=== PATIENT | female | born 2000 | race Caucasian/White ===

== ENCOUNTER 2018-08-08 09:32 | Emergency (ER) | payer MEDICAID, SELFPAY ==
[2018-08-08 09:34] VITALS: BP 145/63; PULSE 88; RESP 12; TEMP 36.6; O2SAT 98
--- NOTE | 2018-08-08 10:05 | DI.RAD_ITS ---
SYMPTOM/DIAGNOSIS: FOOSH RIGHT HAND: No fracture or dislocation is seen. IMPRESSION: Negative right hand.
--- NOTE | 2018-08-08 10:05 | DI.RAD_ITS ---
SYMPTOM/DIAGNOSIS: FOOSH RIGHT WRIST: No fracture or dislocation is seen. IMPRESSION: Negative right wrist.
--- NOTE | 2018-08-08 10:08 | W.ED.GENAD ---
Discharge Plan Disposition Patient Disposition: HOME Condition: Fair Discharge Details Chief Complaint: Orthopedic Clinical Impression: Contusion of right wrist Primary Care Provider: Janet Ferraro ED Provider: Sunita Smith Home Meds and New Rx's Prescriptions: Continue fluticasone [Flovent HFA] 12 GM HFA aerosol inhaler 2 puff Inhalation BID Qty: 1 RF: 1 inhalational spacing device [Aerochamber Mini] 1 EACH spacer 1 ea Miscellaneous Q4H PRN Qty: 1 RF: 0 methadone [Dolophine] 10 MG tablet 95 mg PO DAILY 365 Days Qty: 60 RF: 0 albuterol sulfate [ProAir HFA] 200 PUFF HFA aerosol inhaler 2 puff Inhalation Q4H PRN PRNQty: 1 RF: 0 gabapentin 800 MG tablet 800 mg PO BID RF: 0 fluoxetine 40 MG capsule 40 mg PO DAILY RF: 0 guanfacine 1 MG tablet 10 mg PO DAILY RF: 0 Discharge Instructions Instructions: Contusion in Adults (ED) Additional Instructions: Encourage rest, ice, elevation. Tylenol and/or ibuprofen as needed for discomfort. Ypu may take 1000 mg of Tylenol every 6 hours as well as 600 mg of ibuprofen every 6 hours . Continue with brace for pain persist. Please follow-up with primary care in the next 1-2 weeks if pain persists Referrals: Janet Ferraro, PROCESS ENG [Primary Care Provider] - ([phone]) Medical Decision Making [facility] Narrative Medical decision making narrative: Patient presents today with chief complaint of contusion to the left wrist. Patient reports that she fell 2 days ago striking the ulnar side of the left wrist. She has noted ecchymosis. Ecchymosis is noted on today's exam. She will not move the wrist secondary to discomfort. She reports she is Tylenol and ibuprofen initially but that this was unsuccessful at alleviating her discomfort. Patient does not feel this is sufficient for her pain. Patient will be given oral ketorolac. She is declining any injections. Patient is no longer breast-feeding. UPT was negative today was obtain imaging of the patient's left wrist and hand. Sensation is intact on exam. No deformity is notable. X-ray reviewed by myself as well as radiologist. I did consult with her on the phone and she advised that no acute abdomen is noted in the hand or wrist. Discussed findings with the patient. Advised contusion. Patient placed in the universal wrist splint. Encouraged rest, ice, elevation. Tylenol and/or ibuprofen as needed for discomfort. Advised follow-up with primary care in 1-2 weeks if pain persists. Advised him when she could safely take ibuprofen once again. All of her questions and concerns were addressed and she is in agreement with this plan HPI - General Adult General Mode of arrival: ambulatory. Date/Time Provider Initiated Documentation: 08/08/18 09:59. Limitations to Documentation: no limitations. Information obtained by: patient and family. HPI Narrative: Patient is a [id number] 18-year-old female presenting today with chief complaint of right hand and wrist pain. She reports that 2 days ago, while carrying her infant up a flight of stairs she tripped falling forward. Reports that she had the infant in her left hand and tacked to the right arm underneath her. Reports that she struck the ulnar side of the hand and wrist against the steps. Has noted ecchymosis over this area. Since that time has had exquisite discomfort with movement and has not been able to use the extremity. She denies any altered sensation. States that she also struck the right side of her chest but that this pain has since subsided. Denies any difficulty breathing or shortness of breath. LMP 1 month ago. She is trying to conceive Related Data Home Medications Medication Instructions Recorded Confirmed fluoxetine 40 mg PO DAILY 05/22/18 08/08/18 gabapentin 800 mg PO BID 05/22/18 08/08/18 guanfacine 10 mg PO DAILY 05/22/18 08/08/18 Previous Rx's Medication Instructions Recorded albuterol sulfate [ProAir HFA] 2 puff INHALATION Q4H PRN PRN #1 11/02/17 inh Allergies Allergy/AdvReac Type Severity Reaction Status Date / Time adhesive tape Allergy Intermediate Skin Rash/ Unverified 08/08/18 09:38 blisters latex AdvReac Unverified 08/08/18 09:38 General Stated Complaint: Orthopedic MARIALUISA: 4 Review of Systems Constitutional Denies chills and Denies fever(s) Cardiovascular Denies chest pain Respiratory Reports as per HPI Musculoskeletal Reports as per HPI Integumentary/Breasts Reports as per HPI Neurologic Reports as per HPI PFSH Family History Mother Substance abuse Father Substance abuse [place] Substance abuse GRANDPARENT Substance abuse Essential hypertension Depression Heart disease Hyperlipidemia Neoplasm Asthma Medical History ADHD (attention deficit hyperactivity disorder) Acne Anxiety Asthma Depression Eczema Headache Inguinal hernia Insomnia School problem UTI (urinary tract infection) Vision problem Social History Smoking/Tobacco Use Status: Current every day Surgical History section (03/14/18) Repair of inguinal hernia Repair of umbilical hernia (10/29/16) Tooth extraction Exam Const General: cooperative, healthy appearing, comfortable, no acute distress and well developed Nutritional Appearance: average body habitus Orientation: alert and awake Eyes General: appearance normal, both eyes and all related structures Resp Effort & Inspection: normal respiratory effort, able to speak in complete sentences and no respiratory distress Skin General skin exam: ecchymosis (oval area of ecchymosis over the dorsal ulnar side of the right wrist. ) Neuro General: alert and awake Cognition: normal cognition Speech: speech normal Gait: normal gait Motor: muscle tone normal throughout Sensory Exam: no sensory deficits noted Extrem General: abnormal to inspection (Exam of the patient's right upper extremity is significant for ecchymosis to the dorsal ulnar side of the wrist consistent with where she struck the wrist. Area of ecchymosis approximately 6 cm x 3 cm. She is refusing to move the wrist secondary to discomfort. ), abnormal ROM (With any type of range of motion, fingers or wrists she indicates the fourth and fifth metacarpals as well as the ulnar side of the wrist is area of discomfort. No palpable deformity. 2+ distal pulse), normal capillary refill, no joint enlargement and normal gait Psych Appearance: grossly normal Mental Status: mental status grossly normal Speech and Movement: speech and movement normal Course Vital Signs Temperature 36.6 C 08/08/18 09:34 Pulse 88 08/08/18 09:34 Respiratory Rate 12 08/08/18 09:34 Blood Pressure 145/63 H 08/08/18 09:34 Pulse Oximetry 98 08/08/18 09:34 Temperature 36.6 C 08/08/18 09:34 Pulse 88 08/08/18 09:34 Respiratory Rate 12 08/08/18 09:34 Blood Pressure 145/63 H 08/08/18 09:34 Pulse Oximetry 98 08/08/18 09:34
--- NOTE | 2018-08-08 10:11 | ED.GENADUL_ITS ---
Discharge Plan Disposition Patient Disposition: HOME Condition: Fair Discharge Details Chief Complaint: Orthopedic Clinical Impression: Contusion of right wrist Primary Care Provider: Janet Ferraro ED Provider: Sunita Smith Home Meds and New Rx's Prescriptions: Continue fluticasone [Flovent HFA] 12 GM HFA aerosol inhaler 2 puff Inhalation BID Qty: 1 RF: 1 inhalational spacing device [Aerochamber Mini] 1 EACH spacer 1 ea Miscellaneous Q4H PRN Qty: 1 RF: 0 methadone [Dolophine] 10 MG tablet 95 mg PO DAILY 365 Days Qty: 60 RF: 0 albuterol sulfate [ProAir HFA] 200 PUFF HFA aerosol inhaler 2 puff Inhalation Q4H PRN PRNQty: 1 RF: 0 gabapentin 800 MG tablet 800 mg PO BID RF: 0 fluoxetine 40 MG capsule 40 mg PO DAILY RF: 0 guanfacine 1 MG tablet 10 mg PO DAILY RF: 0 Discharge Instructions Instructions: Contusion in Adults (ED) Additional Instructions: Encourage rest, ice, elevation. Tylenol and/or ibuprofen as needed for discomfort. Ypu may take 1000 mg of Tylenol every 6 hours as well as 600 mg of ibuprofen every 6 hours . Continue with brace for pain persist. Please follow- up with primary care in the next 1-2 weeks if pain persists Referrals: Janet Ferraro, OVERHAULER [Primary Care Provider] - ([phone]) Medical Decision Making [facility] Narrative Medical decision making narrative: Patient presents today with chief complaint of contusion to the left wrist. Patient reports that she fell 2 days ago striking the ulnar side of the left wrist. She has noted ecchymosis. Ecchymosis is noted on today's exam. She will not move the wrist secondary to discomfort. She reports she is Tylenol and ibuprofen initially but that this was unsuccessful at alleviating her discomfort. Patient does not feel this is sufficient for her pain. Patient will be given oral ketorolac. She is declining any injections. Patient is no longer breast-feeding. UPT was negative today was obtain imaging of the patient's left wrist and hand. Sensation is intact on exam. No deformity is notable. X-ray reviewed by myself as well as radiologist. I did consult with her on the phone and she advised that no acute abdomen is noted in the hand or wrist. Discussed findings with the patient. Advised contusion. Patient placed in the universal wrist splint. Encouraged rest, ice, elevation. Tylenol and/or ibuprofen as needed for discomfort. Advised follow-up with primary care in 1-2 weeks if pain persists. Advised him when she could safely take ibuprofen once again. All of her questions and concerns were addressed and she is in agreement with this plan HPI - General Adult General Mode of arrival: ambulatory . Date/Time Provider Initiated Documentation: 08/08/18 09:59 . Limitations to Documentation: no limitations . Information obtained by: patient and family . HPI Narrative: Patient is a [id number] 18-year-old female presenting today with chief complaint of right hand and wrist pain. She reports that 2 days ago, while carrying her up a flight of stairs she tripped falling forward. Reports that she had the infant in her left hand and tacked to the right arm underneath her. Reports that she struck the ulnar side of the hand and wrist against the steps. Has noted ecchymosis over this area. Since that time has had exquisite discomfort with movement and has not been able to use the extremity. She denies any altered sensation. States that she also struck the right side of her chest but that this pain has since subsided. Denies any difficulty breathing or shortness of breath. LMP 1 month ago. She is trying to conceive Related Data Home Medications Medication Instructions Recorded Confirmed fluoxetine 40 mg PO DAILY 05/22/18 08/08/18 gabapentin 800 mg PO BID 05/22/18 08/08/18 guanfacine 10 mg PO DAILY 05/22/18 08/08/18 Previous Rx's Medication Instructions Recorded albuterol sulfate [ProAir HFA] 2 puff INHALATION Q4H PRN PRN #1 11/02/17 inh Allergies Allergy/AdvReac Type Severity Reaction Status Date / Time adhesive tape Allergy Intermediate Skin Rash/ Unverified 08/08/18 09:38 blisters latex AdvReac Unverified 08/08/18 09:38 General Stated Complaint: Orthopedic MARIALUISA: 4 Review of Systems Constitutional Denies chills and Denies fever(s) Cardiovascular Denies chest pain Respiratory Reports as per HPI Musculoskeletal Reports as per HPI Integumentary/Breasts Reports as per HPI Neurologic Reports as per HPI PFSH Family History Mother Substance abuse Father Substance abuse [place] Substance abuse GRANDPARENT Substance abuse Essential hypertension Depression Heart disease Hyperlipidemia Neoplasm Asthma Medical History ADHD (attention deficit hyperactivity disorder) Acne Anxiety Asthma Depression Eczema Headache Inguinal hernia Insomnia School problem UTI (urinary tract infection) Vision problem Social History Smoking/Tobacco Use Status: Current every day Surgical History section (03/14/18) Repair of inguinal hernia Repair of umbilical hernia (10/29/16) Tooth extraction Exam Const General: cooperative, healthy appearing, comfortable, no acute distress and well developed Nutritional Appearance: average body habitus Orientation: alert and awake Eyes General: appearance normal, both eyes and all related structures Resp Effort & Inspection: normal respiratory effort, able to speak in complete sentences and no respiratory distress Skin General skin exam: ecchymosis (oval area of ecchymosis over the dorsal ulnar side of the right wrist. ) Neuro General: alert and awake Cognition: normal cognition Speech: speech normal Gait: normal gait Motor: muscle tone normal throughout Sensory Exam: no sensory deficits noted Extrem General: abnormal to inspection (Exam of the patient's right upper extremity is significant for ecchymosis to the dorsal ulnar side of the wrist consistent with where she struck the wrist. Area of ecchymosis approximately 6 cm x 3 cm. She is refusing to move the wrist secondary to discomfort. ), abnormal ROM ( With any type of range of motion, fingers or wrists she indicates the fourth and fifth metacarpals as well as the ulnar side of the wrist is area of discomfort. No palpable deformity. 2+ distal pulse), normal capillary refill, no joint enlargement and normal gait Psych Appearance: grossly normal Mental Status: mental status grossly normal Speech and Movement: speech and movement normal Course Vital Signs Temperature 36.6 C 08/08/18 09:34 Pulse 88 08/08/18 09:34 Respiratory Rate 12 08/08/18 09:34 Blood Pressure 145/63 H 08/08/18 09:34 Pulse Oximetry 98 08/08/18 09:34 Temperature 36.6 C 08/08/18 09:34 Pulse 88 08/08/18 09:34 Respiratory Rate 12 08/08/18 09:34 Blood Pressure 145/63 H 08/08/18 09:34 Pulse Oximetry 98 08/08/18 09:34
[2018-08-08] MEDS: Ketorolac 10 MG TAB PO (10:16)
== END 2018-08-08 11:29 | disposition home or self-care (01) ==
PROVIDERS: Emergency Provider Physician Assistant; PCP Nurse Practitioner Family
DX: S60.211A Contusion of right wrist, initial encounter (principal); W10.8XXA Fall (on) (from) other stairs and steps, initial encounter
CPT/HCPCS: 29125; 99284; 73110; 73130; L3908

== ENCOUNTER 2018-10-11 15:54 | Outpatient (REF) | payer MEDICAID, SELFPAY ==
[2018-10-11 19:23] LABS: *AMPHETAMINES SCREEN URINE Negative (Negative); *BARBITURATES SCREEN URINE Negative (Negative); *BENZODIAZEPINES SCREEN URINE Negative (Negative); Cannabinoids THC POSITIVE (Negative); Cocaine Screen,Urine Negative (Negative); METHADONE URINE SCREEN POSITIVE (Negative); OPIATES URINE SCREEN Negative (Negative)
[2018-10-11 19:24] LABS: Tricyclic Antidepressants Negative (Negative)
[2018-10-13 14:27] LABS: Chlamydia Result Negative; GC Result Negative; Specimen Description CERVIX
[2018-10-15 12:56] LABS: Buprenorphine Negative; Norbuprenorphine Negative
== END 2018-10-11 16:14 ==
LOC: LBN 15:54
PROVIDERS: Visit Provider Nurse Practitioner Women's Health
DX: Z02.83 Encounter for blood-alcohol and blood-drug test (principal); Z11.3 Encounter for screening for infections with a predominantly sexual mode of transmission
CPT/HCPCS: 80307; 87491; 87591

== ENCOUNTER 2018-11-15 16:49 | Outpatient (REF) | payer MEDICAID, SELFPAY ==
[2018-11-17 14:46] LABS: Chlamydia Result Negative; GC Result Negative; Specimen Description CERVIX
== END 2018-11-15 17:09 ==
LOC: LBN 16:49
PROVIDERS: Visit Provider Obstetrics & Gynecology
DX: R39.89 Other symptoms and signs involving the genitourinary system (principal); Z11.3 Encounter for screening for infections with a predominantly sexual mode of transmission
CPT/HCPCS: 87077; 87491; 87591; 87086; 87186

== ENCOUNTER 2019-04-28 16:04 | Emergency (ER) | payer MEDICARE, MEDICAID, SELFPAY ==
[2019-04-28 16:13] VITALS: BP 122/75; PULSE 110; RESP 16; TEMP 37.6; O2SAT 94
[2019-04-28 17:09] LABS: Lactate-non-spesis 0.9 mmol/l (0.6-1.4)
[2019-04-28] MEDS: Ketorolac 15 MG/ML VIAL IVP (17:15)
--- NOTE | 2019-04-28 17:16 | ED.GENADUL_ITS ---
Discharge Plan Disposition Patient Disposition: HOME Discharge Details Chief Complaint: Orthopedic Clinical Impression: Sciatica of right side, Abdominal pain, Ovarian cyst Primary Care Provider: Xavi Laurent ED Provider: Aric Keen Home Meds and New Rx's Prescriptions: New prednisone 20 mg tablet 40 mg PO ONCE 4 Days Qty: 8 RF: 0 No Action buprenorphine-naloxone [Suboxone] 2-0.5 mg film 2 film SL DAILY RF: 0 buprenorphine-naloxone [Suboxone] 8-2 mg film 1 film SL DAILY RF: 0 Flovent HFA 12 GM HFA aerosol inhaler 2 puff Inhalation BID Qty: 1 RF: 1 Aerochamber Mini 1 EACH spacer 1 ea Miscellaneous Q4H PRN Qty: 1 RF: 0 albuterol sulfate [ProAir HFA] 200 PUFF HFA aerosol inhaler 2 puff Inhalation Q4H PRN PRNQty: 1 RF: 0 gabapentin 400 mg Capsule 400 mg PO TID RF: 0 Discharge Instructions Instructions: Ovarian Cyst (ED), Sciatica (ED), Abdominal Pain (ED) Additional Instructions: Your exam today is consistent with acute sciatica. Often times these issues will resolve with rest and supportive care including nonsteroidal anti- inflammatories. Because of the degree of your pain it was decided to start a short course of steroids. It is very important that you take these to their completion. Return to the emergency department should you develop paralysis, urinary incontinence, urinary retention or numbness and tingling of the groin. It was also found in your work-up that you have a small right ovarian cyst. This may be contributing to some of your abdominal discomfort. There was no evidence of acute appendicitis . If your symptoms persist you must follow-up with women's health to discuss treatment options. Referrals: Xavi Laurent [Primary Care Provider] - 1 week Medical Decision Making This is a nontoxic-appearing 19-year-old female who presents to the emergency department with the above noted chief complaint. Her symptoms appear to be that of sciatica however reports pain radiating into her right upper/right lower quadrant of her abdomen. Her abdomen is soft however notably tender in the right lower quadrant/suprapubic region. No CVA tenderness. Her lumbar exam reveals right paraspinal tenderness consistent with that of lumbar radiculopathy/sciatica. She is neurologically intact involving both lower e xtremities. She does have a positive straight leg raise of her right lower extremity. No evidence to support cauda equina. With her abdominal complaint we will proceed with labs along with urinalysis. We will likely proceed with pelvic exam.. Labs otherwise unremarkable. Her pelvic exam reveals normal-appearing cervix with minimal discharge. No CVM. No adnexal tenderness. She does have co ntinued marketed right lower quadrant pain. I explained to her that I cannot rule out an appendicitis. It was decided to pursue CT scan. CT scan negative for acute appendicitis. She does have a noted 19 x 21 mm right ovarian simple cyst. This may be contributing to some of her discomfort. Her sciatic pain today is quite describes tingling of the entire leg. Will give a short course of prednisone for symptomatic management. We discussed in detail return precautions. She will follow-up with women's health regarding her ovarian cyst. She is stable and ready for discharge HPI General Date/Time Provider Initiated Documentation: 04/28/19 16:13 . HPI Narrative: Patient is a 19-year-old female with a significant past medical history for hepatitis C, frequent UTIs, former IV drug user, and sciatica who presents today with right lower back pain radiating into her right leg and right lower abdomen. She describes the pain as a burning sensation. Pain today is similar to previous sciatica flares however her abdominal pain appears to be new. She reports chills and sweats. No objective fever noted. She denies any dysuria, hematuria, urinary frequency or urgency. No urinary incontinence. She denies any vaginal bleeding, discharge, pain with intercourse. She has felt nauseous secondary to the pain. She denies . She is not currently using IV drugs. She reports taking ibuprofen 600 mg every 4-6 hours for her pain without improvement. Related Data Home Medications Medication Instructions Recorded Confirmed Aerochamber Mini #1 inh.kit 06/03/15 11/15/18 Flovent HFA 2 puff INHALATION BID #1 inhaler 06/03/15 04/28/19 albuterol sulfate [ProAir HFA] 2 puff INHALATION Q4H PRN PRN #1 11/02/17 04/28/19 inh buprenorphine 2 mg-naloxone 0.5 mg 2 film SL DAILY 11/15/18 04/28/19 sublingual film buprenorphine 8 mg-naloxone 2 mg 1 film SL DAILY 11/15/18 04/28/19 sublingual film gabapentin 400 mg PO TID 04/28/19 04/28/19 prednisone 40 mg PO ONCE 4 Days #8 tab 04/28/19 Previous Rx's Medication Instructions Recorded albuterol sulfate [ProAir HFA] 2 puff INHALATION Q4H PRN PRN #1 11/02/17 inh prednisone 40 mg PO ONCE 4 Days #8 tab 04/28/19 Allergies Allergy/AdvReac Type Severity Reaction Status Date / Time adhesive tape Allergy Intermediate Skin Rash/ Unverified 04/28/19 16:16 blisters latex AdvReac Unverified 04/28/19 16:16 General Stated Complaint: Orthopedic MARIALUISA: 4 Review of Systems Constitutional Reports chills, Denies fatigue, Denies fever(s), Denies headache(s), Denies lethargy, Denies malaise, Denies night sweats and Denies weakness ENT Denies dizziness, Denies headache(s) and Denies neck pain Cardiovascular Denies chest pain, Denies syncope, Denies rapid heart rate, Denies edema, Denies leg edema, Denies palpitations and Denies dyspnea Respiratory Denies chest congestion, Denies cough, Denies hemoptysis and Denies dyspnea Gastrointestinal Reports abdominal pain, Denies melena, Denies change in bowel habits, Denies coffee ground emesis, Denies constipation, Denies cramping, Denies diarrhea, Reports nausea, Denies vomiting and Denies hematemesis Genitourinary Denies abnormal menses, Denies abnormal vaginal bleeding, Denies hematuria, Phi es urinary frequency, Denies difficulty voiding, Denies genital lesions, Denies dysuria, Denies pelvic pain, Denies sexual dysfunction, Reports flank pain, Denies urinary incontinence, Denies urinary hesitancy, Denies urinary urgency, Denies vaginal discharge, Denies vaginal odor and Denies vaginal pruritus Musculoskeletal Reports back pain, Denies myalgias, Denies deformity, Denies arthralgias, Denies joint swelling, Denies limited range of motion, Denies muscle cramps, Denies muscle weakness, Denies neck pain, Reports numbness and Reports tingling Integumentary/Breasts Denies bleeding lesions and Denies rash Neurologic Denies dizziness, Denies syncope, Denies headache(s), Reports numbness, Reports tingling and Denies weakness Endocrine Denies fatigue and Denies palpitations Hematologic/Lymphatic Denies easy bleeding, Denies easy bruising and Denies lymphadenopathy PFSH Medical History Hepatitis C carrier (Acute) ADHD (attention deficit hyperactivity disorder) Acne Anxiety Asthma Depression Eczema Headache Inguinal hernia Insomnia School problem UTI (urinary tract infection) Vision problem Surgical History section (03/14/18) Repair of inguinal hernia Repair of umbilical hernia (10/29/16) Tooth extraction Family History Mother Substance abuse Father Substance abuse [place] Substance abuse GRANDPARENT Substance abuse Essential hypertension Depression Heart disease Hyperlipidemia Neoplasm Asthma Social History Smoking/Tobacco Use Status: Current every day Tobacco Type: cigarettes Quit status: considering quitting Counseling given: provider counseling Alcohol Intake: never Drug use: Daily Substance use type: former substance user Date of last use: off methadone 08/08/18, crack/cocaine, opiates and IV drugs Counseling provided: treatment program and other Do you feel safe in your relationship?: Yes Female Reproductive History Menstrual control method: none History History 2 Para 1 Hx # Term Pregnancies Multiple births Hx # Pregnancies Ectopic pregnancies AB induced Hx Number of Living Children AB spontaneous Exam Const General: cooperative, healthy appearing, no acute distress and acute distress Nutritional Appearance: average body habitus Orientation: alert, awake and oriented x3 HENMT Head: normal to inspection Ears: hearing grossly normal bilaterally General nose exam: external nose normal Face and sinus: normal facial exam Mouth: oral mucosae normal Eyes General: appearance normal, both eyes and all related structures Neck Neck: normal visual inspection, full ROM, no lymphadenopathy and no meningeal signs Chest Chest: normal inspection of the chest and normal palpation of entire chest wall Resp Effort & Inspection: normal respiratory effort and able to speak in complete sentences Auscultation: clear to auscultation bilaterally Cardio Jugular venous pressure: no JVD Palpation: normal PMI Rate: regular rate Rhythm: regular rhythm Heart Sounds: S1 normal and S2 normal Pulses: normal peripheral pulses GI Inspection: normal to inspection Palpation: soft, no guarding and tender in the RLQ and in the RUQ General: bimanual renal exam normal bilaterally External Female Exam: external appearance normal Speculum Exam - Vagina: normal appearance of the vagina and normal vaginal discharge Speculum Exam - Cervix: normal appearance of the cervix Bimanual Exam- Vagina & Uterus: normal bimanual exam Bimanual Exam- Adnexa, other: normal adnexae and adnexae mobile Back/Spine/Pelvis Back: no CVA tenderness Cervical Spine: normal cervical lordosis Thoracic/Lumbar Spine: thoracic and lumbar spine normal to inspection, lumbar spinal tenderness and straight leg raise positive Skin General skin exam: no rashes or lesions noted Neuro General: alert, awake, oriented x3, no focal motor deficits and CN's II-XI intact bilaterally Cranial Nerves: CN's II-XI intact bilaterally Gait: gait assisted Motor: muscle tone normal throughout and strength abnormal (4/5 strength with hip flexion, leg extension, dorsi/plantarflexion RLE) Sensory Exam: no sensory deficits noted Extrem General: normal to inspection, normal capillary refill, no joint enlargement, no pedal edema and no calf tenderness Course Vital Signs Temperature 37.6 C H 04/28/19 16:13 Pulse 110 H 04/28/19 16:13 Respiratory Rate 16 04/28/19 16:13 Blood Pressure 122/75 04/28/19 16:13 Pulse Oximetry 94 L 04/28/19 16:13 Temperature 37.6 C H 04/28/19 16:13 Temperature Source Skin 04/28/19 16:13 Pulse 110 H 04/28/19 16:13 Respiratory Rate 16 04/28/19 16:13 Respiratory Effort Non-Labored 04/28/19 16:13 Blood Pressure 122/75 04/28/19 16:13 Blood Pressure Position Sitting 04/28/19 16:13 Pulse Oximetry 94 L 04/28/19 16:13 Oxygen Delivery Method Room Air 04/28/19 16:13 Oxygen Flow Rate 0 04/28/19 16:13 Pain Level 9 04/28/19 16:13
[2019-04-28 17:18] LABS: Bilirubin Negative (Negative); Blood Negative (Negative); Clarity Clear; Glucose Negative (Negative); Ketones Trace mg/dL (Negative); Leukocyte Esterase Trace (Negative); Nitrite Negative (Negative); pH 8.5 (5-8)
[2019-04-28 17:18] LABS: Abs Immature Grans 0.01 k/cumm (0.0-0.09); Absolute Basophil Count 0.04 k/cumm (0.0-0.2); Absolute Eosinophil Count 0.22 k/cumm (0.0-0.7); Absolute Lymphocyte Count 2.16 k/cumm (1.2-3.4); Absolute Monocyte Count 0.64 k/cumm (0.11-0.7); Absolute Neutrophil Count 2.43 k/cumm (1.2-6.7); Basophils % 0.7; HCT 40.5 % (36.0-46.0); Immature Grans % 0.2; Lymphocytes % 39.3; Mean Corp. HGB Concentration 34.6 g/dL (32.0-36.0); Mean Corpuscular Hemoglobin 30.6 pg (27.0-33.0); Mean Corpuscular Volume 88.4 fL (80-95); Mean Platelet Volume 10.3 fL (8.0-11.0); Monocytes % 11.6; Neutrophils % 44.2; Platelet Count 239 x1000/uL (130-400); RBC 4.58 m/cumm (4.00-5.20); RBC Distribution Width 13.8 % (11.7-14.6)
[2019-04-28 17:41] LABS: Bacteria Moderate HPF (Negative); C & S Indicated? No/Sq. Contamination; Casts Negative LPF (Negative); Crystals Negative HPF (Negative); Epithelial Cells Moderate HPF (Negative); Mucus Negative (Negative)
[2019-04-28 17:48] LABS: ALT 10 U/L (12-78); AST 10 U/L (15-37); Alkaline Phosphatase 53 U/L (46-116); Anion Gap 8.4 mmol/L (3-11); BUN 7 mg/dL (7-18); Bilirubin, Total 0.2 mg/dL (0.2-1.0); CO2 28.6 mmol/L (21.0-32.0); CREATININE 0.74 mg/dL (0.55-1.02); Calcium 8.7 mg/dL (8.5-10.1); Chloride 103 mmol/L (98-107); Glucose 94 mg/dL (70-100); Magnesium 1.7 mg/dL (1.8-2.4); Potassium 3.9 mmol/L (3.5-5.1); Sodium 140 mmol/L (136-145)
[2019-04-28 17:59] LABS: *AMPHETAMINES SCREEN URINE POSITIVE (Negative); *BARBITURATES SCREEN URINE Negative (Negative); *BENZODIAZEPINES SCREEN URINE Negative (Negative); Cannabinoids THC POSITIVE (Negative); Cocaine Screen,Urine Negative (Negative); METHADONE URINE SCREEN Negative (Negative); OPIATES URINE SCREEN Negative (Negative)
[2019-04-28 18:00] LABS: Tricyclic Antidepressants Negative (Negative)
[2019-04-28 18:01] LABS: HCG Qual (Serum) Negative
--- NOTE | 2019-04-28 18:55 | DI.CT_ITS ---
SYMPTOM/DIAGNOSIS: RLQ PAIN, NAUSEA, ANOREXIA, CHILLS ABDOMEN AND PELVIC CT: CT examination of the abdomen and pelvis was performed with a bolus infusion of 100 cc's of Omnipaque 350. Images obtained through the lung bases are unremarkable. Note is made of cholelithiasis. No biliary dilatation is seen. Liver and spleen are unremarkable as is the pancreas. Adrenals and kidneys appear normal. No urinary tract calcification or obstruction. No significant abdominal wall hernia is seen. No significant abdominal or pelvic adenopathy is seen. Abdominal aorta is of normal diameter and no major vascular abnormality is seen. Appendix is normal. No evidence of diverticulitis or bowel obstruction. There is moderate free fluid in the pelvis. There is a 21 mm. in diameter low attenuation right ovarian lesion consistent with cyst, consider leaking cyst. Uterus unremarkable in appearance by CT criteria. CONCLUSION: Nonspecific free fluid in the pelvis, consider ruptured ovarian cyst. Pelvic ultrasound should be considered for follow up.
[2019-04-28] MEDS: predniSONE 20 MG TAB 40 MG PO (19:12)
[2019-04-28] MEDS: Omnipaque 350 MG/ML 100 ML BTL IJ (19:35)
--- NOTE | 2019-04-28 20:25 | DI.VRAD_ITS ---
EXAM: CT Abdomen and Pelvis With Contrast EXAM DATE/TIME: 04/28/2019 6:56 PM CLINICAL HISTORY: 19 years old, female; Abdominal pain TECHNIQUE: Imaging protocol: Axial computed tomography images of the abdomen and pelvis with intravenous contrast. Coronal and sagittal reformatted images were created and reviewed. COMPARISON: CT ABD PELVIS WITH CONTRAST 05/21/2017 8:15 AM FINDINGS: ABDOMEN: Liver: Normal. No mass. Gallbladder and bile ducts: Multiple small low-density, cholesterol-based gallstones within the gallbladder, otherwise normal gallbladder. No biliary tract dilatation. Pancreas: Normal. No ductal dilation. Spleen: Normal. No splenomegaly. Adrenals: Normal. No mass. Kidneys and ureters: Normal. No hydronephrosis. Stomach and bowel: Normal. No obstruction. No mucosal thickening. Appendix: Normal appendix. PELVIS: Bladder: Unremarkable as visualized. Reproductive: 19 x 21 mm right ovarian simple cyst. 12 mm left ovarian simple cyst. Normal uterus. ABDOMEN and PELVIS: Intraperitoneal space: Small amount of free fluid in the posterior pelvis. Bones/joints: No acute fracture. No dislocation. Soft tissues: Unremarkable. Vasculature: Normal. No abdominal aortic aneurysm. Lymph nodes: Normal. No enlarged lymph nodes. IMPRESSION: 1. 19 x 21 mm right ovarian simple cyst. 12 mm left ovarian simple cyst. 2. Small amount of free fluid in the posterior pelvis. 3. Multiple small low-density, cholesterol-based gallstones within the gallbladder, otherwise normal gallbladder. Dictated and Authenticated by: Sean Ortiz MD. Ordering:HORTENCIA Corbett MD
[2019-04-30 13:37] LABS: Chlamydia Result Negative; GC Result Negative
== END 2019-04-28 20:56 | disposition home or self-care (01) ==
PROVIDERS: Emergency Provider Physician Assistant; PCP Family Medicine
DX: M54.31 Sciatica, right side (principal); R10.31 Right lower quadrant pain; N83.201 Unspecified ovarian cyst, right side
CPT/HCPCS: 36415; 80053; 80307; 81025; 87491; 87591; 96374; 99285; 74177; 81003; 81015; 83605; 83735; 84703; 85025; 87480; 87510; 87660; 99284; E0114; J1885; J3490; J7512

== ENCOUNTER 2019-04-29 13:07 | Emergency (ER) | payer MEDICARE, MEDICAID, SELFPAY ==
[2019-04-29 13:12] VITALS: BP 125/75; PULSE 83; RESP 16; TEMP 36.6; O2SAT 99
[2019-04-29] MEDS: Lidocaine 5% Patch 1 PATCH TP (14:15)
[2019-04-29] MEDS: Ketorolac 60 MG/2 ML VIAL IM (14:15)
[2019-04-29] MEDS: Cyclobenzaprine 10 MG TAB PO (14:15)
--- NOTE | 2019-04-29 14:41 | ED.GENADUL_ITS ---
Discharge Plan Disposition Patient Disposition: HOME Condition: Stable Discharge Details Chief Complaint: Nk/Back Pain Clinical Impression: Sciatica of right side, Ovarian cyst Primary Care Provider: Xavi Laurent ED Provider: Ventura Hightower Home Meds and New Rx's Prescriptions: New lidocaine 5 % adhesive patch,medicated 1 patch TP DAILY PRN (Reason: pain) Qty: 15 RF: 0 diclofenac potassium 50 mg tablet 50 mg PO TID PRN (Reason: pain) Qty: 15 RF: 0 cyclobenzaprine 10 mg tablet 10 mg PO TID PRN (Reason: muscle spasm) Qty: 20 RF: 0 Continued buprenorphine-naloxone [Suboxone] 2-0.5 mg film 2 film SL DAILY RF: 0 buprenorphine-naloxone [Suboxone] 8-2 mg film 1 film SL DAILY RF: 0 Flovent HFA 12 GM HFA aerosol inhaler 2 puff Inhalation BID Qty: 1 RF: 1 Aerochamber Mini 1 EACH spacer 1 ea Miscellaneous Q4H PRN Qty: 1 RF: 0 albuterol sulfate [ProAir HFA] 200 PUFF HFA aerosol inhaler 2 puff Inhalation Q4H PRN PRNQty: 1 RF: 0 gabapentin 400 mg Capsule 400 mg PO TID RF: 0 Discharge Instructions Instructions: Ovarian Cyst (ED), Sciatica (ED) Additional Instructions: Please take your medication as prescribed and slowly advance activity as tolerated. You may perform gentle low back stretches as previously instructed by physical therapy to help with your symptoms. If not improving over the next week follow-up with your primary care provider for reassessment Referrals: Xavi Laurent [Primary Care Provider] - 1 week (If not improving over the next week please follow-up with your primary care provider for reassessment.) Discharge Data Discharge Date/Time-TO BE ENTERED AT DEPARTURE: 04/29/19 14:53 Medical Decision Making Patient presenting the emergency department for continued back pain. Patient was in the emergency department yesterday with thorough examination. Patient states no change in symptoms discontinue symptoms and that she has never had sciatica of this bad before. Physical exam shows positive straight leg raise on the right, lower lumbar tenderness including the paraspinal tissue on the right side and sciatic notch tenderness that worsen symptoms. Patient does state sensation of numbness down the anterior aspect of her thigh radiating into her knee with occasional radiation down to her ankle. Sensation is intact throughout this entire area reflexes intact. Patient does state that pressure on her ankle seem to help with her symptoms last night but otherwise the steroids are not helping. Physical exam is non-worrisome for central cord syndrome, cauda equina, epidural abscess, or other emergent findings but patient states 7-year history of sciatica even to the point of causing her to be unemployed and disabled patient also then reports some abdominal pain consistent with yesterday's exam in the right lower quadrant. Yesterday's note was thoroughly reviewed along with radiological imaging showing ovarian cyst. I feel that some of patient's repeat visit is anxiety due to to discomfort and being unaware of duration of natural course of symptoms without quick resolution. Had a long and lengthy discussion about typical course for ovarian cyst which she should follow-up with woman's wellness along with her sciatica which is more of her complaint today. After this discussion we agreed upon plan of care for her to receive ketorolac IM, received lidocaine patch, and Flexeril. Patient was prescribed lidocaine patch, Flexeril, and diclofenac for home use after period of observation which she stated her symptoms improved. HPI General Mode of arrival: ambulatory . Date/Time Provider Initiated Documentation: 04/29/19 13:20 . Limitations to Documentation: no limitations . Information obtained by: patient and RN notes reviewed . History of Present Illness described as severe and similar to prior episodes, with intensity rated at 10. Quality is described as sharp, and is localized to the back. Patient extremity (right leg). Patient started experiencing this day(s) (3) and it has been constant. No relieving factors improve symptom(s), No exacerbating factors reported . Patient did receive the following treatments prior to arrival, other (steriod ) Related Data Home Medications Medication Instructions Recorded Confirmed Aerochamber Mini #1 inh.kit 06/03/15 11/15/18 Flovent HFA 2 puff INHALATION BID #1 inhaler 06/03/15 04/29/19 albuterol sulfate [ProAir HFA] 2 puff INHALATION Q4H PRN PRN #1 11/02/17 04/29/19 inh buprenorphine 2 mg-naloxone 0.5 mg 2 film SL DAILY 11/15/18 04/28/19 sublingual film buprenorphine 8 mg-naloxone 2 mg 1 film SL DAILY 11/15/18 04/29/19 sublingual film gabapentin 400 mg PO TID 04/28/19 04/29/19 cyclobenzaprine 10 mg PO TID PRN #20 tab 04/29/19 diclofenac potassium 50 mg PO TID PRN #15 tab 04/29/19 lidocaine 1 patch TP DAILY PRN #15 each 04/29/19 Previous Rx's Medication Instructions Recorded albuterol sulfate [ProAir HFA] 2 puff INHALATION Q4H PRN PRN #1 11/02/17 inh cyclobenzaprine 10 mg PO TID PRN #20 tab 04/29/19 diclofenac potassium 50 mg PO TID PRN #15 tab 04/29/19 lidocaine 1 patch TP DAILY PRN #15 each 04/29/19 Allergies Allergy/AdvReac Type Severity Reaction Status Date / Time adhesive tape Allergy Intermediate Skin Rash/ Unverified 04/28/19 16:16 blisters latex AdvReac Unverified 04/28/19 16:16 General Stated Complaint: Nk/Back Pain MARIALUISA: 4 Review of Systems Constitutional Denies chills and Denies fever(s) Cardiovascular Denies chest pain and Denies dyspnea on exertion Respiratory Denies cough and Denies dyspnea on exertion Gastrointestinal Denies abdominal pain, Denies change in bowel habits, Denies diarrhea, Denies nausea and Denies vomiting Genitourinary Denies urinary incontinence Musculoskeletal Reports as per HPI and Reports back pain Neurologic Denies sensory deficit PFSH Medical History Hepatitis C carrier (Acute) ADHD (attention deficit hyperactivity disorder) Acne Anxiety Asthma Depression Eczema Headache Inguinal hernia Insomnia School problem UTI (urinary tract infection) Vision problem Surgical History section (03/14/18) Repair of inguinal hernia Repair of umbilical hernia (10/29/16) Tooth extraction Family History Mother Substance abuse Father Substance abuse [place] Substance abuse GRANDPARENT Substance abuse Essential hypertension Depression Heart disease Hyperlipidemia Neoplasm Asthma Social History Smoking/Tobacco Use Status: Current every day Tobacco Type: cigarettes Quit status: considering quitting Counseling given: provider counseling Alcohol Intake: never Drug use: Daily Substance use type: former substance user Date of last use: off methadone 08/08, crack/cocaine, opiates and IV drugs Counseling provided: treatment program and other Do you feel safe in your relationship?: Yes Female Reproductive History Menstrual control method: none History History 2 Para 1 Hx # Term Pregnancies Multiple births Hx # Pregnancies Ectopic pregnancies AB induced Hx Number of Living Children AB spontaneous Exam Const General: cooperative and no acute distress Orientation: alert, awake and oriented x3 Neck Neck: normal visual inspection, full ROM and no meningeal signs Resp Effort & Inspection: normal respiratory effort Auscultation: clear to auscultation bilaterally Cardio Rate: regular rate Rhythm: regular rhythm Heart Sounds: S1 normal and S2 normal GI Palpation: no hepatosplenomegaly, no aortic enlargement, no masses and no pul satile masses Back/Spine/Pelvis Thoracic/Lumbar Spine: pain with thoraco-lumbar ROM and thoraco-lumbar ROM limited Pelvis: no pain with anterior-posterior compression, no pain with lateral compression, buttock tenderness on the right and sciatic notch tenderness on the right Neuro General: alert, awake and oriented x3 DTR's: Rt Patellar: 2+, Lt Patellar: 2+, Rt Ankle: 2+ and Lt Ankle: 2+ Extrem Right lower extremity: hip/thigh Details: normal to inspection, knee Details: normal to inspection and lower leg Details: normal to inspection Course Vital Signs Temperature 36.6 C 04/29/19 13:12 Pulse 83 04/29/19 13:12 Respiratory Rate 16 04/29/19 13:12 Blood Pressure 125/75 04/29/19 13:12 Pulse Oximetry 99 04/29/19 13:12 Temperature 36.6 C 04/29/19 13:12 Temperature Source Temporal Artery Scan 04/29/19 13:12 Pulse 83 04/29/19 13:12 Respiratory Rate 16 04/29/19 13:12 Respiratory Effort 04/29/19 13:17 Blood Pressure 125/75 04/29/19 13:12 Pulse Oximetry 99 04/29/19 13:12 Oxygen Delivery Method Room Air 04/29/19 13:12 Oxygen Flow Rate 0 04/29/19 13:12 Pain Level 10 04/29/19 13:12
--- NOTE | 2019-04-30 08:17 | W.ED.FU ---
Follow Up Plan: Vaginal pathogen screen resulted as positive for Gardnerella, negative for Maria T and trichomonas. I called the patient 04/30/19 [phone] and left a voicemail requesting call back.
--- NOTE | 2019-04-30 08:19 | ED.FU.B_ITS ---
Follow Up Plan: Vaginal pathogen screen resulted as positive for Gardnerella, negative for Maria T and trichomonas. I called the patient 04/30/19 [phone] and left a voicemail requesting call back.
== END 2019-04-29 14:53 | disposition home or self-care (01) ==
PROVIDERS: Emergency Provider Nurse Practitioner Family; PCP Family Medicine
DX: M54.31 Sciatica, right side (principal); N83.201 Unspecified ovarian cyst, right side
CPT/HCPCS: 96372; 99284; J1885

== ENCOUNTER 2019-08-17 18:09 | Emergency (ER) | payer MEDICARE, MEDICAID, SELFPAY ==
[2019-08-17 18:18] VITALS: BP 120/66; PULSE 99; RESP 20; TEMP 37.2; O2SAT 97
[2019-08-17 19:04] LABS: Bilirubin Negative (Negative); Blood Negative (Negative); Clarity Clear (Clear); Glucose Negative (Negative); Ketones Negative (Negative); Leukocyte Esterase Trace (Negative); Nitrite Negative (Negative); Specific Gravity 1.015 (1.005-1.025); Urobilinogen 0.2 EU/dL (Up TO 0.2); pH 6.5 (5-8)
[2019-08-17 19:19] LABS: Bacteria Negative HPF (Negative); C & S Indicated? No/Sq. Contamination; Casts Negative LPF (Negative); Crystals Negative HPF (Negative); Epithelial Cells Many HPF (Negative); Mucus Negative (Negative); Other Cells Negative (Negative); RBC Negative (0-2)
[2019-08-17] MEDS: Omnipaque 350 MG/ML 100 ML BTL IJ (20:49)
--- NOTE | 2019-08-17 20:52 | DI.CT_ITS ---
EXAM: CT ABDOMEN PELVIS W CLINICAL HISTORY: abdominal pain. TECHNIQUE: COMPARISON: CT ABDOMEN PELVIS W from 04/28/2019 FINDINGS: CT examination of the abdomen and pelvis was performed with bolus infusion of 100 cc of Omnipaque 350 . Images obtained through the lung bases are unremarkable. Liver and spleen appear normal. Note is made of cholelithiasis without evidence of biliary dilatation. Pancreas appears normal. Adrenals a nd kidneys appear normal. Abdominal aorta is of normal diameter and no major vascular abnormality is seen. No significant abdominal wall hernia seen. No abdominal or pelvic adenopathy seen. Appendix appears normal. No evidence of bowel obstruction. Note is made of small quantity of free fluid in the pelvis. Right ovary is questionably enlarged and contains high attenuation material, question right ovarian hemorrhagic cyst. Right ovarian torsion not excluded. IMPRESSION: Mild right ovarian enlargement compared to the left, question right ovarian hemorrhagic cyst, ovarian torsion not excluded. Correlation with pelvic ultrasound should be considered.
[2019-08-17 20:53] LABS: ALT 9 U/L (14-59); AST 12 U/L (15-37); Albumin 3.6 g/dL (3.4-5.0); Alkaline Phosphatase 50 U/L (46-116); Anion Gap 6.3 mmol/L (3-11); BUN 8 mg/dL (7-18); Bilirubin, Total 0.3 mg/dL (0.2-1.0); CO2 27.7 mmol/L (21.0-32.0); CREATININE 0.71 mg/dL (0.55-1.02); Chloride 107 mmol/L (98-107); Glucose 79 mg/dL (70-100); Potassium 3.8 mmol/L (3.5-5.1); Sodium 141 mmol/L (136-145); Total Protein 6.4 g/dL (6.4-8.2)
[2019-08-17 21:03] LABS: Abs Immature Grans 0.01 k/cumm (0.0-0.09); Absolute Basophil Count 0.07 k/cumm (0.0-0.2); Absolute Eosinophil Count 0.31 k/cumm (0.0-0.7); Absolute Lymphocyte Count 2.97 k/cumm (1.2-3.4); Absolute Monocyte Count 0.89 k/cumm (0.11-0.7); Absolute Neutrophil Count 4.41 k/cumm (1.2-6.7); Basophils % 0.8; Eosinophils % 3.6; HCT 39.2 % (36.0-46.0); HGB 13.4 g/dL (12.0-15.5); Immature Grans % 0.1; Lymphocytes % 34.3; Mean Corp. HGB Concentration 34.2 g/dL (32.0-36.0); Mean Corpuscular Hemoglobin 31.6 pg (27.0-33.0); Mean Corpuscular Volume 92.5 fL (80-95); Mean Platelet Volume 10.8 fL (8.0-11.0); Monocytes % 10.3; Neutrophils % 50.9; Platelet Count 246 x1000/uL (130-400); RBC 4.24 m/cumm (4.00-5.20); White Blood Cell Count 8.66 k/cumm (4.4-10.8)
[2019-08-17 21:30] VITALS: BP 127/73; PULSE 70; RESP 16; O2SAT 98
--- NOTE | 2019-08-17 21:51 | ED.GENADUL_ITS ---
Discharge Plan Disposition Patient Disposition: AGAINST MEDICAL ADVICE Condition: Poor Discharge Details Chief Complaint: RespSymp Clinical Impression: Ovarian cyst, Acute respiratory infection, Ovary, torsion Primary Care Provider: Xavi Laurent ED Provider: Alma Stubbs Home Meds and New Rx's Prescriptions: New doxycycline hyclate 100 mg capsule 100 mg PO BID Qty: 20 RF: 0 albuterol sulfate [Proventil HFA] 90 mcg/actuation HFA aerosol inhaler 2 puff IH Q6H PRN (Reason: shortness of breath) Qty: 8.5 RF: 0 metronidazole [Metrogel Vaginal] 0.75 % gel 1 appful VG DAILY 5 Days RF: 0 No Action buprenorphine-naloxone [Suboxone] 2-0.5 mg film 2 film SL DAILY RF: 0 buprenorphine-naloxone [Suboxone] 8-2 mg film 1 film SL DAILY RF: 0 Flovent HFA 12 GM HFA aerosol inhaler 2 puff Inhalation BID Qty: 1 RF: 1 (DME) Aerochamber Mini 1 EACH spacer 1 ea Miscellaneous Q4H PRN Qty: 1 RF: 0 albuterol sulfate [ProAir HFA] 200 PUFF HFA aerosol inhaler 2 puff Inhalation Q4H PRN PRNQty: 1 RF: 0 gabapentin 400 mg Capsule 400 mg PO TID RF: 0 olanzapine 20 mg Tablet 25 mg PO DAILY RF: 0 fluoxetine 20 mg Tablet 20 mg PO DAILY RF: 0 Discharge Instructions Instructions: Ovarian Cyst (ED) Additional Instructions: Push fluids by mouth. Rest activities as tolerated. Use your medications as prescribed. Use inhaler as prescribed Follow-up promptly with your primary care doctor and with [facility] doctor as discussed. Return for ultrasound if desired. Return for any worsening or concerns immediately Medical Decision Making 19-year-old patient presents for multiple complaints. Patient initially complains of cough and congestion for the last 3 days for which she is concerned with a respiratory infection, friend with very similar pain she is been staying with recently. Patient reports nasal congestion, sore throat and coughing. Patient also has a complaint and concern of possible STD. Patient reports she would like to be tested for all STDs and have a pelvic exam. Patient reports she recently found out that her girlfriend was cheating on her. Patient reports she chronically has bacterial vaginosis. Patient is also complaining of lower abdominal pain which is worsening recently specifically on the right. Patient denies obvious vaginal bleeding. On exam patient has erythema in her throat, mild TM erythema and clear lungs on exam without obvious wheezing. Pelvic examination revealing malodorous discharge. Wet mount ultimately is positive for Gardnerella consistent with bacterial vaginosis. On exam patient also has cervical motion tenderness and lower abdominal pain with palpation overlying the ovary and the uterus. Patient insisting on CT evaluation given her abdominal pain which she is been experiencing. Patient advised pelvic ultrasound is more appropriate however she is insisting on CT. CT ultimately reveals a question of ovarian torsion versus hemorrhagic ovarian cyst. Discussed this with the patient who declines to stay for further imaging at this time. Patient reports her understanding of the possibility of losing an ovary if ovarian torsion is present, and unmanaged medical emergency. Patient advised of the importance of staying for pelvic ultrasound. Patient ultimately chooses to sign out AGAINST MEDICAL ADVICE and wants to leave right now. I had a discussion with the patient about my diagnostic/treatment plan. Patient declines plan and wishes to leave against medical advise. I reiterated my concerns to the patient and explained the risks of leaving prior to completion of workup and treatment. I specifically emphasized the possibility of life- threatening or lifestyle modifying disease that would no be appropriately treated if they leave. Patient verbalized understanding of my concerns and the potential for life threatening or lifestyle modifying disease. Patient has capacity to make informed decision. I again explained my concerns and urged the patient to stay for treatment as outlined. Patient continued to refuse. I then discussed potential less ideal alternatives to diagnostic/treatment plan as outlined and patiint refused. I recommended that the patient followup with primary care physician PAULINO or return to the Emergency Department at any timer for further treatment. I will treat this patient with azithromycin 1 g orally as well as doxycycline to provide pelvic coverage with close follow-up with her doctor. Pending gonorrhea and Chlamydia cultures. Doxycycline will concurrently cover her potential respiratory infection. Inhaler also provided. HPI General Date/Time Provider Initiated Documentation: 08/17/19 18:40 . HPI Narrative: Is a 19-year-old patient who presents with multiple complaints. She initially complains of cough, nasal congestion and sore throat. Patient reports she has been sick for the last 3 days. No measured fever chills. No nausea or vomiting. Patient does report mild chest soreness when breathing deeply. Patient is a smoker. Second complaint; patient is complaining of concern of STD. Patient is concerned and wants to be tested for all STDs and have a pelvic exam. Patient does report chronic bacterial vaginosis for which she is been treated several times without reprieve. Patient denies use of sexual toys. Patient in a sexual relationship with another female, and therefore has no concern of . Patient reports a new sexual partner in the last 10 months. Patient denies urinary urgency or frequency or dysuria. Patient is also complaining of pelvic pain for the last 3 months. Initially patient reports worse in the last few days but after multiple interviews she reports pain is been present in the right lower quadrant for approximately 3 months. Patient denies back pain. Denies nausea, vomiting or diarrhea. Related Data Home Medications Medication Instructions Recorded Confirmed Aerochamber Mini #1 inh.kit 06/03/15 11/15/18 Flovent HFA 2 puff INHALATION BID #1 inhaler 06/03/15 08/17/19 albuterol sulfate [ProAir HFA] 2 puff INHALATION Q4H PRN PRN #1 11/02/17 08/17/19 inh buprenorphine 2 mg-naloxone 0.5 mg 2 film SL DAILY 11/15/18 04/28/19 sublingual film buprenorphine 8 mg-naloxone 2 mg 1 film SL DAILY 11/15/18 04/29/19 sublingual film gabapentin 400 mg PO TID 04/28/19 08/17/19 albuterol sulfate [Proventil HFA] 2 puff IH Q6H PRN #8.5 gm 08/17/19 doxycycline hyclate 100 mg PO BID #20 cap 08/17/19 fluoxetine 20 mg PO DAILY 08/17/19 08/17/19 metronidazole [Metrogel Vaginal] 1 appful VG DAILY 5 Days gm 08/17/19 olanzapine 25 mg PO DAILY 08/17/19 08/17/19 Previous Rx's Medication Instructions Recorded albuterol sulfate [ProAir HFA] 2 puff INHALATION Q4H PRN PRN #1 11/02/17 inh albuterol sulfate [Proventil HFA] 2 puff IH Q6H PRN #8.5 gm 08/17/19 doxycycline hyclate 100 mg PO BID #20 cap 08/17/19 metronidazole [Metrogel Vaginal] 1 appful VG DAILY 5 Days gm 08/17/19 Allergies Allergy/AdvReac Type Severity Reaction Status Date / Time adhesive tape Allergy Intermediate Skin Rash/ Unverified 08/17/19 18:24 blisters latex AdvReac Unverified 08/17/19 18:24 General Stated Complaint: RespSymp MARIALUISA: 4 Review of Systems Review of Systems Narrative: CONSTITUTIONAL: The patient denies fevers, chills. EYES: Denies vision changes, blurry vision, or eye pain. ENT: Denies hearing changes, tinnitus, vertigo. Sore throat present, nasal congestion present CARDIAC: Mild chest pain, denies SOB. RESPIRATORY: Cough present. Denies difficulty breathing. GASTROINTESTINAL: Denies abdominal pain, changes in bowel, vomiting or nausea. GENITOURINARY: Denies dysuria, or frequency of urination. Vaginal discharge present Abdomen; abdominal pain present without nausea, vomiting or diarrhea. MUSCULOSKELETAL: Denies Joint pain, gait changes. NEUROLOGIC: Denies headaches, Denies focal weakness. Denies numbness. INTEGUMENT: Denies rashes. PSYCHIATRIC: Denies behavior changes. Denies anxiety or depression. ENDOCRINOLOGY: Denies fatigue. PSYCHIATRY: Denies depression, agitation or anxiety ROS Unobtainable: All systems reviewed & are unremarkable except as noted in HPI and below PFSH Medical History Acne ADHD (attention deficit hyperactivity disorder) Anxiety Asthma Depression Eczema Headache Hepatitis C carrier (Acute) RNA quant and LFTs done 10/11/18 Inguinal hernia Insomnia School problem UTI (urinary tract infection) Vision problem Surgical History section (03/14/18) [facility] [place] IUGR. PC/S for breech presentation. Not a candidate for ECV. Repair of inguinal hernia Repair of umbilical hernia (10/29/16) Tooth extraction Family History Mother Substance abuse Father Substance abuse [place] Substance abuse GRANDPARENT Substance abuse Essential hypertension Depression Heart disease Hyperlipidemia Neoplasm Asthma Social History Smoking/Tobacco Use Status: Current every day Tobacco Type: cigarettes Smoking packs per day: 1 Smoking cigarettes per day: 20.0 Quit status: considering quitting Counseling given: provider counseling Alcohol Intake: current Alcohol Intake frequency: a few times a month Drug use: Daily Substance use type: former substance user Date of last use: 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 Do you feel safe at home: Yes Do you feel safe in your relationship?: Yes Female Reproductive History Menstrual control method: none History History 2 Para 1 Hx # Term Pregnancies Multiple births Hx # Pregnancies Ectopic pregnancies AB induced Hx Number of Living Children AB spontaneous Exam Narrative Exam Narrative: CONST: Healthy appearing patient, in no acute distress. Well hydrated. Alert and alert. HENMT: Head nomocephalic, normal to inspection. Atraumatic. Hearing grossly normal. EYES: General normal appearance. Alignment normal. Eyelids normal. Conjunctiva normal. NECK: Normal visual inspection. FROM. Trachea midline. No Midline tenderness. CHEST: Normal insepection of the chest. RESP: Normal respiratory effort. Speaking full sentences. No cough. No audible wheezing. No retractions. CARDIO: No JVD. Abdomen; MUSCULOSKELETAL: Normal Gait. FROM of all extremities. SKIN: Normal. Dry. No rashes. NEURO: Alert and awake. Speech clear. PSYCH: Normal affect. Cooperative. External Female Exam: external appearance normal, normal appearance of the urethra and no lesions Speculum Exam - Vagina: normal appearance of the vagina and vaginal discharge abnormal (Malodorous discharge present) Speculum Exam - Cervix: normal appearance of the cervix and normal vervical discharge (Clear) Bimanual Exam- Vagina & Uterus: cervical motion tenderness Bimanual Exam- Adnexa, other: adnexal tenderness bilaterally Course Vital Signs Vital signs: Vital Signs Temperature 37.2 C 08/17/19 18:18 Pulse 99 H 08/17/19 18:18 Respiratory Rate 20 08/17/19 18:18 Blood Pressure 120/66 08/17/19 18:18 Pulse Oximetry 97 08/17/19 18:18 Temperature 37.2 C 08/17/19 18:18 Temperature Source Temporal Artery Scan 08/17/19 18:18 Pulse 70 08/17/19 21:30 Respiratory Rate 16 08/17/19 21:30 Respiratory Effort Non-Labored 08/17/19 18:49 Blood Pressure 127/73 08/17/19 21:30 Blood Pressure Position Sitting 08/17/19 18:18 Pulse Oximetry 98 08/17/19 21:30 Oxygen Delivery Method Room Air 08/17/19 18:18 Oxygen Flow Rate 0 08/17/19 18:18 Pain Level 9 08/17/19 18:18 Lab/Test Results Lab/Test Results: 08/17/19 19:04 Vaginal Vaginitis Screen - Final Laboratory Tests Range/Units 08/17/19 08/17/19 08/17/19 18:51 20:26 20:26 WBC (4.4-10.8) k/cumm 8.66 RBC (4.00-5.20) m/cumm 4.24 Hgb (12.0-15.5) g/dL 13.4 Hct (36.0-46.0) % 39.2 MCV (80-95) fL 92.5 MCH (27.0-33.0) pg 31.6 MCHC (32.0-36.0) g/dL 34.2 RDW (11.7-14.6) % 13.0 Plt Count (130-400) x1000/uL 246 MPV (8.0-11.0) fL 10.8 Immature Gran % 0.1 Neutrophils % 50.9 Lymphocytes % 34.3 Monocytes % 10.3 Eosinophils % 3.6 Basophils % 0.8 Absolute Neutrophils (1.2-6.7) k/cumm 4.41 Absolute Lymphocytes (1.2-3.4) k/cumm 2.97 Absolute Monocytes (0.11-0.7) k/cumm 0.89 H Absolute Eosinophils (0.0-0.7) k/cumm 0.31 Absolute Basophils (0.0-0.2) k/cumm 0.07 Sodium (136-145) mmol/L 141 Potassium (3.5-5.1) mmol/L 3.8 Chloride (98-107) mmol/L 107 Carbon Dioxide (21.0-32.0) mmol/L 27.7 Anion Gap (3-11) mmol/L 6.3 BUN (7-18) mg/dL 8 Creatinine (0.55-1.02) mg/dL 0.71 Estimated GFR/1.73 m2 (mL/min/1.73m2) >= 60.00 Glucose (70-100) mg/dL 79 Calcium (8.5-10.1) mg/dL 8.0 L Total Bilirubin (0.2-1.0) mg/dL 0.3 AST (15-37) U/L 12 L ALT (14-59) U/L 9 L Alkaline Phosphatase (46-116) U/L 50 Total Protein (6.4-8.2) g/dL 6.4 Albumin (3.4-5.0) g/dL 3.6 Urine Color (Yellow) Yellow Urine Clarity (Clear) Clear Urine pH (5-8) 6.5 Ur Specific [place] (1.005-1.025) 1.015 Urine Protein (Negative) mg/dL Negative Urine Ketones (Negative) mg/dL Negative Urine Blood (Negative) Negative Urine Nitrite (Negative) Negative Urine Bilirubin (Negative) Negative Urine Urobilinogen (Up TO 0.2) EU/dL 0.2 Ur Leukocyte Esterase (Negative) Trace H Urine RBC (0-2) Negative Urine WBC (0-5) HPF 10-20 Ur Epithelial Cells (Negative) HPF Many Urine Crystals (Negative) HPF Negative Urine Bacteria (Negative) HPF Negative Urine Casts (Negative) LPF Negative Urine Mucus (Negative) Negative Urine Other (Negative) Negative Ur Culture Indicated? No/sq. contamination Urine Glucose (Negative) mg/dL Negative POC- Test(urine) Negative
[2019-08-17] MEDS: Doxycycline Hyclate 100 MG CAP PO (21:56)
[2019-08-17] MEDS: Azithromycin 250 MG TAB 1000 MG PO (21:56)
[2019-08-20 14:24] LABS: Chlamydia Result Negative; GC Result Negative; Specimen Description Cervix
== END 2019-08-17 22:00 | disposition left against medical advice (07) ==
PROVIDERS: Emergency Provider Physician Assistant; PCP Family Medicine
DX: N83.201 Unspecified ovarian cyst, right side (principal); N83.511 Torsion of right ovary and ovarian pedicle; J06.9 Acute upper respiratory infection, unspecified; Z53.29 Procedure and treatment not carried out because of patient's decision for other reasons
CPT/HCPCS: 36415; 80053; 81025; 85652; 87491; 87591; 99285; 74177; 81003; 81015; 85025; 86140; 87480; 87510; 87660; 99284; J3490

== ENCOUNTER 2019-08-31 10:12 | Outpatient (CLI) | payer MEDICARE, MEDICAID, SELFPAY ==
--- NOTE | 2019-08-31 10:00 | DI.US_ITS ---
EXAM: US PELVIS TRANSVAGINAL CLINICAL HISTORY: hemorraghic cyst N83.209. TECHNIQUE: Ultrasound performed using standard protocol. COMPARISON: [facility] from 02/21/2018 FINDINGS: Pelvic ultrasound was performed transabdominally and transvaginally. Please see the accompanying gómez a sheet for measurements of pelvic structures. Uterus and ovaries are normal in appearance. No free fluid identified in the cul-de-sac. Limited scanning of the kidneys is unremarkable. IMPRESSION: Normal pelvic ultrasound.
== END 2019-08-31 10:32 ==
PROVIDERS: PCP Family Medicine; Visit Provider Obstetrics & Gynecology
DX: N83.201 Unspecified ovarian cyst, right side (principal); R10.2 Pelvic and perineal pain
CPT/HCPCS: 76830; 76856

== ENCOUNTER 2019-09-17 16:22 | Emergency (ER) | payer MEDICARE, MEDICAID, SELFPAY ==
[2019-09-17 16:25] VITALS: BP 125/84; PULSE 97; RESP 18; TEMP 36.7; O2SAT 97
--- NOTE | 2019-09-17 16:56 | ED.GENADUL_ITS ---
Discharge Plan Disposition Patient Disposition: OTHER Condition: Stable Discharge Details Chief Complaint: Abd Prob Clinical Impression: Abdominal pain, Left before treatment completed, Vaginal discharge Primary Care Provider: Xavi Laurent ED Provider: Ana Palencia Home Meds and New Rx's Prescriptions: No Action buprenorphine-naloxone [Suboxone] 2-0.5 mg film 2 film SL DAILY RF: 0 buprenorphine-naloxone [Suboxone] 8-2 mg film 1 film SL DAILY RF: 0 ceftriaxone 250 mg recon soln 250 mg IM ONCE Qty: 1 RF: 0 doxycycline monohydrate 100 mg capsule 100 mg PO DAILY Qty: 14 RF: 0 metronidazole [Flagyl] 500 mg tablet 500 mg PO BID Qty: 14 RF: 0 Flovent HFA 12 GM HFA aerosol inhaler 2 puff Inhalation BID Qty: 1 RF: 1 (DME) Aerochamber Mini 1 EACH spacer 1 ea Miscellaneous Q4H PRN Qty: 1 RF: 0 albuterol sulfate [ProAir HFA] 200 PUFF HFA aerosol inhaler 2 puff Inhalation Q4H PRN PRNQty: 1 RF: 0 gabapentin 400 mg capsule 300 mg PO BID RF: 0 fluoxetine 20 mg Tablet 20 mg PO DAILY RF: 0 albuterol sulfate [Proventil HFA] 90 mcg/actuation HFA aerosol inhaler 2 puff IH Q6H PRN (Reason: shortness of breath) Qty: 8.5 RF: 0 olanzapine 20 mg tablet 25 mg PO DAILY RF: 0 Discharge Data Discharge Date/Time-TO BE ENTERED AT DEPARTURE: 09/17/19 19:20 Medical Decision Making 19yo F w/ a h/o anxiety, depression, ADHD presents for abdominal pain and vaginal discharge for the past 2 weeks. She states she was seen by [facility] a few weeks ago and treated for pelvic infection. She states she had also had pelvic ultrasound and CT imaging around that time. On patient's initial arrival to ED, when attempting to obtain further information, she stated she needed to leave and could not wait here as she had something else to do. Prior to patient being brought back to room, she had lab work and urinalysis ordered, but she left the results waiting room and went outside to smoke and lab was unable to draw this blood work at that time causing a delay. She then complained why she was not being brought back. Upon my assessment in room, she states you need to be able to figure out what is wrong with me. Discussed with patient that further evaluation would include pelvic exam and cultures as she is still having vaginal discharge. She states just treat my pain, you do not need to do anymore fucking testing and you do not know what you are fucking doing . Patient became combative and verbally aggressive and slamming the ER room door. She stated you better come back right away and do the pelvic exam . Discussed with patient that we have other patients in the emergency department and I will come back to continue my exam as soon as possible and she stated yeah right, they're aren't other sick patients here. Patient then stormed out of the ER room and stated I am going to [facility] the [facility] . Medical Records Medical records reviewed: Yes I reviewed the patient's medical records. HPI General Mode of arrival: ambulatory . Date/Time Provider Initiated Documentation: 09/17/19 16:53 . Limitations to Documentation: no limitations . Information obtained by: patient . HPI Narrative: Patient is a 19-year-old female with a history of anxiety, depression, ADHD, asthma who presents for abdominal pain, vaginal discharge and foul-smelling urine. She states she had been seen by [facility] a few weeks ago diagnosed with a pelvic infection and treated with antibiotics. She states her symptoms never improved and she returns for reevaluation. She states she is sexually active with multiple partners and has not always use protection. Related Data Home Medications Medication Instructions Recorded Confirmed Aerochamber Mini #1 inh.kit 06/03/15 08/31/19 Flovent HFA 2 puff INHALATION BID #1 inhaler 06/03/15 09/17/19 albuterol sulfate [ProAir HFA] 2 puff INHALATION Q4H PRN PRN #1 11/02/17 09/17/19 inh buprenorphine 2 mg-naloxone 0.5 mg 2 film SL DAILY 11/15/18 08/31/19 sublingual film buprenorphine 8 mg-naloxone 2 mg 1 film SL DAILY 11/15/18 08/31/19 sublingual film albuterol sulfate [Proventil HFA] 2 puff IH Q6H PRN #8.5 gm 08/17/19 09/17/19 fluoxetine 20 mg PO DAILY 08/17/19 09/17/19 ceftriaxone 250 mg solution for 250 mg IM ONCE #1 each 08/31/19 08/31/19 injection doxycycline monohydrate 100 mg 100 mg PO DAILY #14 cap 08/31/19 08/31/19 capsule gabapentin 400 mg capsule 300 mg PO BID cap 08/31/19 09/17/19 metronidazole 500 mg tablet 500 mg PO BID #14 tab 08/31/19 08/31/19 olanzapine 20 mg tablet 25 mg PO DAILY 08/31/19 09/17/19 Previous Rx's Medication Instructions Recorded albuterol sulfate [ProAir HFA] 2 puff INHALATION Q4H PRN PRN #1 11/02/17 inh albuterol sulfate [Proventil HFA] 2 puff IH Q6H PRN #8.5 gm 08/17/19 ceftriaxone 250 mg solution for 250 mg IM ONCE #1 each 08/31/19 injection doxycycline monohydrate 100 mg 100 mg PO DAILY #14 cap 08/31/19 capsule metronidazole 500 mg tablet 500 mg PO BID #14 tab 08/31/19 Allergies Allergy/AdvReac Type Severity Reaction Status Date / Time adhesive tape Allergy Intermediate Skin Rash/ Unverified 08/31/19 11:27 blisters latex AdvReac Unverified 08/31/19 11:27 General Stated Complaint: Abd Prob MARIALUISA: 3 Review of Systems Review of Systems ROS Unobtainable: All systems reviewed & are unremarkable except as noted in HPI and below Constitutional Constitutional: Reports as per HPI, Denies chills and Denies fever(s) Eyes Eyes: Denies blurry vision ENT Ears, Nose, Mouth, and Throat: Denies dizziness, Denies sore throat and Denies throat swelling Cardiovascular Cardiovascular: Denies chest pain and Denies dyspnea Respiratory Respiratory: Denies cough and Denies dyspnea Gastrointestinal Gastrointestinal: Reports abdominal pain, Denies diarrhea and Denies vomiting Genitourinary Genitourinary: Denies hematuria, Denies dysuria and Reports vaginal discharge Musculoskeletal Musculoskeletal: Denies back pain and Denies numbness Integumentary/Breasts Skin/Breast: Denies lesions and Denies rash Neurologic Neurologic: Denies dizziness, Denies focal weakness and Denies numbness Allergic/Immunologic Allergic/Immunologic: Denies throat swelling [facility] Social History Smoking/Tobacco Use Status: Current every day Tobacco Type: cigarettes Smoking packs per day: 1 Smoking cigarettes per day: 20.0 Quit status: considering quitting Counseling given: provider counseling Alcohol Intake: current Alcohol Intake frequency: a few times a month Drug use: Daily Substance use type: former substance user Date of last use: 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 Do you feel safe at home: Yes Do you feel safe in your relationship?: Yes Female Reproductive History Menstrual control method: none History History 2 Para 1 Hx # Term Pregnancies Multiple births Hx # Pregnancies Ectopic pregnancies AB induced Hx Number of Living Children AB spontaneous Exam Const General: healthy appearing and other (irritable) HENMT Head: normal to inspection Mouth: oral mucosae normal Eyes General: appearance normal, both eyes and all related structures Neck Neck: normal visual inspection Resp Effort & Inspection: normal respiratory effort and able to speak in complete sentences Auscultation: clear to auscultation bilaterally Cardio Rate: regular rate Rhythm: regular rhythm GI Inspection: normal to inspection Palpation: soft, not firm, no guarding, not rigid and tender (diffuse mild) Auscultation: hypoactive bowel sounds Skin General skin exam: no rashes or lesions noted Neuro General: alert, awake and oriented x3 Motor: muscle tone normal throughout Extrem General: normal to inspection and full ROM Psych Appearance: grossly normal Affect: normal affect Course Vital Signs Vital signs: Vital Signs Temperature 98.1 F 09/17/19 16:25 Pulse 97 H 09/17/19 16:25 Respiratory Rate 18 09/17/19 16:25 Blood Pressure 125/84 09/17/19 16:25 Pulse Oximetry 97 09/17/19 16:25 Temperature 98.1 F 09/17/19 16:25 Temperature Source Temporal Artery Scan 09/17/19 16:25 Pulse 97 H 09/17/19 16:25 Respiratory Rate 18 09/17/19 16:25 Respiratory Effort Non-Labored 09/17/19 16:25 Blood Pressure 125/84 09/17/19 16:25 Blood Pressure Position Sitting 09/17/19 16:25 Pulse Oximetry 97 09/17/19 16:25 Oxygen Delivery Method Room Air 09/17/19 16:25 Oxygen Flow Rate 0 09/17/19 16:25 Pain Level 10 10/21/19 16:25
--- NOTE | 2019-09-17 16:59 | NUR.NOTE ---
Nursing Note: called pts name for placement into a room and pt was no longer in our waiting room. registration reports that pt left.
--- NOTE | 2019-09-17 17:15 | NUR.NOTE ---
Addendum entered by Paula Mejia 09/17/19 18:21: reported that pt has returned to the er waiting room. pt put back on the tracker. no rooms available at this time. Original Note: Nursing Note:
--- NOTE | 2019-09-17 17:40 | NUR.NOTE ---
Addendum entered by Paula Mejia 09/17/19 18:22: reported from another nurse that pt had left the facility again. Original Note: Nursing Note:
--- NOTE | 2019-09-17 18:18 | NUR.NOTE ---
Nursing Note: went out to inform pt that we would be rooming her soon and pt is very agitated and hostile with staff that she has had to wait this long. pt refused to allow the previous medical lab scientist to draw labs. pt yelling at this nurse and the medical lab scientist. educated pt on triage process at this facility. pt states if you think im going to wait here another fucking 6 hours im going to leave. informed pt that we would get her back as soon as we could but i she needed to leave and come back that we are not holding her here. pt agreed to allow lab draw her at this time.
[2019-09-17 18:31] LABS: Abs Immature Grans 0.02 k/cumm (0.0-0.09); Absolute Basophil Count 0.05 k/cumm (0.0-0.2); Absolute Eosinophil Count 0.26 k/cumm (0.0-0.7); Absolute Lymphocyte Count 2.26 k/cumm (1.2-3.4); Absolute Monocyte Count 0.75 k/cumm (0.11-0.7); Absolute Neutrophil Count 6.02 k/cumm (1.2-6.7); Basophils % 0.5; Eosinophils % 2.8; HCT 47.1 % (36.0-46.0); Immature Grans % 0.2; Lymphocytes % 24.1; Mean Corpuscular Hemoglobin 31.4 pg (27.0-33.0); Mean Corpuscular Volume 92.5 fL (80-95); Mean Platelet Volume 10.1 fL (8.0-11.0); Neutrophils % 64.4; Platelet Count 274 x1000/uL (130-400); RBC 5.09 m/cumm (4.00-5.20); RBC Distribution Width 13.2 % (11.7-14.6); White Blood Cell Count 9.36 k/cumm (4.4-10.8)
[2019-09-17 18:49] LABS: ALT 18 U/L (14-59); AST 23 U/L (15-37); Albumin 4.4 g/dL (3.4-5.0); Alkaline Phosphatase 62 U/L (46-116); Anion Gap 8.8 mmol/L (3-11); BUN 11 mg/dL (7-18); Bilirubin, Total 0.3 mg/dL (0.2-1.0); CO2 29.2 mmol/L (21.0-32.0); CREATININE 0.87 mg/dL (0.55-1.02); Calcium 8.7 mg/dL (8.5-10.1); Chloride 104 mmol/L (98-107); Glucose 85 mg/dL (70-100); Potassium 4.2 mmol/L (3.5-5.1); Sodium 142 mmol/L (136-145); Total Protein 7.9 g/dL (6.4-8.2)
--- NOTE | 2019-09-17 19:21 | NUR.NOTE ---
Nursing Note: This expert medical writer sitting in nurses station and heard swearing and slamming of doors coming from room 7 where this patient was housed. Pt came out of room into hallway asking for Discharge paperwork now or I'm just walking out. Pt was instructed to remain in her room until MD available to talk with her. Pt became increasingly agitated and loud, yelling swears in room and loud thrashing noises coming from room. Due to pts escalating behavior disrupting other patient safety security was called to department. Pt stated she wanted to leave and was escorted out of department by security.
== END 2019-09-17 19:20 | disposition other institution (70) ==
PROVIDERS: Emergency Provider Physician Assistant; PCP Family Medicine
DX: R10.9 Unspecified abdominal pain (principal); N89.8 Other specified noninflammatory disorders of vagina; Z53.29 Procedure and treatment not carried out because of patient's decision for other reasons
CPT/HCPCS: 36415; 80053; 81025; 99282; 81003; 85025

== ENCOUNTER 2019-11-29 10:36 | Emergency (ER) | payer MEDICARE, MEDICAID, SELFPAY ==
[2019-11-29 10:38] VITALS: BP 121/79; PULSE 90; RESP 18; TEMP 37.2; O2SAT 98
[2019-11-29 10:50] VITALS: RESP 5
[2019-11-29] MEDS: Albuterol/Ipratropium 3 ML UPD VIAL UPD (10:50)
--- NOTE | 2019-11-29 10:50 | W.ED.GENAD ---
Discharge Plan Disposition Patient Disposition: HOME Condition: Improving Discharge Details Chief Complaint: RespSymp Clinical Impression: Acute bronchitis with bronchospasm Primary Care Provider: Xavi Laurent ED Provider: Rodriguez Campuzano Home Meds and New Rx's Prescriptions: New prednisone 20 mg tablet 40 mg PO DAILY 5 Days Qty: 10 RF: 0 amoxicillin-pot clavulanate 875-125 mg tablet 1 tab PO BID 10 Days Qty: 20 RF: 0 Continued Flovent HFA 12 GM HFA aerosol inhaler 2 puff Inhalation BID Qty: 1 RF: 1 albuterol sulfate [ProAir HFA] 200 PUFF HFA aerosol inhaler 2 puff Inhalation Q4H PRN PRNQty: 1 RF: 0 gabapentin 400 mg capsule 300 mg PO BID RF: 0 olanzapine 20 mg tablet 25 mg PO DAILY RF: 0 No Action buprenorphine-naloxone [Suboxone] 2-0.5 mg film 2 film SL DAILY RF: 0 buprenorphine-naloxone [Suboxone] 8-2 mg film 1 film SL DAILY RF: 0 ceftriaxone 250 mg recon soln 250 mg IM ONCE Qty: 1 RF: 0 doxycycline monohydrate 100 mg capsule 100 mg PO DAILY Qty: 14 RF: 0 metronidazole [Flagyl] 500 mg tablet 500 mg PO BID Qty: 14 RF: 0 (DME) Aerochamber Mini 1 EACH spacer 1 ea Miscellaneous Q4H PRN Qty: 1 RF: 0 fluoxetine 20 mg Tablet 20 mg PO DAILY RF: 0 albuterol sulfate [Proventil HFA] 90 mcg/actuation HFA aerosol inhaler 2 puff IH Q6H PRN (Reason: shortness of breath) Qty: 8.5 RF: 0 Discharge Instructions Instructions: Acute Bronchitis (ED) Additional Instructions: Follow-up at [facility] for recheck in the next 7 to 10 days time. Call for an appointment. Take prednisone and antibiotic as prescribed. I recommend you take an [id number] probiotic or live culture yogurt once daily while on the antibiotic. May use provided inhaler 1 to 2 puffs every 4 hours if needed for wheezing. Return if you feel you need to use the inhaler more often. Maintain good hydration with small, frequent sips of fluids. Return for any acute concerns. Medical Decision Making 19-year-old female smoker presents with 7 to 10 days of cough, congestion, production of sputum, mild wheezing in the face of no current active inhaler. States she has plans to reestablish primary care and restart all of her medications. She is afebrile, well-appearing, with normal oxygenation. Her exam reveals bilateral end expiratory wheeze. Given DuoNeb updraft, referred for chest x-ray. Radiograph without acute findings. Patient improving following inhaled beta agonist. Consistent with bronchitis and bronchospasm. Will treat with a course of antibiotics, burst of steroid, use of albuterol if needed and she is provided an inhaler. She will continue her efforts to decrease smoking, and has plans to follow-up in clinic to have her prescriptions restarted. Stable for discharge to home at this time. HPI General Mode of arrival: ambulatory. Date/Time Provider Initiated Documentation: 11/29/19 10:37. Limitations to Documentation: no limitations. Information obtained by: patient. History of Present Illness 19 year old F presents to the emergency department with the chief complaint of Cough, congestion, production of sputum 10 days, described as moderate, and is localized to the chest. Patient reports no radiation. Patient started experiencing this day(s) and it has been constant. Patient notes cough, fever/chills, loss of appetite and other (Feels wheezy); denies nausea/vomiting. Patient did receive the following treatments prior to arrival, none Related Data Home Medications Medication Instructions Recorded Confirmed Aerochamber Mini #1 inh.kit 06/03/15 08/31/19 Flovent HFA 2 puff INHALATION BID #1 inhaler 06/03/15 09/17/19 albuterol sulfate [ProAir HFA] 2 puff INHALATION Q4H PRN PRN #1 11/02/17 09/17/19 inh buprenorphine 2 mg-naloxone 0.5 mg 2 film SL DAILY 11/15/18 08/31/19 sublingual film buprenorphine 8 mg-naloxone 2 mg 1 film SL DAILY 11/15/18 08/31/19 sublingual film albuterol sulfate [Proventil HFA] 2 puff IH Q6H PRN #8.5 gm 08/17/19 09/17/19 fluoxetine 20 mg PO DAILY 08/17/19 09/17/19 ceftriaxone 250 mg solution for 250 mg IM ONCE #1 each 08/31/19 08/31/19 injection doxycycline monohydrate 100 mg 100 mg PO DAILY #14 cap 08/31/19 08/31/19 capsule gabapentin 400 mg capsule 300 mg PO BID cap 08/31/19 09/17/19 metronidazole 500 mg tablet 500 mg PO BID #14 tab 08/31/19 08/31/19 olanzapine 20 mg tablet 25 mg PO DAILY 08/31/19 09/17/19 amoxicillin-pot clavulanate 1 tab PO BID 10 Days #20 tab 11/29/19 prednisone 40 mg PO DAILY 5 Days #10 tab 11/29/19 Previous Rx's Medication Instructions Recorded albuterol sulfate [ProAir HFA] 2 puff INHALATION Q4H PRN PRN #1 11/02/17 inh albuterol sulfate [Proventil HFA] 2 puff IH Q6H PRN #8.5 gm 08/17/19 ceftriaxone 250 mg solution for 250 mg IM ONCE #1 each 08/31/19 injection doxycycline monohydrate 100 mg 100 mg PO DAILY #14 cap 08/31/19 capsule metronidazole 500 mg tablet 500 mg PO BID #14 tab 08/31/19 amoxicillin-pot clavulanate 1 tab PO BID 10 Days #20 tab 11/29/19 prednisone 40 mg PO DAILY 5 Days #10 tab 11/29/19 Allergies Allergy/AdvReac Type Severity Reaction Status Date / Time adhesive tape Allergy Intermediate Skin Rash/ Unverified 11/29/19 10:43 blisters latex AdvReac Unverified 11/29/19 10:43 General Stated Complaint: RespSymp MARIALUISA: 3 Review of Systems Narrative: Ran out of medications, no current inhaler. Denies recent travel. 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 Pleasant, well groomed, interactive. HEAD: Normocephalic, atraumatic ENT: Mucous membranes moist, oropharynx mildly erythematous but no swelling or exudate seen, tympanic membranes clear bilaterally, External ear exam unremarkable EYES: PERRL, EOMI NECK: Full ROM, no ALEXEY, no menigismus CHEST/RESP: Nontender, diminished with bilateral end expiratory wheeze CARDIOVASCULAR: RRR, no murmur, rub jessica. 2+ Rad pulse bilateral ABDOMEN: Soft, nontender, no mass. +Bowel sounds EXT: Full ROM, no edema, no rash Neuro: Grossly normal neurologic exam, conversant, interactive. Psych: Speech fluent, thoughts congruent, affect normal Course Vital Signs Vital signs: Vital Signs Temperature 37.2 C 11/29/19 10:38 Pulse 90 11/29/19 10:38 Respiratory Rate 18 11/29/19 10:38 Blood Pressure 121/79 11/29/19 10:38 Pulse Oximetry 98 11/29/19 10:38 Temperature 37.2 C 11/29/19 10:38 Temperature Source Temporal Artery Scan 11/29/19 10:38 Pulse 90 11/29/19 10:38 Respiratory Rate 18 11/29/19 10:38 Respiratory Effort Non-Labored 11/29/19 10:41 Blood Pressure 121/79 11/29/19 10:38 Blood Pressure Position Sitting 11/29/19 10:38 Pulse Oximetry 98 11/29/19 10:38 Oxygen Delivery Method Room Air 11/29/19 10:38 Oxygen Flow Rate 0 11/29/19 10:38 Pain Level 9 11/29/19 10:38
[2019-11-29] MEDS: Albuterol HFA 8 GM 60 PUFF INH IH (10:56)
--- NOTE | 2019-11-29 11:10 | DI.RAD_ITS ---
EXAM: XR CHEST 2V PA LATERAL XR CHEST 2V PA LATERAL CLINICAL HISTORY: cough, wheeze cough, wheeze TECHNIQUE: 2D digital imaging was performed. COMPARISON: CHEST 2 VIEWS PA,LAT from 11/02/2017 FINDINGS: The heart is not enlarged. The lungs are clear and well expanded. No pleural effusion seen. Mediastin al contours appear intact. IMPRESSION: Normal chest
== END 2019-11-29 11:26 | disposition home or self-care (01) ==
PROVIDERS: Emergency Provider Emergency Medicine; PCP Family Medicine
DX: R05 Cough (principal); J02.9 Acute pharyngitis, unspecified; J20.9 Acute bronchitis, unspecified; F17.210 Nicotine dependence, cigarettes, uncomplicated
CPT/HCPCS: 94640; 99283; 71046; J7620

== ENCOUNTER 2020-02-13 16:33 | Emergency (ER) | payer MEDICARE, MEDICAID, SELFPAY ==
[2020-02-13 16:42] VITALS: BP 128/85; PULSE 16; RESP 16; TEMP 36.7; O2SAT 98
--- NOTE | 2020-02-13 16:45 | DI.CT_ITS ---
EXAM: CT HEAD WO CLINICAL HISTORY: Fall, possible LOC COMPARISON: HEAD AND CSPINE W/O CONTRAST from 05/21/2017 FINDINGS: Noncontrast cranial CT was performed. Ventricular system is normal in appearance. Question slight P EG type cerebellar tonsils, Chiari 1 malformation could be present. No evidence of acute intracrania l hemorrhage, mass. No calvarial fracture. Orbital and temporal bone structures appear intact. Paranasal sinuses and mastoid air cells appear clear as visualized. IMPRESSION: No evidence of acute intracranial process.
--- NOTE | 2020-02-13 16:49 | ED.GENADUL_ITS ---
Discharge Plan Disposition Patient Disposition: HOME Condition: Stable Discharge Details Chief Complaint: Orthopedic Clinical Impression: Ankle fracture, right, Closed head injury Primary Care Provider: Xavi Laurent ED Provider: Maddison Krueger Home Meds and New Rx's Prescriptions: New ondansetron HCl [Zofran] 4 mg tablet 4 mg PO Q8H PRN (Reason: nausea and vomiting) Qty: 10 RF: 0 hydrocodone-ibuprofen 5-200 mg tablet 1 tab PO Q6H PRN (Reason: pain) Qty: 7 RF: 0 Discharge Instructions Instructions: Ankle Fracture (ED), Head Injury (ED) Additional Instructions: Wear boot and be non weight bearing until follow-up with orthopedics. Rest ice compression and elevation. Take Tylenol 1 g up to 3 times a day for pain. Retu rn immediately to the ED for any worsening headache, confusion, persistent vomiting, blurry vision or any concerns. You are placed on a orthopedic callback list they will call you for follow-up appointment. If you do not hear from them in 24 hours call the Ortho doc water filtration technician Dr. Mcallister at [facility]. Stand Alone Forms: Work Release Referrals: Markus Mcallister MD [ [facility] - Medical Decision Making TECHNIQUE: Imaging protocol: XR Right ankle. Views: 3 or more views. COMPARISON: No relevant prior studies available. FINDINGS: Bones/joints: Possible small nondisplaced fracture along the anterior margin of the tibial plafond seen on lateral view only. Nonspecific cortical defect in the superior navicular bone appears remote in etiology. Widening of the ankle joint medial and superior clear space. Soft tissues: Normal. IMPRESSION: 1. Possible small nondisplaced fracture along the ventral margin of the tibial plafond. Recommend clinical correlation. 2. Widening of the ankle joint medial and superior clear space likely reflects underlying ligamentous injury. Thank you for allowing us to participate in the care of your patient. Dictated and Authenticated by: Danny De León MD 02/13/2020 5:33 PM Eastern Time ([place] & [place]) COMPARISON: CT HEAD AND CSPINE W/O CONTRAST 05/21/2017 8:08 AM FINDINGS: Brain: Punctate hyperdensities along the inferior margin of the left cerebellar hemisphere. Motion artifact somewhat limits evaluation of the posterior fossa. Ventricles: Normal. No ventriculomegaly. Bones/joints: Unremarkable. No acute fracture. Sinuses: Visualized sinuses are unremarkable. No fluid levels. Mastoid air cells: Visualized mastoid air cells are well aerated. Soft tissues: Unremarkable. IMPRESSION: 1. Punctate hyperdensities along the inferior margin of the left cerebellar hemisphere is favored to represent artifact, particularly given mild patient motion, though small volume subarachnoid hemorrhage cannot be definitively excluded. Recommend clinical correlation and consider follow-up CT if there is persistent concern for intracranial hemorrhage. 2. Somewhat low lying, peg like cerebellar tonsils is nonspecific but can be seen with type 1 Chiari malformation. Recommend clinical correlation. Thank you for allowing us to participate in the care of your patient. 1757: Call made to [facility] transfer center for possible transfer and consult with trauma. 1803: Spoke with Dr. Higginbotham with [facility] trauma, will call back after Head CT images are viewed by neuro surgery team. 1838: Ortho boot placed on right lower extremity, patient getting agitated with staff sonographer requesting to leave and requesting to eat. Hydrocodone Tylenol order placed. Patient encouraged to remain n.p.o. until I hear back from neurosurgery. 1844: Spoke with Dr. English with neurosurgery at [facility] who reports this is most likely artifact in nature and not a subarachnoid hemorrhage. Patient will be discharged home with strict return instructions and follow-up with orthopedics will encourage patient to return for any worsening headache intractable nausea vomiting or any concerns. Discussed plan of care with patient's mother at patient request, verbalizes understanding. At this time I feel it is safe for her to be discharged home with close observation by her mother and strict return instructions given, family and patient verbalized understanding. HPI General Mode of arrival: wheelchair . Date/Time Provider Initiated Documentation: 02/13/20 16:35 . Limitations to Documentation: no limitations . Information obtained by: patient . HPI Narrative: 19-year-old female presents right ankle pain after a trip and fall down approximately 15 stairs this morning. She states that she did hit her head, unknown LOC. Denies any midline C-spine or back pain. Negative chest or abdominal pain. Has FROM to hips and knees. Patient is alert and oriented x4 upon arrival. Did not take any medications prior to arrival. Related Data Home Medications Medication Instructions Recorded Confirmed hydrocodone-ibuprofen 1 tab PO Q6H PRN #7 tab 02/13/20 ondansetron HCl [Zofran] 4 mg PO Q8H PRN #10 tab 02/13/20 Previous Rx's Medication Instructions Recorded hydrocodone-ibuprofen 1 tab PO Q6H PRN #7 tab 02/13/20 ondansetron HCl [Zofran] 4 mg PO Q8H PRN #10 tab 02/13/20 Allergies Allergy/AdvReac Type Severity Reaction Status Date / Time adhesive tape Allergy Intermediate Skin Rash/ Unverified 02/13/20 16:53 blisters latex AdvReac Unverified 02/13/20 16:53 General MARIALUISA: 3 Review of Systems Narrative: Constitutional: Negative for weight loss, alert and oriented, well groomed, normal body habitus, appears comfortable. HEENT: Denies positive possible closed head injury positive headache, denies blurry vision, nasal discharge, sore throat, trouble swallowing. Chest: Denies chest pain, palpitations, irregular rhythm, hypertension. Respiratory: Denies Shortness of breath, cough, hemoptysis. GI: Denies abdominal pain, nausea, vomiting, diarrhea, constipation. : Denies dysuria, hematuria, flank pain, rectal bleeding. Extremities: Right ankle pain. Negative knee, or upper extremity pain. Neuro: Denies dizziness, blurry vision, weakness, syncope, headache or facial numbness. Hematologic: Denies easy bruising, intolerance to heat or cold, hair loss. [facility] Medical History Acne ADHD (attention deficit hyperactivity disorder) Anxiety Asthma Depression Eczema Headache Hepatitis C carrier (Acute) RNA quant and LFTs done 10/11/18 Inguinal hernia Insomnia School problem UTI (urinary tract infection) Vision problem Surgical History section (03/14/18) [facility] for IUGR. PC/S for breech presentation. Not a candidate for ECV. Repair of inguinal hernia Repair of umbilical hernia (10/29/16) Tooth extraction Family History Mother Substance abuse Father Substance abuse [place] Substance abuse GRANDPARENT Substance abuse Essential hypertension Depression Heart disease Hyperlipidemia Neoplasm Asthma Social History Smoking/Tobacco Use Status: Current every day Tobacco Type: cigarettes Smoking packs per day: 1 Smoking cigarettes per day: 20.0 Quit status: considering quitting Counseling given: provider counseling Alcohol Intake: current Alcohol Intake frequency: holidays/special occasions only Drug use: Daily Substance use type: former substance user Date of last use: 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 Appears stated age. Normal body habitus. Head: Normocephalic, no trauma. Eyes: Pupils PERRLA, Red reflex noted, EOM's intact. Eyelids symmetrical withour lesions, discharge, or swelling. ENT: Bilateral TM's WNL, External ear normal to inspection, no mastoid TTP, swelling, or erythema, Nasal turbinates WNL, no nasal discharge. Normal dentition, Posterior pharynx WNL, no exudate. Chest: RRR, Normal S1, S2, distal pulses intact. Resp: Lungs clear to auscultation bilaterally, no wheezes, rales, or rhonchi. Musculoskeletal: Patient non weight bearing without pain to right ankle. Has medial and lateral malleolus tenderness with palpation. No obvious deformity. Knees non tender to palpation. No midline C-spine pain, negative back pain. Skin: No suspicious rashes or lesions. Capillary refill less than 2 sec. Neurologic: Cranial nerves II-XII intact. Alert and oriented x 3. DTR's intact. Rapid alternating movements intact, no nystagmus. Hematologic/Lymphatic: No ecchymosis, no lymphadenopathy.
[2020-02-13] MEDS: Ibuprofen 600 MG TAB PO (17:09)
--- NOTE | 2020-02-13 17:25 | DI.RAD_ITS ---
EXAM: XR ANKLE RT COMPLETE CLINICAL HISTORY: Fall, pain COMPARISON: No exams were available for comparison FINDINGS: Three views were obtained. Ankle mortise appears widened suggesting ligamentous injury, acute versus chronic. 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 There is linear lucency projected in the anterior aspect of the distal tibia probably representing a nondisplaced acute fracture. No other acute fracture identified. IMPRESSION: Probable anterior tibial articular surface nondisplaced fracture.
--- NOTE | 2020-02-13 17:34 | DI.VRAD_ITS ---
PROCEDURE INFORMATION: Exam: XR Right Ankle Exam date and time: 02/13/2020 5:20 PM Age: 19 years old Clinical indication: Injury or trauma; Fall; Initial encounter; Blunt trauma; Injury date: 02/13/20; Injury details: Patient fell down stairs. Right ankle pain. TECHNIQUE: Imaging protocol: XR Right ankle. Views: 3 or more views. COMPARISON: No relevant prior studies available. FINDINGS: Bones/joints: Possible small nondisplaced fracture along the anterior margin of the tibial plafond seen on lateral view only. Nonspecific cortical defect in the superior navicular bone appears remote in etiology. Widening of the ankle joint medial and superior clear space. Soft tissues: Normal. IMPRESSION: 1. Possible small nondisplaced fracture along the ventral margin of the tibial plafond. Recommend clinical correlation. 2. Widening of the ankle joint medial and superior clear space likely reflects underlying ligamentous injury. Dictated and Authenticated by: Danny De León MD. Ordering:ADOLFO Washburn MD
--- NOTE | 2020-02-13 17:45 | DI.VRAD_ITS ---
PROCEDURE INFORMATION: Exam: CT Head Without Contrast Exam date and time: 02/13/2020 4:55 PM Age: 19 years old Clinical indication: Injury or trauma; Fall TECHNIQUE: Imaging protocol: Computed tomography of the head without contrast. COMPARISON: CT HEAD AND CSPINE W/O CONTRAST 05/21/2017 8:08 AM FINDINGS: Brain: Punctate hyperdensities along the inferior margin of the left cerebellar hemisphere. Motion artifact somewhat limits evaluation of the posterior fossa. Ventricles: Normal. No ventriculomegaly. Bones/joints: Unremarkable. No acute fracture. Sinuses: Visualized sinuses are unremarkable. No fluid levels. Mastoid air cells: Visualized mastoid air cells are well aerated. Soft tissues: Unremarkable. IMPRESSION: 1. Punctate hyperdensities along the inferior margin of the left cerebellar hemisphere is favored to represent artifact, particularly given mild patient motion, though small volume subarachnoid hemorrhage cannot be definitively excluded. Recommend clinical correlation and consider follow-up CT if there is persistent concern for intracranial hemorrhage. 2. Somewhat low lying, peg like cerebellar tonsils is nonspecific but can be seen with type 1 Chiari malformation. Recommend clinical correlation. Dictated and Authenticated by: Danny De León MD. Ordering:ADOLFO Washburn MD
[2020-02-13] MEDS: HYDROcodone 5/Acetaminophen 325 TAB PO (18:47)
[2020-02-13 19:18] VITALS: BP 132/74; PULSE 76; RESP 16; O2SAT 98
--- NOTE | 2020-02-14 15:42 | W.ED.FU ---
Patient called the ED stating that she went to 3 pharmacies to have her hydrocodone/ibuprofen 5/200 mg #7 prescription filled but they were all unable to as they do not carry this in stock. Patient is requesting a prescription for a different narcotic due to her ankle fracture. A prescription for hydrocodone/acetaminophen 5/325 mg # 7 was printed and made available for patient to case picker at the emergency department. Patient was asked to return the hydrocodone/ibuprofen prescription to the department for disposal.
== END 2020-02-13 19:19 | disposition home or self-care (01) ==
PROVIDERS: Emergency Provider Registered Nurse Emergency; PCP Family Medicine
DX: S82.891A Other fracture of right lower leg, initial encounter for closed fracture (principal); S09.8XXA Other specified injuries of head, initial encounter; W10.8XXA Fall (on) (from) other stairs and steps, initial encounter
CPT/HCPCS: 29505; 81025; 99284; 70450; 73610; E0114; L4361

== ENCOUNTER 2020-02-21 11:37 | Outpatient (CLI) | payer MEDICARE, MEDICAID, SELFPAY ==
--- NOTE | 2020-02-21 09:30 | DI.RAD_ITS ---
EXAM: XR ANKLE RT COMPLETE CLINICAL HISTORY: F/U FRACTURE. TECHNIQUE: 2D digital imaging was performed. COMPARISON: XR ANKLE RT COMPLETE from 02/13/2020 FINDINGS: BONES: The lucency seen in the anterior articular surface of the tibia is still present on the curren t examination. No other findings to suggest an acute fracture or dislocation are present. JOINTS: The ankle mortise is normally aligned. SOFT TISSUE: Normal. IMPRESSION: Stable distal tibial fracture. DATA REPOSITORY: RADIATION DOSE DELIVERED:
--- NOTE | 2020-02-21 10:00 | DI.RAD_ITS ---
EXAM: XR ANKLE RT 2V CLINICAL HISTORY: stress view R ankle. TECHNIQUE: 2D digital imaging was performed. COMPARISON: XR ANKLE RT COMPLETE from 02/21/2020 FINDINGS: Stress views of the right ankle were obtained. There does not appear to be widening of the ankle nishant nt compared to the prior examination. Soft tissues are unremarkable. There are findings suggesting an old osteochondritis dissecans of the talar dome. IMPRESSION: No acute abnormality. DATA REPOSITORY: RADIATION DOSE DELIVERED:
== END 2020-02-21 11:57 ==
PROVIDERS: PCP Family Medicine; Referring Provider Family Medicine; Visit Provider Student in an Organized Health Care Education/Training Program
DX: S82.391A Other fracture of lower end of right tibia, initial encounter for closed fracture (principal); M93.271 Osteochondritis dissecans, right ankle and joints of right foot; S99.811A Other specified injuries of right ankle, initial encounter; W10.9XXA Fall (on) (from) unspecified stairs and steps, initial encounter; W54.8XXA Other contact with dog, initial encounter
CPT/HCPCS: 99203; 99214; 73600; 73610

== ENCOUNTER 2020-04-17 08:02 | Emergency (ER) | payer MEDICARE, MEDICAID, SELFPAY ==
[2020-04-17 08:07] VITALS: BP 119/80; PULSE 96; RESP 14; TEMP 36.6; O2SAT 99
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
[2020-04-17] MEDS: Acetaminophen 500 MG TAB 1000 MG PO (08:52)
--- NOTE | 2020-04-17 08:52 | NUR.NOTE ---
Nursing Note: Provider ordered Cervical collar to protect C-spine prior to imaging. Pt refused to wear cervical collar. Pt informed of risks involved with refusal. Provider made aware.
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
[2020-04-17 11:08] VITALS: BP 106/65; PULSE 64; RESP 16; TEMP 36.6; O2SAT 95
== END 2020-04-17 10:13 | disposition home or self-care (01) ==
PROVIDERS: Emergency Provider Physician Assistant; PCP Family Medicine
DX: S09.90XA Unspecified injury of head, initial encounter (principal); S63.501A Unspecified sprain of right wrist, initial encounter; S80.212A Abrasion, left knee, initial encounter; M25.521 Pain in right elbow; M25.571 Pain in right ankle and joints of right foot; Y04.8XXA Assault by other bodily force, initial encounter
CPT/HCPCS: 29125; 29515; 99284; 70450; 72125; 73080; 73110; 99285; L0172; L3650; L3807; L4361

== ENCOUNTER 2022-04-02 19:13 | Outpatient (REF) | payer MEDICARE, MEDICAID, SELFPAY ==
[2022-04-02 20:40] LABS: Abs Immature Grans 0.03 10^3/uL (0.0-0.06); Absolute Basophil Count 0.06 10^3/uL (0.0-0.2); Absolute Eosinophil Count 0.09 10^3/uL (0.0-0.7); Absolute Lymphocyte Count 2.59 10^3/uL (1.2-3.4); Absolute Monocyte Count 0.57 10^3/uL (0.1-0.8); Absolute Neutrophil Count 7.69 10^3/uL (1.2-6.7); Basophils % 0.5; Eosinophils % 0.8; HCT 43.5 % (36.0-46.0); HGB 14.5 g/dL (11.2-15.7); Immature Grans % 0.3; Lymphocytes % 23.5; MCH 29.8 pg (27.0-33.0); MCHC 33.3 % (32.0-36.0); MCV 89 fL (80-95); MPV 10.9 fL (8.0-11.0); Monocytes % 5.2; Neutrophils % 69.7; Platelet Count 351 10^3/uL (130-400); RBC 4.87 10^6/uL (3.93-5.22); RDW 12.6 % (11.7-14.6); RDW-SD 41.9 fL; WBC 11.03 10^3/uL (4.4-10.8)
[2022-04-02 20:53] LABS: ALT 20 U/L (14-59); AST 10 U/L (15-37); Albumin 4.3 g/dL (3.4-5.0); Alkaline Phosphatase 64 U/L (46-116); Anion Gap 9.1 mmol/L (3-11); BUN 8 mg/dL (7-18); Bilirubin, Total 0.3 mg/dL (0.2-1.0); CO2 26.9 mmol/L (21.0-32.0); CREATININE 0.8 mg/dL (0.55-1.02); Calcium 8.7 mg/dL (8.5-10.1); Chloride 103 mmol/L (98-107); Glucose 82 mg/dL (74-106); Lipase 57 U/L (73-393); Potassium 4.4 mmol/L (3.5-5.1); Sodium 139 mmol/L (136-145); Total Protein 7.3 g/dL (6.4-8.2)
== END 2022-04-02 19:14 | disposition home or self-care (01) ==
LOC: LBN 19:13
PROVIDERS: PCP Family Medicine; Visit Provider Physician Assistant Medical
DX: R10.11 Right upper quadrant pain (principal)
CPT/HCPCS: 80053; 83690; 85025

== ENCOUNTER → 2022-04-16 00:56 | Outpatient (CLI) | payer MEDICARE, MEDICAID, SELFPAY ==
--- NOTE | 2022-04-16 | DI.US_ITS ---
Exam(s) US ABDOMEN LIMITED EXAM: US ABDOMEN LIMITED CLINICAL HISTORY: RT UPPER QUAD PAIN, R10.11, ACUTE ON CHRONIC TECHNIQUE: Ultrasound abdomen performed using standard protocol. COMPARISON: No exams were available for comparison FINDINGS: PANCREAS: Normal where visualized. LIVER: There is diffuse increased echogenicity of the liver. Hepatopedal flow in the Portal Vein. Th e liver measures in 19.3 cm length. GALLBLADDER:There is a non mobile gallstone present. It measures 1.1 cm. The gallbladder is contrac kelsi. No evidence of wall thickening. No pericholecystic fluid identified. BILIARY SYSTEM: Common bile duct measures < 7 mm. No intrahepatic biliary ductal dilation. DUGAN'S SIGN: Negative. RIGHT KIDNEY: Kidney is normal in size. No evidence of renal calculi. No evidence of hydronephrosis. No renal mass or cyst identified. ASCITES: None seen. IMPRESSION: 1. Hepatomegaly and hepatic steatosis. 2. Cholelithiasis. No biliary ductal dilatation. DATA REPOSITORY:
== END ==
PROVIDERS: PCP Family Medicine; Visit Provider Physician Assistant Medical
DX: R10.11 Right upper quadrant pain (principal); K80.20 Calculus of gallbladder without cholecystitis without obstruction; R16.0 Hepatomegaly, not elsewhere classified; K76.0 Fatty (change of) liver, not elsewhere classified
CPT/HCPCS: 76705

== ENCOUNTER → 2022-04-30 09:08 | Outpatient (BNVA) | payer MEDICARE, MEDICAID, SELFPAY | PROVIDERS: PCP Family Medicine; Referring Provider Physician Assistant Medical; Visit Provider Surgery | DX: K80.50 Calculus of bile duct without cholangitis or cholecystitis without obstruction (principal); F19.11 Other psychoactive substance abuse, in remission; B19.20 Unspecified viral hepatitis C without hepatic coma | CPT/HCPCS: 99203; 99214 ==

== ENCOUNTER 2022-05-03 03:26 | Outpatient (CLI) | payer MEDICARE, MEDICAID, SELFPAY ==
[2022-05-03 10:10] LABS: Source Nasal/Nares
[2022-05-03 15:36] LABS: COVID-19 PCR Negative (Negative)
== END 2022-05-03 03:27 | disposition home or self-care (01) ==
LOC: LBO 03:26
PROVIDERS: PCP Family Medicine; Visit Provider Surgery
DX: Z20.822 Contact with and (suspected) exposure to COVID-19 (principal); Z01.818 Encounter for other preprocedural examination
CPT/HCPCS: 87635; U0005

== ENCOUNTER 2022-05-04 06:06 | Day surgery (SDC) | payer MEDICARE, MEDICAID, SELFPAY ==
[2022-05-03 08:27] VITALS: BP 126/79; PULSE 72; RESP 20; TEMP 36.6; O2SAT 97
[2022-05-04] VITALS (10 sets, daily range): BP systolic 102–133; BP diastolic 47–86; PULSE 54–76; RESP 11–33; TEMP 36.3–36.6; O2SAT 94–100; BMI 35.5
--- NOTE | 2022-05-04 06:48 | ANES.PREOP_ITS ---
General Info Date of Service Date Performed: 05/04/22 Height: 5 ft 8 in Weight: 106 kg Body Mass Index (BMI): 35.5 Surgical Procedure: Operation Date: 05/04/22 07:40 Proposed Procedure Side Surgeon p Cholecystectomy Laparoscopic Christine Parra MD Meds Allergies and Home Medications Allergies Allergy/AdvReac Type Severity Reaction Status Date / Time adhesive tape Allergy Intermediate Skin Rash/ Unverified 05/04/22 06:44 blisters latex AdvReac Unverified 05/04/22 06:44 Home Medication Medication Instructions Recorded buprenorphine 2 mg-naloxone 0.5 mg 2 film buccal DAILY 04/29/22 sublingual film buprenorphine 8 mg-naloxone 2 mg 2 tab sublingual DAILY 04/29/22 sublingual tablet clonazepam 0.5 mg tablet 0.5 mg PO DAILY 04/29/22 gabapentin 600 mg tablet 600 mg PO DAILY 04/29/22 lamotrigine 25 mg tablet 25 mg PO ONCE 04/29/22 olanzapine 7.5 mg tablet 7.5 mg PO DAILY 04/29/22 triamcinolone acetonide 0.1 % 1 applic topical BID 04/29/22 topical cream methylphenidate HCl 20 mg tablet 60 mg PO DAILY 04/30/22 Current Visit Medications: Current Medications Generic Name Dose Route Start Last Admin Trade Name Freq PRN Reason Stop Dose Admin Acetaminophen 1,000 mg 05/04/22 06:00 Acetaminophen 500 Mg Tab PO 05/04/22 23:59 PREOP DYLAN Celecoxib 200 mg 05/04/22 06:00 Celecoxib 200 Mg Cap PO 05/04/22 23:59 PREOP DYLAN Ringer's Solution 1,000 mls @ 80 mls/hr 05/04/22 06:00 IV 05/27/22 23:59 INFUSION DYLAN Cefazolin Sodium/Dextrose 2 gm in 50 mls @ 100 mls/hr 05/04/22 06:00 Ancef Duplex IVPB 05/04/22 23:59 PREOP DYLAN IV Miscellaneous Supplies 1 each 05/04/22 06:00 Iv Access IV 05/27/22 23:59 DIRECTED DYLAN Sodium Chloride 0 ml 05/04/22 06:00 Normal Saline Flush 10 Ml Syr IV 05/27/22 23:59 PRN PRN Sodium Chloride 0 ml 05/04/22 06:00 Normal Saline 10 Ml Vial IJ 06/30/22 23:59 DIRECTED PRN Sterile Water 0 ml 05/04/22 06:00 Water,Injection,Sterile 10 Ml Vial IJ 05/27/22 23:59 DIRECTED PRN PFSH Active Problems Active Problems: Problem Status Onset Code Hepatitis C carrier B18.2 Depression 05/06/14 F32.9 Substance abuse 06/16/16 F19.10 Tobacco dependence 11/28/15 F17.200 Chronic mixed headache syndrome 09/13/13 G44.89 Hepatitis C virus infection 04/01/17 B19.20 History of section Z98.891 Ovarian cyst N83.209 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 Dysuria R30.0 Cholelithiasis K80.20 Biliary colic K80.50 Hx of substance abuse F19.11 Medical History Medical History Acne ADHD (attention deficit hyperactivity disorder) Anxiety Asthma Depression Depression (05/06/14) Dysuria (08/30/13) Eczema Encounter for insertion of intrauterine contraceptive device (06/07/14) Headache Hip pain (01/10/15) History of asthma (11/28/15) Hx of bipolar disorder Infertility (04/18/17) Inguinal hernia Insomnia Normal first in second trimester (12/13/17) School problem Substance abuse (06/16/16) Clean since 2017 UTI (urinary tract infection) Vision problem Medical History Comments:: Last cigarette was 05/03/22 Smoked marijuana 05/03/22 very anxious Surgical History Surgical History section (03/14/18) [facility] [place]. PC/S for breech presentation. Not a candidate for ECV. Repair of inguinal hernia Repair of umbilical hernia (10/29/16) Tooth extraction Tobacco Smoking/Tobacco Use Status: Current every day Tobacco Type: cigarettes Smoking packs per day: 1 Counseling given: provider counseling Alcohol Alcohol Intake: current Alcohol intake frequency: holidays/special occasions only Substance Use Substance use: Daily Substance use type: marijuana and prescription drug Counseling provided: treatment program and other Details: On Suboxone Taking oxycodone for gallbladder pain. Prental History History 2 Para 1 Hx # Term Pregnancies Multiple births Hx # Pregnancies Ectopic pregnancies AB induced Hx Number of Living Children AB spontaneous Vital Signs and Lab Results Vital Signs Most Recent Vital Signs in EMR: Most Recent Vital Signs Temp Pulse Resp BP Pulse Ox 36.6 C 72 20 126/79 97 05/03/22 08:27 05/03/22 08:27 05/03/22 08:27 05/03/22 08:27 05/03/22 08:27 Point of Care Results Point of Care Results: POC- Test(urine) Negative 05/04/22 06:44 Lab Results Blood Type / Crossmatch: No Data to Display Complete Blood Count: No Data to Display Complete Metabolic Panel: No Data to Display Liver Function Panel: No Data to Display Coagulation Panel: No Data to Display Cardiac Panel: No Data to Display Arterial Blood Gas: No Data to Display Venous Blood Gas: No Data to Display Pancreas Panel: No Data to Display Thyroid Panel: No Data to Display Infectious Disease: Coronavirus (COVID-19)(PCR) Negative (Negative) 05/03/22 09:54 Coronavirus 2019 Source Nasal/Nares 05/03/22 09:54 Blood Cultures: No Data to Display Toxicology Panel: No Data to Display Panel: No Data to Display Anesthesia Assessment and Plan Anesthesia History Personal History: No History of Anesthesia Complications Family History: No Family History of Anesthesia Complications Exercise Tolerance Exercise Tolerance: Metabolic Equivalents>4 Pertinent Negatives Pertinent Negatives: No Symptoms of GERD, No Major Cardiovascular Symptoms or Complaints, No Major Pulmonary Symptoms or Complaints and No History of CVA/TIA Cardiac & Pulmonary Exam Cardiac Exam: Normal S1/S2 Heart Sounds Pulmonary Exam: Clear Bilateral Breath Sounds Implantable Cardiac Device Does patient have a Pacemaker or an ICD?: No Airway Exam Known Difficult Airway: No Mallampati Class: 1 Mouth Opening: Normal (> 3cm) Thyromental Distance: Greater than 3 cm Neck Range of Motion: Full ROM Neck Circumference: Normal Teeth Condition: Normal Dentition Airway Comments: Missing 23 and a few molars ASA Classification ASA Score: ASA 2 Emergency Case?: No NPO Status NPO Status: NPO Clears >2 hours, Solids >8 hours Status Status: Negative HCG Anesthesia Plan Resuscitation Status: Full Code Anesthesia Technique: General Anesthesia Airway Planned: Endotracheal Tube Monitors Used: Standard Monitors
[2022-05-04] MEDS: Celecoxib 200 MG CAP PO (06:57)
[2022-05-04] MEDS: Acetaminophen 500 MG TAB 1000 MG PO (06:57)
--- NOTE | 2022-05-04 07:02 | ROE_ITS ---
Date of service: 05/04/22 Time of Service: 08:29 Operative Note Operative Note DATE OF PROCEDURE: 05/04/22 PRE-OP DIAGNOSIS: Biliary Colic POST-OP DIAGNOSIS: same PROCEDURE: Laparoscopic Cholecystectomy SURGEON: Christine Parra SPACE AND STORAGE CLERK: Duyen Solorzano ANESTHESIA TYPE: Local By Surgeon and General LMA/ETT Refer to Anesthesia Record PATHOLOGY: other (Gallbladder) COMPLICATIONS: None Patient was transported to: PACU Patient's condition: stable Indications: Ms Lewis is a 22-year-old female with a large stone in her gallbladder and right upper quadrant abdominal pain.? The pain is now constant in the upper abdomen.? She has had some nausea and vomiting and has lost 20 pounds.? We discussed the etiology of biliary colic and the treatment with laparoscopic cholecystectomy.? Reviewed the surgery, the complications and reasons to have to do an open procedure.? Reviewed the fact that she would be going home the same day unless there were any concerns at the time of surgery or afterwards.? We discussed pain control which might be difficult because of her history of substance abuse.? She tells me that she just had teeth surgery a few weeks ago and did well with 5 mg of oxycodone.? We discussed that I will give her a very small amount just to get her through the first couple of days and after that she should be on Tylenol and ibuprofen. Risks, benefits, complications were reviewed with the patient in the office.? Complications include but are not limited to bleeding, infection, injury to stomach, small bowel and large bowel, injury to the pancreas, injury to the common bile duct necessitating drainage and referral to tertiary center for repair, bile leak, adverse reactions to the medications, complications of intubation including a sore throat or injury to the uvula, PA, stroke and even .? Questions were entertained and answered to her satisfaction and she wished to proceed.? No guarantees were given or implied. Proceed with laparoscopic cholecystectomy Findings: Normal appearing Gallbladder Procedure Description: After informed consent was obtained the patient was brought to the operating room, placed in a supine position and monitors were applied. SCDs were applied to her lower extremities and she was placed under general anesthesia and intubated without difficulty. Her abdomen was then prepped and draped in a sterile fashion using ChloraPrep. At this point a timeout was done and the patient's name, date of , procedure type, allergies to medications, metal in her body, antibiotic and DVT prophylaxis, and fire risk was assessed. At this point 0.25% Bupivocaine was injected just above the umbilicus into the dermis and subcutaneous tissue. A 5 mm incision was made with an 11 blade. The skin next to the incision was grasped with penetrating towel clamps and while pulling up on the skin a 5 mm port was placed under direct visualization. The abdomen was insuflated and then 3 more ports were placed. A 12 mm port was placed in the subxiphoid area and two 5 mm ports were placed in the right upper quadrant. The liver was inspected and looked normal. The patient's bed was then turned to the left and her head was brought up. The gallbladder was grasped at the body and pushed towards the right shoulder, this allowed me to visualize the neck of the gallbladder. The neck was grasped and pulled towards the right flank and down allowing me to visualize the lymph node. Using a [place] dissector with cautery the lymph node was gently dissected away from the tissues and the fatty tissue was also dissected away. The cystic duct was identified it was normal in size. The duct was dissected 360 degrees using the [place] dissector in order for me to visualize its entrance into the gallbladder. Liver was noted behind it. There were no other structures right behind. Critical view was achieved. 3 clips were placed one proximal and 2 distal and the cystic duct was cut. The cystic artery was then identified and dissected 360 degrees. It was located just medial to the cystic duct. It was visualized going into the gallbladder. Once dissected 3 more clips were placed one proximal and 2 distal and the artery was cut. Using the hook dissector the gallbladder was then dissected away from the liver bed and placed into an Endo Catch bag and pulled through the 12 mm port site. The 12 mm port was placed back into the abdomen under direct visualization. The liver bed was inspected no bleeding was noted. Next the 12 mm and the 2 right upper quadrant ports were removed under direct visualization and no bleeding was noted from the fascia. The abdomen was deflated completely and lastly the umbilical port was removed. The skin was cleaned and the incisions were closed with 4-0 Vicryl. The skin was dried and skin affix was applied over the closed incisions. Needle, instrument and sponge counts were correct at the end of the case. At this point the patient was woken up, extubated and taken back to recovery in stable condition. There were no immediate complications.
--- NOTE | 2022-05-04 07:05 | W.PM.DSUDISC ---
Discharge Plan Disposition Patient Disposition: HOME Condition: Good Discharge Details Reason For Visit: Biliary colic Attending Provider: Christine Parra Primary Care Provider: Xavi Laurent Home Meds and New Rx's Prescriptions: New oxycodone 5 mg tablet See Rx Instructions .ROUTE .COMPLEX PRN3 Days Qty: 24 0RF Rx Instructions: 1-2 tab every 6 hours for breakthrough pain Continued buprenorphine-naloxone 2-0.5 mg film 2 film buccal DAILY Rx Instructions: place 1 strip/tab under (each) side of tongue triamcinolone acetonide 0.1 % cream 1 applic topical BID buprenorphine-naloxone 8-2 mg tablet, sublingual 2 tab sublingual DAILY olanzapine 7.5 mg tablet 7.5 mg PO DAILY lamotrigine 25 mg tablet 25 mg PO ONCE clonazepam 0.5 mg tablet 0.5 mg PO DAILY gabapentin 600 mg tablet 600 mg PO DAILY methylphenidate HCl 20 mg tablet 60 mg PO DAILY Discharge Instructions Instructions: Laparoscopic Cholecystectomy (DC) Additional Instructions: Activity at Home after surgery: 1. Make sure you walk outside at least 4 times per day 2. You should be able to climb a flight of stairs 3. No driving while in pain or taking pain medications 4. No strenuous activity or heavy lifting for 2 weeks (laparoscopic surgery) Diet, Nutrition, & wound healin. Avoid alcohol until after you are recovered from your surgery 2. Make sure to eat plenty of lean protein (meat, fish, eggs, cottage cheese, beans) 3. Eat a variety of fruits and vegetables. Eat plenty of high fiber foods to avoid constipation. 4. Drink plenty of liquids to stay hydrated and avoid constipation Pain Medications: 1. Tylenol 650mg every 6 hours as needed and Ibuprofen 600 mg every 6 hours as needed. You may alternate between the 2 medications every 3 hours 2. If a narcotic has been prescribed take as directed only for breakthrough pain For Constipation: 1. Take Milk of Magnesia or MiraLax as needed for constipation Other: 1. You may shower daily. Do not scrub the incisions 2. Do not soak the incisions for 1 week 3. You may alternate ice and heat as needed for pain and swelling Wound Care: 1. Keep the incisions clean and dry Please call our office if you develop: 1. Fevers >101.5 2. Nausea or Vomiting 3. Worsening pain 4. Redness and thick discharge from the wounds If after hours please call the Hospital at and ask to speak to the on-call surgeon* Stand Alone Forms: Anesthesia Discharge Inst., Brady Vazquez (DSU) Referrals: Christine Parra MD [ [facility] STAFF PHYSICIAN] - 05/21/22 10:30 am Activity:: Activity as Tolerated Remove Dressings/Wound Care:: Do Not Remove Shower/Bathe:: 24 hours Activity:: Activity as Tolerated Equipment/Supplies:: No Equipment Needed Diet:: low fat Discharge Orders Discharge Orders: Discharge Order (Routine); Ordered 05/04/22 Ordered By: Christine Parra
[2022-05-04] MEDS: Lactated Ringers 1,000 ML 80 ML IV (07:16)
[2022-05-04] MEDS: ceFAZolin 2 GM/50 ML BAG IVPB (07:29)
--- NOTE | 2022-05-04 08:05 | GB_PTH ---
PATIENT: Marlo Lewis LOC: [facility] U#:[id number] AGE/SX: 22/F ROOM: RE05/04/[address]: Christine Parra MD : 2000 BED: DIS: 05/04/2022 SPEC #: [id number] RECD: 05/04/22 12:33 STATUS: ZAFAR RE #: [id number] [place]ON: 05/04/22 08:[address]: Christine Parra DEPT: Surgical Specimen RECD BY: Lisa Troy ENTERED: 05/04/22 12:33 SP TYPE: GB OTHR DR: Xavi Laurent Tissues: 1 - GALLBLADDER Procedures: GROSS AND MICRO LEVEL 3 Comments: [id number]
[2022-05-04] MEDS: HYDROmorphone 2 MG/ML VIAL IVP ×2 (08:56→09:15)
--- NOTE | 2022-05-04 10:45 | W.ANESPOSTOP ---
Postoperative Evaluation Date, Time and Location Date Performed: 05/04/22 Time Performed: 10:22 Patient Location: Day Surgery Unit Vital Signs Most Recent Imported Vital Signs: Most Recent Vital Signs Temp Pulse Resp BP Pulse Ox 36.5 C 61 16 102/64 98 05/04/22 10:22 05/04/22 10:22 05/04/22 10:22 05/04/22 10:05/04/22 10:22 Pain Score Most Recent Pain Score: Most Recent Pain Score Pain Level 7 05/04/22 10:22 Assessment Mental Status: Awake (Alert & Oriented to Patient Baseline) Airway and Respiratory Function: Patent airway with normal (patient baseline) respiratory exam Cardiovascular Function: Hemodynamically Stable Hydration Status: Adequately Hydrated Nausea & Vomiting: No Nausea or Vomiting Pain: Pain is tolerable per patient Peripheral Nerve Block: Patient did not receive a nerve block Teaching Patient Teaching: Discussed Safe Use of Pain Medication Given Recent Anesthesia Postoperative Comments:: Patient post-operative discussion in presence of her mother. Discussed normal progression of groginess post-anesthesia and appropriate pain medicine utilization. Patient demonstrated understanding.
== END 2022-05-04 10:55 | disposition home or self-care (01) ==
PROVIDERS: PCP Family Medicine; Visit Provider Surgery
PROC: 0FT44ZZ Resection of Gallbladder, Percutaneous Endoscopic Approach (ICD-10-PCS; CPT 47562; principal; 2022-05-04 07:30)
DX: K80.20 Calculus of gallbladder without cholecystitis without obstruction (principal); F32.A Depression, unspecified; J45.909 Unspecified asthma, uncomplicated; G44.89 Other headache syndrome
CPT/HCPCS: 47562; 81025; 88304; J0690; J1100; J1885; J2250; J2405

== ENCOUNTER → 2022-05-25 11:02 | Outpatient (BNVA) | payer MEDICARE, MEDICAID, SELFPAY | PROVIDERS: PCP Family Medicine; Referring Provider Family Medicine; Visit Provider Surgery | DX: Z48.815 Encounter for surgical aftercare following surgery on the digestive system (principal); R12 Heartburn; Z90.49 Acquired absence of other specified parts of digestive tract ==

== ENCOUNTER 2022-06-24 11:33 | Emergency (ER) | payer MEDICARE, MEDICAID, SELFPAY ==
[2022-06-24 11:42] VITALS: BP 116/73; PULSE 89; RESP 18; TEMP 37.2; O2SAT 99
--- NOTE | 2022-06-24 11:45 | DI.RAD_ITS ---
Exam(s) XR ANKLE RT COMPLETE EXAM: XR ANKLE RT COMPLETE CLINICAL HISTORY: R ankle pain and swelling. TECHNIQUE: 2D digital imaging was performed of the right ankle. Three images were obtained. AP, la teral and oblique views were obtained. COMPARISON: CR XR ANKLE RT COMPLETE from 02/21/2020 FINDINGS: BONES: No acute fracture is present. No bony destructive lesion is seen. JOINTS: The ankle mortise is normally aligned. Mild degenerative changes are seen in the anterior ank le and the hindfoot. SOFT TISSUE: Normal. IMPRESSION: No acute fracture or dislocation. DATA REPOSITORY: RADIATION DOSE DELIVERED:
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
--- OUTSIDE RECORDS SUMMARY | 2022-06-24 11:46 | XMS_ITS | Encounter Summary ---
:2000 Author Organization [facility] Address [address] [place] [address] Care Team Providers Name Role Phone Michaela Saldaña MD Unavailable Alee Cruz MD Unavailable Murali Burton MD Unavailable Otoniel Coulter MD Unavailable Arnold Harrison MD Primary Care Provider Encounter Details Date Type Department Care Team Description 09/22/2021 Travel Social History Tobacco Use Types Packs/Day Years Used Date Current Every Day Smoker Cigarettes 0.25 1 Smokeless Tobacco: Never Used Comments: 5-10 cigarettes per day Alcohol Use Standard Drinks/Week Comments Yes 0 (1 standard drink = 0.6 oz [...] Assigned at Date Recorded Not on file COVID-19 Exposure Response Date Recorded In the last month, have you been in contact with No / Unsure 09/22/2021 11:24 EDT someone who was confirmed or suspected to have Coronavirus / COVID-19? documented as of this encounter Functional Status [...] making decisions? documented as of this encounter Plan of Treatment Upcoming Encounters Date Type Specialty Care Team Description 06/25/2022 Telemedicine Family Medicine Chandrika Harrison MD Arrived [address] [place], [place] [phone] (Wo rk) documented as of this encounter Visit Diagnoses Not on filedocumented in this encounter Care Teams Roll Carrier Relationship Specialty Start Date End Date Arnold Harrison MD PCP - General Family Medicine - Primary 04/30/21 [address] [place] [phone] Michaela Saldaña MD Obstetrics and Gynecology 04/08/21 [address] [facility], [address] [place] [address] Alee Cruz MD Child and Adolescent 04/08/21 Psychiatry Murali Burton MD Sports Medicine 04/08/21 Otoniel Coulter MD Ophthalmology 04/08/21 documented as of this encounter
--- OUTSIDE RECORDS SUMMARY | 2022-06-24 11:46 | XMS_ITS | Encounter Summary ---
:2000 Author Organization [facility] Address [address] [place] [address] Care Team Providers Name Role Phone Michaela Saldaña MD Unavailable Alee Cruz MD Unavailable Murali Burton MD Unavailable Otoniel Coulter MD Unavailable Arnold Harrison MD Primary Care Provider Reason for Visit Reason Onset Date Comments Appointment Related 11/18/2021 Encounter Details Date Type Department Care Team Description 11/18/2021 Telephone [facility] - Mercy Stanley, Appointment Related [facility] PA-C [address] [place], [place] [id number] [place] [phone] (Wo rk) Social History Tobacco Use Types Packs/Day Years [...] this encounter Miscellaneous Notes Telephone Encounter - Mercy Stanley PA-C - 11/18/2021 1518 EST If you have not heard back from/been able to reach the patient, I would wait until one of our officehears from her before making any decisions. Does that sound reasonable? Thanks for your attempts! elephone Encounter - Milady Jaramillo - 11/18/2021 1342 EST Tried calling pt 10/27/21, 11/11/21 and today, but I can not leave a message to set up appt. At this point Dr Gregory is the only one that does these injections, and isn't back in clinic until 01/21/22. Would Rohini prefer to refer to Xray? documented in this encounter Plan of Treatment Upcoming Encounters Date Type Specialty Care Team Description 06/25/2022 Telemedicine Family Medicine Chandrika Harrison MD Arrived [address] [place], [place] [phone] (Wo rk) documented as of this encounter Visit Diagnoses Not on filedocumented in this encounter Care Teams Av Specialist Relationship Specialty Start Date End Date Arnold Harrison MD PCP - General Family Medicine - Primary 04/30/21 [address] [place] [phone] Michaela Saldaña MD Obstetrics and Gynecology 04/08/[address] [place] [address], [address] [place] [address] Alee Cruz MD Child and Adolescent 04/08/21 Psychiatry Murali Burton MD Sports Medicine 04/08/21 Otoniel Coulter MD Ophthalmology 04/08/21 documented as of this encounter
--- OUTSIDE RECORDS SUMMARY | 2022-06-24 11:46 | XMS_ITS | Encounter Summary ---
:2000 Author Organization [facility] Address [address] [place] [address] Care Team Providers Name Role Phone Michaela Saldaña MD Unavailable Alee Cruz MD Unavailable Murali Burton MD Unavailable Otoniel Coulter MD Unavailable Arnold Harrison MD Primary Care Provider Reason for Visit Reason Onset Date Comments Other 09/23/2021 current supports? Encounter Details Date Type Department Care Team Description 09/23/2021 Telephone [facility] - [facility] Senior It ArchitectHoney (current [facility] [address] [address] Social History Tobacco Use Types Packs/Day Years [...] this encounter Miscellaneous Notes Telephone Encounter - Mishel Madrid - 09/23/2021 0928 EDT No response to my vm message from yesterday; I left a second message today , noting my call was prompted by Dr. Harrison, asking about Marlo's current supports, and ? need for additional help/information. Reviewed EMR: [facility] for [facility], [facility], [facility] Community Response Team, Marlo's mother, are in place. Marlo is currently living with her mother in [place], [place] ([facility]), but apparently looking to relocate to [facility]. Phone call placed to [facility] in [place], and spoke to Kayleigh Martin RN. [phone]. Marlo meets with Dr Shaikh at [facility] monthly. Marlo is working with [facility] counselor Gisselle Rosas [facility]; Marlo see Gisselle weekly for group counseling. Kayleigh Martin, RN notes that twice monthly urine testing 'have been great'/ Buprenorphine and Methylphenidate present in urine screens. Referral to [facility] created by Marlo the first week of Aug 2021--Marlo was requesting case management support from the [facility] Community Response Team/ [facility].Sol Valle is the contact threre: [phone]. Per Sol Valle, Housing applications for [facility] and [facility] have been submitted. [facility] was submitting a Family Unification application to support subsidized housing voucher. There's likely no [facility] housing available for at least a year. Infant is seeing [facility] financial project manager Dr. Nino.I referred to May 2021 CHT note from [facility] office. 3 month old infant Sridevi Bentley continues to keep all scheduled appts, and is developing normally. Marlo is receiving [facility] benefits from the [facility] office. Reach-up funding pending; Marlo willneed to complete application in [facility].--[facility] housing will not happen soon. Pediatric CHT note indicates Marlo was also involved with the [facility] housing support. Pediatric note indicates Marlo's mother helps with transportation; no other needs identified at last visit. ? If Marlo is working with the [facility] , Maternal Child Health Team; I'll pose the question if I get a return call from Marlo, or PCP can offer. documented in this encounter Plan of Treatment Upcoming Encounters Date Type Specialty Care Team Description 06/25/2022 Telemedicine Family Medicine Chandrika Harrison MD Arrived [address] [place], [place] [phone] (Wo rk) documented as of this encounter Visit Diagnoses Not on filedocumented in this encounter Care Teams Candy Dipper Hand Relationship Specialty Start Date End Date Arnold Harrison MD PCP - General Family Medicine - Primary 04/30/21 [address] [place] [phone] Michaela Saldaña MD Obstetrics and Gynecology 04/08/21 [address] [facility], [address] [place] [address] Alee Cruz MD Child and Adolescent 04/08/21 Psychiatry Murali Burton MD Sports Medicine 04/08/21 Otoniel Coulter MD Ophthalmology 04/08/21 documented as of this encounter
--- OUTSIDE RECORDS SUMMARY | 2022-06-24 11:46 | XMS_ITS | Encounter Summary ---
:2000 Author Organization [facility] Address [address] [place] [address] Care Team Providers Name Role Phone Michaela Saldaña MD Unavailable Alee Cruz MD Unavailable Murali Burton MD Unavailable Otoniel Coulter MD Unavailable Arnold Harrison MD Primary Care Provider Reason for Visit Reason Comments Other Encounter Details Date Type Department Care Team Description 07/23/2021 Refill [facility] [place] Bruce MD Other [facility] - [address] [place] [address] [place] [address] [place] [address] [phone] Social History Tobacco Use Types Packs/Day Years [...] making decisions? documented as of this encounter Ordered Prescriptions Prescription Sig Dispensed Refills Start Date End Date gabapentin (NEURONTIN) TAKE 1 CAPSULE BY 90 capsule 11 202008/13/2021 300 mg MOUTH THREE TIMES capsuleIndications: DAILY Sciatica, right side documented in this encounter Plan of Treatment Upcoming Encounters Date Type Specialty Care Team Description 06/25/2022 Telemedicine Family Medicine Chandrika Harrison MD Arrived [address] [place] [phone] (Wo rk) documented as of this encounter Visit Diagnoses Diagnosis Sciatica, right side - Primary documented in this encounter Discontinued Medications Medication Sig Discontinue Reason Start Date End Date gabapentin (NEURONTIN) Take 1 capsule by 06/25/2021 07/23/2021 300 mg mouth 3 times daily. capsuleIndications: Sciatica, right side documented as of this encounter Care Teams Valve And Regulator Repairer Relationship Specialty Start Date End Date Arnold Harrison MD PCP - General Family Medicine - Primary 04/30/[address] [place] [phone] Michaela Saldaña MD Obstetrics and Gynecology 04/08/21 [address] [facility] [address] [place] [address] Alee Cruz MD Child and Adolescent 04/08/21 Psychiatry Murali Burton MD Sports Medicine 04/08/21 Otoniel Coulter MD Ophthalmology 04/08/21 documented as of this encounter
--- OUTSIDE RECORDS SUMMARY | 2022-06-24 11:46 | XMS_ITS | Encounter Summary ---
:2000 Author Organization [facility] Address [address] [place] [address] Care Team Providers Name Role Phone Michaela Saldaña MD Unavailable Alee rCuz MD Unavailable Murali Burton MD Unavailable Otoniel Coulter MD Unavailable Arnold Harrison MD Primary Care Provider Reason for Referral PT/OT/ST (See Order Priority) - Specialty Report Received Specialty Diagnoses / Procedures Referred By Contact Refer red To Contact Rehab Therapies Diagnoses Carpal tunnel syndrome of right wrist Tenosynovitis, de Quervain Arnold Harrison, [facility] [address] [place] [phone] Referral ID Status Reason Start Expiration Visits Visits Date Date Requested Authorized [id number] Specialty Specialty 08/13/2021 1 1 Report Services Received Required Question Answer Reason for Request: right carpal tunnel and DeQu ervain's tenosynovitis onsult (See Order Priority) - Specialty Report Received Specialty Diagnoses / Procedures Referred By Contact Refer tana To Contact Orthopedic Surgery Diagnoses Sciatica, right side Arnold Harrison, [facility] [address], [address] [place] [phone] Referral ID Status Reason Start Expiration Visits Visits Date Date Requested Authorized [id number] Specialty Specialty 08/13/2021 1 1 Report Services Received Required Question Answer Reason for Request: right chronic hip pain and s ciatica Reason for Visit Reason Comments Follow-up mood, back/hip pain Arm Pain right, pain // tingling // n umbness Encounter Details Date Type Department Care Team Description 08/13/2021 Office Visit [facility] - Arnold Harrison rpal tunnel syndrome of right wrist (Primary Dx); [facility] Emma Jones MD Need for vaccination; Family Medicine - [address] [place] [address] Moderate episode of recurrent major depr essive disorder ([facility] [place], [place] History of opioid abuse ([facility]); [address] [phone] Sciatica, right side; [place] [address] Tenosynovitis, de Quervain Social History Tobacco Use Types Packs/Day Years [...] been in contact with No / Unsure 08/13/2021 8:50 EDT someone who was confirmed or suspected to have Coronavirus / COVID-19? documented as of this encounter Last Filed Vital Signs Vital Sign Reading Time Taken Comments Blood Pressure 100/64 08/13/2021 0901 EDT Pulse 68 08/13/2021 0901 EDT Temperature - - Respiratory Rate 16 08/13/2021 0901 EDT Oxygen Saturation - - Inhaled Oxygen Concentration - - Weight 100.1 kg (220 lb 9.6 oz) 08/13/2021 0901 EDT Height 172.7 cm (5' 8) 08/13/2021 0901 EDT Body Mass Index 33.54 08/13/2021 0901 EDT documented in this encounter Functional Status Functional Status Response [...] Refills Start Date End Date gabapentin (NEURONTIN) Take 2 Capsules by 180 capsule 11 07/2909/22/2021 300 mg mouth 3 times capsuleIndications: daily. Sciatica, right side documented in this encounter Progress Notes Arnold Harrison MD - 08/13/2021 0900 EDT [facility] Primary Care Subjective: Chief Complaint(s): Follow-up (mood, back/hip pain) and Arm Pain (right, pain // tingling // numbness) HPI: Marlo is doing pretty well with her . She is staying sober. Has been 3 months sober now. [facility]. She has urine drug screens once a week. They recently increased her suboxone to 18 mg daily. Sridevi Cornelius is her second daughter who is 2 months old. Her older sister is 3 years old. Her sister has custody of her older daughter. Today she is complaining of some pain in her wrist. In September she had a shoulder injury. A couple of months ago she noted some pain inher left wrist. The last couple of weeks her fingers get numb and her wrist gets achy. She got a brace a couple of weeks ago. She sometimes wears the brace at night but not always. She is not wearing it consistently. She has dropped things and lost strength. She is worried she will drop her baby. She is noting constant sciatic nerve pain. She wonders if she should increase her gabapentin. She had some injections in her hip in the past. She saw some specialists in [facility] and they told her that shehad damage to her sciatic nerve. Her right hip seems to pop in and out at times. She would rather take more gabapentin than have pain. She is afraid that the pain will drive her to seek opioids again. I have reviewed patient's tobacco history: reports that she has been smoking cigarettes. She has a 0.25 pack-year smoking history. She has never used smokeless tobacco. I have reviewed and updated pertinent problem list, PMHx,PSHx,SocHx, allergies, and medications today. Objective: Examination: Vitals: BP 100/64 Pulse 68 Resp 16 Ht 172.7 cm (68) Wt 100.1 kg (220 lb 9.6 oz) LMP 07/23/2021 (Exact Date) BMI 33.54 kg/m?? Body mass index is 33.54 kg/m??. Positive tinel's sign on the right, positive finklestein's, positive phalen's sign. Data reviewed with patient: I have reviewed the pertinent laboratory and diagnostic information in the chart with the patient and answered all questions today. Assessment & Plan: 1. Carpal tunnel syndrome of right wrist AMB CONS/FOLLOW UP HAND THERAPY 2. Need for vaccination HUMAN PAPILLOMAVIRUS (HPV9) VACCINE, 9-VALENT (GARDASIL- 9) IM PNEUMOCOCCAL POLYSACCHARIDE (PPSV23) VACCINE (PNEUMOVAX-23) 23-VALENT =>2YO SQ/IM 3. Moderate episode of recurrent major depressive disorder (HCC-CMS) 4. History of opioid abuse (HCC-CMS) 5. Sciatica, right side gabapentin (NEURONTIN) 300 mg capsule AMB CONS/FOLLOW UP ORTHOPEDICS 6. Tenosynovitis, de Quervain AMB CONS/FOLLOW UP HAND THERAPY Marlo Lewis is a pleasant 21 yrs old female with a history of opioid use disorder, sciatica, andCTS. 1. Reviewed treatment for this condition today. I think that texting and use of the phone are likelycontributing factors along with recent . Will start with night splinting and referral to OT, if not improving then could consider ortho referral for injection or surgical intervention. 2. Offered vaccines today. She declines covid vaccine. We had a nice conversation about risk and benefit today. All questions answered. 3. Stable, continue current treatment, follow up with psychiatry 4. Continue MAT at [facility]. We discussed that when she is stable we could transition her to MAT at our office here. 5. She wants to increase the dose of gabapentin. Reviewed risks of this medication today in some detail. Will increase to 600 mg tid. 6. Treatment as number 1 above. I spent a total of 44 minutes on the date of this encounter meeting with the patient and reviewing documentation/coordinating care as described in the above note. There are no Patient Instructions on file for this visit. Arnold Harrison MD TBCharla norwood MA - 08/13/2021 0900 EDT PRE-VISIT PLANNING- Advance Directive- None on file. COLST- None on file. Outside Information Reconciled?- Yes Controlled Medications- None Date of last CSA- N/A VMPS- N/A DUE FOR IN HM- Health Maintenance Due Topic Date Due ??? Pneumococcal Immunization (1 of 2 - PPSV23) Never done ??? HPV Vaccines (1 - 2-dose series) Never done ??? COVID-19 Vaccine (1) Never done ??? Chlamydia Screening Never done ??? Advance Directive Never done ??? Preventive Care Visit Never done ??? Cervical Cancer Screening Never done LABS/POCT/PROCEDURES DUE FOR (BY PROBLEM LIST)- Up to date. LAST ASSESSMENT & PLAN- 06/25/2021 1. Sciatica, right side gabapentin (NEURONTIN) 300 mg capsule 2. Moderate episode of recurrent major depressive disorder (HCC-CMS) ?? 3. Generalized anxiety disorder ?? 4. History of opioid abuse (HCC-CMS) ?? 5. Tobacco use disorder ? Marlo Lewis is a pleasant 21 yrs old female with a history of substance use disorder and depression who is a new mom. She has a long history of sciatica treated with gabapentin. ?? 1. Reviewed risks, potential side effects, and benefits of medication today. All questions answered.Reviewed risks with and breast feeding. Marlo would like to resume gabapentin today. Prescription sent. 2. Stable, continue current treatment, follow up with psychiatry 3. Stable, continue current treatment and follow up with psychiatry 4. [facility] 5. Continue tobacco cessation VISIT NOTES- Pharmacy verified. [id number] - [place], [place] - [address] [place] [address] AT [address] [facility] & [address] [phone] documented in this encounter Plan of Treatment Upcoming Encounters Date Type Specialty Care Team Description 06/25/2022 Telemedicine Family Medicine Chandrika Harrison MD Arrived [address], [place] [phone] (Wo rk) Scheduled Referrals Name Type Priority Associated Order Schedule Diagnoses AMB CONS/FOLLOW UP Outpatient Routine/Next Sciatica, right Expect ed: ORTHOPEDICS Referral Available side 08/20/2021 (Approximate), Expires: 08/13/2022 AMB CONS/FOLLOW UP Outpatient Routine/Next Carpal tunnel Expected : HAND THERAPY Referral Available syndrome of right 08/20/2021 wrist (Approximate), Tenosynovitis, de Expires: Quervain 08/13/2022 documented as of this encounter Visit Diagnoses Diagnosis Carpal tunnel syndrome of right wrist - Primary Carpal tunnel syndrome Need for vaccination Need for prophylactic vaccination and in oculation against unspecified single disease Moderate episode of recurrent major depr essive disorder (HCC) History of opioid abuse (HCC-CMS) (HCC) Opioid abuse, in remission Sciatica, right side Tenosynovitis, de Quervain Radial styloid tenosynovitis documented in this encounter Discontinued Medications Medication Sig Discontinue Reason Start Date End Date gabapentin (NEURONTIN) TAKE 1 CAPSULE BY Reorder 07/23/2021 08/13/2021 300 mg MOUTH THREE TIMES capsuleIndications: DAILY Sciatica, right side documented as of this encounter Historical Medications This list may reflect changes made after this encounter. Medication Sig Dispensed Refills Start Date End Date buprenorphine-naloxone Place 1 Tablet under 0 (SUBOXONE) 2-0.5 mg the tongue daily. tablet, sublingual added in this encounter Orders Immunization/Injection Count Last Ordered Date First O rdered Date HUMAN PAPILLOMAVIRUS (HPV9) VACCINE, 1 08/13/2021 9-VALENT (GARDASIL-9) IM PNEUMOCOCCAL POLYSACCHARIDE (PPSV23) 1 08/13/2021 VACCINE (PNEUMOVAX-23) 23-VALENT =>2YO SQ/IM documented in this encounter Care Teams Thrill Performer Relationship Specialty Start Date End Date Arnold Harrison MD PCP - General Family Medicine - Primary 04/30/[address] [place] [phone] Michaela Saldaña MD Obstetrics and Gynecology 04/08/21 [address] [facility], [address] [place] [address] Alee Cruz MD Child and Adolescent 04/08/21 Psychiatry Murali Burton MD Sports Medicine 04/08/21 Otoniel Coulter MD Ophthalmology 04/08/21 documented as of this encounter
--- OUTSIDE RECORDS SUMMARY | 2022-06-24 11:46 | XMS_ITS | Encounter Summary ---
:2000 Author Organization [facility] Address [address] [place] [address] Care Team Providers Name Role Phone Michaela Saladña MD Unavailable Alee Cruz MD Unavailable Murali Burton MD Unavailable Otoniel Coulter MD Unavailable Arnold Harrison MD Primary Care Provider Reason for Visit Reason Onset Date Comments Patient Information Update 09/17/2021 Encounter Details Date Type Department Care Team Description 09/17/2021 Telephone [facility] - Arnold Harrison tient Information [facility] MD Robert Update [address] [phone] (Wo rk) Social History Tobacco Use Types [...] this encounter Miscellaneous Notes Telephone Encounter - Charla Shankar MA - 09/22/[address] Harrison' previous note. Can you check in with this patient and see what supports they have in place for childcare and mental health? What community resources might be beneficial for them, what resources they are already utilizing, etc? Dr. Harrison wants to make sure they have all the support they need. It looks like a referral was done to [facility] in 12/2020, but let me know if you need a new one ordered. I'm happy to pend that if needed. Thank you! elephone Encounter - Charla Shankar MA - 09/21/2021 1034 EDT Contacted patient today. She explained that the baby is very attached to her and she thinks the babyneeds to learn how to self soothe. She believes that the best way for the child to do this is to be physically away from her for a significant period of time for the day which is why she is looking forthe baby to go to daycare. She also states that it is for her own mental health as well. She does have a psych provider named Janneth Sweet that works at the [facility] [employer]. I am unsure of what to put for the diagnosis. Please advise. elephone Encounter - Charla Shankar MA - 09/17/2021 1413 EDT Office received a childcare subsidy form for Dr. Harrison to fill out. It needs a diagnosis as to whyMarlo needs the childcare full-time. Dr. Harrison states it is likely a diagnosis better suited for her psychiatric prescriber to weigh in on. Reached out to Marlo unsuccessfully to let her know that we would need them to fill out the diagnosis part of the form. @ attempts have been made today but both times I got her voicemail. Voicemail have been left x2. documented in this encounter Plan of Treatment Upcoming Encounters Date Type Specialty Care Team Description 06/25/2022 Telemedicine Family Medicine Chandrika Harrison MD Arrived [address] [place] [phone] (Wo rk) documented as of this encounter Visit Diagnoses Not on filedocumented in this encounter Care Teams Treating Engineer Helper Relationship Specialty Start Date End Date Arnold Harrison MD PCP - General Family Medicine - Primary 04/30/[address] [place] [phone] Michaela Saldaña MD Obstetrics and Gynecology 04/08/21 [address] [facility], [address] [place] [address] Alee Cruz MD Child and Adolescent 04/08/21 Psychiatry Murali Burton MD Sports Medicine 04/08/21 Otoniel Coulter MD Ophthalmology 04/08/21 documented as of this encounter
--- OUTSIDE RECORDS SUMMARY | 2022-06-24 11:46 | XMS_ITS | Encounter Summary ---
:2000 Author Organization [facility] Address [address] [place] [address] Care Team Providers Name Role Phone Michaela Saldaña MD Unavailable Alee Cruz MD Unavailable Murali Burton MD Unavailable Otoniel Coulter MD Unavailable Arnold Harrison MD Primary Care Provider Encounter Details Date Type Department Care Team Description 08/13/2021 Travel Social History Tobacco Use Types Packs/Day [...] Family Medicine Chandrika Harrison MD Arrived [address] [place], [place] [phone] (Wo rk) documented as of this encounter Visit Diagnoses Not on filedocumented in this encounter Care Teams Repairing Calibrator Relationship Specialty Start Date End Date Arnold Harrison MD PCP - General Family Medicine - Primary 04/30/21 [address] [place] [phone] Michaela Saldaña MD Obstetrics and Gynecology 04/08/[address] [facility], [address] [place] [phone] Alee Cruz MD Child and Adolescent 04/08/21 Psychiatry Murali Burton MD Sports Medicine 04/08/21 Otoniel Coulter MD Ophthalmology 04/08/21 documented as of this encounter
--- OUTSIDE RECORDS SUMMARY | 2022-06-24 11:46 | XMS_ITS | Encounter Summary ---
:2000 Author Organization [facility] Address [address] [place] [address] Care Team Providers Name Role Phone Michaela Saldaña MD Unavailable Alee Cruz MD Unavailable Murali Burton MD Unavailable Otoniel Coulter MD Unavailable Arnold Harrison MD Primary Care Provider Reason for Referral Consult (See Order Priority) - Closed Specialty Diagnoses / Procedures Referred By Contact Refer red To Contact Pain Medicine Diagnoses Right hip pain [facility] [place] [address] [place], [place] [id number] [place] [phone] Referral ID Status Reason Start Date Expiration Date Visits V isits Requested Authorized [id number] Closed Specialty 09/22/2021 1 1 Services Required Question Answer Has the patient had diagnostic studies? Yes Diagnotic Studies: MRI/CT Have other specialty consultations been completed Yes for this pain compliant? Interventional Pain Clinic? ortho and ortho spine We provide consultative services. We do not Yes assume the role of prescribing physician for this therapy. Please help us understand your area of interest by selecting from the common topics below: Should opioids be initiated on this patient? No Should opioids be continued on this patient? No Reason for Request: right intra-articular hip in jection onsult (See Order Priority) - Authorization Not Required Specialty Diagnoses / Procedures Referred By Contact Refer tana To Contact Anesthesiology Diagnoses Right hip pain [facility] PA-C [address] [place] [phone] Referral ID Status Reason Start Expiration Visits Visits Date Date Requested Authorized [id number] Authorization Specialty 09/22/20 1 1 Not Required Services 21 Required Question Answer Reason for Request: right intra-articular hip in jection, diagnostic Reason for Visit Reason Comments Pain New Patient Visit Numbness Consult (See Order Priority) - Specialty Report Received Specialty Diagnoses / Procedures Referred By Contact Refer red To Contact Orthopedic Surgery Diagnoses Sciatica, right side Arnold Harrison, [facility] MD [address], [address] [place] [address] [place] [phone] Referral ID Status Reason Start Expiration Visits Visits Date Date Requested Authorized [id number] Specialty Specialty 08/13/2021 1 1 Report Services Received Required Encounter Details Date Type Department Care Team Description 09/22/2021 Office Visit [facility] ht hip pain (Primary Dx); [facility] [place] Dickson Right leg paresthesias Spine Medicine 130 [facility] [address] [facility], [place], [place] [address] [phone] [place], [place] [id number] Social History Tobacco Use Types Packs/Day Years [...] Sign Reading Time Taken Comments Blood Pressure 124/66 09/22/2021 1117 EDT Pulse 66 09/22/2021 1117 EDT Temperature 36.6 ??C (97.8 ??F) 09/22/2021 1117 EDT Respiratory Rate - - Oxygen Saturation 98% 09/22/2021 1117 EDT Inhaled Oxygen Concentration - - Weight 110.2 kg (242 lb 14.4 oz) 09/22/2021 1117 EDT Height 172.7 cm (5' 8) 09/22/2021 1117 EDT Body Mass Index 36.93 09/22/2021 1117 EDT documented in this encounter Functional Status [...] making decisions? documented as of this encounter Progress Notes [facility] PA-C - 09/22/2021 1115 EDT History of Present Illness: This is a 21-year-old female with history of opioid abuse, depression, anxiety, and tobacco use presenting upon referral from Dr. Arnold Harrison MD, for evaluation of right sided sciatica that had reportedly been going on for a number of years. She had reported to Dr. Harrison that the pain was fairly well controlled with use of gabapentin. Patient has a at home, and reported increased pain with increased physical demands on her, and wondered about increasing the gabapentin. Subsequently, patient was referred here for further evaluation and treatment. Reviewing past documentation, patient has been seen at [facility], where they did an MRI of her hip, and it was evidently unremarkable. Today, Bee complains of 100% right hip pain involving the anterior, lateral and posterior aspect of the hip. Symptoms originally started when she was 12 years old, and felt a pop when she stood and has since had these issues. She describes that she will move a certain way and her hip pops out of place, and when it pops back into place she gets numbness involving her entire right leg and can no longer bear weight on the leg. This can last for up to 3 to 4 days at which time it spontaneously resolves. No bowel or bladder dysfunction, saddle anesthesias or paresthesias. She has pain which is bearingweight on the right leg. During physical exam, it came out that the patient also has some right knee pain, and right ankle pain with no known injury. She was unable to dorsiflex her right ankle, and reports it is because the ankle hurts, and is swollen. She does not recall any specific injury, but states that it started a couple months ago. Patient is a current smoker quarter pack per day. History of opioid abuse, but has been clean for a few months, currently on Suboxone. She has a 3-year-old, and the at home. Conservative Treatment: Ibuprofen with minimal relief. Gabapentin with fair relief. Physical therapy in the distant past with 2 rounds of land therapy and 1 round of aqua therapy without relief. Review of Systems: As per HPI. I reviewed medications, allergies, medical, surgical and social history with the patient. Physical Examination: BP 124/66 Pulse 66 Temp 36.6 ??C (97.8 ??F) Ht 172.7 cm (68) Wt (!) 110.2 kg (242 lb 14.4 oz) SpO2 98% BMI 36.93 kg/m?? Well-developed, overweight female is pleasant, no acute distress at this time. HEENT without any gross abnormalities. Breathing is nonlabored Skin is warm and dry Patient maintains normal upright posture, but even in neutral position, does not appear to fully bear weight on the right leg. She ambulates avoiding weightbearing on the right leg. Unable to walk on her heels or toes secondary to aggravation of pain in her ankle as well as her hip. Range of motion of her low back is reasonable without significant pain aggravation. Patient is diffusely tender to palpation over the area of her right SI joint, low back, buttock, lateral hip, and even over the area of iliac crest. Bilateral lower extremities are 5 out of 5 in her hip, knee, flexion and extension. Her right dorsiflexion is limited range of motion secondary to pain, and she has significant giveaway weakness. She has 3+ out of 5 weakness in her EHL, but she endorses anterior ankle pain with this as well. Plantarflexion also mildly weak and again patient endorses pain with examination in her ankle. Left ankle is 5out of 5 in dorsiflexion, plantarflexion and EHL. Patient has mild decrease sensation to light touch along the lateral aspect of her leg, and lateral aspect of her foot on the right compared to left, which she reports is very chronic. Bilateral patellar and Achilles deep tendon reflexes are 1+ and equal. Negative straight leg raise on the left. Straight leg raise on the right elicits pain first in the hip, then in the knee and then in the ankle. Negative Danny sign on the left. Right side patient refuses to do as she knows that it will elicitsignificant left hip pain Image Review: No imaging to review Assessment: 1. Right hip pain 2. Right leg paresthesias This is a pleasant 21-year-old female presenting upon referral from Dr. Harrison for evaluation of her right hip pain. Clinically, it seems that the pain is stemming from her right hip as opposed to herlumbar spine. Incidentally, the patient also seems to have some pain of her right knee, and right ankle which are both tender to palpation. Denies any known trauma related to this. I discussed with the patient that reasonable options to consider would include physical therapy, again, referral to general orthopedics for evaluation of possible hip pathology, again, versus consideration of a right hip intra- articular injection, diagnostically to see if her pain seems to be coming from her hip. Patient was most on board with the latter option, so I placed a referral to the pain clinic for this. Would like to see the patient back 2 to 3 weeks after the injection to assess her response to this. Patient encouraged to call with any questions, concerns, or worsening of condition. I spent a total of 45 minutes on the date of this encounter meeting with the patient and reviewing documentation/coordinating care as described in the above note. Plan: 1. Right intra-articular hip injection 2. Follow-up 2 to 3 weeks after injection This document was produced using [employer] dictation. Please excuse any grammatical or verbal errors. CC: Arnold Harrison [address] [facility] [phone] documented in this encounter Plan of Treatment Upcoming Encounters Date Type Specialty Care Team Description 06/25/2022 Telemedicine Family Medicine Chandrika Harrison MD Arrived [address] [place] [phone] (Wo rk) Scheduled Referrals Name Type Priority Associated Order Schedule Diagnoses AMB CONS/FOLLOW UP Outpatient Routine/Next Right hip pain Expecte d: ANESTHESIOLOGY Referral Available 09/29/2021 (Approximate), Expires: 09/22/2022 AMB CONS/FOLLOW UP Outpatient Routine/Next Right hip pain Expecte d: PAIN INTERVENTIONAL Referral Available 09/29/20 21 (Approximate), Expires: 09/22/2022 documented as of this encounter Visit Diagnoses Diagnosis Right hip pain - Primary Pain in joint, pelvic region and thigh Right leg paresthesias Disturbance of skin sensation documented in this encounter Care Teams [employer] Relationship Specialty Start Date End Date Arnold Harrison MD PCP - General Family Medicine - Primary 04/30/21 [address] [place] [phone] Michaela Saldaña MD Obstetrics and Gynecology 04/08/21 130 [facility] [address] [place] [address] Alee Cruz MD Child and Adolescent 04/08/21 Psychiatry Murali Burton MD Sports Medicine 04/08/21 Otoniel Coulter MD Ophthalmology 04/08/21 documented as of this encounter
--- OUTSIDE RECORDS SUMMARY | 2022-06-24 11:46 | XMS_ITS | Encounter Summary ---
:2000 Author Organization [facility] Address [address] [place] [address] Care Team Providers Name Role Phone Michaela Saldaña MD Unavailable Alee Cruz MD Unavailable Murali Burton MD Unavailable Otoniel Coulter MD Unavailable Arnold Harrison MD Primary Care Provider Dunia Dejesus Unavailable Encounter Details Date Type Department Care Team Description 05/04/2022 Lab Requisition [facility] Eduar Parra for other Pathology & MD Zander general examination Laboratory Medicine [address] [place], [place] [address] [facility] [address] [place] [address] [phone] Social History Tobacco Use Types Packs/Day Years [...] Telemedicine Family Medicine Chandrika Harrison MD Arrived [address] [place] [phone] (Wo rk) documented as of this encounter Procedures Procedure Name Priority Date/Time Associated Diagnosis Comme nts SURGICAL PATHOLOGY Today 05/04/2022 8:05 EDT Encounter for o ther Results for this general examination procedur e are in the results section. documented in this encounter Results SURGICAL PATHOLOGY (05/04/2022 8:05 EDT) Note to Patient The following [facility] pathology results CENTER have been interpreted LABORATORY by your pathologist SERVICES and may be available to you before your health provider has had the opportunity to review them. Please allow time for your provider to receive these results and explore management options, if applicable. Final Diagnosis A. GALLBLADDER, CHOLECYSTECTOMY: KYLE Jones EDICAL - Gallbladder with no significant histopathologic abno alities. CENTER - Cholelithiasis LABORATORY SERVICES Attestation There was significant [facility] Electr onically resident/fellow CENTER signed by Fr mcallister, involvement in the LABORATORY Robert Fernandes on diagnostic evaluation SERVICES 022 at 1046 of this case. By the signature below, the attending physician certifies that they have personally conducted a gross and/or microscopic examination of the described specimens and rendered or confirmed the above diagnosis. Clinical History Biliary colic [facility] LABORATORY SERVICES Gross Description A. [facility] Received in formalin juan d with proper patient identification (initials C, M) and gallbladder is an intact gallbladder with an attached segment of cystic duct (9.5 x 2.8 x 2.8 cm). A cystic duct lymph node is not present. CENTER The serosa is smooth and martha k green. The mucosa is velvety, dark green and the wall is 0.1 cm in thickness. The cystic duct lumen is patent and measures 0.5 cm in diameter. The cystic duct margin is ink LABORATORY ed blue. A single granular, dark green calculus is present (1.0 x 0.8 x 0.8 cm). SERVICES Two sales representative rural power sections and the en face cystic duct margin are submitted in A1. BAR [place](ASCP) 05/05/2022 8:56 Resident/Fellow: Brooklyn Jaramillo MD [facility] LABORATORY SERVICES Performing Lab [facility] LABORATORY SERVICES Scanned Images [facility] LABORATORY SERVICES Specimen Tissue - Entire gallbladder (body struct ure) Performing Organization Address City/State/ZIP Code Phon e Number [facility] LABORATORY [address] [place] [address] SERVICES documented in this encounter Visit Diagnoses Diagnosis Encounter for other general examination documented in this encounter Care Teams Postal Inspector Relationship Specialty Start Date End Date Arnold Harrison MD PCP - General Family Medicine - Primary 04/30/[address] [place] [phone] Michaela Saldaña MD Obstetrics and Gynecology 04/08/21 [address] [facility], [address] [place] [address] Alee Cruz MD Child and Adolescent 04/08/21 Psychiatry Murali Burton MD Sports Medicine 04/08/21 Otoniel Coulter MD Ophthalmology 04/08/21 Dunia Dejesus Podiatrist Behavioral Care 02/18/22 [address] [facility] [address] [place] [address] documented as of this encounter
--- OUTSIDE RECORDS SUMMARY | 2022-06-24 11:46 | XMS_ITS | Clinical Summary ---
:2000 Author Organization [facility] Address [address] [place] [address] Care Team Providers Name Role Phone Michaela Saldaña MD Unavailable Alee Cruz MD Unavailable Murali Burton MD Unavailable Otoniel Coulter MD Unavailable Arnold Harrison MD Primary Care Provider Dunia Dejesus Unavailable Allergies Active Allergy Reactions Severity Noted Date Comments Adhesive Hives Medium 10/30/2020 Latex, Natural Rubber Hives Medium 10/13/2017 Medications Medication Sig Dispensed Refills Start Date End Date Status rizatriptan (MAXALT) Take 10 mg by 0 Active 10 mg tablet mouth once as needed for Migraine. May repeat in 2 hours if needed ipratropium/albuterol Inhale 2 Puffs as 0 Active sulfate directed every 6 (IPRATROPIUM-ALBUTEROL hours as needed. INHALATION) docusate sodium Take 1 Cap by 60 Cap 1 01/21/2021 Active (COLACE) 100 mg mouth 2 times capsuleIndications: daily. Constipation during in second trimester Additional Information Patient taking differently: 100 mg oral PRN, Reported on 03/06/2021 bisacodyL (DULCOLAX, Place 1 Suppository 5 Suppository 0 01/21 Active BISACODYL,) 10 mg rectally as needed suppositoryIndications: for up to 5 doses Constipation during for Constipation. in second trimester buprenorphine-naloxone Place 2 Tabs under 0 02/26/20 Active (SUBOXONE) 8-2 mg tablet, the tongue daily. sublingual methylphenidate HCl Take 1 Tab by mouth 0 04/01/2021 Active (RITALIN;METHYLIN) 20 mg 2 times daily. tablet acetaminophen (TYLENOL) 500 mg Take 500 mg by 0 Active tablet mouth every 6 hours as needed for Pain (headaches). VITAMIN PLUS LOW IRON Take 1 Tab by mouth 0 04/13/2021 Active 27 mg iron- 1 mg tablet tablet daily. triamcinolone (KENALOG) 0.1 % Apply to affected 45 g 1 Active creamIndications: Other eczema areas twice daily as needed traZODone (DESYREL) 150 mg Take 150 mg by 0 05/07/20 21 Active tablet mouth at bedtime. ibuprofen (MOTRIN) 600 mg TAKE 1 TABLET BY 0 021 Active tablet MOUTH EVERY 6 HOURS NEEDED CRAMPING. cloNIDine HCL (CATAPRES) 0.2 Take 0.2 mg by 0 2020 Active mg tablet mouth at bedtime. lamoTRIgine (LAMICTAL) 25 mg Take 1 Tablet by 0 /2 04/2021 Active tablet mouth daily. methylphenidate HCl Take 1 Tablet by 0 07/23/2021 Active (RITALIN;METHYLIN) 10 mg mouth 2 times tablet daily. With the 20 mg for a total of 30mg BID OLANZapine (ZYPREXA) 7.5 mg Take 7.5 mg by 0 021 Active tablet mouth every evening. buprenorphine-naloxone Place 1 Tablet 0 Active (SUBOXONE) 2-0.5 mg tablet, under the tongue sublingual daily. gabapentin (NEURONTIN) 600 mg Take 1 Tablet by 270 Tablet 3 Active tablet mouth 3 times daily. Active Problems Patient Care Coordination Note Formatting of this note might be differe nt from the original. 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 06/25/2021 Generalized anxiety disorder 06/25/2021 Tobacco use disorder 06/25/2021 Sciatica, right side 06/25/2021 Substance use disorder 05/22/2021 History of opioid abuse ([facility] 12/11/2020 Overview: Opioid Use Disorder Checklist [ x ] MAT provider and dose: Treatment A ssociates: 16 mg Suboxone [ x ] Baseline chronic Hep B panel, Hep C & CMP [ NA ] Baseline EKG if methadone > 100 m g/day & avoid Zofran if methadone (increases QT) [ x ] Referred to [facility] Team Third trimester: [ ] US for growth - 3rd trimester (use main checklist) [ ] Repeat labs third trimester: HIV, He p C, Hep B surface antigen, RPR, GC/CT [ ] Meet with [facility] re: & PP planning Lumbar radicular pain 05/14/2014 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 Senile macular retinal degeneration 09/06/2013 Overview: ICD10 Update Auto Replacement Headache 03/22/2013 Overview: ICD10 Update Auto Replacement Vision loss of right eye 03/22/2013 [place] of right macula 03/22/2013 Resolved Problems Problem Noted Date Resolved Date Previous delivery affecting 01/21/2021 06/25/2021 Overview: Per pt: for breech, done at [facility], done at 36 wks due to IUGR TOLAC/ Checklist [x ] NNEPQIN packet given [x ] success calculation: 74% [ x ] Records review: [ ] request sent [ x ] OP note confirms LTCS [ x ] OB consult at 32 weeks - still und ecided about location of delivery (wants ). Has not signed paperwork yet as of 04/16/2021 [ ] Consent signed Tobacco use affecting in second trimester, antepar priyank 12/11/2020 06/25/2021 Supervision of high-risk 12/11/202006/25 Overview: Dating: GIA 06/13/2021, by Ultrasound Issues: 1) Previous x1 - @ 36 weeks fo r IUGR - desires TOLAC 2) Hx of Hep C - undetectable viral load 02/2021, viral load undetectable at 37 wks 3) Hx of Opioid Abuse - using Suboxone f rom street 8 mg at intake, [place] [facility] program taking 16 mg daily 4) Tobacco Use 5) THC use daily 6) Depression, anxiety, bipolar, anger i ssues - psychiatric care with [facility], release on file 7) + Trichomonas - treated, HERBER neg, rpt at 30 wks and 36 wks all negative 8) Varicella non-immune 9) Will need pap in PP period 10) Social upheaval - partner back in [facility] as of - CHT involved with this client 11) DCF report done: not engaging in MAT and + cocaine in her urine at treatment center - need UDS at visits (+MJ and cocaine @31 wks) [ declines ] COVID 19 vaccine: [ declines ] Flu vaccine (Sep-March) [ x ] PreE risks reviewed: Does not meet criteria First Trim Labs Result Comments Blood Type A pos Ab Screen neg Hgb 11.4 Hct 34.6 Plts 246 HIV neg RPR neg Hep B Surf Ag neg Hep C POSITIVE Viral load undetectable Chlamydia/Gonorrhea neg Trich POSITIVE HERBER negative Varicella NON-IMMUNE Rubella immune Urine Cx wnl Last Pap Needs pap PP 1 hr GTT N/A Genetic Screen CF DNA testing Carrier Testing Obstetric US: Growth & Anatomy US: [ x ] [facility] [ ] [facility] Results: S = D, anterior placenta, matthias l [place], 3 VC, normal insertion, normal anatomy [ x ] 32 wk US growth (tobacco, MAT) - g rowth 35% (1855g), [place] 13.4, cephalic, ant placenta [ x ] 36 wk US growth (tobacco, MAT) - p relim report - [place] 12.8 - EFW 6# 9 ounces (preliminary report) 24 wk: [ x ] second packet given & teach ing done 28 Week Labs Result Comments 1 hr GTT 59 3 hr GTT NA Hgb 11.9 T&S/Rhogam NA Tdap X 30 wk: [x] third packet & teaching done 36 Week Labs Result Comments CBC WNL 12.1 / 35.2 / 264 GBS neg GC/CL/Trich neg HIV neg RPR neg Hep B surface antigen neg Hep C Viral Load undetectable [ x ] Hemorrhage risk assessed @ 36 wks: Medium, prior LTCS [ x ] Labor & preferences discusse d Pili Bent[place], pt's mother will be with her for L&D [ ] AMTSL discussed [ ] Peds plans and care - UNSURE at this time [ x ] states PP contraceptive plan not n eeded, same sex relationship. Revisit PP. Depression affecting in second trimester, antepart um 12/11/2020 06/25/2021 Anxiety disorder affecting , antepartum 12/11/2020 06/25/2021 Blepharitis 09/06/2013 03/13/2021 Overview: IMO Update Auto Replacement Encounters Date Type Specialty Care Team Description 05/11/2022 Telephone Family Medicine Arnold Harrison Patient Information MD Robert Update 05/04/2022 Lab Requisition Clinical Laboratory Filiberto Parra for other MD Zander general exa mination from Last 3 Months Immunizations Name Administration Dates Next Due Human Papillomavirus (HPV9) 9-Valent Vaccine 08/13/2021 (GARDASIL-9) IM Pneumococcal Polysaccharide (PPSV23) Vaccine 08/13/2021 (PNEUMOVAX-23) =>2YO SQ/IM Tdap Vaccine =>7YO IM 04/08/2021 Surgical History Surgery Date Site/Laterality Comments HERNIA REPAIR 11/28/1997 - 1998 Anginal he rnia CYST INCISION AND DRAINAGE Right right eye DILATION AND CURETTAGE OF UTERUS SECTION 03/14/2018 UMBILICAL HERNIA REPAIR 11/28/2015 - 11/27/2016 Medical History Medical History Date Comments Stye Right eye Stye left eye Lumbar radicular pain Anxiety Depression PTSD (post-traumatic stress disorder) History of hepatitis C Epilepsy (HCC) Migraines Pneumonia due to infectious organism Asthma Opioid use disorder Bipolar disorder, unspecified (HCC-CMS) (HCC) Adhd Substance use disorder 05/22/2021 Supervision of high-risk 12/11/2020 Datin g: GIA 06/13/2021, by Ultrasound Issues: 1) Previous x1 - @ 36 weeks for IUGR - desires TOLAC 2) Hx of Hep C - undetectable viral l oad 02/2021, viral load undetectable at 37 wks 3) Hx of Opioid Abuse - using Suboxone from street 8 mg at int[facility], [place] [facility] program taking 1 6 mg daily 4) Tobacco Use 5) THC u se daily 6) Depression, anxiety, bipolar, anger issues - psyc Depression affecting in 12/11/2020 second trimester, antepartum Anxiety disorder affecting , 12/11/2020 antepartum Previous delivery affecting 01/21/2021 Per pt: for breech, done at [facility], done at 36 wks due to IUGR TOLAC/ Checklist [x ] NNEPQIN packet given [x ] VB AC success calculation: 74% [ x ] Records review: [ ] request sent [x ] OP note confirms LTCS [ x ] OB consul t at 32 weeks - still undecided abou t location of delivery (wants ). Has not signed paperwork yet as of 04/16/2021 [ ] Consent signed Tobacco use affecting in 12/11/2020 second trimester, antepartum Family History Medical History Relation Name Comments No Known Daughter No Known Daughter No Known Daughter eartubes *Other(comment) Maternal Aunt some sort of blo od disorder Arthritis Maternal Grandfather Thyroid Disease Maternal Grandfather No Known Maternal Grandmother *Other(comment) Mother back and neck is sues with surgery Bipolar Disorder Mother Hypertension Mother Migraines Mother Cancer Paternal Grandmother uncertain o f type Migraines Sister No Known Sister ADHD Sister Defects Neg Hx Jessenia Disease Neg Hx Cystic Fibrosis Neg Hx Diabetes Neg Hx Down's Syndrome Neg Hx Familial Dysautonomia Neg Hx Glaucoma Neg Hx Heart Defect Neg Hx Stephanie's Chorea Neg Hx Intellectual Disability Neg Hx Keratoconus Neg Hx Macular Degeneration Neg Hx Muscular Dystrophy Neg Hx Neural Tube Defect Neg Hx Other Inherited Genetic or Neg Hx Chromosomal Disorder Retinal Detachment Neg Hx Retinitis Pigmentosa Neg Hx Sickle Cell Anemia Neg Hx Sickle Cell Trait Neg Hx Stroke Neg Hx Gigi-Sachs Neg Hx Thalassemia Neg Hx Relation Name Status Comments Brother Alive Daughter Alive Daughter Alive Daughter Alive Father Other dad's health unk nown Maternal Aunt Alive Maternal Grandfather Alive Maternal Grandmother Alive Mother Alive Other fmly history on moms jose alberto Alive Paternal Grandmother Sister Alive Sister Alive Sister Alive Sister Alive Social History Tobacco Use Types Packs/Day Years Used Date Current Every Day Smoker Cigarettes 0.25 1 Smokeless Tobacco: Never Used Tobacco Cessation: Ready to Quit: No; Co unseling Given: No Comments: 5-10 cigarettes per day Alcohol Use [...] Assigned at Date Recorded Not on file Obstetrics History Grav Para Term Pre Abrt (TAB) (SAB) (Ect) Mult Lvng Comments 2 2 1 1 2 Date Outcome GA Total Labor/2nd/3rd Weight Sex Delivery Anes PTL Sabrina A 1 A5 Name Clin Labor 03/14 36w 0h 02m 0h 02m 2090 g F CS-LTranv Spina N Salma 8 8 Ainsl Griselda /2017 1d (4 lb l ng ey cheri n 9.7 oz) Talita martinez MD Delivery Location: [facility] Comments: Emergency d/t IUGR 06/12/2021 Term 39w6d 3510 g (7 lb F Epidural N Living Carina Weinberg, 11.8 oz) C JEIMY & Michaela Saldaña MD Delivery Location: [facility] Comments: IOL at term. Pitocin IV, AROM. Vaginal and labial lacs repaired. Trailing membranes. Sweep and bedside mg nt with Dr. Michaela Saldaña using june pulido. Last Filed Vital Signs Vital Sign Reading Time Taken Comments Blood Pressure 124/66 09/22/2021 1117 EDT Pulse 66 09/22/2021 1117 EDT Temperature 36.6 ??C (97.8 ??F) 09/22/2021 1117 EDT Respiratory Rate 16 08/13/2021 0901 EDT Oxygen Saturation 98% 09/22/2021 1117 EDT Inhaled Oxygen Concentration - - Weight 110.2 kg (242 lb 14.4 oz) 09/22/2021 1117 EDT Height 172.7 cm (5' 8) 09/22/2021 1117 EDT Body Mass Index 36.93 09/22/2021 1117 EDT Plan of Treatment Upcoming Encounters Date Type Specialty Care Team Description 06/25/2022 Telemedicine Family Medicine Chandrika Harrison MD Arrived [address] [place] [phone] (Wo rk) Health Maintenance Due Date Last Done Comments Social Determinants Of Health (SDOH) 2000 COVID-19 Vaccine (#1) 1998 Chlamydia Screening 2014 Advance Directive 02/18/2016 Preventive Care Visit 02/18/2016 Cervical Cancer Screening 2019 HPV Vaccines (2 - 3-dose series) 09/10/2021 08/13/2021 Behavioral Health Screen 08/13/2022 08/13/2021, 08/13/2021, 05/21/2021 Pneumococcal Immunization (2 - PCV) 08/13/2022 08/13/2021 Influenza Immunization (Adult) (#1) 2022 Tetanus (Adult) Immunization 04/08/2031 04/08/2021 Pertussis (Adult) Immunization Completed 04/08/2021 HIV Screening Completed 05/23/2021, 03/06/2021 Hepatitis C Screen Completed 05/23/2021, 03/06/2021 Implants Implanted Type Area Director Clinical Data Device Identifier Shelf Exp iration Model / Date Serial / L ot Mr Cond To 3t Delores Iud Description: MR COND 1.5/3T DELORES IUD -Max Spatial gradient field of 36,000 Ga uss/cm (T/m) or less - Maximum whole body averaged specific a bsorption rate (SHABBIR) of 4W/kg in the First Level Controlled mode for 15 minutes of continuous scanning magresource Procedures Procedure Name Priority Date/Time Associated Diagnosis Comme nts SURGICAL PATHOLOGY Today 05/04/2022 8:05 EDT Encounter for o ther Results for this general examination procedur e are in the results section. from Last 3 Months Results SURGICAL PATHOLOGY (05/04/2022 8:05 EDT) Note to Patient The following [facility] pathology results CENTER have been interpreted LABORATORY by your pathologist SERVICES and may be available to you before your health provider has had the opportunity to review them. Please allow time for your provider to receive these results and explore management options, if applicable. Final Diagnosis A. GALLBLADDER, CHOLECYSTECTOMY: [facility] Robert CROUCH - Gallbladder with no significant histopathologic abno formerly [facility]. [place] - Cholelithiasis LABORATORY SERVICES Attestation There was significant [facility] MEDICAL Electr onically resident/fellow CENTER signed by Fr mcallister, involvement in the LABORATORY Robert Fernandes on diagnostic evaluation SERVICES 022 at 1046 of this case. By the signature below, the attending physician certifies that they have personally conducted a gross and/or microscopic examination of the described specimens and rendered or confirmed the above diagnosis. Clinical History Biliary colic [facility] Gross Description A. [facility] MEDICAL Received in formalin juan d with [...] x 0.8 x 0.8 cm). SERVICES Two retail field representative sections and the en face cystic duct margin are submitted in A1. BAR [place](ASCP) 05/05/2022 8:56 Resident/Fellow: Brooklyn Jaramillo MD [facility] Performing Lab [facility] Scanned Images [facility] Specimen Tissue - Entire gallbladder (body struct ure) Performing Organization Address City/State/ZIP Code Phon e Number [facility] [address] [place] [address] SERVICES from Last 3 Months Insurance Payer Benefit Plan / Subscriber ID Effective Phone Address T ype Group Dates MEDICARE MEDICARE A/B [id number] 2018-Prese [address] [place] [address] [id number] Effective for [address] [place] [address] Marlo Lewis Personal/Family Self 2000 [address] [place] [address] Marlo Lewis Personal/Family Self 2000 [address]) [place] [address] Advance Directives For more information, please contact: [phone] Documents on File Type Date Recorded 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 Automatic Explanati on Advance Directives and Living Will Power of Salesperson Meats Care Teams Internal Affairs Investigator Relationship Specialty Start Date End Date Arnold Harrison MD PCP - General Family Medicine - Primary 04/30/[address] [place] [phone] Michaela Saldaña MD Obstetrics and Gynecology 04/08/21 [address] [facility], [address] [place] [address] Alee Cruz MD Child and Adolescent 04/08/21 Psychiatry Murali Burton MD Sports Medicine 04/08/21 Otoniel Coulter MD Ophthalmology 04/08/21 Dunia Dejesus Cashier Office Behavioral Care 02/18/22 [address] [facility] [address] [place] [address]
--- OUTSIDE RECORDS SUMMARY | 2022-06-24 11:47 | XMS_ITS | Encounter Summary ---
:2000 Author Organization [facility] Address [address] [place] [address] Care Team Providers Name Role Phone Michaela Saldaña MD Unavailable Alee Cruz MD Unavailable Murali Burton MD Unavailable Otoniel Coulter MD Unavailable Arnold Harrison MD Primary Care Provider Reason for Visit Reason Comments Routine Visit Marlo reports no concerns t fredy. Encounter Details Date Type Department Care Team Description 05/29/2021 Routine [facility] - Jessenia Weinberg [place]: 37w6d [facility] NiaJR [address] [facility] [address] [place] [address] [address] [place] [address] (Wo rk) Social History Tobacco Use Types [...] been in contact with No / Unsure 05/07/2021 11:01 EDT someone who was confirmed or suspected to have Coronavirus / COVID-19? documented as of this encounter Last Filed Vital Signs Vital Sign Reading Time Taken Comments Blood Pressure 106/64 05/29/2021 1316 EDT Pulse - - Temperature - - Respiratory Rate - - Oxygen Saturation - - Inhaled Oxygen Concentration - - Weight 93.3 kg (205 lb 11.2 oz) 05/29/2021 1316 EDT Height 172.7 cm (5' 7.99) 05/29/2021 1316 EDT Body Mass Index 31.28 05/29/2021 1316 EDT documented in this encounter Functional Status [...] documented as of this encounter Progress Notes Lenard In[place]wood Nia, [facility] - 05/29/2021 1320 EDT Chief Complaint Patient presents with ??? Routine Visit Marlo reports no concerns today. S: Marlo Lewis is a 21 y.o. at 37w6d here today for a routine visit. Patient endorses good FM. Denies VB, LOF. Denies s/sxs of preE. Current Outpatient Medications: ??? acetaminophen (TYLENOL) 500 mg tablet, Take 500 mg by mouth every 6 hours as needed for Pain (headaches)., Disp: , Rfl: ??? bisacodyL (DULCOLAX, BISACODYL,) 10 mg suppository, Place 1 Suppository rectally as needed for up to 5 doses for Constipation., Disp: 5 Suppository, Rfl: 0 ??? buprenorphine-naloxone (SUBOXONE) 8-2 mg tablet, sublingual, Place 2 Tabs under the tongue daily., Disp: , Rfl: ??? cloNIDine HCL (CATAPRES) 0.2 mg tablet, Take 0.2 mg by mouth at bedtime. (Patient not taking: Reported on 05/29/2021), Disp: , Rfl: ??? docusate sodium (COLACE) 100 mg capsule, Take 1 Cap by mouth 2 times daily. (Patient taking differently: Take 100 mg by mouth as needed. ), Disp: 60 Cap, Rfl: 1 ??? gabapentin (NEURONTIN) 300 mg capsule, Take 1 capsule by mouth 3 times daily., Disp: 90 capsule,Rfl: 0 ??? ipratropium/albuterol sulfate (IPRATROPIUM-ALBUTEROL INHALATION), Inhale 2 Puffs as directed every 6 hours as needed., Disp: , Rfl: ??? methylphenidate HCl (RITALIN;METHYLIN) 20 mg tablet, Take 1 Tab by mouth 2 times daily. , Disp: , Rfl: ??? OLANZapine (ZYPREXA) 5 mg tablet, Take 5 mg by mouth daily., Disp: , Rfl: ??? VITAMIN PLUS LOW IRON 27 mg iron- 1 mg tablet tablet, Take 1 Tab by mouth daily., Disp:, Rfl: ??? promethazine (PHENERGAN) 25 mg tablet, Take 1 Tab by mouth 2 times daily. (Patient taking differently: Take 25 mg by mouth 2 times daily as needed. ), Disp: 60 Tab, Rfl: 1 ??? rizatriptan (MAXALT) 10 mg tablet, Take 10 mg by mouth once as needed for Migraine. May repeat in 2 hours if needed (Patient not taking: Reported on 05/23/2021), Disp: , Rfl: ??? traZODone (DESYREL) 150 mg tablet, Take 150 mg by mouth at bedtime. , Disp: , Rfl: ??? triamcinolone (KENALOG) 0.1 % cream, Apply to affected areas twice daily as needed, Disp: 45 g, Rfl: 1 O: Vitals: BP: 106/64 Height: 172.7 cm (67.99) Weight : 93.3 kg (205 lb 11.2 oz) BMI: 31.349 Albumin: Negative Glucose: Negative Fundal Height (cm): 38 cm Heart Rate: 140 Movement: Present Presentation: Vertex Dilation: 1 Effacement (%): 50 Station: -3 A: 21 y.o. at 37w6d IUP 1. Previous delivery affecting 2. History of opioid abuse ([facility]) DRUG SCREEN, PRESCRIPTION/OTC, URINE 3. Supervision of high risk , antepartum DRUG SCREEN, PRESCRIPTION/OTC, URINE 4. Depression affecting in second trimester, antepartum 5. Anxiety disorder affecting , antepartum 6. Tobacco use affecting in second trimester, antepartum P: Additional testing: UDS today Stopped Catapres Requested cervical exam Still living with mother - good support for her - mother will be at delivery Consented for weekly UDS until delivery Term precautions reviewed. Follow-up for AP visit in 1 week, sooner PRN. documented in this encounter Plan of Treatment Upcoming Encounters Date Type Specialty Care Team Description 06/25/2022 Telemedicine Family Medicine Chandrika Harrison MD Arrived [address] [phone] (Wo rk) Scheduled Orders Name Type Priority Associated Diagnoses Order S cheazarle DRUG SCREEN, Lab Routine History of opioid abuse Orde red: 05/29/2021 PRESCRIPTION/OTC, URINE ([facility] ) Supervision of high risk , antepartum documented as of this encounter Visit Diagnoses Diagnosis Supervision of high risk , ante - Primary Previous delivery affecting pre gnancy Previous delivery, unspecified as to episode of care or not applicable History of opioid abuse ([facility]) ([facility]) Opioid abuse, in remission Depression affecting in second trimester, antepartum Anxiety disorder affecting , an tepartum Tobacco use affecting in secon d trimester, antepartum documented in this encounter Care Teams International Marketing Coordinator Relationship Specialty Start Date End Date Arnold Harrison MD PCP - General Family Medicine - Primary 04/30/[address] [place] [phone] Michaela Saldaña MD Obstetrics and Gynecology 04/08/[address] [place] [address], [address] [place] [address] Alee Cruz MD Child and Adolescent 04/08/21 Psychiatry Murali Burton MD Sports Medicine 04/08/21 Otoniel Coulter MD Ophthalmology 04/08/21 documented as of this encounter
--- OUTSIDE RECORDS SUMMARY | 2022-06-24 11:47 | XMS_ITS | Encounter Summary ---
:2000 Author Organization [facility] Address [address] [place] [address] Care Team Providers Name Role Phone Michaela Saldaña MD Unavailable Alee Cruz MD Unavailable Murali Burton MD Unavailable Otoniel Coulter MD Unavailable Arnold Harrison MD Primary Care Provider Encounter Details Date Type Department Care Team Description 05/22/2021 Results Only [facility] - [facility] Jessenia Weinberg, [facility] [address] [place] [address] [address], [address] [place] [address] (Wo rk) Social History [...] Telemedicine Family Medicine Chandrika Harrison MD Arrived [address] [place] [phone] (Wo rk) documented as of this encounter Procedures Procedure Name Priority Date/Time Associated Diagnosis Comme nts GC/CHLAMYDIA/TRICHO Routine 05/22/2021 13:50 Resu lts for this [facility] EDT procedure a re in the results section. documented in this encounter Results GC/CHLAMYDIA/TRICHOMONAS PCR - [facility] (05/22/2021 13:50 EDT) CHLAMYDIA PCR - [facility] NOT DETECTED [facility] GONORRHEA PCR - [facility] NOT DETECTED [facility] SOURCE VAGINAL [facility] TRICHOMONAS NOT DETECTED [facility] VAGINALIS PCR Comment: [facility] Xpert TV assay performance has not been evaluated in women or in patients with a history of hysterectomy. Specimen Performing Organization Address City/State/ZIP Code Phon e Number [facility] [address] [place] [address] documented in this encounter Visit Diagnoses Not on filedocumented in this encounter Care Teams Freight Weigher Relationship Specialty Start Date End Date Arnold Harrison MD PCP - General Family Medicine - Primary 04/30/21 [address] [place] [phone] Michaela Saldaña MD Obstetrics and Gynecology 04/08/21 [address] [facility], [address] [place] [address] Alee Cruz MD Child and Adolescent 04/08/21 Psychiatry Murali Burton MD Sports Medicine 04/08/21 Otoniel Coulter MD Ophthalmology 04/08/21 documented as of this encounter
--- OUTSIDE RECORDS SUMMARY | 2022-06-24 11:47 | XMS_ITS | Encounter Summary ---
:2000 Author Organization [facility] Address [address] [place] [address] Care Team Providers Name Role Phone Michaela Saldaña MD Unavailable Alee Cruz MD Unavailable Murali Burton MD Unavailable Otoniel Coulter MD Unavailable Arnold Harrison MD Primary Care Provider Encounter Details Date Type Department Care Team Description 06/08/2021 Results Only [facility] - [facility] Lupe Mukherjee MD [facility] 130 [facility] 130 [facility] [address], [address] [place] [address] [place] [phone] (Wo rk) Social History Tobacco Use Types [...] been in contact with No / Unsure 06/08/2021 13:29 EDT someone who was confirmed or suspected [...] Telemedicine Family Medicine Chandrika Harrison MD Arrived [address] [place] [phone] (Wo rk) documented as of this encounter Procedures Procedure Name Priority Date/Time Associated Diagnosis Comme nts DRUGS OF ABUSE Routine 06/08/2021 13:30 Results f or this SCREEN, URINE - EDT procedure ar e in [facility] the results section. documented in this encounter Results (ABNORMAL) DRUGS OF ABUSE SCREEN, URINE - [facility] (06/08/2021 13:30 EDT) AMPHETAMINES NEG NEG [facility] BARBITURATES,UR - NEG NEG [facility] BENZODIAZEPINES NEG NEG [facility] COCAINE,URINE - [facility] NEG NEG [facility] MAMP NEG NEG [place] (METHAMPHETAMINES - [facility] MARIJUANA,URINE - POS (A) NEG [facility] MTD (METHADONE) - NEG NEG [facility] OPIATES,URINE - [facility] NEG NEG [facility] OXY (OXYCODONE) - NEG NEG [facility] PCP (PHENCYCLIDINE) NEG NEG [place] - [facility] PROPOXYPHENE (PPX) - NEG NEG [facility] TRICYCLIC NEG NEG [place] ANTIDEPRESSANTS - Comment: [facility] Drug Class ?Cutoff Concent ration CENTER LAB Amphetamines (AMP) ?500 ng /ml Barbiturates (BAR) ?200 ng /ml Benzodiazepines (BZO) ? 150 ng/m l Cocaine (IRAIDA) ? 150 ng/ml Methamphetamine (mAMP) ?500 ng/m l Methadone (MTD) ? 200 n g/ml Opiates (OPI) ? 100 ng/ml Oxycodone (OXY) ? 100 n g/ml Phencyclidine (PCP) ?25 ng /ml Tetrahydrocannabinol (THC) ? 50 ng/ml Propoxyphene (PPX) ?300 ng /ml Tricyclic antidepressants (TCA) ? 300 ng/ml This is a screening assay only, intended for use in cl inical monitoring or management of patients. False positive o r false negative results can occur. If confirmation test ing is needed, please call the lab. Specimens are retained in the laboratory for 7 days. Specimen Performing Organization Address City/State/ZIP Code Phon e Number [facility] [address] [place] [address] documented in this encounter Visit Diagnoses Not on filedocumented in this encounter Care Teams Hemstitcher Relationship Specialty Start Date End Date Arnold Harrison MD PCP - General Family Medicine - Primary 04/30/[address] [place] [phone] Michaela Saldaña MD Obstetrics and Gynecology 04/08/21 130 [facility], [address] [place] [address] Alee Cruz MD Child and Adolescent 04/08/21 Psychiatry Murali Burton MD Sports Medicine 04/08/21 Otoniel Coulter MD Ophthalmology 04/08/21 documented as of this encounter
--- OUTSIDE RECORDS SUMMARY | 2022-06-24 11:47 | XMS_ITS | Encounter Summary ---
:2000 Author Organization [facility] Address [address] [place] [address] Care Team Providers Name Role Phone Michaela Saldaña MD Unavailable Alee Cruz MD Unavailable Murali Burton MD Unavailable Otoniel Coulter MD Unavailable Arnold Harrison MD Primary Care Provider Encounter Details Date Type Department Care Team Description 06/03/2021 Orders Only [facility] - [facility] Cht Social Work er, [facility] [address] [place] [address] Social History Tobacco Use Types Packs/Day Years [...] been in contact with No / Unsure 06/03/2021 11:12 EDT someone who was confirmed or suspected [...] documented as of this encounter Progress Notes ShandaShanon - 06/03/2021 1332 EDT CHT met with pt, pt and [facility] were to meet up today and exchange baby items. Pt told [facility] sol the wrong time to meet and CHT was ari to coordinate to have Sol come up to hospital to drop offand be with pt for the appointment. Pt was happy to report she is sober and drug free for several weeks now! Pt states she is proud of herself and has had 2 UA's done that have come back clean. Pt states her family is coming together and she is the happiest she has ever been and so excited for the baby. Pt is thinking about doing the [place] study to help give the research more data about how to help [place] recovery moms. Pt is happy to help. documented in this encounter Plan of Treatment Upcoming Encounters Date Type Specialty Care Team Description 06/25/2022 Telemedicine Family Medicine Chandrika Harrison MD Arrived [address] [place], [place] [phone] (Wo rk) documented as of this encounter Visit Diagnoses Not on filedocumented in this encounter Care Teams Tie In Hand Relationship Specialty Start Date End Date Arnold Harrison MD PCP - General Family Medicine - Primary 04/30/21 [address] [place] [phone] Michaela Saldaña MD Obstetrics and Gynecology 04/08/[address] [place] [address], [address] [place] [address] Alee Cruz MD Child and Adolescent 04/08/21 Psychiatry Murali Burton MD Sports Medicine 04/08/21 Otoniel Coulter MD Ophthalmology 04/08/21 documented as of this encounter
--- OUTSIDE RECORDS SUMMARY | 2022-06-24 11:47 | XMS_ITS | Encounter Summary ---
:2000 Author Organization [facility] Address [address] [place] [address] Care Team Providers Name Role Phone Michaela Saldaña MD Unavailable Alee Cruz MD Unavailable Murali Burton MD Unavailable Otoniel Coulter MD Unavailable Arnold Harrison MD Primary Care Provider Encounter Details Date Type Department Care Team Description 06/12/2021 Results Only [facility] - [facility] Pau Martins MD [facility] 130 [facility] 130 [facility] [address], [address] [place] [address] [place] [phone] (Wo rk) Social History Tobacco [...] Telemedicine Family Medicine Chandrika Harrison MD Arrived [address] [place] [phone] (Wo rk) documented as of this encounter Procedures Procedure Name Priority Date/Time Associated Comments Diagnosis COMPLETE BLOOD COUNT Routine 06/12/2021 7:22 Resu lts for this WITH DIFFERENTIAL EDT procedure are in (AUTO) the results section. COVID-19 TESTING Routine 06/12/2021 7:15 Results for this EDT procedure are i n the results section. DRUGS OF ABUSE Routine 06/12/2021 7:00 Results fo r this SCREEN, URINE - [facility] EDT procedu re are in the results section. documented in this encounter Results (ABNORMAL) COMPLETE BLOOD COUNT WITH DIFFERENTIAL (AUTO) (06/12/2021 7:22 EDT) Pathologist Sig nature ABSOLUTE NEUTROPHIL 8.9 (H) 2.2 - 8.85 [facility] 10e3/uL CENTER LAB BASO # - [facility] 0.09 0.01 - 0.11 [facility] 10e/uL [facility] BASO % - [facility] 1 0 - 2 % [facility] EOS # - [facility] 0.34 0.03 - 0.61 [facility] 10e3/ul [facility] EOS % - [facility] 3 0 - 5 % [facility] GRAN % - [facility] 65.0 40 - 80 % [facility] HEMATOCRIT - [facility] 38.8 34.9 - 44.4 % [facility] HEMOGLOBIN - [facility] 13.2 11.6 - 15.2 [facility] g/dl [facility] IG# - [facility] 0.13 0 - 0.7 10e3/uL [facility] IG% - [facility] 1.0 (H) 0 - 0.9 % [facility] LYMPH # - [facility] 2.9 1.09 - 3.3 [facility] 10e3/ul [facility] LYMPH% - [facility] 21.2 20 - 40 % [facility] MEAN CORPUSCULAR HGB 32.4 26.7 - 33.3 pg [facility] ME D - [facility] CENTER LAB MEAN CORPUSCULAR HGB 34.0 32.1 - 35.9 [facility] CONC - [facility] g/dL [facility] MEAN CELL VOLUME - 95.1 81 - 98 fl [facility] CENTER LAB MONO # - [facility] 1.3 (H) 0.1 - 0.8 [facility] 10e3/uL [facility] MONO% - [facility] 9.6 0 - 12 % [facility] PLATELET COUNT 310 141 - 377 [facility] 10e3/ul [facility] RED BLOOD COUNT - 4.08 3.86 - 5.04 [facility] 10e6/ul CENTER LAB RED CELL DISTRI WIDTH 13.2 <14.7 % [facility] CENTER LAB WHITE BLOOD COUNT - 13.7 (H) 4.0 - 12.4 [facility] 10e3/ul CENTER LAB Specimen Performing Organization Address City/[facility] Phon e Number [facility] [address] [place] [address] COVID-19 TESTING (06/12/2021 7:15 EDT) COVID-19 rt-PCR Not Detected [facility] Result Comment: [facility] This assay is designed to detect the RNA of SARS-CoV-2 using nucleic acid amplification. ??A Not Detected result do es not preclude the possibility of SARS-CoV-2 infection since the adequacy of sample collection and/or low viral burden may result in the presence of viral nucleic acids below th e analytical sensitivity of this test method. ??Test res ults should not be used as the sole basis for treatment or other management decisions and must be used with other clini sb, epidemiological and laboratory data in making the diag nosis. This test has not been FDA cleared or approved. ??This test has been authorized by FDA under an EUA for use by authorized laboratories. ??This test has been authoriz ed only for detection of nucleic acid from 2019-nCoV, not for any other viruses or pathogens. ??This test is only author ized for the duration of the declaration that circumstances exist justifying the authorization of emergency use of in vi tro diagnostic tests for detection and / or diagnosis of 2019-nCoV under section 564(b) (1) of Act, 21 U.S.C 360bbb-3(b)(1) unless the authorization is terminated or revoked sooner. Performed on the [employer] GeneXpert Instrument at [facility] H [facility] Network [facility] [id number] Specimen Performing Organization Address City/Va Hospital/ZIP Code Phon e Number [facility] [address] [place] [address] (ABNORMAL) DRUGS OF ABUSE SCREEN, URINE - [facility] (06/12/2021 7:00 EDT) AMPHETAMINES NEG NEG [facility] BARBITURATES,UR - NEG NEG [facility] BENZODIAZEPINES NEG NEG [facility] COCAINE,URINE - [facility] NEG NEG [facility] MAMP NEG NEG [place] (METHAMPHETAMINES - [facility] CENTER LAB MARIJUANA,URINE - POS (A) NEG [facility] MTD (METHADONE) - NEG NEG [facility] OPIATES,URINE - [facility] NEG NEG [facility] OXY (OXYCODONE) - NEG NEG [facility] PCP (PHENCYCLIDINE) NEG NEG [facility] PROPOXYPHENE (PPX) - NEG NEG [facility] TRICYCLIC NEG NEG [place] ANTIDEPRESSANTS - Comment: [facility] Drug Class ?Cutoff Concent [facility] Amphetamines (AMP) ?500 ng /ml Barbiturates [...] Organization Address City/State/ZIP Code Phon e Number [facility] [address] [place] [address] documented in this encounter Visit Diagnoses Not on filedocumented in this encounter Care Teams Care Center Manager Relationship Specialty Start Date End Date Arnold Harrison MD PCP - General Family Medicine - Primary 04/30/[address] [place] [phone] Michaela Saldaña MD Obstetrics and Gynecology 04/08/21 [address] [facility], [address] [place] [address] Alee Cruz MD Child and Adolescent 04/08/21 Psychiatry Murali Burton MD Sports Medicine 04/08/21 Otoniel Coulter MD Ophthalmology 04/08/21 documented as of this encounter
--- OUTSIDE RECORDS SUMMARY | 2022-06-24 11:47 | XMS_ITS | Encounter Summary ---
:2000 Author Organization [facility] Address [address] [place] [address] Care Team Providers Name Role Phone Michaela Saldaña MD Unavailable Alee Cruz MD Unavailable Murali Burton MD Unavailable Otoniel Coulter MD Unavailable Arnold Harrison MD Primary Care Provider Reason for Visit Reason Onset Date Comments Coordination Of Care 05/11/2021 Encounter Details Date Type Department Care Team Description 05/11/2021 Telephone [facility] - Cht Director Of SafetyÁngela oordination Of Care [facility] Women [address] [place] [address] Social History Tobacco Use Types [...] this encounter Miscellaneous Notes Telephone Encounter - Kayleigh Martin RN - 05/25/2021 1541 EDT See previous TE for f/u communications w/ TA. elephone Encounter - Shanon Land - 05/11/2021 1322 EDT Treatment associates records state pt has not been engaging well. Pt has been asked to go to [facility] formore intense treatment plans. Pt is still able to engage with [employer]. Pt is now introduced to [facility] and [facility] plans to contact pt ounce more to help. [employer] will be engaged when pt reaches out. documented in this encounter Plan of Treatment Upcoming Encounters Date Type Specialty Care Team Description 06/25/2022 Telemedicine Family Medicine Chandrika Harrison MD Arrived [address] [place], [place] [phone] (Wo rk) documented as of this encounter Visit Diagnoses Not on filedocumented in this encounter Care Teams Human Resource Officer Relationship Specialty Start Date End Date Arnold Harrison MD PCP - General Family Medicine - Primary 04/30/21 [address] [place] [phone] Michaela Saldaña MD Obstetrics and Gynecology 04/08/[address] [place] [address], [address] [place] [address] Alee Cruz MD Child and Adolescent 04/08/21 Psychiatry Murali Burton MD Sports Medicine 04/08/21 Otoniel Coulter MD Ophthalmology 04/08/21 documented as of this encounter
--- OUTSIDE RECORDS SUMMARY | 2022-06-24 11:47 | XMS_ITS | Encounter Summary ---
:2000 Author Organization [facility] Address [address] [place] [address] Care Team Providers Name Role Phone Michaela Saldaña MD Unavailable Alee Cruz MD Unavailable Murali Burton MD Unavailable Otoniel Coulter MD Unavailable Arnold Harrison MD Primary Care Provider Reason for Visit Reason Comments Follow-up mood Encounter Details Date Type Department Care Team Description 05/21/2021 Telemedicine [facility] - Arnold Harrison iatica, right side (Primary Dx); [facility] Emma Jones MD History of opioid abuse ([facility]); Family Medicine - [address] [place] [address] Substance use disorder; [place], [place] Supervision of high risk pre gnancy in third trimester [address] [place] [id number] [place] [address] [phone] Social History Tobacco Use Types Packs/Day Years [...] Sign Reading Time Taken Comments Blood Pressure - - Pulse - - Temperature - - Respiratory Rate - - Oxygen Saturation - - Inhaled Oxygen Concentration - - Weight 89.5 kg (197 lb 6.4 oz) 05/21/2021 09 EDT Height 172.7 cm (5' 8) 05/21/2021 09 EDT Body Mass Index 30.01 05/21/2021 09 EDT documented in this encounter Functional Status [...] Date gabapentin (NEURONTIN) Take 1 capsule by 90 capsule 0 202006/25/2021 300 mg mouth 3 times capsuleIndications: daily. Sciatica, right side documented in this encounter Progress Notes Arnold Harrison MD - 05/21/2021 1000 EDT [facility] Video Visit Today's visit was provided through telemedicine video conferencing: The location of the patient: Home The location of the provider: Office Verbal consent: The concept of ???Telemedicine?? has been described to the patient.Patient has been informed of theanticipated benefits and possible risks. Patient understands the information provided regarding telemedicine, has had the opportunity to ask questions about this information, and all questions have been answered to patient???s satisfaction. Patient consents for the use of telemedicine in his/her medical care and authorizes the transmission of any relevant medical information to providers and their staff involved in patient???s medical or mental health care. Verbal consent obtained by myself or auxiliary staff: Yes Subjective: Chief Complaint(s): Follow-up (mood) HPI: Her biological grandfather and she was at a in [place] yesterday. Marlo notes that she is doing alright now. She has 3 weeks left until her due date. She has an appointment with her tobacco sampler tomorrow at [facility]. She has been doing really well with her recovery. She had a recent UA that was clean. She is doing pretty good with her addiction issues. Her parents have been proud of her. Her sister and her family have been supportive. She is still doing phone appointments with her counselor at [facility] twice a week and has a suboxone prescriber at [facility]. She is hoping to have a psychiatric prescriber through [facility] but has been having a hard time getting in with them. She had an emergency visit someone in [facility] that she is established with. She wanted to discuss gabapentin today. She has some sciatic pain and it is getting bad again. She is wondering about getting back on gabapentin. She was on 800 mg four times a day before. She thinks that the pain that she feels is the same pain that she has always had. It started acting up again the last few weeks.She has tried muscle relaxers and toradol in the past. She has tried PT, chiropractic. Her mom notesthat her hip popped out when she was younger and her foot and leg goes numb. Heat makes it worse. Ice pack helps for a couple of minutes. She notes that her sciatic pain got worse after she had her first child and so she is afraid that that might happen again. She would really like to get back on it. I have reviewed patient's tobacco history: reports that she has been smoking cigarettes. She has a 0.50 pack-year smoking history. She has never used smokeless tobacco. I have reviewed current problem list and current medications. Objective: Examination: Home Vitals: Ht 172.7 cm (68) Wt 89.5 kg (197 lb 6.4 oz) LMP (LMP Unknown) BMI 30.01 kg/m?? GENERAL APPEARANCE: no acute distress, pleasant, cooperative. HEENT: NCAT, anicteric sclera. NECK: No masses noted, trachea midline CHEST: normal shape and expansion. SKIN: warm & dry. FACE: no lesions. NEUROLOGIC EXAM: alert & oriented Data reviewed with patient: Reviewed and/or ordered active problem list, medication list, allergies tests Assessment & Plan: 1. Sciatica, right side gabapentin (NEURONTIN) 300 mg capsule 2. History of opioid abuse ([facility]) 3. Substance use disorder 4. Supervision of high risk in third trimester Marlo Lewis is a pleasant 21 yrs old female with a long history of substance use disorder currently in treatment. She is also in her 3rd trimester and about to have her second child. 1. Marlo notes that this problem has been managed with chronic use of gabapentin in the past. Her other prescribers have told her that her PCP needs to prescribe the medication. Will restart gabapentin and coordinate with psychiatry and treatment associates. 2. Currently in treatment with MAT at the [facility]. Continue current level of care and coordinate with MAT team. 3. As above 4. Continue follow up with OB for high risk . I spent a total of 30 minutes in review of the chart and discussion with the patient as described inthe progress note. The following individuals and their role did participate in today's encounter visit: Provider: Arnold Harrison MD Patient Patient's mother documented in this encounter Plan of Treatment Upcoming Encounters Date Type Specialty Care Team Description 06/25/2022 Telemedicine Family Medicine Chandrika Harrison MD Arrived [address] [place], [place] [phone] (Wo rk) documented as of this encounter Visit Diagnoses Diagnosis Sciatica, right side - Primary History of opioid abuse ([facility]) ([facility]) Opioid abuse, in remission Substance use disorder Supervision of high risk in th ird trimester Unspecified high-risk documented in this encounter Discontinued Medications Medication Sig Discontinue Reason Start Date End Date HYDROcodone-acetaminophe Take 1 Tablet by Therapy completed 021 05/21/2021 n (NORCO) 5-325 mg mouth every 6 hours tablet as needed. documented as of this encounter Historical Medications This list may reflect changes made after this encounter. Medication Sig Dispensed Refills Start Date End Date traZODone (DESYREL) 150 Take 150 mg by mouth 0 mg tablet at bedtime. HYDROcodone-acetaminophen Take 1 Tablet by 0 04/2805/21/2021 (NORCO) 5-325 mg tablet mouth every 6 hours as needed. cloNIDine HCL (CATAPRES) Take 0.2 mg by mouth 0 0 05/07/2021 06/24/2021 0.2 mg tablet at bedtime. added in this encounter Care Teams Vocational Nursing Instructor Relationship Specialty Start Date End Date Arnold Harrison MD PCP - General Family Medicine - Primary 04/30/21 [address] [place] [phone] Michaela Saldaña MD Obstetrics and Gynecology 04/08/[address] [place] [address], [address] [place] [address] Alee Cruz MD Child and Adolescent 04/08/21 Psychiatry Murali Burton MD Sports Medicine 04/08/21 Ootniel Coulter MD Ophthalmology 04/08/21 documented as of this encounter
--- OUTSIDE RECORDS SUMMARY | 2022-06-24 11:47 | XMS_ITS | Encounter Summary ---
:2000 Author Organization [facility] Address [address] [place] [address] Care Team Providers Name Role Phone Michaela Saldaña MD Unavailable Alee Cruz MD Unavailable Murali Burton MD Unavailable Otoniel Coulter MD Unavailable Arnold Harrison MD Primary Care Provider Reason for Visit Reason Onset Date Comments Post- Care 06/22/2021 Encounter Details Date Type Department Care Team Description 06/22/2021 Telephone [facility] - [facility] Keyon Padilla, RN Post- Care [facility] [address] [place] [address] Social History Tobacco Use Types [...] this encounter Miscellaneous Notes Telephone Encounter - Naz Padilla RN - 06/23/2021 0851 EDT Called pt; doing ok. Denies fevers. No worsening pain. Scheduled for OV tomorrow with CG (coming in for appt with baby first) elephone Encounter - Jessenia Weinberg CNM - 06/22/2021 1156 EDT She had a vaginal laceration - She probably needs to be seen to make sure she does not have an infection elephone Encounter - Naz Padilla RN - 06/22/2021 1047 EDT Chart reviewed; pt delivered on 06/12/21 after shoulder dystocia; right labial lac repaired; trailing membranes. CG delivery provider. Spoke with pt. Reports having vaginal pain. States it is not crampy, it is a pinchy & bruised feeling. Hurts all the time; wakes her up at night. Using dermaplast every time she goes to the bathroom (changing pad every hour for comfort). States bleeding is like a normal period. No odor to bleeding. Reports external burning with urination (using sheryl bottle). Denies bladder pain, frequency/urgency. Taking tylenol and ibuprofen as prescribed with little relief. Denies fevers. Cori - please advise; thanks elephone Encounter - Naz Padilla RN - 06/22/2021 1043 EDT ----- Message from PIYUSH Rucker sent at 06/22/2021 10:31 EDT ----- Regarding: Patient call Michelet, I just spoke w/ Marlo for a PP support call. She said she is in a lot of pain, in her vagina, and is concerned. She indicated her mood is stable, baby is doing well, and no other concerns. Mayi Monreal documented in this encounter Plan of Treatment Upcoming Encounters Date Type Specialty Care Team Description 06/25/2022 Telemedicine Family Medicine Chandrika Harrison MD Arrived [address] [place] [phone] (Wo rk) documented as of this encounter Visit Diagnoses Not on filedocumented in this encounter Care Teams Research Associate Quality Control Qc Relationship Specialty Start Date End Date Arnold Harrison MD PCP - General Family Medicine - Primary 04/30/21 [address] [place] [phone] Michaela Saldaña MD Obstetrics and Gynecology 04/08/[address] [facility], [address] [place] [address] Alee Cruz MD Child and Adolescent 04/08/21 Psychiatry Murali Burton MD Sports Medicine 04/08/21 Otoniel Coulter MD Ophthalmology 04/08/21 documented as of this encounter
--- OUTSIDE RECORDS SUMMARY | 2022-06-24 11:47 | XMS_ITS | Encounter Summary ---
:2000 Author Organization [facility] Address [address] [place] [address] Care Team Providers Name Role Phone Michaela Saldaña MD Unavailable Alee Cruz MD Unavailable Murali Burton MD Unavailable Otoniel Coulter MD Unavailable Arnold Harrison MD Primary Care Provider Reason for Visit Reason Comments Other Decreased movement Encounter Details Date Type Department Care Team Description 05/23/[address] [facility] - Elizabeth Kwan reased movements in third trimester, single or unspecified fetus (Primary Dx); [facility] Yennifer, [employer] Supervision of high risk in th ird trimester; [address] Previous delivery affecting pre gnancy; [place] [address] [address] History of opioid abuse ([facility]); [phone] [place], [place] Depression affe cting in second trimester, antepartum; [phone] Anxiety disorder affecting , an tepartum; [phone] Tobacco use aff ecting in second trimester, antepartum; (Work) Marijuana use Social History Tobacco Use Types Packs/Day Years [...] one Never 05/07/2021 occasion? Comment: socially, on s 12/11/2020 Intimate Partner Violence Answer Date Recorded [...] Sign Reading Time Taken Comments Blood Pressure 116/67 05/23/20212130 EDT Pulse - - Temperature - - Respiratory Rate - - Oxygen Saturation - - Inhaled Oxygen Concentration - - Weight 92.1 kg (203 lb) 05/23/20212130 EDT Height 172.7 cm (5' 7.99) 05/23/20212130 EDT Body Mass Index 30.87 05/23/20212130 EDT documented in this encounter Functional Status [...] documented as of this encounter Progress Notes Yennifer Kwan, GLORIA - 05/23/20212124 EDT Women's & Children's Triage Visit Subjective: Marlo Lewis is a 21 y.o. at 37w0d presenting with decreased movement after talking with the on-call provider. She is accompanied by her mother Krista Bentley. She reported not feeling herbaby move for most of the day prior to calling. She tried oral fluids, ice water, but finally calledafter not feeling her baby move. She also reports - some intermittent low back pain that is crampy in nature with an increase in clear fluid leaking from her vagina today. No bleeding. No foul odor. Since being on WACU, she is feeling her baby move. Pt denies: headache, vision changes, vaginal bleeding, or contractions. Pertinent Care Issues: 1) previous x1 - @ 36 weeks for IUGR - Desires TOLAC 2) Hx of Hep C - undetectable viral load 02/2021 3) Hx of Opioid Abuse - using Suboxone from street 8 mg, At [facility] program taking 16 mg BID 4) Tobacco Use - cessation info given and encouraged 5) THC use daily - discussed not recommended 6) Depression, anxiety, bipolar, anger issues - psych consult made 7) + Trichomonas - 03/06/21, nursing trying to reach pt. [ x ] confirm treated, [ x ] HERBER in 4 weeks, [ x ] 30 wks neg, [ ] STD screen again at 36 weeks 8) Varicella non-immune 9) No pap result in Epic - will need pap in PP period 10) Social upheaval - partner back in [facility] as of - CHT involved with this client 11) Needs Hep B antigen at next AP visit 12) Report has been made to DCF now because not engaging in MAT and has had + cocaine in her urine at treatment center- need UDS at visits. 13) + cocaine and MJ in urine on UDS in office at 31 wk Ultrasound: Last US yesterday 05/22 with normal KIMBERLEY, EFW 6lb 8 oz Current Outpatient Medications on File Prior to Visit Medication Sig Dispense Refill ??? acetaminophen (TYLENOL) 500 mg tablet Take 500 mg by mouth every 6 hours as needed for Pain (headaches). ??? bisacodyL (DULCOLAX, BISACODYL,) [address] 1 Suppository rectally as needed for upto 5 doses for Constipation. (Patient not taking: Reported on 05/23/2021) 5 Suppository 0 ??? buprenorphine-naloxone (SUBOXONE) 8-2 mg tablet, sublingual Place 2 Tabs under the tongue daily. ??? cloNIDine HCL (CATAPRES) 0.2 mg tablet Take 0.2 mg by mouth at bedtime. ??? docusate sodium (COLACE) 100 mg capsule Take 1 Cap by mouth 2 times daily. (Patient taking differently: Take 100 mg by mouth as needed. ) 60 Cap 1 ??? gabapentin (NEURONTIN) 300 mg capsule Take 1 capsule by mouth 3 times daily. 90 capsule 0 ??? ipratropium/albuterol sulfate (IPRATROPIUM-ALBUTEROL INHALATION) Inhale 2 Puffs as directed every 6 hours as needed. ??? methylphenidate HCl (RITALIN;METHYLIN) 20 mg tablet Take 1 Tab by mouth 2 times daily. ??? OLANZapine (ZYPREXA) 5 mg tablet Take 5 mg by mouth daily. ??? VITAMIN PLUS LOW IRON 27 mg iron- 1 mg tablet tablet Take 1 Tab by mouth daily. ??? promethazine (PHENERGAN) 25 mg tablet Take 1 Tab by mouth 2 times daily. (Patient taking differently: Take 25 mg by mouth 2 times daily as needed. ) 60 Tab 1 ??? rizatriptan (MAXALT) 10 mg tablet Take 10 mg by mouth once as needed for Migraine. May repeat in2 hours if needed (Patient not taking: Reported on 05/23/2021) ??? traZODone (DESYREL) 150 mg tablet Take 150 mg by mouth at bedtime. ??? triamcinolone (KENALOG) 0.1 % cream Apply to affected areas twice daily as needed 45 g 1 No current facility-administered medications on file prior to visit. Objective: Patient Vitals for the past 24 hrs: BP Height Weight 05/23/21 2131 116/67 172.7 cm (67.99) 92.1 kg (203 lb) General: NAD, interactive well-being: Non-Stress Test Baseline: FHT 135 Moderate: variability Accelerations: present No late or variable decelerations Contractions - toco quiet 1. Decreased movements in third trimester, single or unspecified fetus 2. Supervision of high risk in third trimester 3. Previous delivery affecting 4. History of opioid abuse ([facility]) 5. Depression affecting in second trimester, antepartum 6. Anxiety disorder affecting , antepartum 7. Tobacco use affecting in second trimester, antepartum 8. Marijuana use Assessment: 1. Marlo Lewis is a 21 y.o. at 37w0d 2. FWB: Reactive NST, Category I 3. Decreased FM has resolved Plan: 1. Reassurance about FWB 2. UDS sent, HIV, RPR, Hep C viral load, Hep B antigen, CBC sent 3. kick counts reviewed 4. Clear precautions reviewed and handout given 5. Reviewed high risk meds - recently started on both gabapentin 300 mg TID and has been on Clonidine 0.2 mg at HS for sleep in addition to other psych meds - see list above. Release of records signed,will f/u with psych prescriber early next week. 6. Follow up for regularly scheduled AP office visit 7. Call or see sooner SHREE Kwan CNM, [facility] Certified Nurse Client Portfolio Manager & Family Nurse Practitioner documented in this encounter Plan of Treatment Upcoming Encounters Date Type Specialty Care Team Description 06/25/2022 Telemedicine Family Medicine Chandrika Harrison MD Arrived [address] [place] [phone] (Wo rk) documented as of this encounter Visit Diagnoses Diagnosis Decreased movements in third trime ster, single or unspecified fetus - Primary Supervision of high risk in th ird trimester Unspecified high-risk Previous delivery affecting pre gnancy Previous delivery, unspecified as to episode of care or not applicable History of opioid abuse ([facility]) ([facility]) Opioid abuse, in remission Depression affecting in second trimester, antepartum Anxiety disorder affecting , an tepartum Tobacco use affecting in secon d trimester, antepartum Marijuana use Cannabis abuse, unspecified documented in this encounter Care Teams Cra Officer Relationship Specialty Start Date End Date Arnold Harrison MD PCP - General Family Medicine - Primary 04/30/21 [address] [place] [phone] Michaela Saldaña MD Obstetrics and Gynecology 04/08/21 [address] [facility], [address] [place] [address] Alee Cruz MD Child and Adolescent 04/08/21 Psychiatry Murali Burton MD Sports Medicine 04/08/21 Otoniel Coulter MD Ophthalmology 04/08/21 documented as of this encounter
--- OUTSIDE RECORDS SUMMARY | 2022-06-24 11:47 | XMS_ITS | Encounter Summary ---
:2000 Author Organization [facility] Address [address] [place] [address] Care Team Providers Name Role Phone Michaela Saldaña MD Unavailable Alee Cruz MD Unavailable Murali Burton MD Unavailable Otoniel Coulter MD Unavailable Arnold Harrison MD Primary Care Provider Reason for Visit Reason Comments Routine Visit Encounter Details Date Type Department Care Team Description 06/08/2021 Routine [facility] - [facility] ede Mukherjee MD GA: 39w2d [facility] [address] [facility] [address] [facility] [address], [address] [place] [address] [place] [address] (Wo rk) Social History Tobacco [...] Sign Reading Time Taken Comments Blood Pressure 122/72 06/08/2021 1329 EDT Pulse - - Temperature - - Respiratory Rate - - Oxygen Saturation - - Inhaled Oxygen Concentration - - Weight 93.9 kg (207 lb) 06/08/2021 1329 EDT Height 172.7 cm (5' 7.99) 06/08/2021 1329 EDT Body Mass Index 31.48 06/08/2021 1329 EDT documented in this encounter Functional Status [...] documented as of this encounter Progress Notes Lupe Mukherjee MD - 06/08/2021 1320 EDT [facility] Antepartum visit note S: Marlo Lewis is a 21 y.o. 39w2d. She reports good FM. Some back pain and intermittent contractions. Anxious to be delivered. O: Vitals: BP: 122/72 Height: 172.7 cm (67.99) Weight : 93.9 kg (207 lb) BMI: 31.547 Albumin: Negative Glucose: Negative Fundal Height (cm): 39 cm Heart Rate: 135 Movement: Present Presentation: Vertex Dilation: 2.5 Effacement (%): 80 Station: Ballotable Outpatient Medications Marked as Taking for the 06/08/21 encounter (Routine ) with Lupe Mukherjee MD Medication Sig ??? acetaminophen (TYLENOL) 500 mg tablet Take 500 mg by mouth every 6 hours as needed for Pain (headaches). ??? bisacodyL (DULCOLAX, BISACODYL,) [address] 1 Suppository rectally as needed for upto 5 doses for Constipation. ??? buprenorphine-naloxone (SUBOXONE) 8-2 mg tablet, sublingual Place 2 Tabs under the tongue daily. ??? docusate sodium (COLACE) 100 mg capsule Take 1 Cap by mouth 2 times daily. (Patient taking differently: Take 100 mg by mouth as needed. ) ??? gabapentin (NEURONTIN) 300 mg capsule Take 1 capsule by mouth 3 times daily. ??? ipratropium/albuterol sulfate (IPRATROPIUM-ALBUTEROL INHALATION) Inhale 2 [...] Tab by mouth 2 times daily. ??? traZODone (DESYREL) 150 mg tablet Take 150 mg by mouth at bedtime. ??? triamcinolone (KENALOG) 0.1 % cream Apply to affected areas twice daily as needed A/P:21 y.o. 39w2d seen for a follow up antepartum visit. Plans TOLAC. IOL arranged for Tuesdayif no spontaneous labor prior. Problem List Items Addressed This Visit Supervision of high-risk Relevant Orders DRUG SCREEN, PRESCRIPTION/OTC, URINE History of opioid abuse ([facility]) Relevant Orders DRUG SCREEN, PRESCRIPTION/OTC, URINE Tobacco use affecting in second trimester, antepartum Depression affecting in second trimester, antepartum Anxiety disorder affecting , antepartum Previous delivery affecting Lupe Mukherjee MD 06/08/2021 13:59 documented in this encounter Plan of Treatment Upcoming Encounters Date Type Specialty Care Team Description 06/25/2022 [facility] Family Medicine Chandrika Harrison MD Arrived [address] [place], [place] [phone] (Wo rk) Scheduled Orders Name Type Priority Associated Diagnoses Order S chedule DRUG SCREEN, Lab Routine History of opioid abuse Orde red: 06/08/2021 PRESCRIPTION/OTC, URINE ([facility] ) Supervision of high risk in third trimester documented as of this encounter Visit Diagnoses Diagnosis Supervision of high risk in th ird trimester - Primary Unspecified high-risk Previous delivery affecting pre gnancy Previous delivery, unspecified as to episode of care or not applicable History of opioid abuse ([facility]) ([facility]) Opioid abuse, in remission Depression affecting in second trimester, antepartum Anxiety disorder affecting , an tepartum Tobacco use affecting in secon d trimester, antepartum documented in this encounter Care Teams Press Assistant Relationship Specialty Start Date End Date Arnold Harrison MD PCP - General Family Medicine - Primary 04/30/21 [address] [place] [phone] Michaela Saldaña MD Obstetrics and Gynecology 04/08/21 [address] [facility], [address] [place] [address] Alee Cruz MD Child and Adolescent 04/08/21 Psychiatry Murali Burton MD Sports Medicine 04/08/21 Otoniel Coulter MD [facility] 04/08/21 documented as of this encounter
--- OUTSIDE RECORDS SUMMARY | 2022-06-24 11:47 | XMS_ITS | Encounter Summary ---
:2000 Author Organization [facility] Address [address] [place] [address] Care Team Providers Name Role Phone Michaela Saldaña MD Unavailable Alee Cruz MD Unavailable Murali Burton MD Unavailable Otoniel Coulter MD Unavailable Arnold Harrison MD Primary Care Provider Reason for Visit Reason Comments Follow-up Encounter Details Date Type Department Care Team Description 06/25/2021 Telemedicine [facility] - Arnold Harrison iatica, right side (Primary Dx); [facility] Emma Jones MD Moderate episode of recurrent major depr essive disorder ([facility]); Family Medicine - [address] [place] [address] Generalized anxiety disorder; [place], [place] History of opioid abuse ([facility]); [address] [place] [phone] [place] [address] [phone] Social History Tobacco Use Types Packs/Day Years [...] - Inhaled Oxygen Concentration - - Weight 87.1 kg (192 lb) 06/25/2021 0923 EDT Height 170.2 cm (5' 7) 06/25/2021 0923 EDT Body Mass Index 30.07 06/25/2021 0923 EDT documented in this encounter Functional Status [...] Take 1 capsule by 90 capsule 0 202007/23/2021 300 mg mouth 3 times capsuleIndications: daily. Sciatica, right side documented in this encounter Progress Notes Arnold Harrison MD - 06/25/2021 1130 EDT [facility] Video Visit Today's visit was provided through [...] auxiliary staff: Yes Subjective: Chief Complaint(s): Follow-up HPI: She had a little girl named Sridevi Tari who is 2 weeks old now. She has been trying to breast feed but struggling. Has been supplementing with formula. Marlo notes that her milk supply is decreasing. She has been out of gabapentin for the last couple of days but would like to resume. Marlo has been pumping breast milk and is thinking of just doing all formula and giving up on breast feeding. Marlo notes that the gabapentin helps her with her back and sciatic pain. She's been out for a few days. Having the baby didn't help at all with the pain. Marlo notes that she has been seeing a psychiatrist over the phone--the one in [facility]. Dr. Janneth Sweet. She prescribes the methyphenidate, olanzapine, and trazodone. She is still hoping to move to [facility]. She has been clean for 2.5 months. She feels pretty secure in her sobriety. I have reviewed patient's tobacco history: reports that she has been smoking cigarettes. She has a 0.50 pack-year smoking history. She has never used smokeless tobacco. I have reviewed current problem list and current medications. Objective: Examination: Home Vitals: Ht 170.2 cm (67) Wt 87.1 kg (192 lb) LMP (LMP Unknown) BMI 30.07 kg/m?? GENERAL APPEARANCE: no acute distress, pleasant, [...] Moderate episode of recurrent major depressive disorder ([facility]) 3. Generalized anxiety disorder 4. History of opioid abuse ([facility]) 5. Tobacco use disorder Marlo Lewis is a pleasant 21 yrs old female with a history of substance use disorder and depression who is a new mom. She has a long history of sciatica treated with gabapentin. 1. Reviewed risks, potential side effects, and benefits of medication today. All questions answered.Reviewed risks with and breast feeding. Marlo would like to resume gabapentin today. Prescription sent. 2. Stable, continue current treatment, follow up with psychiatry 3. Stable, continue current treatment and follow up with psychiatry 4. Continue treatment at the [facility] 5. Continue tobacco cessation I spent a total of 30 minutes in review of the chart and discussion with the patient as described inthe progress note. The following individuals and their role did participate in today's encounter visit: Provider: Arnold Harrison MD Patient Charla Segovia MA - 06/25/2021 1130 EDT PRE-VISIT PLANNING- Advance Directive- None on [...] done LABS/POCT/PROCEDURES DUE FOR (BY PROBLEM LIST)- None VISIT NOTES- Pharmacy verified. [id number] - [place], [place] - [address] [facility] [address] [facility] [facility] [phone] [id number] - [facility] - [address] [facility] [address] [facility] [phone] [facility] [place] - [address] [place] [address] documented in this encounter Plan of Treatment Upcoming Encounters Date Type Specialty Care Team Description 06/25/2022 Telemedicine Family Medicine Chandrika Harrison MD Arrived [address] [place] [phone] (Wo rk) documented as of this encounter Visit Diagnoses Diagnosis Sciatica, right side - Primary Moderate episode of recurrent major depr essive disorder (HCC) Generalized anxiety disorder History of opioid abuse ([facility]) (HCC) Opioid abuse, in remission Tobacco use disorder documented in this encounter Discontinued Medications Medication Sig Discontinue Reason Start Date End Date voy-PS-GB-acetaminophen- TAKE 2 TABLETS BY Therapy completed 202006/25/2021 guaifn 5-6-93-325-200 mg MOUTH EVERY 6 HOURS (day/night) tablets, NEEDED FOR PAIN sequential gabapentin (NEURONTIN) Take 1 capsule by Reorder 05/21/2021 06/25/2021 300 mg mouth 3 times daily. capsuleIndications: Sciatica, right side documented as of this encounter Care Teams Dough Cutting Machine Operator Relationship Specialty Start Date End Date Arnold Harrison MD PCP - General Family Medicine - Primary 04/30/21 [address] [place] [phone] Michaela Saldaña MD Obstetrics and Gynecology 04/08/21 [address] [facility], [address] [place] [address] Alee Cruz MD Child and Adolescent 04/08/21 Psychiatry Murali Burton MD Sports Medicine 04/08/21 Otoniel Coulter MD Ophthalmology 04/08/21 documented as of this encounter
--- OUTSIDE RECORDS SUMMARY | 2022-06-24 11:47 | XMS_ITS | Encounter Summary ---
:2000 Author Organization [facility] Address [address] [place] [address] Care Team Providers Name Role Phone Michaela Saldaña MD Unavailable Alee Cruz MD Unavailable Murali Burton MD Unavailable Otoniel Coulter MD Unavailable Arnold Harrison MD Primary Care Provider Reason for Visit Reason Comments Post- Care 2 wks pp Encounter Details Date Type Department Care Team Description 06/24/2021 Visit [facility] - Jessenia Weinberg Endometritis (Primary Dx); [facility] Dysuria [address] [place] [address] [facility] [place] [address] Social History Tobacco Use Types Packs/Day Years [...] Sign Reading Time Taken Comments Blood Pressure 108/62 06/24/2021 1130 EDT Pulse 70 06/24/2021 1130 EDT Temperature 36.9 ??C (98.4 ??F) 06/24/2021 1130 EDT Respiratory Rate - - Oxygen Saturation 98% 06/24/2021 1130 EDT Inhaled Oxygen Concentration - - Weight 87.1 kg (192 lb) 06/24/2021 1130 EDT Height 170.2 cm (5' 7) 06/24/2021 1130 EDT Body Mass Index 30.07 06/24/2021 1130 EDT documented in this encounter Functional Status [...] Sig Dispensed Refills Start Date End Date amoxicillin-clavulanate Take 1 Tablet by 14 Tablet 0 202007/01/2021 (AUGMENTIN) 875-125 mg per mouth 2 times daily tablet for 7 days. documented in this encounter Progress Notes Jessenia Weinberg CNM - 06/24/2021 1100 EDT 2 Week Visit SUBJECTIVE: Routine post- exam. Now 2 weeks post-. Date of Delivery:06/12/2021 Sex of baby: female Name: Sridevi Type of delivery:Vaginal Laceration: 2nd degree vaginal and right labial Any complications: Has been having vaginal pain since hospital discharge. Feels like it has gotten worse and is feeling pelvic pressure. Discomfort after she voids. Uncomfortable to sit. Still having red vaginal bleeding. No odor. Has been a febrile, denies chills or malaise. Concerns: Any health problems or concerns since d/c from the hospital? Vaginal pain, pelvic pain, lots pressure and soares. Social and family supports? Good How is family adjusting to new baby? Good How do you feel you are coping?Good Breast or Bottlefeeding? Bottle and Breast and formula Bleeding: yes still bleeding since delivery Contraception planned: Doesn't want any form of BC Any urinary Symptoms: No Any bowel Symptoms: Yes has only had 1 BM since discharge Any mood Symptoms: NO [place] Depression Screen: Her total score is 0 Current Outpatient Medications Medication ??? acetaminophen (TYLENOL) 500 mg tablet ??? bisacodyL (DULCOLAX, BISACODYL,) 10 mg suppository ??? buprenorphine-naloxone (SUBOXONE) 8-2 mg tablet, sublingual ??? dqp-TJ-ST-acetaminophen-guaifn 7-8-78-325-200 mg (day/night) tablets, sequential ??? docusate sodium (COLACE) 100 mg capsule ??? gabapentin (NEURONTIN) 300 mg capsule ??? ibuprofen (MOTRIN) 600 mg tablet ??? ipratropium/albuterol sulfate (IPRATROPIUM-ALBUTEROL INHALATION) ??? methylphenidate HCl (RITALIN;METHYLIN) 20 mg tablet ??? OLANZapine (ZYPREXA) 5 mg tablet ??? VITAMIN PLUS LOW IRON 27 mg iron- 1 mg tablet tablet ??? rizatriptan (MAXALT) 10 mg tablet ??? traZODone (DESYREL) 150 mg tablet ??? triamcinolone (KENALOG) 0.1 % cream No current facility-administered medications for this visit. Allergies Allergen Reactions ??? Adhesive Hives ??? Latex, Natural Rubber Hives OBJECTIVE: LMP (LMP Unknown) There is no height or weight on file to calculate BMI. Appears well, NAD, interactive. Good eye contact & bright affect Lungs clear bilaterally Heart - RSR Abdomen - +BS x4 - soft - tender upon palpation on lower pelvic region. Uterus firm and mobile. Guarded when palpated right pelvic area. GRANITE POLISHER APPRENTICE: Vaginal laceration without s/s of infection. Sutures in place and healing. Palpated internally and no hematoma palpated. Bimanual exam with tender adenexal areas; however, no CMT. ASSESSMENT/PLAN: Consulted with Dr. Montgomery and she came in room for follow up assessment. Agrees with probable endometritis. We both recommended hospitalization for IV antibiotics; however, she was not agreeable to thisat this time. She was with her mother and baby today and stated that she wanted to try PO antibiotics before being placed in hospital. We both explained this would not be the preferred treatment, and we advised against this course, but she was adamant on her decision. Orderd CBC with diff, but states she could not wait to have that done. Discussed picking up antibiotic now and starting PAULINO. If she develops fever, malaise, chills, increased pain, foul smelling lochia she is to present to ER immediately. She is living with her mother that ensures she will watch her closely. She will return on Tuesdayand if she is not feeling better, will be admitted at that time. She is agreeable with this plan. Return to office on Tuesday for follow up See sooner PRN documented in this encounter Plan of Treatment Upcoming Encounters Date Type Specialty Care Team Description 06/25/2022 Telemedicine Family Medicine Chandrika Harrison MD Arrived [address] [place], [place] [phone] (Wo rk) Scheduled Orders Name Type Priority Associated Diagnoses Order S chedule COMPLETE BLOOD COUNT AND Lab Routine Endometritis Exp ected: 06/24/2021 DIFFERENTIAL (Approximate), Expires: 06/24/2022 URINE CHEMICAL (DIP) & Lab Routine Dysuria Order ed: 06/24/2021 SEDIMENT (MICRO) WITH REFLEX TO CULTURE documented as of this encounter Procedures Procedure Name Priority Date/Time Associated Diagnosis Comme nts URINALYSIS/COMPLETE Routine 06/24/2021 12:00 Endometritis Resu lts for this - [facility] EDT procedure are i n the results section. URINE CULTURE IF Routine 06/24/2021 12:00 Endometritis Results for this POSITIVE EDT procedure are i n the results section. documented in this encounter Results URINE CULTURE IF POSITIVE (06/24/2021 12:00 EDT) Pathologist Sig nature USUAL UROGENITAL UUV [facility] COLONY COUNT 10,000-100,000 CFU/ML [facility] Specimen Urine Performing Organization Address City/State/ZIP Code Phon e Number [facility] [address] [place] [address] URINALYSIS/COMPLETE - [facility] (06/24/2021 12:00 EDT) URINE APPEARANCE - Clear CLEAR [facility] URINE BACTERIA - MOD [facility] URINE BILIRUBIN - Negative NEGATIVE [facility] URINE BLOOD - [facility] Trace NEG [facility] URINE COLOR - [facility] Yellow YELLOW [facility] URINE GLUCOSE - Negative NEGATIVE [facility] URINE KETONE - [facility] Negative NEGATIVE [facility] URINE LEUK ESTERASE 3+ NEG [facility] URINE NITRITE - Negative NEG [facility] URINE PH - [facility] 7.0 4.0 - 8.0 [facility] URINE PROTEIN - Negative NEG [facility] - [facility] URINE RBC - [facility] RARE rbc/hpf [facility] URCULTIF+? - [facility] Culture Ordered [facility] URINE SPECIFIC 1.010 1.001 - 1.035 [facility] GRAVITY - [facility] URINE SQUAMOUS CELLS MOD NEG #/hpf [facility] URINE UROBILINOGEN - 0.2 0.2 - 1.0 [facility] - [facility] URINE WBC - [facility] 20-30 NEG wbc/hpf [facility] URINE WBC CLUMPS - FEW [facility] Specimen Performing Organization Address City/State/ZIP Code Phon e Number [facility] [address] [place] [address] documented in this encounter Visit Diagnoses Diagnosis Endometritis - Primary Unspecified inflammatory disease of uter us Dysuria documented in this encounter Care Teams Imaging Technician Relationship Specialty Start Date End Date Arnold Harrison MD PCP - General Family Medicine - Primary 04/30/21 [address] [place] [phone] Michaela Saldaña MD Obstetrics and Gynecology 04/08/21 [address] [facility], [address] [place] [address] Alee Cruz MD Child and Adolescent 04/08/21 Psychiatry Murali Burton MD Sports Medicine 04/08/21 Otoniel Coulter MD Ophthalmology 04/08/21 documented as of this encounter
--- OUTSIDE RECORDS SUMMARY | 2022-06-24 11:47 | XMS_ITS | Encounter Summary ---
:1998 Author Organization [facility] Address [address] [place] [address] Care Team Providers Name Role Phone Michaela Saldaña MD Unavailable Alee Cruz MD Unavailable Murali Burton MD Unavailable Otoniel Coulter MD Unavailable Arnold Harrison MD Primary Care Provider Encounter Details Date Type Department Care Team Description 05/29/2021 Results Only [facility] - [facility] Jessenia Weinberg, [facility] [address] [place] [address] [address], [address] [place] [address] (Wo rk) Social History [...] Telemedicine Family Medicine Chandrika Harrison MD Arrived [address] [place] [phone] (Wo rk) documented as of this encounter Procedures Procedure Name Priority Date/Time Associated Diagnosis Comme nts DRUGS OF ABUSE Routine 05/29/2021 13:30 Results f or this SCREEN, URINE - EDT procedure ar e in [facility] the results section. documented in this encounter Results (ABNORMAL) DRUGS OF ABUSE SCREEN, URINE - [facility] (05/29/2021 13:30 EDT) AMPHETAMINES NEG NEG [facility] BARBITURATES,UR - NEG NEG [facility] BENZODIAZEPINES NEG NEG [facility] COCAINE,URINE - [facility] NEG NEG [facility] MAMP NEG NEG [place] (METHAMPHETAMINES - [facility] MARIJUANA,URINE - POS (A) NEG [facility] MTD (METHADONE) - NEG NEG [facility] OPIATES,URINE - [facility] NEG NEG [facility] OXY (OXYCODONE) - NEG NEG [facility] PCP (PHENCYCLIDINE) NEG NEG [place] [facility] PROPOXYPHENE (PPX) - NEG NEG [facility] TRICYCLIC NEG NEG [place] ANTIDEPRESSANTS - Comment: [facility] Drug Class ?Cutoff Concent ration CENTER [...] Organization Address City/State/ZIP Code Phon e Number [facility] [address] [place] [address] documented in this encounter Visit Diagnoses Not on filedocumented in this encounter Care Teams Biomathematician Relationship Specialty Start Date End Date Arnold Harrison MD PCP - General Family Medicine - Primary 04/30/[address] [place] [phone] Michaela Saldaña MD Obstetrics and Gynecology 04/08/21 [address] [facility], [address] [place] [address] Alee Cruz MD Child and Adolescent 04/08/21 Psychiatry Murali Burton MD Sports Medicine 04/08/21 Otoniel Coulter MD Ophthalmology 04/08/21 documented as of this encounter
--- OUTSIDE RECORDS SUMMARY | 2022-06-24 11:47 | XMS_ITS | Encounter Summary ---
:1998 Author Organization [facility] Address [address] [place] [address] Care Team Providers Name Role Phone Michaela Saldaña MD Unavailable Alee Cruz MD Unavailable Murali Burton MD Unavailable Otoniel Coulter MD Unavailable Arnold Harrison MD Primary Care Provider Encounter Details Date Type Department Care Team Description 06/03/2021 Results Only [facility] - [facility] Lupe Mukherjee MD [facility] [address] [facility] [address] [facility] [address] [place] [address] [place] [address] (Wo rk) Social History Tobacco [...] Telemedicine Family Medicine Chandrika Harrison MD Arrived [address] [place] [phone] (Wo rk) documented as of this encounter Procedures Procedure Name Priority Date/Time Associated Diagnosis Comme nts DRUGS OF ABUSE Routine 06/03/2021 11:49 Results f or this SCREEN, URINE - EDT procedure ar e in [facility] the results section. documented in this encounter Results (ABNORMAL) DRUGS OF ABUSE SCREEN, URINE - [facility] (06/03/2021 11:49 EDT) AMPHETAMINES NEG NEG [facility] BARBITURATES,UR - NEG NEG [facility] BENZODIAZEPINES NEG NEG [facility] COCAINE,URINE - [facility] NEG NEG [facility] MAMP NEG NEG [place] (METHAMPHETAMINES - [facility] MARIJUANA,URINE - POS (A) NEG [facility] MTD (METHADONE) - NEG NEG [facility] OPIATES,URINE - [facility] NEG NEG [facility] OXY (OXYCODONE) - NEG NEG [facility] PCP (PHENCYCLIDINE) NEG NEG [place] - [facility] PROPOXYPHENE (PPX) - NEG NEG [facility] TRICYCLIC NEG NEG [place] ANTIDEPRESSANTS - Comment: [facility] Drug Class ?Cutoff Concent ration [...] Number [facility] [address] [place] [address] documented in this encounter Visit Diagnoses Not on filedocumented in this encounter Care Teams Technical Support Agent Relationship Specialty Start Date End Date Arnold Harrison MD PCP - General Family Medicine - Primary 04/30/[address] [place] [phone] Michaela Saldaña MD Obstetrics and Gynecology 04/08/21 130 [facility], [address] [place] [address] Alee Cruz MD Child and Adolescent 04/08/21 Psychiatry Murali Burton MD Sports Medicine 04/08/21 Otoniel Coulter MD Ophthalmology 04/08/21 documented as of this encounter
--- OUTSIDE RECORDS SUMMARY | 2022-06-24 11:47 | XMS_ITS | Encounter Summary ---
:2000 Author Organization [facility] Address [address] [place] [address] Care Team Providers Name Role Phone Michaela Saldaña MD Unavailable Alee Cruz MD Unavailable Murali Burton MD Unavailable Otoniel Coulter MD Unavailable Arnold Harrison MD Primary Care Provider Encounter Details Date Type Department Care Team Description 05/23/2021 Results Only [facility] - [facility] Jessie Kwan sa, Women [facility] RECORDS MANAGEMENT DIRECTOR [address] [place] [address] [address], [address] [place] [address] (Wo rk) Social History [...] Telemedicine Family Medicine Chandrika Harrison MD Arrived [address] [place] [phone] (Wo rk) documented as of this encounter Procedures Procedure Name Priority Date/Time Associated Comments Diagnosis HIV 1/2 AB, P24 AG - Routine 05/23/2021 22:10 Res ults for this [facility] EDT procedure are i n the results section. COMPLETE BLOOD COUNT Routine 05/23/2021 22:10 Res ults for this WITH DIFFERENTIAL EDT procedure are in (AUTO) the results section. RAPID PLASMA REAGIN Routine 05/23/2021 22:10 Resu lts for this (RPR) WITH REFLEX, S EDT procedu re are in the results section. HCV RNA DETECT QUANT Routine 05/23/2021 22:10 Res ults for this EDT procedure are i n the results section. HEPATITIS B SURFACE Routine 05/23/2021 22:10 Resu lts for this ANTIGEN EDT procedure are i n the results section. DRUGS OF ABUSE Routine 05/23/2021 21:25 Results f or this SCREEN, URINE - [facility] EDT procedu re are in the results section. documented in this encounter Results RAPID PLASMA REAGIN (RPR) WITH REFLEX, S (05/23/2021 22:10 EDT) Pathologist Sig nature APID PLASMA REAGIN - Nonreactive NEG [facility] LAB Specimen Narrative [facility] - 021 8:27 EDT Does PT Have a Latex Allergy? YES Performing Organization Address [facility] Phon e Number [facility] [address] [place] [address] HCV RNA DETECT QUANT (05/23/2021 22:10 EDT) HCV RNA Undetected Undetected IU/mL [facility] Quantitative Comment: [facility] Result in log IU/mL is Undetected. ADDITIONAL INFORMATION ------ The quantification range of this assay is 15 to 100,00 0,000 IU/mL (1.18 log to 8.00 log IU/mL). Testing was perfor [facility] using the shantel HCV test ([employer]) with the shantel 6800 System. Test Performed by: [address] [address] Night Time Nanny: Ashkan Velazco M.D. Ph.D.; CLIA# [id number] Specimen Narrative [facility] - 021 19:18 EDT Does PT Have a Latex Allergy? YES Performing Organization Address [facility]/ZIP Code Phon e Number [facility] [address] [place] [address] HIV 1/2 AB, P24 AG - CV (05/23/2021 22:10 EDT) Pathologist Sig nature HIV 1/2 AB, P24 AG - Negative Negative [facility] Specimen Narrative [facility] - 021 0:01 EDT Does PT Have a Latex Allergy? YES Performing Organization Address City/[facility]/ZIP Code Phon e Number [facility] [address] [place] [address] HEPATITIS B SURFACE ANTIGEN (05/23/2021 22:10 EDT) Hep B Surface Ag Negative [facility] Comment: [facility] Expected Values: ??Negative. The results of this assay can be falsely lowered due t o the consumption of Biotin. Specimen Narrative [facility] - 021 23:51 EDT Does PT Have a Latex Allergy? YES Performing Organization Address [facility]/ZIP Code Phon e Number [facility] [address] [place] [address] (ABNORMAL) COMPLETE BLOOD COUNT WITH DIFFERENTIAL (AUTO) (05/23/2021 22:10 EDT) Pathologist Sig nature ABSOLUTE NEUTROPHIL 8.7 2.2 - 8.85 [facility] 10e3/uL CENTER LAB BASO # - [facility] 0.08 0.01 - 0.11 [facility] 10e/uL CENTER LAB BASO % - [facility] 1 0 - 2 % [facility] EOS # - [facility] 0.33 0.03 - 0.61 [facility] 10e3/ul CENTER LAB EOS % - [facility] 3 0 - 5 % [facility] GRAN % - [facility] 65.3 40 - 80 % [facility] HEMATOCRIT - [facility] 35.2 34.9 - 44.4 % [facility] HEMOGLOBIN - [facility] 12.1 11.6 - 15.2 [facility] g/dl G[facility]F LAB IG# - [facility] 0.12 0 - 0.7 10e3/uL [facility] IG% - [facility] 0.9 0 - 0.9 % [facility] LYMPH # - [facility] 3.0 1.09 - 3.3 [facility] 10e3/ul CENTER LAB LYMPH% - [facility] 22.1 20 - 40 % [facility] MEAN CORPUSCULAR HGB 32.6 26.7 - 33.3 pg [facility] ME D - [facility] CENTER LAB MEAN CORPUSCULAR HGB 34.4 32.1 - 35.9 [facility] CONC [facility] g/dL CENTER LAB MEAN CELL VOLUME - 94.9 81 - 98 fl [facility] MONO # - [facility] 1.1 (H) 0.1 - 0.8 [facility] 10e3/uL CENTER LAB MONO% - [facility] 8.6 0 - 12 % [facility] PLATELET COUNT 264 141 - 377 [facility] 10e3/ul [facility] RED BLOOD COUNT - 3.71 (L) 3.86 - 5.04 [facility] 10e6/ul [facility] LAB RED CELL DISTRI WIDTH 13.0 <14.7 % [facility] WHITE BLOOD COUNT - 13.3 (H) 4.0 - 12.4 [facility] 10e3/ul [facility] Specimen Narrative [facility] - 021 22:26 EDT Does PT Have a Latex Allergy? YES Performing Organization Address City/State/ZIP Code Phon e Number [facility] [address] [place] [address] (ABNORMAL) DRUGS OF ABUSE SCREEN, URINE [facility] (05/23/2021 21:25 EDT) AMPHETAMINES NEG NEG [facility] BARBITURATES,UR - NEG NEG [facility] BENZODIAZEPINES NEG NEG [facility] COCAINE,URINE - [facility] NEG [facility] MAMP NEG NEG [place] (METHAMPHETAMINES - [facility] CENTER LAB MARIJUANA,URINE - POS (A) [facility] MTD (METHADONE) - NEG [facility] OPIATES,URINE - [facility] NEG [facility] OXY (OXYCODONE) - NEG NEG [facility] PCP (PHENCYCLIDINE) NEG NEG [facility] PROPOXYPHENE (PPX) - NEG NEG [facility] TRICYCLIC NEG NEG [place] ANTIDEPRESSANTS - Comment: [facility] Drug Class ?Cutoff Concent [facility] Amphetamines (AMP) ?500 ng /ml Barbiturates [...] in the laboratory for 7 days. Specimen Narrative [facility] - 021 22:28 EDT Does PT Have a Latex Allergy? YES Performing Organization Address City/State/ZIP Code Phon e Number [facility] [address] [place] [address] documented in this encounter Visit Diagnoses Not on filedocumented in this encounter Care Teams Malt Liquors Sales Supervisor Relationship Specialty Start Date End Date Arnold Harrison MD PCP - General Family Medicine - Primary 04/30/[address] [place] [phone] Michaela Saldaña MD Obstetrics and Gynecology 04/08/21 [address] [facility], [address] [place] [address] Alee Cruz MD Child and Adolescent 04/08/21 Psychiatry Murali Burton MD Sports Medicine 04/08/21 Otoniel Coulter MD Ophthalmology 04/08/21 documented as of this encounter
--- OUTSIDE RECORDS SUMMARY | 2022-06-24 11:47 | XMS_ITS | Encounter Summary ---
:1998 Author Organization [facility] Address [address] [place] [address] Care Team Providers Name Role Phone Michaela Saldaña MD Unavailable Alee Cruz MD Unavailable Murali Burton MD Unavailable Otoniel Coulter MD Unavailable Arnold Harrison MD Primary Care Provider Reason for Visit Reason Onset Date Comments 05/01/2021 doesn't know what to do, was told we couldn't see pt because of Encounter Details Date Type Department Care Team Description 05/01/2021 Telephone [facility] [place] [place] Pr egnancy (doesn't know [facility] what to do, was told we [address] [facility] couldn[place] see [place] [address] [address], [address] of ) [phone] [place] [phone] Social History Tobacco Use Types Packs/Day Years Used Date Current Every Day Smoker Cigarettes 0.5 1 Smokeless Tobacco: Never Used Comments: 1/2 pack per day Alcohol Use Standard Drinks/Week Comments Not Currently [...] been in contact with No / Unsure 04/16/2021 9:44 EDT someone who was confirmed or suspected [...] Telephone Encounter - Naz Padilla RN - 05/01/2021 1155 EDT Noted; appt notes updated so front desk officer is aware pt's mother can attend. elephone Encounter - Lupe Mukherjee MD - 05/01/2021 1144 EDT That's fine. Perhaps it will help to focus conversation. (Last visit note with SG reviewed.) elephone Encounter - Naz Padilla RN - 05/01/2021 1059 EDT Called and spoke with pt's mother (ok per VALDEMAR). They attempted to transfer care to [facility], [place]; but after reviewing pt chart, they did not accept transfer. Pt is very overwhelmed with and didn't really feel like she understood the conversation regarding at her last appt with SG on 04/16/21. They cannot come in on Tuesday at the scheduled time. Appt r/s to with CH. Dr. Mukherjee - pt'smother would very much like to attend appt so that she can be a part of and understand the discussion about . I suggested Facetime during appt; she wanted me to ask if there was any way she could come in. Please advise. Thanks. elephone Encounter - Kya Troncoso - 05/01/2021 1012 EDT Pt is 34 weeks tomorrow, said she was initially seen by our practice but because pt wanted a she had to go somewhere else. Mom said they thought they found someone but was told that they could notsee pt. Mom is concerned because of how far along she is. Mom said pt went to the ED in [facility], and was told that pt was losing her mucus plug, and theygave her some fluids. Pt / mom states pt feels ok for a c/b Also, just looked looks as if pt has a visit with us on 05/05. I didn't notice before. Sorry. documented in this encounter Plan of Treatment Upcoming Encounters Date Type Specialty Care Team Description 06/25/2022 Telemedicine Family Medicine Chandrika Harrison MD Arrived [address] [place] [phone] (Wo rk) documented as of this encounter Visit Diagnoses Not on filedocumented in this encounter Care Teams Fig Washer Relationship Specialty Start Date End Date Arnold Harrison MD PCP - General Family Medicine - Primary 04/30/21 [address] [place] [phone] Michaela Saldaña MD Obstetrics and Gynecology 04/08/[address] [place] [address], [address] [place] [address] Alee Cruz MD Child and Adolescent 04/08/21 Psychiatry Murali Burton MD Sports Medicine 04/08/21 Otoniel Coulter MD Ophthalmology 04/08/21 documented as of this encounter
--- OUTSIDE RECORDS SUMMARY | 2022-06-24 11:47 | XMS_ITS | Encounter Summary ---
:1998 Author Organization [facility] Address [address] [place] [address] Care Team Providers Name Role Phone Michaela Saldaña MD Unavailable Alee Cruz MD Unavailable Murali Burton MD Unavailable Otoniel Coulter MD Unavailable Arnold Harrison MD Primary Care Provider Reason for Visit Reason Onset Date Comments Coordination Of Care 05/20/2021 Encounter Details Date Type Department Care Team Description 05/20/2021 Telephone [facility] - [facility] Client Services AssistantÁngela oordination Of Care [facility] [address] [place] [address] Social History Tobacco Use Types [...] this encounter Miscellaneous Notes Telephone Encounter - Shanon Land - 05/20/2021 1051 EDT DCF reports Kandi Bonner opened the case for pt and her baby and will plan a in home visit today, [place] in [place] still. cht encouraged DCF to check in on her tomorrow possibly. CHT called TA to getMedication update. Pt is accurate with her doses in the Epic chart and is still at 16 mg daily from TA. documented in this encounter Plan of Treatment Upcoming Encounters Date Type Specialty Care Team Description 06/25/2022 Telemedicine Family Medicine Chandrika Harrison MD Arrived [address] [place], [place] [phone] (Wo rk) documented as of this encounter Visit Diagnoses Not on filedocumented in this encounter Care Teams Dewaterer Operator Relationship Specialty Start Date End Date Arnold Harrison MD PCP - General Family Medicine - Primary 04/30/21 [address] [place] [phone] Michaela Saldaña MD Obstetrics and Gynecology 04/08/[address] [place] [address], [address] [place] [address] Alee Cruz MD Child and Adolescent 04/08/21 Psychiatry Murali Burton MD Sports Medicine 04/08/21 Otoniel Coulter MD Ophthalmology 04/08/21 documented as of this encounter
--- OUTSIDE RECORDS SUMMARY | 2022-06-24 11:47 | XMS_ITS | Encounter Summary ---
:1998 Author Organization [facility] Address [address] [place] [address] Care Team Providers Name Role Phone Michaela Saldaña MD Unavailable Alee Cruz MD Unavailable Murali Burton MD Unavailable Otoniel Coulter MD Unavailable Arnold Harrison MD Primary Care Provider Encounter Details Date Type Department Care Team Description 05/07/2021 Travel Social History Tobacco Use Types Packs/Day Years Used Date Current Every Day Smoker Cigarettes 0.5 1 Smokeless Tobacco: Never Used Comments: 1/2 pack per day, is trying to quit, pt declines smoking cessation counseling Alcohol Use Standard Drinks/Week Comments Not Currently 0 (1 standard drink = 0.6 oz pure alcoho l) socially, on hols Alcohol Habits Answer Date Recorded How often do you have a drink containing alcohol? Monthly or less 05/07/2021 How many drinks containing alcohol do you have on 1 or 2 05/07/2021 a typical day when you are drinking? How often do you have six or more drinks on one Never 05/07/2021 occasion? Comment: socially, on hols 12/11/2020 Intimate Partner Violence Answer Date Recorded [...] Family Medicine Chandrika Harrison MD Arrived [address] [place] [phone] (Wo rk) documented as of this encounter Visit Diagnoses Not on filedocumented in this encounter Care Teams Sleever Relationship Specialty Start Date End Date Arnold Harrison MD PCP - General Family Medicine - Primary 04/30/21 [address] [place] [phone] Michaela Saldaña MD Obstetrics and Gynecology 04/08/[address] [facility], [address] [place] [address] Alee Cruz MD Child and Adolescent 04/08/21 Psychiatry Murali Burton MD Sports Medicine 04/08/21 Otoniel Coulter MD [facility] 04/08/21 documented as of this encounter
--- OUTSIDE RECORDS SUMMARY | 2022-06-24 11:47 | XMS_ITS | Encounter Summary ---
:[address] [facility] Address [address] [place] [address] Care Team Providers Name Role Phone Michaela Saldaña MD Unavailable Alee Cruz MD Unavailable Murali Burton MD Unavailable Otoniel Coulter MD Unavailable Arnold Harrison MD Primary Care Provider Reason for Visit Reason Onset Date Comments Coordination Of Care 06/12/2021 Encounter Details Date Type Department Care Team Description 06/12/2021 Telephone [facility] ordination Of Care [facility] [place] [address] Social History Tobacco Use Types [...] this encounter Miscellaneous Notes Telephone Encounter - Deysi Whyte RN - 06/12/2021 1107 EDT Spoke with Katelyn nurse at [facility]. She confirmed that Marlo is taking Suboxone tablets 16 mg daily (two 8-2 mg tablets). Relayed this message verbally to Carina Weinberg CNM. elephone Encounter - Deysi Whyte RN - 06/12/2021 1058 EDT Called [facility] to confirm pt's Suboxone dose. Nurse unavailable to speak with at the time - paralegal legal secretary states she will have them call me back with this information. documented in this encounter Plan of Treatment Upcoming Encounters Date Type Specialty Care Team Description 06/25/2022 Telemedicine Family Medicine Chandrika Harrison MD Arrived [address] [place], [place] [phone] (Wo rk) documented as of this encounter Visit Diagnoses Not on filedocumented in this encounter Care Teams Rn Mds Relationship Specialty Start Date End Date Arnold Harrison MD PCP - General Family Medicine - Primary 04/30/21 [address] [place] [phone] Michaela Saldaña MD Obstetrics and Gynecology 04/08/[address] [place] [address], [address] [place] [address] Alee Cruz MD Child and Adolescent 04/08/21 Psychiatry Murali Burton MD Sports Medicine 04/08/21 Otoniel Coulter MD Ophthalmology 04/08/21 documented as of this encounter
--- OUTSIDE RECORDS SUMMARY | 2022-06-24 11:47 | XMS_ITS | Encounter Summary ---
:1998 Author Organization [facility] Address [address] [place] [address] Care Team Providers Name Role Phone Michaela Saldaña MD Unavailable Alee Cruz MD Unavailable Murali Burton MD Unavailable Otoniel Coulter MD Unavailable Arnlod Harrison MD Primary Care Provider Reason for Visit Reason Comments Telemedicine Phone Call Encounter Details Date Type Department Care Team Description 06/24/2021 Telemedicine [facility] - Nurse, [facility] 2 weeks [facility] Womens follow-up (Primary Dx) [address] [place] [address] Social History Tobacco Use Types [...] documented as of this encounter Progress Notes Yee Powell RN - 06/24/2021 0900 EDT until baby stopped. Breasts hard and not latching. Pt seeing today. Vag bleeding: heavy. Perineum swollen tender-has apt today. Baby sleeps well. Pt has mom and sister helping. No partner. Urine normal. Constipation-recommended colace BID, exercise and miralax. No SA. Does not want control-not SA. Home with baby. Adjusting well with 1 year old. No concerns with labor or delivery. No questions or concerns. Will see provider today for perineal issues and for breast issues. documented in this encounter Plan of Treatment Upcoming Encounters Date Type Specialty Care Team Description 06/25/2022 [facility] Family Medicine Chandrika Harrison MD Arrived [address] [place] [phone] (Wo rk) documented as of this encounter Visit Diagnoses Diagnosis 2 weeks follow-up - Primary documented in this encounter Discontinued Medications Medication Sig Discontinue Reason Start Date End Date cloNIDine HCL (CATAPRES) Take 0.2 mg by Patient Stopped Taking 04/2806/24/2021 0.2 mg tablet mouth at bedtime. promethazine (PHENERGAN) Take 1 Tab by Patient Stopped Taking 05/0706/24/2021 25 mg tabletIndications: mouth 2 times prevention of daily. post-operative nausea and vomiting documented as of this encounter Historical Medications This list may reflect changes made after this encounter. Medication Sig Dispensed Refills Start Date End Date ibuprofen (MOTRIN) 600 TAKE 1 TABLET BY 0 021 mg tablet MOUTH EVERY 6 HOURS NEEDED CRAMPING. yda-XO-JX-acetaminophen- TAKE 2 TABLETS BY 0 05/2806/25/2021 guaifn 8-2-14-325-200 mg MOUTH EVERY 6 HOURS (day/night) tablets, NEEDED FOR PAIN sequential added in this encounter Care Teams Consulting Sales Manager Relationship Specialty Start Date End Date Arnold Harrison MD PCP - General Family Medicine - Primary 04/30/21 [address] [place] [phone] Michaela Saldaña MD Obstetrics and Gynecology 04/08/21 [address] [facility], [address] [place] [address] Alee Cruz MD Child and Adolescent 04/08/21 Psychiatry Murali Burton MD Sports Medicine 04/08/21 Otoniel Coulter MD Ophthalmology 04/08/21 documented as of this encounter
--- OUTSIDE RECORDS SUMMARY | 2022-06-24 11:47 | XMS_ITS | Encounter Summary ---
:1998 Author Organization [facility] Address [address] [place] [address] Care Team Providers Name Role Phone Michaela Saldaña MD Unavailable Alee Cruz MD Unavailable Murali Burton MD Unavailable Otoniel Coulter MD Unavailable Arnold Harrison MD Primary Care Provider Reason for Visit Reason Onset Date Comments 05/14/2021 35 week ap- travel q uestion Encounter Details Date Type Department Care Team Description 05/14/2021 Telephone [facility] - Lupe Mukherjee Pr egnancy (35 week - [facility] travel question ) [address] [place] [address] [address], [address] [place] [address] (Wo rk) Social History Tobacco [...] Telephone Encounter - Naz Padilla RN - 05/14/2021 1146 EDT Called and spoke with pt; reviewed recommendation from Dr. Sow; pt upset. I suggested she discuss further at her appt tomorrow. I apologized and did again relay that we are sorry for her loss. elephone Encounter - Jyoti Sow MD - 05/14/2021 1119 EDT We dont recommend travel more than an hour away once is at 36 weeks. Im really sorry to hear about her loss. elephone Encounter - Naz Padilla RN - 05/14/2021 1026 EDT Chart reviewed - pt will be 36 wks on Tuesday. Pt will be going with her family; she would not be driving. It is a 4 hr car ride and then a ferry ride. They would leave Tuesday and come back Tuesday. Pt has appointment in office tomorrow Dr. Sow - please advise. Pt wants to know if it is ok to make this trip for her grandfather's . Thanks. elephone Encounter - Rosa Edmonds - 05/14/2021 1019 EDT [phone] 35 weeks ap Pt states her grandfather just - she wants to travel to [place]. She would be leaving Tuesday and returning Tuesday. Thanks! documented in this encounter Plan of Treatment Upcoming Encounters Date Type Specialty Care Team Description 06/25/2022 Telemedicine Family Medicine Chandrika Harrison MD Arrived [address] [place], [place] [phone] (Wo rk) documented as of this encounter Visit Diagnoses Not on filedocumented in this encounter Care Teams Kiln Packer Relationship Specialty Start Date End Date Arnold Harrison MD PCP - General Family Medicine - Primary 04/30/21 [address] [place] [phone] Michaela Saldaña MD Obstetrics and Gynecology 04/08/21 [address] [facility], [address] [place] [address] Alee Cruz MD Child and Adolescent 04/08/21 Psychiatry Murali Burton MD Sports Medicine 04/08/21 Otoniel Coulter MD Ophthalmology 04/08/21 documented as of this encounter
--- OUTSIDE RECORDS SUMMARY | 2022-06-24 11:47 | XMS_ITS | Encounter Summary ---
:[address] [facility] [place] Address [address] [place] [address] Care Team Providers Name Role Phone Michaela Saldaña MD Unavailable Alee Cruz MD Unavailable Murali Burton MD Unavailable Otoniel Coulter MD Unavailable Arnold Harrison MD Primary Care Provider Reason for Visit Reason Onset Date Comments Other 05/26/2021 Encounter Details Date Type Department Care Team Description 05/26/2021 Telephone [facility] [place] Bruce MD Other [facility] [address] [place], [place] [phone] [place] [address] [phone] Social History Tobacco Use Types Packs/Day Years [...] this encounter Miscellaneous Notes Telephone Encounter - Ventura Washington RN - 05/27/2021 1421 EDT Chart review completed with DCF. Medication lit, past appointments, and progress notes reviewed. DCFplans to contact Women's [facility] as well for some more information. elephone Encounter - Kasie Patel - 05/26/2021 1555 EDT Rashad from [facility] called to speak with a nurse in regards to patient. He can be reached tomorrow afternoon at [phone] signed by Kasie Patel at 05/26/2021 15:57 EDTdocumented in this encounter Plan of Treatment Upcoming Encounters Date Type Specialty Care Team Description 06/25/2022 Telemedicine Family Medicine Chandrika Harrison MD Arrived [address] [place], [place] [phone] (Wo rk) documented as of this encounter Visit Diagnoses Not on filedocumented in this encounter Care Teams Supervisor Finishing Room Relationship Specialty Start Date End Date Arnold Harrison MD PCP - General Family Medicine - Primary 04/30/21 [address] [place] [phone] Michaela Saldaña MD Obstetrics and Gynecology 04/08/[address] [place] [address], [address] [place] [address] Alee Cruz MD Child and Adolescent 04/08/21 Psychiatry Murali Burton MD Sports Medicine 04/08/21 Otoniel Coulter MD Ophthalmology 04/08/21 documented as of this encounter
--- OUTSIDE RECORDS SUMMARY | 2022-06-24 11:47 | XMS_ITS | Encounter Summary ---
:2000 Author Organization [facility] Address [address] [place] [address] Care Team Providers Name Role Phone Michaela Saldaña MD Unavailable Alee Cruz MD Unavailable Murali Burton MD Unavailable Otoniel Coulter MD Unavailable Arnold Harrison MD Primary Care Provider Encounter Details Date Type Department Care Team Description 06/08/2021 Travel Social History Tobacco Use Types Packs/Day [...] Telemedicine Family Medicine Chandrika Harrison MD Arrived [address] [place] [phone] (Wo rk) documented as of this encounter Visit Diagnoses Not on filedocumented in this encounter Care Teams Bar Helper Relationship Specialty Start Date End Date Arnold Harrison MD PCP - General Family Medicine - Primary 04/30/21 [address] [place] [phone] Michaela Saldaña MD Obstetrics and Gynecology 04/08/21 [address] [facility], [address] [place] [address] Alee Cruz MD Child and Adolescent 04/08/21 Psychiatry Murali Burton MD Sports Medicine 04/08/21 Otoniel Coulter MD [facility] 04/08/21 documented as of this encounter
--- OUTSIDE RECORDS SUMMARY | 2022-06-24 11:47 | XMS_ITS | Encounter Summary ---
:2000 Author Organization [facility] Address [address] [place] [address] Care Team Providers Name Role Phone Michaela Saldaña MD Unavailable Alee Cruz MD Unavailable Murali Burton MD Unavailable Otoniel Coulter MD Unavailable Arnold Harrison MD Primary Care Provider Encounter Details Date Type Department Care Team Description 06/10/[address] [facility] Michaela Saldaña MD [facility] [address] [facility] 130 [facility], [address] [place] [address] [place] [phone] (Wo rk) Social History Tobacco [...] Telemedicine Family Medicine Chandrika Harrison MD Arrived [address] [place] [phone] (Wo rk) documented as of this encounter Procedures Procedure Name Priority Date/Time Associated Comments Diagnosis COMPLETE BLOOD COUNT Routine 06/10/2021 19:55 Res ults for this WITH DIFFERENTIAL EDT procedure are in (AUTO) the results section. TYPE AND SCREEN Routine 06/10/2021 19:55 Results for this EDT procedure are i n the results section. documented in this encounter Results TYPE AND SCREEN (06/10/2021 19:55 EDT) BLOOD TYPE - [facility] A Positive [facility] Antibody Screen NEGATIVE [facility] Specimen Expires: 06-13-21 [id number] [facility] Comment: [facility] PATIENT'S RESPONSES INDICATE A HISTORY OF SURGERY, TRANSFUSION OR WITHIN THE LAST 3 MONTHS. FOR BLOOD PRODUCTS, THIS SPECIMEN WILL OUTDATE 72 HOUR S FROM THE TIME IT WAS COLLECTED. ??ANY BLOOD PRODUCTS ORDERE D AFTER 72 HOURS MUST BE WORKED UP ON A NEW SPECIMEN. Specimen Performing Organization Address City/State/ZIP Code Phon e Number [facility] [address] [place] [address] (ABNORMAL) COMPLETE BLOOD COUNT WITH DIFFERENTIAL (AUTO) (06/10/2021 19:55 EDT) Pathologist Sig nature ABSOLUTE NEUTROPHIL 8.0 2.2 - 8.85 [facility] COUN - [facility] 10e3/uL [facility] BASO # - [facility] 0.07 0.01 - 0.11 [facility] MED 10e/uL [facility] BASO % - [facility] 1 0 - 2 % [facility] EOS # - [facility] 0.20 0.03 - 0.61 [facility] 10e3/ul [facility] EOS % - [facility] 2 0 - 5 % [facility] GRAN % - CV 66.9 40 - 80 % [facility] HEMATOCRIT - [facility] 37.3 34.9 - 44.4 % [facility] HEMOGLOBIN - [facility] 12.7 11.6 - 15.2 [facility] g/dl [facility] IG# - [facility] 0.09 0 - 0.7 10e3/uL [facility] IG% - [facility] 0.8 0 - 0.9 % [facility] LYMPH # - [facility] 2.7 1.09 - 3.3 [facility] 10e3/ul [facility] LYMPH% - [facility] 22.9 20 - 40 % [facility] MEAN CORPUSCULAR HGB - 32.5 26.7 - 33.3 pg [facility]ENTER LAB MEAN CORPUSCULAR HGB 34.0 32.1 - 35.9 [facility] CONC - [facility] g/dL [facility] MEAN CELL VOLUME - 95.4 81 - 98 fl [facility] MONO # - [facility] 0.9 (H) 0.1 - 0.8 [facility] 10e3/uL [facility] MONO% - [facility] 7.1 0 - 12 % [facility] PLATELET COUNT 327 141 - 377 [facility] 10e3/ul [facility] RED BLOOD COUNT - [facility] 3.91 3.86 - 5.04 [facility] ME D 10e6/ul [facility] RED CELL DISTRI WIDTH 13.2 <14.7 % [facility] LAB WHITE BLOOD COUNT - 11.9 4.0 - 12.4 [facility] 10e3/ul [facility] Specimen Performing Organization Address City/State/ZIP Code Phon e Number [facility] [address] [place] [address] documented in this encounter Visit Diagnoses Not on filedocumented in this encounter Care Teams Drywall Hanger Helper Relationship Specialty Start Date End Date Arnold Harrison MD PCP - General Family Medicine - Primary 04/30/[address] [place] [phone] Michaela Saldaña MD Obstetrics and Gynecology 04/08/21 [address] [facility] [address] [place] [address] Alee Cruz MD Child and Adolescent 04/08/21 Psychiatry Murali Burton MD Sports Medicine 04/08/21 Otoniel Coulter MD Ophthalmology 04/08/21 documented as of this encounter
--- OUTSIDE RECORDS SUMMARY | 2022-06-24 11:47 | XMS_ITS | Encounter Summary ---
:2000 Author Organization [facility] Address [address] [place] [address] Care Team Providers Name Role Phone Michaela Saldaña MD Unavailable Alee Cruz MD Unavailable Murali Burton MD Unavailable Otoniel Coulter MD Unavailable Arnold Harrison MD Primary Care Provider Reason for Visit Reason Comments Routine Visit Encounter Details Date Type Department Care Team Description 05/22/2021 Routine [facility] - Jessenia Weinberg GA: 36w6d [facility] HALLEY Kramer 130 [facility] [address] [place] [address] [address], [address] [place] [address] (Wo rk) Social History [...] Sign Reading Time Taken Comments Blood Pressure 122/70 05/22/2021 1124 EDT Pulse - - Temperature - - Respiratory Rate - - Oxygen Saturation - - Inhaled Oxygen Concentration - - Weight 89.8 kg (198 lb) 05/22/2021 1124 EDT Height 172.7 cm (5' 7.99) 05/22/2021 1124 EDT Body Mass Index 30.11 05/22/2021 1124 EDT documented in this encounter Functional Status [...] documented as of this encounter Progress Notes Deysi Whyte RN - 05/22/2021 1320 EDT Marlo given a lab sheet to take to [facility] to get bloodwork drawn. Pt verbalized understanding of info. Indicated where to have results faxed. Jessenia Weinberg CNM - 05/22/2021 1320 EDT Chief Complaint Patient presents with ??? Routine Visit S: Marlo Lewis is a 21 y.o. at 36w6d here today for a routine visit. Patient [...] tablet, Take 0.2 mg by mouth at bedtime., Disp: , Rfl: ??? docusate sodium (COLACE) [...] if needed (Patient not taking: Reported on 05/22/2021), Disp: , Rfl: ??? traZODone (DESYREL) 150 mg tablet, Take 150 mg by mouth at bedtime. , Disp: , Rfl: ??? triamcinolone (KENALOG) 0.1 % cream, Apply to affected areas twice daily as needed, Disp: 45 g, Rfl: 1 O: Vitals: BP: 122/70 Height: 172.7 cm (67.99) Weight : 89.8 kg (198 lb) BMI: 30.176 Albumin: Negative Glucose: Negative Fundal Height (cm): 36 cm Heart Rate: 150 Movement: Present Presentation: Vertex A: 21 y.o. at 36w6d IUP 1. Previous delivery affecting 2. History of opioid abuse ([facility]) 3. Supervision of high risk in third trimester GROUP B STREP PCR 4. Depression affecting in second trimester, antepartum 5. Anxiety disorder affecting , antepartum 6. Tobacco use affecting in second trimester, antepartum P: Additional testing: Growth US today - KIMBERLEY 12.8 - EFW 6# 9 ounces (preliminary report) GC/CT/Trich repeated today GBS swab collected Living back home with her mother as of today in [facility] - feels supported from her family now Still needs Hep B antigen, HIV and RPR - wants to do in [facility] - order slip given and then will get records release next visit - she agreed to labs here if she does not get them drawn there within the week Term precautions reviewed. Follow-up for AP visit in 1 week, sooner PRN. documented in this encounter Miscellaneous Notes Addendum Note - Deysi Whyte RN - 05/22/2021 1320 EDT Addended by: DEYSI WHYTE on: 05/22/2021 13:51 Modules accepted: Orders documented in this encounter Plan of Treatment Upcoming Encounters Date Type Specialty Care Team Description 06/25/2022 Telemedicine Family Medicine Chandrika Harrison MD Arrived [address] [place], [place] [phone] (Wo rk) Scheduled Orders Name Type Priority Associated Diagnoses Order S chedule CHLAMYDIA/N. GONORRHOEAE Microbiology Routine Supervision of h igh Ordered: AMPLIFIED RNA risk in third trimester MISCELLANEOUS TEST, NON Lab Routine Supervision of hi gh Ordered: ANGULO risk in 05/22/2021 third trimester documented as of this encounter Procedures Procedure Name Priority Date/Time Associated Diagnosis Comme nts GROUP B STREP PCR Routine 05/22/2021 13:30 Supervision of high Results for this EDT risk in procedure are in third trimester the results section. documented in this encounter Results GROUP B STREP PCR (05/22/2021 13:30 EDT) Pathologist Sig nature GROUP B STREP PCR - Group B Strep [facility] Not-Detected by [facility]ENTER [facility] PCR GROUP B STREP PCR - [facility] GROUP B STREP PCR - Not Done [facility] Specimen Vaginal and Rectal - Douche with rectal and vaginal fittings (physical object) Performing Organization Address City/State/ZIP Code Phon e Number [facility] [address] [place] [address] documented in this encounter Visit Diagnoses Diagnosis Supervision of high risk in th ird trimester - Primary Unspecified high-risk Previous delivery affecting pre gnancy Previous delivery, unspecified as to episode of care or not applicable History of opioid abuse ([facility] ([facility]) Opioid abuse, in remission Depression affecting in second trimester, antepartum Anxiety disorder affecting , an tepartum Tobacco use affecting in secon d trimester, antepartum documented in this encounter Care Teams Store Stock Help Relationship Specialty Start Date End Date Arnold Harrison MD PCP - General Family Medicine - Primary 04/30/[address] [place] [phone] Michaela Saldaña MD Obstetrics and Gynecology 04/08/21 130 [facility], [address] [place] [address] Alee Cruz MD Child and Adolescent 04/08/21 Psychiatry Murali Burton MD Sports Medicine 04/08/21 Otoniel Coulter MD Ophthalmology 04/08/21 documented as of this encounter
--- OUTSIDE RECORDS SUMMARY | 2022-06-24 11:47 | XMS_ITS | Encounter Summary ---
:1998 Author Organization [facility] Address [address] [place] [address] Care Team Providers Name Role Phone Michaela Saldaña MD Unavailable Alee Cruz MD Unavailable Murali Burton MD Unavailable Otoniel Coulter MD Unavailable Arnold Harrison MD Primary Care Provider Reason for Visit Reason Onset Date Comments Other 05/23/2021 No movement Encounter Details Date Type Department Care Team Description 05/23/2021 Telephone [facility] - Yennifer Kwan O ther (No [facility] FUGITIVE INVESTIGATOR movement) [address] [place] [address] [facility], [address] [place] [address] Social History Tobacco Use Types [...] this encounter Miscellaneous Notes Telephone Encounter - Yennifer Kwan APRN - 05/23/2021 2009 EDT Paged by patient while broadcast operations manager. Reports that she is near [facility] and has not felt her baby move for about 8 hrs today. Has tried multiple things to get baby to move. No movement. She is not willing to go to the [facility] which is the closest hospital to her. Advised her to therefore come directly to [facility]. WACU notified. Yennifer Kwan CNM, SURVEILLANCE SUPERVISOR Certified Nurse Skein Winding Operator & Family Nurse Practitioner documented in this encounter Plan of Treatment Upcoming Encounters Date Type Specialty Care Team Description 06/25/2022 Telemedicine Family Medicine Chandrika Harrison MD Arrived [address] [place], [place] [phone] (Wo rk) documented as of this encounter Visit Diagnoses Not on filedocumented in this encounter Care Teams Armature Tester Relationship Specialty Start Date End Date Arnold Harrison MD PCP - General Family Medicine - Primary 04/30/21 [address] [place] [phone] Michaela Saldaña MD Obstetrics and Gynecology 04/08/[address] [place] [address], [address] [place] [address] Alee Cruz MD Child and Adolescent 04/08/21 Psychiatry Murali Burton MD Sports Medicine 04/08/21 Otoniel Coulter MD Ophthalmology 04/08/21 documented as of this encounter
--- OUTSIDE RECORDS SUMMARY | 2022-06-24 11:47 | XMS_ITS | Encounter Summary ---
:1998 Author Organization [facility] Address [address] [place] [address] Care Team Providers Name Role Phone Michaela Saldaña MD Unavailable Alee Cruz MD Unavailable Murali Burton MD Unavailable Otoniel Coulter MD Unavailable Arnold Harrison MD Primary Care Provider Encounter Details Date Type Department Care Team Description 06/13/2021 Results Only [facility] Jessenia Weinberg, [facility] [address] [place] [address] [address], [address] [place] [phone] (Wo rk) Social History [...] Telemedicine Family Medicine Chandrika Harrison MD Arrived [address] [place] [phone] (Wo rk) documented as of this encounter Procedures Procedure Name Priority Date/Time Associated Comments Diagnosis COMPLETE BLOOD COUNT Routine 06/13/2021 6:25 Resu lts for this WITH DIFFERENTIAL EDT procedure are in (AUTO) the results section. documented in this encounter Results (ABNORMAL) COMPLETE BLOOD COUNT WITH DIFFERENTIAL (AUTO) (06/13/2021 6:25 EDT) Pathologist Sig nature ABSOLUTE NEUTROPHIL 13.2 (H) 2.2 - 8.85 [facility] COUN - [facility] 10e3/uL [facility] BASO # - [facility] 0.11 0.01 - 0.11 [facility] 10e/uL [facility] BASO % - [facility] 1 0 - 2 % [facility] EOS # - [facility] 0.21 0.03 - 0.61 [facility] 10e3/ul [facility] EOS % - [facility] 1 0 - 5 % [facility] GRAN % - [facility] 70.5 40 - 80 % [facility] HEMATOCRIT - [facility] 34.3 (L) 34.9 - 44.4 % [facility] HEMOGLOBIN - [facility] 11.6 11.6 - 15.2 [facility] g/dl [facility] IG# - [facility] 0.13 0 - 0.7 10e3/uL [facility] IG% - [facility] 0.7 0 - 0.9 % [facility] LYMPH # - [facility] 3.8 (H) 1.09 - 3.3 [facility] 10e3/ul [facility] LYMPH% - [facility] 20.3 20 - 40 % [facility] MEAN CORPUSCULAR HGB 32.1 26.7 - 33.3 pg [facility] ME D - [facility] MEAN CORPUSCULAR HGB 33.8 32.1 - 35.9 [facility] CONC - [facility] g/dL [facility] MEAN CELL VOLUME - 95.0 81 - 98 fl [facility] MONO # - [facility] 1.3 (H) 0.1 - 0.8 [facility] 10e3/uL [facility] MONO% - [facility] 6.8 0 - 12 % [facility] PLATELET COUNT 280 141 - 377 [facility] 10e3/ul [facility] RED BLOOD COUNT - 3.61 (L) 3.86 - 5.04 [facility] 10e6/ul [facility] RED CELL DISTRI WIDTH 13.0 <14.7 % [facility] WHITE BLOOD COUNT - 18.8 (H) 4.0 - 12.4 [facility] 10e3/ul [facility] Specimen Performing Organization Address City/State/ZIP Code Phon e Number [facility] [address] [place] [address] documented in this encounter Visit Diagnoses Not on filedocumented in this encounter Care Teams Systems Qa Analyst Relationship Specialty Start Date End Date Arnold Harrison MD PCP - General Family Medicine - Primary 04/30/[address] [place] [phone] Michaela Saldaña MD Obstetrics and Gynecology 04/08/21 130 [facility], [address] [place] [address] Alee Cruz MD Child and Adolescent 04/08/21 Psychiatry Murali Burton MD Sports Medicine 04/08/21 Otoniel Coulter MD Ophthalmology 04/08/21 documented as of this encounter
--- OUTSIDE RECORDS SUMMARY | 2022-06-24 11:47 | XMS_ITS | Encounter Summary ---
:1998 Author Organization [facility] Address [address] [place] [address] Care Team Providers Name Role Phone Michaela Saldaña MD Unavailable Alee Cruz MD Unavailable Murali Burton MD Unavailable Otoniel Coulter MD Unavailable Arnold Harrison MD Primary Care Provider Reason for Visit Reason Onset Date Comments Coordination Of Care 05/24/2021 Complex mutual preg nant client on MAT Encounter Details Date Type Department Care Team Description 05/24/2021 Telephone [facility] - Yennifer Kwan C oordination Of Care [facility] [place] [place] [facility] ONLINE FACILITATOR (Complex mutual [address] client on MAT) [place] [address] [address], [address] [place] [address] Social History Tobacco Use Types [...] Telephone Encounter - Yennifer Kwan APRN - 05/25/2021 1133 EDT Greetings - I met this client this weekend for the first time. Just wanting to coordinate care and meds for this complex person who is now 37w2d. Next AP visit is later this week with Carina Weinberg CNM (copied here) Seen recently by PCP Arnold Harrison MD at [facility] (copied here) A FYI that today, I called her psychiatric provider Janneth Sweet and reviewed Marlo's hx and concern about the clonidine in . (release now on file) I shared Carolina Sanchez CNM, CHEESE SUPERVISOR's contact information and asked for her to please consult about ideal meds in . Given complexity - ideal if she has Carolina weigh in and support with med options/choices. She was recently been started on Gabapentin 300 mg TID by her PCP. If this med is absolutely needed - lowest possible dose please. [place] if there is no escalation in this medication prior to delivery. She is on MAT - so that is a consideration with the gabapentin as well. Certainly best if dose is not escalated prior to . Minimally effective dose best. If alternate approaches are possible for her back pain, that is ideal. I called JETHRO Salgado (her MAT provider) and spoke with Katelyn Butler, so they are aware that the gabapentin was added. Thanks! Telephone Encounter - Yennifer Kwan APRN - 05/24/2021 1316 EDT Seen in triage over the weekend. Have release of records to fax - front team to fax and scan to chart. Need to talk with Janneth Sweet - her prescriber at [facility] in [facility] regarding medication choices. [facility] Carolina Sanchez CNM, neuropsychology division chief happy to consult. Specific concern regarding polypharmacy - with Clonodine and recent addition of gabapentin by PCP. documented in this encounter Plan of Treatment Upcoming Encounters Date Type Specialty Care Team Description 06/25/2022 Telemedicine Family Medicine Chandrika Harrison MD Arrived [address] [place] [phone] (Wo rk) documented as of this encounter Visit Diagnoses Not on filedocumented in this encounter Care Teams Call Center Receptionist Relationship Specialty Start Date End Date Arnold Harrison MD PCP - General Family Medicine - Primary 04/30/21 [address] [place] [phone] Michaela Saldaña MD Obstetrics and Gynecology 04/08/21 130 [facility], [address] [place] [address] Alee Cruz MD Child and Adolescent 04/08/21 Psychiatry Murali Burton MD Sports Medicine 04/08/21 Otoniel Coulter MD Ophthalmology 04/08/21 documented as of this encounter
--- OUTSIDE RECORDS SUMMARY | 2022-06-24 11:47 | XMS_ITS | Encounter Summary ---
:1998 Author Organization [facility] Address [address] [place] [address] Care Team Providers Name Role Phone Michaela Saldaña MD Unavailable Alee Cruz MD Unavailable Murali Burton MD Unavailable Otoniel Coulter MD Unavailable Arnold Harrison MD Primary Care Provider Encounter Details Date Type Department Care Team Description 05/15/2021 Results Only [facility] - [facility] Jessenia Weinberg, [facility] [address] [place] [address] [address], [address] [place] [address] (Wo rk) Social History [...] Family Medicine Chandrika Harrison MD Arrived [address] [place] [phone] (Wo rk) documented as of this encounter Procedures Procedure Name Priority Date/Time Associated Diagnosis Comme nts DRUGS OF ABUSE Routine 05/15/2021 13:52 Results f or this SCREEN, URINE - EDT procedure ar e in [facility] the results section. documented in this encounter Results (ABNORMAL) DRUGS OF ABUSE SCREEN, URINE - [facility] (05/15/2021 13:52 EDT) AMPHETAMINES NEG NEG [facility] BARBITURATES,UR - NEG NEG [facility] BENZODIAZEPINES NEG NEG [facility] COCAINE,URINE - [facility] NEG NEG [facility] MAMP NEG NEG SARGENTS (METHAMPHETAMINES - [facility] MARIJUANA,URINE - POS (A) NEG [facility] MTD (METHADONE) - NEG NEG [facility] OPIATES,URINE - [facility]G NEG [facility] OXY (OXYCODONE) - NEG NEG [facility] PCP (PHENCYCLIDINE) NEG NEG SARGENTS - [facility] PROPOXYPHENE (PPX) - NEG NEG [facility] TRICYCLIC NEG NEG SARGENTS ANTIDEPRESSANTS - Comment: [facility] Drug Class ?Cutoff Concent ration CENTER [...] Organization Address City/State/ZIP Code Phon e Number [facility] [address] [place] [address] documented in this encounter Visit Diagnoses Not on filedocumented in this encounter Care Teams Lead Tinner Relationship Specialty Start Date End Date Arnold Harrison MD PCP - General Family Medicine - Primary 04/30/[address] [place] [phone] Michaela Saldaña MD Obstetrics and Gynecology 04/08/21 130 [facility], [address] [place] [address] Alee Cruz MD Child and Adolescent 04/08/21 Psychiatry Murali Burton MD Sports Medicine 04/08/21 Otoniel Coulter MD Ophthalmology 04/08/21 documented as of this encounter
--- OUTSIDE RECORDS SUMMARY | 2022-06-24 11:47 | XMS_ITS | Encounter Summary ---
:[address] [facility] Address [address] [place] [address] Care Team Providers Name Role Phone Michaela Saldaña MD Unavailable Alee Cruz MD Unavailable Murali Burton MD Unavailable Otoniel Coulter MD Unavailable Arnold Harrison MD Primary Care Provider Encounter Details Date Type Department Care Team Description 06/22/2021 [facility] Behavioral Team [facility], [facility] [address] [place] [address] Social History Tobacco Use Types [...] documented as of this encounter Progress Notes Mayi Oates LADC - 06/22/2021 1020 EDT Outpatient Behavioral Health Progress Note Date of Service: 06/29/2021 Primary Care Provider: Arnold Harrison Present Patient HPI: wellness visit via telemed. Subjective: Pt delivered her second child, baby naman Laureano, on 06/12/21. Pt said she and baby are doing well. She indicated she has good support from her mother. Pt said her older child is adjusting well to their new sibling. Pt said her mood is good and she does not have any immediate concerns. Pt said she is experiencing vaginal pain that is very concerning. She would like to speak with a nurse regarding her pain. Objective: Behavior: Appropriate Thought Process: Coherent Thought Content: Appropriate Risk: No suicidal, homicidal or violent ideations, No plan and No intent Speech: Normal Mood: Appropriate Affect: Normal Judgement: Good Insight: Appropriate Cognition: Normal Treatment: Active listening, allowed Pt to vent and process their experience. Offered infor/t resources for support including [facility] and [facility]. Plan: Communicate Pt's concerns to triage nurse. Schedule 6-week PP wellness visit after office visit with provider. Duration of Session: 10 Minutes Follow up appointment: Visit date not found documented in this encounter Plan of Treatment Upcoming Encounters Date Type Specialty Care Team Description 06/25/2022 [facility] Family Medicine Chandrika Harrison MD Arrived [address] [place] [phone] (Wo rk) documented as of this encounter Visit Diagnoses Not on filedocumented in this encounter Care Teams Roll Finisher Relationship Specialty Start Date End Date Arnold Harrison MD PCP - General Family Medicine - Primary 04/30/21 [address] [place] [phone] Michaela Saldaña MD Obstetrics and Gynecology 04/08/[address] [place] [address], [address] [place] [address] Alee Cruz MD Child and Adolescent 04/08/21 Psychiatry Murali Burton MD Sports Medicine 04/08/21 Otoniel Coulter MD Ophthalmology 04/08/21 documented as of this encounter
--- OUTSIDE RECORDS SUMMARY | 2022-06-24 11:47 | XMS_ITS | Encounter Summary ---
:1998 Author Organization [facility] Address [address] [place] [address] Care Team Providers Name Role Phone Michaela Saldaña MD Unavailable Alee Cruz MD Unavailable Murali Burton MD Unavailable Otoniel Coulter MD Unavailable Arnold Harrison MD Primary Care Provider Reason for Visit Reason Onset Date Comments Patient Information Update 05/29/2021 discuss this patient Coordination Of Care 05/29/2021 Encounter Details Date Type Department Care Team Description 05/29/2021 Telephone [facility] - Yennifer Kwan P atient Information [facility] FUEL CELL BUILDER Update (discuss this [address] patient); [place] [address] [facility], [address] Of Care [phone] [place] [phone] Social History Tobacco Use Types Packs/Day Years [...] this encounter Miscellaneous Notes Telephone Encounter - Jessenia Weinberg CNM - 05/29/2021 9911 EDT Spoke with Rashad at [facility] and a release needs to be sent over to discuss patient information. States it is not urgent and he will work on resending now. Telephone Encounter - Yessy Charlese - 05/29/2021 1355 EDT Please call Rashad to discuss this pt. At work, 8-4:30. documented in this encounter Plan of Treatment Upcoming Encounters Date Type Specialty Care Team Description 06/25/2022 Telemedicine Family Medicine Chandrika Harrison MD Arrived [address] [place], [place] [phone] (Wo rk) documented as of this encounter Visit Diagnoses Not on filedocumented in this encounter Care Teams Sisal Operator Relationship Specialty Start Date End Date Arnold Harrison MD PCP - General Family Medicine - Primary 04/30/21 [address] [place] [phone] Michaela Saldaña MD Obstetrics and Gynecology 04/08/[address] [place] [address], [address] [place] [phone] Alee Cruz MD Child and Adolescent 04/08/21 Psychiatry Murali Burton MD Sports Medicine 04/08/21 Otoniel Coulter MD Ophthalmology 04/08/21 documented as of this encounter
--- OUTSIDE RECORDS SUMMARY | 2022-06-24 11:47 | XMS_ITS | Encounter Summary ---
:1998 Author Organization [facility] Address [address] [place] [address] Care Team Providers Name Role Phone Michaela Saldaña MD Unavailable Alee Cruz MD Unavailable Murali Burton MD Unavailable Otoniel Coulter MD Unavailable Arnold Harrison MD Primary Care Provider Reason for Visit Reason Onset Date Comments 06/05/2021 rule out labor Encounter Details Date Type Department Care Team Description 06/05/2021 Telephone [facility] - Lupe Muhkerjee Pr egnancy (rule out [facility] labor) [address] [place] [address] [facility], [address] [place] [phone] (Wo rk) Social History Tobacco [...] this encounter Miscellaneous Notes Telephone Encounter - Drea Olmedo RN - 06/05/2021 0897 EDT Spoke w/pt who is reporting: Decreased movement (none since last night), nausea since last night, diarrhea, sharp rectal/vaginal pain that lasts for just a second but has some cramping that leadsup to each sharp pain. She also has epigastric pain that is a 7/10 and had some brown vaginal spotting yesterday. Pt denies SROM. Pt told to go directly to [facility] for evaluation. RN in [facility] notified and she will notify the vice president corporate communications team. Pt stated understanding and agrees w/plan. e elephone Encounter - Kya Troncoso - 06/05/2021 0832 EDT AP pt about 38 weeks, was not feeling well all night, cramping, sharp pain, feet and legs swollen. documented in this encounter Plan of Treatment Upcoming Encounters Date Type Specialty Care Team Description 06/25/2022 Telemedicine Family Medicine Chandrika Harrison MD Arrived [address] [place] [phone] (Wo rk) documented as of this encounter Visit Diagnoses Not on filedocumented in this encounter Care Teams Banquet Food Server Relationship Specialty Start Date End Date Arnold Harrison MD PCP - General Family Medicine - Primary 04/30/[address] [place] [phone] Michaela Saldaña MD Obstetrics and Gynecology 04/08/[address] [place] [address], [address] [place] [address] Alee Cruz MD Child and Adolescent 04/08/21 Psychiatry Murali Burton MD Sports Medicine 04/08/21 Otoniel Coulter MD Ophthalmology 04/08/21 documented as of this encounter
--- OUTSIDE RECORDS SUMMARY | 2022-06-24 11:47 | XMS_ITS | Encounter Summary ---
:1998 Author Organization [facility] Address [address] [place] [address] Care Team Providers Name Role Phone Michaela Saldaña MD Unavailable Alee Cruz MD Unavailable Murali Burton MD Unavailable Otoniel Coulter MD Unavailable Arnold Harrison MD Primary Care Provider Reason for Visit Reason Comments Other Encounter Details Date Type Department Care Team Description 06/18/2021 Refill [facility] - [facility] [place] [place] Arnold Bruce MD Other [facility] - [address] [place] [address] [place] [address] [place] [address] [phone] Social History Tobacco Use Types Packs/Day Years [...] Telephone Encounter - Charla Shankar MA - 06/19/2021 1628 EDT Patient scheduled for zoom visit on 06/25 and was told we cannot authorize any more fills on this medication until we see her for an appointment either in person or on zoom. She cannot physically come to the office as she does not have transportation so she agrees to zoom. elephone Encounter - Lupe Edward, RN - 06/19/2021 0903 EDT Pls call pt and find out if she requested this (might have been auto-refill request from pharmacy). If she still feel she needs this, pls schedule as per JE's instructions. elephone Encounter - Lupe Edward RN - 06/18/2021 1019 EDT DERRICK - 05/21/21 NOV - 06/25/21 Was given 30 days NR last month for sciatic pain; baby girl born on 06/12 - I don't know status. OK to refill? documented in this encounter Plan of Treatment Upcoming Encounters Date Type Specialty Care Team Description 06/25/2022 Telemedicine Family Medicine Chandrika Harrison MD Arrived [address] [place] [phone] (Wo rk) documented as of this encounter Visit Diagnoses Diagnosis Sciatica, right side - Primary documented in this encounter Care Teams Millstone Cleaner Relationship Specialty Start Date End Date Arnold Harrison MD PCP - General Family Medicine - Primary 04/30/21 [address] [place] [phone] Michaela Saldaña MD Obstetrics and Gynecology 04/08/21 130 [facility], [address] [place] [address] Alee Cruz MD Child and Adolescent 04/08/21 Psychiatry Murali Burton MD Sports Medicine 04/08/21 Otoniel Coulter MD Ophthalmology 04/08/21 documented as of this encounter
--- OUTSIDE RECORDS SUMMARY | 2022-06-24 11:47 | XMS_ITS | Encounter Summary ---
:[address] [facility] Address [address] [place] [address] Care Team Providers Name Role Phone Michaela Saldaña MD Unavailable Alee Cruz MD Unavailable Murali Burton MD Unavailable Otoniel Coulter MD Unavailable Arnold Harrison MD Primary Care Provider Reason for Visit Reason Comments Other Triage Encounter Details Date Type Department Care Team Description 06/05/2021 Office Visit [facility] - Alejandro Kwan ed movements in third trimester, single or unspecified fetus (Primary Dx); [facility] Yennifer, CASE MONITOR Previous delivery affecting pre gnancy; [address] History of opioid abuse ([facility]); [place] [address] [address], [address] Supervision of high risk in th ird trimester; [phone] [place], [place] Depression affe cting in second trimester, antepartum; [phone] Anxiety disorder affecting , an tepartum; [phone] Tobacco use aff ecting in second trimester, antepartum (Work) Social History Tobacco Use Types Packs/Day Years [...] Sign Reading Time Taken Comments Blood Pressure 139/76 06/05/2021 1139 EDT Pulse - - Temperature - - Respiratory Rate - - Oxygen Saturation - - Inhaled Oxygen Concentration - - Weight 93.9 kg (207 lb) 06/05/2021 1139 EDT Height 172.7 cm (5' 7.99) 06/05/2021 1139 EDT Body Mass Index 31.48 06/05/2021 1139 EDT documented in this encounter Functional Status [...] documented as of this encounter Progress Notes DunggriseldaYennifer oneill, GLORIA - 06/05/2021 0900 EDT Women's & Children's Triage Visit Subjective: Marlo Lewis is a 21 y.o. at 38w6d presenting with decreased movement after talking with the triage nurse. Reports vaginal pressure, trace brown spotting, intermittent contractions. Was having decreased FM, that has since resolved since being here on [facility]. Has had some looser BMs as well. Pt denies: headache, vision changes, vaginal bleeding, LOF or contractions. Pertinent Care Issues: 1) Previous x1 - @ 36 weeks for IUGR - desires TOLAC 2) Hx of Hep C - undetectable viral load 02/2021, viral load undetectable at 37 wks 3) Hx of Opioid Abuse - using Suboxone from street 8 mg at intake, [facility] program taking 16 mg BID 4) Tobacco Use 5) THC use daily 6) Depression, anxiety, bipolar, anger issues - psychiatric care with [facility], release on file 7) + Trichomonas - treated, HERBER neg, rpt at 30 wks and 36 wks all negative 8) Varicella non-immune 9) Will need pap in PP period 10) Social upheaval - partner back in senior living as of - CHT involved with this client 11) DCF report done: not engaging in MAT and + cocaine in her urine at treatment center - need UDS at visits (+MJ and cocaine @31 wks) Growth & Anatomy US: [ x ] [facility] [ ] Diagnostic Center Results: S = D, anterior placenta, normal KIMBERLEY, 3 VC, normal insertion, normal anatomy [ x ] 32 wk US growth (tobacco, MAT) - growth 35% (1855g), KIMBERLEY 13.4, cephalic, ant placenta [ x ] 36 wk US growth (tobacco, MAT) - prelim report - KIMBERLEY 12.8 - EFW 6# 9 ounces (preliminary report) Objective: Patient Vitals for the past 24 hrs: BP Height Weight 06/05/21 1139 139/76 172.7 cm (67.99) 93.9 kg (207 lb) Rpt BP 129/79 General: NAD, interactive Breathing unlabored Abd gravid, Vertex by Dara SVE: 1.5 / 70 / -2 but ballotable / soft and midline well-being: Non-Stress Test Baseline FHT 135 Moderate: variability Accelerations: present No late or variable decelerations Contractions rare 1. Decreased movements in third trimester, single or unspecified fetus 2. Previous delivery affecting 3. History of opioid abuse ([facility]) 4. Supervision of high risk in third trimester 5. Depression affecting in second trimester, antepartum 6. Anxiety disorder affecting , antepartum 7. Tobacco use affecting in second trimester, antepartum Assessment: 1. Marlo Lewis is a 21 y.o. at 38w6d 2. FWB: Reactive NST, Category I 3. Decreased FM has resolved Plan: 1. Reassurance about FWB. No red flags in hx or exam. Prodromal labor reviewed. Hold on membrane sweep until Tuesday appt with Dr. Mukherjee. IOL booked for next to Tue. Pt aware of 1900 2. Clear precautions reviewed and handout given 3. Follow up for regularly scheduled AP office visit 4. Call or see sooner PRN Yennifer Kwan CNM, APPLICATION COORDINATOR Certified Nurse Stock Associate & Family Nurse Practitioner documented in this encounter Plan of Treatment Upcoming Encounters Date Type Specialty Care Team Description 06/25/2022 Telemedicine Family Medicine Chandrika Harrison MD Arrived [address] [place] [phone] (Wo rk) documented as of this encounter Visit Diagnoses Diagnosis Decreased movements in third trime ster, single or unspecified fetus - Primary Previous delivery affecting pre gnancy Previous delivery, unspecified as to episode of care or not applicable History of opioid abuse ([facility] ([facility]) Opioid abuse, in remission Supervision of high risk in th ird trimester Unspecified high-risk Depression affecting in second trimester, antepartum Anxiety disorder affecting , an tepartum Tobacco use affecting in secon d trimester, antepartum documented in this encounter Care Teams Clothing Pattern Preparer Relationship Specialty Start Date End Date Arnold Harrison MD PCP - General Family Medicine - Primary 04/30/[address] [place] [phone] Michaela Saldaña MD Obstetrics and Gynecology 04/08/21 130 [facility], [address] [place] [address] Alee Cruz MD Child and Adolescent 04/08/21 Psychiatry Murali Burton MD Sports Medicine 04/08/21 Otoniel Coulter MD Ophthalmology 04/08/21 documented as of this encounter
--- OUTSIDE RECORDS SUMMARY | 2022-06-24 11:47 | XMS_ITS | Encounter Summary ---
:1998 Author Organization [facility] Address [address] [place] [address] Care Team Providers Name Role Phone Michaela Saldaña MD Unavailable Alee Cruz MD Unavailable Murali Burton MD Unavailable Otoniel Coulter MD Unavailable Arnold Harrison MD Primary Care Provider Encounter Details Date Type Department Care Team Description 05/08/2021 Orders Only [facility] - [facility] Cht Social Work er, [facility] Womens [address] [place] [address] Social History Tobacco Use Types [...] documented as of this encounter Progress Notes Shanon Land - 05/08/2021 1104 EDT CHT met with pt and went over her plans. CHt helped introduce [facility] to pt. Vernell come in today for the visit. Pt is hoping Alee will get out of incarceration soon and states Alee was only supposed to be in 90 days and not she is stuck there for 180 days. The advocate from the [facility] I helping to fight the extended sentence. Pt is attending TA and states it is going well. Pt mom is here today and happy to be at the to support pt. Pt is setting she iw will in the hotels for housing. Ptis documented in this encounter Plan of Treatment Upcoming Encounters Date Type Specialty Care Team Description 06/25/2022 Telemedicine Family Medicine Chandrika Harrison MD Arrived [address] [place], [place] [phone] (Wo rk) documented as of this encounter Visit Diagnoses Not on filedocumented in this encounter Care Teams Diesel Truck Technician Relationship Specialty Start Date End Date Arnold Harrison MD PCP - General Family Medicine - Primary 04/30/21 [address] [place] [phone] Michaela Saldaña MD Obstetrics and Gynecology 04/08/[address] [place] [address], [address] [place] [address] Alee Cruz MD Child and Adolescent 04/08/21 Psychiatry Murali Burton MD Sports Medicine 04/08/21 Otoniel Coulter MD Ophthalmology 04/08/21 documented as of this encounter
--- OUTSIDE RECORDS SUMMARY | 2022-06-24 11:47 | XMS_ITS | Encounter Summary ---
:2000 Author Organization [facility] Address [address] [place] [address] Care Team Providers Name Role Phone Michaela Saldaña MD Unavailable Alee Cruz MD Unavailable Murali Burton MD Unavailable Otoniel Coulter MD Unavailable Arnold Harrison MD Primary Care Provider Encounter Details Date Type Department Care Team Description 06/03/2021 Travel Social History Tobacco Use Types Packs/Day [...] Telemedicine Family Medicine Chandrika Harrison MD Arrived [address] [place] [phone] (Wo rk) documented as of this encounter Visit Diagnoses Not on filedocumented in this encounter Care Teams Physician/Internist Relationship Specialty Start Date End Date Arnold Harrison MD PCP - General Family Medicine - Primary 04/30/21 [address] [place] [phone] Michaela Saldaña MD Obstetrics and Gynecology 04/08/21 130 [facility], [address] [place] [address] Alee Cruz MD Child and Adolescent 04/08/21 Psychiatry Murali Burton MD Sports Medicine 04/08/21 Otoniel Coulter MD [facility] 04/08/21 documented as of this encounter
--- OUTSIDE RECORDS SUMMARY | 2022-06-24 11:47 | XMS_ITS | Encounter Summary ---
:2000 Author Organization [facility] Address [address] [place] [address] Care Team Providers Name Role Phone Michaela Saldaña MD Unavailable Alee Cruz MD Unavailable Murali Burton MD Unavailable Otoniel Coulter MD Unavailable Arnold Harrison MD Primary Care Provider Reason for Visit Reason Comments Routine Visit Encounter Details Date Type Department Care Team Description 06/03/2021 [facility] - Col ede Mukherjee MD GA: 38w4d [facility] 130 [facility] [address] [facility] [address], [address] [place] [address] [place] [address] (Wo rk) Social History Tobacco [...] Sign Reading Time Taken Comments Blood Pressure 132/78 06/03/2021 1121 EDT Pulse - - Temperature - - Respiratory Rate - - Oxygen Saturation - - Inhaled Oxygen Concentration - - Weight 93.3 kg (205 lb 11.2 oz) 06/03/2021 1121 EDT Height 172.7 cm (5' 7.99) 06/03/2021 1121 EDT Body Mass Index 31.28 06/03/2021 1121 EDT documented in this encounter Functional Status [...] encounter Progress Notes Lupe Mukherjee MD - 06/03/2021 1100 EDT [facility] Antepartum visit note S: Marlo Lewis is a 21 y.o. 38w4d. She reports good FM. She feels 'ready' but no symptomsof labor yet. Would be interested in membrane stripping or IOL after 39 weeks. She is pleased to report that she has been drug free for 5 weeks! O: Vitals: BP: 132/78 Height: 172.7 cm (67.99) Weight : 93.3 kg (205 lb 11.2 oz) BMI: 31.349 Albumin: Negative Glucose: Negative Fundal Height (cm): 39 cm Heart Rate: 140 Movement: Present Presentation: Vertex Outpatient Medications Marked as Taking for the 06/03/21 encounter (Routine ) with Lupe Mukherjee MD [...] areas twice daily as needed A/P:21 y.o. 38w4d seen for a follow up antepartum visit Problem List Items Addressed This Visit Supervision of high-risk Relevant Orders DRUG SCREEN, PRESCRIPTION/OTC, URINE History of opioid abuse ([facility]) Relevant Orders DRUG SCREEN, PRESCRIPTION/OTC, URINE Tobacco use affecting in second trimester, antepartum Depression affecting in second trimester, antepartum Anxiety disorder affecting , antepartum Previous delivery affecting Lupe Mukherjee MD 06/03/2021 13:30 [place] - 06/03/2021 1100 EDT Good FM No Loss of Fluid, losing mucus plug No Bleeding documented in this encounter Plan of Treatment Upcoming Encounters Date Type Specialty Care Team Description 06/25/2022 Telemedicine Family Medicine Chandrika Harrison MD Arrived [address] [place] [phone] (Wo rk) Scheduled Orders Name Type Priority Associated Diagnoses Order S chedule DRUG SCREEN, Lab Routine History of opioid abuse Orde red: 06/03/2021 PRESCRIPTION/OTC, URINE ([facility] ) Supervision of high risk in third trimester documented as of this encounter Visit Diagnoses Diagnosis Supervision of high risk in th ird trimester - Primary Unspecified high-risk Previous delivery affecting pre gnancy Previous delivery, unspecified as to episode of care or not applicable History of opioid abuse ([facility]) ([facility]) Opioid abuse, in remission Depression affecting in second trimester, antepartum Anxiety disorder affecting , an tepartum Tobacco use affecting in secon d trimester, antepartum documented in this encounter Care Teams Customer Service Attendant Relationship Specialty Start Date End Date Arnold Harrison MD PCP - General Family Medicine - Primary 04/30/[address] [place] [phone] Michaela Saldaña MD Obstetrics and Gynecology 04/08/21 [address] [facility], [address] [place] [address] Alee Cruz MD Child and Adolescent 04/08/21 Psychiatry Murali Burton MD Sports Medicine 04/08/21 Otoniel Coulter MD Ophthalmology 04/08/21 documented as of this encounter
--- OUTSIDE RECORDS SUMMARY | 2022-06-24 11:47 | XMS_ITS | Encounter Summary ---
:2000 Author Organization [facility] Address [address] [place] [address] Care Team Providers Name Role Phone Michaela Saldaña MD Unavailable Alee Cruz MD Unavailable Murali Burton MD Unavailable Otoniel Coulter MD Unavailable Arnold Harrison MD Primary Care Provider Reason for Visit Reason Onset Date Comments 06/03/2021 DCF calling for EV Encounter Details Date Type Department Care Team Description 06/03/2021 Telephone [facility] - Yennifer Kwan P regnancy (DCF calling [facility] PRESIDENT AND CMO for EV) [address] [place] [address] [facility], [address] [place] [address] Social History Tobacco Use Types [...] Notes Telephone Encounter - Shanon Land - 06/05/2021 1516 EDT I called KELLEY Solorzano. [facility] states he has already spoken to Yennifer and is not needing further information. Rashad plans to call back next week. elephone Encounter - Kya Troncoso - 06/05/2021 1030 EDT Rashad at [facility] called back he will be at work until about 4pm. [phone]. elephone Encounter - Yennifer Kwan APRN - 06/03/2021 1809 EDT Msg left for Rashad on number provider. Will await a call from him. elephone Encounter - Kya Troncoso - 06/03/2021 1346 EDT EV, please call Rashad from [facility]. ty documented in this encounter Plan of Treatment Upcoming Encounters Date Type Specialty Care Team Description 06/25/2022 Telemedicine Family Medicine Chandrika Harrison MD Arrived [address] [place], [place] [phone] (Wo rk) documented as of this encounter Visit Diagnoses Not on filedocumented in this encounter Care Teams Storeroom Supervisor Relationship Specialty Start Date End Date Arnold Harrison MD PCP - General Family Medicine - Primary 04/30/21 [address] [place] [address] Michaela Saldaña MD Obstetrics and Gynecology 04/08/21 130 [facility], [address] [place] [address] Alee Cruz MD Child and Adolescent 04/08/21 Psychiatry Murali Burton MD Sports Medicine 04/08/21 Otoniel Coulter MD Ophthalmology 04/08/21 documented as of this encounter
--- NOTE | 2022-06-24 11:48 | ED.GENADUL_ITS ---
Discharge Plan Disposition Patient Disposition: HOME Condition: Improving Discharge Details Clinical Impression: Right ankle sprain Primary Care Provider: Xavi Laurent ED Provider: Rodirguez Campuzano Home Meds and New Rx's Prescriptions: Continued triamcinolone acetonide 0.1 % cream 1 applic topical BID buprenorphine-naloxone 8-2 mg tablet, sublingual 3 tab sublingual DAILY olanzapine 7.5 mg tablet 7.5 mg PO DAILY lamotrigine 25 mg tablet 25 mg PO TID clonazepam 0.5 mg tablet 0.5 mg PO DAILY PRN gabapentin 600 mg tablet 600 mg PO TID methylphenidate HCl 20 mg tablet 60 mg PO DAILY Discharge Instructions Instructions: Ankle Sprain (ED) Additional Instructions: Elevate above the level of the heart to reduce pain and swelling. Wear walking boot while awake and out of bed for 7 to 10 days time. Crutches as needed 3 to 5 days time. Remove boot at bedtime and for bathing. Apply ice to area 20 minutes at a time to reduce pain and swelling 3. Tylenol and/or ibuprofen as needed for pain. Return to the ER for any acute concerns. Medical Decision Making 22-year-old female with slip and fall on the mild. Presents with right ankle swelling. Will consider ankle sprain versus underlying fracture. Patient given ice, ibuprofen, referred for x-ray. Patient does not have evidence of bony injury. Consistent with ankle sprain. Will place in walking boot with crutches. She will wean over 7 to 10 days time. She understands home care and indications to seek reevaluation HPI General Mode of arrival: ambulatory . Date/Time Provider Initiated Documentation: 06/24/22 11:42 . Limitations to Documentation: no limitations . Information obtained by: patient . History of Present Illness 22 year old F presents to the emergency department with the chief complaint of Right ankle pain and swelling, described as moderate, Quality is described as dull and constant, and is localized to the right and lower extremity. Patient reports no radiation. Patient started experiencing this minute(s) and it has been constant. Rest improves symptom(s), Movement worsens symptoms . Patient did receive the following treatments prior to arrival, none Related Data Home Medications Medication Instructions Recorded Confirmed buprenorphine 8 mg-naloxone 2 mg 3 tab sublingual DAILY 04/29/22 06/24/22 sublingual tablet clonazepam 0.5 mg tablet 0.5 mg PO DAILY PRN 04/29/22 06/24/22 gabapentin 600 mg tablet 600 mg PO TID 04/29/22 06/24/22 lamotrigine 25 mg tablet 25 mg PO TID 04/29/22 06/24/22 olanzapine 7.5 mg tablet 7.5 mg PO DAILY 04/29/22 06/24/22 triamcinolone acetonide 0.1 % 1 applic topical BID 04/29/22 06/24/22 topical cream methylphenidate HCl 20 mg tablet 60 mg PO DAILY 04/30/22 06/24/22 Allergies Allergy/AdvReac Type Severity Reaction Status Date / Time adhesive tape Allergy Intermediate Skin Rash/ Unverified 06/24/22 11:44 blisters latex AdvReac Unverified 06/24/22 11:44 General Stated Complaint: Orthopedic MARIALUISA: 4 Review of Systems Narrative: No other injury. No persistent numbness or weakness. Pain with weightbearing. 6 systems PFSH All Active Problems (Updated 06/24/22 @ 12:38 by Rodriguez Campuzano MD) Hepatitis C carrier (Acute) RNA quant and LFTs done 10/11/18 Depression (Acute 05/06/14) [facility] nabor - Dr Albright 04/10 Substance abuse (Acute 06/16/16) opiates, cocaine Tobacco dependence (Acute 11/28/15) Chronic mixed headache syndrome (Acute 09/13/13) Hepatitis C virus infection (Acute 04/01/17) Repeat testing 10/14 to determine chronic vs acute History of section (Chronic) 03/14/2018 at [facility]. 36w 1d for IUGR and breech presentation. Female weight 4 pounds 7 ounces (2090 g) Ovarian cyst (Acute) Osteochondritis dissecans of right talus (Acute) Dysuria (Acute) Cholelithiasis (Acute) Biliary colic (Acute) Hx of substance abuse (Acute) opiates, cocaine Right ankle sprain (Acute) Medical History Acne ADHD (attention deficit hyperactivity disorder) Anxiety Asthma Depression Depression (05/06/14) Dysuria (08/30/13) Eczema Encounter for insertion of intrauterine contraceptive device (06/07/14) Headache Hip pain (01/10/15) History of asthma (11/28/15) Hx of bipolar disorder Infertility (04/18/17) Inguinal hernia Insomnia Normal first in second trimester (12/13/17) School problem Substance abuse (06/16/16) Clean since 2018 UTI (urinary tract infection) Vision problem Surgical History section (03/14/18) [facility] for IUGR. PC/S for breech presentation. Not a candidate for ECV. Repair of inguinal hernia Repair of umbilical hernia (10/29/16) Tooth extraction Family History Mother Substance abuse Father Substance abuse [place] Substance abuse GRANDPARENT Substance abuse Essential hypertension Depression Heart disease Hyperlipidemia Neoplasm Asthma Social History Smoking/Tobacco Use Status: Current every day Tobacco Type: cigarettes Smoking packs per day: 1 Smoking cigarettes per day: 20.0 Quit status: considering quitting Counseling given: provider counseling Smoking risk assessment performed?: Yes Alcohol Intake: current Alcohol Intake frequency: holidays/special occasions only Drug use: Daily Substance use type: marijuana and prescription drug Counseling provided: treatment program and other Details: On Suboxone Do you feel safe at home: Yes (Mother in room, unable to assess privately) Do you feel safe in your relationship?: Yes Female Reproductive History Menstrual control method: none History History 2 Para 1 Hx # Term Pregnancies Multiple births Hx # Pregnancies Ectopic pregnancies AB induced Hx Number of Living Children AB spontaneous Exam Narrative Exam Narrative: GEN: awake, alert, oriented 3. Pleasant, well groomed, interactive. HEAD: Normocephalic, atraumatic ENT: Mucous membranes moist, oropharynx unremarkable, External ear exam unremarkable EYES: PERRL, EOMI NECK: Full ROM, no ALEXEY, no menigismus CHEST/RESP: No respiratory EXT: Full ROM, right ankle edematous and tender lateral greater than medial. 2+ DP, capillary refill less than 2 Neuro: Grossly normal neurologic exam, conversant, interactive. Psych: Speech fluent, thoughts congruent, affect normal Course Vital Signs Vital signs: Vital Signs Temperature 37.2 C 06/24/22 11:42 Pulse 89 06/24/22 11:42 Respiratory Rate 18 06/24/22 11:42 Blood Pressure 116/73 06/24/22 11:42 Pulse Oximetry 99 06/24/22 11:42 Temperature 37.2 C 06/24/22 11:42 Temperature Source Skin 06/24/22 11:42 Pulse 89 06/24/22 11:42 Respiratory Rate 18 06/24/22 11:42 Respiratory Effort Non-Labored 06/24/22 11:47 Blood Pressure 116/73 06/24/22 11:42 Blood Pressure Position Sitting 06/24/22 11:42 Pulse Oximetry 99 06/24/22 11:42 Oxygen Delivery Method Room Air 06/24/22 11:42 Oxygen Flow Rate 0 06/24/22 11:42 Pain Level 10 06/24/22 11:42
--- OUTSIDE RECORDS SUMMARY | 2022-06-24 11:48 | XMS_ITS | Encounter Summary ---
:2000 Author Organization [facility] Address [address] [place] [address] Care Team Providers Name Role Phone Sohan Winters MD Primary Care Provider [phone] Reason for Referral Consult (Routine) - Specialty Report Received Specialty Diagnoses / Procedures Referred By Contact Refer red To Contact Obstetrics & Gynecology Diagnoses Supervision of high risk in second trimester History of opioid abuse ([facility]) ([facility]) Anxiety Lupe Mukherjee MD [facility] [address], [address] [place], [place] [address] [place] [address] Phone: [phone] Referral ID Status Reason Start Expiration Visits Visits Date Date Requested Authorized [id number] Specialty Specialty 01/21/2021 1 1 Report Services Received Required Question Answer What areas would you like the CHT to Nutrition, Behavi oral Health, Medication focus on? Assisted Treatment, Tobacco Cessation, Painter Decorator Painter Decorator: Other What goals would you like the patient to , nee ds MAT, needs PCP and meet? psychiatric care Comments As we discussed in your visit today, yoli eone will be contacting you from the [facility] Team to schedule an gunner ointment with you. If you do not hear from the CHT within a week please call the [facility] Health Team at [facility]: [phone]. Reason for Visit Reason Comments Routine Visit Encounter Details Date Type Department Care Team Description 01/21/2021 Routine [facility] - Col ede Mukherjee MD GA: 17w [facility] [address], [address] [place] [address] [place] [address] (Wo rk) Social History Tobacco Use Types Packs/Day Years Used Date Current Every Day Smoker Cigarettes 0.5 1 Smokeless Tobacco: Never Used Tobacco Cessation: Ready to Quit: No; Co unseling Given: No Comments: 1/2 to 1 pack per day Alcohol Use Standard Drinks/Week [...] on file documented as of this encounter Last Filed Vital Signs Vital Sign Reading Time Taken Comments Blood Pressure 120/64 01/21/2021 1611 EST Pulse - - Temperature - - Respiratory Rate 16 01/21/2021 1611 EST Oxygen Saturation - - Inhaled Oxygen Concentration - - Weight 78.7 kg (173 lb 8 oz) 01/21/2021 1611 EST Height 172.7 cm (5' 7.99) 01/21/2021 1611 EST Body Mass Index 26.39 01/21/2021 1611 EST documented in this encounter Functional Status Functional [...] Sig Dispensed Refills Start Date End Date bisacodyL (DULCOLAX, Place 1 Suppository 5 Suppository 0 BISACODYL,) 10 mg rectally as needed suppositoryIndication for up to 5 doses s: Constipation for Constipation. during in second trimester docusate sodium Take 1 Cap by mouth 60 Cap 1 01/21/2021 (COLACE) 100 mg 2 times daily. capsuleIndications: Constipation during in second trimester promethazine Take 2 Tabs by mouth 30 Tab 1 01/21/2021 (PHENERGAN) 12.5 mg every 8 hours as tabletIndications: needed for up to 30 Nausea and vomiting days for Nausea. during documented in this encounter Progress Notes Lupe Mukherjee MD - 01/21/2021 1540 EST [facility] Antepartum visit note S: Marlo Lewis is a 20 y.o. 19w4d. She reports several concerns today - constipation, trouble sleeping, upper abdominal pain after eating, sciatica. Wants ultrasound due to upper abd pain but does not have time for exam or labs due to need to catch bus. O: Vitals: BP: 120/64 Height: 172.7 cm (67.99) Weight : 78.7 kg (173 lb 8 oz) BMI: 26.442 Heart Rate: 150 Outpatient Medications Marked as Taking for the 01/21/21 encounter (Routine ) with Lupe Mukherjee MD Medication Sig ??? buprenorphine-naloxone (SUBOXONE) 8-[address] 2 Film under the tongue daily. ??? ipratropium/albuterol sulfate (IPRATROPIUM-ALBUTEROL INHALATION) Inhale 2 Puffs as directed every 6 hours as needed. ??? PREPLUS 27 mg iron- 1 mg tablet tablet Take 1 Tab by mouth daily. ??? promethazine (PHENERGAN) 12.5 mg tablet Take 2 Tabs by mouth every 8 hours as needed for up to 30 days for Nausea. ??? [DISCONTINUED] promethazine (PHENERGAN) 12.5 mg tablet Take 1 Tab by mouth 2 times daily. ??? rizatriptan (MAXALT) 10 mg tablet Take 10 mg by mouth once as needed for Migraine. May repeat in2 hours if needed A/P:20 y.o. 19w4d seen for a follow up antepartum visit Declines exam or labs today. Saw CHT Plan to return for RUQ and OB ultrasound, labs, exam. 1. Supervision of high risk in second trimester Declined exam today Undecided re: genetic screening 2. History of opioid abuse ([facility]) Needs to be plugged into MAT. CHT involved 3. Anxiety Needs pcp or psych care 4. Previous delivery affecting Desires TOLAC 5. Hepatitis C virus infection without hepatic coma, unspecified chronicity Needs labs 6. Constipation during in second trimester - docusate sodium (COLACE) 100 mg capsule; Take 1 Cap by mouth 2 times daily. Dispense: 60 Cap; Refill: 1 - bisacodyL (DULCOLAX, BISACODYL,) 10 mg suppository; Place 1 Suppository rectally as needed for up to 5 doses for Constipation. Dispense: 5 Suppository; Refill: 0 7. Nausea and vomiting during - promethazine (PHENERGAN) 12.5 mg tablet; Take 2 Tabs by mouth every 8 hours as needed for up to 30days for Nausea. Dispense: 30 Tab; Refill: 1 Lupe Mukherjee MD 01/22/2021 8:33 rea Olmedo, RN - 01/21/2021 1540 EST No zika exposure, no vag bleeding, no loss of fluid. Is feeling baby move daily documented in this encounter Plan of Treatment Upcoming Encounters Date Type Specialty Care Team Description 06/25/2022 Telemedicine Family Medicine Chandrika Harrison MD Arrived [address] [place], [place] [phone] (Wo rk) Scheduled Referrals Name Type Priority Associated Diagnoses Order S chedule AMB CONS/FOLLOW UP Outpatient Referral Routine Supervision of high Expected: [facility] risk in 2020 TEAM second trimester (Approximate) History of opioid abuse ([facility]) Anxiety documented as of this encounter Visit Diagnoses Diagnosis Supervision of high risk in se cond trimester - Primary Unspecified high-risk History of opioid abuse ([facility]) ([facility]) Opioid abuse, in remission Anxiety Anxiety state, unspecified Previous delivery affecting pre gnancy Previous delivery, unspecified as to episode of care or not applicable Hepatitis C virus infection without hepa tic coma, unspecified chronicity Constipation during in second trimester Nausea and vomiting during RUQ abdominal pain Abdominal pain, right upper quadrant documented in this encounter Discontinued Medications Medication Sig Discontinue Reason Start Date End Date promethazine (PHENERGAN) Take 1 Tab by Reorder 01/07/2021 12.5 mg tablet mouth 2 times daily. documented as of this encounter Historical Medications This list may reflect changes made after this encounter. Medication Sig Dispensed Refills Start Date End Date buprenorphine-naloxone Place 2 Film under 0 03/06/2021 (SUBOXONE) 8-2 mg the tongue daily. sublingual filmIndications: 8 mg daily, acquires from roscoe added in this encounter Care Teams Wide Area Network Engineer Relationship Specialty Start Date End Date Sohan Winters MD PCP - General 11/13/14 04/29/21 [place] [address] documented as of this encounter
--- OUTSIDE RECORDS SUMMARY | 2022-06-24 11:48 | XMS_ITS | Encounter Summary ---
:2000 Author Organization [facility] Address [address] [place] [address] Care Team Providers Name Role Phone Sohan Winters MD Primary Care Provider [phone] Michaela Saldaña MD Unavailable Alee Cruz MD Unavailable Murali Burton MD Unavailable Otoniel Coulter MD Unavailable Reason for Visit Reason Onset Date Comments Other 04/14/2021 Encounter Details Date Type Department Care Team Description 04/14/2021 Telephone [facility] Yennifer Lovelace APRN Other [facility] [address] [facility] 130 [facility], [address] [place] [address] [place] [address] (Wo rk) Social History Tobacco [...] been in contact with No / Unsure 03/20/2021 13:43 EDT someone who was confirmed or suspected [...] encounter Miscellaneous Notes Telephone Encounter - Yennifer Kwan, GLORIA - 04/14/2021 0822 EDT TC with pt. Reviewed her negative trich result. She paged while I was signs and displays salesperson. Reports thick vaginal d/c that is white. No itching or foul odor. No change in sex partner. Her sex partner is incarcerated. Has AP visit later this week after US for growth. Sounds normal, physiologic, reassured. Advise care PRN if itching, smelly d/c. Yennifer Kwan CNM, COIL ASSEMBLER Certified Nurse Pharmaceutical Engineer & Family Nurse Practitioner documented in this encounter Plan of Treatment Upcoming Encounters Date Type Specialty Care Team Description 06/25/2022 Telemedicine Family Medicine Chandrika Harrison MD Arrived [address] [place], [place] [phone] (Wo rk) documented as of this encounter Visit Diagnoses Not on filedocumented in this encounter Care Teams Sales Representative Advertising Relationship Specialty Start Date End Date Sohan Winters, PCP - General 11/13/14 [address] [place] [address] Michaela Saldaña MD Obstetrics and Gynecology 04/08/[address] [place] [address], [address] [place] [address] Alee Cruz MD Child and Adolescent 04/08/21 Psychiatry Murali Burton MD Sports Medicine 04/08/21 Otoniel Coulter MD Ophthalmology 04/08/21 documented as of this encounter
--- OUTSIDE RECORDS SUMMARY | 2022-06-24 11:48 | XMS_ITS | Encounter Summary ---
:1998 Author Organization [facility] Address [address] [place] [address] Care Team Providers Name Role Phone Sohan Winters MD Primary Care Provider [phone] Michaela Saldaña MD Unavailable Alee Cruz MD Unavailable Murali Burton MD Unavailable Otoniel Coulter MD Unavailable Encounter Details Date Type Department Care Team Description 04/16/[address] [facility] Jessenia Weinberg, [facility] [address] [place] [address] [address], [address] [place] [address] (Wo rk) Social History [...] Telemedicine Family Medicine Chandrika Harrison MD Arrived [address] [place] [phone] (Wo rk) documented as of this encounter Procedures Procedure Name Priority Date/Time Associated Diagnosis Comme nts DRUGS OF ABUSE Routine 04/16/2021 10:40 Results f or this SCREEN, URINE - EDT procedure ar e in [facility] the results section. documented in this encounter Results (ABNORMAL) DRUGS OF ABUSE SCREEN, URINE - [facility] (04/16/2021 10:40 EDT) AMPHETAMINES NEG NEG [facility] BARBITURATES,UR - NEG NEG [facility] BENZODIAZEPINES NEG NEG [facility] COCAINE,URINE - [facility] POS (A) NEG [facility] MAMP NEG NEG [place] (METHAMPHETAMINES - [facility] MARIJUANA,URINE - POS (A) NEG [facility] MTD (METHADONE) - NEG NEG [facility] OPIATES,URINE - [facility] NEG NEG [facility] OXY (OXYCODONE) - NEG NEG [facility] PCP (PHENCYCLIDINE) NEG NEG [place] - [facility] PROPOXYPHENE (PPX) - NEG NEG [facility] TRICYCLIC NEG NEG [place] ANTIDEPRESSANTS - Comment: [facility] Drug Class ?Cutoff Concent ration [...] Organization Address City/State/ZIP Code Phon e Number [facility] [address] [place] [address] documented in this encounter Visit Diagnoses Not on filedocumented in this encounter Care Teams Kitchen Steward Relationship Specialty Start Date End Date Sohan Winters, PCP - General 11/13/14 1 [facility] [facility] [place] [id number] Michaela Saldaña MD Obstetrics and Gynecology 04/08/21 [address] [facility], [address] [place] [address] Alee Cruz MD Child and Adolescent 04/08/21 Psychiatry Murali Burton MD Sports Medicine 04/08/21 Otoniel Coulter MD Ophthalmology 04/08/21 documented as of this encounter
--- OUTSIDE RECORDS SUMMARY | 2022-06-24 11:48 | XMS_ITS | Encounter Summary ---
:1998 Author Organization [facility] Address [address] [place] [address] Care Team Providers Name Role Phone Sohan Winters MD Primary Care Provider [phone] Reason for Visit Reason Onset Date Comments Results 03/25/2021 Appointment Related 03/25/2021 Encounter Details Date Type Department Care Team Description 03/25/2021 Telephone [facility] - Melba Willis Res ults; Appointment [facility] RN Related [address] [place], [place] [id number] Social History Tobacco Use Types Packs/Day Years Used Date Current Every Day Smoker Cigarettes 0.5 1 Smokeless Tobacco: Never Used Comments: 1/2 to 1 pack per day [...] this encounter Miscellaneous Notes Telephone Encounter - Melba Willis RN - 03/30/2021 0852 EDT Has AP appointment with CG on 04/08/21 elephone Encounter - Melba Willis RN - 03/26/2021 1110 EDT Again attempted to reach patient, CRISTIAN on asking her to call clinic for results and to schedule next appointment. Phone number to clinic provided. elephone Encounter - Melba Willis RN - 03/25/2021 1522 EDT Attempted to reach patient, CRISTIAN on [facility] VM that I was call her with results and to schedule her next visit. Clinic phone number provided. elephone Encounter - Melba Willis RN - 03/25/2021 1520 EDT ----- Message from Michaela Saldaña MD sent at 03/25/2021 13:58 EDT ----- Please let pt know her resent lab results were nml. I don't see that she has her next AP visit scheduled, can you help her schedule that? Thanks! documented in this encounter Plan of Treatment Upcoming Encounters Date Type Specialty Care Team Description 06/25/2022 Telemedicine Family Medicine Chandrika Harrison MD Arrived [address] [place] [phone] (Wo rk) documented as of this encounter Visit Diagnoses Not on filedocumented in this encounter Care Teams Quahogger Relationship Specialty Start Date End Date Sohan Winters MD PCP - General 11/13/14 04/29/21 [address] [place] [address] documented as of this encounter
--- OUTSIDE RECORDS SUMMARY | 2022-06-24 11:48 | XMS_ITS | Encounter Summary ---
:2000 Author Organization [facility] Address [address] [place] [address] Care Team Providers Name Role Phone Sohan Winters MD Primary Care Provider [phone] Michaela Saldaña MD Unavailable Alee Cruz MD Unavailable Murali Burton MD Unavailable Otoniel Coulter MD Unavailable Reason for Referral Laboratory Services (Routine) - New Request Specialty Diagnoses / Procedures Referred By Contact Refer red To Contact Diagnoses Encounter to establish care with new doctor Arnold Harrison MD Procedures LIPID PROFILE (INCLUDES CHOLESTEROL, TRIGLYCERIDES, HDL, LDL) [address] [place] [phone] Referral ID Status Reason Start Date Expiration Date Visits V isits Requested Authorized [id number] New Request 04/17/2021 1 1 aboratory Services (Routine) - New Request Specialty Diagnoses / Procedures Referred By Contact Refer red To Contact Diagnoses Encounter to establish care with new doctor Arnold Harrison MD Procedures COMPREHENSIVE METABOLIC PANEL (CMP) [address] [place] [address] Referral ID Status Reason Start Date Expiration Date Visits V isits Requested Authorized [id number] New Request 04/17/2021 1 1 Reason for Visit Reason Comments Establish Care Encounter Details Date Type Department Care Team Description 04/17/2021 Telemedicine [facility] - Arnold Harrison En counter to establish care with new doctor (Primary Dx); [facility] Emma Jones MD Supervision of high risk in se cond trimester; Family Medicine - [address] Vision loss of right eye; SARANYA Wang Anxiety disorder affecting p regnancy, antepartum; [address] [phone] Depression affecting in second trimester, antepartum; SARANYA Funes [id number] History of opioid abuse ([facility]); Tobacco use affecting in secon d trimester, antepartum; Asthma, u nspecified asthma severity, unspecified whether complicated, unspecified whether persistent; Need for vaccin ation Social History Tobacco Use Types Packs/Day Years [...] documented as of this encounter Progress Notes Arnold Harrison MD - 04/17/2021 0915 EDT [facility] Video Visit Today's visit was provided through [...] or auxiliary staff: Yes Subjective: Chief Complaint(s): No chief complaint on file. HPI: Marlo notes that she has a lot of mental health issues. She has a history of bipolar, ADHD. Right now her MAT provider is prescribing her bipolar medications until she is able to get in to see a psychiatrist. Being it has been very hard to not be on medications. She has been having a hard time getting into [facility] and they are booking into May to see a psychiatric prescriber. Dr. Shaikh said he would prescribe the medications until she is able to get in to see someone. She also has a 3 year old daughter named Trinity Ann. Her sister adopted her daughter. When she was a kid growing up she had a lot of anger, she lashed out a lot and had many relationship problems. Her real father was an alcoholic and a drug addict and always in and out of long term. When she was 2 or 3 her step dad came into her life. About a year ago he her mom and that has been a good stabilizing part of her. Her plan is the keep this baby. Her fiance is a woman and she is currently incarcerated. Her fiance hasa criminal history and she has been with her for the last 3 years. She helps her stay clean and sober. They decided They want to raise the baby. She has been using cocaine recently but is avoiding heroin. Prior to MAT when she was 16 she used heroin IV. She started SOM at age 17 and MAT has been a big help to her. Now she goes to treatment associates in [place]. She goes to a group meeting every Tuesday morning. 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 It's been there since 5th grade. She has an eye appointment coming up. She doesn't remember the last time she had blood drawn other than with . She is living in [facility] right now and plans to have the baby there. She is planning to live in [facility] as soon as she has the baby. She is planning to go to [place], [place] for a . She is due June 13. I have reviewed patient's tobacco history: reports that she has been smoking cigarettes. She has a 0.50 pack-year smoking history. She has never used smokeless tobacco. I have reviewed current problem list and current medications. Objective: Examination: Home Vitals: LMP (LMP Unknown) GENERAL APPEARANCE: no acute distress, pleasant, cooperative. HEENT: NCAT, anicteric sclera. NECK: No masses noted, trachea midline CHEST: normal shape and expansion. SKIN: warm & dry. FACE: no lesions. NEUROLOGIC EXAM: alert & oriented Data reviewed with patient: Reviewed and/or ordered active problem list, medication list, allergies tests Assessment & Plan: 1. Encounter to establish care with new doctor COMPREHENSIVE METABOLIC PANEL (CMP) LIPID PROFILE (INCLUDES CHOLESTEROL, TRIGLYCERIDES, HDL, LDL) 2. Supervision of high risk in second trimester 3. Vision loss of right eye 4. Anxiety disorder affecting , antepartum 5. Depression affecting in second trimester, antepartum 6. History of opioid abuse ([facility]) 7. Tobacco use affecting in second trimester, antepartum 8. Asthma, unspecified asthma severity, unspecified whether complicated, unspecified whether persistent 9. Need for vaccination Ms. Lewis is a very pleasant 21 year old woman with a history of substance use disorders and bipolardisorder who is being followed by [facility]. She [place] [facility] and isestablishing care today. 1. Establish care, reviewed office protocols, hours, etc. 2. Continue follow up with OB, high risk due to FRANCHESCA and . 3. Follow up with ophthalmology 4. Continue follow up with [facility], hopefully will be able to establish with psychiatry soon. 5. As above 6. As above, continue care at treatment associates 7. As above 8. Stable, continue current treatment 9. Work on vaccination as needed I spent a total of 40 minutes in review of the chart and discussion with the patient as described inthe progress note. The following individuals and their role did participate in today's encounter visit: Provider: Arnold Harrison MD Patient TBCharla norwood MA - 04/17/2021 0915 EDT PRE-VISIT PLANNING- Advance Directive- None on file. Outside Information Reconciled?- Yes Controlled Medications- None Date of last CSA- N/A DUE FOR IN - Health Maintenance Due Topic ??? Pneumococcal Immunization (1 of 2 - PPSV23)- Dx of asthma. LABS/POCT/PROCEDURES DUE FOR (BY PROBLEM LIST)- No CMP or Lipid on file. VISIT NOTES- Pharmacy verified. [id number] - [place], [place] - [address] [place] [address] AT SEC OF [facility] [address] [facility] [phone] [id number] - [place] [address] [facility] [address] [facility] [phone] eIrena yusuf RN - 04/17/2021 0915 EDT Complicated patient with several different issues Housing security? Opioid Abuse being treated with Suboxone Tobacco abuse disorder (1/2 ppd) ?Asthma diagnosis not found in previous dx but patient with rescue inhaler Immunizations: COVID Vaccine PPSV23 Vaccine due to asthma and this high risk patient sometime PCV13 is also administered to asthma patients and could be considered (min interval 8 weeks apart) It appears management architect through telemed with Dr. Alee Cruz but patient no showed her last scheduled appointment 01/2021 and no future appointments scheduled. documented in this encounter Plan of Treatment Upcoming Encounters Date Type Specialty Care Team Description 06/25/2022 Telemedicine Family Medicine Chandrika Harrison MD Arrived [address] [place] [phone] (Wo rk) Scheduled Orders Name Type Priority Associated Diagnoses Order S chedule COMPREHENSIVE METABOLIC Lab Routine Encounter to raphael erickson Ordered: 04/17/2021 PANEL (CMP) care with new doctor LIPID PROFILE (INCLUDES Lab Routine Encounter to raphael erickson Ordered: 04/17/2021 CHOLESTEROL, TRIGLYCERIDES, care with new doctor HDL, LDL) documented as of this encounter Visit Diagnoses Diagnosis Encounter to establish care with new doc tor - Primary Other reasons for seeking consultation Supervision of high risk in se cond trimester Unspecified high-risk Vision loss of right eye Unqualified visual loss, one eye Anxiety disorder affecting , an tepartum Depression affecting in second trimester, antepartum History of opioid abuse ([facility]) ([facility]) Opioid abuse, in remission Tobacco use affecting in secon d trimester, antepartum Asthma, unspecified asthma severity, uns pecified whether complicated, unspecified whether persistent Need for vaccination Need for prophylactic vaccination and in oculation against unspecified single disease documented in this encounter Historical Medications This list may reflect changes made after this encounter. Medication Sig Dispensed Refills Start Date End Date FLUoxetine (PROZAC) 40 mg Take 40 mg by mouth 0 05/05/2021 capsule daily. added in this encounter Care Teams Food Server Relationship Specialty Start Date End Date Sohan Winters, PCP - General 11/13/14 [address] [place], [place] [phone] Michaela Saldaña MD Obstetrics and Gynecology 04/08/[address] [place] [address], [address] [place] [address] Alee Cruz MD Child and Adolescent 04/08/21 Psychiatry Murali Burton MD Sports Medicine 04/08/21 Otoniel Coulter MD Ophthalmology 04/08/21 documented as of this encounter
--- OUTSIDE RECORDS SUMMARY | 2022-06-24 11:48 | XMS_ITS | Encounter Summary ---
:2000 Author Organization [facility] Address [address] [place] [address] Care Team Providers Name Role Phone Sohan Winters MD Primary Care Provider [phone] Reason for Visit Reason Onset Date Comments Appointment Related 01/02/2021 Encounter Details Date Type Department Care Team Description 01/02/2021 Telephone [facility] - Jessenia Weinberg Appo intment Related [facility] JR Kramer [address] [facility] [address] [place] [address] [address], [address] [place] [address] (Wo rk) Social History Tobacco [...] been in contact with No / Unsure 12/11/2020 10:17 EST someone who was confirmed or suspected to [...] Telephone Encounter - Jessenia Weinberg CNM - 01/07/2021 1437 EST Refilled for just 7 days - Marlo needs to come in to finish IVAP and receive care elephone Encounter - Deysi Whyte RN - 01/07/2021 1421 EST Called and reached Marlo. Pt states she was feeling ill and missed her last appt. Rescheduled her to Tuesday, 01/09 at 14:20. Pt states she is doing well, no concerns other than N/V daily. Pt states she ran out of Phenergan and is wondering if that can be refilled - if not, she states she will manage until 01/09. Informed pt that I would call back if provider fills this for her. Pt uses [employer] [facility] in [place], [place]. elephone Encounter - Jessenia Weinberg CNM - 01/02/2021 1416 EST Marlo was another no show today for her appointment . documented in this encounter Plan of Treatment Upcoming Encounters Date Type Specialty Care Team Description 06/25/2022 Telemedicine Family Medicine Chandrika Harrison MD Arrived [address] [place] [phone] (Wo rk) documented as of this encounter Visit Diagnoses Not on filedocumented in this encounter Care Teams General Agent Relationship Specialty Start Date End Date Sohan Winters MD PCP - General 11/13/14 04/29/21 [address] [place] [address] documented as of this encounter
--- OUTSIDE RECORDS SUMMARY | 2022-06-24 11:48 | XMS_ITS | Encounter Summary ---
:1998 Author Organization [facility] Address [address] [place] [address] Care Team Providers Name Role Phone Sohan Winters MD Primary Care Provider [phone] Reason for Visit Reason Onset Date Comments Follow-up 02/23/2021 Encounter Details Date Type Department Care Team Description 02/23/2021 Telephone [facility] Johnna Shaffer Follow-up Family Medicine - [address] [place] [address] [place] [address] [phone] (Wo rk) Social History Tobacco Use Types [...] this encounter Miscellaneous Notes Telephone Encounter - Johnna Perea - 02/23/2021 1547 EDT Churn Operator called pt, spoke with pt, discussion about following needs and plans: 1) Psychotropic medication prescriptions: Pt indicated she knows she needs this, Dr. Shaikh at agreed to prescribe until PCP or psychiatric provider is assigned. PLAN: speech writer will f/u w/[facility] about re-referral to Dr. Cruz? 2) [facility]: [facility]; 3) Pt in need of a dentist: PLAN: speech writer will consult w/[facility] re making referral for [facility] 4) F/u with [facility]: PLAN: pt will call [facility] to reschedule ultrasound 5) Pt and speech writer will talk 02/27/21 to [facility] in person session for further f/u. documented in this encounter Plan of Treatment Upcoming Encounters Date Type Specialty Care Team Description 06/25/2022 Telemedicine Family Medicine Chandrika Harrison MD Arrived [address] [place] [phone] (Wo rk) documented as of this encounter Visit Diagnoses Not on filedocumented in this encounter Care Teams Finish Remover Relationship Specialty Start Date End Date Sohan Winters MD PCP - General 11/13/14 04/29/21 [address] [place] [address] documented as of this encounter
--- OUTSIDE RECORDS SUMMARY | 2022-06-24 11:48 | XMS_ITS | Encounter Summary ---
:1998 Author Organization [facility] Address [address] [place] [address] Care Team Providers Name Role Phone Sohan Winters MD Primary Care Provider [phone] Encounter Details Date Type Department Care Team Description 02/18/2021 Orders Only [facility] - [facility] Cht Social Work er, [facility] [address] [place] [address] Social History Tobacco Use Types [...] this encounter Progress Notes Shanon Land - 02/18/2021 0937 EDT CHT called TA and found that pt is having trouble with her Treatment and ran out of meds for treatment to quickly. TA is also concerned about a pysch medication that she is taking but it not prescribedto take by a provider. TA intends to look into this and work with pt on help for this matter. Pt is to have a call with the Doctor today to talk about her meds and Doctor will bring up the general statement that lack of care will trigger DCF to get involved. documented in this encounter Plan of Treatment Upcoming Encounters Date Type Specialty Care Team Description 06/25/2022 Telemedicine Family Medicine Chandrika Harrison MD Arrived [address] [place] [phone] (Wo rk) documented as of this encounter Visit Diagnoses Not on filedocumented in this encounter Care Teams Veneer Stapler Relationship Specialty Start Date End Date Sohan Winters MD PCP - General 11/13/14 04/29/21 [place] [address] documented as of this encounter
--- OUTSIDE RECORDS SUMMARY | 2022-06-24 11:48 | XMS_ITS | Encounter Summary ---
:1998 Author Organization [facility] Address [address] [place] [address] Care Team Providers Name Role Phone Sohan Winters MD Primary Care Provider [phone] Reason for Visit Reason Onset Date Comments Results 02/19/2021 u/s Encounter Details Date Type Department Care Team Description 02/19/2021 Telephone [facility] Jessenia Weinberg, Results (u/s) [facility] [address] [place] [address] [address], [address] [place] [address] (Wo rk) Social History [...] Telephone Encounter - Drea Olmedo RN - 02/27/2021 1608 EDT L/M w/pt's mother for pt to call the office. Pt's number confirmed by her mother. Telephone Encounter - Jerilyn Juarez RN - 02/27/2021 1452 EDT Pt called and no VM set up and unable to leave a message. elephone Encounter - Yee Powell RN - 02/19/2021 1500 EDT No answer/no voicemail. elephone Encounter - Yee Powell, RN - 02/19/2021 1228 EDT No answer, no voicemail. Pt needs apt as soon as we can get her in. elephone Encounter - Jerilyn Charles - 02/19/2021 1149 EDT Would like results of u/s and wants to know when she should come in next. New phone. 24 weeks . documented in this encounter Plan of Treatment Upcoming Encounters Date Type Specialty Care Team Description 06/25/2022 Telemedicine Family Medicine Chandrika Harrison MD Arrived [address] [place] [phone] (Wo rk) documented as of this encounter Visit Diagnoses Not on filedocumented in this encounter Care Teams Construction Contractor Relationship Specialty Start Date End Date Sohan Winters MD PCP - General 11/13/14 04/29/21 [address] [place] [address] documented as of this encounter
--- OUTSIDE RECORDS SUMMARY | 2022-06-24 11:48 | XMS_ITS | Encounter Summary ---
:1998 Author Organization [facility] Address [address] [place] [address] Care Team Providers Name Role Phone Sohan Winters MD Primary Care Provider [phone] Michaela Saldaña MD Unavailable Alee Cruz MD Unavailable Murali Burton MD Unavailable Otoniel Coulter MD Unavailable Arnold Harrison MD Primary Care Provider Dunia Dejesus Unavailable Encounter Details Date Type Department Care Team Description 12/11/2020 Results Only [facility] - Carina Weinberg [facility] Resul jennifer Kramer CNM [address] [place] [address] [facility], [address] [place] [address] (Wo rk) Social History Tobacco [...] Family Medicine Chandrika Harrison MD Arrived [address] [place] [phone] (Wo rk) documented as of this encounter Procedures Procedure Name Priority Date/Time Associated Comments Diagnosis US OB FIRST TRIMESTER 12/12/2020 16:13 Re sults for this (LESS THAN 14 WEEKS) EST procedu re are in TRANSABDOMINAL the results section. documented in this encounter Results US OB FIRST TRIMESTER (LESS THAN 14 WEEKS) TRANSABDOMINAL (12/12/2020 16:13 EST) Specimen Narrative [facility] - 12/12/2020 16:13 EST ? EXAM: ULTRASOUND/OB-LEVEL 1 (TRANSABDOMIN EX. D/ (1038) ? CLINICAL INFORMATION: ? Z33.1 INCIDENTAL ? See attached report. ??Report als o available in PACS. ? CLINICAL DERMATOLOGIST:charlotte ?Reported B y: Mohan Kline MD ? CC: ? Transcribed Date/Time: 12/12/2020 (1613) ? District Sales Leader: MELISSA ? Printed Date/Time: 12/12/2020 (16 13) ? PAGE 1 ? Clemencia d Report ? Procedure Note Mohan Kline MD - 1 EXAM: ULTRASOUND/OB-LEVEL 1 (TRANSABDOM IN EX. D/ (1038) CLINICAL INFORMATION: Z33.1 INCIDENTAL See attached report. Report also availa ble in PACS. CLINICAL DERMATOLOGIST:charlotte Reported By: Mohan Kline MD CC: Transcribed Date/Time: 12/12/2020 (5403 ) District Sales Leader: MELISSA Printed Date/Time: 12/12/2020 (6261) PAGE 1 Signed Report Performing Organization Address City/State/ZIP Code Phon e Number [facility] documented in this encounter Visit Diagnoses Not on filedocumented in this encounter Care Teams Steel Die Press Set Up Operator Relationship Specialty Start Date End Date Sohan Winters, PCP - General 11/13/14 1 MD [address] [place], [place] [phone] Arnold Harrison MD PCP - General Family Medicine - Primary 04/30/[address] [place] [phone] Michaela Saldaña MD Obstetrics and Gynecology 04/08/21 [address] [facility] [address] [place] [address] Alee Cruz MD Child and Adolescent 04/08/21 Psychiatry Muarli Burton MD Sports Medicine 04/08/21 Otoniel Coulter MD Ophthalmology 04/08/21 Dunia Dejesus Laboratory [facility] 02/18/22 [address] [facility] [address] [place] [address] documented as of this encounter
--- OUTSIDE RECORDS SUMMARY | 2022-06-24 11:48 | XMS_ITS | Encounter Summary ---
:1998 Author Organization [facility] Address [address] [place] [address] Care Team Providers Name Role Phone Sohan Winters MD Primary Care Provider [phone] Reason for Visit Reason Onset Date Comments Coordination Of Care 02/27/2021 Encounter Details Date Type Department Care Team Description 02/27/2021 Telephone [facility] - Cht Coremaker Apprentice, C oordination Of Care [facility] [address] [place] [address] Social History Tobacco Use Types Packs/Day Years [...] Notes Telephone Encounter - Shanon Land - 02/27/2021 9375 EDT CHT called pt to check in on her and find out about rescheduling her appointment she missed today. Pt does not have a Voice Mail box set up. CHT could not leave a message. CHT will try to call again. CHT learned to day that Pt has connected with the [employer] project and will be getting services with them, T and [facility] are going to work on getting pt to come in for care. CHT alerted the [facility] [employer] project to the no show today. documented in this encounter Plan of Treatment Upcoming Encounters Date Type Specialty Care Team Description 06/25/2022 Telemedicine Family Medicine Chandrika Harrison MD Arrived [address] [place] [phone] (Wo rk) documented as of this encounter Visit Diagnoses Not on filedocumented in this encounter Care Teams Stopping Builder Relationship Specialty Start Date End Date Sohan Winters MD PCP - General 11/13/14 04/29/21 [address] [place] [address] documented as of this encounter
--- OUTSIDE RECORDS SUMMARY | 2022-06-24 11:48 | XMS_ITS | Encounter Summary ---
:1998 Author Organization [facility] Address [address] [place] [address] Care Team Providers Name Role Phone Sohan Winters MD Primary Care Provider [phone] Encounter Details Date Type Department Care Team Description 03/16/2021 Orders Only [facility] - Jessenia Weinberg High risk [facility] multigravida, second [address] trimester (Primary Dx) [place] [address] [address], [address] [place] [phone] Social History Tobacco Use Types Packs/Day Years [...] Telemedicine Family Medicine Chandrika Harrison MD Arrived [address] [place] [phone] (Wo rk) documented as of this encounter Visit Diagnoses Diagnosis High risk multigravida, second trimester - Primary documented in this encounter Care Teams Medical Case Manager Relationship Specialty Start Date End Date Sohan Winters MD PCP - General 11/13/14 04/29/21 [address] [place] [address] documented as of this encounter
--- OUTSIDE RECORDS SUMMARY | 2022-06-24 11:48 | XMS_ITS | Encounter Summary ---
:2000 Author Organization [facility] Address [address] [place] [address] Care Team Providers Name Role Phone Sohan Winters MD Primary Care Provider [phone] Encounter Details Date Type Department Care Team Description 03/12/[address] [facility] Social Work er, [facility] Womens [address] [place] [address] Social History Tobacco Use Types [...] this encounter Progress Notes Shanon Land - 03/12/2021 8296 EDT CHT spoke to KRISTIE Pemberton about pt. Pt has recently had her partner taken back to assisted, TA is concerned her mental Health is at risk. TA states she has not coping skills, she is crying non -stop, she has her partner at her rep payee and she can not accesses her funds, she is not eating, and she isnot responding to any help. CHT contact pt [facility] case work aide and alerted her to the situation. Sol was supposed to meet with pt today at 1 but pt would not respond to her. CHT called pt and she explained that she is sad and can not talk to anyone about it as she hates talking to strangers. Pt states she will eat and plans to put the hotel in her name as it is currently in her partners name so thatshe could stay there with her. Pt is stating she will reach out to CHT and Sol is she needs help. Pt refused the crisis line number. [facility]. Pt did not want to talk about anything else. Pt states she did not know why her partner was taken and plans to find out when she is allowed. CHT will follow up with pt. documented in this encounter Plan of Treatment Upcoming Encounters Date Type Specialty Care Team Description 06/25/2022 Telemedicine Family Medicine Chandrika Harrison MD Arrived [address] [place] [phone] (Wo rk) documented as of this encounter Visit Diagnoses Not on filedocumented in this encounter Care Teams Manager Policy Relationship Specialty Start Date End Date Sohan Winters MD PCP - General 11/13/14 04/29/21 [address] [place] [address] documented as of this encounter
--- OUTSIDE RECORDS SUMMARY | 2022-06-24 11:48 | XMS_ITS | Encounter Summary ---
:2000 Author Organization [facility] Address [address] [place] [address] Care Team Providers Name Role Phone Sohan Winters MD Primary Care Provider [phone] Reason for Visit Reason Onset Date Comments Coordination Of Care 03/06/2021 Encounter Details Date Type Department Care Team Description 03/06/2021 Telephone [facility] - Cht Union Organizer, C oordination Of Care [facility] Womens [address] [place] [address] Social History Tobacco Use Types Packs/Day Years [...] Notes Telephone Encounter - Shanon Land - 03/06/2021 0832 EDT CHT received notice that Pt did the intake with [facility] for [facility] and On Site Property Manager project. CHT will plan to bring in [facility] Sol the pt's new case manager specialist into the visit today. documented in this encounter Plan of Treatment Upcoming Encounters Date Type Specialty Care Team Description 06/25/2022 Telemedicine Family Medicine Chandrika Harrison MD Arrived [address] [place] [phone] (Wo rk) documented as of this encounter Visit Diagnoses Not on filedocumented in this encounter Care Teams Hospital Unit Clerk Relationship Specialty Start Date End Date Sohan Winters MD PCP - General 11/13/14 04/29/[address] [place] [address] [place] [address] documented as of this encounter
--- OUTSIDE RECORDS SUMMARY | 2022-06-24 11:48 | XMS_ITS | Encounter Summary ---
:1998 Author Organization [facility] Address [address] [place] [address] Care Team Providers Name Role Phone Michaela Saldaña MD Unavailable Alee Cruz MD Unavailable Murali Burton MD Unavailable Otoniel Coulter MD Unavailable Arnold Harrison MD Primary Care Provider Reason for Visit Reason Onset Date Comments Other 04/30/2021 medication request Encounter Details Date Type Department Care Team Description 04/30/2021 Telephone [facility] - Arnold Harrison Ot her (medication [facility] MD Robert request ) Medicine [address] [place] [phone] (Wo rk) Social History Tobacco Use Types [...] Telephone Encounter - Ventura Washington RN - 04/30/2021 1418 EDT It does not look like the patient is currently using a cream. Please schedule a visit. Telephone Encounter - Zulma Marks MA - 04/30/2021 1330 EDT 33 wk requesting cream for eczema on her legs documented in this encounter Plan of Treatment Upcoming Encounters Date Type Specialty Care Team Description 06/25/2022 Telemedicine Family Medicine Chandrika Harrison MD Arrived [address] [place], [place] [phone] (Wo rk) documented as of this encounter Visit Diagnoses Not on filedocumented in this encounter Care Teams Predator Control Trapper Relationship Specialty Start Date End Date Arnold Harrison MD PCP - General Family Medicine - Primary 04/30/21 [address] [place] [phone] Michaela Saldaña MD Obstetrics and Gynecology 04/08/[address] [place] [address], [address] [place] [address] Alee Cruz MD Child and Adolescent 04/08/21 Psychiatry Murali Burton MD Sports Medicine 04/08/21 Otoniel Coulter MD Ophthalmology 04/08/21 documented as of this encounter
--- OUTSIDE RECORDS SUMMARY | 2022-06-24 11:48 | XMS_ITS | Encounter Summary ---
:2000 Author Organization [facility] Address [address] [place] [address] Care Team Providers Name Role Phone Sohan Winters MD Primary Care Provider [phone] Reason for Referral Consult (3 - 10 Business Days) - Closed Specialty Diagnoses / Procedures Referred By Contact Refer red To Contact Obstetrics & Diagnoses Anxiety disorder affecting , antepartum Lupe Mukherjee MD Wood, Sandra G, TECHNICAL PROJECT MANAGER Gynecology [address] [facility] [address], [address] [place] [address], [facility] [place] [phone] [place], [address] [place] [address] Phone: Fax: Referral ID Status Reason Start Date Expiration Date Visits V isits Requested Authorized [id number] Closed Specialty 01/22/2021 1 1 Services Required Question Answer Reason for Request: anxiety, depression, biopola r, substance abuse Scheduling Comments (optional ? PAULINO describe specific scheduling needs if applicable): Reason for Visit Reason Onset Date Comments Medication Management 01/22/2021 calling about medi cation Encounter Details Date Type Department Care Team Description 01/22/2021 Telephone [facility] - Lupe Mukherjee, Ak dication Management [facility] (calling about [address] medication ) [place] [address] [address], [address] [place] [address] (Wo rk) Social History Tobacco Use Types [...] this encounter Miscellaneous Notes Telephone Encounter - Lupe Mukherjee MD - 01/28/2021 1501 EST Michelet Claudio. Consult with Ashley Sanchez was turned down because she had an appointment with Dr. Cruz. Can we find out if she kept that? If not she needs to be rescheduled PAULINO. Thanks, Colleen Telephone Encounter - Deysi Whyte RN - 01/26/2021 0853 EST Called and reached Marlo. Confirmed her appt at 14:[address] Cruz - discussed the reason for the appt and pt verbalized understanding. Pt had no questions/concerns at time of call. Also confirmed that she has an ultrasound tomorrow with a nurse visit to follow. elephone Encounter - Jessenia Weinberg CNM - 01/23/2021 1420 EST I will try tomorrow to reach Marlo Velasquez, can you also try early Tuesday to let her know of Mondays appointment With Dr. Cruz if I don't reach her. This is important, as she can start her back on her meds. Thanks! elephone Encounter - Jessenia Weinberg CNM - 01/23/2021 1258 EST I called and left a message for Marlo to call me in the clinic - no answer on her phone. I am hoping that she knows about this appointment On 01/26. I will try and call her this weekend also to touch base. elephone Encounter - Naz Padilla RN - 01/23/2021 1024 EST Chart reviewed - Referral to Ashley Sanchez was denied as pt has a televideo appt scheduled with Dr Alee Cruz at [facility] on Tuesday01/26/2021. Attempted to call pt to discuss - LM on VM at provided number. elephone Encounter - Lupe Mukherjee MD - 01/23/2021 0221 EST Please reach out to Marlo on Tuesday to assess her well-being. I did reach out to Ashley Sanchez and amwaiting to hear back. Unfortunately I do not know where Shanon is on working on psych/PCP care for her. [facility] screener? Pharmacy Informaticist? elephone Encounter - Naz Padilla RN - 01/22/2021 1542 EST Called to speak with pt. She was very upset. I attempted to discuss with her; whenever I spoke, she spoke over me. Pt states my anxiety is getting worse and someone needs to help. Pt states why don't you speak to Carina, she said she'd help me. Pt states I need gabapentin for my sciatica and something for my anxiety and depression. I was unable to tell pt to seek care at ER or ask about thoughts of self harm as she hung up the phone. Dr. Mukherjee - I'm sorry - I'm not sure how to proceed. Joee send back to nurse [place] or have Jerilyn Montes follow up with pt today as needed. Thank you. elephone Encounter - Lupe Mukherjee MD - 01/22/2021 1533 EST OK. Please let her know that I am working on getting some options and I will be in touch, hopefully by Tuesday. If she has any thoughts of self harm or needs more urgent psychiatric care she should go to the ED. elephone Encounter - Naz Padilla RN - 01/22/[address] Mukherjee - I just realized Shanon is out of the office until at least 01/28; elephone Encounter - Lupe Mukherjee MD - 01/22/2021 1243 EST She did speak to me about her anxiety. Unfortunately the medication that has worked for her (seroquel) is not something that I have experience prescribing. Please let her know we are working very hard on getting her an appropriate prescriber. Shanon- how soon can you get Marlo in to see a PCP or psychiatric provider? It does seem quite urgent in that she is having a hard time functioning, making it to appointments. The other option would lee try to get her at least a remote appt with Carolina Sanchez if she will accept that. elephone Encounter - Naz Padilla RN - 01/22/[address] Mukherjee - I reviewed your note from yesterday; I don't see any meds for anxiety; please advise. Thanks. elephone Encounter - Kya Troncoso - 01/22/2021 1203 EST Pt is AP was seen yesterday and spoke to the provider about her anxiety, pt thought a prescription was going to be sent but her pharmacy doesn't have anything. Please send to [facility] [place]. documented in this encounter Plan of Treatment Upcoming Encounters Date Type Specialty Care Team Description 06/25/2022 Telemedicine Family Medicine Chandrika Harrison MD Arrived [address] [place] [phone] (Wo rk) Scheduled Referrals Name Type Priority Associated Order Schedule Diagnoses AMB CONS/FOLLOW UP Outpatient Referral Routine Anxiety disorde r Expected: OBSTETRICS affecting 01/29/2021 , (Approximate) antepartum documented as of this encounter Visit Diagnoses Diagnosis Anxiety disorder affecting , an tepartum - Primary documented in this encounter Care Teams Blue Leather Sorter Relationship Specialty Start Date End Date Sohan Winters MD PCP - General 11/13/14 04/29/21 [address] [place] [address] documented as of this encounter
--- OUTSIDE RECORDS SUMMARY | 2022-06-24 11:48 | XMS_ITS | Encounter Summary ---
:1998 Author Organization [facility] Address [address] [place] [address] Care Team Providers Name Role Phone Sohan Winters MD Primary Care Provider [phone] Michaela Saldaña MD Unavailable Alee Cruz MD Unavailable Murali Burton MD Unavailable Otoniel Coulter MD Unavailable Encounter Details Date Type Department Care Team Description 04/16/2021 Travel Social History Tobacco Use Types Packs/Day [...] Family Medicine Chandrika Harrison MD Arrived [address] [place] [phone] (Wo rk) documented as of this encounter Visit Diagnoses Not on filedocumented in this encounter Care Teams Vessel Crew Member Relationship Specialty Start Date End Date Sohan Winters, PCP - General 11/13/14 [address] [place], [place] [phone] Michaela Saldaña MD Obstetrics and Gynecology 04/08/[address] [place] [address], [address] [place] [address] Alee Cruz MD Child and Adolescent 04/08/21 Psychiatry Murali Burton MD Sports Medicine 04/08/21 Otoniel Coulter MD Ophthalmology 04/08/21 documented as of this encounter
--- OUTSIDE RECORDS SUMMARY | 2022-06-24 11:48 | XMS_ITS | Encounter Summary ---
:2000 Author Organization [facility] Address [address] [place] [address] Care Team Providers Name Role Phone Sohan Winters MD Primary Care Provider [phone] Encounter Details Date Type Department Care Team Description 03/20/2021 Travel Social History Tobacco Use Types Packs/Day [...] Telemedicine Family Medicine Chandrika Harrison MD Arrived [address] [place] [phone] (Wo rk) documented as of this encounter Visit Diagnoses Not on filedocumented in this encounter Care Teams Process Improvement Consultant Relationship Specialty Start Date End Date Sohan Winters MD PCP - General 11/13/14 04/29/21 [place] [address] documented as of this encounter
--- OUTSIDE RECORDS SUMMARY | 2022-06-24 11:48 | XMS_ITS | Encounter Summary ---
:1998 Author Organization [facility] Address [address] [place] [address] Care Team Providers Name Role Phone Sohan Winters MD Primary Care Provider [phone] Reason for Visit Reason Onset Date Comments Appointment Related 12/24/2020 Encounter Details Date Type Department Care Team Description 12/24/[address] [facility] - Yennifer Kwan A ppointment Related [facility] Health CORROSION CONTROL FITTER [address] [place] [address] [address]OB[facility], [address] [place] [address] (Wo rk) Social History Tobacco [...] Telephone Encounter - Deysi Whyte RN - 12/25/2020 1102 EST Pt returned call and was scheduled for 01/02/2021 with by the java front end web developer. This was the soonest available appt. Forwarding to Shanon so that this is on her radar, since it's not a Tuesday or Tuesday. elephone Encounter - Deysi Whyte RN - 12/24/2020 1510 EST Message left for pt asking her to please call me back at her earliest convenience. Her phone number appears to be her [employer] Data MinderAlee) cell number. elephone Encounter - Yennifer Kwan APRN - 12/24/2020 1354 EST Michelet Deysi, This is a new IVAP patient seen by Carina Weinberg about 10 days ago. She didn't return for her exam and I don't see a f/u visit arranged. Carina requested Shanon Land involvement to possibly help with getting her connected with MAT. Any chance you can try to get her to come back in for a visit. Ideally on a Mon or Weds when Shanon Land is in the office. Looks like there are some issues with her phone contacts. Thank-you, Yennifer -- Yennifer Kwan CNM, PHOTO MASK PROCESSOR Certified Nurse Chief Diversity Officer & Family Nurse Practitioner documented in this encounter Plan of Treatment Upcoming Encounters Date Type Specialty Care Team Description 06/25/2022 Telemedicine Family Medicine Chandrika Harrison MD Arrived [address] [place] [phone] (Wo rk) documented as of this encounter Visit Diagnoses Not on filedocumented in this encounter Care Teams Return Checker Relationship Specialty Start Date End Date Sohan Winters MD PCP - General 11/13/14 04/29/21 [place] [address] documented as of this encounter
--- OUTSIDE RECORDS SUMMARY | 2022-06-24 11:48 | XMS_ITS | Encounter Summary ---
:2000 Author Organization [facility] Address [address] [place] [address] Care Team Providers Name Role Phone Sohan Winters MD Primary Care Provider [phone] Reason for Visit Reason Onset Date Comments Coordination Of Care 04/06/2021 Encounter Details Date Type Department Care Team Description 04/06/2021 Telephone [facility] - Cht Retail Inventory Control Clerk, C oordination Of Care [facility] Womens [address] [place] [address] Social History Tobacco Use Types Packs/Day Years [...] Notes Telephone Encounter - Shanon Land - 04/06/2021 1518 EDT CHT received a report from [facility] that that treatment associates did a DCF report based onher positive tests in her UA's of cocaine and lack of engagement in treatment. DCF intake #[id number]. documented in this encounter Plan of Treatment Upcoming Encounters Date Type Specialty Care Team Description 06/25/2022 Telemedicine Family Medicine Chandrika Harrison MD Arrived [address] [place] [phone] (Wo rk) documented as of this encounter Visit Diagnoses Not on filedocumented in this encounter Care Teams Paraprofessional Education Assistant Relationship Specialty Start Date End Date Soahn Winters MD PCP - General 11/13/14 04/29/21 [address] [place] [address] documented as of this encounter
--- OUTSIDE RECORDS SUMMARY | 2022-06-24 11:48 | XMS_ITS | Encounter Summary ---
:1998 Author Organization [facility] Address [address] [place] [address] Care Team Providers Name Role Phone Sohan Winters MD Primary Care Provider Michaela Saldaña MD Unavailable Alee Cruz MD Unavailable Murali Burton MD Unavailable Otoniel Coulter MD Unavailable Arnold Harrison MD Primary Care Provider Dunia Dejesus Unavailable Encounter Details Date Type Department Care Team Description 01/27/2021 Results Only Imaging [facility] - Lisandra Mukherjee, [facility] Radiology Resul ts [address] [place] [address] [address], [address] [place] [address] (Wo rk) Social History Tobacco [...] Telemedicine Family Medicine Chandrika Harrison MD Arrived [address] [place] [phone] (Wo rk) documented as of this encounter Procedures Procedure Name Priority Date/Time Associated Diagnosis [facility] ROUTINE 01/28/2021 11:48 Results fo r this (GREATER THAN 14 EST procedure a re in WEEKS) the results section. US ABDOMEN LIMITED 01/27/2021 14:09 Resul ts for this EST procedure are i n the results section. documented in this encounter Results US OB ROUTINE (GREATER THAN 14 WEEKS) (01/28/2021 11:48 EST) Specimen Narrative [facility] RAD[facility]OLOG[facility] - 01/28/2021 11:48 EST ? EXAM: ULTRASOUND/OB-LEVEL 2 ? EX. D/ (1350) ? CLINICAL INFORMATION: ? O09.92 SUPERVISION OF HIGH RISK P REGNANCY ? O34.219 PREVIOUS CEAREAN DELIVERY ? GROWTH ?? ASSESSMENT, 20WKS GESTATION ? See attached report. ??Report als o available in PACS and [employer] for ? ordering [facility] Provi ders. ? BS:dnl ?Reported B y: Sunita Boateng MD ? CC: ? Transcribed Date/Time: 01/28/2021 (1148) ? Business Systems Advisor: GUNNAR ? Printed Date/Time: 01/28/2021 (11 49) ? PAGE 1 ? Clemencia d Report ? Procedure Note Sunita Boateng MD - 01/28/2021 EXAM: ULTRASOUND/OB-LEVEL 2 EX. D/T: (1350) CLINICAL INFORMATION: O09.92 SUPERVISION OF HIGH RISK PREGNAN CY O34.219 PREVIOUS CEAREAN DELIVERY GROWTH ASSESSMENT, 20WKS GESTATIO N See attached report. Report also availa ble in PACS and EPIC for ordering [facility] Providers. BS:dnl Reported By: Sunita Boateng MD CC: Transcribed Date/Time: 01/28/2021 (2586 ) Business Systems Advisor: GUNNAR Printed Date/Time: 01/28/2021 (0655) PAGE 1 Signed Report Performing Organization Address City/State/ZIP Code Phon e Number [facility] US ABDOMEN LIMITED (01/27/2021 14:09 EST) Specimen Narrative [facility] - 01/27/2021 14:09 EST ? EXAM: ULTRASOUND/RIGHT UPPER QUADRANT ? EX. D/ (1350) ? CLINICAL INFORMATION: ? O21.9 NAUSEA ?? VOMITING DURING P REGNANCY ? R10.11 RUQ ABDOMINAL PAIN ? B19.20 HEPATITIS C VIRUS INFECTIO N W/O ? HEPATIC COMA ? RIGHT UPPER QUADRANT ? Signs and Symptoms/Comments: ??O2 1.9 NAUSEA ?? VOMITING DURING ? , R10.11 RUQ ABDOMINAL P AIN , B19.20 HEPATITIS C VIRUS ? INFECTION W/O, HEPATIC COMA ? Comparison: None ? Technique: Right upper quadrant a bdominal ultrasound was performed ? with color Doppler imaging. ? FINDINGS: ? Pancreas: The visible portion of the pancreas is grossly ? unremarkable. ? Liver: The liver is normal in siz e (measuring 13.7 cm). The liver is ? normal in echotexture. No focal h epatic mass is identified. ? Bile Ducts: No biliary dilatation is identified. The common bile duct ? measures 5.8 mm. ? Gallbladder: There is gallbladder layering sludge. The gallbladder ? wall is normal in thickness (1.4 mm). No pericholecystic fluid is ? visible. No sonographic Wilburn's sign was elicited. ? Right Kidney: The right kidney is normal in size, measuring 10.0 cm. ? No renal mass is identified. No s hadowing calculi are visible. No ? hydronephrosis is present. ? IVC: The visible portion of the p roximal IVC is unremarkable. ? IMPRESSION: ? 1. No focal hepatic mass detected . ? 2. Layering gallbladder sludge. N o imaging evidence of acute ? cholecystitis is detected. ? REPORT SIGNED IN OTHER VENDOR SYSTEM 01/27/2021 ?Reported B y: Ubaldo Pereira MD ? CC: ? Transcribed Date/Time: 01/27/2021 (1409) ? Business Systems Advisor: [place] ? Printed Date/Time: 01/27/2021 (14 09) ? PAGE 1 ? Clemencia d Report ? Procedure Note Ubaldo Pereira MD - 01/27/2021 EXAM: ULTRASOUND/RIGHT UPPER QUADRANT E X. D/ (1350) CLINICAL INFORMATION: O21.9 NAUSEA VOMITING DURING R10.11 RUQ ABDOMINAL PAIN B19.20 HEPATITIS C VIRUS INFECTION W/O HEPATIC COMA RIGHT UPPER QUADRANT Signs and Symptoms/Comments: O21.9 NAUS EA VOMITING DURING , R10.11 RUQ ABDOMINAL PAIN , B19.20 HEPATITIS C VIRUS INFECTION W/O, HEPATIC COMA Comparison: None Technique: Right upper quadrant abdomin al ultrasound was performed with color Doppler imaging. FINDINGS: Pancreas: The visible portion of the pa ncreas is grossly unremarkable. Liver: The liver is normal in size (elizabeth suring 13.7 cm). The liver is normal in echotexture. No focal hepatic mass is identified. Bile Ducts: No biliary dilatation is id entified. The common bile duct measures 5.8 mm. Gallbladder: There is gallbladder layer ing sludge. The gallbladder wall is normal in thickness (1.4 mm). N o pericholecystic fluid is visible. No sonographic Wilburn's sign w as elicited. Right Kidney: The right kidney is matthias l in size, measuring 10.0 cm. No renal mass is identified. No shadowi ng calculi are visible. No hydronephrosis is present. IVC: The visible portion of the proxima l IVC is unremarkable. IMPRESSION: 1. No focal hepatic mass detected. 2. Layering gallbladder sludge. No imag ing evidence of acute cholecystitis is detected. REPORT SIGNED IN OTHER VENDOR SYSTEM 01/27/2021 Reported By: Ubaldo Pereira MD CC: Transcribed Date/Time: 01/27/2021 (8952 ) Business Systems Advisor: Printed Date/Time: 01/27/2021 (7746) PAGE 1 Signed Report Performing Organization Address City/State/ZIP Code Phon e Number [facility] documented in this encounter Visit Diagnoses Not on filedocumented in this encounter Care Teams Analyst Food And Beverage Relationship Specialty Start Date End Date Sohan Winters PCP - General 11/13/14 1 MD [address] [place], [place] [id number] Arnold Harrison MD PCP - General Family Medicine - Primary 04/30/[address] [place] [phone] Michaela Saldaña MD Obstetrics and Gynecology 04/08/21 [address] [facility], [address] [place] [phone] Alee Cruz MD Child and Adolescent 04/08/21 Psychiatry Murali Burton MD Sports Medicine 04/08/21 Otoniel Coulter MD Ophthalmology 04/08/21 Dunia Dejesus Manager [facility] 02/18/22 [address] [facility] [address] [place] [address] documented as of this encounter
--- OUTSIDE RECORDS SUMMARY | 2022-06-24 11:48 | XMS_ITS | Encounter Summary ---
:1998 Author Organization [facility] Address [address] [place] [address] Care Team Providers Name Role Phone Sohan Winters MD Primary Care Provider [phone] Reason for Visit Reason Onset Date Comments Follow-up 02/27/2021 Encounter Details Date Type Department Care Team Description 02/27/[address] [facility] [place] [facility] Johnna Shaffer Follow-up Women Health [address] [facility] [address] [facility] [address] [place] [address] [place] [address] [phone] (Wo rk) Social History Tobacco Use Types [...] Notes Telephone Encounter - Johnna Perea - 02/27/2021 1214 EDT F/u call to pt; pt indicated she is working with Mary Alice at [facility] 2x/week and feels this is good connection and support; filled out paperwork for PCP with Mary Alice and needs to get it in; wants to f/u on [facility] for wisdom tooth work; will wait for rereferral to Alee Cruz to see if PCP can prescribe mental health medications. documented in this encounter Plan of Treatment Upcoming Encounters Date Type Specialty Care Team Description 06/25/2022 Telemedicine Family Medicine Chandrika Harrison MD Arrived [address] [place] [phone] (Wo rk) documented as of this encounter Visit Diagnoses Not on filedocumented in this encounter Care Teams Municipal Bond Trader Relationship Specialty Start Date End Date Sohan Winters MD PCP - General 11/13/14 04/29/21 [address] [place] [address] documented as of this encounter
--- OUTSIDE RECORDS SUMMARY | 2022-06-24 11:48 | XMS_ITS | Encounter Summary ---
:2000 Author Organization [facility] Address [address] [place] [address] Care Team Providers Name Role Phone Sohan Winters MD Primary Care Provider [phone] Encounter Details Date Type Department Care Team Description 03/06/2021 Results Only [facility] - [facility] Jessenia Weinberg, [facility] 130 [facility] [address] [place] [address] [address], [address] [place] [phone] (Wo rk) Social History [...] Telemedicine Family Medicine Chandrika Harrison MD Arrived [address] [place] [phone] (Wo rk) documented as of this encounter Procedures Procedure Name Priority Date/Time Associated Comments Diagnosis HEPATITIS C AB Routine 03/06/2021 11:48 Results f or this W/REFLEX - [facility] EDT procedure ar e in the results section. HIV 1/2 AB, P24 AG - Routine 03/06/2021 11:48 Res ults for this [facility] EDT procedure are i n the results section. COMPLETE BLOOD COUNT Routine 03/06/2021 11:48 Res ults for this WITH DIFFERENTIAL EDT procedure are in (AUTO) the results section. RUBELLA IGG ANTIBODY Routine 03/06/2021 11:48 Res ults for this EDT procedure are i n the results section. HEPATITIS B SURFACE Routine 03/06/2021 11:48 Resu lts for this ANTIBODY EDT procedure are i n the results section. TYPE AND SCREEN Routine 03/06/2021 11:48 Results for this EDT procedure are i n the results section. VARICELLA IGG Routine 03/06/2021 11:48 Results fo r this ANTIBODY EDT procedure are i n the results section. HEPATIC FUNCTION Routine 03/06/2021 11:48 Results for this PANEL (ALB,ALK EDT procedure are in PHOS,ALT,AST,DBIL,TOT the re sults ELIAS,TOT PROT) section. GC/CHLAMYDIA/TRICHOMO Routine 03/06/2021 11:30 Re sults for this OBIE URINE - CV EDT procedure a re in the results section. VAGINAL GRAM STAIN Routine 03/06/2021 11:30 Resul ts for this FOR BV - CV EDT procedure are in the results section. documented in this encounter Results VARICELLA IGG ANTIBODY (03/06/2021 11:48 EDT) Pathologist Sig nature Varicella IgG Ab Negative Negative [facility] Specimen Performing Organization Address [facility] Code Phon e Number [facility] [address] [place], [place] [id number] HIV 1/2 AB, P24 AG - [facility] (03/06/2021 11:48 EDT) Pathologist Sig nature HIV 1/2 AB, P24 AG - Negative Negative [facility] Specimen Performing Organization Address [facility] Code Phon e Number [facility] [address] [place] [address] HEPATITIS C AB W/REFLEX - [facility] (03/06/2021 11:48 EDT) HEPATITIS C AB ReactiveComment: [facility] W/REFLEX - [facility] Expected Values: [facility] Negative. Specimen Performing Organization Address City/[facility]/ZIP Code Phon e Number [facility] [address] [place] [address] HEPATITIS B SURFACE ANTIBODY (03/06/2021 11:48 EDT) Hep B Surface Ab, 1.7 [facility] Qualitative Comment: [facility] ?Interpretative Guidelines < 5.00 mIU/mL = ?Negative Clinical Interpretation of Immune Status: Patient is considered to be not immune to infection with HBV. The results of this assay can be falsely lowered due to the consumption of Biotin. Specimen Performing Organization Address City/[facility] Phon e Number [facility] [address] [place] [address] RUBELLA IGG ANTIBODY (03/06/2021 11:48 EDT) RUBELLA IGG Positive [facility] ANTIBODY [facility] Comment: [facility] Expected value: Positive The presence of Rubella IgG suggest immunity against r ubella Specimen Performing Organization Address City/[facility]/ZIP Code Phon e Number [facility] [address] [place] [address] TYPE AND SCREEN (03/06/2021 11:48 EDT) Pathologist [facility] BLOOD TYPE - [facility] A Positive [facility] Antibody Screen NEGATIVE [facility] Specimen Expires: 03/09/21 4920 [facility] Comment: [facility] PATIENT'S RESPONSES INDICATE A HISTORY OF SURGERY, TRANSFUSION OR WITHIN THE LAST 3 MONTHS. FOR BLOOD PRODUCTS, THIS SPECIMEN WILL OUTDATE 72 HOUR S FROM THE TIME IT WAS COLLECTED. ??ANY BLOOD PRODUCTS ORDERE D AFTER 72 HOURS MUST BE WORKED UP ON A NEW SPECIMEN. Specimen Performing Organization Address [facility] Phon e Number [facility] [address] [place] [address] (ABNORMAL) HEPATIC FUNCTION PANEL (ALB,ALK PHOS,ALT,AST,DBIL,TOT ELIAS,TOT PROT) (03/06/2021 11:48 EDT) Pathologist [facility] nature ALBUMIN - [facility] 3.1 (L) 3.4 - 4.9 g/dL [facility] ALKALINE PHOSPHATASE - 46 38 - 126 U/L [facility] D [facility] BILIRUBIN DIRECT CALC 0.2 0.0 - 0.4 mg/dL [facility] BILIRUBIN TOTAL 0.2 0.2 - 1.3 mg/dL [facility] Unconjugated Bilirubin 0.0 0.0 - 1.1 mg/dL [facility] TOTAL PROTEIN - [facility] 5.9 (L) 6.2 - 8.2 gm/dL [facility] SGOT/AST - [facility] 17 14 - 36 U/L [facility] SGPT/ALT - [facility] 7 0 - 35 U/L [facility] Specimen Performing Organization Address City/State/ZIP Code Phon e Number [facility] [address] [place] [address] (ABNORMAL) COMPLETE BLOOD COUNT WITH DIFFERENTIAL (AUTO) (03/06/2021 11:48 EDT) Pathologist Sig nature ABSOLUTE NEUTROPHIL 9.2 (H) 2.2 - 8.85 [facility] COUN - [facility] 10e3/uL [facility] BASO # - [facility] 0.09 0.01 - 0.11 [facility] 10e/uL [facility] BASO % - [facility] 1 0 - 2 % [facility] EOS # - [facility] 0.30 0.03 - 0.61 [facility] 10e3/ul [facility] EOS % - [facility] 2 0 - 5 % [facility] GRAN % - [facility] 74.2 40 - 80 % [facility] HEMATOCRIT - [facility] 34.6 (L) 34.9 - 44.4 % [facility] HEMOGLOBIN - [facility] 11.4 (L) 11.6 - 15.2 [facility] g/dl [facility] IG# - [facility] 0.13 0 - 0.7 10e3/uL [facility] IG% - [facility] 1.0 (H) 0 - 0.9 % [facility] LYMPH # - [facility] 1.9 1.09 - 3.3 [facility] 10e3/ul [facility] LYMPH% - [facility] 15.3 (L) 20 - 40 % [facility] MEAN CORPUSCULAR HGB 31.8 26.7 - 33.3 pg [facility] ME D - [facility] CENTER LAB MEAN CORPUSCULAR HGB 32.9 32.1 - 35.9 [facility] CONC - [facility] g/dL [facility] MEAN CELL VOLUME - 96.4 81 - 98 fl [facility] MONO # - [facility] 0.8 0.1 - 0.8 [facility] 10e3/uL [facility]ENTER LAB MONO% - [facility] 6.4 0 - 12 % [facility] PLATELET COUNT 246 141 - 377 [facility] 10e3/ul [facility] RED BLOOD COUNT - 3.59 (L) 3.86 - 5.04 [facility] 10e6/ul [facility] RED CELL DISTRI WIDTH 12.9 <14.7 % [facility] WHITE BLOOD COUNT - 12.5 (H) 4.0 - 12.4 [facility] 10e3/ul [facility] LAB Specimen Performing Organization Address City/[facility] Code Phon e Number [facility] [address] [place] [address] GC/CHLAMYDIA/TRICHOMONAS URINE - [facility] (03/06/2021 11:30 EDT) CHLAMYDIA PCR - NOT DETECTED [facility] GONORRHEA PCR - NOT DETECTED [facility] SOURCE URINE [facility] TRICHOMONAS DETECTED [facility] VAGINALIS PCR UR - Comment: [facility] Result called to LINDSEY CONNOLLY/THIAS 03/06/21 1528: Result called by DESIREE TRICHOMONAS VAGINALIS DNA detected by nucleic acid amplification with real-time PCR. Xpert TV assay performance has not been evaluated in women or in patients with a history of hysterectomy. Specimen Performing Organization Address City/[facility] Code Phon e Number [facility] [address] [place] [address] VAGINAL GRAM STAIN FOR BV - [facility] (03/06/2021 11:30 EDT) VAGINAL GRAM STAIN Total score of 0-3 is considered normal [facility] FOR BV - [facility] Total score of 4-6 is intermediate MED C ENTER LAB Total score of 7-10 is suggestive of bacterial vaginos is BACTERIAL 0 [facility] VAGINOSIS SCORE - [facility] YEAST - [facility] NO [facility] Specimen Vagina Performing Organization Address City/[facility]/ZIP Code Phon e Number [facility] [address] [place] [address] documented in this encounter Visit Diagnoses Not on filedocumented in this encounter Care Teams Director Cost Relationship Specialty Start Date End Date Sohan Winters MD PCP - General 11/13/14 04/29/21 [facility] [place] [address] documented as of this encounter
--- OUTSIDE RECORDS SUMMARY | 2022-06-24 11:48 | XMS_ITS | Encounter Summary ---
:1998 Author Organization [facility] Address [address] [place] [address] Care Team Providers Name Role Phone Sohan Winters MD Primary Care Provider [phone] Reason for Visit Reason Onset Date Comments Establish Care 03/23/2021 Encounter Details Date Type Department Care Team Description 03/23/2021 Telephone [facility] - [facility] Samson Winters, [facility] Integrative Family Medicine [place] [address] [address] [place] [phone] (Wo rk) Social History Tobacco Use Types [...] this encounter Miscellaneous Notes Telephone Encounter - Anne Guadalupe - 03/25/2021 1205 EDT 04/17/21 915am with je via zoom to est care. Pt aware. elephone Encounter - Anne Guadalupe - 03/23/2021 1612 EDT Pt asks to est care with ifmm. No preference for male or female provider. pprwrk scanned to pt chart. Spoke with pt today to schedule with je and call was dropped. I called pt back and lm for pt to call ifmm to schedule. documented in this encounter Plan of Treatment Upcoming Encounters Date Type Specialty Care Team Description 06/25/2022 Telemedicine Family Medicine Chandrika Harrison MD Arrived [address] [place] [phone] (Wo rk) documented as of this encounter Visit Diagnoses Not on filedocumented in this encounter Care Teams Reading Coach Relationship Specialty Start Date End Date Sohan Winters MD PCP - General 11/13/14 04/29/21 [place] [address] documented as of this encounter
--- OUTSIDE RECORDS SUMMARY | 2022-06-24 11:48 | XMS_ITS | Encounter Summary ---
:1998 Author Organization [facility] Address [address] [place] [address] Care Team Providers Name Role Phone Sohan Winters MD Primary Care Provider [phone] Encounter Details Date Type Department Care Team Description 01/02/2021 Orders Only [facility] - [facility] Yennifer Lovelace APRN [facility] 130 [facility] 130 [facility] [address] [place] [address] [place] [phone] (Wo rk) Social History Tobacco [...] Telemedicine Family Medicine Chandrika Harrison MD Arrived [address] [place] [phone] (Wo rk) documented as of this encounter Visit Diagnoses Not on filedocumented in this encounter Historical Medications This list may reflect changes made after this encounter. Medication Sig Dispensed Refills Start Date End Date PREPLUS 27 mg iron- 1 mg Take 1 Tab by mouth 0 03/06/2021 tablet tablet daily. added in this encounter Care Teams Business Development Engineer Relationship Specialty Start Date End Date Sohan Winters MD PCP - General 11/13/14 04/29/[address] [place] [address] [place] [address] documented as of this encounter
--- OUTSIDE RECORDS SUMMARY | 2022-06-24 11:48 | XMS_ITS | Encounter Summary ---
:1998 Author Organization [facility] Address [address] [place] [address] Care Team Providers Name Role Phone Sohan Winters MD Primary Care Provider [phone] Encounter Details Date Type Department Care Team Description 12/15/2020 Orders Only [facility] [place] [place] Cht Social Work er, [facility] [address] [place] [address] Social History Tobacco Use Types [...] as of this encounter Progress Notes Shanon Ladn - 12/15/2020 1150 EST Pt has the number on file but it is not he number it is her partners number. CHT found the VALDEMAR to talk with her mom and partner but it is unclear what is allowed to be discussed. CHT was cautious aboutinfo being discussed and only stated that CHT was calling about further treatment for pt. The mom stated to call back the other number and leave a message and not talk about anything else as she is not clear of what her daughter has discussed with her partner. CHT called back the Alee number which isthe contact number for pt and left a brief non informative message with name and number to call backon. documented in this encounter Plan of Treatment Upcoming Encounters Date Type Specialty Care Team Description 06/25/2022 Telemedicine Family Medicine Chandrika Harrison MD Arrived [address] [place] [phone] (Wo rk) documented as of this encounter Visit Diagnoses Not on filedocumented in this encounter Care Teams Bay Stocker Relationship Specialty Start Date End Date Sohan Winters MD PCP - General 11/13/14 04/29/21 [address] [place] [address] documented as of this encounter
--- OUTSIDE RECORDS SUMMARY | 2022-06-24 11:48 | XMS_ITS | Encounter Summary ---
:2000 Author Organization [facility] Address [address] [place] [address] Care Team Providers Name Role Phone Sohan Winters MD Primary Care Provider [phone] Reason for Visit Reason Onset Date Comments Results 03/06/2021 Encounter Details Date Type Department Care Team Description 03/06/2021 Telephone [facility] Drea Brannon RN Results Health [address] [place], [place] [id number] Social History Tobacco Use Types Packs/Day Years [...] Telephone Encounter - Naz Padilla RN - 03/10/2021 0851 EDT Pt called office - had a new phone number. Chart updated. Reviewed results and plan. Pt will discusswith her partner. Pt will picker machine operator flagyl. Pt will call back with questions or concerns. elephone Encounter - Naz Padilla RN - 03/09/2021 0859 EDT Attempted to call; unable to LM. Pt does not have Mychart. Letter drafted and sent. elephone Encounter - Jessenia Weinberg CNM - 03/06/2021 1637 EDT I called flagyl into her pharmacy and tried to call, but it rang and rang - can you add it to the list to keep trying next week until we reach her. She has a female partner that needs to be treated also. She can make an appointment With us or go to PP (or use her own PCP). Thanks! elephone Encounter - Drea Olmedo RN - 03/06/2021 1529 EDT Received call from Roberto Carlos at [facility]. Pt had trichomonas testing done and [facility] Patel.. Results: POSITIVE. Readback done per protocol and is correct. Tel enc. Sent to [facility] Patel high priority. documented in this encounter Plan of Treatment Upcoming Encounters Date Type Specialty Care Team Description 06/25/2022 Telemedicine Family Medicine Chandrika Harrison MD Arrived [address] [place] [address] [phone] (Wo rk) documented as of this encounter Visit Diagnoses Not on filedocumented in this encounter Care Teams Patient Manager Relationship Specialty Start Date End Date Sohan Winters MD PCP - General 11/13/14 04/29/21 [address] [place] [address] documented as of this encounter
--- OUTSIDE RECORDS SUMMARY | 2022-06-24 11:48 | XMS_ITS | Encounter Summary ---
:2000 Author Organization [facility] Address [address] [place] [address] Care Team Providers Name Role Phone Sohan Winters MD Primary Care Provider [phone] Reason for Visit Reason Onset Date Comments Coordination Of Care 03/27/2021 Encounter Details Date Type Department Care Team Description 03/27/2021 Telephone [facility] - Cht Agriculture Professor, C oordination Of Care [facility] [address] [place] [address] Social History Tobacco Use Types Packs/Day Years [...] Notes Telephone Encounter - Shanon Land - 03/27/2021 1522 EDT CHT received notice that pt is not at the hotel and was offered a place at the alf but did not want to stay at the alf and is staying with others. CHT reached out to the pt case assembler Sol and let her know that CHT can get the reasonable accomodation form filled out for her and ounce this is submitted, pt can get into a hotel. Pt has CHT contacts and will reach out. documented in this encounter Plan of Treatment Upcoming Encounters Date Type Specialty Care Team Description 06/25/2022 Telemedicine Family Medicine Chandrika Harrison MD Arrived [address] [place] [phone] (Wo rk) documented as of this encounter Visit Diagnoses Not on filedocumented in this encounter Care Teams Guest Services Agent Relationship Specialty Start Date End Date Sohan Winters MD PCP - General 11/13/14 04/29/21 [address] [place] [address] documented as of this encounter
--- OUTSIDE RECORDS SUMMARY | 2022-06-24 11:48 | XMS_ITS | Encounter Summary ---
:2000 Author Organization [facility] Address [address] [place] [address] Care Team Providers Name Role Phone Sohan Winters MD Primary Care Provider [phone] Reason for Visit Reason Onset Date Comments Coordination Of Care 02/04/2021 Encounter Details Date Type Department Care Team Description 02/04/2021 Telephone [facility] - Cht Grip Boss, C oordination Of Care [facility] [address] [place] [address] Social History Tobacco Use Types Packs/Day Years [...] Notes Telephone Encounter - Shanon Land - 02/04/2021 1505 EST MAT team reached out to CHT. Pt started up services for treatment today with [facility]. CHT will reach out to TA and work on getting her to come back in for parental care. documented in this encounter Plan of Treatment Upcoming Encounters Date Type Specialty Care Team Description 06/25/2022 Telemedicine Family Medicine Chandrika Harrison MD Arrived [address] [place] [phone] (Wo rk) documented as of this encounter Visit Diagnoses Not on filedocumented in this encounter Care Teams Returned Goods Receiving Clerk Relationship Specialty Start Date End Date Sohan Winters MD PCP - General 11/13/14 04/29/21 [place] [address] documented as of this encounter
--- OUTSIDE RECORDS SUMMARY | 2022-06-24 11:48 | XMS_ITS | Encounter Summary ---
:2000 Author Organization [facility] Address [address] [place] [address] Care Team Providers Name Role Phone Sohan Winters MD Primary Care Provider [phone] Encounter Details Date Type Department Care Team Description 03/06/2021 Orders Only [facility] - [facility] Jessenia Weinberg, [facility] [address] [facility] [address] [place] [address] [address] [place] [phone] (Wo rk) Social History [...] Sig Dispensed Refills Start Date End Date metroNIDAZOLE (FLAGYL) 500 Take 1 Tab by 14 Tab 0 202003/13/2021 mg tablet mouth 2 times daily for 7 days. Take with food documented in this encounter Plan of Treatment Upcoming Encounters Date Type Specialty Care Team Description 06/25/2022 Telemedicine Family Medicine Chandrika Harrison MD Arrived [address] [place] [phone] (Wo rk) documented as of this encounter Procedures Procedure Name Priority Date/Time Associated Comments Diagnosis HEPATITIS C DIAG Routine 03/06/2021 13:37 Results for this [facility] EDT procedure are in the results section. RAPID PLASMA REAGIN Routine 03/06/2021 11:48 Resu lts for this (RPR) WITH REFLEX, S EDT procedu re are in the results section. documented in this encounter Results HEPATITIS C DIAG [facility] (03/06/2021 13:37 EDT) HEP C RNA BY Undetected Undetected IU/mL [facility] Comment: [facility] Result in log IU/mL is Undetected. ADDITIONAL INFORMATION ------ The quantification range of this assay is 15 to 100,00 0,000 IU/mL (1.18 log to 8.00 log IU/mL). Testing was perfor [facility] using the shantel HCV test ([employer]) with the shantel Workable0 System. Test Performed by: [facility] [address] [place] [address] Tube And Rod Straightener: Ashkan Velazco M.D. Ph.D.; CLIA# [id number] Specimen Performing Organization Address City[facility] Code Phon e Number [facility] [address] [place] [address] RAPID PLASMA REAGIN (RPR) WITH REFLEX, S (03/06/2021 11:48 EDT) Pathologist Sig nature APID PLASMA REAGIN - Nonreactive [facility] Specimen Performing Organization Address City/[facility] Code Phon e Number [facility] [address] [place] [address] documented in this encounter Visit Diagnoses Not on filedocumented in this encounter Discontinued Medications Medication Sig Discontinue Reason Start Date End Date metroNIDAZOLE (FLAGYL) 500 Take 500 mg by Therapy completed 020 03/06/2021 mg tablet mouth. documented as of this encounter Care Teams Regional Director Of Admissions Relationship Specialty Start Date End Date Sohan Winters MD PCP - General 11/13/14 04/29/21 [address] [facility] [place] [address] documented as of this encounter
--- OUTSIDE RECORDS SUMMARY | 2022-06-24 11:48 | XMS_ITS | Encounter Summary ---
:2000 Author Organization [facility] Address [address] [place] [address] Care Team Providers Name Role Phone Sohan Winters MD Primary Care Provider [phone] Encounter Details Date Type Department Care Team Description 01/07/2021 Orders Only [facility] Jessenia Weinberg, [facility] [address] [facility] [address] [place] [address] [address] [place] [address] (Wo rk) Social History [...] Sig Dispensed Refills Start Date End Date promethazine (PHENERGAN) Take 1 Tab by mouth 14 Tab 0 01/21/2021 12.5 mg tablet 2 times daily. documented in this encounter Plan of Treatment Upcoming Encounters Date Type Specialty Care Team Description 06/25/2022 Telemedicine Family Medicine Cahndrika Harrison MD Arrived [address] [place] [phone] (Wo rk) documented as of this encounter Visit Diagnoses Not on filedocumented in this encounter Care Teams Microsoft Exchange Administrator Relationship Specialty Start Date End Date Sohan Winters MD PCP - General 11/13/14 04/29/[address] [place], [place] [address] [address] documented as of this encounter
--- OUTSIDE RECORDS SUMMARY | 2022-06-24 11:48 | XMS_ITS | Encounter Summary ---
:2000 Author Organization [facility] Address [address] [place] [address] Care Team Providers Name Role Phone Sohan Winters MD Primary Care Provider [phone] Reason for Visit Reason Onset Date Comments Coordination Of Care 03/06/2021 Encounter Details Date Type Department Care Team Description 03/06/2021 Telephone [facility] - Cht Material Stockkeeper Yard, C oordination Of Care [facility] [address] [place] [address] Social History Tobacco Use Types Packs/Day Years [...] Telephone Encounter - Shanon Land - 03/06/2021 1201 EDT CHT introduced pt to Sol. Pt and Sol completed all [facility] paperwork and plan to meet again next week to go over goals, pt stated she needs a psychiatrist and a PCP. CHT will plan to work with pt on getting a PCP and will search for a psychiatrist. CHT plans to meet I with pt at her next appointment for follow up. documented in this encounter Plan of Treatment Upcoming Encounters Date Type Specialty Care Team Description 06/25/2022 Telemedicine Family Medicine Chandrika Harrison MD Arrived [address] [place] [phone] (Wo rk) documented as of this encounter Visit Diagnoses Not on filedocumented in this encounter Care Teams Paymaster Of Purses Relationship Specialty Start Date End Date Sohan Winters MD PCP - General 11/13/14 04/29/[address] [place] [address] documented as of this encounter
--- OUTSIDE RECORDS SUMMARY | 2022-06-24 11:48 | XMS_ITS | Encounter Summary ---
:[address] [facility] Address [address] [place] [address] Care Team Providers Name Role Phone Sohan Winters MD Primary Care Provider [phone] Reason for Referral Consult (3 - 10 Business Days) - Closed Specialty Diagnoses / Procedures Referred By Contact Refer red To Contact Obstetrics Diagnoses Previous delivery affecting History of opioid abuse ([facility]) ([facility]) Supervision of high risk , antepartum Depression affecting in second trimester, antepartum Jessenia Weinberg Wood, Sandra G, APRN CNM Anxiety disorder affecting p regnancy, antepartum Tobacco use affecting in second trimester, antepartum Limited care in second trimester History of hepatitis C CNM [address], [address] [place], [address] [place] [address] [place] [address] Fax: Referral ID Status Reason Start Date Expiration Date Visits V isits Requested Authorized [id number] Closed Specialty 03/06/2021 1 1 Services Required Question Answer Reason for Request: 21 y.o. w/ IUP of 25.6 - limited care, social issues, hx of depression/anx iety, OUD currently started MAT Comments MAT provider is currently prescribing ps ych meds until Marlo gets in with pysch. To manage. Is open to therapy. Reason for Visit Reason Comments Routine Visit Marlo reports a few concern s today. She states her eczema has worsened and started to spre ad up her legs. She's also worried that she continues to have d ecreased appetite - I'm not really eating. Pt reports n o issues with food access, however she doesn't have the energy to go get food. Pt states she thinks she has BV and would like to be checked today. She also needs refills of her PNV and Phenergan. Encounter Details Date Type Department Care Team Description 03/06/2021 Routine [facility] - Jessenia Weinberg GA: 25w6d [facility], [facility] [address] [place] [address] [facility], [address] [place] [address] (Wo rk) Social History Tobacco Use [...] Sign Reading Time Taken Comments Blood Pressure 94/60 03/06/2021 1057 EDT Pulse - - Temperature - - Respiratory Rate - - Oxygen Saturation - - Inhaled Oxygen Concentration - - Weight 87.1 kg (192 lb) 03/06/2021 1057 EDT Height 172.7 cm (5' 7.99) 03/06/2021 1057 EDT Body Mass Index 29.2 03/06/2021 1057 EDT documented in this encounter Functional Status [...] 1 mg Take 1 Tab by mouth 30 Tab 4 04/05/2021 tablet tablet daily for 30 days. Please substitute any vitamin with iron that insurance will cover promethazine (PHENERGAN) Take 1 Tab by mouth 28 Tab 0 03/20/2021 25 mg tablet every 12 hours as needed for up to 14 days for Nausea. Pt was taking 2 tabs at a time of 12.5 mg documented in this encounter Progress Notes Jessenia Weinberg CNM - 03/06/2021 1100 EDT Chief Complaint Patient presents with ??? Routine Visit Marlo reports a few concerns today. She states her eczema has worsened and started to spread up her legs. She's also worried that she continues to have decreased appetite - I'm not really eating. Pt reports no issues with food access, however she doesn't have the energy to go get food. Pt states she thinks she has BV and would like to be checked today. She also needs refills of her PNV and Phenergan. S: Marlo Lewis is a 21 y.o. at 25w6d IUP here today for a routine visit. Concerns today: Not feeling hungry for days - needs to get in with psych to manage her meds - MAT provider currently is ordering her psych meds until she finds another provider to manage this. States she thinks she has bacterial vaginosis. Endorses good FM. Denies contractions, LOF, VB. Current Outpatient Medications: ??? bisacodyL (DULCOLAX, BISACODYL,) 10 mg suppository, Place 1 Suppository rectally as needed for up to 5 doses for Constipation. (Patient not taking: Reported on 03/06/2021), Disp: 5 Suppository, Rfl: 0 ??? buprenorphine-naloxone (SUBOXONE) 8-2 mg tablet, sublingual, Place 2 Tabs under the tongue daily., Disp: , Rfl: ??? docusate sodium (COLACE) 100 mg capsule, Take 1 Cap by mouth 2 times daily. (Patient taking differently: Take 100 mg by mouth as needed. ), Disp: 60 Cap, Rfl: 1 ??? ipratropium/albuterol sulfate (IPRATROPIUM-ALBUTEROL INHALATION), Inhale 2 Puffs as directed every 6 hours as needed., Disp: , Rfl: ??? metroNIDAZOLE (FLAGYL) 500 mg tablet, Take 500 mg by mouth., Disp: , Rfl: ??? OLANZapine (ZYPREXA) 5 mg tablet, Take 5 mg by mouth daily., Disp: , Rfl: ??? PREPLUS 27 mg iron- 1 mg tablet tablet, Take 1 Tab by mouth daily., Disp: , Rfl: ??? promethazine (PHENERGAN) 12.5 mg tablet, Take 12.5 mg by mouth as needed for Nausea. Pt takes 2 tabs at a time, Disp: , Rfl: ??? rizatriptan (MAXALT) 10 mg tablet, Take 10 mg by mouth once as needed for Migraine. May repeat in 2 hours if needed, Disp: , Rfl: O: Vitals: BP: 94/60 Height: 172.7 cm (67.99) Weight : 87.1 kg (192 lb) BMI: 29.261 Fundal Height (cm): 25 cm Heart Rate: 150 Movement: Present A: 21 y.o. at 25w6d IUP 1. Limited care in second trimester AMB CONS/FOLLOW UP PSYCH (ADULT PC/FAM MED/OB/NEURO OR EXTERNAL REF) 2. Previous delivery affecting AMB CONS/FOLLOW UP PSYCH (ADULT PC/FAM MED/OB/NEURO OR EXTERNAL REF) 3. History of opioid abuse ([facility]) AMB CONS/FOLLOW UP PSYCH (ADULT PC/FAM MED/OB/NEURO OR EXTERNALREF) 4. Supervision of high risk , antepartum CHLAMYDIA/N. GONORRHOEAE AMPLIFIED RNA MISCELLANEOUS TEST, NON ANGULO VAGINITIS EXAM AMB CONS/FOLLOW UP PSYCH (ADULT PC/FAM MED/OB/NEURO OR EXTERNAL REF) 5. Depression affecting in second trimester, antepartum AMB CONS/FOLLOW UP PSYCH (ADULT PC/FAM MED/OB/NEURO OR EXTERNAL REF) 6. Anxiety disorder affecting , antepartum AMB CONS/FOLLOW UP PSYCH (ADULT PC/FAM MED/OB/NEURO OR EXTERNAL REF) 7. Tobacco use affecting in second trimester, antepartum AMB CONS/FOLLOW UP PSYCH (ADULT PC/FAM MED/OB/NEURO OR EXTERNAL REF) 8. History of hepatitis C AMB CONS/FOLLOW UP PSYCH (ADULT PC/FAM MED/OB/NEURO OR EXTERNAL REF) 9. Suboxone maintenance treatment complicating , antepartum, second trimester ([facility]) P: Additional testing: All labs today Gtt next visit - unable to stay today Vaginitis swab for possible BACTERIAL VAGINOSIS -Yovana Whyte RN in for assistant general manager Still living in hotel with female partner - states relationship is good States she is doing well on her Suboxone dose of 16 mg Shanon Land in touch with MAT program verify dose/visits Referral to Carolina Sanchez for medication management and evaluation Having on-going nausea - needs refill of phenergan - states she is taking 2 tablets BID and PNV - was going to try zofran, but constipation could be an issue with taking suboxone. Offered visit with store specialist and she declined Second and early third trimester precautions reviewed. Signs and symptoms of labor and PreE reviewed. Next AP with GTT visit in 2 Weeks with MD - wanting to TOLAC Call/see sooner PRN. documented in this encounter Plan of Treatment Upcoming Encounters Date Type Specialty Care Team Description 06/25/2022 Telemedicine Family Medicine Chandrika Harrison MD Arrived [address] [place], [place] [phone] (Wo rk) Scheduled Orders Name Type Priority Associated Diagnoses Order S chedule CHLAMYDIA/N. GONORRHOEAE Microbiology Routine Supervision of h igh Ordered: AMPLIFIED RNA risk , 03/06/2021 antepartum MISCELLANEOUS TEST, NON Lab Routine Supervision of hi gh Ordered: ANGULO risk , 03/06/2021 antepartum VAGINITIS EXAM Microbiology Routine Supervision of high Ordere d: risk , 03/06/2021 antepartum Scheduled Referrals Name Type Priority Associated Diagnoses Order S chedule AMB CONS/FOLLOW UP Outpatient Referral STAT Previous camille an Ordered: PSYCH (ADULT delivery affecting PC/FAM MED/OB/NEURO OR History of opioid EXTERNAL REF) abuse ([facility]) Supervision of high risk , antepartum Depression affecting in second trimester, antepartum Anxiety disorder affecting , antepartum Tobacco use affecting in second trimester, antepartum Limited care in second trimester History of hepatitis C documented as of this encounter Visit Diagnoses Diagnosis Limited care in second trimeste r - Primary Previous delivery affecting pre gnancy Previous delivery, unspecified as to episode of care or not applicable History of opioid abuse ([facility]) ([facility]) Opioid abuse, in remission Supervision of high risk , ante Depression affecting in second trimester, antepartum Anxiety disorder affecting , an tepartum Tobacco use affecting in secon d trimester, antepartum History of hepatitis C Personal history of other infectious and parasitic disease Suboxone maintenance treatment complicat ing , antepartum, second trimester ([facility]) ([facility]) documented in this encounter Discontinued Medications Medication Sig Discontinue Reason Start Date End Date buprenorphine-naloxone Place 2 Film under Alternate therapy 03/06/2021 (SUBOXONE) 8-2 mg the tongue daily. sublingual filmIndications: 8 mg daily, acquires from street promethazine (PHENERGAN) Take 12.5 mg by Reorder 03/06/2021 12.5 mg tablet mouth as needed for Nausea. Pt takes 2 tabs at a time PREPLUS 27 mg iron- 1 mg Take 1 Tab by mouth Reorder 1 03/06/2021 tablet tablet daily. documented as of this encounter Historical Medications This list may reflect changes made after this encounter. Medication Sig Dispensed Refills Start Date End Date buprenorphine-naloxone Place 2 Tabs under 0 02/25 (SUBOXONE) 8-2 mg tablet, the tongue daily. sublingual promethazine (PHENERGAN) Take 12.5 mg by 0 03/06/2021 12.5 mg tablet mouth as needed for Nausea. Pt takes 2 tabs at a time OLANZapine (ZYPREXA) 5 mg Take 5 mg by mouth 0 07/31/2021 tablet daily. added in this encounter Care Teams Sports Analyst Relationship Specialty Start Date End Date Sohan Winters MD PCP - General 11/13/14 04/29/21 [address] [place] [address] documented as of this encounter
--- OUTSIDE RECORDS SUMMARY | 2022-06-24 11:48 | XMS_ITS | Encounter Summary ---
:2000 Author Organization [facility] Address [address] [place] [address] Care Team Providers Name Role Phone Sohan Winters MD Primary Care Provider [phone] Michaela Saldaña MD Unavailable Alee Cruz MD Unavailable Murali Burton MD Unavailable Otoniel Coulter MD Unavailable Encounter Details Date Type Department Care Team Description 04/08/2021 Orders Only [facility] Cht Social Work er, [facility] [address] [place] [address] Social History Tobacco Use Types [...] this encounter Progress Notes Shanon Land - 04/08/2021 1153 EDT CHT met briefly with pt, pt went to TA this am and gave a UA for drug testing. Pt stated she has notused in 3 weeks and is doing well. The UA test will come back in a week. TA reports pt will start groups 3x a week on drug use. Pt was alerted to the DCF report given by TA. TA stated pt had not been into treatment since 03/18 and did come in for a Doctor appointment on the . CHT met with pt and asked her to reconnect with the [facility], Latricia, and JOSE Horton. Pt plans to callsoon. Pt wants the correction accomodation form filled out and she will sign the form next week when she comes back in, pt had to leave to catch er ride home. Pt plans to stay in the [place] area and continue her treatment and care at [facility]. documented in this encounter Plan of Treatment Upcoming Encounters Date Type Specialty Care Team Description 06/25/2022 Telemedicine Family Medicine Chandrika Harrison MD Arrived [address] [place] [phone] (Wo rk) documented as of this encounter Visit Diagnoses Not on filedocumented in this encounter Care Teams Retail Service Lead Merchandiser Relationship Specialty Start Date End Date Sohan Winters, PCP - General 11/13/14 1 MD [address] [place], [place] [id number] Michaela Saldaña MD Obstetrics and Gynecology 04/08/[address] [place] [address], [address] [place] [address] Alee Cruz MD Child and Adolescent 04/08/21 Psychiatry Murali Burton MD Sports Medicine 04/08/21 Otoniel Coulter MD Ophthalmology 04/08/21 documented as of this encounter
--- OUTSIDE RECORDS SUMMARY | 2022-06-24 11:48 | XMS_ITS | Encounter Summary ---
:2000 Author Organization [facility] Address [address] [place] [address] Care Team Providers Name Role Phone Sohan Winters MD Primary Care Provider [phone] Reason for Referral Consult (3 - 10 Business Days) - Closed Specialty Diagnoses / Procedures Referred By Contact Refer red To Contact Obstetrics & Gynecology Diagnoses Supervision of high risk in second trimester Opioid use disorder History of depression History of anxiety Jessenia Weinberg Sarah E, MD Marie, CNM [address], [address] [place], [address] [place] [phone] Fax: Referral ID Status Reason Start Date Expiration Date Visits V isits Requested Authorized [id number] Closed Specialty 01/09/2021 1 1 Services Required Question Answer Reason for Request: 20 year old with IUP of 17.6 days - OUD - using street Suboxone - , anger issues, a nxiety/depression - expressed desire for [facility] - no shows at all scheduled appts Encounter Details Date Type Department Care Team Description 01/09/2021 Orders Only [facility] - Jessenia Weinberg rvision of high risk in second trimester (Primary Dx); [facility] Nia, CNM Opioid use disorder (HCC-CMS); [address] History of depression; [place] [address] [address], [address] History of anxiety [phone] [place] [address] Social History Tobacco Use Types Packs/Day [...] Telemedicine Family Medicine Chandrika Harrison MD Arrived [address] [place] [phone] (Wo rk) Scheduled Referrals Name Type Priority Associated Diagnoses Order S chedule AMB CONS/FOLLOW UP Outpatient Referral Routine Supervision of high Ordered: PSYCH (ADULT risk in 01/09/2021 PC/FAM second trimester MED/OB/NEURO OR Opioid use disorder EXTERNAL REF) ([facility]) History of depre ssion History of anxiety documented as of this encounter Visit Diagnoses Diagnosis Supervision of high risk in se cond trimester - Primary Unspecified high-risk Opioid use disorder History of depression Personal history of other mental disorde r History of anxiety Personal history of other mental disorde r documented in this encounter Care Teams House Cleaner Supervisor Relationship Specialty Start Date End Date Sohan Winters MD PCP - General 11/13/14 04/29/21 [address] [facility] [place] [address] documented as of this encounter
--- OUTSIDE RECORDS SUMMARY | 2022-06-24 11:48 | XMS_ITS | Encounter Summary ---
:2000 Author Organization [facility] Address [address] [place] [address] Care Team Providers Name Role Phone Sohan Winters MD Primary Care Provider [phone] Reason for Visit Reason Onset Date Comments Follow-up 01/29/2021 Encounter Details Date Type Department Care Team Description 01/29/2021 Telephone [facility] Lupe Mukherjee MD Follow-up [facility] 130 [facility] 130 [facility] [address], [address] [place] [address] [place] [address] (Wo rk) Social History Tobacco [...] this encounter Miscellaneous Notes Telephone Encounter - Yee Powell RN - 02/03/2021 1336 EST Certified letter composed and signed by and to admin assit to sent. To Shanon, are you able to help reach this pt for coordinating needed care? elephone Encounter - Lupe Mukherjee MD - 02/03/2021 1300 EST Let's send her a certified letter. Then forward to Shanon Shanda to continue to reach out to her. elephone Encounter - Yee Powell RN - 02/03/2021 1152 EST Tried [phone] and got message about calling restrictions and call cannot be completed at this time. Have not heard back from pt. Do you want us to send a letter? Certified or non certified. Return to [place]. elephone Encounter - Yee Powell RN - 01/29/2021 1111 EST Left message for pt to call elephone Encounter - Lupe Mukherjee MD - 01/29/2021 1028 EST Please reach out to Marlo. I cannot tell whether she kept her visit with Dr. Cruz this week. She also should have been seen after her ultrasound so that needs to be rescheduled. She should havean in person provider visit rather than a telemed because she still needs labs and exam. documented in this encounter Plan of Treatment Upcoming Encounters Date Type Specialty Care Team Description 06/25/2022 Telemedicine Family Medicine Chandrika Harrison MD Arrived [address] [place] [phone] (Wo rk) documented as of this encounter Visit Diagnoses Not on filedocumented in this encounter Care Teams Grounds Restoration Specialist Relationship Specialty Start Date End Date Sohan Winters MD PCP - General 11/13/14 04/29/[address] [place] [address] documented as of this encounter
--- OUTSIDE RECORDS SUMMARY | 2022-06-24 11:48 | XMS_ITS | Encounter Summary ---
:2000 Author Organization [facility] Address [address] [place] [address] Care Team Providers Name Role Phone Sohan Winters MD Primary Care Provider [phone] Michaela Saldaña MD Unavailable Alee Cruz MD Unavailable Murali Burton MD Unavailable Otoniel Coulter MD Unavailable Reason for Visit Reason Comments Routine Visit Encounter Details Date Type Department Care Team Description 04/16/2021 Routine [facility] Pau Ray MD GA: 31w5d [facility] [address] [place] [address] [place], [place] [phone] (Wo rk) Social History Tobacco Use [...] Sign Reading Time Taken Comments Blood Pressure 118/58 04/16/2021 0937 EDT Pulse - - Temperature - - Respiratory Rate - - Oxygen Saturation - - Inhaled Oxygen Concentration - - Weight 85.6 kg (188 lb 12.8 oz) 04/16/2021 0937 EDT Height 172.7 cm (5' 7.99) 04/16/2021 0937 EDT Body Mass Index 28.71 04/16/2021 0937 EDT documented in this encounter Functional Status [...] documented as of this encounter Progress Notes Pau Martins MD - 04/16/2021 0940 EDT S: Patient is a 21 y.o. 31w5d. Here with Shanon montiel. No LOF, no VB. Still with some occasional cramping. Also reports greenish vaginal discharge the other day. Wondering if it was her mucusplug. HERBER for trich was negative last visit. No sexual contacts in over a month. +FM. Has not picked up compression stockings (sent in last visit). Did not have blood drawn for HepBSAg today, as planned. States no one ever told me about it and I don't have time to do it now. O: Vitals: BP: 118/58 Height: 172.7 cm (67.99) Weight : 85.6 kg (188 lb 12.8 oz) BMI: 28.774 Albumin: Trace Glucose: Trace Fundal Height (cm): 32 cm Heart Rate: 144 u/s Movement: Present Presentation: Vertex A/P:21 y.o. 31w5d : 1. Supervision of high risk in third trimester Seems to be in an awful kumar to leave today. Reports that she is only able to stay living with her mother for another 2 days. She needs to start looking for a hotel room or I'll be back on the streets. Reviewed preliminary results of growth u/s - 35% (1855g), KIMBERLEY 13.4, cephalic, ant placenta She states that she doesn't know if she will be able to get her blood drawn for HepBSAg anytime soon. I advised her to try. She couldn't wait around to see Shanon Land today. (Shanon did catch up with her as she was leavingto give her housing paperwork.) 2. Previous delivery affecting Would like (very adamant). Attempted to discuss risks associated with trial; she was not beth good listener; took a phone call from her incarcerated partner during our conversation. Advisedthat IOL not ideal for candidate, but prefer to await spontaneous labor. Chances of successful ~74% per calculator. Discussed that HERBER to tertiary care center would be an option for her if she doesn't want to accept risks of delivering at [facility]. She took information sheet and will consider her options prior to signing consent forms at next visit (unless she decides to transfer care). 3. History of opioid abuse ([facility]) Plan for UDS at each visit. - DRUG SCREEN, PRESCRIPTION/OTC, URINE; Future 4. Depression affecting in second trimester, antepartum 5. Anxiety disorder affecting , antepartum 6. Tobacco use affecting in second trimester, antepartum Pau Martins MD 04/16/2021 10:14 documented in this encounter Plan of Treatment Upcoming Encounters Date Type Specialty Care Team Description 06/25/2022 Telemedicine Family Medicine Chandrika Harrison MD Arrived [address] [place] [phone] (Wo rk) documented as of this encounter Visit Diagnoses Diagnosis Supervision of high risk in th ird trimester - Primary Unspecified high-risk Previous delivery affecting pre gnancy Previous delivery, unspecified as to episode of care or not applicable History of opioid abuse ([facility]) ([facility]) Opioid abuse, in remission Depression affecting in second trimester, antepartum Anxiety disorder affecting , an tepartum Tobacco use affecting in secon d trimester, antepartum documented in this encounter Discontinued Medications Medication Sig Discontinue Reason Start Date End Date PNV no.95/ferrous Take 1 Tab by mouth Therapy completed 04/16/2021 fum/folic ac ( daily. ORAL) documented as of this encounter Historical Medications This list may reflect changes made after this encounter. Medication Sig Dispensed Refills Start Date End Date VITAMIN PLUS LOW Take 1 Tab by mouth 0 0 04/13/2021 IRON 27 mg iron- 1 mg daily. tablet tablet promethazine (PHENERGAN) Take 25 mg by mouth 0 05/07/2021 25 mg tabletIndications: 2 times daily. prevention of post-operative nausea and vomiting added in this encounter Care Teams Rib Bender Relationship Specialty Start Date End Date Sohan Winters, PCP - General 11/13/14 [address] [place] [address] Michaela Saldaña MD Obstetrics and Gynecology 04/08/21 [address] [facility], [address] [place] [address] Alee Cruz MD Child and Adolescent 04/08/21 Psychiatry Murali Burton MD Sports Medicine 04/08/21 Otoniel Coulter MD Ophthalmology 04/08/21 documented as of this encounter
--- OUTSIDE RECORDS SUMMARY | 2022-06-24 11:48 | XMS_ITS | Encounter Summary ---
:2000 Author Organization [facility] Address [address] [place] [address] Care Team Providers Name Role Phone Sohan Winters MD Primary Care Provider [phone] Encounter Details Date Type Department Care Team Description 01/21/2021 Orders Only [facility] Cht Social Work er, [facility] [address] [place] [address] Social History Tobacco Use Types [...] of this encounter Progress Notes ShandaShanon - 01/21/2021 1650 EST cht met with pt.CHT supported pt in applying to [facility], [facility], [facility], and next visit will be food stamps, reach up, and PCP. The following visit will focus on Housing. T provided pt with the informationfor her to get a hotel voucher for the current time and to get set up with [facility] for help with housing as well. Pt is stating she is couch surfing and can not stay with partner as she is on Probation and cannot be in the same apartment. Pt is stating that the cell phone is her phone with her partner name on the Voice mail and to just leave a message. Pt asked about mental health help. 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 Pt is in need of a behavioral health referral and mat team referral. Pt is upset about her U/S and that how it did not happen today. cht will take on pt for CVCRT as requested by pt. Pt is in need of doing her IVAP labs and will come back in to get them done when she gets her U/S done. Pt was at the [facility] in past and was dropped due to lack of engagement as she states it. CHT explained that she needs to get in a treatment program or CHT will make a DCF report. Pt understood and is glad to have the warning to get in treatment now. CHT encouraged pt to call today to be set up for treatment. Pt st ates she will call and start treatment. CHT has releases to talk with TA and will call next week to verify that pt has been setup. documented in this encounter Plan of Treatment Upcoming Encounters Date Type Specialty Care Team Description 06/25/2022 Telemedicine Family Medicine Chandrika Harrison MD Arrived [address] [place] [address] [phone] (Wo rk) documented as of this encounter Visit Diagnoses Not on filedocumented in this encounter Care Teams Product Marketing Manager Relationship Specialty Start Date End Date Sohan Winters MD PCP - General 11/13/14 04/29/21 [address] [place] [address] documented as of this encounter
--- OUTSIDE RECORDS SUMMARY | 2022-06-24 11:48 | XMS_ITS | Encounter Summary ---
:2000 Author Organization [facility] Address [address] [place] [address] Care Team Providers Name Role Phone Sohan Winters MD Primary Care Provider [phone] Encounter Details Date Type Department Care Team Description 03/06/2021 [facility] - Cht Behavioral Team [facility] [address] [place] [address] Social History Tobacco Use Types [...] documented as of this encounter Progress Notes Johnna Perea - 03/06/2021 1100 EDT Computer Numerical Control Grinder introduced herself to Marlo during her [facility], sharing play writer's role at [facility] and that Marlo can reach out to at any point. documented in this encounter Plan of Treatment Upcoming Encounters Date Type Specialty Care Team Description 06/25/2022 Telemedicine Family Medicine Chandrika Harrisno MD Arrived [address] [place] [phone] (Wo rk) documented as of this encounter Visit Diagnoses Not on filedocumented in this encounter Care Teams Efficiency Manager Relationship Specialty Start Date End Date Sohan Winters MD PCP - General 11/13/14 04/29/21 [place] [address] documented as of this encounter
--- OUTSIDE RECORDS SUMMARY | 2022-06-24 11:48 | XMS_ITS | Encounter Summary ---
:2000 Author Organization [facility] Address [address] [place] [address] Care Team Providers Name Role Phone Sohan Winters MD Primary Care Provider Michaela Saldaña MD Unavailable Alee Cruz MD Unavailable Murali Burton MD Unavailable Otoniel Coulter MD Unavailable Reason for Visit Reason Onset Date Comments 04/13/2021 bronchitis? Encounter Details Date Type Department Care Team Description 04/13/2021 Telephone [facility] - Jose Saldaña MD (bronchitis?) [facility] [address] [facility] 130 [facility] [address], [address] [place] [address] [place], [place] [phone] Social History Tobacco Use Types Packs/Day [...] Telephone Encounter - Naz Padilla RN - 04/13/2021 0912 EDT Called and spoke with pt. Denies fever, SOB. States has h/o bronchitis with season changes. Has a h/o asthma and is a smoker. Has an inhaler - has used it and it helps some. Does not have a PCP currently. Discussed OTC meds and self care tx for cough/colds as per IVAP booklet. Discussed go to [facility] or ER if she uses inhaler and it doesn't help, has any SOB, or has a fever. Pt verbalized understanding. Pt reports good FM. Denies ctxs/cramping, bleeding/leaking. Has appt in office on 04/16 - will call back sooner with any questions or concerns. elephone Encounter - Rosa Edmonds - 04/13/2021 0859 EDT [phone] She is 31 weeks ap- has horrible cough. What can she take? She gets bronchitis when the seasons change, what cough med can she take? documented in this encounter Plan of Treatment Upcoming Encounters Date Type Specialty Care Team Description 06/25/2022 Telemedicine Family Medicine Chandrika Harrison MD Arrived [address] [place] [phone] (Wo rk) documented as of this encounter Visit Diagnoses Not on filedocumented in this encounter Care Teams Sales And Marketing Intern Relationship Specialty Start Date End Date Sohan Winters, PCP - General 11/13/14 1 MD [address] [place], [place] [phone] Michaela Saldaña MD Obstetrics and Gynecology 04/08/[address] [facility], [address] [place] [address] Alee Cruz MD Child and Adolescent 04/08/21 Psychiatry Murali Burton MD Sports Medicine 04/08/21 Otoniel Coulter MD Ophthalmology 04/08/21 documented as of this encounter
--- OUTSIDE RECORDS SUMMARY | 2022-06-24 11:49 | XMS_ITS | Encounter Summary ---
:2000 Author Organization [facility] [place] [address] Care Team Providers Name Role Phone Arnold Harrison MD Primary Care Provider Encounter Details Date Type Department Care Team Description 01/01/2022 Telephone Ophthalmology at [facility] [place] [phone] [facility] [phone] OPHTHALMOLOGY DE PT [place], [place] [address] (Wo rk) Social History Tobacco Use Types Packs/Day Years Used Date Current Every Day Smoker 0.05 Smokeless Tobacco: Former User Alcohol Use Standard Drinks/Week Comments No 0 (1 standard drink = 0.6 oz pure alcoho l) Sex Assigned at Date Recorded Not on file documented as of this encounter Miscellaneous Notes Telephone Encounter - Alee Segovia - 03/17/2022 11:15 AM EDT Rescheduled. Telephone Encounter - Alee Segovia - 01/01/2022 10:45 AM EST Called pt to reschedule bumped appt on 01/04 with SK non physiological vision loss HVF DR Russo No answer, vm box full, unable to leave ms. Please schedule next avail and place on waitlist. documented in this encounter Plan of Treatment Upcoming Encounters Date Type Specialty Care Team Description 10/19/2022 Office Visit Ophthalmology documented as of this encounter Visit Diagnoses Not on filedocumented in this encounter Care Teams Materials Planning Manager Relationship Specialty Start Date End Date Arnold Harrison MD PCP - General Family Medicine 07/28/[address] [place] [phone] documented as of this encounter
--- OUTSIDE RECORDS SUMMARY | 2022-06-24 11:49 | XMS_ITS | Encounter Summary ---
:2000 Author Organization [facility] Address [address] [place] [address] Care Team Providers Name Role Phone Cindy Guerrero MD Primary Care Provider Reason for Visit Reason Comments Headache Referral from Dr. Montero for follow up with Dr. Coulter for decreased color plates right eye and decreas e in vision. Pt started Amitript 10 mg at bedtime X 1 week. It is not helping. Pt here with Mother Yee and step-father Ron. Pt had a n appt with Dr. Vo tomorrow, was rescheduled to next month. D ecrease in vision R>L since last visit. Headaches/migraines are the same, nothing is helping. Occ floaters both eyes ongoing for years. No flashe s. 10/10 right eyepain with headaches/migraines. Encounter Details Date Type Department Care Team Description 01/10/2014 Office Visit [facility] Otoniel Coulter MD Ophthalmology - [address], [address] [place], [place] [address] [place] [address] [phone] (Wo rk) Social History Tobacco Use Types Packs/Day Years Used Date Current Every Day Smoker 0.5 1 Alcohol Use Standard Drinks/Week Comments No 0 (1 standard drink = 0.6 oz pure alcoho l) Alcohol Habits Answer Date Recorded How often do you have a drink containing alcohol? Monthly or less 05/07/2021 How many drinks containing alcohol do you have on a 1 or 2 05/07/2021 typical day when you are drinking? How often do you have six or more drinks on one Never 05/07/2021 occasion? Comment: Not asked Intimate Partner Violence Answer Date Recorded Within [...] on file documented as of this encounter Discharge Diagnoses Diagnosis 369.8 VISUAL LOSS, ONE EYE NOS[ICD-9-CM] 368.59 COLOR DEFICIENCY NEC[ICD-9-CM] 362.50 MACULAR DEGENERATION NOS[ICD-9-CM ] 362.57 DRUSEN (DEGENERATIVE)[ICD-9-CM] 368.40 VISUAL FIELD DEFECT NOS[ICD-9-CM] 377.10 OPTIC ATROPHY NOS[ICD-9-CM] 784.0 HEADACHE[ICD-9-CM] documented in this encounter Patient Instructions Patient InstructionsMaria Elena Ross - 01/10/2014 11:[address] Vo on Saturday, January 25, 2014 at 9:45 a.m. [phone] [place] [phone] signed by Maria Elena Ross at 01/10/2014 11:10 EST documented in this encounter Progress Notes Otoniel Coulter MD - 01/10/2014 1008 EST I am scribing for Otoniel Coulter MD while he is personally performing the service. Taina Crystal, PAULETTE 01/10/2014 10:08 . Base Eye Exam Visual Acuity Right Left Dist cc 20/60 -2 20/60 +1 Dist ph cc NI NI Near cc J10 J3 Method: Snellen - Linear Correction: Glasses Tonometry Right Left Pressure 17 19 Method: Tonopen Time: 10:04 Comments: Held lids. SM Pupils Dark APD Right 6 None Left 6 None Visual Whelan Right Left Result Full Full Extraocular Movement Right Left Result Full, Ortho Full, Ortho Neuro/Psych Oriented x3: Yes Mood/Affect: Agitated Dilation Both eyes: 0.5% Mydriacyl, 2.5% Phenylephrine @ 9:58 Additional Tests Amsler Right Left Amsler see attached drawings in chart See drawings in chart Color Right Left Color 06/10 03/11 Method: AO PIP Comments: 2nd CV after HVF: 05/11 05/11 AO PIP SM Stereo Fly: - Lan secs Animals: 2/3 Circles: 2/9 Slit Lamp and Fundus Exam Slit Lamp Exam Right Left Lids/Lashes Eye make up Eye make up Conjunctiva/Sclera White and quiet White and quiet Cornea ?TBUT ?TBUT Anterior Chamber Deep and quiet Deep and quiet Iris Round and reactive Round and reactive Refraction Wearing Rx Sphere Cylinder [place] Right -1.00 +0.50 21 Left -1.50 +0.75 4 Age: 3m Type: SVL Manifest Refraction (Auto) Sphere Cylinder [place] Right -0.50 +0.00 180 Left -0.50 +0.00 16 Cornea examined, all 5 layers. ROS, Medications, Allergies reviewed. CVF, Pupil check and EOM's rechecked to include versions & ductions. Lids, lashes, lacrimal and orbit examined. All normal unless otherwise noted. This note has been dictated and scanned. 78D were used for the posterior exam. IMP: Marlo was seen today for headache. Diagnoses and associated orders for this visit: Macular degeneration (senile) of retina, unspecified Optic atrophy, unspecified Headache Vision loss of right eye Drusen of right macula Other Orders - Visual Field Exam, Extended - amitriptyline (ELAVIL) 10 mg tablet; Take 10 mg by mouth daily. Test Performed: HVF 24-2 size V Indications for test: visual field defect/ headache / dyschromatopsia Results/Findings: normal each eye/ fovea 33/36/ await Dr. Vo consultation Plan: ? ERG/ VEP Test Performed: OCT NFL and Macula Indications for test: Decreased vision/ dyschromatopsia/ scotoma Results/Findings: 96/98/ macula dry and normal Plan: await Dr. Vo consult. ? ERG- may need multifocal ERG This note has been dictated and scanned. PLAN: documented in this encounter Consult Notes Otoniel Coulter MD - 01/10/2014 6279 EST DIVISION OF OPHTHALMOLOGY CONSULTATION - 01/10/2014 Cindy Guerrero MD [address] [phone] Guerrero: Our mutual patient was seen again today. As you are well aware, I have been seeing her on Dr Merchant's referral because of decreased vision and decreased color vision. She also has headaches. She has now had a very thorough evaluation by Dr Montero and I know he has been keeping you all in the loop, as well. Specifically, she has a scotoma in her vision and decreased color vision and now some decreasing vision as well. She has had benefit from of optic coherence tomography on a couple of occasions, as well as visual whelan and fluorescein angiogram. This was carried out by Dr Ming Montero. Incidentally, Dr Montero has requested a consultation from you, Dr Vo. I will address our plans pending your consultation in a moment. On today's examination, the patient's vision best corrected with an increasing myopic correction is 20/40 and 20/30. I then went back and actually when we first met on the first occasion on 03/22/2013,she was 20/30 and 20/20 and Simona 2 and Simona 1. Today, she sees best corrected 20/40 and 20/30 and her near vision is Simona 10 and Simona 3. The pupils are equal without afferent defect. Confrontation whelan are full and ocular motility is completely normal. The only area she can see on the Amslergrid is a small area inferiorly and temporally. The remainder of the examination includes a completely clear media. It has normal adnexa. The lens is clear and the capsule is healthy. The vitreous has only some syneresis at best and no cells. Each optic nerve is absolutely pink, healthy and flat. Dr Montero had commented that he thought theremight be some temporal pallor in the right eye. I am not sure that I concur with that, but will keepthat in mind as we proceed on. The vessels are normal. There is no vascular sheathing. Dr Montero hadnoticed a few fine drusen in the macula. There is a good luteal reflex in each eye, and spontaneous venous pulsations are present. The next thing we did was optical coherence tomography. This was repeated and had been carried out previously. The average thickness today is 96 microns in the right and 98 microns in the left. There is no thin area and there is no normative data for a patient of this age, but that is certainly well within the normal limits. The next thing we did was look at the macula and the macula is unremarkable as far as my assessment on OCT. The next thing we is did Leblanc automated visual whelan. The patient could not really see any of the targets with the size 3 test object and thus we aborted that and went to the size 5 test object. With that, the field is absolutely normal. There might be only some slight depression centrally in theright eye as compared to the left. The foveal threshold is 33 dB in the right and is 36 dB in the left. This was a much more reliable field than we had in the past in the right eye, with no fixation losses, no false positives and 1 false negative error. That was much better than what we have had previously. In the left eye, there were 2 fixation losses and 4 false negatives. Having said that, the gene ral form and defect depth was quite normal. There was only one area that is slightly decreased in the right eye. Finally, I then looked at Dr Montero's comment and specifically he sees some mottling in the macula in the right eye. Dr Montero had suggested that he thought there might be some temporal pallor and possibly this is a result of old optic nerve pathology. With that in mind, I think that is unlikely, but I think we should look carefully keeping that in mind. The reason I think that is unlikely is that the nerve fiber layer thickness is so normal. I have recommended that at this point what we should do is await your consultation, Dr Vo. If you do not come up with a conclusion that explains her problem, I will order a visual evoked response and a visual evoked potential. We may need to resort to a multifocal electroretinogram, but we do not have that here and I do not believe it is available at [facility]. This would require a trip to [place]. I certainly would start would these here first. I have not at this point recommend neuroimaging. It is hard to explain her problem on the basis of central nervous system pathology. We can always keep that in reserve as well. Dr Vo, I am going to see that they enclose some of our previous notes. Both Dr Montero and I await your consultation. Once that has been completed, I know that you will send me a note. I will go ahead and order the visual evoked potentials and ERG now, but I will ask it to be after your consultation. If you think you have an explanation without that, then we can cancel it. In summary, the patient has decreased vision and decreased color vision, as well as difficulty with visual whelan. Incidentally, I have looked back through the various visits and the first time her color vision was 2.5/14 and 9.5/14. The second time she could not see the test plate, but was 8/14 and today it was 7/14 and 4/14. The family knows to call me once they have seen Dr Vo and I have time to get his letter, as well. Sincerely, Otoniel Coulter MD 10 53 AM - Otoniel Coulter MD cn Dictation ID: [id number] cc: Jean-Paul Merchant OD, [facility] [address], [address], [place] [address] Carlton Vo MD, [address] [address] Cindy Guerrero MD, [address] [phone] Ming Montero MD, [facility] - Ophthalmology [address] [place] [id number] signed by Otoniel Coulter MD at 01/24/2014 9:08 EST documented in this encounter Plan of Treatment Upcoming Encounters Date Type Specialty Care Team Description 06/25/2022 Telemedicine Family Medicine Chandrika Harrison MD Arrived [address] [place] [phone] (Wo rk) Scheduled Orders Name Type Priority Associated Diagnoses Order S chedule VISUAL FIELD EXAM, Ophthalmology Routine Macular degeneration Ordered: 01/10/2014 EXTENDED (senile) of retina, unspecified Headache Vision loss of right eye Drusen of right macula OCT (OPHTHALMIC Ophthalmology Routine Macular degeneration Ord ered: 01/10/2014 DIGITAL IMAGING, (senile) of retina, POSTERIOR SEGMENT) unspecified Optic atrophy, unspecified Vision loss of right eye Drusen of right macula documented as of this encounter Visit Diagnoses Diagnosis Macular degeneration (senile) of retina, unspecified - Primary Optic atrophy, unspecified Headache Vision loss of right eye Unqualified visual loss, one eye 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 Medication Sig Dispensed Refills Start Date End Date amitriptyline (ELAVIL) 10 Take 25 mg by mouth daily . 0 12/11/2020 mg tablet added in this encounter Eye Exam Visual Acuity (Snellen - Linear) Right eye Left eye Dist cc 20/60 -2 20/60 +1 Dist ph cc NI NI Near cc J10 J3 Correction: Glasses Tonometry (Tonopen, 10:04) Right eye Left eye Pressure 17 19 Held lids. SM Pupils Dark APD Right eye 6 None Left eye 6 None Visual Whelan Right eye Left eye Full Full Extraocular Movement Right eye Left eye Full, Ortho Full, Ortho Neuro/Psych Oriented x3: Yes Mood/Affect: Agitated Dilation Both eyes: 0.5% Mydriacyl, 2.5% Phenylep hrine @ 9:58 Amsler Right eye Left eye see drawings in chart See drawings in art Color Right eye Left eye AO PIP 06/10 03/11 2nd CV after HVF: 05/11 05/11 AO PIP SM Stereo Fly: - Animals: 2/3 Circles: 2/ Lan secs Slit Lamp Exam Right eye Left eye Lids/Lashes Eye make up Eye make up Conjunctiva/Sclera White and quiet White and quiet Cornea ?TBUT ?TBUT Anterior Chamber Deep and quiet Deep and quiet Iris Round and reactive Round and reactive Lens Clear Clear Vitreous Vitreous syneresis Vitreous syneresis Wearing Rx Sphere Cylinder [place] Right eye -1.00 +0.50 21 Left eye -1.50 +0.75 4 Age: 3m Type: SVL Manifest Refraction (Auto) Sphere Cylinder [place] Dist [place] Right eye -1.75 +0.00 180 20/40 Left eye -1.25 +0.00 16 20/30 Care Teams Spacer Type Bar And Segment Relationship Specialty Start Date End Date Cindy Guerrero MD PCP - General 03/13/13 11/12/[address] [place] [phone] documented as of this encounter
--- OUTSIDE RECORDS SUMMARY | 2022-06-24 11:49 | XMS_ITS | Encounter Summary ---
:2000 Author Organization [facility] Address [address] [place] [address] Care Team Providers Name Role Phone Cindy Guerrero MD Primary Care Provider Encounter Details Date Type Department Care Team Description 02/28/2014 Hospital Encounter [facility] Unknown, P MD redd Neurophysiology - [facility] Ubaldo Goodwin MD PhD [address] [facility] [place] [phone] [place] Kiara Lozano MD [address] [place] [address] Social History Tobacco Use Types Packs/Day Years [...] as of this encounter Discharge Diagnoses Diagnosis 377.30 OPTIC NEURITIS NOS[ICD-9-CM] documented in this encounter Medications at Time of Discharge Medication Sig Dispensed Refills Start Date End Date rizatriptan (MAXALT) 10 Take 10 mg by mouth 0 mg tablet once as needed for Migraine. May repeat in 2 hours if needed amitriptyline (ELAVIL) Take 25 mg by mouth daily . 0 12/11/2020 10 mg tablet cyproheptadine Take 4 mg by mouth 0 (PERIACTIN) 4 mg tablet daily. etonogestrel (IMPLANON) Insert 68 mg 0 12/11/2020 68 mg subdermal implant subdermally once. ibuprofen (MOTRIN) 200 Take 200 mg by mouth 0 12/11/2020 mg tablet every 6 hours. documented as of this encounter Discharge Disposition Disposition Code Departure Means Destination Home or Self Detention documented in this encounter Procedure Notes Ubaldo Goodwin MD PhD - 02/28/2014 1200 EDTProcedure(s): EEG- TRANSCRIBED ORDER Electroretinogram Report Referring Physician: Otoniel Coulter Study Number: [id number] Clinical Indication: Patient with difficulty with vision in the right eye. Patient condition: Alert cooperative Visual Acuity: Left 20/30 Right 20/40 Medications Administered: proparacaine 0.5% tropicamide 1% Technical Description: The patient's eye to be tested is numbed, dialted and dark adapted for 30 minutes in a dark room. A DTL fiber electrode is placed in the eye referenced to Fz. A Ganzfeld stimulator is used for all flash stimuli. In the dark adapted state a very dim flash is used to elicit a purerod response. A bright flash is used to elicit a mixed ebonie and cone response and he oscillatory potentials. The eye is then light adapted for 10 minutes and the bright flash elicits a pure cone response and thirty Hz flicker stimulus also provides a pure cone response. Filter settings are: LFF 0.3Hz, HFF 500Hz Findings: See attached data Impression: The ERG responses in photopic scotopic conditions are entirely normal. This would not preclude a focal retinal problem as the testing is for the whole retina. Ubaldo Goodwin MD, PhD ABPN Certified Clinical Neurophysiology Pattern Visual Evoked Potential Report Referring Physician: Otoniel Coulter Study Number: [id number] Clinical Indication: Patient with vision difficulties particularly in the right eye. Patient condition: Alert and cooperative visual acuity: Left 20/30 Right 20/40 Technical Description: Independent monocular stimulation is performed using a pattern reversal stimulus with standard check size of 27 minutes. Filter settings are: LFF 1 Hz, HFF 1,000 Hz. At least twoindependent averages are obtained. Eight recording channels are employed including Oz-Fz as well as O1 and O2 and other lateral posterior channels. Findings: Wave Left (msec) Right (msec) L.D. (msec) P100 79.5 78.0 1.5 L.D. = Latency Difference Impression: The latencies of the pattern reversal visual evoked potentials are entirely normal. There is however, a prominent hemispheric asymmetry suggestive of a left retrochiasmatic process. Lower field quadrant stimulation was undertaken and the right lower quadrant response was very diminutive. The responses between the eyes were quite symmetrical. No evidence of disease anterior to the chiasm is seen. Either unusual anatomy of the occipital lobes or a left retrochiasmatic lesion is suggested. Ubaldo Goodwin MD, PhD ABPN Certified Clinical Neurophysiology documented in this encounter Plan of Treatment Upcoming Encounters Date Type Specialty Care Team Description 06/25/2022 Telemedicine Family Medicine Chandrika Harrison MD Arrived [address] [place] [phone] (Wo rk) Pending Results Name Type Priority Associated Diagnoses Date/Ti me OUTSIDE CD - MRI NEURO Imaging 05/07 13:46 EDT OUTSIDE CD - OTHER NEURO Imaging 08/2014 13:46 EDT Scheduled Orders Name Type Priority Associated Diagnoses Order S chedule OUTSIDE CD - MRI NEURO Imaging One T nga for 1 Occurrences sta rting 05/07/2014 unti l 05/07/2014 OUTSIDE CD - OTHER Imaging One Time for 1 NEURO Occurrences sta rting 05/07/2014 unti l 05/07/2014 documented as of this encounter Procedures Procedure Name Priority Date/Time Associated Diagnosis Comme nts EEG - SCANNED 03/01/2014 13:35 EDT EEG - SCANNED 03/01/2014 13:34 EDT documented in this encounter Visit Diagnoses Not on filedocumented in this encounter Orders Procedures Count Last Ordered Date First Ordered Date EEG - SCANNED 2 03/01/2014 documented in this encounter Care Teams Grid Caster Relationship Specialty Start Date End Date Cindy Guerrero MD PCP - General 03/13/13 11/12/[address] [place] [phone] documented as of this encounter
--- OUTSIDE RECORDS SUMMARY | 2022-06-24 11:49 | XMS_ITS | Encounter Summary ---
:2000 Author Organization [facility] Address [address] [place] [address] Care Team Providers Name Role Phone Cindy Guerrero MD Primary Care Provider Encounter Details Date Type Department Care Team Description 05/17/2013 Office Visit [facility] Prabhakar Montero MD No Show Ophthalmology - [address], [address], [address] [place] [address] [place], [place] [phone] (Wo rk) Social History Tobacco Use Types Packs/Day Years Used Date Former Smoker 0.5 1 Alcohol Use Standard Drinks/Week [...] on file documented as of this encounter Plan of Treatment Upcoming Encounters Date Type Specialty Care Team Description 06/25/2022 Telemedicine Family Medicine Chandrika Harrison MD Arrived [address] [place] [phone] (Wo rk) documented as of this encounter Visit Diagnoses Not on filedocumented in this encounter Care Teams Decal Cutter Relationship Specialty Start Date End Date Cindy Guerrero MD PCP - General 03/13/13 11/12/[address] [place] [phone] documented as of this encounter
--- OUTSIDE RECORDS SUMMARY | 2022-06-24 11:49 | XMS_ITS | Encounter Summary ---
:2000 Author Organization [facility] [place] [address] Care Team Providers Name Role Phone None Primary Care Provider Unavailable Encounter Details Date Type Department Care Team Description 03/18/2018 Encounter Social History Tobacco Use Types Packs/Day Years Used Date Current Every Day Smoker 0.05 Smokeless Tobacco: Former User Alcohol Use Standard Drinks/Week Comments No 0 (1 standard drink = 0.6 oz pure alcoho l) Sex Assigned at Date Recorded Not on file documented as of this encounter Miscellaneous Notes Note - Jane Javed RN - 03/18/2018 2:55 PM EDT This note was copied from a baby's chart. Touched base with this family this morning. Marlo feels that things are going really well. Trinity latched three times over night. She is sleeping comfortably in Marlo's arms. Pumping is also going OK. They will not be able to get their pump from [facility] until Tuesday. Telephoned [facility] birthing unit and they will be able to loan them a Symphony for the weekend. Family is very grateful and eager to go home. Jane javed RN, IBCLC [facility] documented in this encounter Plan of Treatment Upcoming Encounters Date Type Specialty Care Team Description 10/19/2022 Office Visit Ophthalmology documented as of this encounter Visit Diagnoses Not on filedocumented in this encounter Care Teams Pearl Cutter Relationship Specialty Start Date End Date None PCP - General 10/13/17 07/27/21 None documented as of this encounter
--- OUTSIDE RECORDS SUMMARY | 2022-06-24 11:49 | XMS_ITS | Encounter Summary ---
:2000 Author Organization [facility] Address [address] [place] [address] Care Team Providers Name Role Phone Cindy Guerrero MD Primary Care Provider Reason for Referral Consult (Routine) - Specialty Report Received Specialty Diagnoses / Procedures Referred By Contact Refer red To Contact Pain Medicine Diagnoses Low back pain Lumbar radiculopathy Ming Moran PA-C [facility] [address] [place] [address] Phone: [phone] Referral ID Status Reason Start Expiration Visits Visits Date Date Requested Authorized [id number] Specialty Specialty 04/24/2014 1 1 Report Services Received Required Question Answer Reason for Request: right paramedial epidural L5 -S1 adiology Services (Routine) - Closed Specialty Diagnoses / Procedures Referred By Contact Refer red To Contact Diagnoses Low back pain Lumbar radiculopathy Ming Moran PA-C Procedures MR SPINE-LUMBAR AND CONTENTS [address] [place] [phone] Referral ID Status Reason Start Date Expiration Date Visits Requ ested Visits Authorized [id number] Closed 04/24/2014 07/23/2014 1 1 adiology Services (Routine) - Closed Specialty Diagnoses / Procedures Referred By Contact Refer red To Contact Diagnoses Low back pain Lumbar radiculopathy Ming Moran PA-C Procedures L SPINE 4 OR MORE VIEWS [address] [facility] [place] [phone] Referral ID Status Reason Start Date Expiration Date Visits Requ ested Visits Authorized [id number] Closed 04/24/2014 1 1 Reason for Visit Reason Comments Back Pain Leg Pain right Encounter Details Date Type Department Care Team Description 04/24/2014 Office Visit [facility] Ming Moran Low ba ck pain (Primary Dx); Spine Program - [place] Lumbar radiculopathy [place] [address] [facility] Spine [place] [address] [place] [phone] (Wo rk) Social History Tobacco Use Types [...] - Inhaled Oxygen Concentration - - Weight 95.3 kg (210 lb) 04/24/2014 0945 EDT Height 172.7 cm (5' 8) 04/24/2014 0945 EDT Body Mass Index 31.93 04/24/2014 0945 EDT documented in this encounter Discharge Diagnoses Diagnosis 724.2 LUMBAGO[ICD-9-CM] documented in this encounter Discharge Disposition Disposition Code Departure Means Destination Auto Discharge documented in this encounter Progress Notes Ming Moran PA - 04/24/2014 1031 EDT Marlo Lewis is being seen as a consultation from Dr. Barnard. Chief Complaint Patient presents with ??? Back Pain ??? Leg Pain right The primary encounter diagnosis was Low back pain. A diagnosis of Lumbar radiculopathy was also pertinent to this visit. HPI Acute onset of low back pain upon awakening 6 weeks ago with associated right lower extremity symptoms radiating through the lateral thigh, lateral calf and affecting the last 3 toes of her right foot. Her symptoms are constant and vacillating in intensity, no improvement since its onset and exacerbated by standing, sitting, walking and lying down. She finds some relief with tramadol but this wasshort lasting. She has been seeing a physical therapist including pool therapy. She has not seen a chiropractor or received injection therapy. She notes there is no clear delineation between worsening symptoms in the back versus leg. She is accompanied by her mother. HPI Patient Active Problem List Diagnosis ??? Headache ??? Vision loss of right eye ??? Drusen of right macula ??? Macular degeneration (senile) of retina, unspecified ??? Optic atrophy, unspecified ??? Blepharitis, unspecified Past Medical History Diagnosis Date ??? Stye Right eye ??? Stye left eye Past Surgical History Procedure Laterality Date ??? Hernia repair 1998 Anginal hernia ??? Cyst incision and drainage Right right eye History Substance Use Topics ??? Smoking status: Current Every Day Smoker -- 0.50 packs/day for 1 years ??? Smokeless tobacco: Not on file ??? Alcohol Use: No Family History Problem Relation Age of Onset ??? Hypertension Mother ??? * Mother Migraines ??? Arthritis Maternal Grandfather ??? Thyroid Disease Maternal Grandfather ??? Diabetes Neg Hx ??? Glaucoma Neg Hx ??? Macular Degen Neg Hx ??? Retinal Detachment Neg Hx ??? Keratoconus Neg Hx ??? Retinitis Pigmentosa Neg Hx ??? Stroke Neg Hx ??? * Sister migraines Current Outpatient Prescriptions Medication Sig Dispense Refill ??? amitriptyline (ELAVIL) 10 mg tablet Take 25 mg by mouth daily . ??? cyproheptadine (PERIACTIN) 4 mg tablet Take 4 mg by mouth daily. ??? etonogestrel (IMPLANON) 68 mg subdermal implant Insert 68 mg subdermally once. ??? ibuprofen (MOTRIN) 200 mg tablet Take 200 mg by mouth every 6 hours. ??? rizatriptan (MAXALT) 10 mg tablet Take 10 mg by mouth once as needed for Migraine. May repeat in2 hours if needed ??? traMADol (ULTRAM) 50 mg tablet Take 50 mg by mouth 3 times daily. ??? venlafaxine (EFFEXOR) 37.5 mg tablet Take 37.5 mg by mouth daily. No current facility-administered medications for this visit. No Known Allergies Review of Systems Constitutional: Positive for activity change. HENT: Negative for neck pain. Eyes: Negative for visual disturbance. Respiratory: Negative for wheezing. Cardiovascular: Negative for palpitations. Gastrointestinal: Negative for constipation. Genitourinary: Negative for difficulty urinating. Musculoskeletal: Positive for back pain. Skin: Negative for color change. Neurological: Positive for weakness and numbness. Psychiatric/Behavioral: The patient is nervous/anxious. Physical Exam Constitutional: She is oriented to person, place, and time. She appears well- developed and well-nourished. She appears distressed. Eyes: EOM are normal. Cardiovascular: Normal rate. Pulmonary/Chest: Effort normal. Neurological: She is alert and oriented to person, place, and time. Skin: Skin is warm and dry. Psychiatric: Her behavior is normal. Back Exam Comments: Gait is antalgic favoring her right leg No lesions rashes or hair lelia, moderate left lumbosacral palp tenderness Significantly decreased ROM Strength 4/5 with breakaway strength entire right leg soft touch diminished entire right leg Reflexes 1 DP2 babinski is down there is no clonus SLR right: + Left: neg Hips have FROM Neurologic Exam Mental Status Oriented to person, place, and time. Cranial Nerves CN III, IV, Extraocular motions are normal. The prior workup of the patient includes: Assessment Back and right leg symptoms likely result of HNP, right leg symptoms likely an L5 radiculopathy. Thepatient's physical exam reveals 5/5 Belinda signs reflective of a degree of symptom amplification inthis case. PLAN: 1. MRI of the LS spine. 2. Lumbar epidural. 3. I will phone followup with him on the results of the MRI and will follow up in the office p.r.n. 4. Pain management as per primary doctor. 5. Activity as tolerated without limitation. I would recommend a regular exercise program at home. She notes that she exhausted all of her physical therapy visits to pool therapy. When we gain better control of her symptoms, we can start land based therapy. Other Orders Placed This Visit Procedures ??? L SPINE 4 OR MORE VIEWS ??? MR SPINE-LUMBAR AND CONTENTS ??? Amb Consult/Follow Up Pain Interventional Plan: documented in this encounter Plan of Treatment Upcoming Encounters Date Type Specialty Care Team Description 06/25/2022 Telemedicine Family Medicine Chandrika Harrison MD Arrived [address] [place], [place] [phone] (Wo rk) Scheduled Orders Name Type Priority Associated Diagnoses Order S chedule MR SPINE-LUMBAR AND Imaging Routine Low back deneen n Ordered: 04/24/2014 CONTENTS Lumbar radiculopathy Scheduled Referrals Name Type Priority Associated Diagnoses Order S chedule AMB CONS/FOLLOW UP Outpatient Routine Low back pain Ordered: PAIN INTERVENTIONAL Referral Lumbar radiculopathy 04/24/2014 documented as of this encounter Procedures Procedure Name Priority Date/Time Associated Diagnosis Comme nts L SPINE 4 OR MORE Routine 04/24/2014 10:47 Low back pain Results for this VIEWS EDT Lumbar radiculopathy procedu re are in the results section. documented in this encounter Results L SPINE 4 OR MORE VIEWS (04/24/2014 10:47 EDT) Anatomical Region Laterality Modality Other Specimen Narrative [facility] - 03/29 12:13 EDT L SPINE 4 OR MORE VIEWS ??04/24/2014 10:47 AM Signs and Symptoms/Comments: ?? 724.6-Ggqqumq-SVK-9-CM 724.4-Thoracic or lumbosacral neuritis or radiculitis, zkpsjhnpdhy-WRR-7-CM; low b ack pain Comparison: None. Findings: Frontal, lateral, flexion and extension view of the lumbar spine were obtained. There are 5 lumbar type, nonrib-bearing vertebra. The lumbar spine has physiologic alignme nt without evidence of spondylolisthesis or dynamic instability . The vertebral body and disc space height s are preserved. No acute fracture is identified. The sacroiliac joints are unremarkable. Incidentally noted is a posterior spinal fusion defect at S1. Soft tissues are unremarkable. There are some phlebolites in the pelvis . Impression: Unremarkable evaluation of the lumbar sp ine. I have personally reviewed the images an d the above interpretation and agree with the findings. Procedure Note 04/24/2014 L SPINE 4 OR MORE VIEWS 04/24/2014 10:47 AM Signs and Symptoms/Comments: 724.8-Jdcgzpr-QUE-9-CM 724.4-Thoracic or lumbosacral neuritis or radiculitis, sqvwxvnuleh-KSE-0-CM; low b ack pain Comparison: None. Findings: Frontal, lateral, flexion and extension view of the lumbar spine were obtained. There are 5 lumbar type, nonrib-bearing vertebra. The lumbar spine has physiologic alignme nt without evidence of spondylolisthesis or dynamic instability . The vertebral body and disc space height s are preserved. No acute fracture is identified. The sacroiliac joints are unremarkable. Incidentally noted is a posterior spinal fusion defect at S1. Soft tissues are unremarkable. There are some phlebolites in the pelvis . Impression: Unremarkable evaluation of the lumbar sp ine. I have personally reviewed the images an d the above interpretation and agree with the findings. Performing Organization Address City/State/ZIP Code Phon e Number [facility] documented in this encounter Visit Diagnoses Diagnosis Low back pain - Primary Lumbago Lumbar radiculopathy Thoracic or lumbosacral neuritis or radi culitis, unspecified documented in this encounter Historical Medications This list may reflect changes made after this encounter. Medication Sig Dispensed Refills Start Date End Date traMADol (ULTRAM) 50 mg Take 50 mg by mouth 3 times daily as needed . 0 12/11/2020 tablet venlafaxine (EFFEXOR) Take 37.5 mg by 0 12/11/2020 37.5 mg tablet mouth daily. added in this encounter Care Teams Perianesthesia Nurse Relationship Specialty Start Date End Date Cindy Guerrero MD PCP - General 03/13/13 11/12/[address] [place] [phone] documented as of this encounter
--- OUTSIDE RECORDS SUMMARY | 2022-06-24 11:49 | XMS_ITS | Encounter Summary ---
:2000 Author Organization [facility] Address [address] [place] [address] Care Team Providers Name Role Phone Cindy Guerrero MD Primary Care Provider Encounter Details Date Type Department Care Team Description 09/06/2013 Phlebotomy Only [facility] Tender, Sukhwinder ar degeneration (senile) of retina, unspecified; - [facility] Outpatient Optic atrophy, unspecified; [address] [facility] Headache; [place], [place] Vision loss o f right eye [id number] Social History Tobacco Use Types Packs/Day Years [...] Family Medicine Chandrika Harrison MD Arrived [address] [place], [place] [phone] (Wo rk) documented as of this encounter Procedures Procedure Name Priority Date/Time Associated Diagnosis Comme nts SSB ANTIBODIES BY Routine 09/06/2013 15:20 Macular degeneratio n Results for this ELIOT EDT (senile) of retina, procedur e are in unspecified the results Optic atrophy, section. unspecified Headache Vision loss of right eye SSA ANTIBODIES BY Routine 09/06/2013 15:20 Macular degeneratio n Results for this ELIOT EDT (senile) of retina, procedur e are in unspecified the results Optic atrophy, section. unspecified Headache Vision loss of right eye SYPHILIS SEROLOGY Routine 09/06/2013 15:20 Macular degeneratio n Results for this EDT (senile) of retina, procedur e are in unspecified the results Optic atrophy, section. unspecified Headache Vision loss of right eye LYME AB Routine 09/06/2013 15:20 Macular degeneration Res ults for this EDT (senile) of retina, procedur e are in unspecified the results Optic atrophy, section. unspecified Headache Vision loss of right eye PROTEIN S ACTIVITY Routine 09/06/2013 15:20 Macular degenerati on Results for this EDT (senile) of retina, procedur e are in unspecified the results Optic atrophy, section. unspecified Headache Vision loss of right eye METHYLMALONIC ACID Routine 09/06/2013 15:20 Macular degenerati on Results for this EDT (senile) of retina, procedur e are in unspecified the results Optic atrophy, section. unspecified Headache Vision loss of right eye DIFFERENTIAL Routine 09/06/2013 15:20 Results for this EDT procedure are i n the results section. SED RATE Routine 09/06/2013 15:20 Macular degeneration Res ults for this EDT (senile) of retina, procedur e are in unspecified the results Optic atrophy, section. unspecified Headache Vision loss of right eye COMPLETE BLOOD COUNT Routine 09/06/2013 15:20 Res ults for this EDT procedure are i n the results section. COMPLETE BLOOD COUNT Routine 09/06/2013 15:20 Macular degenera tion AND DIFFERENTIAL EDT (senile) of retina, unspecified Optic atrophy, unspecified Headache Vision loss of right eye PROTEIN C ACTIVITY Routine 09/06/2013 15:20 Macular degenerati on Results for this EDT (senile) of retina, procedur e are in unspecified the results Optic atrophy, section. unspecified Headache Vision loss of right eye RHEUMATOID FACTOR Routine 09/06/2013 15:20 Macular degeneratio n Results for this EDT (senile) of retina, procedur e are in unspecified the results Optic atrophy, section. unspecified Headache Vision loss of right eye ANGIOTENSIN CONVERTING Routine 09/06/2013 15:20 Macular degene ration Results for this ENZYME (CIERRA) EDT (senile) of retina, procedur e are in unspecified the results Optic atrophy, section. unspecified Headache Vision loss of right eye C REACTIVE PROTEIN Routine 09/06/2013 15:20 Macular degenerati on Results for this EDT (senile) of retina, procedur e are in unspecified the results Optic atrophy, section. unspecified Headache Vision loss of right eye ANTI NUCLEAR AB (VASQUEZ), Routine 09/06/2013 15:20 Macular degene ration Results for this IFA EDT (senile) of retina, procedur e are in unspecified the results Optic atrophy, section. unspecified Headache Vision loss of right eye BUN Routine 09/06/2013 15:20 Macular degeneration Res ults for this EDT (senile) of retina, procedur e are in unspecified the results Optic atrophy, section. unspecified Headache Vision loss of right eye HOMOCYSTEINE Routine 09/06/2013 15:20 Macular degeneration Res ults for this EDT (senile) of retina, procedur e are in unspecified the results Optic atrophy, section. unspecified Headache Vision loss of right eye FOLATE Routine 09/06/2013 15:20 Macular degeneration Res ults for this EDT (senile) of retina, procedur e are in unspecified the results Optic atrophy, section. unspecified Headache Vision loss of right eye VITAMIN B12 Routine 09/06/2013 15:20 Macular degeneration Res ults for this EDT (senile) of retina, procedur e are in unspecified the results Optic atrophy, section. unspecified Headache Vision loss of right eye CREATININE Routine 09/06/2013 15:20 Macular degeneration Res ults for this EDT (senile) of retina, procedur e are in unspecified the results Optic atrophy, section. unspecified Headache Vision loss of right eye documented in this encounter Results DIFFERENTIAL (09/06/2013 15:20 EDT) Pathologist Sig nature Neutrophils 56.6 % [facility] Lymphocytes 31.3 % [facility] Monocytes 8.9 % [facility] Eosinophils 2.0 % [facility] Basophils 1.2 % [facility] ABS Neutrophils 4.88 K/cmm [facility] ABS Lymphs 2.70 K/cmm [facility] ABS Monocytes 0.77 K/cmm [facility] ABS Eosinophils 0.17 K/cmm [facility] ABS Basophils 0.10 K/cmm [facility] Type of Diff: Automated [facility] Specimen Performing Organization Address City/State/ZIP Code Phon e Number [facility] [address] [place] [address] SERVICES [facility] [address] [place] [address] HEMAGRAM (09/06/2013 15:20 EDT) Pathologist Sig nature WBC 8.61 4.5 - 13.0 K/cmm [facility] RBC 4.87 4.10 - 5.10 M/cmm [facility] Hemoglobin 14.8 12.0 - 16.0 gm/dl [facility] HCT 43.0 36.0 - 46.0 % [facility] MCV 88 78 - 102 fl [facility] MCH 30.4 pg [facility] MCHC 34.5 gm/dl [facility] PLT 266 156 - 312 K/cmm [facility] RDW-CV 12.1 % [facility] Specimen Performing Organization Address City/[facility] Phon e Number [facility] [address] [place] [address] SERVICES [facility] [address] [place] [address] BUN (09/06/2013 15:20 EDT) Pathologist Sig nature BUN 10 8 - 21 mg/dl [facility] Specimen Blood specimen (specimen) Performing Organization Address [facility]/ZIP Code Phon e Number [facility] [address] [place] [address] SERVICES [facility] [address] [place] [address] FOLATE (09/06/2013 15:20 EDT) Pathologist Sig nature Folate 14.7 ng/mL [facility] Comment: Deficient: ??Less than 3.4 ng/mL Indeterminate: ??3.4-5.4 ng/mL Normal: ??Greater than 5.4 ng/mL Specimen Blood specimen (specimen) Performing Organization Address [facility] Phon e Number [facility] [address] [place] [address] SERVICES [facility] [address] [place] [address] CREATININE (09/06/2013 15:20 EDT) Pathologist Sig nature Creatinine 0.60 0.50 - 1.00 mg/dl [facility] GFR, Calculated Age <18 ml/min/1.73m2 [facility] Specimen Blood specimen (specimen) Performing Organization Address [facility] Phon e Number [facility] [address] [place] [address] SERVICES [facility] [address] [place] [address] C-REACTIVE PROTEIN (09/06/2013 15:20 EDT) Pathologist Sig nature C-Reactive Protein <0.7 mg/dl [facility] Specimen Blood specimen (specimen) Performing Organization Address [facility] Phon e Number [facility] [address] [place] [address] SERVICES [facility] [address] [place] [address] ANTI NUCLEAR ANTIBODY (09/06/2013 15:20 EDT) Pathologist Sig nature Anti Nuclear Ab <40 0 - 40 Dils [facility] Specimen Blood specimen (specimen) Performing Organization Address [facility] Phon e Number [facility] [address] [place] [address] SERVICES [facility] [address] [place] [address] HOMOCYSTEINE (09/06/2013 15:20 EDT) Homocysteine 4.6 umol/L [facility] Comment: Reference range may not apply to non-fasting samples. It is not recommended that EDTA and serum from the same patient be used interchangeably. Serum concentrations have been observed to be up to 10% higher than EDTA plasma. ??Reference range may not apply to serum results. Specimen Blood specimen (specimen) Performing Organization Address [facility] Phon e Number [facility] [address] [place] [address] SERVICES [facility] [address] [place] [address] PROTEIN C ACTIVITY (09/06/2013 15:20 EDT) Protein C Clot 112 71 - 199 % [facility] Comment: a. ??Acquired Protein C deficiencies are associated wi th liver disease, oral anticoagulants, acute thrombotic events and DIC. b. ??Results may be affected by plasma heparin levels greater than 1.5 U/mL for UFH and 0.8 for LMWH. c. ??Results may be overesti mated in the presence of direct thrombin inhibitors such as Hirudin (Refludan) and Argatroban (Novastan). d. ??Acute illness and/or thrombosis may influence la t results in an unpredictable manner, therefore results should b e interpreted with caution in this setting. Specimen Blood specimen (specimen) Performing Organization Address [facility] Phon e Number [facility] [address] [place] [address] SERVICES [facility] [address] [place] [address] PROTEIN S ACTIVITY (09/06/2013 15:20 EDT) Protein S 137 64 - 147 % [facility] Comment: LAB a. ??Acquired Protein S deficiencies are associa kelsi with oral anticoagulants, acute thrombotic events, , vitamin K deficien cy, L-aspariginase treatment and inflammatory syndrome. Deficiencies may or may not be present with liver disease and DIC. b. ??Results may be affected by plasma h eparin levels greater than 1.6U/mL for UFH or greater than 1.8 U/mL for LMWH. c. ??Results may be overesti mated in the presence of direct thrombin inhibitors such as Hirudin (Refludan) and Argatroban (Novastan). d. ??Acute illness and/or thrombosis may influence la t results in an unpredictable manner, therefore results should b e interpreted with caution in this setting. e. ??Age and hormonal status may affect the normal ran ge for females. Specimen Blood specimen (specimen) Performing Organization Address [facility] Phon e Number [facility] [address] [place] [address] SERVICES [facility] [address] [place] [address] METHYLMALONIC ACID (09/06/2013 15:20 EDT) Methylmalonic Acid 0.13 <=0.40 [facility] Comment: nmol/mL LAB Performed or Referred by: [facility]: [facility], [address] [place] [address], Lab Dir: Leandro carrero III, MD Specimen Blood specimen (specimen) Performing Organization Address [facility] Phon e Number [facility] [address] [place] [address] SERVICES [facility] [address] [place] [address] SS-B/LA ANTIBODY, IGG, SERUM (09/06/2013 15:20 EDT) Pathologist [facility] SS B/La Ab, IgG, <0.2 <1.0 [facility] Comment: (Negative) U LAB Performed by: [facility] and, [address], [place] [address], Metal Ceiling Builder: Lisa Boone, Ph.D. Specimen Blood specimen (specimen) Performing Organization Address [facility] Phon e Number [facility] [address] [place] [address] SERVICES [facility] [address] [place] [address] SS-A/RO ANTIBODY, IGG, SERUM (09/06/2013 15:20 EDT) Pathologist [facility] SS A/Ro Ab, IgG, <0.2 <1.0 [facility] Comment: (Negative) U LAB Performed by: [facility] [facility] and, [address], [place] [address], Metal Ceiling Builder: Lisa Boone, Ph.D. Specimen Blood specimen (specimen) Performing Organization Address [facility] Phon e Number [facility] [address] [place] [address] SERVICES [facility] [address] [place] [address] RHEUMATOID FACTOR (09/06/2013 15:20 EDT) Pathologist Sig nature Rheumatoid Factor <20 <20 IU/ml [facility] Specimen Blood specimen (specimen) Performing Organization Address [facility] Phon e Number [facility] [address] [place] [address] SERVICES [facility] [address] [place] [address] SYPHILIS SEROLOGY (09/06/2013 15:20 EDT) Syphilis Serology Interpretation: [facility] NonreactiveComment: Reference Range: Nonreactive Specimen Blood specimen (specimen) Performing Organization Address [facility] Phon e Number [facility] [address] [place] [address] SERVICES [facility] [address] [place] [address] LYME AB (09/06/2013 15:20 EDT) Pathologist Sig nature Lyme AB Interpretation: [facility] NegativeComment: Reference Range: Negative Specimen Blood specimen (specimen) Performing Organization Address [facility] Phon e Number [facility] [address] [place] [address] SERVICES [facility] [address] [place] [address] ANGIOTENSIN CONVERTING ENZYME (CIERRA) (09/06/2013 15:20 EDT) Angiotensin 11 U/L [facility] Comment: LAB (Note) -- REFERENCE VALUE -- The reference interval for pediatric patients may be up to 50% higher than that of adults (8-53 U/L). Performed by: [facility], [address], [place] [address], Metal Ceiling Builder: Lisa Boone, Ph.D. Specimen Blood specimen (specimen) Performing Organization Address [facility]/ZIP Code Phon e Number [facility] [address] [place] [address] SERVICES [facility] [address] [place] [address] SED. RATE:WESTERGREN (09/06/2013 15:20 EDT) Pathologist Sig nature Sed. Rate Westergren 2 0 - 20 mm/hr [facility] Specimen Blood specimen (specimen) Performing Organization Address City/[facility]/ZIP Code Phon e Number [facility] [address] [place] [address] SERVICES [facility] [address] [place] [address] VITAMIN B12 (09/06/2013 15:20 EDT) Pathologist Sig nature Vitamin B-12 461 211 - 911 pg/ml [facility] Specimen Blood specimen (specimen) Performing Organization Address City/[facility]/ZIP Code Phon e Number [facility] [address] [place] [address] SERVICES [facility] [address] [place] [address] documented in this encounter Visit Diagnoses Diagnosis Macular degeneration (senile) of retina, unspecified Optic atrophy, unspecified Headache(784.0) Headache Vision loss of right eye Unqualified visual loss, one eye documented in this encounter Care Teams Jute Bag Sewer Relationship Specialty Start Date End Date Cindy Guerrero MD PCP - General 03/13/13 11/12/[address] [place] [phone] documented as of this encounter
--- OUTSIDE RECORDS SUMMARY | 2022-06-24 11:49 | XMS_ITS | Encounter Summary ---
:2000 Author Organization [facility] Address [address] [place] [address] Care Team Providers Name Role Phone Cindy Guerrero MD Primary Care Provider Reason for Visit Reason Comments Back Pain right sided low back pain Leg Pain right leg pain Consult (Routine) - Specialty Report Received Specialty Diagnoses / Procedures Referred By Contact Refer red To Contact Pain Medicine Diagnoses Low back pain Lumbar radiculopathy Ming Moran PA-C [facility] [address] [address] [facility] [place] [address] Phone: [phone] Referral ID Status Reason Start Expiration Visits Visits Date Date Requested Authorized [id number] Specialty Specialty 04/24/2014 1 1 Report Services Received Required Encounter Details Date Type Department Care Team Description 05/10/2014 Office Visit [facility] - Unknown, Pr MD jimi Lumbar radicular [facility] Jean-Paul Hansen MD [address] [place] [address] pain (Primary Dx) [facility] [address] [address] Social History Tobacco Use Types Packs/Day Years [...] Sign Reading Time Taken Comments Blood Pressure 121/79 05/13/2014 0830 EDT Pulse 75 05/13/2014 0830 EDT Temperature 36.8 ??C (98.3 ??F) 05/13/2014 0830 EDT Respiratory Rate 16 05/13/2014 0830 EDT Oxygen Saturation - - Inhaled Oxygen Concentration - - Weight 90.7 kg (200 lb) 05/13/2014 0830 EDT Height 172.7 cm (5' 8) 05/13/2014 0830 EDT Body Mass Index 30.41 05/13/2014 0830 EDT documented in this encounter Patient Instructions Patient InstructionsJohnna Gambino RN - 05/10/2014 13:15 EDT [facility] [address] [address] Patient Instructions You have had your lumbar Transforaminal Epidural Steroid Injection. The purpose of this procedure has been to place medication which may help relieve your pain. Steroid may be used to decrease the swelling and nerve irritation which may be causing your pain. The following information should help you over the next few days regarding what you may expect. Please take it easy for the rest of today. DO NOT drive a car for the remainder of the day. If you feel sore where the needle(s) entered for the block or develop a flare- up of pain over the next few days, please use ice on the area. You may leave the ice on for up to 20 minutes at a time. Donot use heat, as this may cause swelling. As long as your primary doctor has indicated no restrictions, you may take a mild pain medicine, such as acetaminophen (Tylenol), ibuprofen (Advil, Nuprin, Motrin IB, etc.) or aspirin, if needed. The steroid injection usually takes a few days to become effective. On average, you may notice somerelief in 3 -5 days. However, it may take up to 10 ??? 14 days to know whether the injection was helpful. If the block causes numbness/weakness, it should wear off within a few hours. If the area that the needle(s) were inserted becomes hot, red, swollen, or increasingly tender, or if you develop a fever (100.5 or greater) or chills along with these symptoms, please call our officeimmediately. If you develop increasingly severe neck/back pain, continued numbness or weakness of the arms/legs or changes in your bladder or bowel functions, please call our office at once. Instructions for follow-up If you have any questions about your block, please call Patient Education Topic: Method: Handout and Verbal Taught to: Patient Barriers: None Outcomes: independent Signature: Johnna Gambino RN documented in this encounter Progress Notes Jean-Paul Hansen MD - 05/14/2014 1304 EDT Patient Name: Marlo Lewis : 2000 Date of Service: 05/10/2014 Service Clerk: Seven Morales DO [employer]: Jean-Paul Hansen MD Procedure: Epidural steroid injection at L5-S1 Interval History: Ms. Lewis presents at the request of Ming Moran for evaluation and treatment of her chronic right leg pain. The pain starts in the low back and radiates to the posterior thigh and leg into the foot. This pain has been present for 8 week(s) and is described as throbbing, aching, cramping and shooting in character. The average pain intensity is 10/10 and is aggravated by physicalactivities. Resting/lying down alleviates the pain. This pain has not responded to conservative measures, including PT and tramadol. She was seen by Mr Moran in ortho-spine who referred her for an MARIALUISA. Her mother is present today. Allergies: No Known Allergies ROS: Negative for any fever, chills, nausea/vomiting, headaches, chest pain, palpitations, shortness of breath, bladder/bowel incontinence, easy bruising, bleeding, anti-coagulation or known recent infections. Physical Exam: Vital signs: BP 121/79 Pulse 75 Temp(Src) 36.8 ??C (98.3 ??F) (Tympanic) Resp 16 Ht 172.7 cm(68) Wt 90.719 kg (200 lb) BMI 30.42 kg/m2 Patient is alert, oriented x 3 and conversant. Able to stand and ambulate with mild difficulty. Gait is antalgic Cranial nerve exam is normal Cardiac reveal regular rate and rhythm. Lungs no distress, regular rate Lumbar spine is tender to palpation. Examination of the lower extremities reveal normal strength. No gross sensory deficits. Assessment: 1. Lumbar radicular pain Plan: Proceed with epidural steroid injection at L5-S1 under fluoroscopy. Followup: The patient plans to follow-up with Ming Moran in the department of Orthopedics and we will be available for further evaluation and/or injections as necessary. PROCEDURE: The patient gave informed written consent to proceed with this procedure following a detailed discussion of the risks and benefits associated with epidural steroid injection in the spine. The patient was then placed in the prone position, the skin over the area was prepped with chlorhexadine, and the s ite was draped with sterile towels. Strict sterile technique was maintained throughout the procedure. A sheffield moment was performed with full staff present to identify the patient, verify the procedurebeing performed, and review allergies. Fluoroscopy was used to visualize the L5-S1 disc space. The skin and subcutaneous tissue over this level was anesthetized by infiltration of 2% lidocaine. An 18 guage touhy needle was inserted under fluoroscopic guidance by coaxial technique and advanced towards the interspace. Loss of resistance with normal saline was used to find the epidural space. One pass was required and there was no paresthesia. Contrast dye was injected under live fluoroscopy demonstrating a typical epidural pattern with no evidence of intravascular or intrathecal injection. After negative aspiration, 80 mg Depo-Medrol and 2 ml normal saline were injected. The needle was then flushed and withdrawn. The patient tolerated the procedure well, there were no apparent complications, and she was discharged in stable condition. Written and verbal discharge instructions were reviewed with the patient prior to discharge. Attending attestation: I saw and examined the patient with the resident/fellow. I agree with the findings and plan of care documented in the resident's/fellow's note. I was present and participated during the entire procedure. Seven Morales DO Megan Calderon - 05/13/2014 0833 EDT [facility] Rooming Note Does patient have a Library Supervisor? yes Is patient NPO? (Solids since midnight & liquids for 4 hrs) na Blood Thinners: Is patient on Blood Thinners? no If yes, taking? If stopped, who authorized stopping? Related comments: Infections: Any recent infections, fever of illnesses? no If on antibiotics, is it 7-10 days past the date of completion of antibiotics? no : (for females of child-bearing age) Is there a chance current ? no Other: documented in this encounter Plan of Treatment Upcoming Encounters Date Type Specialty Care Team Description 06/25/2022 Telemedicine Family Medicine Chandrika Harrison MD Arrived [address] [place] [phone] (Wo rk) documented as of this encounter Visit Diagnoses Diagnosis Lumbar radicular pain - Primary Thoracic or lumbosacral neuritis or radi culitis, unspecified documented in this encounter Administered Medications Inactive Administered Medications - up to 3 most recent administrations Medication Order MAR Action Action Date Dose Rate Site bupivacaine (PF) (MARCAINE) Given by Other 05/10/2014 13:48 EDT 1.25 mg 0.25 % (2.5 mg/mL) injection 1.25 mg 1.25 mg (0.5 mL), epidural, NOW X1, 1 dose, On Tue05/10/14 at 1415, Routine methylPREDNISolone ACETATE Given by Other 05/10/2014 13:48 EDT 80 mg (DEPO-MEDROL) injection 80 mg 80 mg, intra-articular, NOW X1, 1 dose, On Tue05/10/14 at 1415, Routine documented in this encounter Care Teams Firer Low Pressure Relationship Specialty Start Date End Date Cindy Guerrero MD PCP - General 03/13/13 11/12/[address] [place] [phone] documented as of this encounter
--- OUTSIDE RECORDS SUMMARY | 2022-06-24 11:49 | XMS_ITS | Encounter Summary ---
:2000 Author Organization [facility] [place] [address] Care Team Providers Name Role Phone None Primary Care Provider Unavailable Reason for Visit Auth/Cert Specialty Diagnoses / Procedures Referred By Contact Refer red To Contact Diagnoses malpresentation Procedures PRO DELIVERY ONLY @ DELIVERY (WRVU 16.13) Referral ID Status Reason Start Date Expiration Date Visits Requ ested Visits Authorized [id number] 1 1 Encounter Details Date Type Department Care Team Description 03/14/2018 - Hospital Birthing Liseth Bales sa, MD [address] [place] [address] OBSTET[place] [address] , 03/17/2018 Encounter Elisha Cain MD [facility] DR OBSTETRICS & [place] [address] unspecified [facility] [place] [id number] Social History Tobacco Use Types Packs/Day Years Used Date Current Every Day Smoker 0.05 Smokeless Tobacco: Former User Alcohol Use Standard Drinks/Week Comments No 0 (1 standard drink = 0.6 oz pure alcoho l) Sex Assigned at Date Recorded Not on file documented as of this encounter Last Filed Vital Signs Vital Sign Reading Time Taken Comments Blood Pressure 121/81 03/17/2018 10:39 AM EDT Pulse 59 03/17/2018 10:39 AM EDT Temperature 36.4 ??C (97.5 ??F) 03/17/2018 10:39 AM EDT Respiratory Rate 18 03/17/2018 10:39 AM EDT Oxygen Saturation 100% 03/17/2018 10:38 AM EDT Inhaled Oxygen Concentration - - Weight 82.1 kg (181 lb) 03/14/2018 7:00 AM EDT Height 172.7 cm (5' 8) 03/14/2018 7:00 AM EDT Body Mass Index 27.52 03/14/2018 7:00 AM EDT documented in this encounter Discharge Summaries Sohan Fulton MD - 03/17/2018 3:58 PM EDT Images from the original note were not included. Discharge Summary Patient Name: Marlo Lewis Patient Age: 18 y.o. Language: Hungarian Race: White Ethnicity: Not nor Admit date: 03/14/2018 Discharge date and time: 03/17/2018 Attending Physician: Elisha Barr MD Discharge Physician: Ansley Hartley MD Care Provider: Brodie Follow-up Recommendations for Providers: -- 2 week depression screening call -- 6 week visit Inpatient Provider Contact Information: [facility] [place] [place] NURSE PRACTICAL Department, Discharge Diagnoses (Hospital Problems) and Secondary Diagnoses (Chronic Problems) Active Hospital Problems Diagnosis ??? Resolved Hospital Problems Diagnosis Date Resolved No resolved problems to display. Active Non-Hospital Problems Diagnosis ??? Substance use disorder ??? Opioid dependence ??? Blurred vision, right eye ??? Retinal pigment epitheliopathy Operations/Major Procedures: 03/14/18 PLTCS Indication for Admission: IUGR in the setting of malpresentation History of Presentation: (per admit note cut and paste) Marlo Lewis is a 18 y.o. at 36w1d gestation being admitted for scheduled for IUGR and malpresentation. ?? Marlo had ultrasound yesterday revealing likely IUGR. BPP at that time 07/05. Overall today she feelsnervous and has been nauseous as a result but is otherwise feeling well. Her has been complicated by the followin) Chronic hepatitis C - last viral load November 2017, <15 2) Substance use disorder - on methadone daily 3) Hx of asthma - mild intermittent 4) Hx tobacco use - PPD smoker Hospital Course Including Delivery and Events The pt was taken to the OR and underwent primary low transverse section under spinal analgesia. This resulted in delivery of a liveborn female infant with Apgars of 8 and 8, weighing 2090g. EBL was 600 cc. There were no complications. For further details please see the operative report. Post operative course was uncomplicated. She was able to tolerate a regular diet and ambulate without difficulty. Avilez catheter was removed on POD#1 and pt was able to void without issue. Her pain waswell-controlled on oral medications by the time of discharge. She was discharged home on POD #3 in stable condition with follow-up in place. We discussed discharge instructions and plan of care, all questions answered. Due to her post-operative pain the patient was given a prescription for dilaudid to take only for breakthrough pain not responsive to acetaminophen and ibuprofen. She was counseled regarding the dangers of these medications including sedation which would impair her ability to drive safely. The potential for addiction with continued use of narcotic was discussed and the need to stop use as soon as possible. It was recommended that she promptly destroy unused medication or take them back to drop box locations. The opioid risk assessment was done, opioid informed consent reviewed and signed by patient, PDMP query completed. Discharge instructions discussing the risk of opioids are included in her discharge instructions which are printed and given to the patient at discharge. Delivery Information Information for the patient's : Joshua, Baby Girl [[id number]] INFORMATION Baby Marcin Lewis 03/14/2018 11:37 AM by Lower Segment Transverse Sex: female Gestational Age: 36w1d Horatio Measurements: Weight: 4 lb 9.7 oz (2090 g) APGARS One Minute Five Minutes Ten Minutes Totals: 8 8 EBL: 600mL Vital signs at Discharge: BP: 123/67, Heart Rate: 64, Temp: 37 ??C (98.6 ??F), Resp: 20, BMI (Calculated): 27.52 Height: 172.7 cm (5' 8) (03/14/18 0700) Weight: 82.1 kg (181 lb) (03/14/18 0700) Functional and Cognitive status: Fully ambulatory and cognitively intact Important Studies and Lab Data: Labs: Last 3 wbc, hgb, hct plt Recent Labs 03/15/18 0415 03/14/18 0950 WBC 15.8* 16.0* HGB 11.9 12.8 HCT 34.8* 37.7 PLATELET 268 289 Recent Results (from the past 72 hour(s)) Rapid Drug Screen, Urine (VERNELL Request) Result Value Ref Range VERNELL Conf Requested No VERNELL Requested See Comment Rapid Drug Screen w/o Confirmation, Urine Result Value Ref Range U Barbiturates Screen None Detected None Detected U Benzodiazepines Screen None Detected None Detected U Cocaine Screen None Detected None Detected U Methadone Metabolites Screen Presumptive Pos (A) None Detected U Opiate Screen None Detected None Detected U Cannabinoid Screen Presumptive Pos (A) None Detected U Oxycodone Screen None Detected None Detected U Buprenorphine Screen None Detected None Detected U Fentanyl Screen None Detected None Detected U Tricyclics Screen None Detected None Detected U Ethanol Screen None Detected None Detected U Amphetamines Screen None Detected None Detected U Adulterants Screen None Detected None Detected HIV Screen, 4th Generation Result Value Ref Range HIV-1/2 Ab and Ag Negative Negative Hepatic Function Panel Result Value Ref Range Total Protein 6.2 6.1 - 8.0 gm/dL Albumin 3.3 3.2 - 5.2 gm/dL AST 13 0 - 30 unit/L ALT 5 0 - 30 unit/L Alk Phos 68 40 - 104 unit/L Total Bilirubin 0.3 0.2 - 1.3 mg/dL Bili, Direct 0.1 0.0 - 0.3 mg/dL Hemogram Result Value Ref Range WBC 16.0 (H) 4.0 - 9.5 x10(3)/mcL RBC 4.02 4.00 - 5.21 x10(6)/mcL Hemoglobin 12.8 11.7 - 15.5 gm/dL Hematocrit 37.7 35.7 - 45.8 % MCV 93.8 82.6 - 94.4 fL MCH 31.8 27.1 - 32.0 pg MCHC 34.0 31.7 - 35.0 gm/dL Platelets 289 145 - 357 x10(3)/mcL RDWSD 44.0 37.0 - 46.0 fL RDWCV 12.8 11.5 - 14.1 % MPV 10.7 7.6 - 12.9 fL nRBC % Auto 0.0 % nRBC Abs Auto 0.000 0.000 - 0.000 x10(3)/mcL Differential, Automated Result Value Ref Range Neutrophils % 72.3 % Neutr Abs (ANC) 11.60 (H) 1.70 - 6.10 x10(3)/mcL Lymphocytes % 20.0 % Lymphocytes Abs 3.2 0.9 - 3.2 x10(3)/mcL Monocytes % 5.9 % Monocyte Abs 0.9 0.3 - 0.9 x10(3)/mcL Eosinophils % 0.7 % Eosinophils Abs 0.1 0.0 - 0.4 x10(3)/mcL Basophils % 0.6 % Basophils Abs 0.1 0.0 - 0.1 x10(3)/mcL Immature Gran % 0.50 % Jaymie Gran Abs 0.08 (H) 0.00 - 0.04 x10(3)/mcL ABO/Rh Typing Result Value Ref Range ABORh Type A Pos Antibody screen Result Value Ref Range Ab Screen Interp Negative Expires at 2359 on: 03/17/2018 ABORH Recheck Status Result Value Ref Range ABORH Recheck Order Order Placed ABORH Type Recheck Complete Group B Strep Culture Screen Result Value Ref Range Group B Streptococcus Culture Culture in progress Hemogram Result Value Ref Range WBC 15.8 (H) 4.0 - 9.5 x10(3)/mcL RBC 3.70 (L) 4.00 - 5.21 x10(6)/mcL Hemoglobin 11.9 11.7 - 15.5 gm/dL Hematocrit 34.8 (L) 35.7 - 45.8 % MCV 94.1 82.6 - 94.4 fL MCH 32.2 (H) 27.1 - 32.0 pg MCHC 34.2 31.7 - 35.0 gm/dL Platelets 268 145 - 357 x10(3)/mcL RDWSD 44.1 37.0 - 46.0 fL RDWCV 12.7 11.5 - 14.1 % MPV 10.6 7.6 - 12.9 fL nRBC % Auto 0.0 % nRBC Abs Auto 0.000 0.000 - 0.000 x10(3)/mcL Differential, Automated Result Value Ref Range Neutrophils % 66.0 % Neutr Abs (ANC) 10.42 (H) 1.70 - 6.10 x10(3)/mcL Lymphocytes % 21.8 % Lymphocytes Abs 3.4 (H) 0.9 - 3.2 x10(3)/mcL Monocytes % 10.2 % Monocyte Abs 1.6 (H) 0.3 - 0.9 x10(3)/mcL Eosinophils % 1.1 % Eosinophils Abs 0.2 0.0 - 0.4 x10(3)/mcL Basophils % 0.4 % Basophils Abs 0.1 0.0 - 0.1 x10(3)/mcL Immature Gran % 0.50 % Jaymie Gran Abs 0.08 (H) 0.00 - 0.04 x10(3)/mcL Scan, Peripheral Blood Result Value Ref Range Plat Estimate Normal RBC Morphology Normal Studies: None Pending Studies and Lab Data: Final placental pathology Discharge Conditions/Prognosis: good Discharge to: Home Contraceptive Plans: oral progesterone-only contraceptive Allergies at Discharge: Allergies Allergen Reactions ??? Latex Hives ??? Adhesive Tape Other (See Comments) blisters Immunizations Given this Hospitalization: There is no immunization history on file for this patient. Discharge Medications: Your Medications UNREVIEWED medications - Discuss With Your Provider Dose Details albuterol-ipratropium 18-103 mcg/actuation Aero Commonly known as: COMBIVENT Inhale 2 puffs into the lungs every 6 hours as needed. 2 puff Refills: 0 DICLEGIS 10-10 mg Tbec Generic drug: Doxylamine-Pyridoxine Refills: 0 famotidine 20 mg Tab Commonly known as: PEPCID Take 1 tablet by mouth 2 times daily. 20 mg Quantity: 30 tablet Refills: 12 gabapentin 800 mg Tab Commonly known as: NEURONTIN take 1 tablet by mouth twice a day Refills: 0 methadone 10 mg Tab Commonly known as: DOLOPHINE Take 95 mg by mouth daily. 95 mg Refills: 0 vitamin 27 & [id number] 60 mg iron-1 mg Tab Take 1 tablet by mouth daily. 1 tablet Refills: 0 promethazine 25 mg Tab Commonly known as: PHENERGAN take 1 tablet by mouth every 4 hours if needed Refills: 0 triamcinolone 0.1 % Oint Commonly known as: KENALOG Twice daily to itchy rash for two weeks, then take a week off. Then repeat cycle as needed. Spare the face, armpits, groin. Quantity: 454 g Refills: 1 Smoking Status at Discharge: History Smoking Status ??? Current Every Day Smoker ??? Packs/day: 0.05 Smokeless Tobacco ??? Former User Instructions Given to Patient at Discharge: Patient Instructions Patient Instructions Follow-up: Six weeks care provider Activity: Nothing in vagina until bleeding stops Do not lift more than 15 pounds No driving for two weeks if you had a section or if you are taking narcotic medication. Please call your OB provider for the following: Fever more than 100.5 degrees Heavy bleeding that saturates a pad an hour Increased abdominal pain, nausea, shaking chills Redness, increased pain, discharge at incision if you had a delivery. Increased pain in the area of stitches outside your vagina. Hot, hard, tender areas on the breast and feeling generally unwell. Depression Contact Numbers: If you see an pourer metal call: [phone] 9 am - 5 pm, after 5 pm If you see a salt washer harvesting station call: [phone] all hours If you see a family practitioner call: [phone] all hours If you were transferred to our institution for delivery and cannot reach your local OB provider, call the pourer metal numbers. General Instructions None Discharge References/Attachments None documented in this encounter Discharge Instructions Discharge InstructionsChristy Leblanc RN - 03/17/2018 3:58 PM EDT Nursing Inpatient Progress C - Section Follow-up Follow-ups: 2 week phone call and 6 week routine appointment, the clinic will call to schedule an appointment Maternal Discharge Instructions Rest: Although it may seem impossible to get enough rest, simple planning will help. Try to get at least one four hour block of uninterrupted sleep in 24 hours; then plan to rest, and/or sleep when your baby does. Limiting visitors also helps. Fathers and other family members can help by doing housework, caring for other children and/or helping limit visitors. Activity: After delivery, it is safe to climb stairs at home. Do not lift anything heavier than your baby for two weeks. Do not drive for two weeks or while taking pain medicine that contains a narcotic as your reaction time may be decreased. Nutrition: Your diet following the of your baby is as important as it was before the baby was born. Drink a minimum of 6-8 glasses a day. Do not attempt to lose weight during the first six weeks.Continue taking your vitamins until they are gone. Lochia: (Flow) Your flow should be no heavier than a normal period. It will be bright red for 2-3 days and then pinkish and finally colorless. If your flow becomes bright red again, decrease your activity. Do not use tampons until your care provider advises you it is OK. Incision: Wash the incision with soap and water and pat dry. It is normal to have clear or pinkish fluid seep from the incision. Gauze pads or sanitary napkins may help to keep the incision dry if it is located in a fold under your tummy. If the incision has more redness, yellow drainage, or becomes more painful, contact the obstetrics clinic. Breast feeding mothers: Practice careful positioning and frequent feeding as demonstrated in the hospital. The printed information in your packet covers this in detail. Call your doctor or salt washer harvesting station for: ??? Fever more than 100.5 ??? Heavy bleeding that saturates a pad an hour ??? Clots larger than a plum ??? Increased abdominal pain, nausea, shaking chills ??? Increased redness or soreness over your incision Breast with hot, hard, tender areas on the breast plus flu-like symptom ??? depression occurs in a large percentage of women. We encourage you to contact your provider or a member of the nursing staff if you are feeling so overwhelmed that you are unable to care for yourself or your baby. Keep your follow up appointment. You may call the [facility] at any time for guidance or for answers to questions that come up prior to you follow up appointment. Your [facility] [place] [place] Provider can be reached during office hours at ??? Midwives ??? Obstetricians ??? [facility] Follow-up [facility] AFTER OFFICE HOURS for the pourer metal or salt washer harvesting station product safety professional Provider electronic signature confirms that discharge instructions were reviewed with the patient. Acopy was printed and given to the patient. Patient InstructionsLesli Aaron MD - 03/14/2018 10:42 AM EDT Images from the original note were not included. Patient Instructions Follow-up: Six weeks care provider Activity: Nothing in vagina until bleeding stops Do not lift more than 15 pounds No driving for two weeks if you had a section or if you are taking narcotic medication. Please call your OB provider for the following: Fever more than 100.5 degrees Heavy bleeding that saturates a pad an hour Increased abdominal pain, nausea, shaking chills Redness, increased pain, discharge at incision if you had a delivery. Increased pain in the area of stitches outside your vagina. Hot, hard, tender areas on the breast and feeling generally unwell. Depression Contact Numbers: If you see an pourer metal call: [phone] 9 am - 5 pm, after 5 pm If you see a salt washer harvesting station call: [phone] all hours If you see a family practitioner call: [phone] all hours If you were transferred to our institution for delivery and cannot reach your local OB provider, call the pourer metal numbers. documented in this encounter Medications at Time of Discharge Medication Sig Dispensed Refills Start Date End Date triamcinolone (KENALOG) Twice daily to 454 g 1 12/30/19 18 0.1 % OintmentIndications: itchy rash for two Other eczema weeks, then take a week off. Then repeat cycle as needed. Spare the face, armpits, groin. albuterol-ipratropium Inhale 2 puffs into 0 (COMBIVENT) 18-103 the lungs every 6 mcg/actuation inhaler hours as needed. HYDROmorphone (DILAUDID) 2 Take 1-2 tablets by 12 tablet 0 03/17/2018 06/03/2022 mg Tablet mouth every 4 hours as needed for Pain (Severe pain (7-10)). famotidine (PEPCID) 20 mg Take 1 tablet by 30 tablet 12 01/2706/03/2022 Tablet mouth 2 times daily. gabapentin (NEURONTIN) 800 take 1 tablet by 0 06/03/2022 mg TabletIndications: mouth twice a day Supervision of high risk in second trimester vitamin 27 & Take 1 tablet by 0 06/03/2022 [id number]-ON 60 mg mouth daily. iron-1 mg TabletIndications: Supervision of high risk in second trimester methadone (DOLOPHINE) 10 Take 95 mg by mouth 0 06/03/2022 mg TabletIndications: daily. Supervision of high risk in second trimester documented as of this encounter Progress Notes Christy Leblanc RN - 03/17/2018 4:15 PM EDT VSS, bleeding wnl, incision wnl. AVS reviewed with pt, and her questions were answered. Marlo verbalized an understanding of the instructions and follow-up care. Orin Araiza MSW - 03/17/2018 9:58 AM EDT Social Work Note Office of Care Management Follow Up: [facility] has received order this morning and will be contacting pt when they may parts picker pump. Plan: SW will continue to follow. HORACE Leal Pager:[phone] Laurie Montano DO - 03/17/2018 3:13 AM EDT Delivery Note Information for the patient's : Joshua, Baby Girl [[id number]] Delivery Date and Time:03/14/2018 11:37 AM Delivery Type: Lower Segment Transverse ID/CC: Marlo Lewis is a 18 y.o. who is POD#3 s/p pLTCS at 36w1d GA for IUGR and breech presentation, EBL 600 ccs. additionally complicated by FRANCHESCA on methadone, chronic Hep C, asthma, tobacco abuse. Subjective: Marlo reports that she is doing well this morning. Her pain is well controlled on oral medications and she is tolerating a regular diet without nausea or vomiting. She is ambulating and voiding without difficulty and denies BM but endorses passage of flatus. She is pumping for her in the ICN and reports that vaginal bleeding is minimal. Denies chest pain, shortness of breath, or calf tenderness. Review of Systems: 7 point review of systems performed and negative except as detailed above. Last Set of Vitals: Vitals: 03/15/18 2038 03/16/18 1050 03/16/18 2231 03/16/18 2232 BP: 123/67 129/76 116/62 BP Location (NBP): Right arm Patient Position: Pulse: 64 60 Resp: 20 16 Temp: 37 ??C (98.6 ??F) 36.5 ??C (97.7 ??F) 36.7 ??C (98.1 ??F) TempSrc: Oral Oral Oral SpO2: 98% 100% Weight: Height: Weight: 82.1 kg (181 lb) Physical Exam Gen: Appears well, no acute distress Heart: Regular rate and rhythm, no murmurs, rubs, or gallops Lungs: Clear to auscultation bilaterally, no wheezes, rales, or rhonchi Abd: Normoactive bowel sounds, soft, non-tender, non-distended Uterine Fundus: firm, 2 cm below the umbilicus, and minimally tender to palpation Incision: Pfannenstiel incision well approximated with suture and steri-strips; clean, dry, intact Lochia: Minimal lochia rubra on sheryl-pad Extremities: No calf tenderness to palpation Significant Labs: Last 3 wbc, hgb, hct plt Recent Labs 03/15/18 0415 03/14/18 0950 WBC 15.8* 16.0* HGB 11.9 12.8 HCT 34.8* 37.7 PLATELET 268 289 Immunization status: Up to date Assessment & Plan 18 y.o. woman female, POD#3 s/p primary LTCs at 36w1d for IUGR and breech presentation with was complicated by FRANCHESCA on methadone, tobacco use, and hx of asthma. ?? Patient is doing well without problems. ?? Postoperative Hgb 11.9 from 12.8, appropriate for EBL of 600 ccs. ??? Infant nutrition: pumping for in ICN ??? Contraception: oral progesterone-only contraceptive ??? care: 2 week visit for depression and 6 week follow up per routine ??? Dispo: Discharge to home today Assessment Management of Additional Medical Issues ?? FRANCHESCA: continue methadone at outpatient dosing ?? Hx of asthma: avoid hemabate if PPH ?? Tobacco use: Nicorette for nicotine replacement This patient was seen and discussed on rounds. Laurie Montano DO, PGY-1 03/17/2018 Associated attestation - Ansley Hartley MD - 03/18/2018 5:39 PM EDT I have seen and examined the patient, providing lei components as outlined below. I have reviewed the resident???s above note; my evaluation of the patient is below: POD#2 LTCS for IUGR, breech. Pain controlled. Lochia light. Ambulating. Tolerating diet. Voiding. AFVSS Abdomen soft, appropriately tender Incision CDI Ext NT I/R POD#2 CS Routine care Anticipate d/c today Cont. Methadone Social work consult OCPs MD Roberto LUNA Kathleen M, MD - 03/16/2018 6:39 AM EDT Delivery Note Information for the patient's : Joshua, Baby Girl [[id number]] Delivery Date and Time:03/14/2018 11:37 AM Delivery Type: Lower Segment Transverse ID/CC: Marlo Lewis is a 18 y.o. who is POD#2 s/p pLTCs at 36w1d for IUGR and breech presentation. EBL 600 ccs. additionally complicated by FRANCHESCA (on methadone), chronic Hep C, asthma, tobacco abuse. Subjective: Complains of pinching incisional pain. Pain is moderately controlled overall. She is tolerating diet well, urinating and ambulating well. Review of Systems Lochia: small Last Set of Vitals: Most Recent Vitals: 03/15/182037 BP: 123/67 Pulse: 64 Resp: 20 Temp: 37 ??C (98.6 ??F) SpO2: Weight: 82.1 kg (181 lb) Physical Exam Gen: sitting in bed, NAD CV: rrr, no m/r/g Pulm: CTAB Uterine Fundus: firm, 1 cm below umbilicus and appropriately tender. Dressing: clean, dry and intact Incision: covered with dressing, patient would like to remove herself later today Lochia: appropriate Significant Labs: Lab Results Component Value Date ABORH A Pos 03/14/2018 WBC 15.8 (H) 03/15/2018 HCT 34.8 (L) 03/15/2018 HGB 11.9 03/15/2018 Immunization status: Will inquire prior to discharge Assessment & Plan 18 y.o. woman female, POD#2 s/p primary LTCs at 36w1d for IUGR and breech. Postoperative Hgb11.9 from 12.8, appropriate for EBL of 600 ccs. was complicated by FRANCHESCA (methadone), tobacco use, hx of asthma. ?? Patient is doing well without problems. ??? Infant nutrition: pumping for infant in ICN ??? Contraception: oral progesterone-only contraceptive ??? care: 2 week visit for depression and 6 week follow up per routine Assessment Management of Additional Medical Issues ?? FRANCHESCA: continue methadone at outpatient dosing ?? Hx of asthma: avoid hemabate if PPH ?? Tobacco use: Nicorette for nicotine replacement This patient was seen and discussed on rounds. Lesli Aaron MD, PGY-1 03/16/2018 Associated attestation - Marichuy Aparicio MD - 03/16/2018 9:47 AM EDT Attending note I saw patient on rounds and agree with Dr. Aaron's note above. The patient reports feeling well. Her bleeding is diminishing, and she is voiding without difficulty. She has adequate analgesia. She isable to ambulate. Temp: [37 ??C (98.6 ??F)-37.2 ??C (99 ??F)] Heart Rate: [63-64] Resp: [18-20] BP: (123-132)/(60-67) SpO2: [99 %] Heart Rate from SPO2: -- Abdomen: soft, appropriately tender, fundus below umbilicus Wound/dressing: clean, dry, intact Ext: nontender, mod edema Impression: POD 2 after primary at 36 weeks for IUGR doing well. Plan: Continue routine postoperative care. Likely discharge tomorrow MD John Carr Claire A, RN - 03/15/2018 10:46 AM EDT Office of Care Management prevention specialist, Nafisa Cristina, noted that the mother needed to have a breast pump due to her babyborn at 36w1d with IUGR, currently being in the ICN. Order pended to [facility]. Patient stated that she would prefer to parts picker at the [place] location: [address], [place] [address] [place], [place] Office Sylvie Lopez RN Case Manager Pager #[phone] Fazal Guajardo MD - 03/15/2018 9:31 AM EDT Regional Anesthesia Progress Note Date of Encounter: 03/15/2018 Responsible Attending: beny Griggs Staff / Associate Provider: FAZAL GUAJARDO MD ID: Patient is POD# 2 s/p c section for which the patient received bilateral TAP (transversus abdominis plane) blocks for post-operative pain control. Subjective: Today the patient has excellent pain control and at present states pain is 3 out of 10. Patient has been able to tolerate PO analgesics and an oral diet without nausea or vomiting. Patient is without any complaints this morning. Objective: Temp: [36.7 ??C (98.1 ??F)-37.2 ??C (99 ??F)] Heart Rate: [55-105] Resp: [16-18] BP: (107-125)/(51-72) SpO2: [97 %-100 %] Heart Rate from SPO2: [56 bpm-83 bpm] Gen: Patient resting comfortably No bruising, erythema, swelling or discharge at insertion sites. Sensory: Sensation is intact to cold over the anterior abdomen bilaterally No evidence of local anesthetic toxicity Coags: No results found for: INR, PT, PTT Meds: Medication list reviewed Assessment: Patient is s/p TAP blocks for post-operative pain control, currently with excellent paincontrol. Blocks appear to be resolving appropriately. Plan: ?? Block has worn off as of this morning, no residual defecits, no issues with insertion sites. ?? Continue current management per primary service. ?? Patient was instructed to contact Regional Anesthesia Team ([id number]) for any unresolved sensory deficits. ?? Thank you for the opportunity to have participated in the care of this patient. FAZAL GUAJARDO MD Regional Team pager [phone] Lesli Aaron MD - 03/15/2018 6:38 AM EDT Delivery Note Information for the patient's : Joshua Baby Girl [[id number]] Delivery Date and Time:03/14/2018 11:37 AM Delivery Type: Lower Segment Transverse ID/CC: Marlo Lewis is a 18 y.o. who is POD#1 s/p pLTCs at 36w1d for IUGR and breech presentation. EBL 600 ccs. additionally complicated by FRANCHESCA (on methadone), chronic Hep C, asthma, tobacco abuse. Subjective: Complains of incisional and abdominal pain overnight, improved somewhat with Tylenol, Toradol, Dilaudid. Pain is moderately Controlled overall. She is tolerating diet well, urinating and ambulating well. Review of Systems Lochia: small Last Set of Vitals: Most Recent Vitals: 03/15/18 0310 BP: 122/72 Pulse: 55 Resp: 18 Temp: 36.8 ??C (98.2 ??F) SpO2: 97% Weight: 82.1 kg (181 lb) Physical Exam Gen: sitting in bed, NAD CV: rrr, no m/r/g Pulm: CTAB Uterine Fundus: firm, 1 cm below umbilicus and appropriately tender. Dressing: clean, dry and intact Incision: covered with dressing Lochia: appropriate Significant Labs: Lab Results Component Value Date ABORH A Pos 03/14/2018 WBC 15.8 (H) 03/15/2018 HCT 34.8 (L) 03/15/2018 HGB 11.9 03/15/2018 Immunization status: Will inquire prior to discharge Assessment & Plan 18 y.o. woman female, POD#1 s/p primary LTCs at 36w1d for IUGR and breech. Postoperative Hgb11.9 from 12.8, appropriate for EBL of 600 ccs. was complicated by FRANCHESCA (methadone), tobacco use, hx of asthma. ?? Patient is doing well without problems. ??? nutrition: pumping for infant in ICN ??? Contraception: oral progesterone-only contraceptive ??? care: 2 week visit for depression and 6 week follow up per routine Assessment Management of Additional Medical Issues ?? FRANCHESCA: continue methadone at outpatient dosing ?? Hx of asthma: avoid hemabate if PPH ?? Tobacco use: Nicorette for nicotine replacement This patient was seen and discussed on rounds. Lesli Aaron MD, PGY-1 03/15/2018 Associated attestation - Marybel Jc MD - 03/15/2018 11:13 AM EDT I have seen the patient and reviewed the resident's above history and I agree with the details as written. The assessment and plan were formulated in discussion with me and I agree with them as documented. 18 y.o. woman female, POD#1 s/p primary LTCs at 36w1d for IUGR and breech. Pt is doing well.Will continue PP care and if stable and pt desires, might consider D/C tomorrow. MD Lance Hernandez E Rebecca, MD - 03/14/2018 10:10 AM EDT I phoned the referring provider's office (Dasha Cardoza CNM) with an update regarding the patient's admission for delivery. Latonya Lucas MD Maternal Medicine documented in this encounter H&P Notes Lesli Aaron MD - 03/14/2018 7:56 AM EDT Obstetrical Term Admission Note Marlo Lewis is a 18 y.o. at 36w1d gestation being admitted for scheduled for IUGR and malpresentation. HPI: Marlo had ultrasound yesterday revealing likely IUGR. BPP at that time 07/05. Overall today she feels nervous and has been nauseous as a result but is otherwise feeling well. Her has been complicated by the followin) Chronic hepatitis C - last viral load November 2017, <15 2) Substance use disorder - on methadone daily 3) Hx of asthma - mild intermittent 4) Hx tobacco use - PPD smoker Review of Systems- Negative to complete review except as noted in the HPI. Obstetric Review of Systems Total Weight Gain this Not found. Movement: normal Contractions: none Leaking: None Bleeding; spotting dark brown last night, none this AM Preeclampsia signs and symptoms: None Active Hospital Problems Diagnosis ??? Resolved Hospital Problems Diagnosis Date Resolved No resolved problems to display. Active Non-Hospital Problems Diagnosis ??? Substance use disorder ??? Opioid dependence ??? Blurred vision, right eye ??? Retinal pigment epitheliopathy Past Medical History: Diagnosis Date ??? Anxiety depression ??? Asthma ??? Bacterial vaginosis ??? Chlamydia ??? Chronic pain ??? Depression ??? Hepatitis C ??? Migraine ??? 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 Substance use disorder methadone maintenance ??? UTI (urinary tract infection) Past Surgical History: Procedure Laterality Date ??? INGUINAL HERNIA REPAIR ??? LID SURGERY chalazion sx OU ??? TOOTH EXTRACTION ??? UMBILICAL HERNIA REPAIR OB History Para Term AB Living 1 SAB TAB Ectopic Multiple Live Births # Outc Date GA Lbr Ten/2nd Wgt Sex Del Anes PTL Lv 1 Current Prescriptions Prior to Admission Medication Sig Dispense Refill Last Dose ??? famotidine (PEPCID) 20 mg Tablet Take 1 tablet by mouth 2 times daily. (Patient not taking: Reported on 03/02/2018) 30 tablet 12 Not Taking at Unknown time ??? triamcinolone (KENALOG) 0.1 % Ointment Twice daily to itchy rash for two weeks, then take a weekoff. Then repeat cycle as needed. Spare the face, armpits, groin. (Patient not taking: Reported on 02/15/2018) 454 g 1 Not Taking at Unknown time ??? DICLEGIS 10-10 mg Tablet, Delayed Release (E.C.) 0 Taking at Unknown time ??? promethazine (PHENERGAN) 25 mg Tablet take 1 tablet by mouth every 4 hours if needed 0 Taking atUnknown time ??? gabapentin (NEURONTIN) 800 mg Tablet take 1 tablet by mouth twice a day 0 Taking at Unknown time ? ? vitamin 27 & [id number] 60 mg iron-1 mg Tablet Take 1 tablet by mouth daily. Taking at Unknown time ??? methadone (DOLOPHINE) 10 mg Tablet Take 95 mg by mouth daily. Taking at Unknown time ??? albuterol-ipratropium (COMBIVENT) 18-103 mcg/actuation inhaler Inhale 2 puffs into the lungs every 6 hours as needed. Taking at Unknown time Allergies Allergen Reactions ??? Latex Hives ??? Adhesive Tape Other (See Comments) blisters Family History Problem Relation Age of Onset ??? Hypertension Mother ??? Hypertension Maternal Aunt ??? Hypertension Maternal Grandmother ??? Heart Disease Paternal Grandmother ??? Cataracts Neg Hx ??? Diabetes Neg Hx ??? Glaucoma Neg Hx ??? Macular Degeneration Neg Hx ??? Retinal Detachment Neg Hx ??? Amblyopia Neg Hx ??? Strabismus Neg Hx ??? Thyroid Disease Neg Hx ??? Heart Disease Other ??? Cancer Other Social History Occupational History ??? Not on file. Social History Main Topics ??? Smoking status: Current Every Day Smoker Packs/day: 0.05 ??? Smokeless tobacco: Former User ??? Alcohol use No ??? Drug use: Yes Special: Opioids (heroin, pills), Marijuana Comment: FRANCHESCA; treatment with methadone; daily MJ ??? Sexual activity: Yes Partners: Male Immunization History There is no immunization history on file for this patient. Last Set of Vitals: Ht 172.7 cm (5' 8) Wt 82.1 kg (181 lb) BMI 27.52 kg/m2 Physical Exam Gen: AAO, laying in bed, NAD Cardio: nl rhythm, S1, S2, no M/C/R/G Pulm: CTA BL, no W/C/R Abd: +BS, soft, NT, ND, gravid Ext: warm, well-perfused, no SALVADOR or calf tenderness Neuro: grossly intact Uterine Size: S<D Clinical EFW: 4.5# Cervix Exam: Not performed Presentations: Breech, confirmed with u/s at admission Heart Rate Interpretation: Baseline: 140, Variability: moderate, Accels: yes, Decels: none, [place]: no ctx Category: I Lab Results Component Value Date AST 10 12/23/2017 Most Recent Growth Ultrasound Date: 03/13/2018 GA at US: 36w EFW: 1867g (<5%) Growth small for gestational age Amniotic fluid volumenormal Placenta posterior Presentation breech Assessment & Plan Marlo Lewis is a 18 y.o. at 36w1d being admitted for planned for IUGR and breech. ?? Labor State: Not in labor. ?? Heart Rate Assessment: Category 1 ?? Labor management: Proceed with planned c/s ?? GBS Management: None Required Additional Issues ?? FRANCHESCA on methadone: next dose due tomorrow AM, will continue outpatient regimen; VERNELL ordered ?? Hx asthma: ordered for home inhaler, avoid hemabate if PPH ?? Hx Hep C: LFTs sent on admission, last viral load Nov 2017, <15 ?? Tobacco use: will order nicotine replacement This patient was seen and discussed with Dr. Jc, Attending NURSE PRACTICAL. Lesli Aaron MD 03/14/2018 Associated attestation - Marybel Jc MD - 03/14/2018 10:36 AM EDT I have seen the patient and reviewed the resident's above history and I agree with the details as written. The assessment and plan were formulated in discussion with me and I agree with them as documented. 18 y.o. at 36w1d being admitted for planned for IUGR and breech. Pt also with ChronicHep C, substance use disorder on Methadone and chronic smoker of PPD and MJ user. All risks have been discussed with pt and consent has been signed. Will proceed with primary LTCS. Marybel Jc MD documented in this encounter Miscellaneous Notes Plan of Care - Evelyne aPrk RN - 03/17/2018 5:50 AM EDT Problem: Patient Care Overview Goal: Plan of Care Review Outcome: Ongoing (Interventions Implemented as Appropriate) 03/16/18 1809 03/16/182226 Plan of Care Review Progress progress toward functional goals as expected -- Coping/Psychosocial Plan Of Care Reviewed With -- patient;significant other;family OUTCOME EVALUATION NOTE: OUTCOME SUMMARY: Pt recovering well from c/s. Visiting infant in ICN. SO and mother at bedside. Pumping fairly independently. PLAN MOVING FORWARD: Continue to monitor pain. INDIVIDUALIZED FALL PREVENTION INTERVENTIONS: Patient-specific fall risk factors per assessment: [current deficits]: No deficit Assistance [level of assistance required for transfers and ambulation]: independent Supervision [direct monitoring required during toileting and ADLs]: Pt able to reliably call for assistance Surveillance [continuous indirect monitoring]: Purposeful rounding Patient-specific fall prevention interventions for sensory deficits provided, if applicable: CPG GOAL OUTCOME EVALUATION: Goal: Individualization & Mutuality Outcome: Ongoing (Interventions Implemented as Appropriate) 03/17/18 0530 Individualization Patient Specific Preferences Patient Specific Interventions wake up for pumping. Goal: Fall Prevention-Safe Patient Handling Outcome: Ongoing (Interventions Implemented as Appropriate) 03/16/18 1050 03/16/182226 Bernal Fall Risk History of Falling -- 0 Secondary Diagnosis -- 15 Ambulatory Aids -- 0 Intravenous Therapy/Heparin/Saline Lock -- 0 Gait/Transferring -- 0 Mental Status -- 0 Score -- 15 OTHER Bernal Fall Risk -- Low Restraint Interventions Safety Promotion/Fall Prevention -- nonskid shoes/slippers when out of bed;safety round/check completed Positioning Body Position -- independent Activity Activity Type -- up ad carolin Activity Assistance Provided -- independent Assistive Device Utilized none -- Goal: Infection Control Outcome: Ongoing (Interventions Implemented as Appropriate) 03/16/182226 Safety Interventions Isolation Precautions standard precautions maintained Infection Prevention rest/sleep promoted;personal protective equipment utilized;equipment surfaces disinfected;environmental surveillance performed Coping Strategies Supportive Measures active listening utilized;counseling provided;decision- making supported;goal setting facilitated;positive reinforcement provided;problem solving facilitated;relaxation techniques promoted;self-care encouraged;self-responsibility promoted;self-reflection promoted;verbalization of feelings encouraged Goal: Discharge Needs Assessment Outcome: Ongoing (Interventions Implemented as Appropriate) 03/14/18 0803/16/18 18003/17/18 0530 Discharge Needs Assessment Concerns To Be Addressed -- -- substance/tobacco abuse/use concerns Readmission Within The Last 30 Days -- -- no previous admission in last 30 days Provider Choice List(s) Given -- no -- Equipment Needed After Discharge -- none -- Discharge Disposition -- -- still a patient Current Health Anticipated Changes Related to Illness -- -- none Activity/Self Care Review of Systems Equipment Currently Used at Home -- none -- Living Environment Transportation Available family or friend will provide (mom) -- -- Goal: Interdisciplinary Rounds/Family Conf Outcome: Ongoing (Interventions Implemented as Appropriate) 03/17/18 0530 Interdisciplinary Rounds/Family Conf Participants nursing;family Problem: (Adult) Goal: Signs and Symptoms of Listed Potential Problems Will be Absent, Minimized or Managed () Signs and symptoms of listed potential problems will be absent, minimized or managed by discharge/transition of care (reference (Adult) CPG). Outcome: Ongoing (Interventions Implemented as Appropriate) 03/16/18222603/17/18 0530 Problems Assessed () -- all Problems Present () situational response -- Problem: ( Delivery) (Adult) Goal: Signs and Symptoms of Listed Potential Problems Will be Absent, Minimized or Managed () Signs and symptoms of listed potential problems will be absent, minimized or managed by discharge/transition of care (reference ( Delivery) (Adult) CPG). Outcome: Ongoing (Interventions Implemented as Appropriate) 03/17/18 0530 ( Delivery) Problems Assessed ( ) all Problems Present ( ) pain Note - Nafisa Cristina RN - 03/16/2018 7:03 PM EDT This note was copied from a baby's chart. services note: S/O Met with mom and dad briefly at baby Trinity's bedside a little after five this afternoon. Mom was delivering several syringes of milk to baby's bedside and was able to express 30 ml with her most recent pump session. Feels pumping has been going well. She reports that her attempts to latch baby to breast feed have been challenging. She had tried a nipple shield at one time but it did not seem tohelp. Parents planning to step outside for a break and visit with Marlo's mother. Will try to offerlactation support at next feeding session 5:30-6 raiza. Bedside RN will page when parents return for feeding. A Mom feels pumping has been going well, having some difficulty with latching baby with breast visits today. P RECOMMENDATIONS: Pump at least 8 times per 24 hours and record in pumping log provided Breast massage and hand expression before and during pumping Brief heat prior to pumping and ice packs after pumping X 48 hours Bowman oil to nipples prior to pumping Frequent and prolonged maternal-infant skin to skin contact Offer breast visits/feedings as baby cues interest, offer support for first time mom with positioning, latching baby Baby also receiving some bottle feeding and gavage feedings Close support and follow up Nafisa Cristina RN IBCLC [facility] [place] [place] Services Plan of Care - Jessie Roldan RN - 03/16/2018 6:18 PM EDT Problem: Patient Care Overview Goal: Plan of Care Review Outcome: Ongoing (Interventions Implemented as Appropriate) 03/16/18 1050 03/16/18 1809 Plan of Care Review Progress -- progress toward functional goals as expected Coping/Psychosocial Plan Of Care Reviewed With patient;significant other -- OUTCOME EVALUATION NOTE: OUTCOME SUMMARY: Pt out of room most of day visiting in ICN. Late timing on medication r/t pt being off unit -pt instructed to call RN when back in room. Tolerating diet. Ambulating and voiding without difficulty. Pt/pt's mother report dissatisfaction with being moved to double room. Reviewed ability to stay at [facility] once d/c'd. Also gave paperwork r/t hostel in [place] and [employer] pamphlet. PLAN MOVING FORWARD: Discharge tomorrow. INDIVIDUALIZED FALL PREVENTION INTERVENTIONS: Patient-specific fall risk factors per assessment: [current deficits]: Post- operative. Methadone. Narcotic use. Assistance [level of assistance required for transfers and ambulation]: Independent Supervision [direct monitoring required during toileting and ADLs]: NA Surveillance [continuous indirect monitoring]: Purposeful rounding, VS Patient-specific fall prevention interventions for sensory deficits provided, if applicable: NA CPG GOAL OUTCOME EVALUATION: Progressing toward goal. Goal: Individualization & Mutuality Outcome: Ongoing (Interventions Implemented as Appropriate) 03/14/18 0700 Mutuality/Individual Preferences What Anxieties, Fears or Concerns Do You Have About Your Health or Care? no What Questions Do You Have About Your Health or Care? no What Information Would Help Us Give You More Personalized Care? no Goal: Fall Prevention-Safe Patient Handling Outcome: Ongoing (Interventions Implemented as Appropriate) 03/16/18 1050 Bernal Fall Risk History of Falling 0 Secondary Diagnosis 15 Ambulatory Aids 0 Intravenous Therapy/Heparin/Saline Lock 0 Gait/Transferring 0 Mental Status 0 Score 15 OTHER Bernal Fall Risk Low Restraint Interventions Safety Promotion/Fall Prevention fall prevention program maintained;nonskid shoes/slippers when out of bed;safety round/check completed Positioning Body Position independent Activity Activity Type up ad carolin Activity Assistance Provided independent Assistive Device Utilized none Goal: Infection Control Outcome: Ongoing (Interventions Implemented as Appropriate) 03/16/18 1050 Safety Interventions Isolation Precautions standard precautions maintained Infection Prevention environmental surveillance performed;personal protective equipment utilized Coping Strategies Supportive Measures relaxation techniques promoted;self-care encouraged;self- reflection promoted;verbalization of feelings encouraged;active listening utilized Goal: Discharge Needs Assessment Outcome: Ongoing (Interventions Implemented as Appropriate) 03/14/18 0800 03/16/18 1809 Discharge Needs Assessment Provider Choice List(s) Given -- no Equipment Needed After Discharge -- none Discharge Disposition -- still a patient Current Health Anticipated Changes Related to Illness -- none Activity/Self Care Review of Systems Equipment Currently Used at Home -- none Living Environment Transportation Available family or friend will provide (mom) -- Problem: (Adult) Goal: Signs and Symptoms of Listed Potential Problems Will be Absent, Minimized or Managed () Signs and symptoms of listed potential problems will be absent, minimized or managed by discharge/transition of care (reference (Adult) CPG). Outcome: Ongoing (Interventions Implemented as Appropriate) 03/16/18 1050 Problems Assessed () all Problems Present () none Problem: ( Delivery) (Adult) Goal: Signs and Symptoms of Listed Potential Problems Will be Absent, Minimized or Managed () Signs and symptoms of listed potential problems will be absent, minimized or managed by discharge/transition of care (reference ( Delivery) (Adult) CPG). Outcome: Ongoing (Interventions Implemented as Appropriate) 03/16/18 1050 ( Delivery) Problems Assessed ( ) all Problems Present ( ) none Plan of Care - Juany Grullon RN - 03/15/2018 6:16 PM EDT Problem: ( Delivery) (Adult) Goal: Signs and Symptoms of Listed Potential Problems Will be Absent, Minimized or Managed () Signs and symptoms of listed potential problems will be absent, minimized or managed by discharge/transition of care (reference ( Delivery) (Adult) CPG). Outcome: Ongoing (Interventions Implemented as Appropriate) 03/15/18 1810 ( Delivery) Problems Assessed ( ) all Problems Present ( ) pain OUTCOME EVALUATION NOTE: OUTCOME SUMMARY: G1 now P1, delivered via primary c/s yesterday for IUGR and breech presentation. On methadone. H/o IVDA. HCV + with low viral load. Planning on . Infant in ICN. status monitored. Stable. Voiding well and ambulating well about room and unit. pt supported in pumping and encouraged to spend time in ICN with . Has been back and forth to ICN numerous times today. Pumping routinely and independently. LC working with pt. Pain assessed routinely and pain meds administered as needed. Pt raiting pain 07/07 but states that this is an acceptable level. Able to move well with pain at this level. PLAN MOVING FORWARD: Continue to monitor and provide informational and emotional support. INDIVIDUALIZED FALL PREVENTION INTERVENTIONS: Patient-specific fall risk factors per assessment: [current deficits]: Post op c/s, taking narcotics. Assistance [level of assistance required for transfers and ambulation]: independent Supervision [direct monitoring required during toileting and ADLs]: independent Surveillance [continuous indirect monitoring]: Purposeful rounding Patient-specific fall prevention interventions for sensory deficits provided, if applicable: [X] N/A CPG GOAL OUTCOME EVALUATION: Ongoing. Progressing well towards goals Note - Kandi Muhammad RN - 03/15/2018 2:22 PM EDT [facility] to provide support and information regarding pumping recommendations. Mother has 21 mm breast perez and demonstrated good technique with breast massage. She is obtaining ~ 1-2 mls of colostrum per pumping. Praised and encouraged her for her efforts. Encouraged mother to reach out for support when infant is able to go to breast. Encouraged maternal- [id number] contact. RECOMMENDATIONS: Pump at least 8-10 times per 24 hours and record in pumping log provided Breast massage and hand expression before and during pumping Brief heat prior to pumping and ice packs after pumping X 48 hours with physiologic engorgement Bowman oil to nipples prior to pumping Frequent and prolonged maternal-infant skin to skin contact Close support and follow up Kandi Muhammad MPH, RN, IBCLC [facility] [place] [place] Services Note - Kandi Muhammad RN - 03/15/2018 11:25 AM EDT This note was copied from a baby's chart. ASSESSMENT INPATIENT Encounter Date/Time: 03/15/2018 / 1120 Baby's name: Jeannine Lewis : 03/14/2020 Time of : 11:37 AM Mode of Delivery: Lower Segment Transverse Gestational Age: Gestational Age: 36w1d Baby age: 24 hours old Birthweight: 4 lb 9.7 oz (2090 g) Weights since : Patient Vitals for the past 168 hrs: Weight 03/14/18 1237 (!) 2.09 kg (4 lb 9.7 oz) 03/14/18 1137 (!) 2.09 kg (4 lb 9.7 oz) Overall weight loss: 0% MATERNAL INFO: Marlo Lewis [id number] 2000 Significant History: Previous experience: None--first-time mom Breast Surgery: No Breast Changes During : Yes Breast Exam : Size: Medium small Shape: round Venous Pattern: Within Normal Limits Milk Production: Colostral Phase Normal. Obtaining 1-2 mls colostrum per pumping session. Mother relays she is pumping every 2-3 hours. Nipple Exam : Normal Everted Color: [place] Compressible: Yes Trauma: None noted Nipple Care Management: -Bowman oil -Motherlove ointment OBSERVATION: Not assessed. Pumping session observed. ASSESSMENT: In the ICN on CPAP. Not assessed PATIENT EDUCATION AND RECOMMENDATIONS: Benefits of frequent maternal- Skin to Skin (STS) contact Pumping Recommendations Breast massage and manual expression techniques Written contact information for [facility] [place] [place] Services prn On-going Concerns: First-time parents Inexperienced BF mom Inadequate infant latch due to infant's gestation and supplemental oxygen requirements Delayed adequate feeding due to 's gestation and supplemental oxygen requirements Monitor infant growth and nutrition closely Plan: -Support mother with pumping and onset of Lactogenesis II Pump at least 8-10 times per 24 hours and record in pumping log provided Breast massage and hand expression before and during pumping Brief heat prior to pumping and ice packs after pumping X 48 hours Bowman oil to nipples prior to pumping Frequent and prolonged maternal- skin to skin contact Close support and follow up Kandi Muhammad MPH, RN, IBCLC [facility] [place] [place] Services Note - Jane Javed RN - 03/14/2018 4:00 PM EDT This note was copied from a baby's chart. ASSESSMENT INPATIENT Encounter Date/Time: 03/14/20181599 Baby's name: Jeannine Lewis : 03/14/2020 Time of : 11:37 AM Mode of Delivery: Lower Segment Transverse Gestational Age: Gestational Age: 36w1d Baby age: 5 hours old Birthweight: 4 lb 9.7 oz (2090 g) Weights since : Patient Vitals for the past 168 hrs: Weight 03/14/18 1237 (!) 2.09 kg (4 lb 9.7 oz) 03/14/18 1137 (!) 2.09 kg (4 lb 9.7 oz) Overall weight loss: 0% MATERNAL INFO: Marlo Lewis [id number] 2000 G 1 P 1 Significant History: Previous experience: None--first-time mom Breast Surgery: No Breast Changes During : Yes Increased size and leaking for the past several weeks Breast Exam : Size: Medium Shape: Round, slightly pendulous Venous Pattern: Within Normal Limits Milk Production: Colostral Phase Pumped 2cc Soft Nipple Exam : Normal Sized down to 21mm flanges Color: [place] Compressible: Yes Trauma: None: Nipple Care Management: Bowman Oil for Pumping INFANT ASSESSMENT: In ICN on CPAP PATIENT EDUCATION AND RECOMMENDATIONS: Pump at least 8-10 times per 24 hours and record in pumping log provided Breast massage and hand expression before and during pumping Brief heat prior to pumping and ice packs after pumping X 48 hours Bowman oil to nipples prior to pumping Frequent and prolonged maternal-infant skin to skin contact Close support and follow up 20 minutes were spent with this family, providing assessment, assistance, education, and support. Mother voices understanding of education and recommendations. Jane Javed RN, IBCLC [facility] [place] [place] Services Initial Assessments - Orin Araiza MSW - 03/14/2018 3:38 PM EDT Office of Care Management Initial Assessment HORACE Crawford reviewed record and discussed patient with Care Team. Source of Information: patient, pt's mother Yee, and RUIZ Sawyer Introduced self/reviewed role; services accepted. Assessment somewhat brief due to pt meeting with baby in ICN. Baby's name is Trinity Chapin Reason for Hospitalization: Reason for Admission as Stated by Patient: scheduled c/s Marlo Lewis is a 18 y.o. at 36w1d gestation being admitted for scheduled for IUGR and malpresentation. Past Medical History: Diagnosis Date ??? Anxiety depression ??? Asthma ??? Bacterial vaginosis ??? Chlamydia ??? Chronic pain ??? Depression ??? Hepatitis C ??? Migraine ??? 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 Substance use disorder methadone maintenance ??? UTI (urinary tract infection) Hospitalizations Within the Past 30 Days: no Anticipated Length Of Stay (If known): Expected Length of Hospitalization: 3 Current Decision-Making Capacity: full Advance Care Planning: not discussed Current Coping/Education/Information Needs: Pt reports she is feeling a lot better now that the babyis no longer on a CPAP. Current Functional Ability: post- Functional Status Prior to Admission: full, no assistance with ADLs Home Environment: Pt lives in [place], [place] with FOB Silverio. Both parents are currently on SSI. Pt receives about $813 a month and Silverio receives about $800 a month. Social & Family Supports/Community Resources: Pt reports her sisters, mother, and Silverio are all very supportive of her. She is already connected with [employer] and receives $192 in food stamps per month. She plans to apply for [employer] as well. She reports that she already has a visiting nurse through [facility] in [place] so declines VNA. She accepted EI from [facility] and a referral to [facility]. CM is ordering breast pump through [employer]. Behavioral Health History: Pt has a hx of anx/depr and is on neurontin. She reports that this is working well for her right now. Substance Use/Abuse: Pt has hx of opiate use and is currently on methadone maintenance. Both she andNick have been clean for a year and attend [facility]. They are required to go daily for their doses and they see a counselor there. Other Pertinent/Service Specific Information: none Health/Prescription Coverage: Primary Insurance: MEDICAID [place] Secondary Insurance: N/A Prescription Coverage: yes Preferred Pharmacy: [facility] Other: no Primary Care Provider: None None Patient/Caregiver Goals of Treatment: a healthy baby Potential Needs for Transition of Care: Rehab/SNF: no Home Health: has through [facility] DME: pump being ordered through [employer] Dialysis: no Community Resources: accepted referrals Transportation: has ride Other: no Anticipated Barriers to Discharge/Special Considerations: none at this time Assessment: Pt has a lot of support through family members. She is connected to [facility] in [place] for her methadone maintenance. Pump being ordered through [employer]. Plan: SW will continue to follow pt to d/c. A member of the Care Management team will continue to monitor progress, follow for continuity of care and assist with transition of care planning. HORACE Crawford Pager: [phone] Op Note - Lesli Aaron MD - 03/14/2018 3:31 PM EDT [facility] [place] [place] Operative Note Patient Name: Marlo Lewis : [id number] MR#: [id number] ?? Case Date: 03/14/2018 ?? Surgeon: Surgeon(s) and Role: * Marybel Jc MD - Primary * [facility], PROCED[facility] * Andreia Cash MD - Resident-Surgeon Desmond * Lesli Aaron MD - Resident-Surgeon Desmond ?? Preoperative diagnosis: IUP at 36w1d, IUGR, Breech presentation, Chronic Hep C, Substance Use Disorder ?? Postoperative diagnosis: IUP at 36w1d, IUGR, Breech presentation, Chronic Hep C, Substance Use Disorder ?? Procedure: Primary Low Transverse Section ?? Anesthesia: Spinal ?? Findings: Normal uterus without uterine anomalies, normal fallopian tubes, normal ovaries, single, living, , growth restricted, female, 8-8, Weight 2090 g, normal appearing placenta with 3 vc. ?? Complications: None ?? Estimated Blood Loss: 600 mL ?? Specimens removed during surgery: Placenta was sent to pathology, cord blood was sent to the lab ? Fluids: 1,700 cc LR ?? PRBCs: none (See Anesthesia Record/Report for Other Blood Products) ? Urine Output: 200 mL ?? Drains: Avilez catheter draining clear urine ?? Disposition: regional anesthesia administered without incident ?? Condition: doing well without problems HPI/ Indications for Procedure: Marlo Lewis is a 18 y.o. who was admitted with IUGR and breech presentation, planned primary section. The risks, benefits and alternatives were discussed including bleeding, infection and damage to surrounding structures (bowel, bladder, uterus, tubes, ovaries, ureters, blood vessels or nerves). The procedure was reviewed in detail with the patient, who had the opportunity to ask questions, all of which were answered. Consent was obtained. Procedure Description: The patient was taken to the Operating Room with IV fluids running where spinal anesthesia was foundto be adequate. The patient was given 2 gm of Ancef. The patient was placed in the dorsal supine position with a leftward tilt. SCD's were placed and operating. Avilez catheter was placed into the bladder. The patient was then prepped and draped in the usual sterile fashion. A surgical timeout was performed with all parties in agreement. After spinal anesthesia was confirmed adequate, a Pfannenstiel skin incision was made with a scalpeland carried through to the underlying layer of fascia with the Bovie and blunt dissection. The fascia was nicked in the midline with the Bovie and the incision was extended laterally with the curved Wiley scissors.?? The superior aspect of the fascial incision was then grasped with Annmarie clamps, elevated, and the rectus muscle was dissected off with blunt dissection and the Bovie. Attention was then turned to the inferior aspect of the fascial incision, which was grasped with Annmarie clamps, elevatedand the underlying rectus and pyramidalis muscles were dissected off in a similar fashion to the level of the pubic symphsis. The rectus muscles were then in the midline and the peritoneum identified and entered digitally. The peritoneal incision was then carefully extended to the bladder reflection with the Metzenbaum scissors. The bladder blade was then inserted and the vesicouterine peritoneum identified, grasped withpickups and entered sharply with Metzenbaum scissors. This incision was then extended laterally and the bladder flap created digitally. The bladder blade was replaced and the lower uterine segment incised in a curving transverse fashion with a scalpel.?? The hysterotomy was extended with upward and downward traction.??The bladder blade was then removed and a hand inserted into the uterus. After the breech was brought to the hysterotomy, gentle fundal pressure was applied to facilitate deliveryof infant. The lower extremities followed easily and the bilateral upper extremities were individually swept alongside the torso and delivered.There was no nuchal cord. The head and shoulders delivered easily. Liveborn female infant was delivered. The cord was doubly clamped and cut. The was handed off to the waiting pediatricians, who assigned Apgars of 8 and 8.?? Oxytocin was initiatedto facilitate uterine contractions. The placenta was then expressed. The uterus then exteriorized and cleared of all clots and debris. Moderate uterine tone and brisk bleeding at the hysterotomy were noted. The uterine incision was repaired with 0-Vicryl in a continuous locked fashion. A second layer of the same suture was used to imbricate the first layer. The tone was still boggy but continued to improve with massage. Excellent hemostasis was appreciated. The uterus was returned to the abdomen. The gutters were cleared of all clots.The hysterotomy, bladder flap and fascial surfaces were checked and all found to be hemostatic. The fascia was reapproximated with 0-Vicryl in a running fashion. The subcuticular space was well irrigated. The skin was then closed with subcuticular 4-0 Monocryl. Sterile dressings were applied over the incision.?? The uterus was expressed of clots.?? The patient and infant tolerated the procedure well and were in stable condition at its conclusion. Sponge, lap and needle counts were correct times three at case close. The patient was taken back to her room in stable condition. Dr. Jc was present for the entire delivery without conflicting obligations. Prophylactic antibiotics: 2 gm Ancef DVT Prophylaxis: SCD's Lesli Aaron MD, PGY-1 03/14/2018 Associated attestation - Marybel Jc MD - 03/15/2018 3:21 PM EDT Attestation: Case Date: 03/14/2018 I was present and I participated during the entire procedure (does not need to include opening and closing). Marybel Jc MD 03/15/2018 Brief Op Note - Marybel Jc MD - 03/14/2018 3:30 PM EDT Brief Operative Note Patient Name: Marlo Lewis : [id number] MR#: [id number] Case Date: 03/14/2018 Surgeon: Surgeon(s) and Role: * Marybel Jc MD - Primary * [facility], PROCED[facility] * Andreia Cash MD - Resident-Surgeon Desmond * Lesli Aaron MD - Resident-Surgeon Desmond Preoperative diagnosis: IUP at 36w1d, IUGR, Breech presentation, Chronic Hep C, Substance Use Disorder Postoperative diagnosis: IUP at 36w1d, IUGR, Breech presentation, Chronic Hep C, Substance Use Disorder Procedure: Primary Low Transverse Section Anesthesia: Spinal Findings: Normal uterus, normal fallopian tubes, normal ovaries, single, living, , growth restricted, female, 8-8, Weight 2090 g, normal appearing placenta with 3 vc. Complications: None Estimated Blood Loss: 600 mL Specimens removed during surgery: Placenta was sent to pathology, cord blood was sent to the lab Fluids: 1,700 cc LR PRBCs: none (See Anesthesia Record/Report for Other Blood Products) Urine Output: 200 mL Drains: Avilez catheter draining clear urine Disposition: regional anesthesia administered without incident Condition: doing well without problems (Please see the Surgical Encounter Summary for any Implant and Specimen details pertinent to this patient.) Infection Bundle used? Yes Obstetric Infection Bundle: Case Acuity: Elective case Chlorhexidine shower night before surgery?: (not recorded) Chlorhexidine shower morning of surgery on BP?: (not recorded) 2 % Chlorhexadine-alcohol skin prep: Yes Vaginal prep povidone -iodine scrub: Yes Pre op IV antibiotics: Ancef Preop antibiotics given between 15-60 minutes prior to incision? Yes Evidence of chorioamnionitis: No Intra-op antibiotic re-dose (for surgery length >3 hours or EBL >1500cc): N/A Closure of subcutaneous tissue > 2 cm: N/A Subcuticular skin closure: Yes L&D Delivery Note - Lesli Aaron MD - 03/14/2018 2:59 PM EDT Marlo Lewis is a 18 y.o. woman who presented at 36w1d gestational age for planned section for IUGR and breech. Her was complicated by FRANCHESCA (on methadone), chronic Hep C, tobacco abuse. The pt was taken to the OR and underwent primary low transverse section under spinal analgesia. This resulted in delivery of a liveborn female with Apgars of 8 and 8, weighing 2090g. EBL was 600 cc. There were no complications. For further details please see the operative report. ?? Dr. Jc was present for the entire delivery without conflicting clinical responsibilities. Lesli Aaron MD PGY1 03/14/2018 Information for the patient's : Jeannine Lewis [[id number]] DELIVERY SUMMARY FOR Baby Marcin Lewis (please note there is a separate summary for each fetus) 03/14/2018 11:37 AM by Lower Segment Transverse Sex: female Gestational Age: 36w1d Labor Events labor?: No GBS colonized: unknown Risk factors: without risk factors steroids: Full Course Cervical ripening date/time: Cervical ripening type Rupture identifier: Rupture 1 Rupture date/time: 03/14/181135 Rupture type: artificial rupture of membranes Fluid color: clear Labor onset type: section without labor Augmentation: None Labor onset date/time: Mother Delivery Episiotomy: None Vaginal laceration: No Cervical laceration: No Surgical or additional est. blood loss (mL): 600 Combined est. blood loss (mL): 600 Repair suture: None Delivery () Delivery Date: 03/14/18 Delivery Time: 1136 Sex: Female Presentation: Breech Attempted ?: No Delivery Type: Delivery Type (Specific): Lower Segment Transverse Major Indications - : malpresentation Shoulder Dystocia Shoulder dystocia present?: No Delivery Information Delivery Location: OR Delivering Clinician: LESLI AARON ICN Staff Present: Yes Other Personnel: Provider Role HÉCTOR GALVEZ Delivery Nurse MARYBEL JC Trauma Surgeon KARINE SHAFER Delivery Assist ANDREIA CASH Resident LESLI AARON Resident Anesthesia Method: Spinal Cord Vessels: 3 Vessels Complications: None Gases Sent?: No Cord Insertion: central Assessment & APGARS Living status: Living Apgars 1 Minute: 5 Minute: 10 Minute 15 Minute 20 Minute Skin Color: 0 0 Heart Rate: 2 2 Reflex Irritability: 2 2 Muscle Tone: 2 2 Respiratory Effort: 2 2 Total: 8 8 Apgars Assigned By: REY PENN Resuscitation Method: Suctioning Suctioning Method: Bulb syringe Maternal Horatio Feeding and Skin to Skin Maternal Choice for Horatio(s) Feeding on Admission: Skin to skin initiation date/time: Reason skin to skin not initiated: Horatio Acuity Medications Medications Given: vitamin K, erythromycin Measurements Weight: 2090 g Length: 0.432 m Head Circumference: 0.32 m Placenta Date and Time: 03/14/2018 1139 Removal: Manual Removal Appearance: Intact Labor Length 1st stage: 2nd stage: 3rd stage: Hrs: 0 Min: 2 Associated attestation - Marybel Jc MD - 03/14/2018 3:44 PM EDT I supervised the delivery described above. I was present and I participated during the entire delivery (does not to include opening and closing) and there were no overlapping cases. Marybel Jc MD Plan of Care - Héctor Galvez RN - 03/14/2018 2:25 PM EDT Problem: Patient Care Overview Goal: Plan of Care Review Outcome: Ongoing (Interventions Implemented as Appropriate) 03/14/18 0808 Coping/Psychosocial Plan Of Care Reviewed With patient;significant other;mother OUTCOME EVALUATION NOTE: OUTCOME SUMMARY: Pt s/p primary c/s with spinal analgesia. Pt recovering well, tolerating food and fluids. Avilez catheter patent and draining. VSS, fundus firm U/-2 and bleeding WDL. OOB to w/c to visit babe in ICN. Fiance at bedside and supportive throughout shift. Will continue to monitor. PLAN MOVING FORWARD: Pain management, visit babe in ICN, start pumping, sleep INDIVIDUALIZED FALL PREVENTION INTERVENTIONS: Patient-specific fall risk factors per assessment: [current deficits]: S/p c/s with spinal Assistance [level of assistance required for transfers and ambulation]: 2 assist post spinal Supervision [direct monitoring required during toileting and ADLs]: Hands on Surveillance [continuous indirect monitoring]: Purposeful rounding Patient-specific fall prevention interventions for sensory deficits provided, if applicable: [X] N/A CPG GOAL OUTCOME EVALUATION: Goal: Individualization & Mutuality Outcome: Ongoing (Interventions Implemented as Appropriate) 03/14/18 0700 Mutuality/Individual Preferences What Anxieties, Fears or Concerns Do You Have About Your Health or Care? no What Questions Do You Have About Your Health or Care? no What Information Would Help Us Give You More Personalized Care? no Goal: Fall Prevention-Safe Patient Handling Outcome: Ongoing (Interventions Implemented as Appropriate) 03/14/18 0700 03/14/18 0800 Bernal Fall Risk History of Falling -- 0 Secondary Diagnosis -- 0 Ambulatory Aids -- 0 Intravenous Therapy/Heparin/Saline Lock -- 0 Gait/Transferring -- 0 Mental Status -- 0 Score -- 0 OTHER Bernal Fall Risk -- Low Restraint Interventions Safety Promotion/Fall Prevention nonskid shoes/slippers when out of bed;safety round/check completed-- Positioning Body Position independent -- Activity Activity Assistance Provided independent -- documented in this encounter Plan of Treatment Upcoming Encounters Date Type Specialty Care Team Description 10/19/2022 Office Visit Ophthalmology documented as of this encounter Procedures Procedure Name Priority Date/Time Associated Diagnosis Comme nts SCAN, PERIPHERAL Routine 03/15/2018 4:15 Results for this BLOOD AM EDT procedure are i n the results section. HEMOGRAM Routine 03/15/2018 4:15 Results for this AM EDT procedure are i n the results section. DIFFERENTIAL, Routine 03/15/2018 4:15 Results for this AUTOMATED AM EDT procedure are i n the results section. CBC (WITH DIFF) Routine 03/15/2018 4:15 AM EDT SURGICAL PATHOLOGY Routine 03/14/2018 12:53 Resul ts for this REPORT PM EDT procedure are i n the results section. SPECIMEN TO PATHOLOGY Routine 03/14/2018 12:53 Re sults for this PM EDT procedure are i n the results section. @ DELIVERY 03/14/2018 10:30 malpresentation (WRVU 16.13) AM EDT GROUP B STREPTOCOCCUS Routine 03/14/2018 10:07 Re sults for this SCREEN AM EDT procedure are i n the results section. GROUP B STREP CULTURE Routine 03/14/2018 10:07 Re sults for this SCREEN AM EDT procedure are i n the results section. ABORH RECHECK STATUS Routine 03/14/2018 9:50 Resu lts for this AM EDT procedure are i n the results section. HEMOGRAM Routine 03/14/2018 9:50 Results for this AM EDT procedure are i n the results section. DIFFERENTIAL, Routine 03/14/2018 9:50 Results for this AUTOMATED AM EDT procedure are i n the results section. ABO/RH TYPING Routine 03/14/2018 9:50 Results for this AM EDT procedure are i n the results section. HIV SCREEN, 4TH Routine 03/14/2018 9:50 Results f or this GENERATION AM EDT procedure are i n ([facility] [place] [place]/CGP/APD/NLH) the resul ts section. CBC (WITH DIFF) Routine 03/14/2018 9:50 AM EDT ANTIBODY SCREEN Routine 03/14/2018 9:50 Results f or this AM EDT procedure are i n the results section. TYPE AND SCREEN Routine 03/14/2018 9:50 ([facility] [place] [place]/CGP/WILD) AM EDT HEPATIC FUNCTION Routine 03/14/2018 9:50 Results for this PANEL AM EDT procedure are i n the results section. RAPID DRUG SCREEN, Routine 03/14/2018 9:38 Result s for this URINE ([facility] REQUEST) AM EDT procedur e are in the results section. RAPID DRUG SCREEN W/O Routine 03/14/2018 9:38 Res ults for this CONFIRMATION, URINE AM EDT procedur e are in the results section. documented in this encounter Results Scan, Peripheral Blood (03/15/2018 4:15 AM EDT) P athologist Signature Plat Estimate Normal [facility] RBC Morphology Normal [facility] Specimen Anatomical Collection Method Collection Time Receive d Time (Source) Location / / Volume Laterality Blood specimen 03/15/2018 4:15 AM 018 4:32 (specimen) EDT AM EDT Resulting Agency Comment Spec In Lab Laurie Montano DO HEMATOLOGY ORDERABLES Performing Organization Address City/State/[place] [address] (ABNORMAL) Differential, Automated (03/15/2018 4:15 AM EDT) Patholo gist Method Time Signature Neutrophils % 66.0 % [facility] Neutr Abs (ANC) 10.42 (H) 1.70 - [facility] 6.10 [facility] x10(3)/[facility] L LABORATORY Lymphocytes % 21.8 % [facility] Lymphocytes Abs 3.4 (H) 0.9 - 3.2 [facility] x10(3)/[facility] LABORATORY Monocytes % 10.2 % [facility] Monocyte Abs 1.6 (H) 0.3 - 0.9 [facility] x10(3)/[facility] LABORATORY Eosinophils % 1.1 % [facility] Eosinophils Abs 0.2 0.0 - 0.4 [facility] x10(3)/[facility] LABORATORY Basophils % 0.4 % [facility] Basophils Abs 0.1 0.0 - 0.1 [facility] x10(3)/[facility] LABORATORY Immature Gran % 0.50 % [facility] Comment: Immature granulocytes(IG's)percentage an d absolute count will include metamyelocytes, myelocytes, and promyelo cytes. Blood smears from CBCs yielding IG's will be scanned manually for concor dance. If this scan disagrees with the automated IG or if promyelocytes are not ed, a manual differential will be performed. Jaymie Gran Abs 0.08 (H) 0.00 - 0.04 x10(3)/[facility] LABORATORY Specimen Anatomical Collection Method Collection Time Receive d Time (Source) Location / / Volume Laterality Blood specimen 03/15/2018 4:15 AM 018 4:32 (specimen) EDT AM EDT Resulting Agency Comment Spec In Lab Laurie Montano DO HEMATOLOGY ORDERABLES Performing Organization Address City/State/ZIP [place] [address] (ABNORMAL) Hemogram (03/15/2018 4:15 AM EDT) Analysis Performed At Patho logist Time Signature WBC 15.8 (H) 4.0 - 9.5 [facility] x10(3)/[facility] LABORATORY RBC 3.70 (L) 4.00 - [facility] 5.21 [facility] x10(6)/[facility] LABORATORY Hemoglobin 11.9 11.7 - [facility] 15.5 gm/dL [facility] Hematocrit 34.8 (L) 35.7 - [facility] 45.8 % [facility] MCV 94.1 82.6 - JANE PUTNAMCOCK 94.4 [facility] LABORATORY MCH 32.2 (H) 27.1 - JANE PUTNA[place]OCK 32.0 pg [facility] MCHC 34.2 31.7 - JANE DIGGSCK 35.0 gm/dL [facility] Platelets 268 145 - 357 [facility] x10(3)/[facility] LABORATORY RDWSD 44.1 37.0 - JANE DURÁN 46.0 [facility] LABORATORY RDWCV 12.7 11.5 - JANE LEEANNA 14.1 % [facility] MPV 10.6 7.6 - 12.9 [facility] LABORATORY nRBC % Auto 0.0 % [facility] nRBC Abs Auto 0.000 0.000 - JANE LEEANNA 0.000 [facility] x10(3)/[facility] LABORATORY Specimen Anatomical Collection Method Collection Time Receive d Time (Source) Location / / Volume Laterality Blood specimen 03/15/2018 4:15 AM 018 4:32 (specimen) EDT AM EDT Resulting Agency Comment Spec In Lab Laurie Montano DO HEMATOLOGY ORDERABLES Performing Organization Address City/State/ZIP [place] [address] Surgical Pathology Report (03/14/2018 12:53 PM EDT) Component Value Ref Test Analysis Performed At [facility] gist Range Method Time Signature Surgical [id number] ? Location: BP; BP12; A [facility] Report The signing pathologist has (i) examined the relevant preparation(s) for the [facility] specimen(s) and (ii) rendered or confirmed the diagnosis(es) . HOSPITAL LABORATORY . ?Surgic al Pathology DIAGNOSIS A - Pre-term placenta, 419 grams. ?No chorioamnionitis. ?Three vessel umbilical cord with eccentric inser tion and no funisitis. Electronically signed by: ??Alessandra WATTERS, Armani Burroughs Verified: ??03/16/2018 ?Pathologist Performed at: ??-[facility] [place], [place] Dept. of Pathology, [place], [place] CLINICAL INFORMATION Specimen Submitted: A - Placenta Clinical history/diagnosis: ?? 18 year old; Caesarian section at 36 weeks for IUGR and breech presentation. SPECIMEN PROCESSING A - Labeled/Fixative: Placenta, fresh. Qty/Size/Weight: Multiple, 22 x 18 x 2.0 cm, 419 grams. Tissue Description: Intact o f a rockwell placenta with additional detached portion of umbilical cord. Membranes: Glistening, translucent, pink-avlia, marginal inser tion. Cord: 13 x 1.3 cm; three vessels; eccentric insertion. Surface: Glistening, g ray-avila, multiple intact large branching blood vessels, no lesions. Maternal Surface: Intact and complete with scant, scattered calcium deposition. Parenchyma: Soft, red-brown, no lesions. Sections/Processing: (1) mem brane roll; (2) proximal and distal cord; (3-5) full thickness parenchyma. (R5) ??agueda Specimen (Source) Anatomical Collection Method Collection Time Re ceived Time Location / / Volume Laterality 03/14/2018 12:53 PM EDT Lesli Aaron MD PATHOLOGY/CYTOLOGY ORDERABLE S Performing Organization Address City/[facility]/ZIP [place] [address] Specimen to Pathology (03/14/2018 12:53 PM EDT) Specimen Anatomical Collection Method Collection Time Receive d Time (Source) Location / / Volume Laterality AP Specimen 03/14/2018 12:53 03/14/2018 2:53 PM EDT PM EDT Narrative [facility] LABOR[facility] ORY - 03/14/2018 2:53 PM EDT Specimen requisition ordered. ??Separate Pathology report to follow Resulting Agency Comment Spec In Lab Marybel Jc MD PATHOLOGY/CYTOLOGY ORDERABLE S Performing Organization Address City/[facility]/ZIP [place] [address] Group B Streptococcus Screen (03/14/2018 10:07 AM EDT) athologist Signature Group B Strep Neg [facility] LABORATORY Specimen (Source) Anatomical Collection Method Collection Time Re ceived Time Location / / Volume Laterality Pooled specimen 03/14/2018 10:07 03/14/20 18 from vaginal AM EDT 10:32 AM EDT introitus and rectal swab (specimen) Comment: Penicillin Allergy?->No Resulting Agency Comment Spec In Lab Lesli Aaron MD MICROBIOLOGY - GENERAL ORDER MARQUITA Performing Organization Address City/State/ZIP [place] [address] Group B Strep Culture Screen (03/14/2018 10:07 AM EDT) Component Value Ref Test Analysis Performed At [facility] [employer] Range Method Time Signature Group B No Group B [facility] Streptococcus Streptococci [place] Culture isolated [facility] LABORATORY Specimen (Source) Anatomical Collection Method Collection Time Re ceived Time Location / / Volume Laterality Pooled specimen 03/14/2018 10:07 03/14/20 18 from vaginal AM EDT 10:32 AM EDT introitus and rectal swab (specimen) Comment: PENICILLIN ALLERGY?->NO Resulting Agency Comment Spec In Lab Marybel Jc MD MICROBIOLOGY - GENERAL ORDER MARQUITA Performing Organization Address City/State/ZIP Code Phon e Number [address] ABORH Recheck Status (03/14/2018 9:50 AM EDT) [facility] [employer] Method [place] Signature ABORH Recheck Order Placed [facility] K [facility] LABORATORY ABORH Type Complete [facility] LABORATORY Specimen Anatomical Collection Method Collection Time Receive d Time (Source) Location / / Volume Laterality Blood specimen 03/14/2018 9:50 AM 018 (specimen) EDT 10:44 AM EDT Resulting Agency Comment Spec In Lab Lesli Aaron MD BLOOD BANK ORDERABLES Performing Organization Address City/[facility]/ZIP Code Phon e Number [address] Antibody screen (03/14/2018 9:50 AM EDT) [facility] [employer] Method Time Signature Ab Screen Negative [facility] LABORATORY Expires at 03/17/2018 JANE LEEANNA [id number] on: [facility] LABORATORY Specimen Anatomical Collection Method Collection Time Receive d Time (Source) Location / / Volume Laterality Blood specimen 03/14/2018 9:50 AM 018 (specimen) EDT 10:44 AM EDT Resulting Agency Comment Spec In Lab Lesli Aaron MD BLOOD BANK ORDERABLES Performing Organization Address City/[facility]/ZIP Code Phon e Number [address] ABO/Rh Typing (03/14/2018 9:50 AM EDT) P athologist Signature ABORh Type A Pos [facility] LABORATORY Specimen Anatomical Collection Method Collection Time Receive d Time (Source) Location / / Volume Laterality Blood specimen 03/14/2018 9:50 AM 018 (specimen) EDT 10:44 AM EDT Resulting Agency Comment Spec In Lab Lesli Aaron MD BLOOD BANK ORDERABLES Performing Organization Address City/[facility]/ZIP Code Phon e Number [address] (ABNORMAL) Differential, Automated (03/14/2018 9:50 AM EDT) Patholo gist Method Time Signature Neutrophils % 72.3 % [facility] LABORATORY Neutr Abs (ANC) 11.60 (H) 1.70 - [facility] 6.10 [facility] x10(3)/[facility] LABORATORY Lymphocytes % 20.0 % [facility] LABORATORY Lymphocytes Abs 3.2 0.9 - 3.2 [facility] x10(3)/[facility] LABORATORY Monocytes % 5.9 % [facility] LABORATORY Monocyte Abs 0.9 0.3 - 0.9 [facility] x10(3)/[facility] LABORATORY Eosinophils % 0.7 % [facility] LABORATORY Eosinophils Abs 0.1 0.0 - 0.4 [facility] x10(3)/[facility] LABORATORY Basophils % 0.6 % [facility] LABORATORY Basophils Abs 0.1 0.0 - 0.1 [facility] x10(3)/[facility] LABORATORY Immature Gran % 0.50 % [facility] LABORATORY Comment: Immature granulocytes(IG's)percentage an d absolute count will include metamyelocytes, myelocytes, and promyelo cytes. Blood smears from CBCs yielding IG's will be scanned manually for concor dance. If this scan disagrees with the automated IG or if promyelocytes are not ed, a manual differential will be performed. Jaymie Gran Abs 0.08 (H) 0.00 - 0.04 x10(3)/[facility] LABORATORY Specimen Anatomical Collection Method Collection Time Receive d Time (Source) Location / / Volume Laterality Blood specimen 03/14/2018 9:50 AM 018 (specimen) EDT 10:15 AM EDT Resulting Agency Comment Spec In Lab Lesli Aaron MD HEMATOLOGY ORDERABLES Performing Organization Address City/State/ZIP Code Phon e Number [place] [id number] (ABNORMAL) Hemogram (03/14/2018 9:50 AM EDT) Analysis Performed At Patho logist Time Signature WBC 16.0 (H) 4.0 - 9.5 [facility] x10(3)/[facility] LABORATORY RBC 4.02 4.00 - [facility] LEEANNA 5.21 [facility] x10(6)/[facility] LABORATORY Hemoglobin 12.8 11.7 - [facility] 15.5 gm/dL [facility] LABORATORY Hematocrit 37.7 35.7 - [facility] 45.8 % [facility] MCV 93.8 82.6 - [facility] 94.4 [facility] MCH 31.8 27.1 - JANE LEEANNA 32.0 pg [facility] MCHC 34.0 31.7 - [facility] 35.0 gm/dL [facility] Platelets 289 145 - 357 [facility] x10(3)/[facility] LABORATORY RDWSD 44.0 37.0 - [facility] LEEANNA 46.0 [facility] RDWCV 12.8 11.5 - [facility] LEEANNA 14.1 % [facility] LABORATORY MPV 10.7 7.6 - 12.9 [facility] LABORATORY nRBC % Auto 0.0 % [facility] LABORATORY nRBC Abs Auto 0.000 0.000 - [facility] 0.000 [facility] x10(3)/[facility] LABORATORY Specimen Anatomical Collection Method Collection Time Receive d Time (Source) Location / / Volume Laterality Blood specimen 03/14/2018 9:50 AM 018 (specimen) EDT 10:15 AM EDT Resulting Agency Comment Spec In Lab Lesli Aaron MD HEMATOLOGY ORDERABLES Performing Organization Address City/[facility]/ZIP Code Phon e Number [address] Hepatic Function Panel (03/14/2018 9:50 AM EDT) P athologist Signature Total Protein 6.2 6.1 - 8.0 [facility] g[facility]/dL [facility] Albumin 3.3 3.2 - 5.2 [facility] gm/dL [facility] AST 13 0 - 30 [facility] unit/L [facility] ALT 5 0 - 30 [facility]/L [facility] Alk Phos 68 40 - 104 [facility] unit/L [facility] LAB[facility] Total 0.3 0.2 - 1.3 [facility] Bilirubin mg/dL [facility] LABORATORY Bili, Direct 0.1 0.0 - 0.3 [facility] mg/dL [facility] LABOR[facility]ORY Specimen Anatomical Collection Method Collection Time Receive d Time (Source) Location / / Volume Laterality Blood specimen 03/14/2018 9:50 AM 018 (specimen) EDT 10:15 AM EDT Resulting Agency Comment Spec In Lab Marybel Jc MD CHEMISTRY ORDERABLES Performing Organization Address City/[facility] Phon e Number [address] HIV Screen, 4th Generation (03/14/2018 9:50 AM EDT) Analysis Performed At Patho logist Time Signature HIV-1/2 Ab and Negative Negative [facility] LABORATORY Comment: This 4th Generation HIV test screens for the presence of the HIV-1 p24 antigen as well as antibodies reactive against H IV-1 and HIV-2. A negative screen does not rule out an acute HIV infection. If acute HIV infection is suspected, testing should be repeated in 2 - 3 week s or HIV nucleic acid testing performed. Specimen Anatomical Collection Method Collection Time Receive d Time (Source) Location / / Volume Laterality Blood specimen 03/14/2018 9:50 AM 018 (specimen) EDT 10:15 AM EDT Resulting Agency Comment Spec In Lab Marybel Jc MD IMMUNOLOGY ORDERABLES Performing Organization Address City/State/Z[place] [address] (ABNORMAL) Rapid Drug Screen w/o Confirmation, Urine (03/14/2018 9:38 AM EDT) [facility] Method Time Signature U Barbiturates None None [facility] Screen Detected Detected [facility] LABORATORY Comment: The barbiturate screen detects barbitura la at concentrations >200 ng/mL. Note: Not all barbiturates cross-react equally with antibody used in this screen. A ? Presumptive Positive? result indicates that the screening result was positive but has not yet been confirmed by a highly-specific method. As with any screen, occasional false positive re sults from cross-reacting substances may occur. Not for Medico-Legal Purposes. U Benzodiazepines Screen None Detected None Detected [facility] LABORATORY Comment: The benzodiazepines screen detects benzo diazepines at concentrations >100 ng/mL. Not all benzodiazepines cross-ravi ct equally with antibody used in this screen. Due to the low dosage of clonaze cheryle, false negatives may be obtained due to low concentration of clonazepam m etabolites. A ? Presumptive Positive? result indicates that the screening result was positive but has not yet been confirmed by a highly-specific method. As with any screen, occasional false positive re sults from cross-reacting substances may occur. Not for Medico-Legal Purposes. U Cocaine Screen None Detected None Detected [facility] LABORATORY Comment: The cocaine metabolites screen detects b enzoylecgonine (Cocaine Metabolite) at concentrations >150 ng/mL. A ? Presumptive Positive? result indicates that the screening result was positive but has not yet been confirmed by a highly-specific method. As with any screen, occasional false positive re sults from cross-reacting substances may occur. Not for Medico-Legal Purposes. U Methadone Metabolites Presumptive Pos (A) None Detected [facility] LABORATORY Comment: The methadone metabolite screen detects EDDP (major methadone metabolite) at concentrations >100 ng/mL. A ? Presumptive Positive? result indicates that the screening result was positive but has not yet been confirmed by a highly-specific method. As with any screen, occasional false positive re sults from cross-reacting substances may occur. Not for Medico-Legal Purposes. U Opiate Screen None Detected None Detected [facility] LABORATORY Comment: The opiates screen detects opiates at co ncentrations >300 ng/mL. Please note that oxycodone, oxymorphone, fentanyl, tramadol, and other synthetic opioids are not detected by [facility] opiate screen. A ? Presumptive Positive? result indicates that the screening result was positive but has not yet been confirmed by a highly-specific method. As with any screen, occasional false positive re sults from cross-reacting substances may occur. Not for Medico-Legal Purposes. U Cannabinoid Screen Presumptive Pos (A) None Detected [facility] LABORATORY Comment: The marijuana metabolites screen detects the THC metabolite (64-oya-6-carboxy-delta 9-THC) at concen trations >20 ng/mL. A ? Presumptive Positive? result indicates that the screening result was positive but has not yet been confirmed by a highly-specific method. As with any screen, occasional false positive re sults from cross-reacting substances may occur. Not for Medico-Legal Purposes. U Oxycodone Screen None Detected None Detected [facility] LABORATORY Comment: The oxycodone screen detects oxycodone a nd oxymorphone at concentrations >100 ng/mL. A ? Presumptive Positive? result indicates that the screening result was positive but has not yet been confirmed by a highly-specific method. As with any screen, occasional false positive re sults from cross-reacting substances may occur. Not for Medico-Legal Purposes. U Buprenorphine Screen None Detected None Detected [facility] LABORATORY Comment: The buprenorphine screen detects bupreno rphine at concentrations >5 ng/mL. A ? Presumptive Positive? result indicates that the screening result was positive but has not yet been confirmed by a highly-specific method. As with any screen, occasional false positive re sults from cross-reacting substances may occur. Not for Medico-Legal Purposes. U Fentanyl Screen None Detected None Detected Robert PATE [facility] LABORATORY Comment: The fentanyl screen detects fentanyl at concentrations >2 ng/mL. A ? Presumptive Positive? result indicates that the screening result was positive but has not yet been confirmed by a highly-specific method. As with any screen, occasional false positive re sults from cross-reacting substances may occur. Not for Medico-Legal Purposes. U Tricyclics Screen None Detected None Detected DEBRA PEPPER [facility] LABORATORY Comment: The tricyclics screen detects tricyclic antidepressants at concentrations >150 ng/mL. Not all tricyclics cross-react eq ually with the antibody used in this screen. A ? Presumptive Positive? result indicates that the screening result was positive but has not yet been confirmed by a highly-specific method. As with any screen, occasional false positive re sults from cross-reacting substances may occur. Not for Medico-Legal Purposes. U Ethanol Screen None Detected None Detected [facility] LABOR[facility] Comment: This urine ethanol assay detect s ethanol at concentrations >/= 100 mg/L. U Amphetamines Screen None Detected None Detected [facility] LABOR[facility]ORY Comment: The amphetamine screen detects d-ampheta mine and d-methamphetamine at concentrations >300 ng/mL. A ? Presumptive Positive? result indicates that the screening result was positive but has not yet been confirmed by a highly-specific method. As with any screen, occasional false positive re sults from cross-reacting substances may occur. Not for Medico-Legal Purposes. U Adulterants Screen None Detected None Detected Robert HERLINDA [facility] LABORATORY Comment: No adulteration or dilution of this urin e sample was detected. All urine samples submitted for urine drugs of abu se analysis are tested for creatinine concentration, pH, and for the presence of oxidants, nitrites, and chromate. Specimen Anatomical Collection Method Collection Time Receive d Time (Source) Location / / Volume Laterality Urine specimen 03/14/2018 9:38 AM 018 9:49 (specimen) EDT AM EDT Resulting Agency Comment Spec In Lab Lesli Aaron MD CHEMISTRY ORDERABLES Performing Organization Address City/State/ZIP Code Phon e Number [place] [id number]OS[address] LAB[address]ORY Drive Rapid Drug Screen, Urine (VERNELL Request) (03/14/2018 9:38 AM EDT) Patholo gist Method Time Signature VERNELL Conf No [facility] Requested [facility] LABORATORY VERNELL Requested See Comment [facility] LABORATORY Comment: Refer to Rapid Drug Screen w/o Confirmation, Urine for results. Specimen Anatomical Collection Method Collection Time Receive d Time (Source) Location / / Volume Laterality Urine specimen 03/14/2018 9:38 AM 018 9:49 (specimen) EDT AM EDT Resulting Agency Comment Spec In Lab Marybel Jc MD URINE ORDERABLES Performing Organization Address City/State/Z[place] [address] documented in this encounter Visit Diagnoses Diagnosis , unspecified gestational age documented in this encounter Admitting Diagnoses Diagnosis state, incidental documented in this encounter Administered Medications Inactive Administered Medications - up to 3 most recent administrations Medication Order MAR Action Action Date Dose Rate Site acetaminophen (TYLENOL) tablet 975 Given 03/17/2018 1:49 PM EDT 975 mg mg 975 mg, Oral, EVERY 6 HOURS PRN, Starting on Tue03/14/18 at 1253, Until Tue03/17/18 at 1815, Pain, - If ordered with other PRN pain medications give Ibuprofen first, then acetaminophen, then additional agents according to the pain scale. 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 - If pain control not adequate in 60 minutes, give additional 2 mg., Routine Given 03/17/2018 3:23 AM EDT 2 mg Given 03/16/2018 10:27 PM EDT 2 mg ibuprofen (ADVIL;MOTRIN) tablet 600 mg Given 03/17/2018 1:49 PM EDT 600 mg 600 mg, Oral, EVERY 6 HOURS, First dose on Tue03/16/18 at 0000, Until Discontinued, - Begin after ketorolac discontinued. , Routine Given 03/17/2018 6:47 AM EDT 600 mg Given 03/16/2018 10:29 PM EDT 600 mg ketorolac (TORADOL) injection 15 mg Given 03/15/2018 5:13 PM EDT 15 mg 15 mg, Intravenous, EVERY 6 HOURS, 5 doses, First dose on Tue03/14/18 at 1315, Last dose on Tue03/15/18 at 1800, Routine Given 03/15/2018 10:31 AM EDT 15 mg Given 03/15/2018 3:00 AM EDT 15 mg lactated Ringers 500 mL IV bolus New Bag 03/14/2018 9:58 AM EDT 500 mL/hr at 500 mL/hr, Intravenous, ONCE PRN, 1 dose, Starting on Tue03/14/18 at 0809, Until Tue03/14/18 at 1058, Prior to epidural placement or concerning heart rate pattern or maternal condition. lidocaine (LIDODERM) 5 % patch 1 patch 1 patch, Transdermal, EVERY 24 HOURS, First dose on 03/16/18 at 1100, Until Discontinued, Apply patch(es) for 12 michael rs, and then remove for 12 hours, Routine lidocaine (LIDODERM) 5 %(700 mg/patch) P atch Removal Transdermal, EVERY 24 HOURS, First dose on Tue03/16/18 at 2245, Until Discontinued, Remove lidocaine 5 %(700 mg/patch) patch methadone (DOLOPHINE) 10 mg/mL concentrated Given 03/17/2018 6:4 8 AM EDT 95 mg oral solution 95 mg 95 mg, Oral, EVERY MORNING, First dose on Tue03/15/18 at 0800, Until Discontinued, Liquid methadone should be used to avoid diversion, and a mouth check should be performed after each dose., STAT Given 03/16/2018 6:47 AM EDT 95 mg Given 03/15/2018 7:54 AM EDT 95 mg ondansetron (ZOFRAN) injection 4-8 mg 4-8 mg, Intravenous, EVERY 8 HOURS PRN, Starting on Tue03/14/18 at 1111, Until Tue03/17/18 at 1815, Nausea, Vomiting, PO Preferred. If patient unable to take PO, may give IV if ordered Start with 4mg and if ineffecti ve in 30 minutes, give an additional 4mg ondansetron (ZOFRAN) tablet 4-8 mg 4-8 mg, Oral, EVERY 8 HOURS PRN, Startin g on Tue03/14/18 at 1111, Until Tue03/17/18 at 1815, Nausea, Vomiting, PO Preferr ed. If patient unable to take PO, may give IV if ordered. Start with 4mg and if ine ffective in 45 minutes, give an additional 4mg, Routine polyethylene glycol (MIRALAX) packet 17 g Given 03/14/2018 4:37 PM EDT 17 g 17 g, Oral, DAILY, First dose on Tue03/14/18 at 1315, Until Discontinued, Routine documented in this encounter Active and Recently Administered Medications Times are shown in EDT. Scheduled Medication Order 03/15/2018 03/16/2018 03/17/2018 docusate sodium (COLACE) capsule 100 mg 1030 (Given - Provider: Juany Grullon RN)2330 (Given - Provider: Marissa Conner RN) 1053 (Given - Provider: Jessie Roldan RN)8680 (Given - Provider: Evelyne Park RN) 0922 (Given - Provider: Christy Leblanc, XENA) 100 mg, Oral, 2 TIMES DAILY, First dose on Tue03/14/18 at 1315, Until Discontinued, Routine ibuprofen (ADVIL;MOTRIN) tablet 600 mg 2330 (Given - P rovider: Marissa Conner RN) 0647 (Given - Provider: Marissa Hartley ph, RN)1600 (Given - Provider: Jessie Roldan RN)2229 (Given - Provider: Evelyne Park RN) 0000 (Not Given - Provider: Evelyne Park RN - Reason: Contraindicated)0647 (Given - Provider: Evelyne Park RN)1349 (Given - Provider: Christy Leblanc RN) 600 mg, Oral, EVERY 6 HOURS, First dose on Tue03/16/18 at 0000, Until Discontinued, - Begin after ketorolac discontinued. , Routine ketorolac (TORADOL) injection 15 mg () 0300 (Gi rosalva - Provider: Cassie Browne RN)1031 (Given - Provider: Juany Grullon RN)1713 (Given - Provider: Juany Grullon RN)1800 (Due - Provider: Rey Sidhu [facility]) 15 mg, Intravenous, EVERY 6 HOURS, 5 dos es, First dose on Tue03/14/18 at 1315, Last dose on Tue03/15/18 at 1800, Routine lidocaine (LIDODERM) 5 % patch 1 patch(Linked Group 1) 1100 (Due) 1100 (Hold - Provider: Christy Leblanc RN - Reason: Patient not available - Comment: In ICN visiting ) 1 patch, Transdermal, EVERY 24 HOURS, Fi rst dose on Joan 03/16/18 at 1100, Until Discontinued, Apply patch(es) for 12 hours, and then remove for 12 hours, Routine lidocaine (LIDODERM) 5 %(700 mg/patch) Patch Removal(Linked Group 1) 2245 (Hold - Provider: Evelyne Park RN - Reason: See comment - Comment: placed at pm. pt declines removing it until morning) 0820 (Patch Removed - Provider: Christy Leblanc RN - Comment: Removed by patient. Site inspected by this RN, C/D/I) Transdermal, EVERY 24 HOURS, First dose on Joan 03/16/18 at 2245, Until Discontinued, Remove lidocaine 5 %(700 mg/patch) patch methadone (DOLOPHINE) 10 mg/mL concentrated oral solut ion 95 mg 0754 (Given - Provider: Juany Grullon RN) 0647 (Given - Provider: Marissa Conner, XENA) 0648 (Given - Provider: Evelyne Park RN) 95 mg, Oral, EVERY MORNING, First dose o n 03/15/18 at 0800, Until Discontinued, Liquid methadone should be used to avoid diversion, and a mouth check should be performed after each dose., STAT polyethylene glycol (MIRALAX) packet 17 g 0900 (Not Gi rosalva - Provider: Juany Grullon RN - Reason: Patient/family refused) 0900 (Not Given - Provider: Jessie Roldan RN - Reason: Patient/family refused) 0900 (Not Given - Provider: Christy Leblanc RN - Reason: Patient/family refused) 17 g, Oral, DAILY, First dose on 02/26 at 1315, Until Discontinued, Routine PRN Medication Order 03/15/2018 03/16/2018 03/17/2018 acetaminophen (TYLENOL) tablet 975 mg 0245 (Given - Pr ovider: Cassie Browne RN)1030 (Given - Provider: Juany Grullon RN)1712 (Given - Provider: Juany Grullon RN)2330 (Given - Provider: Marissa Conner RN) 0646 (Given - Provider: Marissa Conner RN)1600 (Given - Provider: Jessie Roldan, XENA)2226 (Given - Provider: Evelyne Park, XENA) 0647 (Given - Provider: Evelyne Park, XENA)1349 (Given - Provider: Christy Leblanc RN) 975 mg, Oral, EVERY 6 HOURS PRN, Startin g e 03/14/18 at 1253, Until Tue03/17/18 at 1815, Pain, - If ordered with other PRN pain medications give Ibuprofen first, then acetaminophen, then additional age nts according to the pain scale. - Not to exceed 4g in 24 hours. , Routine glycerin-witch amish (TUCKS) 12.5-50 % pads Topical (Top), 4 TIMES DAILY PRN, Irrita tion, perineal pain, Starting Tue03/14/18 at 1253 HYDROmorphone (DILAUDID) tablet 2-4 mg 0256 (Given - P rovider: Cassie Browne, XENA)0712 (Given - Provider: Cassie Browne, XENA)1124 (Given - Provider: Juany Grullon, XENA)1608 (Given - Provider: Juany Grullon, XENA)2340 (Given - Provider: Marissa Conner, XENA) 0440 (Given - Provider: Marissa Conner RN)1053 (Given - Provider: Jessie Roldan, XENA)1608 (Given - Provider: Jessie Roldan RN)2059 (Given - Provider: Evelyne Park, XENA)2227 (Given - Provider: Evelyne Park RN) 0323 (Given - Provider: Evelyne Park RN) 0922 (Given - Provider: Christy Leblanc RN) 2-4 mg, Oral, EVERY 4 HOURS PRN, Startin g Tue03/14/18 at 1253, Until Tue03/17/18 at 1815, Pain, Severe pain (7-10), - Initial dose 2 mg. - If pain control not adequate in 60 minutes, give additional 2 mg., Routine ipratropium-albuterol (COMBIVENT RESPIMAT) inhaler 1 puff 1 puff, Inhalation, EVERY 6 HOURS PRN, S tarting Tue03/14/18 at 1253, Until Tue03/17/18 at 1815, Wheezing, Shortness of Breath, Not to exceed 6 inhalations in 24 hours. nicotine polacrilex (NICORETTE) gum 2 mg 2 mg, Buccal, EVERY 2 HOURS PRN, Startin g Tue03/14/18 at 1253, Until Tue03/17/18 at 1815, Smoking cessation, Chew gum slowly. Do not swallow. Maximum of 48 mg/day., Routine ondansetron (ZOFRAN) injection 4-8 mg(Linked Group 2) 4-8 mg, Intravenous, EVERY 8 HOURS PRN, Starting Tue03/14/18 at 1111, Until Tue03/17/18 at 1815, Nausea, Vomiting, PO Preferred. If patient unable to take PO, may give IV if ordered Start with 4mg an d if ineffective in 30 minutes, give an additional 4mg ondansetron (ZOFRAN) tablet 4-8 mg(Linked Group 2) 4-8 mg, Oral, EVERY 8 HOURS PRN, Startin g Tue03/14/18 at 1111, Until Tue03/17/18 at 1815, Nausea, Vomiting, PO Preferred. If patient unable to take PO, may give IV if ordered. Start with 4mg and if i neffective in 45 minutes, give an additional 4mg, Routine simethicone (MYLICON) chewable tablet 80 mg 80 mg, Oral, 4 TIMES DAILY PRN, Starting Tue03/14/18 at 1253, Until Tue03/17/18 at 1815, Cramping, gas pain, Routine Linked Groups Order Group 1: lidocaine (LIDODERM) 5 % patch 1 patchJump to med 1 patch, Transdermal, EVERY 24 HOURS, Fi rst dose on Tue03/16/18 at 1100, Until Discontinued
Apply patch(es) for 12 hours, and then remove for 12 hours
Routine And lidocaine (LIDODERM) 5 %(700 mg/patch) Patch RemovalJump to med Transdermal, EVERY 24 HOURS, First dose on Tue03/16/18 at 2245, Until Discontinued
Remove lidocaine 5 %(700 mg/patch) patch
Group 2: ondansetron (ZOFRAN) tablet 4-8 mgJump to med 4-8 mg, Oral, EVERY 8 HOURS PRN, Startin g Tue03/14/18 at 1111, Until Tue03/17/18 at 1815, Nausea, Vomiting
PO Preferred. If patient unable to take PO, may give IV if ordered. &n bsp;Start with 4mg and if ineffective in 45 minutes, give an additional 4mg
Routine Or ondansetron (ZOFRAN) injection 4-8 mgJump to med 4-8 mg, Intravenous, EVERY 8 HOURS PRN, Starting Tue03/14/18 at 1111, Until 03/17/18 at 1815, Nausea, Vomiting
PO Preferred. If patient unable to take PO, may give IV if ordered Start with 4mg and if ineffective in 30 minutes, give an additional 4mg
documented in this encounter Care Teams Youth Leader Relationship Specialty Start Date End Date None PCP - General 10/13/17 07/27/21 None documented as of this encounter
--- OUTSIDE RECORDS SUMMARY | 2022-06-24 11:49 | XMS_ITS | Encounter Summary ---
:2000 Author Organization [facility] Address [address] [place] [address] Care Team Providers Name Role Phone Sohan Winters MD Primary Care Provider [phone] Reason for Visit Reason Onset Date Comments Appointment Related 12/19/2014 Encounter Details Date Type Department Care Team Description 12/19/2014 Telephone [facility] Murali Burton, Sukumar ppointment Related Sports Medicine Program MD Georgiana Douglas [address] [place], [place] [phone] (Wo rk) Social History Tobacco Use Types [...] this encounter Miscellaneous Notes Telephone Encounter - Deja Colon - 12/19/2014 1337 EST Marlo has an MR arthrogram scheduled for January 09, 2015 at the [facility]. She has been instructed to check-in at 0745. Her follow-up appointment with Dr. Burton is scheduled for the same day at 1130. A STAT read was requested for this study. Deja Colon documented in this encounter Plan of Treatment Upcoming Encounters Date Type Specialty Care Team Description 06/25/2022 Telemedicine Family Medicine Chandrika Harrison MD Arrived [address] [place] [phone] (Wo rk) documented as of this encounter Visit Diagnoses Not on filedocumented in this encounter Care Teams Planer Operator Relationship Specialty Start Date End Date Sohan Winters MD PCP - General 11/13/14 04/29/21 [place] [address] documented as of this encounter
--- OUTSIDE RECORDS SUMMARY | 2022-06-24 11:49 | XMS_ITS | Encounter Summary ---
:2000 Author Organization [facility] Address [address] [place] [address] Care Team Providers Name Role Phone Cindy Guerrero MD Primary Care Provider Reason for Visit Reason Comments Labs Only LAB work up follow up. Pt sa w Dr. Montero, Recommends neuro imaging. Pt is dilated. Slight decline in d istance vision. Migraine yesterday lasted 2 days with floaters and 9/10 eyepain. No flashes. Encounter Details Date Type Department Care Team Description 09/06/2013 Office Visit [facility] Otoniel Coulter MD Ophthalmology - Main [address] [place] [address], [address] [place], [place] [address] [place] [address] [phone] (Wo rk) Social History Tobacco Use [...] - Inhaled Oxygen Concentration - - Weight 91.6 kg (202 lb) 09/06/2013 1406 EDT Height 170.2 cm (5' 7) 09/06/2013 1406 EDT Body Mass Index 31.64 09/06/2013 1406 EDT documented in this encounter Progress Notes Otoniel Coulter MD - 09/06/2013 1443 EDT This office note has been dictated. documented in this encounter Consult Notes Otoniel Coulter MD - 09/07/2013 1118 EDT DIVISION OF OPHTHALMOLOGY CONSULTATION - 09/06/2013 [facility] [address], [address] [place] [address] Merchant: Marlo Lewis was seen today by Dr Montero on my referral because of decreased vision, headache, visual field defect and abnormal macula. Dr Montero felt there was some pallor of the nerve, and because ofthat and the visual field defect we elected to carry out investigations, including laboratory studies looking for causes for optic neuropathy and an MRI of the brain and orbits with and without enhancement. Because of the decreased vision, I think it is prudent that we be more aggressive and look further. I have not recommended electrodiagnostic tests at this time. The patient's mother will be out of town until September 28 and with that in mind we will schedule the scan after that time. If the scan can be scheduled fairly early in the day, then they can have some lunch and then come back up and we can review the scan so they do not have to come back twice from [place]. We will call them with the time for the test. If that does not work, then they can change it, but let us know when it is so we can schedule an appropriate time to see the patient in followup. I will keep you posted on the results. Sincerely, P.S. Dr Montero, thank you for evaluating this patient and your recommendations. I think they are absolutely on the target. Otoniel Coulter MD 02 41 PM - Otoniel Coulter MD cn Dictation ID: [id number] cc: [facility] , [facility] [address], [address], [place] [address] Cindy Guerrero MD, [address] [phone] Ming Montero MD, [facility] - Ophthalmology [address] [place], [place] [address]lectronically signed by Otoniel Coulter MD at 10/02/2013 8:12 EST documented in this encounter Plan of Treatment Upcoming Encounters Date Type Specialty Care Team Description 06/25/2022 Telemedicine Family Medicine Chandrika Harrison MD Arrived [address] [place] [phone] (Wo rk) documented as of this encounter Procedures Procedure Name Priority Date/Time Associated Diagnosis Comme nts MR HEAD AND ORBIT 10/18/2013 8:21 EST Res ults for this W/WO CONTRAST procedure are in the results section. documented in this encounter Results MR BRAIN AND ORBIT W/WO CONTRAST (10/18/2013 8:21 EST) Anatomical Region Laterality Modality Other Specimen Narrative [facility] - 10/18/2013 12:29 EST MR BRAIN AND ORBIT W/WO CONTRAST ??10/18/2013 8:21 AM Signs and Symptoms/Comments: ??362.50-Ma cular degeneration (senile) of retina, sphuewqakwb-NVW-7-CM 377.10-Opti c atrophy, yqdrdfdeurb-KDZ-5-CM; decreased vision/ visual field defect/ all right eye/ headache Comparison: None. Axial ADC, axial T1 3-D, axial GRE SWI, axial T2 ZACHARY, sagittal 3-D FLAIR, axial T1 3-D post, DWI, and ADC s equences were obtained. 3-D reformations were then created on the 3- D imaging silhouette that they can be evaluated in 3 planes. Coron al and axial T1 pre-and postcontrast sequences were then obtaine d in thin sections through the orbits. Findings: There is no evidence of mass, mass effec t, or midline shift. The extra-axial fluid spaces are normal. The ventricles are normal in appearance and the basal cisterns are pa tent. There are no abnormally enhancing regions within the brain. There is no evidence of restricted diffu jesus to suggest stroke. There is a bilobed cystic structure in t he region of the pineal gland without evidence of enhancement. The orbits are normal in appearance with symmetric extraocular muscles. The optic nerve is normal in ap pearance and symmetric. The pituitary is unremarkable in appearance as is the optic chiasm. Scattered mildly prominent lymph nodes a re seen in the neck, not an unexpected finding in a patient of this age. Impression: 1. No significant orbital or intracrania l abnormality. 2. Small benign appearing bilobed pineal cyst. I have personally reviewed the images an d the above interpretation and agree with the findings. 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 Axial ADC, axial T1 3-D, axial GRE SWI, axial T2 ZACHARY, sagittal 3-D FLAIR, axial T1 3-D post, DWI, and ADC s equences were obtained. 3-D reformations were then created on the 3- D imaging silhouette that they can be evaluated in 3 planes. Coron al and axial T1 pre-and postcontrast sequences were then obtaine d in thin sections through the orbits. Findings: There is no evidence of mass, mass effec t, or midline shift. The extra-axial fluid spaces are normal. The ventricles are normal in appearance and the basal cisterns are pa tent. There are no abnormally enhancing regions within the brain. There is no evidence of restricted diffu jesus to suggest stroke. There is a bilobed cystic structure in t he region of the pineal gland without evidence of enhancement. The orbits are normal in appearance with symmetric extraocular muscles. The optic nerve is normal in ap pearance and symmetric. The pituitary is unremarkable in appearance as is the optic chiasm. Scattered mildly prominent lymph nodes a re seen in the neck, not an unexpected finding in a patient of this age. Impression: 1. No significant orbital or intracrania l abnormality. 2. Small benign appearing bilobed pineal cyst. I have personally reviewed the images an d the above interpretation and agree with the findings. Performing Organization Address [facility] Code Phon e Number [facility] HOMOCYSTEINE (09/06/2013 15:20 EDT) Homocysteine 4.6 umol/L [facility] Comment: Reference range may not apply to non-fasting samples. It is not recommended that EDTA and serum from the same patient be used interchangeably. Serum concentrations have been observed to be up to 10% higher than EDTA plasma. ??Reference range may not apply to serum results. Specimen Blood specimen (specimen) Performing Organization Address [facility]/ZIP Code Phon e Number [facility] [address] [place] [address] SERVICES [facility] [address] [place] [address] PROTEIN C ACTIVITY (09/06/2013 15:20 EDT) Protein [...] Specimen Blood specimen (specimen) Performing Organization Address [facility] Phon e Number [facility] [address] [place] [address] SERVICES [facility] [address] [place] [address] PROTEIN S ACTIVITY (09/06/2013 15:20 EDT) Protein S 137 64 - 147 % [facility] Comment: LAB a. ??Acquired Protein S [...] Specimen Blood specimen (specimen) Performing Organization Address [facility] Phon e Number [facility] [address] [place] [address] SERVICES [facility] [address] [place] [address] METHYLMALONIC ACID (09/06/2013 15:20 EDT) Methylmalonic Acid 0.13 <=0.40 [facility] Comment: nmol/mL LAB Performed or Referred by: [facility]: [facility], [address] [place] [address], Lab Dir: Leandro carrero III, MD Specimen Blood specimen (specimen) Performing Organization Address [facility] Phon e Number [facility] [address] [place] [address] SERVICES [facility] [address] [place] [address] SS-B/LA ANTIBODY, IGG, SERUM (09/06/2013 15:20 EDT) Pathologist [facility] SS B/La Ab, IgG, <0.2 <1.0 [facility] Comment: (Negative) U LAB Performed by: [facility] [place] and, [address], [place] [address], Analysis Internship: Lisa Boone, Ph.D. Specimen Blood specimen (specimen) Performing Organization Address [facility] Phon e Number [facility] [address] [place] [address] SERVICES [facility] [address] [place] [address] SS-A/RO ANTIBODY, IGG, SERUM (09/06/2013 15:20 EDT) Pathologist [facility] SS A/Ro Ab, IgG, <0.2 <1.0 [facility] Comment: (Negative) U LAB Performed by: [facility] and, [address], [place] [address], Analysis Internship: Lisa Boone, Ph.D. Specimen Blood specimen (specimen) Performing Organization Address [facility] Phon e Number [facility] [address] [place] [address] SERVICES [facility] [address] [place] [address] RHEUMATOID FACTOR (09/06/2013 15:20 EDT) Pathologist Sig nature Rheumatoid Factor <20 <20 IU/ml [facility] Specimen Blood specimen (specimen) Performing Organization Address City/[facility]/ZIP [facility] Phon e Number [facility] [address] [place] [address] SERVICES [facility] [address] [place] [address] SYPHILIS SEROLOGY (09/06/2013 15:20 EDT) Pathologist [facility] Syphilis Serology Interpretation: [facility] NonreactiveComment: Reference Range: Nonreactive Specimen Blood specimen (specimen) Performing Organization Address City/[facility]/ZIP [facility] Phon e Number [facility] [address] [place] [address] SERVICES [facility] [address] [place] [address] LYME AB (09/06/2013 15:20 EDT) Pathologist Sig nature Lyme AB Interpretation: [facility] NegativeComment: Reference Range: Negative Specimen Blood specimen (specimen) Performing Organization Address [facility] Phon e Number [facility] [address] [place] [address] SERVICES [facility] [address] [place] [address] ANGIOTENSIN CONVERTING ENZYME (CIERRA) (09/06/2013 15:20 EDT) Angiotensin 11 U/L [facility]zyme Comment: LAB (Note) -- REFERENCE VALUE -- The reference interval for pediatric patients may be up to 50% higher than that of adults (8-53 U/L). Performed by: [employer] [facility] [employer], [address], [place] [address], Analysis Internship: Lisa Boone, Ph.D. Specimen Blood specimen (specimen) Performing Organization Address [facility] Phon e Number [facility] [address] [place] [address] SERVICES [facility] [address] [place] [address] SED. RATE:WESTERGREN (09/06/2013 15:20 EDT) Pathologist Sig nature Sed. Rate Westergren 2 0 - 20 mm/hr [facility] Specimen Blood specimen (specimen) Performing Organization Address [facility] Phon e Number [facility] [address] [place] [address] SERVICES [facility] [address] [place] [address] VITAMIN B12 (09/06/2013 15:20 EDT) Pathologist Sig nature Vitamin B-12 461 211 - 911 pg/ml [facility] Specimen Blood specimen (specimen) Performing Organization Address [facility]/ZIP [facility] Phon e Number [facility] [address] [place] [address] SERVICES [facility] [address] [place] [address] BUN (09/06/2013 15:20 EDT) Pathologist Sig nature BUN 10 8 - 21 mg/dl [facility] Specimen Blood specimen (specimen) Performing Organization Address [facility]/ZIP Code Phon e Number [facility] [address] [place] [address] SERVICES [facility] [address] [place] [address] FOLATE (09/06/2013 15:20 EDT) Pathologist Sig nature Folate 14.7 ng/mL [facility] Comment: Deficient: ??Less than 3.4 ng/mL Indeterminate: ??3.4-5.4 ng/mL Normal: ??Greater than 5.4 ng/mL Specimen Blood specimen (specimen) Performing Organization Address [facility] Phon e Number [facility] [address] [place] [address] SERVICES [facility] [address] [place] [address] CREATININE (09/06/2013 15:20 EDT) Pathologist Sig nature Creatinine 0.60 0.50 - 1.00 mg/dl [facility] GFR, Calculated Age <18 ml/min/1.73m2 [facility] Specimen Blood specimen (specimen) Performing Organization Address [facility] Phon e Number [facility] [address] [place] [address] SERVICES [facility] [address] [place] [address] C-REACTIVE PROTEIN (09/06/2013 15:20 EDT) Pathologist Sig nature C-Reactive Protein <0.7 mg/dl [facility] Specimen Blood specimen (specimen) Performing Organization Address [facility] Phon e Number [facility] [address] [place] [address] SERVICES [facility] [address] [place] [address] ANTI NUCLEAR ANTIBODY (09/06/2013 15:20 EDT) Pathologist Sig nature Anti Nuclear Ab <40 0 - 40 Dils [facility] Specimen Blood specimen (specimen) Performing Organization Address [facility] Phon e Number [facility] [address] [place] [address] SERVICES [facility] [address] [place] [address] documented in this encounter Visit Diagnoses Diagnosis Macular degeneration (senile) of retina, unspecified - Primary Optic atrophy, unspecified Blepharitis, unspecified Headache(784.0) Headache Vision loss of right eye Unqualified visual loss, one eye 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 Medication Sig Dispensed Refills Start Date End Date ibuprofen (MOTRIN) 200 mg Take 200 mg by mouth 0 12/11/2020 tablet every 6 hours. added in this encounter Eye Exam Visual Acuity (Snellen - Linear) Right eye Left eye Dist cc 20/30 20/25 Dist ph cc NI NI Taken from Dr. Montero chart. Neuro/Psych Oriented x3: Yes Mood/Affect: Normal Care Teams Equine Dentist Relationship Specialty Start Date End Date Cindy Guerrero MD PCP - General 03/13/13 11/12/[address] [place] [phone] documented as of this encounter
--- OUTSIDE RECORDS SUMMARY | 2022-06-24 11:49 | XMS_ITS | Encounter Summary ---
:2000 Author Organization [facility] Address [address] [place] [address] Care Team Providers Name Role Phone Cindy Guerrero MD Primary Care Provider Reason for Visit Reason Comments Eye Problem Optic atrophy, vision loss r ight, drusen right, headache. No vision changes. Eye pain continues. Headaches continue but are not related to my eyes. Takes Maxalt as ne eded for headches. Encounter Details Date Type Department Care Team Description 03/14/2014 Office Visit [facility] Otoniel Coulter MD Ophthalmology - [address], [address], [address] [place], [place] [address] [place] [address] [phone] (Wo rk) Social History Tobacco Use [...] as of this encounter Discharge Diagnoses Diagnosis 784.0 HEADACHE[ICD-9-CM] 377.10 OPTIC ATROPHY NOS[ICD-9-CM] 379.91 PAIN IN OR AROUND EYE[ICD-9-CM] documented in this encounter Progress Notes Otoniel Coulter MD - 03/14/2014 1023 EDT . Base Eye Exam Visual Acuity Right Left Dist cc 20/60 -2 20/30 Dist ph cc NI 20/25 Near cc J7 J5 Method: Snellen - Linear Correction: Glasses Neuro/Psych Oriented x3: Yes Mood/Affect: angry answering questions - snapped at me and requested mother speak for her Additional Tests Color Right Left Color 07/11 04/10 Method: AOPIP Cornea examined, all 5 layers. ROS, Medications, Allergies reviewed. CVF, Pupil check and EOM's rechecked to include versions & ductions. Lids, lashes, lacrimal and orbit examined. All normal unless otherwise noted. This note has been dictated and scanned. IMP: Marlo was seen today for eye problem. Diagnoses and associated orders for this visit: Optic atrophy, unspecified Vision loss of right eye Drusen of right macula Headache Pain in or around eye I am scribing for Otoniel Coulter MD while he is personally performing the service. PAULETTE Guerrero 03/14/2014 10:25 PLAN:see in April prior to school out. Repeat studies and dilate. [place] consult if remains abnormal documented in this encounter Consult Notes Otoniel Coulter MD - 03/14/2014 1950 EDT DIVISION OF OPHTHALMOLOGY CONSULTATION - 03/14/2014 Jean-Paul Merchant OD [facility] [address], [address] [place] [address] Merchant: Our mutual patient returns today. She specifically has been seen because of decreased vision, and inparticular, in the right eye, and in addition, she has headaches as you are well aware. The patient has had multiple investigations and returns today, specifically having had an electroretinogram and a visual-evoked potential. The electroretinogram is completely normal. This is Ganzfeld or full-field electroretinogram. The visual-evoked potential has normal latencies, but there was some suggestion of a retro-chiasmatic change that may be related to unusual anatomy of the occipital lobes or left retro-chiasmatic lesion. It is important to note that the patient has had neuroimaging including an MRI of the brain and orbits with and without enhancement, and there were no enhancing lesions or masses or other suggestion of situation such as demyelinating disease. Also, a retro-chiasmatic problem would not cause the asymmetric decrease in the vision between the right eye and the left. On today's visit, we briefly examined and found that the vision in the right eye with correction was20/40 and in the left eye 20/25, but actually improved to 20/20 with both eyes. This is encouraging.The color vision continues to be 8/14 and 5/14, which actually has reversed from what we had noticedbefore where the color plates were not identified at all with the right eye, but was as good as 9.5/14 with the left eye. She has had benefit of consultation with Dr Vo who only commented on the pigment area in the right eye that you, Dr Montero, had noted. I have recommended that we reexamine her one more time. I am encouraged that she did better on the visual acuity chart than she has in the past. I am going to see her again in April right after school is out, whichever is more convenient for the family and the patient. If the abnormalities persist and/or if there is not ongoing improvement, thenI am going to recommend consultation in [place]. I would recommend either seeing the neuro-men's and boys' clothing salesperson at [facility] where they have multifocal ERG available and/or Dr Pedro Velasquez at [facility] who also has multifocal VEPs and ERGs available. I am going to leave things a bit open. I will see her again in April. I will see her at any time if there is change or concern, and we will make appropriate referral, but I think if we do refer her to [place], we should do so that she does not have to miss a couple of days of school just to have that happen. I will keep you posted on her course. Sincerely, Otoniel Coulter MD 11 02 AM - Otoniel Coulter MD cn Dictation ID: [id number] cc: Jean-Paul Merchant OD, [facility] [address], [address], [place] [address] Carlton Vo MD, [place] [address] Cindy Guerrero MD, [address] [phone] Ming Montero MD, FA - Ophthalmology [address] [place], [place] [address]lectronically signed by Otoniel Coulter MD at 03/20/2014 5:27 EDT documented in this encounter Plan of Treatment Upcoming Encounters Date Type Specialty Care Team Description 06/25/2022 Telemedicine Family Medicine Chandrika Harrison MD Arrived [address] [place] [phone] (Wo rk) documented as of this encounter Visit Diagnoses Diagnosis Optic atrophy, unspecified - Primary Vision loss of right eye Unqualified visual loss, one eye 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 Headache Pain in or around eye documented in this encounter Eye Exam Visual Acuity (Snellen - Linear) Right eye Left eye Dist cc 20/60 -2 20/30 Dist ph cc NI 20/25 Near cc J7 J5 Correction: Glasses Neuro/Psych Oriented x3: Yes Mood/Affect: angry answering questions - snapped at me and requested mother speak for her Color Right eye Left eye AOPIP 8/14 5/14 Manifest Refraction Sphere Cylinder Dist VA Right eye -1.50 sph 20/40 Left eye -1.25 sph 20/25 With both eyes with correction 20/20 slowly- Pt stopped abruptly at 20/40 right eye- could not make out any letters in next row and would not guess. Care Teams Director Financial Planning Relationship Specialty Start Date End Date Cindy Guerrero MD PCP - General 03/13/13 11/12/[address] [place] [phone] documented as of this encounter
--- OUTSIDE RECORDS SUMMARY | 2022-06-24 11:49 | XMS_ITS | Encounter Summary ---
:2000 Author Organization [facility] Address [address] [place] [address] Care Team Providers Name Role Phone Sohan Winters MD Primary Care Provider [phone] Encounter Details Date Type Department Care Team Description 12/16/2014 Orders Only [facility] Murali Burton Right hip pain Sports Medicine MD Krishna (Primary Dx) Program - [address] [facility] [address] [place], [facility] [phone] Social History Tobacco Use Types Packs/Day Years [...] Telemedicine Family Medicine Chandrika Harrison MD Arrived [address] [place] [phone] (Wo rk) documented as of this encounter Visit Diagnoses Diagnosis Right hip pain - Primary Pain in joint, pelvic region and thigh documented in this encounter Care Teams Car Body Designer Relationship Specialty Start Date End Date Sohan Winters MD PCP - General 11/13/14 04/29/21 [place] [address] documented as of this encounter
--- OUTSIDE RECORDS SUMMARY | 2022-06-24 11:49 | XMS_ITS | Encounter Summary ---
:2000 Author Organization [facility] Address [address] [place] [address] Care Team Providers Name Role Phone Cindy Guerrero MD Primary Care Provider Reason for Visit Reason Comments Follow-up F/U for mild disc pallor, ri ght, associated with visual field defect. VA about the same- pt unsure of any changes. No flashes. Same floaters. No pain. Encounter Details Date Type Department Care Team Description 11/26/2013 Office Visit [facility] Prabhakar Montero MD Ophthalmology - [address], [address], [address] [place], [place] [address] [place] [address] [phone] (Wo rk) Social History Tobacco Use [...] as of this encounter Discharge Diagnoses Diagnosis 362.50 MACULAR DEGENERATION NOS[ICD-9-CM ] 373.2 CHALAZION[ICD-9-CM] documented in this encounter Patient Instructions Patient InstructionsPaula Atkins - 11/26/2013 10:19 EST You have an appointment with Dr Vo at [facility] on 01/11/14 at 8:15am. Their phone number is [phone] signed by Paula Atkins at 11/26/2013 10:22 EST documented in this encounter Progress Notes Ming Montero MD - 11/26/2013 1105 EST [facility] DIVISION OF OPHTHALMOLOGY November 26, 2013 Otoniel Coulter MD [facility] - Ophthalmology [address] [place] [address] RE: LILA AUSTIN : [address] Coulter: Lila Lewis was seen again today for reassessment. She gives me a history of 2 years of progressive, increasing size of central scotoma relative in the right eye. She has been seen by you, Otoniel, and apparently you did not find anything that you felt was consistent with intracranial or optic nerve problems. When I saw her last, she has central macular mottling in the right eye. She forgot her glassestoday, so we are not measuring her best acuity today, either. She is not having any pain, no pain with eye movement. She does not give me a history of recurrent episodes of decreased vision. She says that she is on several medications including control medications for migraine, but her symptoms i n the right eye antedated taking any of her medications. Nothing is really making the situation better or worse except wearing glasses. She said the glasses in her left eye made the vision better initially, but her vision is waning a little bit in the left eye with her current glasses. Visual acuities today were 20/50-raiza, right; 20/40-raiza, left without correction. Intraocular pressure is 12, both. I have examined the following ophthalmic exam components for this patient, inspection of bulbar and palpebral conjunctivae, ocular adnexa, which includes the lids, lacrimal glands, lacrimal drainage, orbits and preauricular lymph nodes, examination of pupils including shape, reaction and size, morphology not done due to mydriasis, irises were examined, presence or absence of rubeosis, corneal exam including epithelium, stroma, endothelium and tear film, anterior chambers including depth, cells and flare, lens exam including clarity, anterior and posterior capsule, cortex and nucleus. The above are all normal both eyes except normal. Ophthalmoscopy reveals normal pink discs with 0.3 cups, intact rims. The patient's central fovea is quite mottled in the right eye. There is no subretinal fluid, hard exudate or hemorrhage apparent clinically. In the left eye, she has a crisp foveal reflex and a good foveal concavity. Fluorescein and photos were done today. Indications SMD, nonspecific. The findings were some subtle RPE changes in the right eye in the early phase of the study, which faded as the study proceeded. There is no leakage in either eye noted. No leakage from the optic nerve noted either. 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 I do not see any evidence of maculopathy in the lefteye. Etiology of the problem in the right eye is unclear. The patient gives me no history of recurrent issues that might suggest recurrent serous detachment, nor did she give me a history of trauma or of sun gazing or any sort of a drug exposure that I definitely think is related to this unilateral problem. The patient and her mother are very concerned and I think we have enough reasons to be concerned because the problem seems to be getting worse. Therefore, I am asking youHung to render anotheropinion on this as I do not think this is a treatable problem. Unfortunately, I do not know why she h as got this. I do not think she has a macular dystrophy because the left eye looks normal. I think the problems in her left eye are likely related to less than adequate refraction and thus I am asking her to get back to you, Jean-Paul, to see if you can tweak things a bit in both eyes to maximize her vision. I have suggested she see me again in 8 months. I am going to set up an appointment for you, Hung, in the next 3 to 4 months to render another opinion. Otoniel, given that her color vision seems to be down, out of proportion to her macular problems, I would like you to reassess. Perhaps the macular problem was related to old disc edema that has resolved.Please take this under consideration when you see her again; perhaps a VEP would be helpful here. Thanks for letting me take part in Lila's care. Sincerely, Ming Montero MD 10 11 AM - Ming Montero MD en Dictation ID: [id number] cc: Jean-Paul Merchant OD, [facility] [address], [address], [place] [address] Carlton Vo MD, [place] [address] Otoniel Coulter MD, [facility] - Ophthalmology [address] [place] [address] Ming Guerra MD - 11/26/2013 1000 EST Chief Complaint Patient presents with ??? Follow-up F/U for mild disc pallor, right, associated with visual field defect. VA about the same- pt unsure of any changes. No flashes. Same floaters. No pain. 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 Modifying factors: Same floaters. No flashes. Associated Signs & Symptoms: No association Visual Fluctuations: Floaters Attestation: Base Eye Exam Visual Acuity Right Left Dist sc 20/50 -2 20/40 Dist ph sc NI NI Method: Snellen - Linear Tonometry Right Left Pressure 12 12 Method: Applanation Time: 8:45 Pupils Pupils APD Right PERRL - Left PERRL - Neuro/Psych Oriented x3: Yes Mood/Affect: Normal Dilation Both eyes: 1.0% Mydriacyl, 2.5% Phenylephrine @ 8:45 Slit Lamp and Fundus Exam External Exam Right Left External Normal Normal Slit Lamp Exam Right Left Lids/Lashes Normal Normal Conjunctiva/Sclera White and quiet, White and quiet, Cornea Clear, Clear, Anterior Chamber Deep and quiet, Deep and quiet, Iris Round and reactive, no TI Round and reactive, no TI Lens Clear Clear Vitreous no vit cells no vit cells Fundus Exam Right Left Disc pink Normal C/D Ratio 0.3 0.3 Macula mottled centrally good foveal reflex Vessels Normal Normal Periphery Normal Normal Imaging: Photos, IVFA done today: subtle RPE changes, no leakage of nerve or macula Impression: 1. Macular degeneration (senile) of retina, unspecified EYE PHOTOGRAPHY (FUNDUS), FLUORESCEIN ANGIOGRAPHY Plan: RPE abnormality right eye, ? Etiology ? Left eye appears normal No leakage on angiogram No treatment recommended Offered 2nd opinion with Dr Vo at [facility] next 3-4 months Follow up with Dr Coulter given decreased color plates right eye Recheck here 8-10 months This office note has been dictated. I, Dr. Montero, have performed my own HPI and reviewed the tech's ROS. I have also reviewed the patient's past medical, family, social and surgical history, as well as the patient's medications, allergies, and problem list. I am scribing for, Ming Montero MD, while he is personally performing the service. DUC Giordano (Scribe) documented in this encounter Plan of Treatment Upcoming Encounters Date Type Specialty Care Team Description 06/25/2022 Telemedicine Family Medicine Chandrika Harrison MD Arrived [address] [phone] (Wo rk) Scheduled Orders Name Type Priority Associated Diagnoses Order S chedule EYE PHOTOGRAPHY Ophthalmology Routine Macular degeneration Ord ered: (FUNDUS) (senile) of retina, 11/26/20 13 unspecified FLUORESCEIN Ophthalmology Routine Macular degeneration Ordere d: ANGIOGRAPHY (senile) of retina, 11/26/20 13 unspecified documented as of this encounter Visit Diagnoses Diagnosis Macular degeneration (senile) of retina, unspecified - Primary documented in this encounter Historical Medications This list may reflect changes made after this encounter. Medication Sig Dispensed Refills Start Date End Date rizatriptan (MAXALT) 10 mg Take 10 mg by mouth 0 tablet once as needed for Migraine. May repeat in 2 hours if needed added in this encounter Eye Exam Visual Acuity (Snellen - Linear) Right eye Left eye Dist sc 20/50 -2 20/40 Dist ph sc NI NI Tonometry (Applanation, 8:45) Right eye Left eye Pressure 12 12 Pupils Pupils APD Right eye PERRL - Left eye PERRL - Neuro/Psych Oriented x3: Yes Mood/Affect: Normal Dilation Both eyes: 1.0% Mydriacyl, 2.5% Phenylep hrine @ 8:45 External Exam Right eye Left eye External Normal Normal Slit Lamp Exam Right eye Left eye Lids/Lashes Normal Normal Conjunctiva/Sclera White and quiet, White and quiet, Cornea Clear, Clear, Anterior Chamber Deep and quiet, Deep and quiet, Iris Round and reactive, no TI Round and reac tive, no TI Lens Clear Clear Vitreous no vit cells no vit cells Fundus Exam Right eye Left eye Disc pink Normal C/D Ratio 0.3 0.3 Macula mottled centrally good foveal reflex Vessels Normal Normal Periphery Normal Normal Care Teams Lace Winder Relationship Specialty Start Date End Date Cindy Guerrero MD PCP - General 03/13/13 11/12/[address] [place] [phone] documented as of this encounter
--- OUTSIDE RECORDS SUMMARY | 2022-06-24 11:49 | XMS_ITS | Encounter Summary ---
:2000 Author Organization [facility] Address [address] [place] [address] Care Team Providers Name Role Phone Sohan Winters MD Primary Care Provider [phone] Reason for Visit Reason Onset Date Comments Appointment Related 12/11/2020 Encounter Details Date Type Department Care Team Description 12/11/2020 Telephone [facility] - Jessenia Weinberg Appo intment Related [facility] JR Kramer [address] [facility] [address] [place] [address] [address] [place] [address] (Wo rk) Social History Tobacco [...] Telephone Encounter - Jessenia Weinberg CNM - 12/11/2020 1301 EST Shanon - I saw this patient for an IVAP today and she needs to get into a MAT program PAULINO as she is buying Suboxone daily on the street. Can you help facilitate this or direct me on how to do this. Thanks so much! Cori documented in this encounter Plan of Treatment Upcoming Encounters Date Type Specialty Care Team Description 06/25/2022 Telemedicine Family Medicine Chandrika Harrison MD Arrived [address] [place] [phone] (Wo rk) documented as of this encounter Visit Diagnoses Not on filedocumented in this encounter Care Teams Car Repairer Relationship Specialty Start Date End Date Sohan Winters MD PCP - General 11/13/14 04/29/[address] [place] [address] [place] [address] documented as of this encounter
--- OUTSIDE RECORDS SUMMARY | 2022-06-24 11:49 | XMS_ITS | Encounter Summary ---
:2000 [place] [address] Care Team Providers Name Role Phone None Primary Care Provider Unavailable Encounter Details Date Type Department Care Team Description 02/13/2020 Ancillary Procedure Radiology Library at [facility], Yann Dickson, [facility] [address] GENERAL SURGERY [phone] [place] [address] (Wo rk) Social History Tobacco Use Types [...] Name Priority Date/Time Associated Diagnosis Comme nts FILM LIBRARY Routine 02/13/2020 6:14 PM Results f or this STORAGE ONLY DX EDT procedure ar e in ANKLE the results section. documented in this encounter Results Film Library- Storage Only DX Ankle (02/13/2020 6:14 PM EDT) Specimen (Source) Anatomical Location Collection Method / Collectio n Time Received Time / Laterality Volume Narrative RAD - 02/13/2020 6:14 PM EDT This exam is auto-finalizing. It's purpo se is for storage only. Murali Higginbotham MD G FILM LIBRARY ORDERABLES Performing Organization Address City/State/ZIP Code Phon e Number RAD [place] documented in this encounter Visit Diagnoses Not on filedocumented in this encounter Care Teams Lock Setter Relationship Specialty Start Date End Date None PCP - General 10/13/17 07/27/21 None documented as of this encounter
--- OUTSIDE RECORDS SUMMARY | 2022-06-24 11:49 | XMS_ITS | Encounter Summary ---
:2000 Author Organization [facility] Address [address] [place] [address] Care Team Providers Name Role Phone Cindy Guerrero MD Primary Care Provider Reason for Visit Reason Comments Diagnostic Imaging Report Pt. is here for MRI follow u p visit for presumed optic neuropathy. Pt. states VA se ems stable but hard to tell. no pain, DIAZ for 2 weeks ago las kelsi 4 days was on left side of head instead of normal right side. Pt. states all other symptoms same as last visit. Encounter Details Date Type Department Care Team Description 10/18/[address] [facility] Otoniel Coulter MD Ophthalmology - [address], [address], [address] [place], [place] [id number] [place] [address] [phone] (Wo rk) Social History Tobacco Use [...] Diagnosis 784.0 HEADACHE[ICD-9-CM] 377.10 OPTIC ATROPHY NOS[ICD-9-CM] 368.40 VISUAL FIELD DEFECT NOS[ICD-9-CM] 362.50 MACULAR DEGENERATION NOS[ICD-9-CM ] 362.57 DRUSEN (DEGENERATIVE)[ICD-9-CM] 369.8 VISUAL LOSS, ONE EYE NOS[ICD-9-CM] documented in this encounter Discharge Disposition Disposition Code Departure Means Destination Auto Discharge documented in this encounter Progress Notes Otoniel Coulter MD - 10/18/2013 1444 EST [facility] October 18, 2013 Ming Montero MD FA - Ophthalmology [address] [place] [address] RE: LILA LEWIS : [address] Montero: Thank you for seeing Lila on September 06. She has decreased vision in the right eye. There was concern about pallor of the right optic nerve. Since that time, we have ordered multiple laboratory studies looking for inflammatory and infectiousmarkers that might account for visual decrease and none of these turned up. The next thing we did was an MRI of the brain and orbits with and without enhancement and that was completely normal. 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 Today, the patient's vision has decreased from what it was previously. Her vision is 20/50 and 20/30and we could not make it better than that. She could only see isolated letters at best. The pupils continue to be normal. Motility is normal. Confrontation delgado are grossly full. The Amsler grid is actually distorted in each eye now. She could not see any of the color plates in the right eye and 8/14 correct in the left eye on the [employer] pseudoisochromatic plates before she was 2.5/14 and 9.5/14. Previously she could not see the dot in the center. I did go ahead and carry out a dilated examination. The media is basically clear. The lens is clear.The optic nerves themselves continue to be pink, healthy and normal. The cup-to-disc ratio is 0.2 and 0.1. There is no hemorrhage or peripapillary atrophy. The vessels are normal. There are drusen in the right eye and there is a luteal reflex present in spite of that. I appreciated your note that you made of 09/06/2013 in your letter. The patient has had decreased vision and decreased color vision as well as abnormal Amsler grid, more so on the right than the left in spite of a normal OCT carried out 5 weeks ago. There are the drusen and mottled appearance of the macula. Dr Montero: I am going to talk to you about this patient. I think there a couple of different options. One is to do a visual evoked potential and an electroretinogram. The 2nd is for you to see her again and see if there is any change and consider fluorescein angiogram and the 3rd option is to request c onsultation with someone such as Dr Mikhail Quiroga. Dr Mikhail Quiroga could do multifocal ERG and help us better decide what is causing this visual decrease. In summary, I have not explained specifically the etiology of her visual decrease. It is hard to explain the change in just a short period of time in that her vision was 20/30 and 20/25 when you saw her 5 weeks ago. I will discuss this with you and then we will communicate with the patient's family and let them know which direction we will go. I will talk to them about the various options. Sincerely, Otoniel Coulter MD 01 40 PM - Otoniel Coulter MD ln Dictation ID: [id number] cc: Jean-Paul Merchant OD, [facility] [address], [address], [place] [address] Cindy Guerrero MD, FA [address] [place] [address] Ming Montero MD, FA - Ophthalmology [address] [place] [address] Otoniel Tapia MD - 10/18/2013 1237 EST . Base Eye Exam Visual Acuity Right Left Dist cc 20/50 -1 20/30 Dist ph cc NI NI Near cc J5 J1 Method: Snellen - Linear Correction: Glasses Tonometry Comments: Pt. Suggest Dr. Coulter is the one who performs this and states keep that blue light away from my eye. Pupils Dark Light React APD Right 6 4 Brisk None Left 6 4 Brisk None Visual Delgado Right Left Result Full Full Extraocular Movement Right Left Result Full, Ortho Full, Ortho Neuro/Psych Oriented x3: Yes Mood/Affect: Normal Additional Tests Amsler Right Left Amsler Too difficult for pt. to see chart look blurry Wavy lines Comments: Pt. States entire chart left eye wavy Color Right Left Color Pt. could not see 12 and read incorrect # for rest of test 07/11 Method: Hever Comments: Pt. Having difficulty performing test Stereo Fly: + Circles: 400 seconds Slit Lamp and Fundus Exam Slit Lamp Exam Right Left Lids/Lashes eye makup eye makeup Conjunctiva/Sclera White and quiet, no LG stain White and quiet, no LG stain Cornea Clear, no stain Clear, no stain Anterior Chamber Deep and quiet, no c/f Deep and quiet, no c/f Iris Round and reactive, no TI Round and reactive, no TI Refraction Wearing Rx Sphere Cylinder Humphrey Right -1.00 +0.50 030 Left -1.00 +0.50 079 Type: SVL ROS, Medications, Allergies reviewed. This note has been dictated and scanned. IMP: Lila was seen today for diagnostic imaging report. Diagnoses and associated orders for this visit: Optic atrophy, unspecified Macular degeneration (senile) of retina, unspecified Headache Vision loss of right eye Drusen of right macula MRI review:No significant orbital or intracranial abnormality. 2. Small benign appearing bilobed pineal cyst. I have personally reviewed the images and the above interpretation and agree with the findings. PLAN: No significant orbital or intracranial abnormality. 2. Small benign appearing bilobed pineal cyst I am scribing for Otoniel Coulter MD while he is personally performing the service. Milady ThompsonPAULETTE aadms 10/18/2013 12:56 documented in this encounter Plan of Treatment Upcoming Encounters Date Type Specialty Care Team Description 06/25/2022 Telemedicine Family Medicine Chandrika Harrison MD Arrived [address] [place], [place] [phone] (Wo rk) documented as of this encounter Visit Diagnoses Diagnosis Macular degeneration (senile) of retina, unspecified - Primary Optic atrophy, unspecified Headache(784.0) Headache Vision loss of right eye Unqualified visual loss, one eye 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 documented in this encounter Eye Exam Visual Acuity (Snellen - Linear) Right eye Left eye Dist cc 20/50 -1 20/30 Dist ph cc NI NI Near cc J5 J1 Correction: Glasses Tonometry Pt. Suggest Dr. Coulter is the one who pe rforms this and states keep that blue light away from my eye. Pupils Dark Light React APD Right eye 6 4 Brisk None Left eye 6 4 Brisk None Pupils checked by CARMEN - no RAPD Visual Delgado Right eye Left eye Full Full Extraocular Movement Right eye Left eye Full, Ortho Full, Ortho Neuro/Psych Oriented x3: Yes Mood/Affect: Normal Amsler Right eye Left eye Too difficult for pt. to see chart look blurry Wavy lines Pt. States entire chart left eye wavy Color Right eye Left eye AOPIP Pt. could not see 12 and read incorrect # for rest of test 07/11 Pt. Having difficulty performing test Stereo Fly: + Circles: 400 seconds Slit Lamp Exam Right eye Left eye Lids/Lashes eye makup eye makeup Conjunctiva/Sclera White and quiet, no LG stain White and q uiet, no LG stain Cornea Clear, no stain Clear, no stain Anterior Chamber Deep and quiet, no c/f Deep and quiet, n o c/f Iris Round and reactive, no TI Round and reac tive, no TI Wearing Rx Sphere Cylinder Humphrey Right eye -1.00 +0.50 030 Left eye -1.00 +0.50 079 Type: SVL Care Teams Aluminum Molder Relationship Specialty Start Date End Date Cindy Guerrero MD PCP - General 03/13/13 11/12/[address] [place] [phone] documented as of this encounter
--- OUTSIDE RECORDS SUMMARY | 2022-06-24 11:49 | XMS_ITS | Encounter Summary ---
:2000 Author Organization [facility] Address [address] [place] [address] Care Team Providers Name Role Phone Cindy Guerrero MD Primary Care Provider Reason for Visit Reason Comments Eye Problem Patient referred by Dr. June Montejo for decreased vison. Patient reports that for the past 11 months her vision has decreased in both eyes. She now reports that s he has new spectacles with her correction and still feels as though she is not seeing as sharp as she was 11 months ago. She has no eyepain, fla shes or floaters. She has had migraines and regular headaches since the 5th grade and has them almost every day with pain of 6/10 or more. Eye Problem Patient reports that she has a black spot in her right eye which she has been aware of for 1-2 years. Dark area is stationary and moves where ever she looks. Mom not aware of this. Encounter Details Date Type Department Care Team Description 03/22/2013 Office Visit [facility] Otoniel Coulter MD Ophthalmology - [address], [address], [address] [place] [address] [place], [place] [phone] (Wo rk) Social History Tobacco Use [...] - Inhaled Oxygen Concentration - - Weight 94.3 kg (208 lb) 03/22/2013 0826 EDT Height 172.7 cm (5' 8) 03/22/2013 0826 EDT Body Mass Index 31.63 03/22/2013 0826 EDT documented in this encounter Progress Notes Otoniel Coulter MD - 03/22/2013 1009 EDT I am scribing for Otoniel Coulter MD while he is personally performing the service. PAULETTE Conway 03/22/2013 11:15 . Base Ophthalmology Exam Visual Acuity Right Left Both Dist cc 20/30 20/20 Dist ph cc NI Near cc J2 J1+ Method: Snellen - Linear Correction: Glasses Tonometry Right Left Pressure 16 18 Method: Applanation Time: 10:02 Wearing Rx Sphere Cylinder [place] Right -1.00 +0.50 030 Left -1.00 +0.50 079 Age: one week Type: SVL Manifest Refraction Sphere Cylinder [place] Dist Near Right -1.25 +0.25 025 20/25-1 J2 Left -1.00 +0.50 080 20/20 Stereo Fly: + Circles: 400 seconds Color Right Left Color 2.5/14 9.5/14 Method: AOPIP Dilation Both eyes: 0.5% Mydriacyl, 2.5% Phenylephrine @ 10:03 Pupils Pupils Dark Light APD Right PERRL 5 4 None Left PERRL 5 4 None Visual Delgdao Right Left Result Full Full Extraocular Movement Right Left Result Full, Ortho Full, Ortho Base Ophthalmology Exam Addl. Tests Amsler Right Left Amsler chart blurry, not able to see dot in center Normal Main Ophthalmology Exam External Exam Right Left External Normal Normal Slit Lamp Exam Right Left Lids/Lashes Normal Normal Conjunctiva/Sclera White and quiet White and quiet Cornea Clear Clear Anterior Chamber Deep and quiet,vermium movement Deep and quiet,vermium movement Iris Round and reactive Round and reactive Cornea examined, all 5 layers. ROS, Medications, Allergies reviewed. CVF, Pupil check and EOM's rechecked to include versions & ductions. Lids, lashes, lacrimal and orbit examined. All normal unless otherwise noted. This note has been dictated and scanned. 78D and Direct were used for the posterior exam. IMP: Marlo was seen today for eye problem and eye problem. Diagnoses and associated orders for this visit: Headache Vision loss of right eye Drusen of right macula Other Orders - cyproheptadine (PERIACTIN) 4 mg tablet; Take 4 mg by mouth daily. - etonogestrel (IMPLANON) 68 mg subdermal implant; Insert 68 mg subdermally once. Test Performed: HVF 30-2 Indications for test: headache/ vision loss right eye Results/Findings: general depression- high false positive- right eye/ left eye central depression high false positives Plan: ? investigate Test Performed: OCT NFL and Macula test:Indications for test: Decreased vision right eye/headache Results/Findings: 96/99 signal 09/06 each eye--macula normal Plan: investigate see dictated note PLAN: This note has been dictated and scanned. documented in this encounter Consult Notes Otoniel Coulter MD - 03/27/2013 1311 EDT DIVISION [facility]AL[facility] - 03/22/2013 Jean-Paul Merchant OD [facility] [address], [address] [place] [address] Merchant: Your patient was seen in consultation because of decreased vision and headache. She has had progressive visual change in the right eye, but it goes back several months. She is also having intermittent headaches that can be quite severe when she has them. They are around the right frontal region, but they are not associated with pain with eye movement. She also reports she has a black spot in her right eye, which she has been aware of for about 1 to 2 years. This dark area that she sees is stationary. It moves where she looks. The patient was seen and evaluated carefully and the history reviewed. There is no known family history of unexplained visual decrease. The patient weighs 94 kilograms and is 68 inches tall. She takes Periactin and Implanon subdermal implant. On examination, the patient's vision today is best corrected 20/25-1 and 20/20 in the left eye. The ocular pressure is 16 and 18 mmHg. Color vision is 2.5/14 in the right eye 9.5/14 in the left eye. The pupils were equal without afferent defect. Confrontation delgado and motility were normal. The Amsler grid test shows blurring centrally in the right eye. The left eye is completely normal. The slit lamp examination is not helpful in determining the cause of her visual decrease; that is, theadnexa is completely normal. The cornea is clear, the anterior chamber is deep and quiet, the iris is normal and the lens is essentially clear. The capsule is healthy and the vitreous is quiet without any cells. Finally, careful assessment of the posterior pole shows a normal pink, healthy and normal optic nerve with a cup-to-disc ratio of 0.2 in each eye. There are no hemorrhages or peripapillary atrophy. Thevessels are normal. In the macula in the right eye, there is a circular abnormality with some drusen. In contrast, on looking at the left eye, the optic nerve is pink and healthy without any pathology.The vessels are normal and the macula is normal. There is no maculopathy in the left eye when comparing to the right eye. Finally, there are spontaneous venous pulsations in each eye. We then did visual delgado. In the right eye, the field has some nasal depression and a decreased foveal response. There also are exceedingly high false positives with 19 false- positive areas and false negatives. In the left eye, the foveal threshold is 34. There are again excessively high false positives. There is some central depression. Finally, we did do OCT of the nerve fiber layer and the macula. The nerve fiber layer is absolutely symmetric and normal at 96 and 99 microns, there is no evidence of optic nerve pathology. The fovea was looked at with OCT. When I look at the patient I do not see pathology that I can identify on OCT. It is impressive that we did get much better vision than was noted in your letter of 03/14/13. That is, the vision is today 20/25 slowly and 20/20. It appears that the new spectacles are helping. Havingsaid that, we could not get the right eye to 20/20 and she has an abnormal Amsler and decreased color vision in the right eye. The visual field is out of proportion to the macular change that we see. I do not see other pathology to explain that and I think part of that might well be testing with the excessive high false positives. The foveal threshold though I believe might well be depressed because of the macular change. The options that we have are to order multiple laboratory tests, neuroimaging and electrodiagnostic tests. I am suspicious that they will not be helpful. More importantly, I would like to have her see retina for assessment of the macula as that might well be the total explanation for the black spot inher vision and the somewhat decreased vision. Rather than order multiple tests that may be unnecessary, I am going to ask her first to see retina and we will ask her to see Dr Ming Montero. I do not think this is an emergency, but we will get it done in the fairly near future. I will see her the same day that she sees Dr Montero after she sees him and if he recommends, we could then go ahead and order additional testing, whether it be electrodiagnostic tests or laboratory tests or neuroimaging. I do not think neuroimaging is indicated. I will ask that she check with you, Dr Guerrero, regarding the headaches as well. This note was dictated with the patient and her mother present. We will facilitate an appointment with Dr Montero. I always appreciate his expertise and his ability to ferret out pathology and help us better understand macular and retinal pathology. Sincerely, Electronically Signed by Otoniel Coulter MD, FACS 04/10/2013 08:26 Otoniel Coulter MD, FACS Neuro-ophthalmology [address] [place] [address] - Otoniel Coulter MD, FACS - DV Job ID: SM Doc ID: [id number] Ext Doc ID: [id number] cc: [place] Escalante MD documented in this encounter Miscellaneous Notes Scanned Note-Null - MANAGER TREASURY, SCAN 2 - 03/23/2013 1044 EDT documented in this encounter Plan of Treatment Upcoming Encounters Date Type Specialty Care Team Description 06/25/2022 Telemedicine Family Medicine Chandrika Harrison MD Arrived [address] [place] [phone] (Wo rk) documented as of this encounter Visit Diagnoses Diagnosis Vision loss of right eye - Primary Unqualified visual loss, one eye Headache(784.0) Headache 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 Medication Sig Dispensed Refills Start Date End Date etonogestrel (IMPLANON) Insert 68 mg 0 12/11/2020 68 mg subdermal implant subdermally once. cyproheptadine Take 4 mg by mouth 0 (PERIACTIN) 4 mg tablet daily. added in this encounter Eye Exam Visual Acuity (Snellen - Linear) Right eye Left eye Dist cc 20/30 20/20 Dist ph cc NI Near cc J2 J1+ Correction: Glasses Tonometry (Applanation, 10:02) Right eye Left eye Pressure 16 18 Pupils Pupils Dark Light APD Right eye PERRL 5 4 None Left eye PERRL 5 4 None Visual Delgado Right eye Left eye Full Full Extraocular Movement Right eye Left eye Full, Ortho Full, Ortho Dilation Both eyes: 0.5% Mydriacyl, 2.5% Phenylep hrine @ 10:03 Amsler Right eye Left eye chart blurry, not able to see dot in mando ter Normal Color Right eye Left eye AOPIP 2.514 9.14 Stereo Fly: + Circles: 400 seconds External Exam Right eye Left eye External Normal Normal Slit Lamp Exam Right eye Left eye Lids/Lashes Normal Normal Conjunctiva/Sclera White and quiet White and quiet Cornea Clear Clear Anterior Chamber Deep and quiet,vermium movement Deep and quiet,vermium movement Iris Round and reactive Round and reactive Wearing Rx Sphere Cylinder [place] Right eye -1.00 +0.50 030 Left eye -1.00 +0.50 079 Age: one week Type: SVL Manifest Refraction Sphere Cylinder [place] Dist VA Near VA Right eye -1.25 +0.25 025 20/25-1 J2 Left eye -1.00 +0.50 080 20/20 Care Teams Gut Cleaner Relationship Specialty Start Date End Date Cindy Guerrero MD PCP - General 03/13/13 11/12/[address] [place] [phone] documented as of this encounter
--- OUTSIDE RECORDS SUMMARY | 2022-06-24 11:49 | XMS_ITS | Encounter Summary ---
:2000 Author Organization [facility] Address [address] [place] [address] Care Team Providers Name Role Phone Sohan Winters MD Primary Care Provider [phone] Reason for Referral Referral (Routine) - Specialty Report Received Specialty Diagnoses / Procedures Referred By Contact Refer red To Contact Obstetrics & Gynecology Diagnoses Supervision of high risk in second trimester Jessenia Weinberg Cht Skiver Operator, JR Kramer [address], [address] [place] [phone] Referral ID Status Reason Start Expiration Visits Visits Date Date Requested Authorized [id number] Specialty Specialty 12/11/2020 1 1 Report Services Received Required Question Answer What areas would you like the CHT to Donations Attendant focus on? Donations Attendant: Other Please specify: help with establishing MAT c are, needs PCP, needs to find more permanent housing Comments As we discussed in your visit today, yoli jefferson will be contacting you from the [facility] Team to schedule an gunner ointment with you. If you do not hear from the CHT within a week please call the [facility] Team at [facility]: [phone]. Referral (STAT) - Closed Specialty Diagnoses / Procedures Referred By Contact Refer red To Contact Obstetrics & Diagnoses Supervision of high risk in second trimester Jessenia Weinberg Cht Behavioral Gynecology JR Kramer [facility], [address], [address] [place] [address] Referral ID Status Reason Start Date Expiration Date Visits V isits Requested Authorized [id number] Closed Specialty 12/11/2020 1 1 Services Required Question Answer What areas would you like the CHT to focus Behavioral Health on? What goals would you like the patient to support for u nplanned , support meet? for her depression/mental he alth, help with smoking cessation Comments As we discussed in your visit today, yoli jefferson will be contacting you from the [facility] Team to schedule an gunner ointment with you. If you do not hear from the CHT within a week please call the [facility] at [facility]: [phone]. Referral (Routine) - Closed Specialty Diagnoses / Procedures Referred By Contact Refer red To Contact Obstetrics & Diagnoses Incidental Jessenia Weinberg Cht Registered Gynecology JR Kramer Dietitian, [address], [address] [place] [address] Referral ID Status Reason Start Date Expiration Date Visits V isits Requested Authorized [id number] Closed Specialty 12/11/2020 1 1 Services Required Question Answer What areas would you like the CHT to focus on? Nutriti on What goals would you like the patient to meet? nutriti on for subsequent Comments As we discussed in your visit today, yoli jefferson will be contacting you from the [facility] Team to schedule an gunner ointment with you. If you do not hear from the CHT within a week please call the [facility] at [facility]: [phone]. B/CORE BAKER (Routine) - Authorization Not Required Specialty Diagnoses / Procedures Referred By Contact Refer red To Contact Radiology Diagnoses Incidental Jessenia Weinberg, [facility] Us Procedures US OB FIRST TRIMESTER (LESS THAN 14 WEEKS) TRANSABDOMINAL [address] [facility] [address] [place] [address] [address], [address] [place] [address] Referral ID Status Reason Start Expiration Visits Visits Date Date Requested Authorized [id number] Authorization Not 12/11/2020 1 1 Required Reason for Visit Reason Comments Initial Visit Encounter Details Date Type Department Care Team Description 12/11/2020 Initial [facility] Jessenia Weinberg GA: [id number] [facility]om[facility] Health JR Kramer [address] [facility] [address] [place] [address] [address], [address] [place] [address] (Wo rk) Social History [...] Sign Reading Time Taken Comments Blood Pressure 108/74 12/11/2020 1016 EST Pulse - - Temperature - - Respiratory Rate - - Oxygen Saturation - - Inhaled Oxygen Concentration - - Weight 78.9 kg (174 lb) 12/11/2020 1016 EST Height 172.7 cm (5' 8) 12/11/2020 1016 EST Body Mass Index 26.46 12/11/2020 1016 EST documented in this encounter Functional Status [...] promethazine (PHENERGAN) Take 1 Tab by mouth 42 Tab 0 12/25/2020 12.5 mg tablet every 8 hours as needed for up to 14 days for Nausea. vit-iron Take 1 Tab by mouth 30 Tab 9 1 01/10/2021 fumarate-FA 27 mg iron- daily for 30 days. 0.8 mg tablet May substitute with iron that insurance will pay for documented in this encounter Progress Notes Jessenia Weibnerg CNM - 12/11/2020 1000 EST [facility] Women's Health - Initial Visit Subjective: Marlo Lewis is a 20 y.o. No LMP recorded (lmp unknown). Patient is . Here to establish care. US today for dating and viability reveals viable This is is desired. Partner is involved? No - getting a divorce She reports nausea Bleeding? No Concerns: Requests referral to psych for mental health eval and restarting medications - no feelingsof self harm Hx of prior complications? IUGR and previous @ 36 weeks Outpatient Medications Marked as Taking for the 12/11/20 encounter (Initial ) with Jessenia Weinberg CNM Medication Sig ??? ipratropium/albuterol sulfate (IPRATROPIUM-ALBUTEROL INHALATION) Inhale 2 Puffs as directed every 6 hours as needed. ? ? [DISCONTINUED] Vit27&Kihmenb-Lrvq-RJ 60 mg iron-1 mg tablet Take 1 Tab by mouth daily. ??? rizatriptan (MAXALT) 10 mg tablet Take 10 mg by mouth once as needed for Migraine. May repeat in2 hours if needed Other medications/substances since LMP: Suboxone 8 mg - buying on street - has not used heroin sinceshe was 17 Allergies Allergen Reactions ??? Adhesive Hives ??? Latex, Natural Rubber Hives OB History 2 Para 1 Term 1 AB Living 1 SAB TAB Ectopic Multiple Live Births 1 Past Medical History: Diagnosis Date ??? Anxiety ??? Depression ??? History of hepatitis C ??? Lumbar radicular pain ??? Migraines ??? PTSD (post-traumatic stress disorder) ??? Stye Right eye ??? Stye left eye : Past Surgical History: Procedure Laterality Date ??? SECTION ??? CYST INCISION AND DRAINAGE Right right eye ??? DILATION AND CURETTAGE OF UTERUS ??? HERNIA REPAIR 1998 Anginal hernia : Family History Problem Relation Age of Onset ??? Hypertension Mother ??? *Other(comment) Mother Migraines ??? *Other(comment) Sister migraines ??? Arthritis Maternal Grandfather ??? Thyroid Disease Maternal Grandfather ??? No Known Maternal Grandmother ??? No Known Sister ??? *Other(comment) Maternal Aunt some sort of blood disorder ??? Diabetes Neg Hx ??? Glaucoma Neg Hx ??? Macular Degeneration Neg Hx ??? Retinal Detachment Neg Hx ??? Keratoconus Neg Hx ??? Retinitis Pigmentosa Neg Hx ??? Stroke Neg Hx ??? Down's Syndrome Neg Hx ??? Sickle Cell Anemia Neg Hx ??? Sickle Cell Trait Neg Hx ??? Cystic Fibrosis Neg Hx ??? Intellectual Disability Neg Hx ??? Heart Defect Neg Hx ??? Defects Neg Hx ??? Thalassemia Neg Hx ??? Neural Tube Defect Neg Hx ??? Gigi-Sachs Neg Hx ??? Jessenia Disease Neg Hx ??? Muscular Dystrophy Neg Hx ??? [place]'s Chorea Neg Hx ??? Familial Dysautonomia Neg Hx ??? Other Inherited Genetic or Chromosomal Disorder Neg Hx Social History Occupational History Employer: [employer] Tobacco Use ??? Smoking status: Current Every Day Smoker Packs/day: 0.50 Years: 1.00 Pack years: 0.50 Types: Cigarettes ??? Smokeless tobacco: Never Used ??? Tobacco comment: 1/2 to 1 pack per day Substance and Sexual Activity ??? Alcohol use: Not Currently Frequency: Monthly or less Drinks per session: 1 or 2 Binge frequency: Never Comment: socially, on holidays ??? Drug use: Yes Types: Marijuana, Other-see comments Comment: daily MJ use; unprescribed Suboxone 8 mg - heroin was drug of chocie previously ??? Sexual activity: Yes Partners: Female Objective: BP 108/74 Ht 172.7 cm (68) Wt 78.9 kg (174 lb) LMP (LMP Unknown) BMI 26.46 kg/m?? See physical Will return tomorrow for exam and completing IVAP- as she had to go and catch the bus Assessment: 20 y.o. year old for IVAP visit Now 13.5 wks by US 1. Supervision of high risk in second trimester HEPATITIS C AB W REFLEX TO HCV RNA BY PCR PAP TEST AMB CONS/FOLLOW UP COMMUNITY HEALTH TEAM AMB CONS/FOLLOW UP COMMUNITY HEALTH TEAM AMB CONS/FOLLOW UP ADULT PSYCHIATRY CLINIC HEPATIC FUNCTION PANEL (ALB,ALK PHOS,ALT,AST,DBIL,TOT ELIAS,TOT PROT) 2. Incidental POCT TEST, VISUAL READ US OB FIRST TRIMESTER (LESS THAN 14 WEEKS) TRANSABDOMINAL BACTERIAL CULTURE, URINE CHLAMYDIA/N. GONORRHOEAE AMPLIFIED RNA HIV 1/2 ANTIGEN AND ANTIBODY, 4TH GENERATION HEPATITIS B SURFACE ANTIGEN COMPLETE BLOOD COUNT AND DIFFERENTIAL RUBELLA IGG ANTIBODY SYPHILIS SEROLOGY TYPE AND SCREEN VARICELLA IGG ANTIBODY URINE CHEMICAL (DIP) & SEDIMENT (MICRO) WITHOUT REFLEX TO CULTURE MISCELLANEOUS TEST, NON CUDAHY AMB CONS/FOLLOW UP COMMUNITY HEALTH TEAM CANCELED: US OB FIRST TRIMESTER (LESS THAN 14 WEEKS) TRANSVAGINAL 3. Depression during in second trimester AMB CONS/FOLLOW UP ADULT PSYCHIATRY CLINIC 4. Anxiety AMB CONS/FOLLOW UP ADULT PSYCHIATRY CLINIC 5. History of opioid abuse ([facility]) AMB CONS/FOLLOW UP ADULT PSYCHIATRY CLINIC 6. History of bipolar disorder AMB CONS/FOLLOW UP ADULT PSYCHIATRY CLINIC 7. H/O: 8. Nausea and vomiting in Plan 1. care: labs ordered- to include UDS, Hep C 2. Pap No: Will have pt sign records release - states pap is UTD 3. Genetic screening discussed: Yes 4. Reviewed cfDNA testing. Interested in NIPT for aneuploidy? Unsure 5. Reviewed carrier testing. Interested in recessive carrier screening? unsure 6. Recommend Nutrition and CHT visits, referrals placed by nursing team 7. Education: Oriented to practice, IVAP packet reviewed with client by RN & handouts given 8. First trimester precautions reviewed 9.) Discussed smoking cessation; however, will address this more after patient is in MAT program 10.) Needs MAT program PA[place] - willing and receptive - discuss with Shanon [place] to get patient fast tracked in as she is buying Suboxone on street 11) Referral to psych made - medication management 12) Refer to establish care at PCP 13) Phenergan for nausea and vomiting 14) PNV sent to pharmacy Depression, anxiety, anger disorder, bipolar disorder, 8mg suboxone PCP, MAT, Psych consult Phenergan, PNV AP visit in 4 weeks, call or see sooner PRN Deysi Rosales RN - 12/11/2020 1000 EST Pt reports constant nausea. Occasional vomiting. Able to keep food/liquids down sometimes. She is smoking marijuana to help cope with nausea, but is open to a prescription for nausea medication today. She has also been taking Suboxone 8-2mg films everyday unprescribed. She recognizes that she needs to re-establish in a MAT clinic. States she has no PCP care at this time. Pt would also like a psych referral - she states her mood has not been good. Denies suicidal thoughts - just feels sad. She states she struggles with manic-depressive disorder and has been unmedicated for the past year. Discussed referrals to Mayi from [facility] and Shanon Lnad, director of social services. Pt is agreeable to these. Completed education with pt with review of the IVAP booklet. Reviewed timeline of . Discussed medications that are safe to take during and non-pharmacological interventions for various conditions that may occur during . Reviewed handouts on , nutrition, genetic screening, and exercises. Pt interested in both cfDNA and cfSMA testing, but did not bring her insurance cards today, so will complete these another time. Reviewed programs/resources that pt may find helpful during as outlined in IVAP booklet. Labs and referrals ordered. documented in this encounter Plan of Treatment Upcoming Encounters Date Type Specialty Care Team Description 06/25/2022 Telemedicine Family Medicine Chandrika Harrison MD Arrived [address] [place] [phone] (Wo rk) Scheduled Orders Name Type Priority Associated Order Schedule Diagnoses POCT TEST, Point of Care Routine Incidental Ordere d: VISUAL READ Testing 12/11/2020 OB FIRST TRIMESTER Imaging Routine Incidental Expect ed: (LESS THAN 14 WEEKS) 021, TRANSABDOMINAL Expires: 12/11/2021 CHLAMYDIA/N. Microbiology Routine Incidental Ordered: GONORRHOEAE AMPLIFIED 2020 RNA URINE CHEMICAL (DIP) & Lab Routine Incidental Order ed: SEDIMENT (MICRO) 12/11/2020 WITHOUT REFLEX TO CULTURE MISCELLANEOUS TEST, Lab Routine Incidental Ordered: NON ANGULO 12/11/2020 PAP TEST Pathology Routine Supervision of high Ordered: risk in 12/11/2020 second trimester Scheduled Referrals Name Type Priority Associated Diagnoses Order S chedule AMB CONS/FOLLOW UP Outpatient Referral Routine Incidental preg norman Expected: [facility] 12/11/2020 TEAM (Approximate), Expires: 12/11/2021 AMB CONS/FOLLOW UP Outpatient Referral Routine Supervision of high Expected: [facility] risk in 01/14/ 2021 TEAM second trimester (Approximat e), Expires: 12/11/2021 AMB CONS/FOLLOW UP Outpatient Referral Routine Supervision of high Expected: [facility] risk in 2020 TEAM second trimester (Approximat e), Expires: 12/11/2021 documented as of this encounter Procedures Procedure Name Priority Date/Time Associated Diagnosis Comme nts BACTERIAL CULTURE, Routine 12/11/2020 10:15 Incidental pregnan cy Results for this URINE EST procedure are i n the results section. documented in this encounter Results BACTERIAL CULTURE, URINE (12/11/2020 10:15 EST) Pathologist Sig nature [facility]UAL [facility] COLONY COUNT 10,000-100,000 CFU/ML [facility] Specimen Urine (substance) - Urine specimen colle ction, clean catch (procedure) Performing Organization Address City/State/ZIP Code Phon e Number [facility] [address] [place] [address] documented in this encounter Visit Diagnoses Diagnosis Supervision of high risk in se cond trimester - Primary Unspecified high-risk Incidental state, incidental Depression during in second tr imester Anxiety Anxiety state, unspecified History of opioid abuse ([facility]) ([facility]) Opioid abuse, in remission History of bipolar disorder Personal history of affective disorder H/O: Other postprocedural status Nausea and vomiting in Unspecified vomiting of , unspe cified as to episode of care documented in this encounter Discontinued Medications Medication Sig Discontinue Reason Start Date End Date levonorgestrel (KATY) by intrauterine Therapy completed 12/11/2020 14 mcg/24 hour (3 route. years) intrauterine device etonogestrel (IMPLANON) Insert 68 mg Therapy completed 12/11/2020 68 mg subdermal implant subdermally once. amitriptyline (ELAVIL) Take 25 mg by mouth daily . Therapy complete d 12/11/2020 10 mg tablet traZODone (DESYREL) 50 Take 50 mg by mouth Therapy completed 12/11/2020 mg tablet at bedtime. venlafaxine (EFFEXOR) Take 37.5 mg by mouth Therapy completed 12/11/2020 37.5 mg tablet daily. traMADol (ULTRAM) 50 mg Take 50 mg by mouth 3 times daily as needed . Therapy completed 12/11/2020 tablet ibuprofen (MOTRIN) 200 Take 200 mg by mouth Therapy completed 12/11/2020 mg tablet every 6 hours. PROPRANOLOL HCL Take by mouth daily. Therapy completed 12/11/2020 (PROPRANOLOL ORAL) methadone (DOLOPHINE) Take 95 mg by mouth Therapy completed 12/11/2020 10 mg tablet daily. Take 1 Tab by mouth Alternate therapy Vit27&Isunahg-Kdcn-MU daily. 60 mg iron-1 mg tablet documented as of this encounter Historical Medications This list may reflect changes made after this encounter. Medication Sig Dispensed Refills Start Date End Date ipratropium/albuterol Inhale 2 Puffs as 0 sulfate directed every 6 (IPRATROPIUM-ALBUTEROL hours as needed. INHALATION) methadone (DOLOPHINE) 10 Take 95 mg by mouth 0 12/11/2020 mg tablet daily. metroNIDAZOLE (FLAGYL) Take 500 mg by 0 0 03/06/2021 500 mg tablet mouth. Take 1 Tab by mouth 0 12/11 Vit27&Zwcuezt-Mvdm-BM 60 daily. mg iron-1 mg tablet added in this encounter Care Teams Business Analysis Specialist Relationship Specialty Start Date End Date Sohan Winters MD PCP - General 11/13/14 04/29/21 [address] [place] [address] documented as of this encounter
--- OUTSIDE RECORDS SUMMARY | 2022-06-24 11:49 | XMS_ITS | Encounter Summary ---
:2000 Author Organization [facility] Address [address] [place] [address] Care Team Providers Name Role Phone Cindy Guerrero MD Primary Care Provider Encounter Details Date Type Department Care Team Description 03/22/2013 Abstract [facility] Ophthalmology Taina Crystal, [facility] [address] [place] [address] Social History Tobacco Use Types Packs/Day Years [...] Family Medicine Chandrika Harrison MD Arrived [address] [place] [phone] (Wo rk) documented as of this encounter Visit Diagnoses Not on filedocumented in this encounter Care Teams Roughener Relationship Specialty Start Date End Date Cindy Guerrero MD PCP - General 03/13/13 11/12/[address] [place] [phone] documented as of this encounter
--- OUTSIDE RECORDS SUMMARY | 2022-06-24 11:49 | XMS_ITS | Encounter Summary ---
:2000 [place] [address] Care Team Providers Name Role Phone None Primary Care Provider Unavailable Reason for Visit Auth/Cert Specialty Diagnoses / Procedures Referred By Contact Refer red To Contact Diagnoses malpresentation Procedures PRO DELIVERY ONLY @ DELIVERY (WRVU 16.13) Referral ID Status Reason Start Date Expiration Date Visits Requ ested Visits Authorized [id number] 1 1 Encounter Details Date Type Department Care Team Description 03/14/2018 Anesthesia Event [facility] Olman Silva MD [facility] [place] [address] [facility] [place] [address] [place] [address] Anesthesia Record Procedure Summary Procedure Name Responsible Anesthesia Start Anesthesia Stop Time Anesthesiologist Time @ DELIVERY Olman Jerry MD 03/14/18 1040 1221 (WRVU 16.13) (N/A Abdomen) Events Date Time Event Comment 03/14/2018 1040 AN Verify 1040 Start 1040 An Start Data 1103 Spinal 1103 L Uterine Displacement 1105 Anesthesia Ready 1124 Skin Incision 1133 1136 Uterine Incision 1137 Baby Delivered 1212 Procedure Stop 1219 Nerve Block 1221 an stop data 1221 Recovery or ICU Handoff Patient care was transferred to the destination unit staff after review of the patient's medica l history, current anesthetic/surgi sb status and plan, according to the Provider Handoff Checklist. 1221 Stop Name Total fentaNYL 100 mcg ePHEDrine 10 mg Ketorolac 15 mg Ondansetron 8 mg BUpivacaine 0.75% spinal 13.5 mg Oxytocin INF 20 mL Oxytocin INF 358.33 mL Morphine(Neuraxial) 150 mcg ceFAZolin 2 g Promethazine 12.5 mg Lactated Ringers 1,700 mL Agents Name O2 Air N2O O2 Auxiliary Flowmeter 1 Blood No blood administrations on file. Lines, Drains, and Airways Type Details Placement Removal Rash 03/14/18; 0830; calf 03/14/18 0830 by Mariann Marie RN (RETIRED By [facility]) 03/14/18; 1130; low 03/14/18 1130 by Incision transverse Juany Grullon RN PIV 03/14/18; 1003; 03/14/18 1003 by 03/16/18 0007 b y cephalic vein (lateral Maria Elena Nguyen, RN Marissa Augustin, side of arm), left; RN yito-pyx-gfsyhe catheter system; 20 gauge; Maria Elena Nguyen RN VAS; intradermal injection, tolerated well, appears comfortable; no longer indicated; 03/16/18; 0007 Urethral Catheter 03/14/18; 1110; 03/14/18 1110 by 03/14/18 2110 by Abdominal surgery; Johnna Varela, Cassie Browne, Prolonged RN RN Immobilization; indwelling double lumen catheter; 100% silicone; 14; inserted at this facility; 1; 10; 10; none; drainage bag to dependent drainage; urethral catheter removed; 03/14/18; 211 documented in this encounter Social History Tobacco Use Types Packs/Day Years Used Date Current Every Day Smoker 0.05 Smokeless Tobacco: Former User Alcohol Use Standard Drinks/Week Comments No 0 (1 standard drink = 0.6 oz pure alcoho l) Sex Assigned at Date Recorded Not on file documented as of this encounter OR Notes Anesthesia Procedure Notes - Paulino Guajardo MD - 03/14/2018 12:27 PM EDT Associated Order(s): ANESTHESIA BLOCK Procedure: Anesthesia Block Block: Post-op Pain Control, TAPs Start time: 03/14/2018 12:10 PM End time: 03/14/2018 12:20 PM Patient Location: Main OR Indication/Prep Position: supine Prep: chlorhexidine, mask, cap, sterile gloves, hand hygeine, patient draped Laterality: bilateral Injection Information Ultrasound Guidance: live and in-plane Ultrasound guidance was used to identify the targeted neuronal structure. Ultrasound was also used to identify needle positon and to identify surrounding tissue (bone, muscle, and blood vessels) to prevent inadvertent intraneural or intravascular needle placement and injection. The spread of local anesthetic was confirmed with live ultrasound imaging. Injection technique:single-shot Needle Length: 10 cm Gauge: 22 Needle Type: T-anejf-fsrpp Medication injection made incrementally with aspirations. Nerve infiltration solution through a needle Exparel 266 mg Resident: PAULINO GUAJARDO Second Resident: CESAR BEGUM Fellow: Attending Physician: DANNY SEALS ~~~~~~~~~~~~~~~~~~~~~~~~~~~~~~~~~~~~~~~~~~~~~~~~~~~~~~~~~~~~ Anesthesia Procedure Notes - Cesar Looney MD - 03/14/2018 11:12 AM EDT Associated Order(s): ANE NEURAXIAL UPDATED Procedure: Neuraxial Block Primary Anesthetic Type: Spinal The patient was greeted. The sedation plan, its benefits, risks and alternatives were discussed withthe patient. The patient has consented to the procedure. The medical history and chart were reviewed. The timeout was performed. Start time: 03/14/2018 11:02 AM End time: 03/14/2018 11:03 AM Patient [facility] Patient Prep Position: Sitting Prep: Hand Hygiene, Hat, Mask, Sterile Gloves, Chlorhexidine, Povidone-Iodine and Patient Draped Injection technique: single-shot Skin Anesthetic Lidocaine 1% 2 ml Procedure Technique Level of needle insertion: L3-4 Needle approach: midline Needle Type: [facility] Gauge: 25 Needle length: 3.5 in Number of attempts: 1 Intrathecal Injection The patient received the following medication/s as an intrathecal injection: Bupivacaine 0.75% w dextrose 1.8 ml Fentanyl 15 mcg Morphine 150 mcg Epinephrine Epi Wash Events/Notes Events: None Resident/LIFEGUARD: YOVANNY AGUILAR Second Resident/LIFEGUARD: CESAR LOONEY Fellow: Attending Physician: OLMAN JERRY ~~~~~~~~~~~~~~~~~~~~~~~~~~~~~~~~~~~~~~~~~~~~~~~~~~~~~~~~~~~~ Anesthesia Preprocedure Evaluation - Yovanny Aguilar - 03/14/2018 6:08 AM EDT Pre-Anesthesia Evaluation for: Marlo Andino Joshua a 18 y.o. female. Procedure(s): @ DELIVERY ([facility]VU 16.13) Patient Active Problem List Diagnosis ? Substance use disorder ??? Opioid dependence ??? [...] ??? TOOTH EXTRACTION ??? UMBILICAL HERNIA REPAIR Social History Substance Use Topics ??? Smoking status: Current Every Day Smoker Packs/day: 0.05 ??? Smokeless tobacco: Former User ??? Alcohol use No History Drug Use ??? Yes ??? Special: Opioids (heroin, pills), Marijuana Comment: FRANCHESCA; treatment with methadone; daily MJ Allergies Allergen Reactions ??? Latex Hives ??? Adhesive Tape Other (See Comments) blisters Medications: MAR and/or home medications have been reviewed. Physical Exam: There were no vitals filed for this visit. There is no height or weight on file to calculate BMI. Airway Assessment: Mallampati: II TM distance: >3 FB Neck ROM: full Cardiovascular Assessment: Pulmonary Assessment: Dental Assessment: - normal exam Misc Assessment: IV access: Peripheral line Anesthesia Plan: ASA 3 spinalMarlo is a 18 y/o 82.1kg female at 36w1d presenting for section in setting of breachpresentation with IUGR (EFW 1867grams). PMH significant for methadone use in setting of prior opioiddependence, asthma, anxiety, active smoker, hepC. No prior anesthetic records on file. Allergies: latex, adhesive tape Labs: Anesthetic plan: Spinal Standard ASA monitors Spinal/TAP block for post-operative pain control in setting of methadone use Region - Informed Consent: Anesthetic plan and risks discussed with patient. Plan discussed with resident and attending. PAT Staff Note documented in this encounter Plan of Treatment Upcoming Encounters Date Type Specialty Care Team Description 10/19/2022 Office Visit Ophthalmology documented as of this encounter Procedures Procedure Name Priority Date/Time Associated Comments Diagnosis ANE NEURAXIAL Routine 03/20/2018 7:57 PM Results for this UPDATED EDT procedure are i n the results section. ANESTHESIA BLOCK Routine 03/15/2018 12:23 PM Resu lts for this EDT procedure are i n the results section. documented in this encounter Results ANE NEURAXIAL UPDATED (03/20/2018 7:57 PM EDT) Narrative Olman Jerry MD - 03/20/2018 7:57 PM EDT Cesar Looney MD ? 03/14/2018 11:13 AM Procedure: ?? Neuraxial Block Primary Anesthetic Type: Spinal The patient was greeted. The sedation pl an, its benefits, risks and alternatives were discussed with the pat ient. ??The patient has consented to the procedure. ??The medical history and chart were reviewed. ??The timeout was performed. Start time: 03/14/2018 11:02 AM End time: 03/14/2018 11:03 AM Patient Location: [facility] Patient Prep Position: Sitting Prep: Hand Hygiene, Hat, Mask, Sterile G loves, Chlorhexidine, Povidone-Iodine and Patient Draped Injection technique: single-shot Skin Anesthetic Lidocaine 1% ??2 ml Procedure Technique Level of needle insertion: L3-4 Needle approach: midline Needle Type: [facility] Gauge: 25 Needle length: 3.5 in Number of attempts: 1 Intrathecal Injection The patient received the following medic ation/s as an intrathecal injection: Bupivacaine 0.75% w dextrose 1.8 ml Fentanyl ??15 mcg Morphine ??150 mcg Epinephrine ??Epi Wash Events/Notes Events: ??None Resident/LIFEGUARD: ? JOE AGUILAR Second Resident/LIFEGUARD: ??KELI LOONEY A Fellow: ? Attending Physician: ? SHAY JERRY ~~~~~~~~~~~~~~~~~~~~~~~~~~~~~~~~~~~~~~~~ ~~~~~~~~~~~~~~~~~~~~ Olman Jerry MD [employer]ET[employer] STRATEGIST [facility] Anesthesia Block (03/15/2018 12:23 PM EDT) Narrative Danny Seals MD - 03/15/2018 12: 23 PM EDT Paulino Guajardo MD ? 03/14/2018 12:28 PM Procedure: ??Anesthesia Block Block: Post-op Pain Control, TAPs Start time: 03/14/2018 12:10 PM End time: 03/14/2018 12:20 PM ?? Patient Location: Main OR ?? Indication/Prep Position: supine Prep: chlorhexidine, mask, cap, sterile gloves, hand hygeine, patient draped Laterality: bilateral Injection Information Ultrasound Guidance: live and in-plane ?Ultrasound guidance was used to id entify the targeted neuronal structure. ??Ultrasound was also used to identify needle positon and to identify surrounding tissue (bone, muscl e, and blood vessels) to prevent inadvertent intraneural or intravascular needle placement and injection. ?? The spread of local anesthetic was confi rmed with live ultrasound imaging. Injection technique:single-shot Needle Length: 10 cm Gauge: 22 Needle Type: P-avgnl-cppvk Medication injection made incrementally with aspirations. Nerve infiltration solution through a ne edle Exparel 266 mg Resident: ?PAULINO GARCIA Second Resident: ? KELI BEGUM Fellow: ? Attending Physician: ??DANNY SEALS ?? ~~~~~~~~~~~~~~~~~~~~~~~~~~~~~~~~~~~~~~~~ ~~~~~~~~~~~~~~~~~~~~ Danny Seals MD [employer] MARKETING STRATEGIST [facility] documented in this encounter Visit Diagnoses Not on filedocumented in this encounter Administered Medications Inactive Administered Medications - up to 3 most recent administrations Medication Order MAR Action Action Date Dose Rate Site BUpivacaine 0.75% in dextrose Given 03/14/2018 11:03 AM EDT 13.5 mg 8.25% (intrathecal) (SENSORCAINE) 0.75 % (7.5 mg/mL) injection PRN, Starting on Tue03/14/18 at 1103, Until Tue03/14/18 at 1221, Anesthesia Intra-op, Routine ceFAZolin (ANCEF) 1g in dextrose 5% 50mL Given 03/14/2018 11:14 AM EDT 2 g PRN, Starting on Tue03/14/18 at 1114, Until Tue03/14/18 at 1221, Administer over 30 Minutes, Anesthesia Intra-op ePHEDrine 5 mg/mL multi-dose injection Given 03/14/2018 11:46 AM EDT 10 mg PRN, Starting on Tue03/14/18 at 1146, Until Tue03/14/18 at 1221, Anesthesia Intra-op, Routine fentaNYL 50 mcg/mL multi-dose injection Given 03/14/2018 11:51 AM EDT 85 mcg PRN, Starting on Tue03/14/18 at 1103, Until Tue03/14/18 at 1221, Pain, Anesthesia Intra-op, Routine Given 03/14/2018 11:03 AM EDT 15 mcg ketorolac (TORADOL) injection Given 03/14/2018 12:06 PM EDT 15 mg PRN, Starting on Tue03/14/18 at 1206, Until Tue03/14/18 at 1221, Pain, Anesthesia Intra-op, Routine lactated Ringers infusion New Bag 03/14/2018 11:49 AM EDT CONTINUOUS PRN, Starting on Tue03/14/18 at 1040, Until Tue03/14/18 at 1221, Anesthesia Intra-op New Bag 03/14/2018 10:40 AM EDT morphine (PF) (DURAMORPH) 0.5 mg/mL Given 03/14/2018 11:03 AM ED T 150 mcg injection PRN, Starting on Tue03/14/18 at 1103, Until Tue03/14/18 at 1221, Pain, Anesthesia Intra-op, Routine ondansetron (ZOFRAN) injection Given 03/14/2018 11:10 AM EDT 8 mg PRN, Starting on Tue03/14/18 at 1110, Until Tue03/14/18 at 1221, Nausea, Anesthesia Intra-op, Routine oxytocin (PITOCIN) 30 units in New Bag 03/14/2018 11:38 AM 500 mL/ hr 500 mL/hr sodium chloride 0.9% 500 mL EDT infusion CONTINUOUS PRN, Starting on Tue03/14/18 at 1138, Until Tue03/14/18 at 1221, Anesthesia Intra-op, Routine oxytocin (PITOCIN) 30 units in sodium Given 03/14/2018 11:38 AM EDT 20 mLs chloride 0.9% 500 mL infusion PRN, Starting on Tue03/14/18 at 1138, Until Tue03/14/18 at 1221, Anesthesia Intra-op, Routine promethazine (PHENERGAN) injection Given 03/14/2018 11:44 AM EDT 12.5 mg PRN, Starting on Tue03/14/18 at 1144, Until Tue03/14/18 at 1221, Nausea, Anesthesia Intra-op, Routine documented in this encounter Care Teams Cloth Dyer Relationship Specialty Start Date End Date None PCP - General 10/13/17 07/27/21 None documented as of this encounter
--- OUTSIDE RECORDS SUMMARY | 2022-06-24 11:49 | XMS_ITS | Encounter Summary ---
:2000 Author Organization [facility] Address [address] [place] [address] Care Team Providers Name Role Phone Sohan Winters MD Primary Care Provider [phone] Encounter Details Date Type Department Care Team Description 12/11/2020 Travel Social History Tobacco Use Types Packs/Day [...] Family Medicine Chandrika Harrison MD Arrived [address] [place] [address] [phone] (Wo rk) documented as of this encounter Visit Diagnoses Not on filedocumented in this encounter Care Teams Policy Director Relationship Specialty Start Date End Date Sohan Winters MD PCP - General 11/13/14 04/29/21 [place] [address] documented as of this encounter
--- OUTSIDE RECORDS SUMMARY | 2022-06-24 11:49 | XMS_ITS | Encounter Summary ---
:2000 Author Organization [facility] Address [address] [place] [address] Care Team Providers Name Role Phone Cindy Guerrero MD Primary Care Provider Encounter Details Date Type Department Care Team Description 10/18/2013 Hospital Encounter [facility] - Otoniel Coulter Tilley MD [address] 111 [facility], [address] [place] [id number] (Wo rk) Social History Tobacco Use Types [...] this encounter Discharge Diagnoses Diagnosis 784.0 HEADACHE[ICD-9-CM] 369.8 VISUAL LOSS, ONE EYE NOS[ICD-9-CM] 368.40 VISUAL FIELD DEFECT NOS[ICD-9-CM] documented in this encounter Medications at Time of Discharge Medication Sig Dispensed Refills Start Date End Date cyproheptadine Take 4 mg by mouth 0 (PERIACTIN) 4 mg tablet daily. etonogestrel (IMPLANON) Insert 68 mg 0 12/11/2020 68 mg subdermal implant subdermally once. ibuprofen (MOTRIN) 200 Take 200 mg by mouth 0 12/11/2020 mg tablet every 6 hours. documented as of this encounter Discharge Disposition Disposition Code Departure Means Destination Auto Discharge Home documented in this encounter Plan of Treatment Upcoming Encounters Date Type Specialty Care Team Description 06/25/2022 Telemedicine Family Medicine Chandrika Harrison MD Arrived [address] [place] [address] [phone] (Wo rk) documented as of this encounter Visit Diagnoses Not on filedocumented in this encounter Care Teams Cotton Feeder Relationship Specialty Start Date End Date Cnidy Guerrero MD PCP - General 03/13/13 11/12/[address] [place] [phone] documented as of this encounter
--- OUTSIDE RECORDS SUMMARY | 2022-06-24 11:49 | XMS_ITS | Encounter Summary ---
:2000 Author Organization [facility] Address [address] [place] [address] Care Team Providers Name Role Phone Sohan Winters MD Primary Care Provider [phone] Reason for Visit Reason Comments Hip Pain right Encounter Details Date Type Department Care Team Description 01/09/2015 Office Visit [facility] Murali Burton Right hip pain (Primary Dx); Sports Medicine MD Krishna CRPS (complex regional pain syndrome) Program - [address] [place] [address] [place], [facility] [phone] Social History Tobacco Use Types Packs/Day Years [...] - - Weight 95.3 kg (210 lb) 01/09/2015 1132 EST Height 172.7 cm (5' 8) 01/09/2015 1132 EST Body Mass Index 31.93 01/09/2015 1132 EST documented in this encounter Progress Notes Murali Burton MD - 01/09/2015 1156 EST Chief Complaint Patient presents with ??? Hip Pain right SUBJECTIVE: Marlo Lewis is a 14 y.o. female who presents to the office to follow up for her right hip MRA. She is still having pain to the outside of the hip and deep. She presented several weeks ago with a long standing history of right hip pain that began when she started to get off the floor. She felt a twinge of pain, her hip seemed to get stuck and she had numbness in her leg. Her hip pops a lot and it can be heard by everyone. Past medical, past surgical, medications, allergies, social history and 12 system ROS were all documented on the intake form. These were reviewed and there are no changes. OBJECTIVE: Ht 172.7 cm (68) Wt 95.255 kg (210 lb) BMI 31.94 kg/m2 General: awake, alert, NAD, pleasant EENT: extraocular motion grossly intact Pulmonary: normal respirations, non-labored breathing Psych: normal affect, thoughts are logical and sequential Examination of right hip deferred DIAGNOSTIC DATA: Plain films taken previously and independently reviewed by me including AP pelvis and frog leg lateral of right hip reveal normal study. MRI of the right hip is normal. No signs of stress injury, muscle strain. This was a non-contrast study. MRA of the right hip was also normal. No labral tear. Small cleft that is developmental. ASSESSMENT: Chronic right hip pain that is not anatomic. No structural damage. There is numbness down the lateral aspect of the leg that is not dermatomal. Her lumbar spine MRI, hip MRI and plain films are normal. No diagnosis would explain her pain and area of numbness although it is possible she has developed acomplex regional pain syndrome. PLAN: She was advised to seek out pain clinic to discuss the cause of her chronic pain. There are no treatments or interventions planned from sports medicine. I will leave the referral to pain clinic to the PCP. No follow up with sports medicine recommended. The patient verbalized understanding of the above and agreed with this plan. All of her questions were answered to her satisfaction today. 25 minutes of face to face time was spent with the patient, 15 minutes were spent on counseling and coordination of care of the patient's right hip pain. Murali Burton M.D. 01/09/2015 11:56 Cc: Sohan Winters MD documented in this encounter Plan of Treatment Upcoming Encounters Date Type Specialty Care Team Description 06/25/2022 Telemedicine Family Medicine Chandrika Harrison MD Arrived [address] [place] [address] [phone] (Wo rk) documented as of this encounter Visit Diagnoses Diagnosis Right hip pain - Primary Pain in joint, pelvic region and thigh CRPS (complex regional pain syndrome) Mononeuritis of unspecified site documented in this encounter Care Teams Public Information Relations Manager Relationship Specialty Start Date End Date Sohan Winters MD PCP - General 11/13/14 04/29/21 [place] [address] documented as of this encounter
--- OUTSIDE RECORDS SUMMARY | 2022-06-24 11:49 | XMS_ITS | Encounter Summary ---
:2000 Author Organization [facility] Address [address] [place] [address] Care Team Providers Name Role Phone Cindy Guerrero MD Primary Care Provider Reason for Visit Reason Comments Headache DIAZ's for years. Hasn't salcedo ed. Not daily. Doesn't know how many times weekly. Sometimes Maxalt will relieve the DIAZ, depends on how bad they are. Decreased Visual Acuity Hasn't noticed any changes i n vision. Still having eye pain yeah! the usual. After awh ile pt opened up a little. Says right eye is getting worse, can't see central anymore. Says left eye seems blurrier. I t old pt not legal to drive with the vision we get today. Encounter Details Date Type Department Care Team Description 05/16/2014 Office Visit [facility] Otoniel Coulter MD Ophthalmology - [address], [address] [place] [address] [place], [place] [phone] (Wo rk) Social History Tobacco Use [...] - - Weight 90.7 kg (200 lb) 05/16/2014 1019 EDT Height 172.7 cm (5' 8) 05/16/2014 1019 EDT Body Mass Index 30.41 05/16/2014 1019 EDT documented in this encounter Discharge Diagnoses Diagnosis 369.8 VISUAL LOSS, ONE EYE NOS[ICD-9-CM] 362.57 DRUSEN (DEGENERATIVE)[ICD-9-CM] 379.91 PAIN IN OR AROUND EYE[ICD-9-CM] 784.0 HEADACHE[ICD-9-CM] documented in this encounter Progress Notes Otoniel Coulter MD - 05/16/2014 1232 EDT . Base Eye Exam Visual Acuity Right Left Dist cc 20/200-1 20/200 Dist ph cc NI NI Near sc J16 J10 Near cc J5 J5 Method: Snellen - Linear Comments: Pt can read her cell phone with normal font, but says she can't read the near chart. Tells me that the font on her phone is larger. When I looked at the font, it was normal size, approximately J3 or J5. WS Holds card at about 6-7 from face to read. Tonometry Right Left Pressure 17 17 Method: Applanation Time: 11:57, WS Pupils Dark React APD Right 7 4 None Left 7 4 None Visual Delgado Right Left Restrictions Partial superior temporal, inferior temporal, superior nasal, inferior nasal deficiencies Partial superior temporal, inferior temporal, superior nasal, inferior nasal deficiencies Comments: Very constricted each eye. WS. Extraocular Movement Right Left Result Full Full Neuro/Psych Oriented x3: Yes Mood/Affect: Normal Dilation Both eyes: Paremyd @ 11:57 Additional Tests Amsler Right Left Amsler Missing most of center of grid. sees the edges & corners. Missing lines & wavy lines Color Right Left Color 06/10 eccentric 07/11 Method: AOPIP Comments: For right eye has to look up to see the plates. WS Slit Lamp and Fundus Exam Slit Lamp Exam Right Left Conjunctiva/Sclera White and quiet White and quiet Cornea Clear, all 5 layers. Clear, all 5 layers. Anterior Chamber Deep and quiet, no F/C Deep and quiet, no F/C Iris Round and reactive, no TI Round and reactive, no TI Lens Clear Clear Vitreous Normal Normal Fundus Exam Right Left Disc P/H. No heme or PPA. P/H. No heme or PPA. C/D Ratio 0.1 0.2 Macula Normal Normal Vessels Normal Normal Refraction Wearing Rx Sphere Cylinder [place] Right -1.00 +0.50 21 Left -1.50 +0.75 4 Type: SVL Manifest Refraction (Auto) Sphere Cylinder [place] Dist Right -0.75 +0.25 178 20/100-2+1 Left -0.50 Sphere 011 20/200 Manifest Refraction #2 Sphere Cylinder [place] Dist Right Left -2.00 20/100-2 Manifest Refraction #3 (Auto) Sphere Cylinder [place] Dist Right -0.50 +0.25 176 20/40-2 Left -0.75 +0.50 179 20/25 squinting Manifest Refraction #4 Sphere Cylinder [place] Dist Right -1.75 Sphere 20/25-2 Left -1.75 Sphere 20/25+2 Comments: M3 = WET A/R Cornea examined, all 5 layers. ROS, Medications, Allergies reviewed. CVF, Pupil check and EOM's rechecked to include versions & ductions. Lids, lashes, lacrimal and orbit examined. All normal unless otherwise noted. This note has been dictated and scanned. 78D were used for the posterior exam. IMP: Marlo was seen today for headache and decreased visual acuity. Diagnoses and associated orders for this visit: Vision loss of right eye - Visual Field Exam, Extended Headache Drusen of right macula Test Performed: HVF 24-2 size 5. Indications for test: Decreased vision both eyes, ?psychological. Results/Findings: Full. Plan: No further testing apparent at this time. Can refer to [place] if family wishes, but don't feelit will help. Recommend talk to pt's therapist about intermittent vision loss. Recommend not drive until things are resolved and is seeing good ALL the time. PLAN: PRN, There are non physiologic aspects to this exam. I saw and examined the patient with the scribe. I agree with the findings documented in the scribes note. documented in this encounter Consult Notes Otoniel Coulter MD - 05/17/2014 0337 EDT DIVISION OF OPHTHALMOLOGY CONSULTATION - 05/16/2014 Cindy Guerrero MD [address] [phone] Guerrero: I have had the privilege of seeing Marlo Lewis on several occasions because of decreased vision andconcern for any significant pathology that might account for his visual decrease. The patient reports that her vision comes and goes and is transient. She has been identified to have a few drusen in the macula, but no other pathology has been identified. Specifically, she has had neuro imaging that was completely normal without pathology. 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 She has had electrodiagnostic tests including an electroretinogram which was normal, both photopic and scotopic, as well as a visual evoked potential. The only thing that was abnormal aboutthe visual evoked potential was a suggestion of retrochiasmatic decrease on 1 side as compared to the other, but this should be reflected in the visual field with a homonymous type defect and this has not been identified. The patient's vision has been quite variable. Today on examination initially her vision was 20/200 in each eye and the near was Simona 16 and Simona 10. That was with her spectacles. With refraction and also cycloplegic refraction, there was a slight increase in myopic correction, although small. She improved to 20/25 -2 and 25+; in fact, she improved to 20/20 in each eye with just a slight increase in myopic correction. With her current spectacles after being dilated, she was able to make out the 20/25 row. This is in contrast to the previous vision in the range of 20/200. The patient can see her cell phone with normal font, but cannot read the near chart. The patient has had benefit of retinal consultation with Dr Montero as well. She has also seen Dr Vo at [facility]. No specific pathology was identified other than some mottling in the macula in the right eye. We did do a size 5 test object in the visual field and there was no scotoma in either eye and the foveal threshold was very high at 36 dB on the right and 39 dB on the left. We also carried out previous 30-2 size 3 test objects and there was only some slight central depression, more in the right eye than the left eye. This has not been replicated in succeeding delgado. Next we did nerve fiber analysis. The OCT is absolutely normal with an average thickness of 96 microns in the right and 98 microns inthe left. There is no area that is thin. The macular region on OCT is completely dry and unremarkable. I think it is important with the variability in the vision from 20/200 to 20/20 on the same visit, that I think it is unlikely that there is any structural abnormality accounting for her visual decrease. I think there are nonphysiologic aspects to this examination. In talking to the patient, I understand that she is being seen by a therapist for some anger issues. I think it is important that the therapist be made aware of the variable visual problems. I know that they can help us with this. The patient's family may well want another opinion in [place]. Where this to be the case, we would readily refer them, either to [facility] or professor Pedro Velasquez at [facility]. Either of these to be excellent should that be desired, but I think at this point I would recommend first having consultation with and discussions further with the therapist for any recommendations. I have recommended that the patient not drive as long as she has this variable vision Once her vision remains stable at the 20/25 or 20/20 level, then I think that she can check with you Dr Merchantand you may well clear her to drive. I have not scheduled another time to see her, but I am readily available to see her if there are anychanges or concerns either on the part of the family or on the part of her treating physicians. This note was dictated with the patient and her mother present. They know that we will readily refer them if they so desire; but I think at this point, the first step is to be certain that there is not a psychological component to the visual decrease. Sincerely, Otoniel Coulter MD 12 53 PM - Otoniel Coulter MD gn Dictation ID: [id number] cc: Jean-Paul Merchant OD, [facility] [address], [address], [place] [address] Cindy Guerrero MD, [address] [phone] The Family documented in this encounter Plan of Treatment Upcoming Encounters Date Type Specialty Care Team Description 06/25/2022 Telemedicine Family Medicine Chandrika Harrison MD Arrived [address] [place] [phone] (Wo rk) Scheduled Orders Name Type Priority Associated Diagnoses Order S chedule VISUAL FIELD EXAM, Ophthalmology Routine Vision loss of right Ordered: 05/16/2014 EXTENDED eye documented as of this encounter Visit Diagnoses Diagnosis Vision loss of right eye - Primary Unqualified visual loss, one eye Headache 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 documented as of this encounter Eye Exam Visual Acuity (Snellen - Linear) Right eye Left eye Dist cc 20/200-1 20/200 Dist ph cc NI NI Near sc J16 J10 Near cc J5 J5 Pt can read her cell phone with normal font, but says she can't read the near chart. Tells me that the font on her phone is larger. When I looked at the font, it was normal size, approximately J3 or J5. Holds card at about 6-7 from face to read. Tonometry (Applanation, 11:57, ) Right eye Left eye Pressure 17 17 Pupils Dark React APD Right eye 7 4 None Left eye 7 4 None Visual Delgado Right eye Left eye Restrictions Partial outer superior temporal, Partial outer superior temporal, inferior temporal, superior nasal, infer ior temporal, superior nasal, inferior nasal deficiencies inferior vee al deficiencies Very constricted each eye. WS. Extraocular Movement Right eye Left eye Full Full Neuro/Psych Oriented x3: Yes Mood/Affect: Normal Dilation Both eyes: Paremyd @ 11:57 Amsler Right eye Left eye Missing most of center of grid. sees the edges & Missing lines & wavy lines corners. Color Right eye Left eye AOPIP 7/14 eccentric 8/14 For right eye has to look up to see the plates. Slit Lamp Exam Right eye Left eye Conjunctiva/Sclera White and quiet White and quiet Cornea Clear, all 5 layers. Clear, all 5 layers . Anterior Chamber Deep and quiet, no F/C Deep and quiet, n o F/C Iris Round and reactive, no TI Round and reac tive, no TI Lens Clear Clear Vitreous Normal Normal Fundus Exam Right eye Left eye Disc P/H. No heme or PPA. P/H. No heme or PPA . C/D Ratio 0.1 0.2 Macula Normal Normal Vessels Normal Normal Wearing Rx Sphere Cylinder [place] Right eye -1.00 +0.50 21 Left eye -1.50 +0.75 4 Type: SVL Manifest Refraction #1 (Auto) Sphere Cylinder [place] Dist [place] Right eye -0.75 +0.25 178 20/100-2+1 Left eye -0.50 Sphere 011 20/200 Manifest Refraction #2 Sphere Cylinder [place] Dist VA Right eye Left eye -2.00 20/100-2 Manifest Refraction #3 (Auto) Sphere Cylinder [place] Dist VA Right eye -0.50 +0.25 176 20/40-2 Left eye -0.75 +0.50 179 20/25 squinting Manifest Refraction #4 Sphere Cylinder [place] Dist VA Right eye -1.75 Sphere 20/25-2 Left eye -1.75 Sphere 20/25+2 Manifest Refraction Comments M3 = WET A/R Care Teams Equipment Maint Tech Relationship Specialty Start Date End Date Cindy Guerrero MD PCP - General 03/13/13 11/12/[address] [place] [phone] documented as of this encounter
--- OUTSIDE RECORDS SUMMARY | 2022-06-24 11:49 | XMS_ITS | Encounter Summary ---
:2000 Author Organization [facility] Address [address] [place] [address] Care Team Providers Name Role Phone Cindy Guerrero MD Primary Care Provider Reason for Visit Reason Onset Date Comments Appointment Related 04/25/2014 Encounter Details Date Type Department Care Team Description 04/25/2014 Telephone [facility] Prabhakar Moran, PAGeorgianaC Appointment Related Spine Program - [address] Spine Dresher [place], [place] [address] [place] [address] [place] [phone] (Wo rk) Social History Tobacco Use [...] this encounter Miscellaneous Notes Telephone Encounter - Iván Guzman - 04/25/2014 1329 EDT Left msg w/ d/t of Marlo's MRI at [facility] (04/30/14 at 1045). Requested confirmation callback. documented in this encounter Plan of Treatment Upcoming Encounters Date Type Specialty Care Team Description 06/25/2022 Telemedicine Family Medicine Chandrika Harrison MD Arrived [address] [place] [phone] (Wo rk) documented as of this encounter Visit Diagnoses Not on filedocumented in this encounter Care Teams Service Dismantler Relationship Specialty Start Date End Date Cindy Guerrero MD PCP - General 03/13/13 11/12/[address] [place] [phone] documented as of this encounter
--- OUTSIDE RECORDS SUMMARY | 2022-06-24 11:50 | XMS_ITS | Encounter Summary ---
:2000 Author Organization [facility] [place] [address] Care Team Providers Name Role Phone None Primary Care Provider Unavailable Reason for Visit Reason Comments Ultrasound Encounter Details Date Type Department Care Team Description 11/07/2017 Procedure visit Obstetrics and Marichuy Aparicio, Opioid dependence with opioid-induced disorder; Gynecology at [facility] Substance use disorder; [facility] epatitis C without hepatic coma; [facility] [address] Medication exposure during first trimest er of [place], [place] OBSTETRICS & [phone] GYNECOLOGY [phone] [place], [place] [address] Social History Tobacco Use Types Packs/Day Years Used Date Current Every Day Smoker Smokeless Tobacco: Former User Alcohol Use Standard Drinks/Week Comments No 0 (1 standard drink = 0.6 oz pure alcoho l) Sex Assigned at Date Recorded Not on file documented as of this encounter Last Filed Vital Signs Vital Sign Reading Time Taken Comments Blood Pressure 126/60 11/07/2017 10:06 AM EST Pulse - - Temperature - - Respiratory Rate - - Oxygen Saturation - - Inhaled Oxygen Concentration - - Weight 77 kg (169 lb 11.2 oz) 11/07/2017 10:06 AM EST Height - - Body Mass Index 25.72 10/13/2017 1:33 PM EST documented in this encounter Progress Notes Marichuy Aparicio MD - 11/07/2017 10:45 AM EST Maternal Medicine follow up visit Patient Active Problem List Diagnosis Code ??? Blurred vision, right eye H53.8 ??? 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 Substance use disorder F19.90 ??? Opioid dependence F11.20 GIA 04/10/18 at 18w0d week's gestation Chief complaint: Here for detailed morphology ultrasound Subjective: She denies bleeding, leaking of fluid, pain or regular contractions. She notes good movement. Has taken albuterol for a URI. Started phenergan for nausea. Is compliant with her methadone program. She would like aneuploidy screening. Objective: Appears well Most Recent Vitals: 11/07/17 1006 BP: 126/60 Abdomen soft, nontender Ultrasound Growth appropriate for gestational age EGA 17 6/7 weeks Amniotic fluid volume normal Placenta posterior Presentation breech Morphology No structural abnormality or marker for aneuploidy Assessment: Hepatitis C, opioid dependence on methadone, marijuana use No evidence today for a congenital syndrome or structural abnormality. I explained that ultrasound has limitations and cannot detect all structural abnormalities or syndromes. It is a poor screen for aneuploidy. Plan: Continue care She needs no further visits for diagnosis Recommend repeat STD screening at 36 weeks Marichuy Aparicio MD 11/07/2017 Cc: Dasha Cardoza CNM documented in this encounter Plan of Treatment Upcoming Encounters Date Type Specialty Care Team Description 10/19/2022 Office Visit Ophthalmology documented as of this encounter Visit Diagnoses Diagnosis Opioid dependence with opioid-induced di sorder Unspecified drug-induced mental disorder Substance use disorder Chronic hepatitis C without hepatic coma Medication exposure during first trimest er of Supervision of other high-risk documented in this encounter Care Teams Road Worker Relationship Specialty Start Date End Date None PCP - General 10/13/17 07/27/21 None documented as of this encounter
--- OUTSIDE RECORDS SUMMARY | 2022-06-24 11:50 | XMS_ITS | Encounter Summary ---
:2000 Author Organization [facility] Address [address] [place] [id number] Care Team Providers Name Role Phone None Primary Care Provider Unavailable Encounter Details Date Type Department Care Team Description 02/15/2018 Hospital Encounter Radiology at [facility] Dante Estrada Poor growth affecting management of mother in third trimester, single or unspecified fetus; [facility] G, CNM Abnormal ultrasound Drive [address] [place] [phone] [place], [place] [phone] Social History Tobacco Use Types Packs/Day Years Used Date Current Every Day Smoker 0.05 Smokeless Tobacco: Former User Alcohol Use Standard Drinks/Week Comments No 0 (1 standard drink = 0.6 oz pure alcoho l) Sex Assigned at Date Recorded Not on file documented as of this encounter Medications at Time of Discharge [...] every 6 mcg/actuation inhaler hours as needed. famotidine (PEPCID) 20 mg Take 1 tablet by 30 tablet 12 01/2706/03/2022 Tablet mouth 2 times daily. DICLEGIS 10-10 mg Tablet, 0 10/14/2017 03/17/2018 Delayed Release (E.C.) promethazine (PHENERGAN) take 1 tablet by 0 10/1803/17/2018 25 mg Tablet mouth every 4 hours if needed gabapentin (NEURONTIN) 800 take 1 tablet by 0 06/03/2022 mg TabletIndications: mouth twice a day Supervision of high risk in second trimester vitamin 27 & Take 1 tablet by 0 06/03/2022 [id number] 60 mg mouth daily. iron-1 mg TabletIndications: Supervision of high risk in second trimester methadone (DOLOPHINE) 10 Take 95 mg by mouth 0 06/03/2022 mg TabletIndications: daily. Supervision of high risk in second trimester documented as of this encounter Plan of Treatment Upcoming Encounters Date Type Specialty Care Team Description 10/19/2022 Office Visit Ophthalmology documented as of this encounter Procedures Procedure Name Priority Date/Time Associated Diagnosis Comme nts US OB FOLLOW UP Routine 02/15/2018 9:47 AM Poor growth R esults for this EDT affecting management procedu re are in of mother in third the resul ts trimester, single or section . unspecified fetu s Abnormal ultrasound documented in this encounter Results US OB Follow Up Evaluation (02/15/2018 9:47 AM EDT) Anatomical Region Laterality Modality Pelvis, Abdomen Ultrasound Specimen (Source) Anatomical Collection Method Collection Time Re ceived Time Location / / Volume Laterality 02/15/2018 9:15 AM EDT Impressions 02/15/2018 10:10 AM EDT 3rd Trimester Summary Single intrauterine with a ge stational age of 32w 2d based on Early Ultrasound ??(03/14). Composite age based on the current ultr asound alone is 30w 0d. Estimated weight corresponds to t he 20th percentile for 32w 2d. Amniotic fluid volume is appropriate fo r gestational age. Anatomical survey is limited due to the late gestational age. ?? No structural abnormalities vis ualized. Umbilical Artery dopplers were preforme d due to AC < 10%. Normal UA dopplers demonstrated. ?Ansley Hartley MD Electronically Signed Final Report ?? 10:09 am Narrative 02/15/2018 10:10 AM EDT OBSTETRICS REPORT ? (Signed Final 02/15/2018 10:09 am) PATIENT INFO: ID #: ? [id number] ?: ??[birth year] (17 yrs) Name: ? LILA LEWIS ? Visit Date: 02/15/2018 09:15 am PERFORMED BY: Performed By: ? Yin Leal RDMS Attending: ?Naeem WATTERS, Micheline Allen Referred By: ?DANTE ESTRADA Location: ? [place] SERVICE(S) PROVIDED: ??UOBFOL - Efw - Growth - Purcell - I [id number] ? [id number] ??UOBUA - Umbilical Artery Doppler - IM [id number] ?[id number] INDICATIONS: ??32 weeks gestation of ?Z3A.32 ??CONCERNING DOPPLER VALUE,CHECK ??GROWTH, ? DOPPLER STUDIES OB HISTORY: Blood ?A+ ?Height: ??5'8 ?Weight (lb): 175 ? BMI: ??26.61 Type: EVALUATION: Num Of Fetuses: ? 1 Heart ? 130 Rate(bpm): Cardiac Activity: ?? Observed, normal r hythm Presentation: ? Breech, manuel Placenta: ? Posterior P. Cord Insertion: ??Within Normal Limi ts Amniotic Fluid KIMBERLEY FV: ?Appropriate for gestati onal age KIMBERLEY Sum(cm) ? Lar gest Pocket(cm) 12.25 ? 3.63 RUQ(cm) ? RLQ(cm) ? LUQ(c m) ?LLQ(cm) 3.16 ?3.12 ?2 .34 ? 3.63 --------- BIOMETRY: --------- BPD: ?70.7 ??mm ? G.Age: ?? 28w 3d ? < 3 ??% OFD: ? 106.0 ??mm HC: ?285.0 ??mm ? G.Age: ?? 31w 2d ? 4 ??% AC: ?255.6 ??mm ? G.Age: ?? 29w 5d ? < 3 ??% FL: ? 58.3 ??mm ? G.Age: ?? 30w 3d ? 5 ??% HUM: ?53.4 ??mm ? G.Age: ?? 31w 1d ?29 ??% CER: ?41.5 ??mm ? G.Age: ?? 35w 4d ?88 ??% LV: ?4.0 ??mm CM: ?4.2 ??mm CI: ?66.7 ??% ? 70 - 86 FL/HC: ? 20.5 ??% ? 19.1 - 21.3 HC/AC: ? 1.12 ?0.96 - 1.17 FL/BPD: ?82.5 ??% ? 71 - 87 FL/AC: ? 22.8 ??% ? 20 - Est. FW: ?1497 ?? gm ? 3 lb 5 o z ?20 ??% GESTATIONAL AGE: U/S Today: ? 30w 0d ?GIA: ?? 04/26/18 Best: ?32w 2d ?? Det. By: ??Early ?GIA: ?? 04/10/18 ? Ultrasound ? (08/31/17) -------- ANATOMY: -------- Cranium: ? Limited v iews Cavum: ? Visualiz ed Ventricles: ?Within Nor mal Limits Choroid Plexus: ?Not visualiz ed due to late gestational a Cerebellum: ?Limited vi ews Posterior Fossa: ? Limited views Nuchal Fold: ? Not evaluat ed at this gestational age Face: ?Limited views Heart: ? Limited Views RVOT: ?Limited views LVOT: ?Limited views Diaphragm: ? Visualized Stomach: ? Visualize d Abdomen: ? Limited V iews Abdominal Wall: ?Not visualiz ed due to late gestational a Cord Vessels: ?3-vessels- WNL Kidneys: ? Visualize d Bladder: ? Visualize d Spine: ? Limited views Upper Extremities: ? Limited views Lower Extremities: ? Limited views DOPPLER - VESSELS: Umbilical Artery ??S/D ? %tile ? RI ?%tile ? PSV ?ADFV ?RDFV ?(cm/s) 3.34 ?81.0 ?0.7 ? 84.0 ?49.48 ?No ?No CERVIX UTERUS ADNEXA: Left Ovary Not visualized Right Ovary Not visualized Procedure Note Ansley Hartley MD - 02/15/2018Form atting of this note might be different from the original. OBSTETRICS REPORT (Signed Final 018 10:09 am) PATIENT INFO: ID #: [id number] : [birth year] (17 y rs) Name: LILA LEWIS Visit Date: 2017 09:15 am PERFORMED BY: Performed By: Yin Leal RDMS Attending: Ansley Hartley MD Referred By: DANTE ESTRADA Location: [place] SERVICE(S) PROVIDED: UOBFOL - Efw - Growth - Purcell - IMG [id number] UOBUA - Umbilical Artery Doppler - IMG3 [id number] INDICATIONS: 32 weeks gestation of Z3A.32 CONCERNING DOPPLER VALUE,CHECK GROWTH, ? DOPPLER STUDIES OB HISTORY: Blood A+ Height: 5'8 Weight (lb): 175 BMI: 26.61 Type: EVALUATION: Num Of Fetuses: 1 Heart 130 Rate(bpm): Cardiac Activity: Observed, normal rhyt hm Presentation: Breech, manuel Placenta: Posterior P. Cord Insertion: Within Normal Limits Amniotic Fluid KIMBERLEY FV: Appropriate for gestational age KIMBERLEY Sum(cm) Largest Pocket(cm) 12.25 3.63 RUQ(cm) RLQ(cm) LUQ(cm) LLQ(cm) 3.16 3.12 2.34 3.63 --------- BIOMETRY: --------- BPD: 70.7 mm G.Age: 28w 3d < 3 % OFD: 106.0 mm HC: 285.0 mm G.Age: 31w 2d 4 % AC: 255.6 mm G.Age: 29w 5d < 3 % FL: 58.3 mm G.Age: 30w 3d 5 % HUM: 53.4 mm G.Age: 31w 1d 29 % CER: 41.5 mm G.Age: 35w 4d 88 % LV: 4.0 mm CM: 4.2 mm CI: 66.7 % 70 - 86 FL/HC: 20.5 % 19.1 - 21.3 HC/AC: 1.12 0.96 - 1.17 FL/BPD: 82.5 % 71 - 87 FL/AC: 22.8 % 20 - 24 Est. FW: 1497 gm 3 lb 5 oz 20 % GESTATIONAL AGE: U/S Today: 30w 0d GIA: 04/26/18 Best: 32w 2d Det. By: Early GIA: Ultrasound (08/31/17) -------- ANATOMY: -------- Cranium: Limited views Cavum: Visualized Ventricles: Within Normal Limits Choroid Plexus: Not visualized due to l ate gestational a Cerebellum: Limited views Posterior Fossa: Limited views Nuchal Fold: Not evaluated at this gest ational age Face: Limited views Heart: Limited Views RVOT: Limited views LVOT: Limited views Diaphragm: Visualized Stomach: Visualized Abdomen: Limited Views Abdominal Wall: Not visualized due to l ate gestational a Cord Vessels: 3-vessels- WNL Kidneys: Visualized Bladder: Visualized Spine: Limited views Upper Extremities: Limited views Lower Extremities: Limited views DOPPLER - VESSELS: Umbilical Artery S/D %tile RI %tile PSV ADFV RDFV (cm/s) 3.34 81.0 0.7 84.0 49.48 No No CERVIX UTERUS ADNEXA: Left Ovary Not visualized Right Ovary Not visualized IMPRESSION 3rd Trimester Summary Single intrauterine with a ge stational age of 32w 2d based on Early Ultrasound (08/31). Composite age based on the current ultr asound alone is 30w 0d. Estimated weight corresponds to t he 20th percentile for 32w 2d. Amniotic fluid volume is appropriate fo r gestational age. Anatomical survey is limited due to the late gestational age. No structural abnormalities visual ized. Umbilical Artery dopplers were preforme d due to AC < 10%. Normal UA dopplers demonstrated. Ansley Hartley MD Electronically Signed Final Report 02/15 10:09 am Dante Marlena Abilio CNM IMG US OB ORDERABLES documented in this encounter Visit Diagnoses Diagnosis Poor growth affecting management o f mother in third trimester, single or unspecified fetus Abnormal ultrasound Abnormal findings on screening documented in this encounter Care Teams Gmat Tutor Relationship Specialty Start Date End Date None PCP - General 10/13/17 07/27/21 None documented as of this encounter
--- OUTSIDE RECORDS SUMMARY | 2022-06-24 11:50 | XMS_ITS | Encounter Summary ---
:2000 Author Organization [place] [address] Care Team Providers Name Role Phone Cindy Guerrero MD Primary Care Provider Encounter Details Date Type Department Care Team Description 01/18/2014 Abstract Ophthalmology at [facility] C Carlton Vo, [facility] [place] [phone] [facility] [phone] O[place]OLOGY [place], [place] [address] (Wo rk) Social History Tobacco Use Types Packs/Day Years Used Date Never Assessed Sex Assigned at Date Recorded Not on file documented as of this encounter Plan of Treatment Upcoming Encounters Date Type Specialty Care Team Description 10/19/2022 Office Visit Ophthalmology documented as of this encounter Visit Diagnoses Not on filedocumented in this encounter Care Teams Armature Repairer Relationship Specialty Start Date End Date Cindy Gurerero MD PCP - General 10/20/10 10/12/17 [facility] [place] [address] documented as of this encounter
--- OUTSIDE RECORDS SUMMARY | 2022-06-24 11:50 | XMS_ITS | Encounter Summary ---
:2000 Author Organization [facility] [place] [address] Care Team Providers Name Role Phone None Primary Care Provider Unavailable Reason for Visit Reason Comments Ultrasound Routine Visit Encounter Details Date Type Department Care Team Description 03/02/2018 Office Visit Obstetrics and Ansley López IUGR (in [place]ine [place]cology [place] [facility] [place] Sukumar growth restriction) [facility] [address] mother, [place], [place] OBSTETRICS & trimester, fetu s 1 [phone] GYNECOLOGY [phone] [place], [place] [address] (Wo rk) Social History Tobacco Use Types Packs/Day Years Used Date Current Every Day Smoker 0.05 Smokeless Tobacco: Former User Alcohol Use Standard Drinks/Week Comments No 0 (1 standard drink = 0.6 oz pure alcoho l) Sex Assigned at Date Recorded Not on file documented as of this encounter Last Filed Vital Signs Vital Sign Reading Time Taken Comments Blood Pressure 132/56 03/02/2018 1:35 PM EDT Pulse - - Temperature - - Respiratory Rate - - Oxygen Saturation - - Inhaled Oxygen Concentration - - Weight 81.7 kg (180 lb 3.2 oz) 03/02/2018 1:35 PM EDT Height - - Body Mass Index 27.31 12/23/2017 1:09 PM EST documented in this encounter Progress Notes Ansley López MD - 03/02/2018 1:45 PM EDT Gestational age: 34w3d, returns for follow-up ultrasound and limited MFM consult Patient Active Problem List Diagnosis Date Noted ??? Substance use disorder 11/07/2017 ??? Opioid dependence 11/07/2017 ??? Blurred vision, right eye 02/03/2014 ??? 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 Assessment and Recommendations: 18 y.o. year old female at 34w3d weeks gestation with polysubstance abuse, bipolar disorder andsmall for gestational age fetus We reviewed the ultrasound results. The EFW is 12%ile and AC < 3%ile. The fluid and UA SD are normal. There has been interval growth since the last ultrasound. I recommend continued NST 2x/ week and weekly ultrasound fluid check. I recommend a f/u ultrasound for growth assessment here in 2 weeks. She became quite upset during our conversation and was verbally aggressive with this provider and her family supports. I appreciate the opportunity to be involved in this patients care, and am available if further questions should arise. ANSLEY LÓPEZ MD 03/02/2018 Cc: Ansley López, with copy of ultrasound report documented in this encounter Plan of Treatment Upcoming Encounters Date Type Specialty Care Team Description 10/19/2022 Office Visit Ophthalmology documented as of this encounter Results US OB Follow Up Evaluation (03/13/2018 9:14 AM EDT) Anatomical Region Laterality Modality Pelvis, Abdomen Ultrasound Specimen (Source) Anatomical Collection Method Collection Time Re ceived Time Location / / Volume Laterality 03/13/2018 9:09 AM EDT Impressions 03/13/2018 9:22 AM EDT 3rd Trimester Summary Single intrauterine with a ge stational age of 36w 0d based on Early Ultrasound ??(03/14) Composite age based on the current ultr asound alone is 32w 2d. Estimated weight corresponds to t he < 5th percentile for 36w 0d. Current growth parameters are NOT consi stent with prior dating indicating abnormal growth. IUGR fetus. Amniotic fluid volume is Normal Anatomical survey is limited due to the late gestational age. Reassuring biophysical profile 07/05 Normal UA Doppler, without AEDF or REDF . ? E Tomime Lucas MD Electronically Signed Final Report ?? 09:21 am Narrative 03/13/2018 9:22 AM EDT OBSTETRICS REPORT ? (Signed Final 03/13/2018 09:21 am) PATIENT INFO: ID #: ? [id number] ?: ??[birth year] (18 yrs) Name: ? LILA LEWIS ? Visit Date: 03/13/2018 09:09 am PERFORMED BY: Performed By: ? Anneliese Adams RDMS Attending: ?Lance WATTERS, Latonya ? ?Mariann Referred By: ?ANSLEY LÓPEZ Location: ? [place] SERVICE(S) PROVIDED: ??UOBFOL - Efw - Growth - Purcell - I [id number] ? [id number] ??UOBUA - Umbilical Artery Doppler - IM [id number] ?[id number] ??UBPP - Biophysical Profile (without N ST) - [id number] ? [id number] INDICATIONS: ??36 weeks gestation of ?Z3A.36 ??MFM to read, growth, fluid, UA SD OB HISTORY: Blood ?A+ ?Height: ??5'8 ?Weight (lb): 180 ? BMI: ??27.37 Type: : ?1 EVALUATION: Num Of Fetuses: ? 1 Heart ? 129 Rate(bpm): Cardiac Activity: ?? Observed, normal r hythm Presentation: ? Breech, manuel Placenta: ? Posterior P. Cord Insertion: ??Not able to evalua te Amniotic Fluid KIMBERLEY FV: ?Normal KIMBERLEY Sum(cm) ? Lar gest Pocket(cm) 12.95 ? 3.65 RUQ(cm) ? RLQ(cm) ? LUQ(c m) ?LLQ(cm) 3.65 ?3.6 ? 3 .22 ? 2.48 BIOPHYSICAL EVALUATION: Amniotic F.V: ?? Within normal limits ? F. Tone: ??Observed F. Movement: ?Observed ? Score: ??07/05 F. Breathing: ?? Observed --------- BIOMETRY: --------- BPD: ?76.8 ??mm ? G.Age: ?? 30w 6d ? < 3 ??% OFD: ? 113.1 ??mm HC: ?303.6 ??mm ? G.Age: ?? 33w 5d ? < 3 ??% AC: ?265.9 ??mm ? G.Age: ?? 30w 5d ? < 3 ??% FL: ? 65.2 ??mm ? G.Age: ?? 33w 4d ? 4 ??% HUM: ?58.7 ??mm ? G.Age: ?? 34w 0d ?29 ??% LV: ?6.3 ??mm CI: ?67.9 ??% ? 70 - 86 FL/HC: ? 21.5 ??% ? 20.1 - 22.1 HC/AC: ? 1.14 ?0.93 - 1.11 FL/BPD: ?84.9 ??% ? 71 - 87 FL/AC: ? 24.5 ??% ? 20 - 24 Est. FW: ?1867 ?? gm ? 4 lb 2 o z ? < 5 ??% GESTATIONAL AGE: U/S Today: ? 32w 2d ?GIA: ?? 05/06/18 Best: ?36w 0d ?? Det. By: ??Early ?GIA: ?? 04/10/18 ? Ultrasound ? (08/31/17) -------- ANATOMY: -------- Cranium: ? Visualize d Cavum: ? Visualiz ed Ventricles: ?Limited vi ews Choroid Plexus: ?Not visualiz ed at this gestational age Cerebellum: ?Not visual ized at this gestational age Posterior Fossa: ? Not visualize d due to late gestational a Nuchal Fold: ? Not evaluat ed at this gestational age Face: ?Limited views Heart: ? Limited due to late gestational age RVOT: ?Limited views due to late gestation LVOT: ?Limited views due to late gestation Diaphragm: ? Visualized Stomach: ? Visualize d Abdomen: ? Limited V iews Abdominal Wall: ?Limited view s - late gestational age Cord Vessels: ?3-vessels- WNL Kidneys: ? Visualize d Bladder: ? Visualize d Spine: ? Limited views Upper Extremities: ? Limited views Lower Extremities: ? Limited views DOPPLER - VESSELS: Umbilical Artery ??S/D ? %tile ? RI ?%tile ? PI ?%tile ? PSV ?ADFV ?RDFV ?(cm/s) ??2.8 ?69.0 ??0.64 ?75.0 ?1.0 ? 79.0 ?50.39 ?No ?No Comment: ? Normal UA doppler. CERVIX UTERUS ADNEXA: Left Ovary Not visualized Right Ovary Not visualized Procedure Note Latonya Lucas MD - 03/13/2018For matting of this note might be different from the original. OBSTETRICS REPORT (Signed Final 018 09:21 am) PATIENT INFO: ID #: [id number] : [birth year] (18 y rs) Name: LILA LEWIS Visit Date: 2017 09:09 am PERFORMED BY: Performed By: Anneliese Adams RDMS Attending: Latonya Lucas MD Referred By: ANSLEY LÓPEZ Location: [place] SERVICE(S) PROVIDED: UOBFOL - Efw - Growth - Purcell - IMG [id number] UOBUA - Umbilical Artery Doppler - [id number] UBPP - Biophysical Profile (without NST ) - [id number] INDICATIONS: 36 weeks gestation of Z3A.36 MFM to read, growth, fluid, UA SD OB HISTORY: Blood A+ Height: 5'8 Weight (lb): 180 BMI: 27.37 Type: : 1 EVALUATION: Num Of Fetuses: 1 Heart 129 Rate(bpm): Cardiac Activity: Observed, normal rhyt hm Presentation: Breech, manuel Placenta: Posterior P. Cord Insertion: Not able to evaluate Amniotic Fluid KIMBERLEY FV: Normal KIMBERLEY Sum(cm) Largest Pocket(cm) 12.95 3.65 RUQ(cm) RLQ(cm) LUQ(cm) LLQ(cm) 3.65 3.6 3.22 2.48 BIOPHYSICAL EVALUATION: Amniotic F.V: Within normal limits F. T one: Observed F. Movement: Observed Score: 8/8 F. Breathing: Observed --------- BIOMETRY: --------- BPD: 76.8 mm G.Age: 30w 6d < 3 % OFD: 113.1 mm HC: 303.6 mm G.Age: 33w 5d < 3 % AC: 265.9 mm G.Age: 30w 5d < 3 % FL: 65.2 mm G.Age: 33w 4d 4 % HUM: 58.7 mm G.Age: 34w 0d 29 % LV: 6.3 mm CI: 67.9 % 70 - 86 FL/HC: 21.5 % 20.1 - 22.1 HC/AC: 1.14 0.93 - 1.11 FL/BPD: 84.9 % 71 - 87 FL/AC: 24.5 % 20 - 24 Est. FW: 1867 gm 4 lb 2 oz < 5 % GESTATIONAL AGE: U/S Today: 32w 2d GIA: 05/06/18 Best: 36w 0d Det. By: Early GIA: Ultrasound (08/31/17) -------- ANATOMY: -------- Cranium: Visualized Cavum: Visualized Ventricles: Limited views Choroid Plexus: Not visualized at this gestational age Cerebellum: Not visualized at this gest ational age Posterior Fossa: Not visualized due to late gestational a Nuchal Fold: Not evaluated at this gest ational age Face: Limited views Heart: Limited due to late gestational age RVOT: Limited views due to late gestati on LVOT: Limited views due to late gestati on Diaphragm: Visualized Stomach: Visualized Abdomen: Limited Views Abdominal Wall: Limited views - late ge stational age Cord Vessels: 3-vessels- WNL Kidneys: Visualized Bladder: Visualized Spine: Limited views Upper Extremities: Limited views Lower Extremities: Limited views DOPPLER - VESSELS: Umbilical Artery S/D %tile RI %tile PI %tile PSV ADFV RD FV (cm/s) 2.8 69.0 0.64 75.0 1.0 79.0 50.39 No No Comment: Normal UA doppler. CERVIX UTERUS ADNEXA: Left Ovary Not visualized Right Ovary Not visualized IMPRESSION 3rd Trimester Summary Single intrauterine with a ge stational age of 36w 0d based on Early Ultrasound (08/31) Composite age based on the current ultr asound alone is 32w 2d. Estimated weight corresponds to t he < 5th percentile for 36w 0d. Current growth parameters are NOT consi stent with prior dating indicating abnormal growth. IUGR fetus. Amniotic fluid volume is Normal Anatomical survey is limited due to the late gestational age. Reassuring biophysical profile 07/05 Normal UA Doppler, without AEDF or REDF . Latonya Lucas MD Electronically Signed Final Report 03/13 09:21 am Ansley López MD IMG US OB ORDERABLES documented in this encounter Visit Diagnoses Diagnosis IUGR (intrauterine growth restriction) a ffecting care of mother, third trimester, fetus 1 IUGR (intrauterine growth restriction) a ffecting care of mother, third trimester, fetus 1 documented in this encounter Care Teams General House Worker Relationship Specialty Start Date End Date None PCP - General 10/13/17 07/27/21 None documented as of this encounter
--- OUTSIDE RECORDS SUMMARY | 2022-06-24 11:50 | XMS_ITS | Encounter Summary ---
:2000 Author Organization [place] [address] Care Team Providers Name Role Phone None Primary Care Provider Unavailable Reason for Visit Auth/Cert Specialty Diagnoses / Procedures Referred By Contact Refer red To Contact Diagnoses malpresentation Procedures PRO DELIVERY ONLY @ DELIVERY (WRVU 16.13) Referral ID Status Reason Start Date Expiration Date Visits Requ ested Visits Authorized [id number] 1 1 Encounter Details Date Type Department Care Team Description 03/13/2018 Hospital Encounter [place] [facility] Ansley López IUGR (intrauterine [facility] MD Sukumar growth restriction) [facility] mother, third [phone] OBSTETRICS & trimester, fetus GYNECOLOGY [place] [id number] Social History Tobacco Use Types Packs/Day Years [...] Take 1 tablet by 30 tablet 12 03/11/201706/03/2022 Tablet mouth 2 times daily. DICLEGIS 10-10 mg Tablet, 0 10/14/2017 03/17/2018 Delayed Release (E.C.) promethazine (PHENERGAN) take 1 tablet by 0 10/1803/17/2018 25 mg Tablet mouth every 4 hours if needed gabapentin (NEURONTIN) 800 take 1 tablet by 0 06/03/2022 mg TabletIndications: mouth twice a day Supervision of high risk in second trimester vitamin 27 & Take 1 tablet by 0 06/03/2022 [id number] 60 mg mouth daily. iron-1 mg TabletIndications: [...] Procedure Name Priority Date/Time Associated Diagnosis Comme [facility] US OB FOLLOW UP Routine 03/13/2018 9:14 AM IUGR (intrauterine Results for this EDT growth restriction) procedur e are in affecting care of the result s mother, third section. trimester, fetus 1 documented in this encounter Results US OB [...] Doppler, without AEDF or REDF . ? Latonya Lucas MD Electronically Signed Final Report ?? 09:21 am Narrative 03/13/2018 9:22 AM EDT OBSTETRICS REPORT ? (Signed Final 03/13/2018 09:21 am) PATIENT INFO: ID #: ? [id number] ?: ??[birth year] (18 yrs) Name: ? LILA LEWIS ? Visit Date: 03/13/2018 09:09 am PERFORMED BY: Performed By: ? Anneliese Adams RDMS Attending: ?Latonya Lucas MD ? ?Mariann Referred By: ?ANSLEY LÓPEZ Location: ? [place] SERVICE(S) PROVIDED: ??UOBFOL - Efw - Growth - Purcell - I [id number] ? [id number] ??UOBUA - Umbilical Artery Doppler - IM [id number] ?[id number] ??UBPP - Biophysical Profile (without N ST) - [id number] ? [id number] INDICATIONS: ??36 weeks gestation of ?Z3A.36 ??MFM [...] Tone: ??Observed F. Movement: ?Observed ? Score: ??8/8 F. Breathing: ?? Observed --------- BIOMETRY: --------- [...] U/S Today: ? 32w 2d ?GIA: ?? 06/09/18 Best: ?36w 0d ?? Det. By: ??Early [...] 018 09:21 am) PATIENT INFO: ID #: [id number] : [birth year] (18 y rs) Name: LILA LEWIS Visit Date: 2017 09:09 am PERFORMED BY: Performed By: Anneliese Adams RDMS Attending: Latonya Lucas MD Referred By: ANSLEY LÓPEZ Location: [place] SERVICE(S) PROVIDED: UOBFOL - Efw - Growth - Purcell - IMG [id number] UOBUA - Umbilical Artery Doppler - [id number] UBPP - Biophysical Profile (without NST ) - [id number] INDICATIONS: 36 weeks gestation of Z3A.36 MFM [...] T one: Observed F. Movement: Observed Score: 07/05 F. Breathing: Observed --------- BIOMETRY: --------- BPD: [...] 1 documented in this encounter Care Teams Server Cashier Relationship Specialty Start Date End Date None PCP - General 10/13/17 07/27/21 None documented as of this encounter
--- OUTSIDE RECORDS SUMMARY | 2022-06-24 11:50 | XMS_ITS | Encounter Summary ---
:2000 Author Organization [facility] [place] [address] Care Team Providers Name Role Phone None Primary Care Provider Unavailable Reason for Visit Reason Comments Ultrasound Auth/Cert Specialty Diagnoses / Procedures Referred By Contact Refer red To Contact Diagnoses malpresentation Procedures PRO DELIVERY ONLY @ DELIVERY (WRVU 16.13) Referral ID Status Reason Start Date Expiration Date Visits Requ ested Visits Authorized [id number] 1 1 Encounter Details Date Type Department Care Team Description 03/13/2018 Office Visit Obstetrics and Lance E Maternal care for restricted growth, antepartum; Gynecology at [facility] MD Mariann Breech presentation, single or unspecifi ed fetus [facility] [address] [place] OBSTETRICS & [phone] GYNECOLOGY [phone] [place], [place] [address] Social History Tobacco Use Types Packs/Day Years Used Date Current Every Day Smoker 0.05 Smokeless Tobacco: Former User Alcohol Use Standard Drinks/Week Comments No 0 (1 standard drink = 0.6 oz pure alcoho l) Sex Assigned at Date Recorded Not on file documented as of this encounter Last Filed Vital Signs Vital Sign Reading Time Taken Comments Blood Pressure 127/60 03/13/2018 9:48 AM EDT Pulse - - Temperature - - Respiratory Rate - - Oxygen Saturation - - Inhaled Oxygen Concentration - - Weight 82.1 kg (181 lb) 03/13/2018 9:48 AM EDT Height - - Body Mass Index 27.43 12/23/2017 1:09 PM EST documented in this encounter Progress Notes Pschirrer, E Mariann, MD - 03/13/2018 9:15 AM EDT Gestational age: 36w0d, returns for follow-up ultrasound and limited MFM consult. Patient Active Problem List Diagnosis Date Noted ??? Substance use disorder 11/07/2017 ??? Opioid dependence 11/07/2017 ??? Blurred vision, right eye 02/03/2014 ??? 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 Minimal growth. Amniotic fluid volume normal Presentation breech Placenta anterior anatomy appears within normal limits. Normal UA Doppler. Reassuring biophysical profile. Physical Exam BP 127/60 Wt 82.1 kg (181 lb) BMI 27.43 kg/m2 General: alert, well appearing, in no apparent distress, oriented to person, place and time HEENT: normocephalic, atraumatic Abdomen: Gravid, soft, nontender Extremities: no edema Neurologic:alert, oriented, normal speech, no focal findings or movement disorder noted Psychiatric: Affect is Appropriate. Assessment and Recommendations: 18 y.o. year old female at 36w0d weeks gestation with profound growth restriction and essentially absent growth since the last evaluation. Malpresentation, and not a candidate for external cephalic version due to growth restriction. Due to absent growth, I recommend delivery. Due to an estimated f etal weight of 1867g, I recommend delivery at [facility]. She is steroid complete, and does not need rescue steroids at this gestational age. I reviewed pre-op instructions and gave the patient Hibiclens to shower with. She will take her methadone dose (95mg) from [facility] prior to coming in tomorrow morning. I appreciate the opportunity to be involved in this patients care, and am available if further questions should arise. Latonya CASTRO MD 03/13/2018 Cc: Dasha Cardoza, with copy of ultrasound report documented in this encounter Plan of Treatment Upcoming Encounters Date Type Specialty Care Team Description 10/19/2022 Office Visit Ophthalmology documented as of this encounter Visit Diagnoses Diagnosis Maternal care for restricted growt h, antepartum Breech presentation, single or unspecifi ed fetus documented in this encounter Care Teams Quotation Clerk Relationship Specialty Start Date End Date None PCP - General 10/13/17 07/27/21 None documented as of this encounter
--- OUTSIDE RECORDS SUMMARY | 2022-06-24 11:50 | XMS_ITS ---
:2000 Author Care Team Providers Name Role Phone Benton, Shweta Primary Care Provider Unavailable Allergies None recorded. Medications Name Status Start Date Stop Date ? ? buprenorphine 2 mg-naloxone 0.5 mg sublingual tablet Active ? Not available Place 2 tablets every day by sublingual route for 7 days. buprenorphine 8 mg-naloxone 2 mg sublingual tablet Active ? Not available Place 2 tablets every day by sublingual route for 7 days. clonazepam 1 mg tablet Active ? Not avail able Take 1 tablet as needed by oral route. gabapentin 600 mg tablet Active ? Not flaquita ilable Take 1 tablet 3 times a day by oral route. methylphenidate 20 mg tablet Active ? Not available Take 3 tablets every day by oral route. olanzapine 20 mg tablet Active ? Not avai lable Take 1 tablet every day by oral route. Problems Name Status Onset Date Source ? Cholecystectomy Unknown 05/04/2022 ? Bipolar Disorder Active 05/10/2022 ? Attention Deficit Hyperactivity Disorder Active 022 ? Panic Disorder Active 05/10/2022 ? Procedures None recorded. Results Lab Results Date Name Specimen Result Interpretation Description Value Range Status Address ? 05/17/2022 Drug UR ? Amphetamines negative 1,000 Kacey l [place] Screen, NG/mL NG/mL Health: [address], [place] ? ? UR ? Benzodiazapines negative 200 Final [place] NG/mL NG/mL Health: [address], [place] ? ? UR ? Buprenorphine positive 5 Final [place] NG/mL NG/mL Health: [address], [place] ? ? UR ABNORM Cocaine positive 150 Final [place] AL Metabolite NG/mL NG/mL Health : [address], [place] ? ? UR ? Opiates negative 300 Final [place] NG/mL NG/mL Health: [address], [place] ? ? UR ? Oxycodone negative 300 Final Melanie da NG/mL NG/mL Health: [address], [place] ? ? UR ABNORM Fentanyl positive 2 Final Savid a AL NG/mL NG/mL Health: [address], [place] ? ? UR ? Ethyl Alcohol negative 10 Final [place] mg/dL mg/dL Health: [address], [place] ? ? UR ? Methadone negative 300 Final Melanie da Metabolite NG/mL NG/mL Health : [address], [place] ? ? UR ABNORM Cannabinoids positive 50 Final S avida AL (THC) NG/mL NG/mL Health: [address], [place] ? ? UR ? Urine 229.4 mg/dL >20 Final Savid a Creatinine mg/dL Health : [address], [place] ? ? UR ? Urine pH 7.80 4.5-9. Final [place] 0 Health: [address], [place] ? ? UR ? Specific 1.015 1.003- Final [place] Magdalena 1.035 Health: [address], [place] 05/17/2022 Cocaine UR ? Admitted ntp ? Final Sa lucretia Metabolite Cocaine Use H ealth: [address], [place], [place]rine [place] 05/17/2022 Opiates, UR ? 6-Acetylmorphin negative 10 Final [place] Quantitati e NG/mL NG/mL Health : [address], [address], [place] ? ? UR ? Codeine negative 50 Final [place] NG/mL NG/mL Health: [address], [place] ? ? UR ? Hydrocodone negative 50 Final Sa lucretia NG/mL NG/mL Health: [address], [place] ? ? UR ? Hydromorphone negative 50 Final [place] NG/mL NG/mL Health: [address], [place] ? ? UR ? Morphine negative 50 Final Savid a NG/mL NG/mL Health: [address], [place] ? ? UR ? Norhydrocodone negative 100 Final [place] NG/mL NG/mL Health: [address], [place] ? ? UR ? Fentanyl negative 20 Final Sav[place] a NG/mL NG/mL Health: [address], [place] ? ? UR High Norfentanyl 222.6 NG/mL 20 Final [place] NG/mL Health: [address], [place] ? ? UR ? Tramadol negative 100 Final Savid a NG/mL NG/mL Health: [address], [place] ? ? UR ? Legend abbreviations ? Final Sa lucretia Health: [address], [place] ? ? UR ? Billing Only billing only ? Kacey morales [place] ([id number]) Health: 1 [address] [place] [place] 05/17/2022 Urine ? Hcg negative ? ? V t_medical Test, _ Urine [facility]: [facility] [facility] 05/10/2022 Drug UR ? Amphetamines negative 1,000 Kacey l [place] Screen, NG/mL NG/mL Health: [address], [place] ? ? UR ? Benzodiazapines negative 200 Final [place] NG/mL NG/mL Health: [address], [place] ? ? UR ? Buprenorphine positive 5 Final [place] NG/mL NG/mL Health: [address], [place] ? ? UR ABNORM Cocaine positive 150 Final [place] AL Metabolite NG/mL NG/mL Health : [address], [place] ? ? UR ? Opiates negative 300 Final [place] NG/mL NG/mL Health: [address], [place] ? ? UR ? Oxycodone negative 300 Final Melanie da NG/mL NG/mL Health: [address], [place] ? ? UR ? Fentanyl negative 2 Final Savid a NG/mL NG/mL Health: [address], [place] ? ? UR ? Ethyl Alcohol negative 10 Final [place] mg/dL mg/dL Health: [address], [place] ? ? UR ABNORM Methadone positive 300 Final Melanie da AL Metabolite NG/mL NG/mL Health : [address], [place] ? ? UR ABNORM Cannabinoids positive 50 Final S avida AL (THC) NG/mL NG/mL Health: [address], [place] ? ? UR ? Urine 145.9 mg/dL >20 Final Savid a Creatinine mg/dL Health : [address], [place] ? ? UR ? Urine pH 7.40 4.5-9. Final [place] 0 Health: [address], [place] ? ? UR ? Specific 1.016 1.003- Final [place] Magdalena 1.035 Health: [address], [place] 05/10/2022 Cocaine UR High Benzoylecgonine olr(>2000) 100 Final [place] Metabolite NG/mL NG/mL Health : [address], [place], Urine [place] ? ? UR ? Legend abbreviations ? Final Sa lucretia Health: [address], [place] ? ? UR ? Billing Only billing only ? Kacey morales [place] ([id number]) Health: [address], [place] 05/10/2022 Methadone, UR High Eddp 1980.0 NG/mL 100 Fin al [place] Quantitati NG/mL Health : [address], [address], [place] ? ? UR High Methadone 336.0 NG/mL 250 Final S avida NG/mL Health: [address], [place] ? ? UR ? Legend abbreviations ? Final Sa lucretia Health: [address], [place] Past Encounters 05/17/2022 Opioid Dependence [place], PRIVATE DUTY NURSE: [address] [place] [phone], Ph. 05/10/2022 Opioid Dependence [place], PRIVATE DUTY NURSE: [address] [place] [phone], Ph. Social History None recorded. Vaccine List None recorded. Plan of Care Reminders Provider Appointments None recorded. ? ? Lab None recorded. ? ? Referral None recorded. ? ? Procedures None recorded. ? ? Surgeries None recorded. ? ? Imaging None recorded. ? ? Vitals Weight Blood Pressure 234 lbs 122/82 mm[Hg]
--- OUTSIDE RECORDS SUMMARY | 2022-06-24 11:50 | XMS_ITS | Encounter Summary ---
:2000 Author Organization [facility] [place] [address] Care Team Providers Name Role Phone None Primary Care Provider Unavailable Reason for Visit Reason Comments GI Problem Consultation (Routine) - Specialty Diagnoses / Procedures Referred By Contact Refer red To Contact Gastroenterology Diagnoses Diagnosed hep C positive March 2017. RNA titer 04/01/17 was 2383. Pt now , due 04/10/18. [facility] consult recommends ongoing involvement of/with gastroenterology. RNA titer on 10/17/17 was less than 15. Please follow. Dasha Cardoza, JR [facility] Gastro 4l Procedures Consult [address] [place] [id number] Referral ID Status Reason Start Date Expiration Date Visits V isits Requested Authorized [id number] Consult Only 11/11/2017 11/11/2018 1 1 Encounter Details Date Type Department Care Team Description 12/23/2017 Office Visit Gastroenterology at [facility] [place] Jane Denny, Chronic hepatitis C [facility] Enoc maldonado [place] hepatic [place] [phone] [facility] [phone] [place] [address] Social History Tobacco Use Types Packs/Day Years Used Date Current Every Day Smoker 0.05 Smokeless Tobacco: Former User Alcohol Use Standard Drinks/Week Comments No 0 (1 standard drink = 0.6 oz pure alcoho l) Sex Assigned at Date Recorded Not on file documented as of this encounter Last Filed Vital Signs Vital Sign Reading Time Taken Comments Blood Pressure 100/55 12/23/2017 1:09 PM EST Pulse 85 12/23/2017 1:09 PM EST Temperature - - Respiratory Rate - - Oxygen Saturation - - Inhaled Oxygen Concentration - - Weight 79.2 kg (174 lb 9.6 oz) 12/23/2017 1:09 PM EST p t stated Height 173 cm (5' 8.11) 12/23/2017 1:09 PM EST Body Mass Index 26.46 12/23/2017 1:09 PM EST documented in this encounter Progress Notes Jane Denny MD - 12/23/2017 1:00 PM EST HEPATOLOGY CONSULTATION Lila Lewis 2000 CUTTING MACHINE OPERATOR: Jane Denny MD ([id number]) PCP: None Requesting Provider: REASON FOR CONSULTATION Hepatitis C HISTORY OF PRESENT ILLNESS Lila Lewis is a 17 y.o. year old reports testing positive for antibody and virus in [facility] in summer. She believes she contracted hepatitis C from her this past summer. Noepisode of jaundice. She reports her tests were between 3-500, but have been coming down. She does not know what genotype she has. She reports a history of IV drug use, but reports never reusing or sharing needles. She does have professional done tattoos. No IV drugs in the last 8 months. She reports diffuse pruritis for the past three week with a new rash. ROS: Constitutional: no weight loss HEENT: no visual changes, no URI symptoms Cardio: no chest pain Resp: no cough, no SOB, no MINA or orthopnea Hem/Lymph: no new lumps or bumps on body GI: see HPI : no dysuria Musculoskeletal: no new joint pains Neuro: no new numbness, weakness in extremities PAST MEDICAL/SURGICAL HISTORY 1. Chronic hip and back pain MEDICATIONS Outpatient Prescriptions Marked as Taking for the 12/23/17 encounter (Office Visit) with Jane Denny MD Medication Sig Dispense Refill ? ? vitamin 27 & [id number] 60 mg iron-1 mg Tablet Take 1 tablet by mouth daily. ??? methadone (DOLOPHINE) 10 mg Tablet Take 95 mg by mouth daily. ??? albuterol-ipratropium (COMBIVENT) 18-103 mcg/actuation inhaler Inhale 2 puffs into the lungs every 6 hours as needed. ALLERGIES Allergies Allergen Reactions ??? Latex Hives ??? Adhesive Tape Other (See Comments) blisters SOCIAL HISTORY Social History Social History ??? Marital status: Single Spouse name: N/A ??? Number of children: N/A ??? Years of education: N/A Occupational History ??? Not on file. Social History Main Topics ??? Smoking status: Current Every Day Smoker Packs/day: 0.05 ??? Smokeless tobacco: Former User ??? Alcohol use No ??? Drug use: Yes Special: Opioids (heroin, pills), Marijuana Comment: FRANCHESCA; treatment with methadone; daily MJ ??? Sexual activity: Yes Partners: Male Other Topics Concern ??? Not on file Social History Narrative FAMILY HISTORY Family History Problem Relation Age of Onset [...] ??? Heart Disease Other ??? Cancer Other Vitals: 12/23/17 1309 BP: 100/55 Pulse: 85 Weight: 79.2 kg (174 lb 9.6 oz) Height: 173 cm (5' 8.11) PHYSICAL EXAM General: Appears stated age, NAD Eyes: Normal sclera, normal conjunctiva ENT: Moist mucus membranes, normal posterior pharynx Lymph: No lymphadenopathy of the head or neck Heart: Heart sounds I and II were audible, no added sounds, no murmurs Lungs: Clear to ausculation bilaterally Abdomen: Soft, non-tender, no organomegaly, normal active bowel sounds Extremities: No peripheral edema Skin: No jaundice, no spider nevi, no palmar erythema Neuro: No asterixis, grossly intact Mental: Appropriate affect, oriented in person, place, and time RESULTS Results for LILA LEWIS ( ) as of 12/23/2017 13:09 Ref. Range 10/13/2017 14:46 HCV Viral Load Latest Units: IU/mL <15 ASSESSMENT/PLAN #1 Hepatitis C Per the outside notes hepatitis C antibody was positive. Will work [facility] testing for hepatitis C. Will repeat viral load today, if still negative she likely cleared the virus. If viral load is positive would recommend therapy post-, ideally when she is done breast feeding. Reviewed potential sources of transmission as her partner also has hepatitis C. Will up date liver enzymes today. #2 Diffuse pruritus She is in late second trimester. She reports pruritus diffusely for the last 3 weeks. In addition toalkaline phosphatase, AST, ALT, indirect and direct bilirubin, I will also obtain a GGT to assess for intrahepatic cholestasis of . I will follow up with her on the phone after her laboratory tests are reviewed. Jane Denny MD Hepatology and Gastroenterology [facility] Dr. Jara MA V: [phone] Copy: None None documented in this encounter Plan of Treatment Upcoming Encounters Date Type Specialty Care Team Description 10/19/2022 Office Visit Ophthalmology documented as of this encounter Procedures Procedure Name Priority Date/Time Associated Diagnosis Comme nts HEPATITIS C RNA, Routine 12/23/2017 2:03 PM Chronic hepatitis C Results for this QUANTITATIVE, PCR EST without hepatic coma pr ocedure are in the results section. GAMMA GT Routine 12/23/2017 2:03 PM Chronic hepatitis C Re sults for this EST without hepatic coma procedu re are in the results section. HEPATIC FUNCTION Routine 12/23/2017 2:03 PM Chronic hepatitis C Results for this PANEL EST without hepatic coma procedu re are in the results section. documented in this encounter Results Hepatitis C RNA, quantitative, PCR (12/23/2017 2:03 PM EST) Component Value Ref Test Analysis Performed At [facility] Range Method Time Signature HCV Viral <15 IU/mL [facility] LABORATORY HCV Viral Result: <15 IU/mL(Target not detected) [facility] Indication for Study: Hepatitis C Infection [facility] Analysis: A quantitiative real time reverse transcriptase PCR assay was LABORATORY performed on extracted viral RNA for the purpose of quantifi cation. Sample: plasma (1 mL minimum volume) Method: Chase Samm TaqMAN 48 HCV Linear Range: 15 IU/mL - 100,000,000IU/mL (95% CI) Note: This assay is being pe rformed in the [facility] [place] [place] Molecular Pathology Laboratory. Sean Dickey, Ph.D. Director, Molecular Pathology Comment: [VERIFIED DATE]01.03.18 Verified By:Lyubov Trinh (Electronic Signature) Specimen Anatomical Collection Method Collection Time Receive d Time (Source) Location / / Volume Laterality Blood specimen 12/23/2017 2:03 PM 018 7:38 (specimen) EST AM EST Resulting Agency Comment Spec In Lab Jane Denny MD IMMUNOLOGY ORDERABLES Performing Organization Address City/[facility]/ZIP Code Phon e Number [address] Gamma GT (12/23/2017 2:03 PM EST) athologist Signature GGT 10 5 - 36 [facility] [place] unit/L [facility] LABORATORY Specimen Anatomical Collection Method Collection Time Receive d Time (Source) Location / / Volume Laterality Blood specimen 12/23/2017 2:03 PM 018 2:18 (specimen) EST PM EST Resulting Agency Comment Spec In Lab Jane Denny MD CHEMISTRY ORDERABLES Performing Organization Address City/[facility] [place] [address] (ABNORMAL) Hepatic Function Panel (12/23/2017 2:03 PM EST) P athologist Signature Total Protein 6.4 6.1 - 8.0 JANE LEEANNA gm/dL [facility] LABORATORY Albumin 3.7 3.2 - 5.2 JANE LEEANNA gm/dL [facility] LABORATORY AST 10 5 - 30 JANE [place] unit/L [facility] LABORATORY ALT 7 0 - 25 JANE [place] unit/L [facility] LABORATORY Alk Phos 47 (L) 55 - 140 [facility] [place] unit/L [facility] LABORATORY Total 0.2 0.2 - 1.3 JANE LEEANNA Bilirubin mg/dL [facility] LABORATORY Bili, Direct 0.1 0.0 - 0.3 JANE MARTÍNEZLEEANNA mg/dL [facility] LABORATORY Specimen Anatomical Collection Method Collection Time Receive d Time (Source) Location / / Volume Laterality Blood specimen 12/23/2017 2:03 PM 018 2:18 (specimen) EST PM EST Resulting Agency Comment Spec In Lab Jane Denny MD CHEMISTRY ORDERABLES Performing Organization Address City/State/ZIP Code Phon e Number [place] [phone] documented in this encounter Visit Diagnoses Diagnosis Chronic hepatitis C without hepatic coma documented in this encounter Care Teams Supervisor Mapping Relationship Specialty Start Date End Date None PCP - General 10/13/17 07/27/21 None documented as of this encounter
--- OUTSIDE RECORDS SUMMARY | 2022-06-24 11:50 | XMS_ITS | Encounter Summary ---
:2000 Author Reason for Visit OUD - buprenorphine follow-up - weekly*; *MAT - Telemedicine Assessment and Plan Assessment Note Telemedicine Information: This telmed (audio + visual) appointment provided a MAT prescription. Time Start: 954; Time End: 101 Provider Location: home; Patient Locatio n: office Telemedicine Consent Given (verbal): Y Marlo is a 22 yo female patient with a history of OUD presents today for their weekly MAT visit. Initial visit: 05/10/22 UDS negative for illicit opioids: x0 Current prescription is: buprenorphine/n aloxone 20mg tabs. Patient denies any S/E, cravings, or wit hdrawal sx at current dose. Update Since Last Visit : Patient reports illicit use since last v isit. - cocaine Patient denied illicit use last week, UD S +gabe and methadone. This specification writer also relayed that they spoke directly to the MAT nurse (Katelyn) at [facility] and Marlo had not been discharged, and they had been trying to contact her as she had a scheduled appo intment last week that she did not show up for. Marlo becomes very agitated and says that SHE decided to leave them because it was too much of a fight. Reviewed with Marlo that transparency i s important for working together in recovery, so support can be given where needed. Her cocaine use is sporadic, depending o n her stress level. She discusses she doesn't have other supports. Her family is more focused on her sister right now. Marlo's sister is going to rehab, so Juan bansalcarmen has had her 4 kids. Their mom is helping as well. She has a follow up tomorrow regarding h er gall bladder surgery. LAB RESULTS Last UDS result (qualitative screen): PO S buprenorphine and POS for the following illicit drugs: +gabe, +methadone, +THC Last confirmatory test result (LCMS/karen titative): Quantitative levels of: - EDDP 1979 - methadone 336 - benzoyl 1999+ Last Bup confirmation test result: Bup: na ng/ml & Norbup: na ng/ml Last LFT result: na ASSESSMENT The patient's current phase of OUD treat ment is: Stabilization phase. Interpretation of last buprenorphine con firmation test result: N/A (new to care) Medication dose: No report of severe or persistent cravings/withdrawal symptoms. Pt will remain at current dose PLAN Rx : Continue buprenorphine/naloxone 20 mg tabs daily. Rx Quantity : 7d Rx provided today. Marlo is very aggressive and insulting, calling provider a fucking piece of shit. A one week script will be sent and she will be discharged immediately to resume care at [facility]. Treatment plan review or change includes continue current level of care LAB ORDERS: Urine drug testing is ordered today with medical necessity as below. Confirmatory testing may be indicated for illicit substances or absence of prescribed buprenorphine. UNEXPECTED results on UDS may impact [facility] patient's treatment plan. The following information will be used to place the proper confirmation orders for the specimen collected for this date 05/17/2022. Perform Confirmation if Positive Ampheta mines Perform Confirmation if Positive Benzodi azepines Admitted Use Cocaine Perform Confirmation if Positive Methado ne - please run trend levels Perform Confirmation if Positive Opiates and/or Fentanyl Perform Confirmation if Positive Oxycodo ne Additional requests in regards to confi rmation orders. NONE LFTS will be repeated per our clinical p rotocol. Prescription monitoring program is revtue. If applicable, I have identified agents prescribed to the patient in addition to any issued by our program. The patient has been counseled regarding any risk of combining sedating agents. 1. Opioid dependence unstable ? drug screen, urine ? test, urine ? buprenorphine 2 mg-naloxone 0.5 mg contreras blingual tablet ? buprenorphine 8 mg-naloxone 2 mg subl ingual tablet Discussion Note: None recorded.Patient educational handouts: No information available. Plan of Care Reminders Provider Appointments None recorded. ? ? Lab Drug Screen, Urine 05/17/2022 [facility] ? Test, Urine 05/17/2022 [facility] Referral None recorded. ? ? Procedures None recorded. ? ? Surgeries None recorded. ? ? Imaging None recorded. ? ? Medications Name Start Date ? ? buprenorphine 2 mg-naloxone 0.5 mg sublingual tablet ? Place 2 tablets every day by sublingual route for 7 d ays. buprenorphine 8 mg-naloxone 2 mg sublingual tablet ? Place 2 tablets every day by sublingual route for 7 d ays. clonazepam 1 mg tablet ? Take 1 tablet as needed by oral route. gabapentin 600 mg tablet ? Take 1 tablet 3 times a day by oral route. methylphenidate 20 mg tablet ? Take 3 tablets every day by oral route. olanzapine 20 mg tablet ? Take 1 tablet every day by oral route. Medications Administered None recorded. Vitals Weight Blood Pressure 234 lbs 122/82 mm[Hg] Results Lab Results Date Name Specimen Result Interpretation Description Value Range Status Address ? 05/17/2022 Drug UR ? Amphetamines negative 1,000 [address] [facility] Screen, NG/mL NG/mL Health: [address], [place] ? ? UR ? Benzodiazapines negative 200 Final [facility] NG/mL NG/mL Health: [address], [place] ? ? UR ? Buprenorphine positive 5 Final [facility] NG/mL NG/mL Health: [address], [place] ? ? UR ABNORMAL Cocaine positive 150 Final Melanie da Metabolite NG/mL NG/mL Health : [address], [place] ? ? UR ? Opiates negative 300 Final [facility] NG/mL NG/mL Health: [address], [place] ? ? UR ? Oxycodone negative 300 Final Melanie da NG/mL NG/mL Health: [address], [place] ? ? UR ABNORMAL Fentanyl positive 2 Final Shiva laine NG/mL NG/mL Health: [address], [place] ? ? UR ? Ethyl Alcohol negative 10 Final [facility] mg/dL mg/dL Health: [address], [place] ? ? UR ? Methadone negative 300 Final Melanie da Metabolite NG/mL NG/mL Health : [address], [place] ? ? UR ABNORMAL Cannabinoids positive 50 Final [facility] (THC) NG/mL NG/mL Health: [address], [place] ? ? UR ? Urine 229.4 >20 Final [facility] Creatinine mg/dL mg/dL Health : [address] ? ? UR ? Urine pH 7.80 4.5-9. Final [facility] 0 Health: [address] ? ? UR ? Specific 1.015 1.003- Final [facility] [place] 1.035 Health: 1 [address] 05/17/2022 Urine ? Hcg negative ? ? V t_medical Test, _st Urine [facility]: [address] [place] [address] Allergies None recorded. Problems Name Status Onset Date Source ? Bipolar Disorder Active 05/10/2022 ? Attention Deficit Hyperactivity Disorder Active 022 ? Panic Disorder Active 05/10/2022 ? Procedures None recorded. Vaccine List None recorded. Social History *Concern for Domestic Violence N *Social Service's Involvement with Dependent Children Not Ap plicable *Legal Status No Legal Issues *Food Adequate *Employment Retired/Disabled *Legal Assistance Not Required *Social Support Network Has Stable Support System *Childcare Needed N *Custody of Dependent Children Full Custody *Primary Care Provider Y *Housing Stable - Safe *Other Medical Issues Yes - Treated *[place] Not a Functional Status Unknown. Past Encounters 05/17/2022 Opioid Dependence Shweta Benton BLOOD BANK ASSISTANT: [address] [place] [phone], Ph. 05/10/2022 Opioid Dependence Shweta Benton BLOOD BANK ASSISTANT: [address] [place] [phone], Ph. History of Present Illness Note: <strong>This patient is here today for their follow-up MAT visit. They are being treated for OUD with buprenorphine.</strong>

<strong><em>PLEASE SEE A & P SECTION FOR FULL VISIT NOTE</em></strong> Review of Systems ? Comprehensive General Adult ROS*, Comprehensive Adult Problem ROS Reported By: Patient Constitutional: Constitutional: no fever, no night sweats Eyes: Eyes: no vision change ENMT: Ears: no difficulty hearing. Mouth/Throat: no sore throat Cardiovascular: Cardiovascular: no chest deneen n Respiratory: Respiratory: no cough Gastrointestinal: Gastrointestinal: no nausea, no vomiting, no constipation, abdominal pain. GI: no diarr hea, no constipation Musculoskeletal: Musculoskeletal: no muscle a ches Neurologic: Neurologic: no headaches Psychiatric: Psych: no sleep disturbances , no insomnia, depression, anxiety, stress Constitutional: Constitutional: normal activ ity level Physical Exam ? Mental Status Exam, General Adult Exam* Reported By: Patient Mental Status Exam: Appearance: well-groomed, he althy-appearing, well-nourished. Behavior: maintains eye cont act, active, agitated. Speech: fluent. Cognition: alert. Mo od: labile. Affect: congruent to thought content, anxious, ho stile Constitutional*: Level of Distress:* no appar ent distress (NAD)* Psychiatric*: Mental Status* normal mood* ENMT*: Lips, Teeth, and Gums: matthias l dentition Lungs*: Respiratory effort:* no miguel angel ble wheezing* Neurologic*: Cranial Nerves:* articulate: coordinated speech*
--- OUTSIDE RECORDS SUMMARY | 2022-06-24 11:50 | XMS_ITS | Encounter Summary ---
:2000 Author Organization [facility] Address [address] [place] [address] Care Team Providers Name Role Phone None Primary Care Provider Unavailable Reason for Visit Reason Comments Rash Encounter Details Date Type Department Care Team Description 12/30/2017 Office Visit Dermatology at [facility] Melinda Corea MD Other eczema ([address] [facility] Dx) [address] [place] [address] [facility] [phone] RD-DERMATOLOGY [place] [id number] Social History Tobacco Use Types Packs/Day Years Used Date Current Every Day Smoker 0.05 Smokeless Tobacco: Former User Alcohol Use Standard Drinks/Week Comments No 0 (1 standard drink = 0.6 oz pure alcoho l) Sex Assigned at Date Recorded Not on file documented as of this encounter Patient Instructions Patient InstructionsShweta Shoemaker LPN - 12/30/2017 3:00 PM EST Triamcinolone: Apply to itchy/affected areas twice daily as needed. Use for up to 2 weeks, then take1 week off; repeat as needed. Apply OTC Sarna lotion topically 2-3 times daily for itching Dry Skin Care Dry skin is more problematic in the winter, when the humidity is lower. Taking measures to maintain the skin's moisture will decrease dryness and itching. Recommendations ?? Bathe in lukewarm water. Wash the skin gently (avoid vigorous scrubbing); use Dove or CeraVe soapto wash dirty areas. Avoid harsh soaps such as Sofiya Spring, Ivory, or Dial as these can be drying. ?? Immediately after bathing, apply a bland, preferably fragrance-free moisturizer to your skin. Ointments work better than creams, which work better than lotions. Look for the following brands: Vaseline 100% petroleum jelly, Vanicream, Neutrogena, CeraVe, Cetaphil, Aveeno, Lubriderm, or Eucerin. documented in this encounter Progress Notes Melinda Corea MD - 12/30/2017 3:00 PM EST DERMATOLOGY - ESTABLISHED PATIENT NOTE Date of service: 12/30/2017 Marlo Lewis : 2000, 17 y.o. CC: Itchy rash. HPI: Marlo Lewis is a 17 y.o. female self-referred for itchy rash. at ~27 weeks gestastion. Itchy rash for 4 weeks--started on stomach now spread all over except the face. Tried tropical law soda w some relief. 09/06 itchy--[facility] who prescribed her triamcinolone 0.1% cream and hydroxyzine 2 tab daily -- minimal relief after 1 week of use. Discontinued these. Oatmeal baths somewhat helps. No improvement w Witch Josselin. Hx of atopic dermatitis as a child. Has asthma. No hay fever. Other pertinent details: HepC Ab positive, viral load negative. Previous IVDU, currently on methadone. Fiance present today. Current marijuana smoker. Shares bed w deanna -- he is not itchy. Does not have an BOBBIN PRESSER. Sees a vacation guide at [facility], Lucie. Relevant Skin History: - Skin cancer (including type): None Family History: Melanoma: None Relevant Social History: - Disabled Medications: Current Outpatient Prescriptions Medication Sig Dispense Refill ??? DICLEGIS 10-10 mg Tablet, Delayed Release (E.C.) 0 ??? promethazine (PHENERGAN) 25 mg Tablet take 1 tablet by mouth every 4 hours if needed 0 ??? gabapentin (NEURONTIN) 800 mg Tablet take 1 tablet by mouth twice a day 0 ? ? vitamin 27 & [id number] 60 mg iron-1 mg Tablet Take 1 tablet by mouth daily. ??? methadone (DOLOPHINE) 10 mg Tablet Take 95 mg by mouth daily. ??? albuterol-ipratropium (COMBIVENT) 18-103 mcg/actuation inhaler Inhale 2 puffs into the lungs every 6 hours as needed. No current facility-administered medications for this visit. Allergies: Allergies Allergen Reactions ??? Latex Hives ??? Adhesive Tape Other (See Comments) blisters Review of Systems: - General: Very itchy. A thorough review of system was performed. Denies unintentional weight loss, fever, night sweats, chest pain/palpitation, headaches/blurred vision, difficulty swallowing, diarrhea, N/V, hematochezia/melena, dysuria/hematuria. Endorses nausea, but has had this since start of . - Skin: No other skin concerns. Examination: - Constitutional: Patient was alert, well-appearing and in no noticeable distress. - Skin: The patient was instructed to disrobe to the level of their comfort. A full body examinationwas performed, which included the head, neck, scalp, arms, hands, legs, feet, chest, back, abdomen, buttocks. A female assistant program director was present and on standby during my examination. Diagnosis/Skin findings/Assessment/Plan: 1. Atopic eruption of : Scattered eczematous patches on the abdomen, legs, arms. No urticaria. Striae largely spared. No findings in periumbilicus, interdigital web spaces, and wrists. -discussed nature of this condition--emphasized the importance of moisturization -discussed pathophysiology -no findings to suggest scabies, pemphigus gestationis, or PUPPP - Rx: triamcinolone 0.1% ointment BID to extremities and trunk for 2 weeks, then one week off, then repeat cycle. - discussed w/ pt the side effects of topical steroids, which include atrophy of the skin, tachyphylaxis, allergic reactions, and rarely systemic effects - pt instructed NOT to apply to the face nor intertriginous areas unless instructed to do so. - pt instructed not to use it for more than allotted duration, given the risk of side effects with longer duration of use. - OTC Sarna PRN for itch - Emphasized sensitive skin care regimen - If minimally improved, may consider light therapy May consider skin bx w DIF to r/o pemphigus gestationis - Encouraged pt to d/c marijuana use - Explained that itch can be 2/2 methadone use and that pt may have to live w the itch at least until delivery. However, patient needs to see her high-risk MFM provider, Dr. Lucas, prior to making any adjustments to her methadone RTC: 6 weeks. Note initiated by Shweta Shoemaker LPN. I am documenting this encounter acting as the scribe for and in the presence of Melinda Corea MD: I performed the above scribed service and agree with the accuracy of the documentation in this encounter. Reviewed and signed by Melinda Corea MD Resident in Dermatology [facility] Staff contract graphic designer: Jemal Shankar MD Section of Dermatology [facility] Jemal Shankar III, MD - 12/30/2017 3:00 PM EST I directly supervised Dr. Desmond Corea during this office visit. He presented the history and physical exam to me. I then saw and examined this patient with Dr. Corea. We reviewed the history and pertinentdetails and I confirmed the physical findings. I agree with the details of the history and physical exam as documented in Dr. Corea's note. JEMAL SHANKAR III, MD Staff Physician Jemal Barnes III, MD - 12/30/2017 3:00 PM EST Pt will call if areas get worse or fail to respond as expected. Jemal Shankar MD Section of Dermatology [facility] documented in this encounter Plan of Treatment Upcoming Encounters Date Type Specialty Care Team Description 10/19/2022 Office Visit Ophthalmology documented as of this encounter Visit Diagnoses Diagnosis Other eczema - Primary documented in this encounter Care Teams Caul Fat Puller Relationship Specialty Start Date End Date None PCP - General 10/13/17 07/27/21 None documented as of this encounter
--- OUTSIDE RECORDS SUMMARY | 2022-06-24 11:50 | XMS_ITS | Encounter Summary ---
:2000 Author Organization [facility] [place] [address] Care Team Providers Name Role Phone None Primary Care Provider Unavailable Reason for Visit Reason Comments Ultrasound Consultation (Routine) - Closed Specialty Diagnoses / Procedures Referred By Contact Refer red To Contact Obstetrics and Diagnoses Abnormal doppler Dante Knox CNM [facility] Decorator Mannequin 5l Gynecology [address] [place], [place] [address] [place] [phone] Phone: Fax: Referral ID Status Reason Start Date Expiration Date Visits Requ ested Visits Authorized [id number] Closed 02/10/2018 02/10/2019 1 1 Encounter Details Date Type Department Care Team Description 02/15/2018 Office Visit Obstetrics and Ansley López Supervis ion of [facility] Gynecology at [facility] MD Sukumar risk in [facility] rd [address] [place], [place] OBSTETRICS & [phone] GYNECOLOGY [phone] [place], [place] [address] (Wo rk) Social History Tobacco Use Types Packs/Day Years Used Date Current Every Day Smoker 0.05 Smokeless Tobacco: Former User Alcohol Use Standard Drinks/Week Comments No 0 (1 standard drink = 0.6 oz pure alcoho l) Sex Assigned at Date Recorded Not on file documented as of this encounter Last Filed Vital Signs Vital Sign Reading Time Taken Comments Blood Pressure 109/67 02/15/2018 8:45 AM EDT Pulse - - Temperature - - Respiratory Rate - - Oxygen Saturation - - Inhaled Oxygen Concentration - - Weight 79.7 kg (175 lb 11.2 oz) 02/15/2018 8:45 AM EDT Height - - Body Mass Index 26.63 12/23/2017 1:09 PM EST documented in this encounter Progress Notes Ansley López MD - 02/15/2018 10:00 AM EDT Gestational age: 32w2d, returns for follow-up ultrasound and limited MFM consult for suspected IUGR and abnormal UA SD. FM felt, no LOF, no bleeding or yulisa. Smoking > 1 PPD day which is cut done. Patient Active Problem List Diagnosis Date Noted ??? Substance use disorder 11/07/2017 ??? Opioid dependence 11/07/2017 ??? Blurred vision, right eye 02/03/2014 ??? 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 AC < 3%ile Amniotic fluid volume normal Presentation breech Placenta posterior anatomy limited, unremarkable UA SD normal Physical Exam BP 109/67 Wt 79.7 kg (175 lb 11.2 oz) BMI 26.63 kg/m2 General: alert, well appearing, in no apparent distress HEENT: normocephalic, atraumatic Abdomen: Gravid, soft, nontender Neurologic:alert, oriented, normal speech, no focal findings or movement disorder noted Psychiatric: Affect is Appropriate. Assessment and Recommendations: 18 y.o. year old female at 32w2d weeks gestation. We reviewed the ultrasound finding and limitation of ultrasound in detecting anomalies and aneuploidy. The growth is appropriate overall but the AC is < 3%ile raising concern that growthrestriction may arise. The umbilical artery Doppler flow and amniotic fluid are normal. I recommend a follow up ultrasound for growth in 2 weeks. She reports that she is already doing testing locally. Typically, this is commenced when growth restriction is present but can be continued since it has been initiated if desired. I encouraged her to quit smoking and offered a patch, gum and losenges all of which she declined. I appreciate the opportunity to be involved in this patients care, and am available if further questions should arise. ANSLEY LÓPEZ MD 02/21/2018 Cc: Dante Knox, with copy of ultrasound report documented in this encounter Plan of Treatment Upcoming Encounters Date Type Specialty Care Team Description 10/19/2022 Office Visit Ophthalmology documented as of this encounter Results US OB Follow Up Evaluation (03/02/2018 1:31 PM EDT) Anatomical Region Laterality Modality Pelvis, Abdomen Ultrasound Specimen (Source) Anatomical Collection Method Collection Time Re ceived Time Location / / Volume Laterality 03/02/2018 1:26 PM EDT Impressions 03/02/2018 1:34 PM EDT 3rd Trimester Summary Single intrauterine with a ge stational age of 34w 3d based on Early Ultrasound ??(03/14). Composite age based on the current ultr asound alone is 31w 5d. Estimated weight corresponds to t he 12th percentile for 34w 3d. Current growth p arameters are suggestive of a small for gestational a ge fetus. Amniotic fluid volume is normal. Normal UA dopplers demonstrated. Anatomical survey is limited due to the late gestational age, however no anomalies are noted. ? Latonya Lucas MD Electronically Signed Final Report ?? 01:34 pm Narrative 03/02/2018 1:34 PM EDT OBSTETRICS REPORT ? (Signed Final 03/02/2018 01:34 pm) PATIENT INFO: ID #: ? [id number] ?: ??[birth year] (18 yrs) Name: ? LILA LEWIS ? Visit Date: 03/02/2018 01:26 pm PERFORMED BY: Performed By: ? Patricio Mccarthy RDMS Attending: ?Latonya Lucas MD ? ?Mariann Referred By: ?ANSLEY LÓPEZ Location: ? [place] SERVICE(S) PROVIDED: ??UOBFOL - Efw - Growth - Purcell - I [id number] ? [id number] ??UOBUA - Umbilical Artery Doppler - IM [id number] ?[id number] INDICATIONS: ??34 weeks gestation of ?Z3A.34 ??growth, fluid, UA SD OB HISTORY: Blood ?A+ ?Height: ??5'8 ?Weight (lb): 175 ? BMI: ??26.61 Type: EVALUATION: Num Of Fetuses: ? 1 Heart ? 123 Rate(bpm): Cardiac Activity: ?? Observed, normal r hythm Presentation: ? Breech Placenta: ? Anterior P. Cord Insertion: ??Not well seen Amniotic Fluid KIMBERLEY FV: ?Normal KIMBERLEY Sum(cm) ? Lar gest Pocket(cm) 11.52 ? 4.53 RUQ(cm) ? RLQ(cm) ? LUQ(c m) ?LLQ(cm) 3.48 ?0.0 ? 4 .53 ? 3.51 --------- BIOMETRY: --------- BPD: ?75.0 ??mm ? G.Age: ?? 30w 1d ? < 3 ??% OFD: ? 110.2 ??mm HC: ?297.1 ??mm ? G.Age: ?? 32w 6d ? < 3 ??% AC: ?269.4 ??mm ? G.Age: ?? 31w 0d ? < 3 ??% FL: ? 63.6 ??mm ? G.Age: ?? 32w 6d ? 9 ??% HUM: ?56.7 ??mm ? G.Age: ?? 33w 0d ?31 ??% CER: ?47.4 ??mm ? G.Age: ?? N/A ? > 95 ??% LV: ?4.5 ??mm CM: ?7.5 ??mm CI: ?68.1 ??% ? 70 - 86 FL/HC: ? 21.4 ??% ? 19.4 - 21.8 HC/AC: ? 1.10 ?0.96 - 1.11 FL/BPD: ?84.8 ??% ? 71 - 87 FL/AC: ? 23.6 ??% ? 20 - 24 Est. FW: ?1822 ?? gm ? 4 lb ?12 ??% GESTATIONAL AGE: U/S Today: ? 31w 5d ?GIA: ?? 04/29/18 Best: ?34w 3d ?? Det. By: ??Early ?GIA: ?? 04/10/18 ? Ultrasound ? (08/31/17) -------- ANATOMY: -------- Cranium: ? Visualize d Cavum: ? Visualiz ed Ventricles: ?Limited vi ews Choroid Plexus: ?Limited view s Cerebellum: ?Limited vi ews Posterior Fossa: ? Limited views Nuchal Fold: ? Not evaluat ed at this gestational age Face: ?Limited views Heart: ? Limited Views RVOT: ?Limited views Diaphragm: ? Limited vi ews Stomach: ? Visualize d Abdomen: ? Limited V iews Abdominal Wall: ?Not well see n due to position Cord Vessels: ?3-vessels- WNL Kidneys: ? Visualize d Bladder: ? Visualize d Spine: ? Limited views Upper Extremities: ? Limited views Lower Extremities: ? Limited views DOPPLER - VESSELS: Umbilical Artery ??S/D ? %tile ? RI ?%tile ? PSV ?ADFV ?RDFV ?(cm/s) ??3.2 ?83.0 ??0.69 ?88.0 ? 53.1 ?No ?No CERVIX UTERUS ADNEXA: Left Ovary Not visualized Right Ovary Not visualized Procedure Note Latonya Lucas MD - 03/02/2018For matting of this note might be different from the original. OBSTETRICS REPORT (Signed Final 018 01:34 pm) PATIENT INFO: ID #: [id number] : [birth year] (18 y rs) Name: LILA LEWIS Visit Date: 2017 01:26 pm PERFORMED BY: Performed By: Chayo Mccarthy RDMS Attending: Latonya Lucas MD Referred By: ANSLEY LÓPEZ Location: [place] SERVICE(S) PROVIDED: UOBFOL - Efw - Growth - Purcell - IMG [id number] UOBUA - Umbilical Artery Doppler - [id number] INDICATIONS: 34 weeks gestation of Z3A.34 growth, fluid, UA SD OB HISTORY: Blood A+ Height: 5'8 Weight (lb): 175 BMI: 26.61 Type: EVALUATION: Num Of Fetuses: 1 Heart 123 Rate(bpm): Cardiac Activity: Observed, normal rhyt hm Presentation: Breech Placenta: Anterior P. Cord Insertion: Not well seen Amniotic Fluid KIMBERLEY FV: Normal KIMBERLEY Sum(cm) Largest Pocket(cm) 11.52 4.53 RUQ(cm) RLQ(cm) LUQ(cm) LLQ(cm) 3.48 0.0 4.53 3.51 --------- BIOMETRY: --------- BPD: 75.0 mm G.Age: 30w 1d < 3 % OFD: 110.2 mm HC: 297.1 mm G.Age: 32w 6d < 3 % AC: 269.4 mm G.Age: 31w 0d < 3 % FL: 63.6 mm G.Age: 32w 6d 9 % HUM: 56.7 mm G.Age: 33w 0d 31 % CER: 47.4 mm G.Age: N/A > 95 % LV: 4.5 mm CM: 7.5 mm CI: 68.1 % 70 - 86 FL/HC: 21.4 % 19.4 - 21.8 HC/AC: 1.10 0.96 - 1.11 FL/BPD: 84.8 % 71 - 87 FL/AC: 23.6 % 20 - 24 Est. FW: 1822 gm 4 lb 12 % GESTATIONAL AGE: U/S Today: 31w 5d GIA: 04/29/18 Best: 34w 3d Det. By: Early GIA: Ultrasound (08/31/17) -------- ANATOMY: -------- Cranium: Visualized Cavum: Visualized Ventricles: Limited views Choroid Plexus: Limited views Cerebellum: Limited views Posterior Fossa: Limited views Nuchal Fold: Not evaluated at this gest ational age Face: Limited views Heart: Limited Views RVOT: Limited views Diaphragm: Limited views Stomach: Visualized Abdomen: Limited Views Abdominal Wall: Not well seen due to fe jacek position Cord Vessels: 3-vessels- WNL Kidneys: Visualized Bladder: Visualized Spine: Limited views Upper Extremities: Limited views Lower Extremities: Limited views DOPPLER - VESSELS: Umbilical Artery S/D %tile RI %tile PSV ADFV RDFV (cm/s) 3.2 83.0 0.69 88.0 53.1 No No CERVIX UTERUS ADNEXA: Left Ovary Not visualized Right Ovary Not visualized IMPRESSION 3rd Trimester Summary Single intrauterine with a ge stational age of 34w 3d based on Early Ultrasound (08/31). Composite age based on the current ultr asound alone is 31w 5d. Estimated weight corresponds to t he 12th percentile for 34w 3d. Current growth p arameters are suggestive of a small for gestational a ge fetus. Amniotic fluid volume is normal. Normal UA dopplers demonstrated. Anatomical survey is limited due to the late gestational age, however no anomalies are noted. Latonya Lucas MD Electronically Signed Final Report 03/02 01:34 pm Ansley López MD IMG US OB ORDERABLES documented in this encounter Visit Diagnoses Diagnosis Supervision of high risk in th ird trimester Unspecified high-risk Supervision of high risk in th ird trimester Unspecified high-risk documented in this encounter Care Teams Social Studies Department Chair Relationship Specialty Start Date End Date None PCP - General 10/13/17 07/27/21 None documented as of this encounter
--- OUTSIDE RECORDS SUMMARY | 2022-06-24 11:50 | XMS_ITS | Encounter Summary ---
:2000 Author Reason for Visit *MAT - Telemedicine; OUD - Initial Visit * Assessment and Plan Assessment Note Telemedicine Information: This telmed (audio + visual) appointment provided a MAT prescription. Time Start: 1052; Time End: 1123 Provider Location: home; Patient Locatio n: office Telemedicine Consent Given (verbal): Y Assessment/Plan This patient with a history of OUD prese nts today for Initial visit. They are seeking treatment with Buprenorphine films/tabs The patient's current phase of treatment is induction phase. See HPI for detailed history of FRANCHESCA SUMMARY OF CURRENT SUBSTANCE USE: Per VPMS: 6d Rx from [place] on 05/07/22. Was being seen by [facility] they discharged her for missing an appointment. She was seen there for 2 years and is sa jazmin that they were dogging her and expecting a lot from her. [facility] is much closer to her (10 minutes ) vs 1 hr 15 min to [facility] in [place]. Current dose is 20mg BNX (8,8,2,2). Lolis morales feels this dose is appropriate, though feels that she does have detox/withdrawal in the evenings. Reviewed dissolving protocol, as unclear why patient would be feeling withdrawal at this dose within less than 24 hours of dissolving. Marlo's presentation is initial rather hostile and aggressive, especially when asked routine questions. As the visit progresses, she relaxes and responds appropriately. MEDICAL : -- Current medical concerns: mariusz woods r removal 1 week ago; Rx oxycodone 5mg #24 tabs 6/7/22 -- PCP Name: Laly Staton er; Rx gabapentin 600mg TID -- Psych med: Janneth Nicole; olanzapine ( bipolar), lamictal, methylphenidate 60mg (ADHD), clonazepam (panic attacks) PSYCHO SOCIAL : -- Housing Stability/Safety: -- Family: two kids (1 bio, 1 adopted - her sister adopted her for her) -- Employment: disabled -- Legal: no, no dcf --Counseling: might be interested The patient does meet diagnostic criteri a for opioid use disorder. MAT Medication Rx : buprenorphine/nalox one 20mg tabs daily Add'l Meds Prescribed : NONE MAT Rx Quantity : 5d Rx provided today. Visit Frequency : weekly visits and UDS . UNEXPECTED results on UDS may impact is patient's treatment plan. The following information will be used to place the proper confirmation orders for the specimen collected for this date 05/10/2022. Perform Confirmation if Positive Ampheta mines Currently Prescribed: clonazepam, PRN Be nzodiazepines Perform Confirmation if Positive Cocaine Perform Confirmation if Positive Methado ne Perform Confirmation if Positive Opiates and/or Fentanyl Perform Confirmation if Positive Oxycodo ne Additional requests in regards to confi rmation orders. NONE Initial lab studies ordered today inclu de HCG (female), CBC with differential, comprehensive metabolic panel, HAV, HBV, HCV, and HIV. Discussed ordered labs and rationale behind required labwork Education and counseling provided at [facility] Comprehensive Addiction Initial Assessment included (as appropriate for this patient): -- Education re: risks and benefits of M AT options (buprenorphine and naltrexone) as appropriate for this patient. -- If treating with buprenorphine, prope r sublingual dosing technique reviewed: No smoking for 20 - 30 min before dose. Sip water prior to dosing. During buprenorphine dissolve, hold all saliva in mouth only until medication is fully dissolve d. Patient may then swallow saliva or spit it out. Rinse mouth with water afterwards. Do not brush teeth for a full hour after dosing. --If treating with buprenorphine, discus sed in-office induction vs home induction, depending on current drug of choice and quantity of use. --If treating with naltrexone, discussed length of abstinence before taking first dose. -- Reviewed program policies, visit freq uency, and expectations regarding behavior. -- Reviewed and defined medication misus e and diversion, discussed that this behavior is against [facility] policy, and can result in discharge from the program. -- Discussed rationale and recommendatio n of psychotherapy to support recovery. Prescription monitoring program is yunior casas. If applicable, this provider has identified agents prescribed to the patient in addition to any issued by our program. The patient has been counseled regarding any risk of combining sedating agents. 1. Opioid dependence unstable ? CMP, serum or plasma ? CBC w/ diff ? gamma-glutamyl transferase (ggt), ser um ? hepatitis A Ab, total, serum ? HIV 1+2 Ab + HIV1 p24 Ag, QL, rapid, immunoassay, serum or plasma or blood ? drug screen, urine ? hepatitis B surface Ab, quantitative, serum ? hepatitis B core Ab, total, serum ? HBsAg (hepatitis B surface Ag), serum ? hepatitis C Ab, quantitative, serum ? hepatitis C virus RNA, quant, PCR, se rum or plasma ? hepatitis C virus genotype, PCR, bloo d ? buprenorphine 2 mg-naloxone 0.5 mg contreras blingual tablet ? buprenorphine 8 mg-naloxone 2 mg subl ingual tablet Discussion Note: None recorded.Patient educational handouts: No information available. Plan of Care Reminders Provider Appointments None recorded. ? ? Lab CMP, Serum or Plasma 05/10/2022 [facility] ? CBC W/ Diff 05/10/2022 [facility] ? Gamma-glutamyl Transferase (Ggt), 05/10/2022 [facility] Serum ? Hepatitis a Ab, Total, Serum 05/10/2022 [facility] ? HIV 1+2 Ab + HIV1 P24 Ag, QL, Rapid, [facility] Immunoassay, Serum or Plasma or Blood ? Drug Screen, Urine 05/10/2022 [facility] ? Hepatitis B Surface Ab, Quantitative, 05/10/20 [facility] ? Hepatitis B Core Ab, Total, Serum 05/10/2022 [facility] ? HBsAg (Hepatitis B Surface Ag), Serum 05/10/20 [facility] ? Hepatitis C Ab, Quantitative, Serum 05/10/2022 [facility] ? Hepatitis C Virus RNA, Quant, PCR, 05/10/2022 [facility] Serum or Plasma ? Hepatitis C Virus Genotype, PCR, 05/10/2022 [facility] Blood Referral None recorded. ? ? Procedures None [...] oral route. Medications Administered None recorded. Vitals None recorded. Results Lab Results Date Name Specimen Result Interpretation Description Value Range Status Address ? 05/10/2022 Drug UR ? Amphetamines negative 1,000 Kacey l [place] Screen, NG/mL NG/mL Health: Urine [address], [place] ? ? UR ? Benzodiazapines negative 200 Final [place] NG/mL NG/mL Health: [address], [place] ? ? UR ? Buprenorphine positive 5 Final [place] NG/mL NG/mL Health: [address], [place] ? ? UR ABNORMAL Cocaine positive 150 Final Melanie da Metabolite NG/mL NG/mL Health : [address], [place] ? ? UR ? Opiates negative 300 Final [place] NG/mL NG/mL Health: [address], [place] ? ? UR ? Oxycodone negative 300 Final Melanie da NG/mL NG/mL Health: [address], [place] ? ? UR ? Fentanyl negative 2 Final [place] NG/mL NG/mL Health: [address], [place] ? ? UR ? Ethyl Alcohol negative 10 Final [place] mg/dL mg/dL Health: [address], [place] ? ? UR ABNORMAL Methadone positive 300 Final Sa [place]ia Metabolite NG/mL NG/mL Health : [address], [place] ? ? UR ABNORMAL Cannabinoids positive 50 Final [place] (THC) NG/mL NG/mL Health: [address], [place] ? ? UR ? Urine Creatinine 145.9 >20 Final [place] mg/dL mg/dL Health: [address], [place] ? ? UR ? Urine pH 7.40 4.5-9. Final [place] 0 Health: [address], [place] ? ? UR ? Specific Follansbee 1.016 1.003- Final [place] 1.035 Health: [address], [place] Allergies None recorded. Problems Name Status Onset [...] Safe *Other Medical Issues Yes - Treated * Not a Functional Status Unknown. Past Encounters 05/10/2022 Opioid Dependence Shweta Benton [employer]ACKER: [address] [place] [phone], Ph. History of Present Illness Note: <div><strong>Initial MAT HPI</strong>
This patient with {{OUD* OUD and AUD}} presents today seeking MAT treatment with {{Suboxone/buprenorphine* Sublocade Oral naltrexone Vivitrol Inj}}.
Current readiness for treatment/stage of change is described as {{pre-contempl ation contemplation preparation action maintenance*}}.
Motivation for presenting for treatment today: {{transition from prior treatment site due to discharge from inpatient rehab mandated/encouraged by DCF mandated/encouraged by probation/parole desire to discontinue illicit substance use kacey ncial requested/encouraged by family/friends transition from prior treatment site due to: discharge from [facility] due to missing appointment#}}
The patient describes individual goals for substance dependence treatment as: {{ steady prescription and support of her stressful life#}}

<strong>Substance use history</strong>: (including first use age, progression, last use, quantity, route)

<strong>Opioids</strong> : Started with oxy/vicodin/percocet age 11. Progressed to IV user with anything I could put in my veins at age 16.

<strong>EtOH</strong>: Dislikes alc ohol, rare use

<strong>Cocaine</strong>: Started age 15 with smoking c rack.

<strong>Stimulants</strong>: Prescribed methylphenidate; no snor ting history.

<strong>Benzodiazepines</strong>: Prescribed clonazepam.

<strong>Marijuana</strong>: Daily smoker, since age 10
&lt ;br><strong>Nicotine</strong>: Daily smoker, since age 10

<strong>Other substances</strong>:

The patient {{denies reports*}} a history of IV drug use.
The patient {{denies reports*}} diagnosis of HCV. Diagnosed around age 16, bloodwork after that showed she had cleared. </div><div>
The patient {{denies reports*}} a history of overdose at age 11. The patient {{denies reports*}} a history of witnessing an overdose.
The patient {{accepts offer for* declines offer for reports already having}} Narcan today and {{reports* denies}} understanding of how to use Narcan properly. Accepts harm reduction bag today.

<strong>Past Treatment history:</strong>& lt;br>-- Office-based opioid treatment program(s): {{Yes* No}} via [facility]; was "kicked out
If yes, last buprenorphine Rx was {{N/A on: on: current#}}
-- Methadone maintenance treatment program(s): {{Yes* No}}. via [facility]; she was kicked out
If yes, last methadone Rx was {{N/A on: on: 2018#}}
-- Illicit {{"street Suboxone methadone*}}: {{Yes* No}}.
If yes, last exposure to {{"street Suboxone illicit methadone*}} was {{NA/on: two days ago#}}

Mostsuccessful program to date has been {{ BNX#}}.
</div> Review of Systems ? Comprehensive General Adult ROS*, Comprehensive Adult Problem ROS Reported By: Patient Constitutional: Constitutional: no fever, no night sweats Eyes: Eyes: no vision change ENMT: Ears: no difficulty hearing. Mouth/Throat: no sore throat Cardiovascular: Cardiovascular: no chest deneen n Respiratory: Respiratory: no cough Gastrointestinal: Gastrointestinal: no abdomin al pain, no nausea, no vomiting, no constipation. GI: no diarrhe a, no constipation Musculoskeletal: Musculoskeletal: no muscle a [...]
--- OUTSIDE RECORDS SUMMARY | 2022-06-24 11:50 | XMS_ITS | Encounter Summary ---
:2000 Author Organization [facility] [place] [address] Care Team Providers Name Role Phone None Primary Care Provider Unavailable Reason for Visit Auth/Cert Specialty Diagnoses / Procedures Referred By Contact Refer red To Contact Diagnoses malpresentation Procedures PRO DELIVERY ONLY @ DELIVERY (WRVU 16.13) Referral ID Status Reason Start Date Expiration Date Visits Requ ested Visits Authorized [id number] 1 1 Encounter Details Date Type Department Care Team Description 03/14/2018 [facility] Marybel Evans MD @ DELIVERY [address] (WRU 16.13) [facility] OBSTETRICS AND [facility] [place] [address] [place] [address] [phone] Social History Tobacco Use Types Packs/Day Years [...] Marlo Lewis Patient Age: 18 y.o. Language: Panamanian Race: White Ethnicity: Not nor Admit date: 03/14/2018 Discharge date and time: 03/17/2018 Attending Physician: Elisha Barr MD Discharge Physician: Ansley Hartley MD Care Provider: Brodie Follow-up Recommendations for Providers: -- 2 week depression screening call -- 6 week visit Inpatient Provider Contact Information: [facility] COUNTY ASSESSOR Department, Discharge Diagnoses (Hospital Problems) and Secondary [...] Information Information for the patient's : Joshua, Jeannine Burch [[id number]] INFORMATION Jeannine Lewis 03/14/2018 11:37 AM by Lower Segment Transverse Sex: female Gestational Age: 36w1d [place] Measurements: Weight: 4 lb 9.7 oz (2090 [...] 95 mg Refills: 0 vitamin 27 & tntafpc-krub-FW 60 mg iron-1 mg Tab Take 1 [...] Depression Contact Numbers: If you see an second steward call: [phone] 9 am - 5 pm, after 5 pm If you see a group managing director call: [phone] all hours If you see a family practitioner call: [phone] all hours If you were transferred to our institution for delivery and cannot reach your local OB provider, call the second steward numbers. General Instructions None Discharge References/Attachments None [...] this in detail. Call your doctor or group managing director for: ??? Fever more than 100.5 ??? [...] follow up appointment. You may call the [facility] at any time for guidance or for answers to questions that come up prior to you follow up appointment. Your [facility] Provider can be reached during office hours at ??? Midwives ??? Obstetricians ??? [facility] Follow-up Clinic AFTER OFFICE HOURS for the second steward or group managing director artist relationship manager Provider electronic signature confirms that discharge instructions [...] Depression Contact Numbers: If you see an second steward call: [phone] 9 am - 5 pm, after 5 pm If you see a group managing director call: [phone] all hours If you see a family practitioner call: [phone] all hours If you were transferred to our institution for delivery and cannot reach your local OB provider, call the second steward numbers. documented in this encounter Medications at [...] & Take 1 tablet by 0 06/03/2022 wplblpb-tckv-PX 60 mg mouth daily. iron-1 mg TabletIndications: [...] Note Office of Care Management Follow Up: [facility] has received order this morning and will be contacting pt when they may pickle maker pump. Plan: SW will continue to follow. HORACE Leal Pager:[phone] Laurie Montano DO - 03/17/2018 3:13 AM EDT Delivery Note Information for the patient's : Joshua, Baby Girl [[id number]] Delivery Date and Time:03/14/2018 11:37 AM Delivery [...] Vitals: 03/15/18 2038 03/16/18 1050 03/16/18 2231 03/16/182231 BP: 123/67 129/76 116/62 BP Location (NBP): [...] appropriate for EBL of 600 ccs. ??? nutrition: pumping for infant in ICN [...] for the patient's : Joshua Baby Girl [[id number]] Delivery Date and Time:03/14/2018 11:37 AM Delivery [...] 10:46 AM EDT Office of Care Management safety equipment testing specialist, Nafisa Cristina, noted that the mother needed to have a breast pump due to her babyborn at 36w1d with IUGR, currently being in the ICN. Order pended to [facility]. Patient stated that she would prefer to pickle maker at the [place] location: [address] [address] [place], [place] Office Sylvie Lopez RN Case Manager Pager #[phone] Paulino Guajardo MD - 03/15/2018 9:31 AM EDT Regional Anesthesia Progress Note Date of Encounter: 03/15/2018 Responsible Attending: beny Griggs Staff / Associate Provider: PAULINO GUAJARDO MD ID: Patient is POD# 2 [...] was instructed to contact Regional Anesthesia Team ([id number]) for any unresolved sensory deficits. ?? Thank you for the opportunity to have participated in the care of this patient. PAULINO GUAJARDO MD Regional Team pager [phone] Lesli Aaron MD - 03/15/2018 6:38 AM EDT Delivery Note Information for the patient's : Jeannine Lewis Girl [[id number]] Delivery Date and Time:03/14/2018 11:37 AM Delivery [...] well without problems. ??? nutrition: pumping for in ICN ??? Contraception: [...] Unknown time ? ? vitamin 27 & qdifbbj-dguz-RV 60 mg iron-1 mg Tablet Take 1 [...] 140, Variability: moderate, Accels: yes, Decels: none, Tow: no ctx Category: I Lab Results Component [...] seen and discussed with Dr. Jc, Attending COUNTY ASSESSOR. Lesli Aaron MD 03/14/2018 Associated attestation - [...] Miscellaneous Notes Plan of Care - Evelyne Park RN - 03/17/2018 5:50 AM EDT Problem: [...] (Interventions Implemented as Appropriate) 03/14/18 0800 03/16/18 18003/17/18 0530 Discharge Needs Assessment Concerns To [...] ice packs after pumping X 48 hours [place] oil to nipples prior to pumping Frequent and prolonged maternal-infant skin to skin contact Offer breast visits/feedings as baby cues interest, offer support for first time mom with positioning, latching baby Baby also receiving some bottle feeding and gavage feedings Close support and follow up Nafisa Cristina RN IBCLC [facility] Services Plan of Care - Jessie Roldan [...] double room. Reviewed ability to stay at [facility] [place] once d/c'd. Also gave paperwork r/t hostel in [place] and [employer] pamphlet. PLAN MOVING FORWARD: [...] with low viral load. Planning on . in ICN. status monitored. Stable. Voiding well and ambulating well about room and unit. pt supported in pumping and encouraged to spend time in ICN with infant. Has been back and forth to ICN numerous times today. Pumping routinely and independently. LC working with pt. Pain assessed routinely and pain meds administered as needed. Pt raiting pain / but states that this is an acceptable [...] mother to reach out for support when is able to go to breast. Encouraged maternal-infant lknz-pb-bifv contact. RECOMMENDATIONS: Pump at least 8-10 times per 24 hours and record in pumping log provided Breast massage and hand expression before and during pumping Brief heat prior to pumping and ice packs after pumping X 48 hours with physiologic engorgement [place] oil to nipples prior to pumping Frequent and prolonged maternal- skin to skin contact Close support and follow up Kandi Muhammad MPH, RN, IBCLC [facility] Services Note - Kandi Muhammad RN - 03/15/2018 11:25 AM EDT This note was copied from a baby's chart. ASSESSMENT INPATIENT Encounter Date/Time: 03/15/2018 1120 Baby's name: Jeannine Lewis : 03/14/2020 [...] Overall weight loss: 0% MATERNAL INFO: Marlo Andino Joshua [id number] 2000 Significant History: Previous experience: None--first-time mom Breast Surgery: No Breast Changes During : Yes Breast Exam : Size: Medium small Shape: round Venous Pattern: Within Normal Limits Milk Production: Colostral Phase Normal. Obtaining 1-2 mls colostrum per pumping session. Mother relays she is pumping every 2-3 hours. Nipple Exam : Normal Everted Color: [place] Compressible: Yes Trauma: None noted Nipple Care Management: -[place] oil -Motherlove ointment OBSERVATION: Not assessed. Pumping session observed. ASSESSMENT: In the ICN on CPAP. Not assessed PATIENT EDUCATION AND RECOMMENDATIONS: Benefits of frequent maternal- Skin to Skin (STS) contact Pumping Recommendations Breast massage and manual expression techniques Written contact information for [facility] Services prn On-going Concerns: First-time parents Inexperienced BF mom Inadequate infant latch due to 's gestation and supplemental oxygen requirements Delayed adequate feeding due to infant's gestation and supplemental oxygen requirements Monitor infant growth and nutrition closely Plan: -Support mother with pumping and onset of Lactogenesis II Pump at least 8-10 times per 24 hours and record in pumping log provided Breast massage and hand expression before and during pumping Brief heat prior to pumping and ice packs after pumping X 48 hours [place] oil to nipples prior to pumping Frequent and prolonged maternal-infant skin to skin contact Close support and follow up Kandi Muhammad MPH, RN, IBCLC [facility] Services Note - Jane Javed RN - 03/14/2018 4:00 PM EDT This note was copied from a baby's chart. ASSESSMENT INPATIENT Encounter Date/Time: 03/14/20181599 Baby's name: Baby Marcin Lewis : 03/14/2020 Time of : 11:37 [...] weight loss: 0% MATERNAL INFO: Marlo Lewis [id number] 2000 G 1 P 1 Significant History: Previous experience: None--first-time mom Breast Surgery: No Breast Changes During : Yes Increased size and leaking for the past several weeks Breast Exam : Size: Medium Shape: Round, slightly pendulous Venous Pattern: Within Normal Limits Milk Production: Colostral Phase Pumped 2cc Soft Nipple Exam : Normal Sized down to 21mm flanges Color: [place] Compressible: Yes Trauma: None: Nipple Care Management: [place] Oil for Pumping ASSESSMENT: In ICN on CPAP PATIENT EDUCATION AND RECOMMENDATIONS: Pump at least 8-10 times per 24 hours and record in pumping log provided Breast massage and hand expression before and during pumping Brief heat prior to pumping and ice packs after pumping X 48 hours [place] oil to nipples prior to pumping Frequent and prolonged maternal-infant skin to skin contact Close support and follow up 20 minutes were spent with this family, providing assessment, assistance, education, and support. Mother voices understanding of education and recommendations. Jane Javed RN, IBCLC [facility] Services Initial Assessments - Orin Araiza MSW - 03/14/2018 3:38 PM EDT Office of Care Management Initial Assessment HORACE Crawford reviewed record and discussed patient with Care Team. Source of Information: patient, pt's mother Yee, and FOGladis Sawyer Introduced self/reviewed role; services accepted. Assessment [...] with ADLs Home Environment: Pt lives in [place], [place] with FOB Silverio. Both parents are currently on SSI. Pt receives about $813 a month and Silverio receives about $800 a month. Social & Family Supports/Community Resources: Pt reports her sisters, mother, and Silverio are all very supportive of her. She is already connected with [employer] and receives $192 in food stamps per month. She plans to apply for [employer] as well. She reports that she already has a visiting nurse through [facility] in [place] so declines VNA. She accepted EI from [facility] and a referral to [facility]. CM is ordering breast pump through [facility]. Behavioral Health History: Pt has a hx of anx/depr and is on neurontin. She reports that this is working well for her right now. Substance Use/Abuse: Pt has hx of opiate use and is currently on methadone maintenance. Both she andNick have been clean for a year and attend [facility]. They are required to go daily for their doses and they see a counselor there. Other Pertinent/Service Specific Information: none Health/Prescription Coverage: Primary Insurance: MEDICAID [place] Secondary Insurance: N/A Prescription Coverage: yes Preferred Pharmacy: [facility] Other: no Primary Care Provider: None None Patient/Caregiver Goals of Treatment: a healthy baby Potential Needs for Transition of Care: Rehab/SNF: no Home Health: has through [facility] DME: pump being ordered through [facility] Dialysis: no Community Resources: accepted referrals Transportation: has ride Other: no Anticipated Barriers to Discharge/Special Considerations: none at this time Assessment: Pt has a lot of support through family members. She is connected to [facility] in [place] for her methadone maintenance. Pump being ordered through [facility]. Plan: SW will continue to follow pt to d/c. A member of the Care Management team will continue to monitor progress, follow for continuity of care and assist with transition of care planning. HORACE Crawford Pager: [phone] Op Note - Lesli Aaron MD - 03/14/2018 3:31 PM EDT [facility] Operative Note Patient Name: Marlo Lewis : [id number] MR#: [id number] ?? Case Date: 03/14/2018 ?? Surgeon: Surgeon(s) and Role: * Marybel Jc MD - Primary * [facility]IRTHING [facility]AVIL[facility], PROCEDURES * Lisa Cash MD - Resident-Surgeon Desmond * Lesli [...] fundal pressure was applied to facilitate deliveryof . The lower extremities followed easily and the bilateral upper extremities were individually swept alongside the torso and delivered.There was no nuchal cord. The head and shoulders delivered easily. Liveborn female was delivered. The cord was doubly clamped [...] Operative Note Patient Name: Marlo Lewis : [id number] MR#: [id number] Case Date: 03/14/2018 Surgeon: Surgeon(s) and Role: * Marybel Jc MD - Primary * BIRTHING PAVILION, PROCEDURES * Lisa Cash MD - Resident-Surgeon Desmond * Lesli [...] Information for the patient's : Jeannine Lewis [[id number]] DELIVERY SUMMARY FOR Jeannine Lewis (please note there is a separate summary for each fetus) 03/14/2018 11:37 AM by Lower Segment Transverse Sex: female Gestational Age: 36w1d Labor Events labor?: No GBS colonized: unknown Risk factors: without risk factors steroids: Full Course Cervical ripening date/time: Cervical ripening type Rupture identifier: Rupture 1 Rupture date/time: 03/14/18 113 Rupture type: artificial rupture of membranes Fluid color: clear Labor onset type: section without labor Augmentation: None Labor onset date/time: Mother Delivery Episiotomy: None Vaginal laceration: No Cervical laceration: No Surgical or additional est. blood loss (mL): 600 Combined est. blood loss (mL): 600 Repair suture: None Delivery ([place]) Delivery Date: 03/14/18 Delivery Time: 1136 Sex: Female Presentation: Breech Attempted ?: No Delivery Type: Delivery Type (Specific): Lower Segment Transverse Major Indications - : malpresentation Shoulder Dystocia Shoulder dystocia present?: No Delivery Information Delivery Location: OR Delivering Clinician: LESLI AARON ICN Staff Present: Yes Other Personnel: Provider Role HÉCTOR GALVEZ Delivery Nurse MARYBEL JC Hotel Night Auditor KARINE SHAFER Delivery Assist LISA CASH Resident LESLI AARON Resident Anesthesia Method: [...] Method: Suctioning Suctioning Method: Bulb syringe Maternal [place] Feeding and Skin to Skin Maternal Choice for [place](s) Feeding on Admission: Skin to skin initiation date/time: Reason skin to skin not initiated: Acuity [place] Medications Medications Given: vitamin K, erythromycin Measurements [...] GENERATION AM EDT procedure are i n ([facility]/CGP/APD/NLH) the resul ts section. CBC (WITH DIFF) Routine 03/14/2018 9:50 AM EDT ANTIBODY SCREEN Routine 03/14/2018 9:50 Results f or this AM EDT procedure are i n the results section. TYPE AND SCREEN Routine 03/14/2018 9:50 ([facility]/CGP/WILD) AM EDT HEPATIC FUNCTION Routine 03/14/2018 9:50 [...] Scan, Peripheral Blood (03/15/2018 4:15 AM EDT) athologist Signature Plat Estimate Normal [facility] RBC Morphology Normal [facility] Specimen Anatomical Collection Method Collection Time Receive d Time (Source) Location / / Volume Laterality Blood specimen 03/15/2018 4:15 AM 018 4:32 (specimen) EDT AM EDT Resulting Agency Comment Spec In Lab Laurie Montano DO HEMATOLOGY ORDERABLES Performing Organization Address City/State/[place] [address] (ABNORMAL) Differential, Automated (03/15/2018 4:15 AM EDT) Patholo gist Method Time Signature Neutrophils % 66.0 % [facility] Neutr Abs (ANC) 10.42 (H) 1.70 - [facility] 6.10 [facility] x10(3)/[facility] LABORATORY Lymphocytes % 21.8 % [facility] Lymphocytes Abs 3.4 (H) 0.9 - 3.2 [facility] x10(3)/[facility] LABORATORY Monocytes % 10.2 % [facility] Monocyte Abs 1.6 (H) 0.3 - 0.9 [facility] x10(3)/[facility] LABORATORY Eosinophils % 1.1 % [facility] Eosinophils Abs 0.2 0.0 - [address] [facility] x10(3)/[facility] LABORATORY Basophils % 0.4 % [facility] Basophils Abs 0.1 0.0 - [address] [facility] x10(3)/[facility] LABORATORY Immature Gran % 0.50 % [facility] [...] Gran Abs 0.08 (H) 0.00 - 0.04 x10(3)/[facility] LABORATORY Specimen Anatomical Collection Method Collection Time Receive d Time (Source) Location / / Volume Laterality Blood specimen 03/15/2018 4:15 AM 018 4:32 (specimen) EDT AM EDT Resulting Agency Comment Spec In Lab Laurie Montano DO HEMATOLOGY ORDERABLES Performing Organization Address City/State/ZIP Code Phon e Number [place] [id number] (ABNORMAL) Hemogram (03/15/2018 4:15 AM EDT) Analysis Performed At Patho logist Time Signature WBC 15.8 (H) 4.0 - 9.5 [facility] x10(3)/[facility] LABORATORY RBC 3.70 (L) 4.00 - [facility] 5.21 [facility] x10(6)/[facility] LABORATORY Hemoglobin 11.9 [address] - [facility] 15.5 gm/dL [facility] Hematocrit 34.8 (L) 35.7 - [facility] 45.8 % [facility] MCV 94.1 82.6 - [facility] 94[facility]4 fL [facility] MCH 32.2 (H) 27.1 - [facility] 32.0 pg [facility] MCHC 34.2 31.7 - [place] 35.0 gm/dL [facility] Platelets 268 145 - 357 [place] x10(3)/[facility] LABORATORY RDWSD 44.1 37.0 - [place] [address] [facility] LABORATORY RDWCV 12.7 11.5 - [place] 14.1 % [facility] LABORATORY MPV 10.6 7.6 - 12.[facility] LABORATORY nRBC % Auto 0.0 % [facility] nRBC Abs Auto 0.000 0.000 - [place] 0.000 [facility] x10(3)/[facility] LABORATORY Specimen Anatomical Collection Method Collection Time Receive d Time (Source) Location / / Volume Laterality Blood specimen 03/15/2018 4:15 AM 018 4:32 (specimen) EDT AM EDT Resulting Agency Comment Spec In Lab Laurie Montano DO HEMATOLOGY ORDERABLES Performing Organization Address City/State/[place] [address] [facility] [address] Surgical Pathology Report (03/14/2018 12:53 PM EDT) Component Value Ref Test Analysis Performed At [facility] gist Range Method Time Signature Surgical [id number] ? Location: BP; BP12; A [facility] Report The signing pathologist has (i) examined the relevant preparation(s) for the [facility] specimen(s) and (ii) rendered or confirmed the diagnosis(es) . HOSPITAL LABORATORY . ?Surgic al Pathology DIAGNOSIS A - Pre-term placenta, 419 grams. ?No chorioamnionitis. ?Three vessel umbilical cord with eccentric inser tion and no funisitis. Electronically signed by: ??Armani Aparicio MD Verified: ??03/16/2018 ?Pathologist Performed at: ??-[facility] Dept. of Pathology, [place], [place] CLINICAL INFORMATION Specimen Submitted: A - Placenta Clinical history/diagnosis: ?? 18 year old; Caesarian section at 36 weeks for IUGR and breech presentation. SPECIMEN PROCESSING A - Labeled/Fixative: Placenta, fresh. Qty/Size/Weight: Multiple, 22 x 18 x 2.0 cm, 419 grams. Tissue Description: Intact o f a rockwell placenta with additional detached portion of umbilical cord. Membranes: Glistening, translucent, pink-avila, marginal inser tion. Cord: 13 x 1.3 [...] MD PATHOLOGY/CYTOLOGY ORDERABLE S Performing Organization Address City/State/ZIP Code Phon e Number [address] Specimen to Pathology (03/14/2018 12:53 [...] MD PATHOLOGY/CYTOLOGY ORDERABLE S Performing Organization Address City/State/[place] [address] Group B Streptococcus Screen (03/14/2018 10:07 AM EDT) P athologist Signature Group B Strep Neg [facility] LABORATORY Specimen (Source) Anatomical Collection Method Collection Time Re ceived Time Location / / Volume Laterality Pooled specimen 03/14/2018 10:07 03/14/20 18 from vaginal AM EDT 10:32 AM EDT introitus and rectal swab (specimen) Comment: Penicillin Allergy?->No Resulting Agency Comment Spec In Lab Lesli Aaron MD MICROBIOLOGY - GENERAL ORDER MARQUITA Performing Organization Address City/[facility]/[place]IP [place] [address] Group B Strep Culture Screen (03/14/2018 10:07 AM EDT) Component Value Ref Test Analysis Performed At [facility] [employer] Range Method Time Signature Group B No Group B [facility] Streptococcus Streptococci MARTIN Culture isolated [facility] Specimen (Source) Anatomical Collection Method Collection Time Re ceived Time Location / / Volume Laterality Pooled specimen 03/14/2018 10:07 03/14/20 18 from vaginal AM EDT 10:32 AM EDT introitus and rectal swab (specimen) Comment: PENICILLIN ALLERGY?->NO Resulting Agency Comment Spec In Lab Marybel Jc MD MICROBIOLOGY - GENERAL ORDER MARQUITA Performing Organization Address City/[facility]/[place] [address] ABORH Recheck Status (03/14/2018 9:50 AM EDT) [facility] [employer] Method Time Signature ABORH Recheck Order Placed [facility] LABORATORY ABORH Type Complete [facility] LABORATORY Specimen Anatomical Collection Method Collection Time Receive d Time (Source) Location / / Volume Laterality Blood specimen 03/14/2018 9:50 AM 018 (specimen) EDT 10:44 AM EDT Resulting Agency Comment Spec In Lab Lesli Aaron MD BLOOD BANK ORDERABLES Performing Organization Address City/[facility]/ZIP Code Phon e Number [address] Antibody screen (03/14/2018 9:50 AM EDT) [facility] [employer] Method Time Signature Ab Screen Negative [facility] LABORATORY Expires at 03/17/2018 [place] [id number] on: [facility] LAB[facility]ORY Specimen Anatomical Collection Method Collection Time Receive d Time (Source) Location / / Volume Laterality Blood specimen 03/14/2018 9:50 AM 018 (specimen) EDT 10:44 AM EDT Resulting Agency Comment Spec In Lab Lesli Aaron MD BLOOD BANK ORDERABLES Performing Organization Address City/State/ZIP Code Phon e Number [address] ABO/Rh Typing (03/14/2018 9:50 AM EDT) P athologist Signature ABORh Type A Pos [facility] Specimen Anatomical Collection Method Collection Time Receive d Time (Source) Location / / Volume Laterality Blood specimen 03/14/2018 9:50 AM 018 (specimen) EDT 10:44 AM EDT Resulting Agency Comment Spec In Lab Lesli Aaron MD BLOOD BANK ORDERABLES Performing Organization Address City/[facility]/ZIP Code Phon e Number [address] [address] (ABNORMAL) Differential, Automated (03/14/2018 9:50 AM EDT) Patholo gist Method Time Signature Neutrophils % 72.3 % [facility] LABORATORY Neutr Abs (ANC) 11.60 (H) 1.70 - [facility] 6.10 [facility] x10(3)/[facility] LABORATORY Lymphocytes % 20.0 % [facility] Lymphocytes Abs 3.2 0.9 - 3.2 [facility] x10(3)/[facility] LABORATORY Monocytes % 5.9 % [facility] Monocyte Abs 0.9 0.3 - 0.9 [facility] x10(3)/[facility] LABORATORY Eosinophils % 0.7 % [facility] Eosinophils Abs 0.1 0.0 - 0.4 [facility] x10(3)/[facility] LABORATORY Basophils % 0.6 % [facility]OR[facility]ORY Basophils Abs 0.1 0.0 - 0.1 [facility] x10(3)/[facility] LABORATORY Immature Gran % 0.50 % [facility] LABOR[facility]ORY Comment: Immature granulocytes(IG's)percentage an d absolute count will include metamyelocytes, myelocytes, and promyelo cytes. Blood smears from CBCs yielding IG's will be scanned manually for concor danping. If this scan disagrees with the automated IG or if promyelocytes are not ed, a manual differential will be performed. Jaymie Gran Abs 0.08 (H) 0.00 - 0.04 x10(3)/[facility] LABORATORY Specimen Anatomical Collection Method Collection Time Receive d Time (Source) Location / / Volume Laterality Blood specimen 03/14/2018 9:50 AM 018 (specimen) EDT 10:15 AM EDT Resulting Agency Comment Spec In Lab Lesli Aaron MD HEMATOLOGY ORDERABLES Performing Organization Address City/State/[place] [address] (ABNORMAL) Hemogram (03/14/2018 9:50 AM EDT) Analysis Performed At Patho logist Time Signature WBC 16.0 (H) 4.0 - 9.5 [facility] LABORATORY RBC 4.02 4.00 - [facility] 5.21 [facility] x10(6)/[facility] LABORATORY Hemoglobin 12.8 11.7 - [facility] 15.5 gm/dL [facility] LABORATORY Hematocrit 37.7 35.7 - [facility] 45.8 % [facility] LABORATORY MCV 93.8 82.6 - [facility] 94.4 [facility] LABORATORY MCH 31.8 27.1 - [facility] 32.0 pg [facility] LABORATORY MCHC 34.0 31.7 - [facility] 35.0 gm/dL [facility] LABORATORY Platelets 289 145 - 357 [facility] x10(3)/[facility] LABORATORY RDWSD 44.0 37.0 - [facility] [address] [facility] LABORATORY RDWCV 12.8 11.5 - [facility] 14.1 % [facility] LABORATORY MPV 10.7 7.6 - 12.9 [facility] LABORATORY nRBC % Auto 0.0 % [facility] LABORATORY nRBC Abs Auto 0.000 0.000 - [facility].CM 0.000 [facility] x10(3)/[facility] LABORATORY Specimen Anatomical Collection Method Collection Time Receive d Time (Source) Location / / Volume Laterality Blood specimen 03/14/2018 9:50 AM 018 (specimen) EDT 10:15 AM EDT Resulting Agency Comment Spec In Lab Lesli Aaron MD HEMATOLOGY ORDERABLES Performing Organization Address City/[facility]/ZIP Code Phon e Number [address] Hepatic Function Panel (03/14/2018 9:50 AM EDT) P athologist Signature Total Protein 6.2 6.1 - 8.0 [facility] gm/dL [facility] LABORATORY Albumin 3.3 3.2 - 5.2 [facility] gm/dL [facility] LABORATORY AST 13 0 - 30 [facility] unit/L [facility] LABORATORY ALT 5 0 - 30 [facility] unit/L [facility] LABORATORY Alk Phos 68 40 - 104 [facility] unit/L [facility] LABORATORY Total 0.3 0.2 - 1.3 [facility] Bilirubin mg/dL [facility] LABORATORY Bili, Direct 0.1 0.0 - 0.3 [facility] mg/dL [facility] LABORATORY Specimen Anatomical Collection Method Collection Time Receive d Time (Source) Location / / Volume Laterality Blood specimen 03/14/2018 9:50 AM 018 (specimen) EDT 10:15 AM EDT Resulting Agency Comment Spec In Lab Marybel Jc MD CHEMISTRY ORDERABLES Performing Organization Address City/[facility]/[place]IP [place] [address] HIV Screen, 4th Generation (03/14/2018 9:50 AM EDT) Analysis Performed At Patho logist Time Signature HIV-1/2 Ab and Negative Negative [facility] LABORATORY Comment: This 4th Generation HIV [...] Organization Address City/State/Z[place] [address] (ABNORMAL) Rapid Drug Screen w/o Confirmation, Urine (03/14/2018 9:38 AM EDT) [facility] Method Time Signature U Barbiturates None None JANE Screen Detected Detected [facility] LABORATORY Comment: The barbiturate screen detects barbitura [...] Methadone Metabolites Presumptive Pos (A) None Detected [facility] LABORATORY Comment: The methadone metabolite screen detects EDDP (major methadone metabolite) at concentrations >100 ng/mL. A ? Presumptive Positive? result indicates that the screening result was positive but has not yet been confirmed by a highly-specific method. As with any screen, occasional false positive re sults from cross-reacting substances may occur. Not for Medico-Legal Purposes. U Opiate Screen None Detected None Detected [facility] LABORATORY Comment: The opiates screen detects opiates at co ncentrations >300 ng/mL. Please note that oxycodone, oxymorphone, fentanyl, tramadol, and other synthetic opioids are not detected by [facility] opiate screen. A ? Presumptive Positive? result indicates that the screening result was positive but has not yet been confirmed by a highly-specific method. As with any screen, occasional false positive re sults from cross-reacting substances may occur. Not for Medico-Legal Purposes. U Cannabinoid Screen Presumptive Pos (A) None Detected [facility] LABORATORY Comment: The marijuana metabolites screen detects the THC metabolite (59-yoj-5-carboxy-delta 9-THC) at concen trations >20 ng/mL. A [...] Screen None Detected None Detected Robert [facility] LABORATORY Comment: The fentanyl screen detects fentanyl at concentrations >2 ng/mL. A ? Presumptive Positive? result indicates that the screening result was positive but has not yet been confirmed by a highly-specific method. As with any screen, occasional false positive re sults from cross-reacting substances may occur. Not for Medico-Legal Purposes. U Tricyclics Screen None Detected None Detected DEBRA PEPPER [facility] LABORATORY Comment: The tricyclics screen detects tricyclic [...] Adulterants Screen None Detected None Detected [facility] LABORATORY Comment: No adulteration or dilution of [...] Organization Address City/State/[place] [address] Rapid Drug Screen, Urine (VERNELL Request) (03/14/2018 9:38 AM EDT) [facility] Method Time Signature VERNELL Conf No [facility] LABORATORY [place]LL Requested See Comment [facility] [...] Organization Address City/State/[place] [address] documented in this encounter Visit Diagnoses Not on filedocumented in this encounter Admitting Diagnoses Diagnosis state, [...] Given 03/16/2018 10:26 PM EDT 975 mg docusate sodium (COLACE) capsule 100 mg Given [...] Given 03/16/2018 10:29 PM EDT 600 mg lidocaine (LIDODERM) 5 % patch 1 patch [...] RN) 1053 (Given - Provider: Jessie Roldan RN)2059 (Given - Provider: Evelyne Park, XENA) 0922 (Given - Provider: Christy Leblanc, XENA) 100 mg, Oral, 2 TIMES DAILY, First dose on Tue03/14/18 at 1315, Until Discontinued, Routine ibuprofen (ADVIL;MOTRIN) tablet 600 mg 2330 (Given - P rovider: Marissa Conner RN) 0647 (Given - Provider: Marissa Hartley ph, RN)1600 (Given - Provider: Jessie Roldan RN)2229 (Given - Provider: Evelyne Park, XENA) 0000 (Not Given - Provider: Evelyne Park RN - Reason: Contraindicated)0647 (Given - Provider: Evelyne Park RN)1349 (Given - Provider: Christy Leblanc, XENA) 600 mg, Oral, EVERY 6 HOURS, First dose on Tue03/16/18 at 0000, Until Discontinued, - Begin after ketorolac discontinued. , Routine ketorolac (TORADOL) injection 15 mg () 0300 (Gi rosalva - Provider: Cassie Browne RN)1031 (Given - Provider: Juany Grullon, XENA)1713 (Given - Provider: Juany Grullon RN)1800 (Due - Provider: Rey Sidhu [facility]) 15 mg, Intravenous, EVERY 6 HOURS, 5 [...] rst dose on Tue03/16/18 at 1100, Until Discontinued, Apply patch(es) for [...] Oral, EVERY MORNING, First dose o n Tue03/15/18 at 0800, Until Discontinued, Liquid methadone [...] Cassie Browne RN)1030 (Given - Provider: Juany Grullon, XENA)1712 (Given - Provider: Juany Grullon RN)2330 (Given - Provider: Marissakamille Conner RN) 0646 (Given - Provider: Marissa Conner RN)1600 (Given - Provider: Jessie Roldan, XENA)2226 (Given - Provider: Evelyne Pakr, XENA) 0647 (Given - Provider: Evelyne Park RN)1349 (Given - Provider: Christy Leblanc, RN) 975 mg, Oral, EVERY 6 HOURS PRN, Startin g Tue03/14/18 at 1253, [...] mg 0256 (Given - P rovider: Cassie Browne RN)0712 (Given - Provider: Cassie Browne RN)1124 (Given - Provider: Juany Grullon, XENA)1608 (Given - Provider: Juany Grullon RN)2340 (Given - Provider: Marissa Conner RN) 0440 (Given - Provider: Marissa Conner RN)1053 (Given - Provider: Jessie Roldan, XENA)1608 (Given - Provider: Jessie Roldan, XENA)2059 (Given - Provider: Evelyne Park, XENA)2227 (Given - Provider: Evelyne Park, XENA) 0323 (Given - Provider: Evelyne Park, XENA) 0922 (Given - Provider: Christy Leblanc, XENA) 2-4 mg, Oral, EVERY 4 HOURS PRN, [...] Starting Tue03/14/18 at 1111, Until Tue03/17/18 at 181, Nausea, Vomiting, PO Preferred. If patient unable [...] 4mg
documented in this encounter Care Teams Linter Operator Relationship Specialty Start Date End Date None PCP - General 10/13/17 07/27/21 None documented as of this encounter
--- OUTSIDE RECORDS SUMMARY | 2022-06-24 11:50 | XMS_ITS | Encounter Summary ---
:2000 Author Organization [facility] [place] [address] Care Team Providers Name Role Phone None Primary Care Provider Unavailable Reason for Visit Reason Comments Establish Care Consultation (Routine) - Closed Specialty Diagnoses / Procedures Referred By Contact Refer red To Contact Obstetrics and Diagnoses POSITIVE TOMEKA C, Kenneth Cardoza, JR [facility] [employer] 5l Gynecology [address] [place] [phone] Fax: Referral ID Status Reason Start Date Expiration Date Visits Requ ested Visits Authorized [id number] Closed 10/05/2017 10/05/2018 1 1 Encounter Details Date Type Department Care Team Description 10/13/2017 Office Visit Obstetrics and Lance, E Supervision o [facility] Gy[facility]cology at [facility] [place] MD Mariann risk in [facility] sec ond trimester [address] [place] OBSTETRICS & [phone] GYNECOLOGY [phone] [place], [place] [address] Social History Tobacco Use Types Packs/Day Years Used Date Current Every Day Smoker Smokeless Tobacco: Former User Alcohol Use Standard Drinks/Week Comments No 0 (1 standard drink = 0.6 oz pure alcoho l) Sex Assigned at Date Recorded Not on file documented as of this encounter Last Filed Vital Signs Vital Sign Reading Time Taken Comments Blood Pressure 118/60 10/13/2017 1:33 PM EST Pulse 71 10/13/2017 1:33 PM EST Temperature - - Respiratory Rate - - Oxygen Saturation 98% 10/13/2017 1:33 PM EST Inhaled Oxygen Concentration - - Weight 76.3 kg (168 lb 3.2 oz) 10/13/2017 1:33 PM EST Height 173 cm (5' 8.11) 10/13/2017 1:33 PM EST Body Mass Index 25.49 10/13/2017 1:33 PM EST documented in this encounter Progress Notes Latonya Castro MD - 10/13/2017 1:45 PM EST Diagnosis/Maternal Medicine Consult Note Lila Avila is a 17 y.o. year old female who is at 14w3d gestation. She is seen in consultation at the request of Kenneth Cardoza CNM for evaluation due to multiple medical complications. She was seen today for maternal- medicine consultation and ultrasound evaluation. Review of Systems Constitutional:feels well Movement: normal Contractions: none Leaking: None Bleeding: None Patient Active Problem List Diagnosis Date Noted ??? Blurred vision, right eye 02/03/2014 ??? 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 Anxiety depression ??? Asthma ??? Chlamydia ??? Chronic pain ??? Depression ??? Hepatitis C ??? Migraine ??? 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 Substance use disorder methadone maintenance Past Surgical History: Procedure Laterality Date ??? INGUINAL HERNIA REPAIR ??? LID SURGERY chalazion sx OU ??? TOOTH EXTRACTION ??? UMBILICAL HERNIA REPAIR Family History Problem Relation Age of Onset [...] ??? Smoking status: Current Every Day Smoker ??? Smokeless tobacco: Former User ??? Alcohol use No ??? Drug use: Yes Special: Opioids (heroin, pills), Marijuana Comment: FRANCHESCA; treatment with methadone; daily MJ ??? Sexual activity: Yes Partners: Male OB History Para Term AB Living 1 SAB TAB Ectopic Multiple Live Births # Outc Date GA Lbr Ten/2nd Wgt Sex Del Anes PTL Lv 1 Current Current Outpatient Prescriptions Medication Sig Dispense Refill ??? gabapentin (NEURONTIN) 800 mg Tablet take 1 tablet by mouth twice a day 0 ? ? vitamin 27 & [id number] 60 mg iron-1 mg Tablet Take 1 tablet by mouth daily. ??? methadone (DOLOPHINE) 10 mg Tablet Take 95 mg by mouth daily. ??? albuterol-ipratropium (COMBIVENT) 18-103 mcg/actuation inhaler Inhale 2 puffs into the lungs every 6 hours as needed. No current facility-administered medications for this visit. Allergies Allergen Reactions ??? Latex Hives ??? Adhesive Tape Other (See Comments) blisters Physical Exam BP 118/60 Pulse 71 Ht 173 cm (5' 8.11) Wt 76.3 kg (168 lb 3.2 oz) SpO2 98% BMI 25.49 kg/m2 General: alert, well appearing, in no apparent distress, oriented to person, place and time HEENT: normocephalic, atraumatic Abdomen: Soft, nontender Extremities: no edema Neurologic:alert, oriented, normal speech, no focal findings or movement disorder noted Psychiatric: Affect is Appropriate. Assessment and Recommendations: 17 y.o. year old female at 14w3d weeks gestation, referred for counseling regarding hepatitis C. Hepatitis C: The available data suggest that women chronically infected with hepatitis C may have anuneventful without worsening of liver disease or increased risk of malformations. Vertical transmission of the virus occurs, occurring in about 2 - 5 percent of infants born to anti-HCV positive women. A high HCV viral load; mothers with viral loads higher than 1 x 10(5) are more likely to transmit hepatitis to their infants. The risk of infection is approximately fourfold higher in infants born to women co-infected with HCV and HIV. There is no evidence that is a risk for infection among infants born to HCV-infected women. Currently, women infected with HCV are not advised to have sections, other than for the usual obstetric indications. Other risk factors for vertical transmission may include rupture of the membranes six or more hours prior to delivery, invasive procedures on the fetus such as blood sampling or internal monitoring, and the presence of HCV in maternal peripheral bloodmononuclear cells. I recommend evaluation of LFTs and viral load, notification of pediatritian at time of delivery, andongoing involvement with gastroenterology. I also recommend consideration of repeat HIV testing during the and at the time of delivery. Ms. Avila agreed to have viral load testing done today at [facility] [place]. We can also arrange for referral to gastroenterology. Marijuana Use in : We discussed the risks of marijuana use during including the following: ?? An increased risk of delivering a fetus with a weight of less than 2500g (5.5 lbs) with at least weekly marijuana use. ?? The development of endogenous cannabinoid receptors begin as early as 14 weeks (2.5 months) gestation. Animal models show that cannabinoid exposure above physiologic levels may disrupt normal brain development. ?? An increased risk of ADD along with a decrease in academic performance in reading and spelling when measured at age 10y in children of women who used marijuana at least weekly. ?? An earlier onset of substance use in children of mothers who used marijuana when measured at age 14y after controlling for home environment and parental substance use. ?? Chemicals in marijuana are known to transfer to breast milk. We discussed our recommendation is to abstain from using marijuana use during and while . We reviewed that there are alternatives to treatment of anxiety and nausea in , including SSRIs, anti-emetics, Diclegis. The patient states that she does not see marijuana as a drug, and is not interested in the above information. FRANCHESCA: Methadone or bupenorphine maintenance is the treatment of choice for opioid-dependent women. A stable replacement dose reduces fluctuations in maternal opioid levels, which reduces stresson the fetus. Illicitly purchased heroin is adulterated with other compounds that may be harmful to the fetus, and methadone or buprenorphine use in reduces the risk of harm from exposure to such adulterants. With both buprenorphine and methadone there is a risk of abstinence syndrome. symptoms generally appear within the first two days of life. Gabapentin may be associated with poor growth in the third trimester. I recommend that the patient return to [facility] [place] [facility] for detailed morphology at 18 weeks. I also recommend growth ultrasounds in the third trimester, due to multiple risk factors for growth restriction (tobacco, marijuana, gabapentin). These follow-up ultrasounds may be performed locally, with referral back only if growth disorder is found. I appreciate the opportunity to be involved in this patients care, and am available if further questions should arise. Latonya CASTRO MD 10/13/2017 Cc: Kenneth Cardoza, [facility] [address] [place] [address] , with copy of ultrasound report documented in this encounter Miscellaneous Notes Addendum Note - Michelle March - 10/13/2017 2:39 PM EST Addended by: MICHELLE MARCH on: 10/13/2017 02:39 PM Modules accepted: Orders documented in this encounter Plan of Treatment Upcoming Encounters Date Type Specialty Care Team Description 10/19/2022 Office Visit Ophthalmology documented as of this encounter Procedures Procedure Name Priority Date/Time Associated Diagnosis Comme nts HEPATITIS C RNA, Routine 10/13/2017 2:46 PM Supervision of [facility] h Results for this QUANTITATIVE, PCR EST risk in [facility] are in second trimester the results section. documented in this encounter Results US OB Detailed Morphology (11/07/2017 10:59 AM EST) Anatomical Region Laterality Modality Pelvis, Abdomen Ultrasound Specimen (Source) Anatomical Collection Method Collection Time Re ceived Time Location / / Volume Laterality 11/07/2017 10:12 AM EST Impressions 11/07/2017 11:11 AM EST 2nd Trimester - Detailed Morphology - S ummary Single intrauterine with a ge stational age of 18w 0d based on Early Ultrasound ??(03/14). Composite age based on the current ultr asound alone is 17w 6d. Current growth parameters are consisten t with prior dating indicating normal growth. Amniotic fluid volume is appropriate fo r gestational age. Detailed anatomic evaluation was performed and no structural abnormalities are noted. ?Robert Gonzalez Electronically Signed Final Report ?? 11:11 am Narrative 11/07/2017 11:11 AM EST OBSTETRICS REPORT ? (Signed Final 11/07/2017 11:11 am) PATIENT INFO: ID #: ? [id number] ?: ??[birth year] (17 yrs) Name: ? LILA AVILA ? Visit Date: 11/07/2017 10:12 am PERFORMED BY: Performed By: ? Yin Leal RDMS Attending: ?Alessandra WATTERS, Marichuy Jesus Referred By: ?KENNETH ROWLEY Location: ? [place] SERVICE(S) PROVIDED: ??[facility] - Detailed Morphology - [id number] ? [id number] INDICATIONS: ??18 weeks gestation of ?Z3A.18 ??MFM; medication exposure; detailed ??morphology OB HISTORY: Blood ?Height: ??5'8 ?Weight (lb): 168 ? BMI: ??25.54 Type: EVALUATION: Num Of Fetuses: ? 1 Heart ? 139 Rate(bpm): Cardiac Activity: ?? Observed, normal r hythm Presentation: ? Breech Placenta: ? Posterior P. Cord Insertion: ??Within Normal Limi ts Amniotic Fluid KIMBERLEY FV: ?Appropriate for gestati onal age --------- BIOMETRY: --------- BPD: ?38.3 ??mm ? G.Age: ?? 17w 5d OFD: ?51.7 ??mm HC: ?144.6 ??mm ? G.Age: ?? 17w 5d AC: ?124.6 ??mm ? G.Age: ?? 18w 0d FL: ? 26.2 ??mm ? G.Age: ?? 18w 0d HUM: ?27.1 ??mm ? G.Age: ?? 18w 4d CER: ?17.9 ??mm ? G.Age: ?? 17w 6d NB: ?5.0 ??mm LV: ?6.9 ??mm CM: ?3.1 ??mm CI: ?74.1 ??% ? 70 - 86 FL/HC: ? 18.1 ??% ? 15.8 - 18 HC/AC: ? 1.16 ?1.07 - 1.29 FL/BPD: ?68.4 ??% FL/AC: ? 21.0 ??% ? 20 - 24 Est. FW: ? 218 ?? gm ? 0 lb 8 o z GESTATIONAL AGE: U/S Today: ? 17w 6d ?GIA: ?? 04/11/18 Best: ?18w 0d ?? Det. By: ??Early ?GIA: ?? 04/10/18 ? Ultrasound ? (08/31/17) TARGETED ANATOMY: Central Nervous System Calvarium/Cranial V.: ??Within Normal L imits Intracranial Arlen: ? Within Normal Limits Cavum: ? Visualiz ed Parenchyma: ?Within Nor mal Limits Lateral Ventricles: ?Within Normal Limits Choroid Plexus: ?Within Yessy l Limits Cereb./Vermis: ? Within Yessy l Limits Cisterna Magna: ?Within Yessy l Limits Midline Falx: ?Within Norm al Limits Spine Cervical: ?Visualize d Thoracic: ?Visualize d Lumbar: ?Visualiz ed Sacral: ?Visualiz ed Shape/Curvature: ? Visualized Head/Neck Face: ?Visuali zed Lips: ?Within Normal Limits Neck: ?Visuali zed Nuchal Fold: ? Within Norm al Limits Nasal Bone: ?Present Profile: ? Visualize d Orbits/Eyes: ? Visualized Mandible: ?Visualize d Maxilla: ? Visualize d Thorax Thoracic Contour: ?Visualized Lungs: ? Visualiz ed 4 Chamber View: ?4- chamber v iew gunner Cardiac Motion: ?Normal Rhyth m Rt Outflow Tract: ?Visualized Lt Outflow Tract: ?Visualized Aortic Arch: ? Visualized Ductal Arch: ? Visualized SVC: ? Visuali zed Cardiac Phoenix: ?Visualized Diaphragm: ? Visualized 3 Vessel View: ? Visualized IVC: ? Visuali zed Crossing: ?Visualize d Abdomen Ventral Wall: ?Visualized Cord Insertion: ?Visualized Situs: ? Normal Stomach: ? Visualize d Liver: ? Visualiz ed Lt Kidney: ? Visualized Rt Kidney: ? Visualized Bladder: ? Visualize d Bowel: ? Visualiz ed Extremities Lt Humerus: ?Visualized Rt Humerus: ?Visualized Lt Forearm: ?Visualized Rt Forearm: ?Visualized Lt Hand: ? Visualize d Rt Hand: ? Visualize d Lt Femur: ?Visualize d Rt Femur: ?Visualize d Lt Lower Leg: ?Visualized Rt Lower Leg: ?Visualized Lt Foot: ? Visualize d Rt Foot: ? Visualize d Other Umbilical Cord: ?3 vessel cor d CERVIX UTERUS ADNEXA: Left Ovary Size(cm) ? 3.3 ??x ?? 3.3 ?x ??2.5 ? Vol(ml): 14.3 Visualized Right Ovary Size(cm) ? 5.4 ??x ?? 2.7 ?x ??3.6 ? Vol(ml): 27.5 Visualized Procedure Note Marichuy Aparicio MD - 11/07/2017Justin velazquez of this note might be different from the original. OBSTETRICS REPORT (Signed Final 017 11:11 am) PATIENT INFO: ID #: [id number] : [birth year] (17 y rs) Name: LILA AVILA Visit Date: 2016 10:12 am PERFORMED BY: Performed By: Yin Leal RDMS Attending: Marichuy Aparicio MD Referred By: KENNETH CARDOZA CNM Location: [place] SERVICE(S) PROVIDED: [facility] - Detailed Morphology - [id number] INDICATIONS: 18 weeks gestation of Z3A.18 MFM; medication exposure; detailed morphology OB HISTORY: Blood Height: 5'8 Weight (lb): 168 BMI : 25.54 Type: EVALUATION: Num Of Fetuses: 1 Heart 139 Rate(bpm): Cardiac Activity: Observed, normal rhyt hm Presentation: Breech Placenta: Posterior P. Cord Insertion: Within Normal Limits Amniotic Fluid KIMBERLEY FV: Appropriate for gestational age --------- BIOMETRY: --------- BPD: 38.3 mm G.Age: 17w 5d OFD: 51.7 mm HC: 144.6 mm G.Age: 17w 5d AC: 124.6 mm G.Age: 18w 0d FL: 26.2 mm G.Age: 18w 0d HUM: 27.1 mm G.Age: 18w 4d CER: 17.9 mm G.Age: 17w 6d NB: 5.0 mm LV: 6.9 mm CM: 3.1 mm CI: 74.1 % 70 - 86 FL/HC: 18.1 % 15.8 - 18 HC/AC: 1.16 1.07 - 1.29 FL/BPD: 68.4 % FL/AC: 21.0 % 20 - 24 Est. FW: 218 gm 0 lb 8 oz GESTATIONAL AGE: U/S Today: 17w 6d GIA: 04/11/18 Best: 18w 0d Det. By: Early GIA: Ultrasound (08/31/17) TARGETED ANATOMY: Central Nervous System Calvarium/Cranial V.: Within Normal Rosales its Intracranial Arlen: Within Normal Limits Cavum: Visualized Parenchyma: Within Normal Limits Lateral Ventricles: Within Normal Limit s Choroid Plexus: Within Normal Limits Cereb./Vermis: Within Normal Limits Cisterna Magna: Within Normal Limits Midline Falx: Within Normal Limits Spine Cervical: Visualized Thoracic: Visualized Lumbar: Visualized Sacral: Visualized Shape/Curvature: Visualized Head/Neck Face: Visualized Lips: Within Normal Limits Neck: Visualized Nuchal Fold: Within Normal Limits Nasal Bone: Present Profile: Visualized Orbits/Eyes: Visualized Mandible: Visualized Maxilla: Visualized Thorax Thoracic Contour: Visualized Lungs: Visualized 4 Chamber View: 4- chamber view gunner Cardiac Motion: Normal Rhythm Rt Outflow Tract: Visualized Lt Outflow Tract: Visualized Aortic Arch: Visualized Ductal Arch: Visualized SVC: Visualized Cardiac Phoenix: Visualized Diaphragm: Visualized 3 Vessel View: Visualized IVC: Visualized Crossing: Visualized Abdomen Ventral Wall: Visualized Cord Insertion: Visualized Situs: Normal Stomach: Visualized Liver: Visualized Lt Kidney: Visualized Rt Kidney: Visualized Bladder: Visualized Bowel: Visualized Extremities Lt Humerus: Visualized Rt Humerus: Visualized Lt Forearm: Visualized Rt Forearm: Visualized Lt Hand: Visualized Rt Hand: Visualized Lt Femur: Visualized Rt Femur: Visualized Lt Lower Leg: Visualized Rt Lower Leg: Visualized Lt Foot: Visualized Rt Foot: Visualized Other Umbilical Cord: 3 vessel cord CERVIX UTERUS ADNEXA: Left Ovary Size(cm) 3.3 x 3.3 x 2.5 Vol(ml): 14.3 Visualized Right Ovary Size(cm) 5.4 x 2.7 x 3.6 Vol(ml): 27.5 Visualized IMPRESSION 2nd Trimester - Detailed Morphology - S ummary Single intrauterine with a ge stational age of 18w 0d based on Early Ultrasound (08/31). Composite age based on the current ultr asound alone is 17w 6d. Current growth parameters are consisten t with prior dating indicating normal growth. Amniotic fluid volume is appropriate fo r gestational age. Detailed anatomic evaluation was performed and no structural abnormalities are noted. Marichuy Aparicio MD Electronically Signed Final Report 11/07 11:11 am E Mariann Castro MD [facility] OB ORDERABLES Hepatitis C RNA, quantitative, PCR (10/13/2017 2:46 PM EST) Component Value Ref Test Analysis Performed At [facility] Range Method Time Signature HCV Viral <15 IU/mL [facility] LABORATORY HCV Viral Result: <15 IU/mL(Target not detected) [facility] Indication for Study: Hepatitis C Infection [facility] Analysis: A quantitiative real time reverse transcriptase PCR assay was LABORATORY performed on extracted viral RNA for the purpose of quantifi cation. Sample: plasma (1 mL minimum volume) Method: Chase Samm TaqMAN 48 HCV Linear Range: 15 IU/mL - 100,000,000IU/mL (95% CI) Note: This assay is being pe rformed in the [facility] Molecular Pathology Laboratory. Sean Dickey, Ph.D. Director, Molecular Pathology Comment: [VERIFIED DATE]10.17.17 Verified By:Lyubov Trinh (Electronic Signature) Specimen Anatomical Collection Method Collection Time Receive d Time (Source) Location / / Volume Laterality Blood specimen 10/13/2017 2:46 PM 017 7:09 (specimen) EST AM EST Resulting Agency Comment Spec In Lab E Mariann Castro MD IMMUNOLOGY ORDERABLES Performing Organization Address City/State/[place] [address] documented in this encounter Visit Diagnoses Diagnosis Supervision of high risk in se cond trimester Unspecified high-risk Supervision of high risk in se cond trimester Unspecified high-risk documented in this encounter Care Teams Rn Training Relationship Specialty Start Date End Date None PCP - General 10/13/17 07/27/21 None documented as of this encounter
--- OUTSIDE RECORDS SUMMARY | 2022-06-24 11:50 | XMS_ITS | Encounter Summary ---
:2000 [place] [address] Care Team Providers Name Role Phone None Primary Care Provider Unavailable Encounter Details Date Type Department Care Team Description 03/02/2018 Hospital Encounter Radiology at [facility] Ansley López Supervision of [facility] MD Sukumar risk in [facility] third trimester [place], [place] CENTER [id number] OBSTETRICS & [phone] GYNECOLOGY [place] [id number] Social History Tobacco Use Types Packs/Day Years [...] & Take 1 tablet by 0 06/03/2022 [id number] 60 mg mouth daily. iron-1 mg TabletIndications: [...] Procedure Name Priority Date/Time Associated Diagnosis Comme [facility] OB FOLLOW UP Routine 03/02/2018 1:31 PM Supervision of high Results for this EDT [...] 01:34 pm) PATIENT INFO: ID #: ? [id number] ?: ??[birth year] (18 yrs) Name: ? LILA LEWIS ? Visit Date: 03/02/2018 01:26 pm PERFORMED BY: Performed By: ? Patricio Mccarthy RDMS Attending: ?Lance WATTERS, E ? ?Mariann Referred By: ?ANSLEY LÓPEZ Location: ? [place] SERVICE(S) PROVIDED: ??UOBFOL - Efw - Growth - Purcell - I [id number] ? [id number] ??UOBUA - Umbilical Artery Doppler - IM [id number] ?[id number] INDICATIONS: ??34 weeks gestation of ?Z3A.34 ??growth, [...] 018 01:34 pm) PATIENT INFO: ID #: [id number] : [birth year] (18 y rs) Name: LILA LEWIS Visit Date: 2017 01:26 pm PERFORMED BY: Performed By: Chayo Mccarthy RDMS Attending: Latonya Lucas MD Referred By: ANSLEY LÓEPZ Location: [place] SERVICE(S) PROVIDED: UOBFOL - Efw - Growth - Purcell - IMG [id number] UOBUA - Umbilical Artery Doppler - [id number] INDICATIONS: 34 weeks gestation of Z3A.34 growth, [...] high-risk documented in this encounter Care Teams Hired Help Relationship Specialty Start Date End Date None PCP - General 10/13/17 07/27/21 None documented as of this encounter
--- OUTSIDE RECORDS SUMMARY | 2022-06-24 11:50 | XMS_ITS | Encounter Summary ---
:2000 Author Organization [facility] [place] [address] Care Team Providers Name Role Phone Cindy Guerrero MD Primary Care Provider Reason for Visit Reason Comments Eye Problem Pt here at the request of Dr Coulter for eval of possible RPE changes OD. 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 Nonspecific and without associated pathology [address] [place] [id number] OPHTHALMOLOGY DE PT. [place] [id number] (Wo rk) Social History Tobacco Use Types Packs/Day Years Used Date Never Assessed Sex Assigned at Date Recorded Not on file documented as of this encounter Progress Notes Carlton Vo MD - 02/03/2014 7:00 PM EDT 1. Blurred vision, right eye AUTOMATED VISUAL FIELD - INTERMEDIATE - OU- BOTH EYES, OCT [id number] EYES 2. 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 Nonspecific and without associated pathology February 03, 2014 RE: Marlo Lewis A#: [id number] Coulter: Thank you for asking me to provide formal consultation for your patient Marlo Lewis whom I saw for consultation on 01/25/2014. As you know, she is a pleasant 13-year-old patient with unexplained reduced visual acuity in the right eye beginning about one year ago. Thank you for your detailed correspondence outlining her history and your examination findings and workup thus far. In addition, we received notes from Dr. Montero detailing his findings and impressions. Marlo presents today with a chief complaint of gradual onset of vision loss in her central vision in the right eye beginning about one year ago. She describes this as slowly progressive over the past year and is becoming worse each month. She defines this as a fixed scotoma which stays in the center of her vision in all whelan of gaze. Importantly, there is no history of trauma, retinopathy of prematurity, inherited color blindness. Her medical history is significant for asthma. She takes Combivent. She also has a subdermal implant (etonogestrel). The patient is a nonsmoker. Marlo presented today measuring 20/150 in the right eye and 20/70 in the left eye. Intraocular pressures were 18 OD and 20 OS. Ductions and versions were full and no pupillary abnormalities were defined. Slit lamp examination revealed deep, quiet, and clear anterior segment anatomy. Posterior segment examination was notable for excellent color and contour of the optic nerves. Temporally, there is a suggestion of pallor, but overall color and contour were well within the range of normal variation. Importantly, the central macula of the right eye revealed subtle RPE alteration which was nonspecific. This was located in the fovea and no fluid exudation or macular dystrophy was defined. No such lesions were seen in the left eye. The retinal vessels and periphery were completely normal and no signs of retinitis pigmentosa or other ocular pathology is noted. Eaglt-Ufbv-Swpjvlg plates were inconclusive, however, she performed D-15 testing perfectly in each eye. Ocular coherence tomography was performed with spectral domain imaging and this was completely normal. No alteration at the level of the retinal pigment epithelium was seen in the right eye, which would correspond to the changes noted on clinical biomicroscopy. B-scan ultrasonography and autofluorescence were performed to examine for the presence of optic nerve head drusen and there were none. Impression: 1. Gradual onset of reduced central visual acuity, right eye, with subjective progression of vision loss. 2. Mild alteration of central macular retinal pigment epithelium architecture. Discussion: Although there is objective evidence for mild RPE alteration in the central macula, I doubt very much that this would contribute to her subjective awareness of decreased visual acuity in the right eye. The RPE alteration which is seen has no clinical characteristics to suggest a macular dystrophy, macular toxicity, or other pathology. One could consider the possibility of mild central serous chorioretinopathy considering her history of therapy with Combivent as well as her implantable steroid as well. However, while possible, I think this would be very unlikely. The OCT scan was completely normal and no alteration at the level of the retinal pigment epithelium was seen and there were no secondary changes. Autofluorescence and B-scan ultrasonography with low gain settings did not reveal the presence of optic nerve head drusen. I do not think that there is pathologic pallor of the temporal rim of the optic disk in each eye. Importantly, the visual field test was inconclusive as was Bgklu-Xqkx-Aeglmtr color vision testing and this clearly suggests a functional overlay. Perhaps most importantly, she was able to perform the D-15 color vision testing in each eye perfectly. This lends a strong argument for normal vision not only in terms of color perception, but also central visual acuity and speaks strongly against the possibility of an early macular dystrophy. Despite having reviewed all of my findings and concerns, the patient is still very upset about her reduced central visual acuity in the right eye and is fearful about progression in the months and years ahead. Ultimately, it may be necessary to secure electrophysiologic testing. We did review the possibility of consultation with our colleagues at the [facility]. They will consider this option and asked that I forward a copy of my report to you as well as to her primary care physician. At the very least, I think she needs continuity of care and followup and would suggest that she see you in four to six months and consider evaluation with Dr. Montero as well.Neuro-ophthalmic consultation may be considered.I understand that neuro-imaging has been performed and was normal. Hopefully, by the time you have received this correspondence, you and I will have spoken by telephone. I wish I had a more definitive answer, but I am certainly not seeing high-risk pathology at this point in time. Respectfully, Carlton Vo MD documented in this encounter Miscellaneous Notes Miscellaneous - Provider, Scanning - 01/31/2014 11:07 AM EST documented in this encounter Plan of Treatment Upcoming Encounters Date Type Specialty Care Team Description 10/19/2022 Office Visit Ophthalmology documented as of this encounter Procedures Procedure Name Priority Date/Time Associated Diagnosis Comme nts AUTOMATED VISUAL FIELD - Routine 02/03/2014 6:59 PM Blurred vi jesus, right INTERMEDIATE - OU- BOTH EDT eye EYES OCT RETINA - OU - BOTH Routine 02/03/2014 6:58 PM Blurred visi on, right EYES EDT eye documented in this encounter Results AUTOMATED VISUAL FIELD - INTERMEDIATE - OU- BOTH EYES (02/03/2014 6:59 PM EDT) Anatomical Region Laterality Modality Other Specimen (Source) Anatomical Location Collection Method / Collectio n Time Received Time / Laterality Volume Carlton Vo MD OPHTHALMOLOGY SERVICES ORDER [facility] OCT [id number] EYES (02/03/2014 6:58 PM EDT) Anatomical Region Laterality Modality Other Specimen (Source) Anatomical Location Collection Method / Collectio n Time Received Time / Laterality Volume Carlton Vo MD OPHTHALMOLOGY SERVICES ORDER [facility] documented in this encounter Visit Diagnoses Diagnosis Blurred vision, right eye - Primary Other specified visual disturbances Retinal pigment epitheliopathy, 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 Nonspecific and without associated patho logy documented in this encounter Care Teams Firer Helper Relationship Specialty Start Date End Date Cindy Guerrero MD PCP - General 10/20/10 10/12/17 [facility] [place] [address] documented as of this encounter
[2022-06-24] MEDS: Ibuprofen 800 MG TAB PO (12:08)
== END 2022-06-24 13:10 | disposition home or self-care (01) ==
PROVIDERS: Emergency Provider Emergency Medicine; PCP Family Medicine
DX: S93.401A Sprain of unspecified ligament of right ankle, initial encounter (principal); J45.909 Unspecified asthma, uncomplicated; F17.210 Nicotine dependence, cigarettes, uncomplicated; W01.0XXA Fall on same level from slipping, tripping and stumbling without subsequent striking against object, initial encounter
CPT/HCPCS: 99283; 73610; 99282

== ENCOUNTER 2022-09-14 11:11 | Outpatient (REF) | payer OTHER, MEDICAID, SELFPAY ==
[2022-09-14 10:43] LABS: *AMPHETAMINES SCREEN URINE Negative (Negative); *BARBITURATES SCREEN URINE Negative (Negative); *BENZODIAZEPINES SCREEN URINE Negative (Negative); Cannabinoids THC Negative (Negative); Cocaine Screen,Urine Negative (Negative); METHADONE URINE SCREEN Negative (Negative); OPIATES URINE SCREEN Negative (Negative)
[2022-09-14 10:45] LABS: Tricyclic Antidepressants Negative (Negative)
[2022-09-17 10:00] LABS: Amphetamine Negative ng/mL (Cutoff: 25); Amphetamines Interpretation Negative.; MDA (Ecstasy Metabolite) Negative ng/mL (Cutoff: 25); MDMA (Ecstasy) Negative ng/mL (Cutoff: 25); Methamphetamine Negative ng/mL (Cutoff: 25); Phentermine Negative ng/mL (Cutoff: 25); Pseudoephedrine/Ephedrine Negative ng/mL (Cutoff: 25)
[2022-09-17 11:12] LABS: Codeine Negative ng/mL (Cutoff: 25); Dihydrocodeine Negative ng/mL (Cutoff: 25); Hydrocodone Negative ng/mL (Cutoff: 25); Hydromorphone Negative ng/mL (Cutoff: 25); Morphine Negative ng/mL (Cutoff: 25); Naloxone Negative ng/mL (Cutoff: 25); Norhydrocodone Negative ng/mL (Cutoff: 25); Noroxycodone Negative ng/mL (Cutoff: 25); Noroxymorphone Negative ng/mL (Cutoff: 25); Opiates Interpretation Negative.
[2022-09-21 07:05] LABS: Fentanyl Interpretation Negative.; Fentanyl by LC-MS/MS Negative; Norfentanyl by LC-MS/MS Negative
== END 2022-09-14 11:12 | disposition home or self-care (01) ==
LOC: LBO 11:11
PROVIDERS: PCP Family Medicine; Visit Provider Counselor Addiction (Substance Use Disorder)
DX: F33.1 Major depressive disorder, recurrent, moderate (principal); F19.11 Other psychoactive substance abuse, in remission
CPT/HCPCS: 80307; 80324; 80361; 80362; 80365; 80354

== ENCOUNTER 2023-06-04 16:13 | Emergency (ER) | payer OTHER, MEDICAID, SELFPAY ==
[2023-06-04 16:28] VITALS: BP 156/90; PULSE 125; RESP 18; TEMP 37.2; O2SAT 100
--- NOTE | 2023-06-04 17:45 | DI.RAD_ITS ---
Exam(s) XR TIB/FIB RT EXAM: XR TIB/FIB RT CLINICAL HISTORY: rule out subcut emphysema. TECHNIQUE: 2D digital imaging was performed. Two views. COMPARISON: CR XR ANKLE RT COMPLETE from 06/24/2022 FINDINGS: BONES: No acute fracture is present. No bony destructive lesion is seen. The knee is unremarkable. Degenerative changes are again noted at the right ankle. SOFT TISSUE: Mild anterior soft tissue swelling. No gas collection. No foreign body IMPRESSION: No acute abnormality. DATA REPOSITORY: RADIATION DOSE DELIVERED:
--- NOTE | 2023-06-04 17:48 | ED.GENADUL_ITS ---
Discharge Plan Disposition Patient Disposition: Home Discharge Details Clinical Impression: Allergic dermatitis, Cellulitis of right lower leg, Hepatitis C carrier, Hx of substance abuse Primary Care Provider: Xavi Laurent ED Provider: Paty Paredes Home Meds and New Rx's Prescriptions: New cephalexin 500 mg tablet 500 mg PO Q8H Qty: 30 0RF No Action triamcinolone acetonide 0.1 % cream 1 applic topical BID buprenorphine-naloxone 8-2 mg tablet, sublingual 3 tab sublingual DAILY olanzapine 7.5 mg tablet 7.5 mg PO DAILY lamotrigine 25 mg tablet 25 mg PO TID clonazepam 0.5 mg tablet 0.5 mg PO DAILY PRN gabapentin 600 mg tablet 600 mg PO TID methylphenidate HCl 20 mg tablet 60 mg PO DAILY Discharge Instructions Instructions: Cellulitis (ED) Additional Instructions: Start cephalexin 500 mg every 6 hours for 10 days. We advise you take a probi otic while on antibiotics. You should also take an antihistamine such as Zyrtec or Claritin or Benadryl for symptoms of itching. Return here for any new or worrisome symptoms. You will get a phone call for a new primary care provider. You should arrange follow-up with that provider soon as possible. Discharge Data Discharge Physician: Paty Paredes Medical Decision Making This is a 23-year-old female with a history of opiate use disorder who denies any recent injections and who is on Suboxone. She is tachycardic and appears slightly agitated and may be displaying mild symptoms of withdrawal. She presents today with right lower extremity warmth and redness that is not typical of cellulitis because of the nonconfluence of the erythema and the irregular distribution. It is certainly possible that this is an allergic reaction or allergic dermatitis. She certainly could have overlying cellulitis and my plan is to start her on cephalexin for presumptive cellulitis. Although she does not have any subcutaneous emphysema, I will obtain plain films to rule out subcutaneous emphysema and necrotizing fasciitis. Differential Diagnosis Differential Diagnosis: Cellulitis versus allergic dermatitis Medical Records Medical records reviewed: Yes I reviewed the patient's medical records. Imaging Data Radiologic Study: Imaging: X-Ray Radiologist's impression: No acute findings HPI General Date/Time Provider Initiated Documentation: 06/04/23 16:59 . Information obtained by: patient and family () . History of Present Illness described as moderate, Quality is described as burning, sharp and constant, and is localized to the lower extremity. Patient reports radiation to (Her pain radiates proximally towards the inguinal ligament on the right. The rash has also moved proximally over several days.). Patient started experiencing this day(s) Patient notes no other symptoms. and rash; denies confusion, chest pain, fever/chills and syncope. Patient did receive the following treatments prior to arrival, none HPI Narrative: Time seen was 174 in bed 11. The patient is a 23-year-old female who presents with pain and redness of the right lower extremity. She says it is both painful and itchy and feels as though it is burning. She does have a history of IV drug abuse but denies any injecting in the lower leg. Her symptoms of pain are associated with a patchy rash. She did have a small lesion on the right lower extremity prior to the onset of pain redness and swelling. She has not taken any medications for the pain. She denies any previous similar episodes. The pain is constant and aggravated by palpation. She does have a history of eczema and attributed the initial lesion to her eczema Related Data Home Medications Medication Instructions Recorded Confirmed buprenorphine 8 mg-naloxone 2 mg 3 tab sublingual DAILY 04/29/22 06/24/22 sublingual tablet clonazepam 0.5 mg tablet 0.5 mg PO DAILY PRN 04/29/22 06/24/22 gabapentin 600 mg tablet 600 mg PO TID 04/29/22 06/24/22 lamotrigine 25 mg tablet 25 mg PO TID 04/29/22 06/24/22 olanzapine 7.5 mg tablet 7.5 mg PO DAILY 04/29/22 06/24/22 triamcinolone acetonide 0.1 % 1 applic topical BID 04/29/22 06/24/22 topical cream methylphenidate HCl 20 mg tablet 60 mg PO DAILY 04/30/22 06/24/22 cephalexin 500 mg tablet 500 mg PO Q8H cellulitis #30 tabs 06/04/23 Previous Rx's Medication Instructions Recorded cephalexin 500 mg tablet 500 mg PO Q8H cellulitis #30 tabs 06/04/23 Allergies Allergy/AdvReac Type Severity Reaction Status Date / Time adhesive tape Allergy Intermediate Skin Rash/ Unverified 06/24/22 11:44 blisters latex AdvReac Unverified 06/24/22 11:44 General Stated Complaint: Cellulitis MARIALUISA: 3 Review of Systems Constitutional Constitutional: Denies fever(s) Gastrointestinal Gastrointestinal: Denies abdominal pain, Reports nausea and Denies vomiting Comments: The patient states that the leg pain causes nausea Allergic/Immunologic Comments: No history of immune compromise [facility] All Active Problems Hepatitis C carrier (Acute) RNA quant and LFTs done 10/11/18 Depression (Acute 05/06/14) [facility] nabor - Dr Albright 04/10 Substance abuse (Acute 06/16/16) opiates, cocaine Tobacco dependence (Acute 11/28/15) Chronic mixed headache syndrome (Acute 09/13/13) Hepatitis C virus infection (Acute 04/01/17) Repeat testing 10/14 to determine chronic vs acute History of section (Chronic) 03/14/2018 at [facility] [place] [facility]. 36w 1d for IUGR and breech presentation. Female weight 4 pounds 7 ounces (2090 g) Ovarian cyst (Acute) Osteochondritis dissecans of right talus (Acute) Dysuria (Acute) Cholelithiasis (Acute) Biliary colic (Acute) Hx of substance abuse (Acute) opiates, cocaine Allergic dermatitis (Acute) Cellulitis of right lower leg (Acute) Medical History Acne ADHD (attention deficit hyperactivity disorder) Anxiety Asthma Depression Depression (05/06/14) Dysuria (08/30/13) Eczema Encounter for insertion of intrauterine contraceptive device (06/07/14) Headache Hip pain (01/10/15) History of asthma (11/28/15) Hx of bipolar disorder Infertility (04/18/17) Inguinal hernia Insomnia Normal first in second trimester (12/13/17) School problem Substance abuse (06/16/16) Clean since 2017 UTI (urinary tract infection) Vision problem Surgical History section (03/14/18) [facility] [place] [facility] for IUGR. PC/S for breech presentation. Not a candidate for ECV. Repair of inguinal hernia Repair of umbilical hernia (10/29/16) Tooth extraction Family History Mother Substance abuse Father Substance abuse [place] Substance abuse GRANDPARENT Substance abuse Essential hypertension Depression Heart disease Hyperlipidemia Neoplasm Asthma Social History Smoking/Tobacco Use Status: Current every day Tobacco Type: cigarettes Smoking packs per day: 1 Smoking cigarettes per day: 20.0 Quit status: considering quitting Counseling given: provider counseling Smoking risk assessment performed?: Yes Alcohol Intake: current Alcohol Intake frequency: holidays/special occasions only Drug use: Daily Substance use type: marijuana and prescription drug Counseling provided: treatment program and other Details: On Suboxone Do you feel safe at home: Yes Do you feel safe in your relationship?: Yes Female Reproductive History Menstrual control method: none History History 2 Para 1 Hx # Term Pregnancies Multiple births Hx # Pregnancies Ectopic pregnancies AB induced Hx Number of Living Children AB spontaneous Exam Const General: cooperative, no acute distress, well developed, well groomed, anxious, well hydrated and other (The patient appears anxious and appears to have trouble sitting still. ) Nutritional Appearance: average body habitus and well nourished Orientation: alert, awake and oriented x3 HENMT Head: normal to inspection, normocephalic and atraumatic Ears: hearing grossly normal bilaterally and external ears normal General nose exam: external nose normal and no nasal discharge Face and sinus: normal facial exam Mouth: moist mucous membranes and other (Normal phonation) Throat: posterior oropharynx normal Eyes General: appearance normal, both eyes and all related structures Eyelids: eyelids normal Pupils: PERRL EOM: EOM intact bilaterally Neck Neck: normal visual inspection and full ROM Chest Chest: normal inspection of the chest Resp Effort & Inspection: normal respiratory effort and able to speak in complete sentences Auscultation: clear to auscultation bilaterally and abnormal I/E ratio Cardio Rate: regular rate Rhythm: regular rhythm Heart Sounds: S1 normal, S2 normal, no gallops, no murmurs and no rubs GI Inspection: normal to inspection and non-distended Palpation: soft, no guarding and nontender Auscultation: normal bowel sounds General: No CVA tenderness Back/Spine/Pelvis Back: no CVA tenderness Cervical Spine: normal cervical lordosis Thoracic/Lumbar Spine: thoracic and lumbar spine normal to inspection Skin General skin exam: turgor normal, no petechiae and no purpura Other: The patient has an irregular erythematous flat warm macular rash with irregular but well-defined margins. It begins just above the right ankle and involves the anterior aspect of the right lower leg. There is no subcutaneous emphysema. There is no lymphangitis. She has some tender inguinal adenopathy. There is a small lesion on the mid right pretibial area of the right lower extremity. She is neurovascularly intact. She has full range of motion of all the joints of the lower extremity without any effusions. Neuro General: patient alert, patient awake, patient oriented x3, no meningeal signs, no focal motor deficits and CN's II-XI intact bilaterally Cranial Nerves: CN's II-XI intact bilaterally Cognition: normal cognition Speech: speech normal Motor: muscle tone normal throughout Sensory Exam: no sensory deficits noted Extrem General: full ROM, capillary refill normal and normal exam except as noted Psych Appearance: grossly normal Affect: normal affect Attitude: cooperative Insight: insight good Judgment: judgment good Other: The patient appears to have capacity make medical decisions. Course Vital Signs Vital signs: Vital Signs Temperature 37.2 C 06/04/23 16:28 Pulse 125 H 06/04/23 16:28 Respiratory Rate 18 06/04/23 16:28 Blood Pressure 156/90 H 06/04/23 16:28 Pulse Oximetry 100 06/04/23 16:28 Temperature 37.2 C 06/04/23 16:28 Temperature Source Oral 06/04/23 16:28 Pulse 125 H 06/04/23 16:28 Respiratory Rate 18 06/04/23 16:28 Respiratory Effort Normal, Non-Labored 06/04/23 16:32 Blood Pressure 156/90 H 06/04/23 16:28 Pulse Oximetry 100 06/04/23 16:28 Oxygen Delivery Method Room Air 06/04/23 16:28 Oxygen Flow Rate 0 06/04/23 16:28 Pain Level 9 06/04/23 16:28
[2023-06-04] MEDS: Cephalexin 500 MG CAP PO (18:19)
[2023-06-04] MEDS: Ibuprofen 600 MG TAB PO (18:19)
[2023-06-04] MEDS: Acetaminophen 500 MG TAB 1000 MG PO (18:19)
--- NOTE | 2023-06-04 19:08 | DI.VRAD_ITS ---
PROCEDURE INFORMATION: Exam: XR Right Tibia and Fibula Exam date and time: 06/04/2023 6:33 PM Age: 23 years old Clinical indication: Cellulitis; Lower leg; Right; Patient HX: Rule out subcut emphysema TECHNIQUE: Imaging protocol: Radiologic exam of the right tibia and fibula. Views: 2 views. COMPARISON: CR XR ANKLE RT COMPLETE 06/24/2022 11:59 AM FINDINGS: Bones/joints: Normal. Soft tissues: Normal. IMPRESSION: No acute findings. Dictated and Authenticated by: Trenton Harman MD. Ordering:ALEC Newman MD
--- NOTE | 2023-06-04 19:25 | NUR.NOTE ---
Pt placed on care management list to set up primary care. Pt to be contacted PAULINO.
--- NOTE | 2023-06-07 12:19 | CMACTNOTE_ITS ---
Date of service: 06/07/23 Time of Service: 12:19 Care Management Activity Note Activity Note Text Activity Note Text: Marlo is seen in the ED for cellulitis of right lower leg. At the request of ED provider, THU coordinates a referral to Alee Xiao MD, of [facility], [facility], to assist Marlo in obtaining a follow up appointment and with establishing care with a PCP. Marlo's chart lists Xavi Laurent MD, as her PCP but a phone call to [facility] in [place], [place], reveals she is not an active patient of their Health Center. Marlo was [employer] and Medicaid for insurance.
== END 2023-06-04 19:32 | disposition home or self-care (01) ==
PROVIDERS: Emergency Provider Emergency Medicine Emergency Medical Services; PCP Family Medicine
DX: L23.9 Allergic contact dermatitis, unspecified cause (principal); L03.115 Cellulitis of right lower limb; B18.2 Chronic viral hepatitis C; F11.20 Opioid dependence, uncomplicated; F17.210 Nicotine dependence, cigarettes, uncomplicated; Z23 Encounter for immunization
CPT/HCPCS: 90471; 96360; 99283; 73590

== ENCOUNTER 2025-04-06 17:14 | Inpatient (IN) | payer MEDICARE, MEDICAID, SELFPAY ==
[2025-04-06 17:22] VITALS: BP 120/86; PULSE 85; RESP 20; TEMP 37.1; O2SAT 99
--- NOTE | 2025-04-06 17:30 | DI.RAD_ITS ---
Exam(s) XR TIB/FIB LT EXAM: XR TIB/FIB LT CLINICAL HISTORY: leg infection. TECHNIQUE: 2D digital imaging was performed. COMPARISON: CR,XR XR TIB/FIB RT from 06/04/2023 FINDINGS: Two views. No evidence of fracture nor obvious degenerative changes in the knee and ankle joint. Bone density n ormal. No osseous lesions nor erosions. There is some edema in the distal half of the calf. No radiopaque foreign body. No soft tissue gas evident. IMPRESSION: Soft tissue findings as above. No osseous findings. No radiopaque foreign body. DATA REPOSITORY: RADIATION DOSE DELIVERED:
[2025-04-06 18:33] LABS: Abs Immature Grans 0.02 10^3/uL (0.0-0.06); Absolute Basophil Count 0.02 10^3/uL (0.0-0.2); Absolute Eosinophil Count 0.02 10^3/uL (0.0-0.7); Absolute Monocyte Count 0.42 10^3/uL (0.1-0.8); Absolute Neutrophil Count 5.46 10^3/uL (1.2-6.7); Basophils % 0.3 %; Eosinophils % 0.3 %; HCT 40.2 % (36.0-46.0); HGB 13.7 g/dL (11.2-15.7); Immature Grans % 0.3 %; Lymphocytes % 13.2 %; MCH 29.2 pg (27.0-33.0); MCHC 34.1 % (32.0-36.0); MCV 86 fL (80-95); MPV 9.8 fL (8.0-11.0); Monocytes % 6.1 %; Neutrophils % 79.8 %; Platelet Count 300 10^3/uL (130-400); RBC 4.69 10^6/uL (3.93-5.22); RDW 11.7 % (11.7-14.6); RDW-SD 35.8 fL; WBC 6.84 10^3/uL (4.4-10.8)
[2025-04-06 18:34] LABS: ESR 21 mm/hr (0-20)
--- NOTE | 2025-04-06 18:37 | ED.GENADUL_ITS ---
Discharge Plan Disposition Patient Disposition: Admit to [facility] Condition: Stable Discharge Details Clinical Impression: Cellulitis, Hx of substance abuse Primary Care Provider: None,None ED Provider: Tosha Brumfield Home Meds and New Rx's Prescriptions: No Action olanzapine 7.5 mg tablet 7.5 mg PO DAILY lamotrigine 25 mg tablet 25 mg PO TID clonazepam 0.5 mg tablet 0.5 mg PO DAILY PRN gabapentin 600 mg tablet 600 mg PO TID methylphenidate HCl 20 mg tablet 60 mg PO DAILY HPI General Date/Time Provider Initiated Documentation: 04/06/25 17:20 . Limitations to Documentation: no limitations . Information obtained by: patient . HPI Narrative: 25-year-old female with past medical history of hepatitis C, IV drug use, polysubstance abuse presents for evaluation of left leg swelling and redness. Patient was arrested this afternoon but was not excepted to the [facility] because of the wound of her left lower extremity so she presented here for medical clearance. Patient reports that about 5 days ago she shaved her legs and cut her leg. She reports that about 2 days afterwards, she developed swelling and redness. She had a small wound on the lateral aspect of her leg. The swelling and redness have progressed fairly quickly. She reports pain worse with walkin g. She reports fever yesterday. She states that she is still using IV drug injections, but reports that she only uses those injections in her neck. She does report prior history of skin infections. She denies any chest pain or shortness of breath. Related Data Home Medications ?Medication ?Instructions ?Recorded ?Confirmed clonazepam 0.5 mg tablet 0.5 mg PO DAILY PRN 04/29/22 04/06/25 gabapentin 600 mg tablet 600 mg PO TID 04/29/22 04/06/25 lamotrigine 25 mg tablet 25 mg PO TID 04/29/22 04/06/25 olanzapine 7.5 mg tablet 7.5 mg PO DAILY 04/29/22 04/06/25 methylphenidate HCl 20 mg tablet 60 mg PO DAILY 04/30/22 04/06/25 Allergies Allergy/AdvReac Type Severity Reaction Status Date / Time adhesive tape Allergy Intermediate Skin Rash/ Unverified 04/06/25 17:27 blisters latex AdvReac Skin Rash Unverified 04/06/25 17:27 General Stated Complaint: RashLesion MARIALUISA: 3 Exam Narrative Exam Narrative: Review of Systems: All systems reviewed & are unremarkable except as noted in HPI and below Well-developed, disheveled afebrile NCAT RRR, no murmur Unlabored respiratory effort Left lower extremity with 1 cm wound over the lateral malleolus and another smaller wound on the heel, there is significant edema and bright erythema with tenderness to palpation. She also has 2 subtle bruises over the anterior carson, no crepitus appreciated, foul smell like Pseudomonas Course Vital Signs Vital signs: Vital Signs Temperature 37.1 C 04/06/25 17:22 Pulse 85 04/06/25 17:22 Respiratory Rate 20 04/06/25 17:22 Blood Pressure 120/86 04/06/25 17:22 Pulse Oximetry 99 04/06/25 17:22 Temperature 37.1 C 04/06/25 17:22 Pulse 85 04/06/25 17:22 Respiratory Rate 20 04/06/25 17:22 Blood Pressure 120/86 04/06/25 17:22 Blood Pressure Position Sitting 04/06/25 17:22 Pulse Oximetry 99 04/06/25 17:22 Oxygen Delivery Method Room Air 04/06/25 17:22 Oxygen Flow Rate 0 04/06/25 17:22 Lab/Test Results Lab/Test Results: 04/06/25 18:18 Blood Blood Culture - Pending 04/06/25 17:36 Blood Blood Culture - Pending Laboratory Tests Range/Units 04/06/25 18:18 WBC (4.4-10.8) 10^3/uL 6.84 RBC (3.93-5.22) 10^6/uL 4.69 Hgb (11.2-15.7) g/dL 13.7 Hct (36.0-46.0) % 40.2 MCV (80-95) fL 86 MCH (27.0-33.0) pg 29.2 MCHC (32.0-36.0) % 34.1 RDW (11.7-14.6) % 11.7 Plt Count (130-400) 10^3/uL 300 MPV (8.0-11.0) fL 9.8 Immature Gran % % 0.3 Neutrophils % % 79.8 Lymphocytes % % 13.2 Monocytes % % 6.1 Eosinophils % % 0.3 Basophils % % 0.3 Nucleated RBC % (0.0-0.3) % 0.0 Absolute Neutrophils (1.2-6.7) 10^3/uL 5.46 Absolute Lymphocytes (1.2-3.4) 10^3/uL 0.90 L Absolute Monocytes (0.1-0.8) 10^3/uL 0.42 Absolute Eosinophils (0.0-0.7) 10^3/uL 0.02 Absolute Basophils (0.0-0.2) 10^3/uL 0.02 ESR (0-20) mm/hr 21 H Medical Decision Making Emergent evaluation of skin infection. Patient has multiple risk factors including housing insecurity, IV substance abuse. No history of diabetes. Her left lower extremity appears fairly concerning and given that she is only had symptoms over the last couple of days it seems to be spreading quickly. She is afebrile here but reports a fever at home. Plan for blood work cultures x-ray of the lower extremity and antibiotics. Given her multiple risk factors anticipate need for IV antibiotics and hospitalization. Lab work reviewed. The patient's white blood cell count is not elevated, no anemia. Her ESR and CRP are both elevated. Procalcitonin elevated. However while in the emergency department, the area of infection was marked but seems to continue to worsen. Given that she will be sent to [facility], limited access to hygiene medical treatment and this progressive worsening with multiple risk factors I do feel that the patient would benefit from IV antibiotics and close monitoring. He has had cultures obtained and antibiotics have been initiated. I gave the patient vancomycin and cefepime for Pseudomonas coverage given the smell. Discussed with hospitalist. Patient will be admitted to their service for further management. Quality:[facility] Health Related Social Needs: No Data to Display [facility] All Active Problems (Updated 04/06/25 @ 19:48 by Tosha Brumfield MD) Cellulitis (Acute) Hx of substance abuse (Acute) opiates, cocaine Biliary colic (Acute) Cholelithiasis (Acute) Dysuria (Acute) Osteochondritis dissecans of right talus (Acute) Ovarian cyst (Acute) History of section (Chronic) 03/14/2018 at [facility] [place]. 36w 1d for IUGR and breech presentation. Female weight 4 pounds 7 ounces (2090 g) Hepatitis C virus infection (Acute 04/01/17) Repeat testing 10/14 to determine chronic vs acute Chronic mixed headache syndrome (Acute 09/13/13) Tobacco dependence (Acute 11/28/15) Substance abuse (Acute 06/16/16) opiates, cocaine Depression (Acute 05/06/14) [facility] eval - Dr Albright 04/10 Hepatitis C carrier (Acute) RNA quant and LFTs done 10/11/18 Medical History Acne ADHD (attention deficit hyperactivity disorder) Anxiety Asthma Depression Depression (05/06/14) Dysuria (08/30/13) Eczema Encounter for insertion of intrauterine contraceptive device (06/07/14) Headache Hip pain (01/10/15) History of asthma (11/28/15) Hx of bipolar disorder Infertility (04/18/17) Inguinal hernia Insomnia Normal first in second trimester (12/13/17) School problem Substance abuse (06/16/16) Clean since 2017 UTI (urinary tract infection) Vision problem Surgical History section (03/14/18) [facility] [place] for IUGR. PC/S for breech presentation. Not a candidate for ECV. Repair of inguinal hernia Repair of umbilical hernia (10/29/16) Tooth extraction Family History Mother Substance abuse Father Substance abuse [place] Substance abuse GRANDPARENT Substance abuse Essential hypertension Depression Heart disease Hyperlipidemia Neoplasm Asthma Social History Smoking/Tobacco Use Status: Current every day Tobacco Type: cigarettes Smoking packs per day: 1 Smoking cigarettes per day: 20.0 Quit status: considering quitting Counseling given: provider counseling Smoking risk assessment performed?: Yes Alcohol Intake: current Alcohol Intake frequency: holidays/special occasions only Drug use: Daily Substance use type: marijuana, crack/cocaine, prescription drug and other Counseling provided: treatment program and other Details: On Suboxone Do you feel safe at home: Yes Do you feel safe in your relationship?: Yes Female Reproductive History Menstrual control method: none History History 2 Para 1 Hx # Term Pregnancies Multiple births Hx # Pregnancies Ectopic pregnancies AB induced Hx Number of Living Children AB spontaneous
[2025-04-06 18:44] LABS: Prothrombin Time 10.4 sec (9.1-11.1)
[2025-04-06 18:47] LABS: HCG Qual (Serum) Negative
[2025-04-06 18:50] LABS: ALT 16 U/L (14-59); AST 13 U/L (15-37); Albumin 4.2 g/dL (3.4-5.0); Alkaline Phosphatase 76 U/L (46-116); Anion Gap 8.5 mmol/L (3-11); BUN 11 mg/dL (7-18); Bilirubin, Total 0.4 mg/dL (0.2-1.0); CO2 31.5 mmol/L (21.0-32.0); CREATININE 0.8 mg/dL (0.55-1.02); Calcium 9.6 mg/dL (8.5-10.1); Chloride 97 mmol/L (98-107); Glucose 92 mg/dL (74-106); Potassium 3.7 mmol/L (3.5-5.1); Sodium 137 mmol/L (136-145); Total Protein 9.4 g/dL (6.4-8.2)
[2025-04-06] MEDS: VANCOMYCIN 1,000 MG in Normal Saline 250 ML 166.6666 MG IVPB (19:13)
[2025-04-06 19:19] LABS: Procalcitonin 0.14 ng/mL
--- NOTE | 2025-04-06 19:52 | HPE_ITS ---
Date of service: 04/06/25 Time of Service: 19:52 Assessment and Plan Assessment and plan (1) Cellulitis: Status: Acute Assessment and plan: - Patient presents after experiencing worsening wound and cellulitis on the left lower extremity after cutting herself while shaving - She reports a fever yesterday but has been afebrile in the emergency department and without white blood cell count, elevated respiratory rate or tachycardia she does not meet criteria for sepsis - However, while she was in the emergency department the borders of erythema were noted to expand - She was started on Vanco and cefepime which will be continued - Area was without fluctuance and x-ray of the area did not show any acute findings (2) Hx of bipolar disorder: Assessment and plan: -continue home lamictal 25mg TID, olanzapine 7.5mg daily (3) Hx of substance abuse: Status: Acute History of Present Illness History of Present Illness Chief Complaint: Left leg wound/infection N arrative: 25-year-old female with a past medical history of hepatitis C, IV drug use, polysubstance use, and bipolar presents to the emergency department with left leg swelling and redness. Patient stated that about 5 days ago she cut her leg while shaving and about 3 days ago she noticed the wound with surrounding redness that is gotten progressively worse. Patient presented to the emergency department in police custody as she was arrested this afternoon but was brought to the hospital for medical clearance. She states that she had a fever yesterday but has been afebrile since, denies any headache, lightheadedness, dizziness, chest pain, nausea vomiting or diarrhea or purulence from wound. In the emergency department the patient was noted as having normal vital signs, normal CBC and CMP however the area of redness was noted to have extended beyond its borders of demarcation while in the emergency department. Patient was given vancomycin and cefepime. She was also noted as having an elevated CRP of 6 and a Pro-Jose Roberto of 0.14. X-ray of the area did not show any acute findings. At which point emergency room physician paged hospitalist for admission for patient with cellulitis requiring IV antibiotic therapy. Review of Systems All systems reviewed & are unremarkable except as noted in HPI and below PFSH All Active Problems (Updated 04/06/25 @ 19:48 by Tosah Brumfield MD) Cellulitis (Acute) Hx of substance abuse (Acute) opiates, cocaine Biliary colic (Acute) Cholelithiasis (Acute) Dysuria (Acute) Osteochondritis dissecans of right talus (Acute) Ovarian cyst (Acute) History of section (Chronic) 03/14/2018 at [facility] [place]. 36w 1d for IUGR and breech presentation. Female weight 4 pounds 7 ounces (2090 g) Hepatitis C virus infection (Acute 04/01/17) Repeat testing 10/14 to determine chronic vs acute Chronic mixed headache syndrome (Acute 09/13/13) Tobacco dependence (Acute 11/28/15) Substance abuse (Acute 06/16/16) opiates, cocaine Depression (Acute 05/06/14) [facility] evderik - Dr Albright 04/10 Hepatitis C carrier (Acute) RNA quant and LFTs done 10/11/18 Medical History Acne ADHD (attention deficit hyperactivity disorder) Anxiety Asthma Depression Depression (05/06/14) Dysuria (08/30/13) Eczema Encounter for insertion of intrauterine contraceptive device (06/07/14) Headache Hip pain (01/10/15) History of asthma (11/28/15) Hx of bipolar disorder Infertility (04/18/17) Inguinal hernia Insomnia Normal first in second trimester (12/13/17) School problem Substance abuse (06/16/16) Clean since 2018 UTI (urinary tract infection) Vision problem Surgical History section (03/14/18) [facility] [place] for IUGR. PC/S for breech presentation. Not a candidate for ECV. Repair of inguinal hernia Repair of umbilical hernia (10/29/16) Tooth extraction Family History Mother Substance abuse Father Substance abuse [place] Substance abuse GRANDPARENT Substance abuse Essential hypertension Depression Heart disease Hyperlipidemia Neoplasm Asthma Social History Smoking/Tobacco Use Status: Current every day Tobacco Type: cigarettes Smoking packs per day: 1 Smoking cigarettes per day: 20.0 Quit status: considering quitting Counseling given: provider counseling Smoking risk assessment performed?: Yes Alcohol Intake: current Alcohol Intake frequency: holidays/special occasions only Drug use: Daily Substance use type: marijuana, crack/cocaine, prescription drug and other Counseling provided: treatment program and other Details: On Suboxone Housing: apartment Do you feel safe at home: Yes Do you feel safe in your relationship?: Yes Female Reproductive History Menstrual control method: none History History 2 2 Para 1 Hx # Term Pregnancies Multiple births Hx # Pregnancies Ectopic pregnancies AB induced Hx Number of Living Children AB spontaneous Meds Allergies and Home Medications Allergies Allergy/AdvReac Type Severity Reaction Status Date / Time adhesive tape Allergy Intermediate Skin Rash/ Unverified 04/06/25 17:27 blisters latex AdvReac Skin Rash Unverified 04/06/25 17:27 Home Medications ?Medication ?Instructions ?Recorded ?Confirmed ?Type clonazepam 0.5 mg tablet 0.5 mg PO DAILY PRN 04/29/22 04/06/25 History gabapentin 600 mg tablet 600 mg PO TID 04/29/22 04/06/25 History lamotrigine 25 mg tablet 25 mg PO TID 04/29/22 04/06/25 History olanzapine 7.5 mg tablet 7.5 mg PO DAILY 04/29/22 04/06/25 History methylphenidate HCl 20 mg tablet 60 mg PO DAILY 04/30/22 04/06/25 History Exam Narrative Exam Narrative: Disheveled appearing young female appears older than stated age laying in bed in no acute distress, ANO x 4, heart regular rhythm, lungs good auscultation bilaterally, abdomen soft, mild tenderness to palpation of the right upper quadrant without rebound or guarding, right lower extremity with erythema now yulisa from previously demarcated areas with significant surrounding swelling Results Labs 04/06/25 18:18 04/06/25 18:18 Labs: Laboratory Results - last 24 hr 04/06/25 18:18 WBC 6.84 RBC 4.69 Hgb 13.7 Hct 40.2 MCV 86 MCH 29.2 MCHC 34.1 RDW 11.7 Plt Count 300 MPV 9.8 Immature Gran % 0.3 Neutrophils % 79.8 Lymphocytes % 13.2 Monocytes % 6.1 Eosinophils % 0.3 Basophils % 0.3 Nucleated RBC % 0.0 Absolute Neutrophils 5.46 Absolute Lymphocytes 0.90 L Absolute Monocytes 0.42 Absolute Eosinophils 0.02 Absolute Basophils 0.02 ESR 21 H PT 10.4 INR 1.0 Sodium 137 Potassium 3.7 Chloride 97 L Carbon Dioxide 31.5 Anion Gap 8.5 BUN 11 Creatinine 0.8 Est GFR (CKD-EPI 2020) 103.50 Glucose 92 Calcium 9.6 Total Bilirubin 0.4 AST 13 L ALT 16 Alkaline Phosphatase 76 C-Reactive Protein 6.00 H Total Protein 9.4 H Albumin 4.2 Procalcitonin 0.14 Serum HCG, Qual Negative Last Vital Signs Temp 98.7 F 04/06/25 17:22 Pulse 85 04/06/25 17:22 Resp 20 04/06/25 17:22 BP 120/86 04/06/25 17:22 Pulse Ox 99 04/06/25 17:22 Time Spent Time spent with Patient: >75 minutes Time was spent: preparing to see the patient(eg.review tests), obtaining and/or reviewing separately otained hiistory, ordering medications,tests, procedures, referring, communicating with other health healthcare consultant, indepentently interpreting results, counseling the patient and care coordination
--- NOTE | 2025-04-06 20:29 | DI.VRAD_ITS ---
PROCEDURE INFORMATION: Exam: XR Left Tibia and Fibula Exam date and time: 04/06/2025 7:06 PM Age: 25 years old Clinical indication: Other: Leg infection TECHNIQUE: Imaging protocol: Radiologic exam of the left tibia and fibula. Views: 2 views. COMPARISON: No relevant prior studies available. FINDINGS: Bones/joints: Frontal and lateral views of the left foreleg reveal no acute fracture or dislocation. No aggressive periosteal reaction or gross focal bony erosions are seen. Soft tissues: There is apparent soft tissue swelling throughout the distal foreleg. Within the limits of the exam, no foci of soft tissue gas are demonstrated. IMPRESSION: Soft tissue swelling. Dictated and Authenticated by: Isai Stern MD. Orderin Octaviano Tan MD
[2025-04-06] MEDS: CEFEPIME 1 GM in Normal Saline 50 ML IVPB (20:33)
--- NOTE | 2025-04-06 21:14 | W.PC.ACHO ---
Registration Status: Primary Language: Preferred Language: ED Information & Data Chief Complaint RashLesion 04/06/25 18:42 Triage Note Swelling, redness, warmth, 04/06/25 17:22 tenderness in L ankle/lower leg related to potential infected wound started as small wound from shaving. PT reports has been getting worse over the past several days. Fever yesterday. Medical / Surgical History (Last Reviewed 06/04/23 @ 19:35 by Paty Paredes MD) Hx of bipolar disorder Substance abuse (06/16/16) History of asthma (11/28/15) Dysuria (08/30/13) Depression (05/06/14) Normal first in second trimester (12/13/17) Infertility (04/18/17) Hip pain (01/10/15) Encounter for insertion of intrauterine contraceptive device (06/07/14) Asthma Inguinal hernia ADHD (attention deficit hyperactivity disorder) School problem Headache Eczema Depression Anxiety Acne Vision problem Insomnia UTI (urinary tract infection) (Last Reviewed 06/04/23 @ 19:35 by Paty Paredes MD) section (03/14/18) Repair of umbilical hernia (10/29/16) Repair of inguinal hernia Tooth extraction Most Recent Vital Signs Temperature 37.1 C 04/06/25 17:22 Pulse 85 04/06/25 17:22 Respiratory Rate 20 04/06/25 17:22 Blood Pressure 120/86 04/06/25 17:22 Blood Pressure Position Sitting 04/06/25 17:22 Pulse Oximetry 99 04/06/25 17:22 Oxygen Delivery Method Room Air 04/06/25 17:22 Oxygen Flow Rate 0 04/06/25 17:22 Allergies adhesive tape Allergy (Intermediate, Unverified 04/06/25 17:27) Skin Rash/ blisters latex Adverse Reaction (Unverified 04/06/25 17:27) Skin Rash Hives in reaction to latex condoms IV IV Catheter Type [Right Upper Peripheral IV arm] IV Catheter Gauge [Right Upper 18 arm] Diagnostics 04/06/25 Range/Units 18:18 WBC 6.84 (4.4-10.8) 10^3/uL RBC 4.69 (3.93-5.22) 10^6/uL Hgb 13.7 (11.2-15.7) g/dL Hct 40.2 (36.0-46.0) % MCV 86 (80-95) fL MCH 29.2 (27.0-33.0) pg MCHC 34.1 (32.0-36.0) % RDW 11.7 (11.7-14.6) % Plt Count 300 (130-400) 10^3/uL MPV 9.8 (8.0-11.0) fL Immature Gran % 0.3 % Neutrophils % 79.8 % Lymphocytes % 13.2 % Monocytes % 6.1 % Eosinophils % 0.3 % Basophils % 0.3 % Nucleated RBC % 0.0 (0.0-0.3) % Absolute Neutrophils 5.46 (1.2-6.7) 10^3/uL Absolute Lymphocytes 0.90 L (1.2-3.4) 10^3/uL Absolute Monocytes 0.42 (0.1-0.8) 10^3/uL Absolute Eosinophils 0.02 (0.0-0.7) 10^3/uL Absolute Basophils 0.02 (0.0-0.2) 10^3/uL ESR 21 H (0-20) mm/hr PT 10.4 (9.1-11.1) sec INR 1.0 (0.9-1.1) Sodium 137 (136-145) mmol/L Potassium 3.7 (3.5-5.1) mmol/L Chloride 97 L (98-107) mmol/L Carbon Dioxide 31.5 (21.0-32.0) mmol/L Anion Gap 8.5 (3-11) mmol/L BUN 11 (7-18) mg/dL Creatinine 0.8 (0.55-1.02) mg/dL Est GFR (CKD-EPI 2020) 103.50 (mL/min/1.73m2) Glucose 92 (74-106) mg/dL Calcium 9.6 (8.5-10.1) mg/dL Total Bilirubin 0.4 (0.2-1.0) mg/dL AST 13 L (15-37) U/L ALT 16 (14-59) U/L Alkaline Phosphatase 76 (46-116) U/L C-Reactive Protein 6.00 H (<or=0.5) mg/dL Total Protein 9.4 H (6.4-8.2) g/dL Albumin 4.2 (3.4-5.0) g/dL Procalcitonin 0.14 ng/mL Serum HCG, Qual Negative 04/06/25 18:18 Blood Culture - Pending Blood Intake and Output - 24 Hour Total 04/06/25 17:14 thru 04/06/25 17:22 Weight 58.967 kg Falls Risk Assessment History of Falls No History 04/06/25 17:26 Contributing Factors No Factors 04/06/25 17:26 Ambulatory Aids Independent 04/06/25 17:26 Tubes/Lines None 04/06/25 17:26 Gait Evaluation No gait disturbance 04/06/25 17:26 Cognition No cognitive impairment 04/06/25 17:26 Fall Total Score 0 04/06/25 17:26 Level of Risk Standard/Low Risk 04/06/25 17:26 Problems (Last Reviewed 06/04/23 @ 19:35 by Paty Paredes MD) Cellulitis (Acute) Hx of substance abuse (Acute) v v v v v v v v v Sending and/or Receiving Nurses: Please use comment section below to note any information pertinent to the patient hand-off not included above. Information / Comments:Pt admit through ED to med/surg for obs. due to cellulitis lft leg, cut while shaving 5 days ago. Closed wound with scab. Pt hx IV drug use in neck. Currently arrested waiting to be medically cleared. DOC officers present for observation. pt being admitted to 216, got report at 204904/06/25. Report received from:Leticia MCCALLUM, ED nurse report received 04/06/25 @ 2049.
[2025-04-06 21:30] VITALS: BP 103/67; PULSE 81; RESP 12; TEMP 37.3; O2SAT 100
[2025-04-06 21:33] VITALS: BP 103/67; PULSE 81; RESP 12; TEMP 37.3; O2SAT 100
[2025-04-06 22:01] VITALS: BP 103/67; PULSE 81; RESP 12; TEMP 37.3; O2SAT 100
[2025-04-06] MEDS: Normal Saline Flush 10 ML SYR IVP ×3 (22:07→23:33)
[2025-04-06] MEDS: lamoTRIgine 25 MG TAB PO (23:32)
[2025-04-06] MEDS: Gabapentin 600 MG TAB PO (23:32)
--- NOTE | 2025-04-07 | DI.CT_ITS ---
Exam(s) CT ABDOMEN PELVIS W EXAM: CT ABDOMEN PELVIS W CLINICAL HISTORY: RUQ pain with palpation. TECHNIQUE: Imaging Protocol: Axial computed tomography images with coronal and sagittal reformatted images were created and reviewed CONTRAST MATERIAL: Intravenous: Omnipaque-350 100cc Oral: Yes. Oral contrast was also administered for bowel opacification. COMPARISON: CT CT ABDOMEN PELVIS W from 08/17/2019 FINDINGS: VISUALIZED LUNG BASES: No nodules nor pleural effusions evident. ABDOMEN: There is no ascites. LIVER: There are no focal hepatic lesions evident. Minimally dilated ducts are noted in the left hep atic lobe in this patient who has had prior cholecystectomy. GALLBLADDER/BILIARY: The gallbladder is surgically absent. The CBD is not dilated. PANCREAS: No evidence of pancreatic mass nor dilatation of the pancreatic duct. SPLEEN: Mild splenomegaly. Craniocaudal measurement of the spleen is 13.4 cm. This has increased in size from the 2019 CT scan. Splenic and portal veins are patent. ADRENALS: There are no significant adrenal masses. KIDNEYS:Left kidney unremarkable. There is mildly heterogeneous enhancement of the right kidney, pos sibly significant. There are no cysts nor solid renal masses. No hydronephrosis. No hydroureter. No solid renal masses. No calculi nor hydronephrosis.. ABDOMINAL AORTA: Abdominal aorta is not enlarged. LYMPH NODES:There is no retroperitoneal nor paraaortic adenopathy. ABDOMINAL WALL: No evidence of significant anterior abdominal wall nor inguinal hernia. GI: There is no evidence of bowel obstruction, free air, nor abscess. PELVIS: GI: No evidence of acute appendicitis.No evidence of sigmoid diverticulitis. LYMPH NODES: There is no intrapelvic nor inguinal adenopathy. REPRODUCTIVE: Uterus and adnexal regions appear unremarkable. There is a small amount of free fluid in the pelvis which is probably female physiologic. URINARY BLADDER: No significant findings. OSSEOUS: No fractures and no significant osseous lesions. IMPRESSION: 1. There is mildly heterogeneous enhancement of the right kidney which may indicate pyelonephritis. There is no evidence of focal renal abscess. No calculi nor hydronephrosis. The opposite-left kidne y appears unremarkable. No abnormalities evident in the urinary bladder. 2. Gallbladder surgically absent. Biliary tree is not significantly dilated. 3. There is mild splenomegaly. Craniocaudal measurement of the spleen is 13.4 cm 4. The small amount of free fluid in the pelvis. RADIATION DOSE DELIVERED: 290.51mGy.cm Total DLP DATA REPOSITORY: All CT scans at this facility are submitted to the National Radiology Data Registry (NRDR) Dose Index Registry (DIR) with the [employer] (A[employer]). RADIATION OPTIMIZATION: All CT scans at this facility use at least one of these dose optimization te chniques: automated exposure control; mA and/or kV adjustment per patient size (includes targeted exa ms where dose is matched to clinical indication); or iterative reconstruction.
[2025-04-07] MEDS: Normal Saline Flush 10 ML SYR IVP ×6 (01:09→20:17)
[2025-04-07] MEDS: VANCOMYCIN/WATER (PEG) 1 GM/200 ML BAG IVPB ×2 (01:09→12:38)
[2025-04-07] MEDS: Acetaminophen 325 MG TAB PO (01:26)
[2025-04-07] MEDS: clonazePAM 0.5 MG TAB PO (01:26)
[2025-04-07] MEDS: CEFEPIME 2 GM in Normal Saline 100 ML IVPB ×2 (04:18→11:54)
[2025-04-07 04:20] VITALS: BP 102/63; PULSE 66; RESP 12; TEMP 36.7; O2SAT 94
[2025-04-07] MEDS: Breeza Beverage 473 ML BTL PO ×2 (07:41→07:42)
[2025-04-07] MEDS: Omnipaque 350 MG/ML 50 ML BTL PO (07:41)
[2025-04-07 07:59] VITALS: BP 115/54; PULSE 79; RESP 16; TEMP 36.8; O2SAT 100
[2025-04-07] MEDS: OLANZapine 2.5 MG TAB 7.5 MG PO (08:51)
[2025-04-07] MEDS: lamoTRIgine 25 MG TAB PO ×2 (08:52→15:08)
[2025-04-07] MEDS: Gabapentin 600 MG TAB PO ×2 (08:52→15:09)
[2025-04-07] MEDS: Omnipaque 350 MG/ML 100 ML BTL IJ (09:11)
[2025-04-07] MEDS: Normal Saline - Diluent 50 ML VIAL IV (09:12)
--- NOTE | 2025-04-07 09:28 | DI.VRAD_ITS ---
Addendum created by Alisa Milton MD on 04/07/2025 9:29:34 AM EDT: THIS REPORT CONTAINS FINDINGS THAT MAY BE CRITICAL TO PATIENT CARE. The findings were verbally communicated via telephone conference with Dr Hubbard at 9:29 AM EDT on 04/07/2025. The findings were acknowledged and understood. Initial report created on 04/07/2025 9:27:41 AM EDT: PROCEDURE INFORMATION: Exam: CT Abdomen And Pelvis With Contrast Exam date and time: 04/07/2025 9:09 AM Age: 25 years old Clinical indication: Abdominal tenderness; Abdominal pain; Localized; Right upper quadrant (ruq); Ruq pain with palpation. ; Additional info: Best images obtained patient was a correctional patient, and was yelling during procedure. Patient refused to drink the po contrast, however not sure how much oral contrast patient drank. TECHNIQUE: Imaging protocol: Computed tomography of the abdomen and pelvis with contrast. Radiation optimization: All CT scans at this facility use at least one of these dose optimization techniques: automated exposure control; mA and/or kV adjustment per patient size (includes targeted exams where dose is matched to clinical indication); or iterative reconstruction. Contrast material: OMNIPAQUE 350; Contrast volume: 70 ml; Contrast route: INTRAVENOUS (IV); Other contrast: Oral, omnipaque 350 and [place]ree[place], 968; COMPARISON: CT ABDOMEN PELVIS W 08/17/2019 8:46 PM FINDINGS: Liver: Hepatomegaly 21 cm Gallbladder and biliary ducts: Cholecystectomy Pancreas: Normal. No ductal dilation. Spleen: Normal. No splenomegaly. Adrenal glands: Normal. No mass. Kidneys and ureters: Mild patchy attenuation throughout the right kidney may represent pyelonephritis.. Stomach and bowel: Unremarkable. No obstruction. No mucosal thickening. Appendix: Normal appendix series 9, image 56 -58 Intraperitoneal space: Mild amount of free fluid in the pelvis. Vasculature: Unremarkable. No abdominal aortic aneurysm. Lymph nodes: Unremarkable. No enlarged lymph nodes. Urinary bladder: Unremarkable as visualized. Reproductive: Unremarkable as visualized. Bones/joints: Unremarkable. No acute fracture. Soft tissues: Unremarkable. IMPRESSION: 1. Mild patchy attenuation throughout the right kidney may represent pyelonephritis.. 2. Mild amount of free fluid in the pelvis. Dictated and Authenticated by: Alisa Milton MD. Orderin Sandra Diehl MD
--- NOTE | 2025-04-07 11:21 | INITIAL_ITS ---
Date of service: 04/07/25 Time of Service: 11:21 Care Management Initial Assmt Initial Assessment Reason for Hospitalization: LLE cellulitis Functional Status/Living Situation Patient Presentation: Marlo presented to the ED yesterday evening with c/o left leg swelling and redness. She had cut her leg, shaving, 5 days prior. She reported that 2 days later she noticed redness and swelling, which have progressed rapidly. Marlo presented to the ED in police custody. She had been arrested prior in the day, and not accepted at the senior living due to her wound. Marlo has been sleeping each of 3 times that CM checked on her today. Her sitter stated that she has been sleeping all day. All information in this note has been gathered from the chart. Town of Residence: [facility]. Significant Other/Family: Local (Sbilings Anastasia and Peterson, Aunt Jeannette, and girlfriend, Alee) Instrumental Activities of Daily Living (ADLs): Independent Advance Directives Advance Directives: Do you have an Advance Directive: N 04/30/22 09:39 AD On File at [facility]: N 04/30/22 09:39 Date Asked 04/06/25 04/06/25 18:02 AD Date Reviewed COLST On File at [facility] No 04/06/25 18:02 COLST Date Scanned Code Status Resuscitation Status Full Code Insurance Coverage/Financial Issues Insurance: Medicare Part A & B - Medicaid of [place]? Care Team Visit Care Team Role Provider Type Watson Hubbard MD [facility] STAFF PHYSICIAN None None Primary Care Provider NON-[facility] STAFF PHYSICIAN Tosha Brumfield MD Emergency Provider [facility] STAFF PHYSICIAN Fazal Flores MD Admit Provider [facility] STAFF PHYSICIAN Attending Provider Discharge Potential Discharge Needs: Other (f/u with corrections provider) Anticipated Barriers to Discharge: None Identified Patient/Family Education Needs: Review discharge instructions, discuss Ask Me Three Transportation: Facility Transport Plan: Anticipate that Marlo will discharge to the corrections facility once medically stable. CM will coordinate discharge with the facility. Marlo will transport via the corrections facility transport and f/u with their provider. CM will continue to follow. Social Determinants of Health Screening Will the Patient Participate in the Screening?: Declined to provide PFSH All Active Problems (Updated 04/07/25 @ 15:57 by Watson Hubbard) DVT prophylaxis (Acute) Pyelonephritis (Acute) Cellulitis (Acute) Hx of substance abuse (Acute) opiates, cocaine Biliary colic (Acute) Cholelithiasis (Acute) Dysuria (Acute) Osteochondritis dissecans of right talus (Acute) Ovarian cyst (Acute) History of section (Chronic) [place] [facility] [place] 36w 1d for IUGR and breech presentation. Female weight 4 pounds 7 ounces (2090 g) Hepatitis C virus infection (Acute 04/01/17) Repeat testing 10/14 to determine chronic vs acute Chronic mixed headache syndrome (Acute 09/13/13) Tobacco dependence (Acute 11/28/15) Substance abuse (Acute 06/16/16) opiates, cocaine Depression (Acute 05/06/14) [facility] nabor - Dr Albright 04/10 Hepatitis C carrier (Acute) RNA quant and LFTs done 10/11/18 Medical History Acne ADHD (attention deficit hyperactivity disorder) Anxiety Asthma Depression Depression (05/06/14) Dysuria (08/30/13) Eczema Encounter for insertion of intrauterine contraceptive device (06/07/14) Headache Hip pain (01/10/15) History of asthma (11/28/15) Hx of bipolar disorder Infertility (04/18/17) Inguinal hernia Insomnia Normal first in second trimester (12/13/17) School problem Substance abuse (06/16/16) Clean since 2017 UTI (urinary tract infection) Vision problem Surgical History section (03/14/18[place] [facility] [place] PC/S for breech presentation. Not a candidate for ECV. Repair of inguinal hernia Repair of umbilical hernia (10/29/16) Tooth extraction Family History Mother Substance abuse Father Substance abuse [place] Substance abuse GRANDPARENT Substance abuse Essential hypertension Depression Heart disease Hyperlipidemia Neoplasm Asthma Social History Smoking/Tobacco Use Status: Current every day Tobacco Type: cigarettes Smoking packs per day: 1 Smoking cigarettes per day: 20.0 Quit status: considering quitting Counseling given: provider counseling Smoking risk assessment performed?: Yes Alcohol Intake: current Alcohol Intake frequency: holidays/special occasions only Drug use: Daily Substance use type: marijuana, crack/cocaine, prescription drug and other Counseling provided: treatment program and other Details: On Suboxone Housing: apartment Do you feel safe at home: Yes Do you feel safe in your relationship?: Yes Female Reproductive History Menstrual control method: none History History 2 Para 1 Hx # Term Pregnancies Multiple births Hx # Pregnancies Ectopic pregnancies AB induced Hx Number of Living Children AB spontaneous Readmission Within the Past 30 Days Yes or No: No
--- NOTE | 2025-04-07 11:30 | RT.EKG_ITS ---
APPROVED REPORT Exam: Resting ECG Reason for Exam: QTc check Patient Location: I HR:74 bpm ECG Measurements Heart Rate 74 AXIS AL 119 P 68 QRSd 90 QRS 74 QT 402 T 59 QTc 446 Conclusion Sinus rhythm...normal P axis, V-rate 50- 99 Borderline short AL interval...AL int <120mS Probable left atrial enlargement...P >50mS, <-0.10mV V1
[2025-04-07 11:37] VITALS: BP 96/68; PULSE 74; RESP 17; TEMP 37.2; O2SAT 100
--- NOTE | 2025-04-07 15:00 | W.PM.PROGNOT ---
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 - She was started on Vanco and cefepime due to h/o IVDU. We can change cefepime to ceftriaxone as no significant concern for pseudomonas. Also covering possible pyelonephritis per CT. - Area was without fluctuance and x-ray of the area did not show any acute findings, less likely staph or gas forming bacteria. - Improving clinically 04/07 (2) Hx of bipolar disorder: Assessment and plan: - Per pharmacy records it appears she has not been filling lamictal 25mg TID, olanzapine 7.5mg daily, gabapenint, methylfenidate, or clonezepam. - Will limit lamotrigine to just 25mg daily to avoid risk of SJS a/w resuming at higher dose if she has been off - Will not continue methylfenidate, gabapentin, or clonezepam in setting of ongoing polysusbstance abuse. (3) Hx of substance abuse: Status: Acute Assessment and plan: she feels like she is getting opioid withdrawal but also still sedated as well. Suspect polysubstance use with sedating and stimulating medications. UDS not done on admission, send now with fentanyl screen. PRN hydromorphone at relatively high dose for now. EKG for QTc screen in case we start methadone. I would like to confirm she will be able to continue treatment with [facility] upon discharge (and possilbe incarceration) before we start this. (4) Pyelonephritis: Status: Acute Assessment and plan: CT concerning for pyelonephritis, which could explain her right sided abdominal pain. Current antibiotics provide good coverage, changing from cefepime to ceftriaxone. We don't have a urine, get u/a. Also need test. (5) Tobacco dependence: Status: Acute Assessment and plan: Nicotene prn, has adhesive reaction, can use gum if she likes. (6) DVT prophylaxis: Status: Acute Assessment and plan: enoxaparin Subjective Subjective Patient reports: tolerating a regular diet (eating a little) and nausea; denies vomiting, shortness of breath or fever Interval history since last seen: She feels pain all over. She states she is getting withdrawal. She doesn't respond with specifics when asked about her recent drug use. She does say that she can't take suboxone because it makes her sick but she would like to go back on methadone. States she was previously at [facility] in [facility] and took 100mg of methadone but she has not been going there recently. Exam Narrative Exam Narrative: Disheveled appearing young female laying in bed in mild distress with some moaning and restless legs, but then nodding off, ANO x 4, heart regular rhythm, lungs good auscultation bilaterally, abdomen soft, mild tenderness to palpation of the right upper quadrant without rebound or guarding, left lower extremity with erythema now not reaching previously demarcated areas with significant surrounding swelling, dry scabbed ulceration in area but no pus, discharge or fluctuant areas. Objective Last Vital Signs Temp 37.2 C 04/07/25 11:37 Pulse 74 04/07/25 11:37 Resp 17 04/07/25 11:37 BP 96/68 L 04/07/25 11:37 Pulse Ox 100 04/07/25 11:37 Laboratory Results - last 24 hr 04/06/25 18:18 WBC 6.84 RBC 4.69 Hgb 13.7 Hct 40.2 MCV 86 MCH 29.2 MCHC 34.1 RDW 11.7 Plt Count 300 MPV 9.8 Immature Gran % 0.3 Neutrophils % 79.8 Lymphocytes % 13.2 Monocytes % 6.1 Eosinophils % 0.3 Basophils % 0.3 Nucleated RBC % 0.0 Absolute Neutrophils 5.46 Absolute Lymphocytes 0.90 L Absolute Monocytes 0.42 Absolute Eosinophils 0.02 Absolute Basophils 0.02 ESR 21 H PT 10.4 INR 1.0 Sodium 137 Potassium 3.7 Chloride 97 L Carbon Dioxide 31.5 Anion Gap 8.5 BUN 11 Creatinine 0.8 Est GFR (CKD-EPI 2020) 103.50 Glucose 92 Calcium 9.6 Total Bilirubin 0.4 AST 13 L ALT 16 Alkaline Phosphatase 76 C-Reactive Protein 6.00 H Total Protein 9.4 H Albumin 4.2 Procalcitonin 0.14 Serum HCG, Qual Negative Objective Narrative Objective Narrative: EKG: NSR, nl axis, intervals. QTc 446. Time Spent with Patient Time Spent with Patient: >50 minutes Time was spent: preparing to see the patient(eg.review tests), obtaining and/or reviewing separately otained hiistory, ordering medications,tests, procedures, referring, communicating with other health career based intervention coordinator, indepentently interpreting results, counseling the patient and care coordination
[2025-04-07 15:17] VITALS: BP 96/61; PULSE 80; RESP 16; TEMP 37.1; O2SAT 100
[2025-04-07] MEDS: Enoxaparin 40 MG/0.4 ML SYR SC (17:29)
[2025-04-07 17:49] LABS: Bilirubin Negative (Negative); Blood Negative (Negative); Clarity Clear (Clear); Glucose Negative (Negative); Ketones Negative (Negative); Leukocyte Esterase Small (Negative); Nitrite Negative (Negative); Specific Gravity 1.015 (1.005-1.025); Urobilinogen 0.2 mg/dL (Up to 0.2); pH 7.5 (5-8)
[2025-04-07 18:08] LABS: Bacteria Rare HPF (Negative); C & S Indicated? No; Crystals Negative HPF (Negative); Epithelial Cells Many HPF (Negative); Mucus Negative (Negative)
[2025-04-07 19:13] LABS: *AMPHETAMINES SCREEN URINE Negative (Negative); *BARBITURATES SCREEN URINE Negative (Negative); *BENZODIAZEPINES SCREEN URINE Negative (Negative); Cannabinoids THC Negative (Negative); Cocaine Screen,Urine Positive (Negative); METHADONE URINE SCREEN Negative (Negative); OPIATES URINE SCREEN Negative (Negative)
[2025-04-07 19:18] LABS: Tricyclic Antidepressants Negative (Negative)
[2025-04-07] MEDS: cefTRIAXone 2 GM/50 ML BAG IVPB (20:16)
[2025-04-07] MEDS: HYDROmorphone 4 MG TAB PO (20:16)
[2025-04-08] MEDS: Acetaminophen 325 MG TAB PO ×2 (00:57→18:04)
[2025-04-08] MEDS: HYDROmorphone 4 MG TAB PO ×6 (00:57→20:30)
[2025-04-08] MEDS: clonazePAM 0.5 MG TAB PO ×2 (00:58→08:28)
[2025-04-08] MEDS: VANCOMYCIN/WATER (PEG) 1 GM/200 ML BAG IVPB ×3 (00:59→23:47)
[2025-04-08] MEDS: Normal Saline Flush 10 ML SYR IVP ×5 (01:02→23:49)
[2025-04-08 08:05] VITALS: BP 103/68; PULSE 104; RESP 18; TEMP 37.2; O2SAT 99
[2025-04-08] MEDS: OLANZapine 2.5 MG TAB 7.5 MG PO (08:28)
[2025-04-08 08:29] VITALS: TEMP 37.2
[2025-04-08] MEDS: lamoTRIgine 25 MG TAB PO (08:29)
[2025-04-08] MEDS: Nicotine 2 MG GUM CH ×4 (08:37→20:30)
--- NOTE | 2025-04-08 10:12 | CMPROGNOTE_ITS ---
Date of service: 04/08/25 Care Management Progress Note Progress Note Text Progress Note Text: Marlo was sitting up in bed when CM arrived. She was accompanied by a home lending officer in her room at this time. Per Marlo, she has a court hearing today which would determine her release. The hearing did not happen because the court wouldn't to see her due to being hospitalized; per facility the court would reschedule her hearing's date, post hospitalization, confirmed by Paula Dickerson ([facility] Ceramic Engineering Professor - [phone]). Marlo states that she does not want to leave AMA but needs to be discharged by tomorrow morning, she states that they will give her a court date tomorrow if she is d/c. CM and RN communicated this with the provider. Per Paula, if she was to leave AMA the facility would send her back to the hospital. When CM and nursing went in her room to deliver this information, Marlo stated that she is frustrated and began to escalate. CM will continue to follow. Discharge Potential Discharge Needs: PCP F/U Appt Anticipated Barriers to Discharge: None Identified Patient/Family Education Needs: Review discharge instructions, discuss Ask Me Three Transportation: Facility Transport ([facility] facility transport ) Plan: Anticipate Marlo will be discharged to [facility] once medically ready. She will follow up with the facilty providers and continue per her plan of care. Marlo will be transported via [facility] vehicle by staff. CM will continue to follow. Social Determinants of Health Screening Will the Patient Participate in the Screening?: Declined to provide
[2025-04-08 11:18] VITALS: BP 117/80; PULSE 95; RESP 18; TEMP 37.7; O2SAT 100
[2025-04-08] MEDS: cloNIDine 0.1 MG TAB PO ×2 (12:17→18:10)
[2025-04-08] MEDS: metroNIDAZOLE 500 MG TAB PO ×2 (13:34→19:54)
[2025-04-08] MEDS: Nicotine 21 MG/24 HR PATCH TD (15:52)
[2025-04-08] MEDS: Enoxaparin 40 MG/0.4 ML SYR SC (15:52)
[2025-04-08 16:09] VITALS: BP 108/72; PULSE 81; RESP 18; TEMP 37.4; O2SAT 98
--- NOTE | 2025-04-08 16:48 | W.PM.PROGNOT ---
Date of Service Date of service: 04/08/25 Time of Service: 16:48 Assessment and Plan Assessment and plan (1) Cellulitis: Status: Acute Assessment and plan: - Presented after experiencing worsening wound and cellulitis on the left lower extremity after cutting herself while shaving, but h/o IVDU. No sepsis on admission. - Initial rapid progression of cellulitis in emergency department, so IV therapy indicated. - She was started on Vanco and cefepime due to h/o IVDU. Changed cefepime to ceftriaxone as no significant concern for pseudomonas. Also covering possible pyelonephritis per CT. - Area was without fluctuance and x-ray of the area did not show any acute findings, less likely staph or gas forming bacteria. - Improving clinically 04/08, can transition to oral therapy likely 04/09 (2) infection, trichomonal: Status: Acute Assessment and plan: Noted on u/a, start metronidazole orally, 500mg BID for 1 week. Send chlamydia/GC. Also RPR and HIV in am. She has known HCV. Partners should be treated but she wasn't able to give me this information today. (3) Hx of bipolar disorder: Assessment and plan: - Per pharmacy records it appears she has not been filling lamictal 25mg TID, olanzapine 7.5mg daily, gabapenint, methylfenidate, or clonezepam. - Will limit lamotrigine to just 25mg daily to avoid risk of SJS a/w resuming at higher dose if she has been off - Will not continue methylfenidate, gabapentin, or clonezepam in setting of ongoing polysusbstance abuse. She is asking about these medication but they do not appear to be contributing to stability or health right at this point. (4) Hx of substance abuse: Status: Acute Assessment and plan: - Pain/opioid withdrawal improved with hydromorphone. Suspect polysubstance use with sedating and stimulating medications. UDS with cocaine, likely mixed with fentanyl or derivatives. Fentanyl screen pending. EKG for QTc screenokay to start methadone, but per corrections this is not an option for her. I offered low dose buprenorphine induction with hydromorphone, but she declined. Unfortunately if she doesn't use this she will withdrawal in snf. 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 U/a minimally abnormal but had been on antibiotcs. Continue ceftriaxone. (6) Tobacco dependence: Status: Acute Assessment and plan: Nicotene prn, h/o adhesive reaction but wants to try patch (7) DVT prophylaxis: Status: Acute Assessment and plan: enoxaparin Subjective Subjective Patient reports: voiding w/o difficulty; denies diarrhea, nausea, vomiting, shortness of breath or fever Interval history since last seen: 24hr: Patient upset after discovering she couldnt' do her court arraignment via zoom. Will need to be rescheduled. General pain is better with hydromorphone. She feels less agitated. Her leg feels better but still hurts some to move. Abdomen still hurts some, perhaps slightly better. only mild burning with urination. Exam Narrative Exam Narrative: Disheveled appearing young female sitting up in bed with no distress, ANO x 4. Pupils mid sized. Some yawning. heart regular rhythm, lungs good auscultation bilaterally, abdomen soft, mild tenderness to deep palpation of the right abdomen t without rebound or guarding, left lower extremity with only faint erythema not reaching previously demarcated areas with minimal swelling, dry scabbed ulceration in area but no pus, discharge or fluctuant areas. Objective Last Vital Signs Temp 37.4 C 04/08/25 16:09 Pulse 81 04/08/25 16:09 Resp 18 04/08/25 16:09 BP 108/72 04/08/25 16:09 Pulse Ox 98 04/08/25 16:09 Laboratory Results - last 24 hr 04/07/25 04/07/25 04/08/25 05:35 17:35 13:49 WBC Cancelled RBC Cancelled Hgb Cancelled Hct Cancelled MCV Cancelled MCH Cancelled MCHC Cancelled RDW Cancelled Plt Count Cancelled MPV Cancelled Sodium Cancelled Potassium Cancelled Chloride Cancelled Carbon Dioxide Cancelled Anion Gap Cancelled BUN Cancelled Creatinine Cancelled Est GFR (CKD-EPI 2020) Cancelled Glucose Cancelled Calcium Cancelled Magnesium Cancelled Urine Color Yellow Urine Clarity Clear Urine pH 7.5 Ur Specific [place] 1.015 Urine Protein Negative Urine Ketones Negative Urine Blood Negative Urine Nitrite Negative Urine Bilirubin Negative Urine Urobilinogen 0.2 Ur Leukocyte Esterase Small H Urine RBC 3-5 H Urine WBC 3-5 Ur Epithelial Cells Many Urine Crystals Negative Urine Bacteria Rare Urine Mucus Negative Urine Other Rare Trichomonas Ur Culture Indicated? No Urine Glucose Negative Urine Opiates Screen Negative Urine Methadone Screen Negative Ur Barbiturates Screen Negative Ur Tricyclics Screen Negative Ur Amphetamines Screen Negative U Benzodiazepines Scrn Negative Urine Cocaine Screen Positive A Ur THC Screen Negative Chlamydia DNA Probe Cancelled Chlamydia/GC DNA Source Cancelled N.gonorrhoeae DNA Probe Cancelled Time Spent with Patient Time Spent with Patient: >50 minutes Time was spent: preparing to see the patient(eg.review tests), obtaining and/or reviewing separately otained hiistory, ordering medications,tests, procedures, referring, communicating with other health manager critical care unit, indepentently interpreting results, counseling the patient and care coordination
[2025-04-08 19:23] VITALS: BP 105/73; PULSE 91; RESP 22; TEMP 36.9; O2SAT 100
[2025-04-08] MEDS: cefTRIAXone 2 GM/50 ML BAG IVPB (19:54)
[2025-04-09 00:11] VITALS: BP 120/96; PULSE 69; RESP 16; TEMP 36.3; O2SAT 100
[2025-04-09] MEDS: HYDROmorphone 4 MG TAB PO ×3 (00:12→07:33)
--- NOTE | 2025-04-09 04:44 | NUR.NOTE ---
Nursing Note: This nurse answered call light of this patient. Patient demanding to see a doctor right now. This nurse inquired about what the patient needed from the doctor and the patient reported that she needed to discuss being discharged this morning. This nurse informed patient that the hospitalist that discusses discharge planning would be back later this morning. Patient became angry and agitated at this information and demanded to know the exact time the doctor would arrive. This nurse informed the patient about the general schedule of the hospitalist and told the patient that this nurse would report off to the oncoming shift the desire of the patient to discuss discharge planning with the hospitalist as soon as possible this morning. Patient again became angry stating she demanded to see the doctor immediately. This nurse reported this information to the patient's primary nurse.
[2025-04-09 07:29] LABS: Anion Gap 4.4 mmol/L (3-11); BUN 8 mg/dL (7-18); CO2 29.6 mmol/L (21.0-32.0); CREATININE 0.7 mg/dL (0.55-1.02); Chloride 108 mmol/L (98-107); Estimated GFR 121.49 (mL/min/1.73m2); Glucose 71 mg/dL (74-106); Sodium 142 mmol/L (136-145)
[2025-04-09 07:31] VITALS: BP 122/96; PULSE 85; RESP 18; TEMP 37.6; O2SAT 100
[2025-04-09] MEDS: lamoTRIgine 25 MG TAB PO (07:32)
[2025-04-09] MEDS: OLANZapine 2.5 MG TAB 7.5 MG PO (07:33)
[2025-04-09] MEDS: metroNIDAZOLE 500 MG TAB PO (07:33)
[2025-04-09] MEDS: Normal Saline Flush 10 ML SYR IVP (07:34)
[2025-04-09] MEDS: Nicotine 2 MG GUM CH (07:36)
[2025-04-09] MEDS: Sulfameth/Trimeth DS TAB 1 TAB PO (09:06)
--- NOTE | 2025-04-09 09:08 | W.PM.DS.N ---
Date of service: 04/09/25 Time of Service: 09:08 DS: Diagnosis Discharge Diagnosis (1) Cellulitis: Status: Acute (2) infection, trichomonal: Status: Acute (3) Hx of bipolar disorder: (4) Hx of substance abuse: Status: Acute (5) Pyelonephritis: Status: Acute (6) Tobacco dependence: Status: Acute (7) DVT prophylaxis: Status: Acute Discharge Plan Disposition [facility] [place] Condition: Improving Discharge Details Reason For Visit: LLE cellulitis Admit Date/Time: 04/06/25 19:52 Admit Provider: Fazal Flores Attending Provider: Fazal Flores Primary Care Provider: None,None Hospital Course Hospital Course: 25-year-old female with a past medical history of hepatitis C, IV drug use, polysubstance use, and bipolar who presented to the emergency department with left leg swelling and redness. She was diagnosed with cellulitis and treated with cefepime and vancomycin. Cefemepime was transitioned to ceftriaxone along with the vancomycin on 04/07. Her leg infection continued to improve and the redness was minimal at the time of discharge. She was sent home with 5 more days of Bactrim to cover the cellulitis and possible kidney infection. She also had RUQ pain and tenderness during her admission. CT A/P w/ read below: 1. There is mildly heterogeneous enhancement of the right kidney which may indicate pyelonephritis. There is no evidence of focal renal abscess. No calculi nor hydronephrosis. The opposite-left kidney appears unremarkable. No abnormalities evident in the urinary bladder. 2. Gallbladder surgically absent. Biliary tree is not significantly dilated. 3. There is mild splenomegaly. Craniocaudal measurement of the spleen is 13.4 cm 4. The small amount of free fluid in the pelvis. Urinalysis only showed 3-5 WBC but she was already on antibiotics when this was done. She did not have significant urinary symptoms. 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 She was treated with metronidazole 500mg BID x 7 days along with the Bactrim. It is possilbe that trichmoniasis was causing PID, but it does not generally cause pyelonephritis. Her tenderness improved during her hospitalization. If metrodinadole doesn't clear the trichamonas, single dose tinidazole 2g may be an option. STD screen including HIV, RPR, and GC/Chl was sent and was pending at time of discharge. She had generalized body pain and signs of opioid withdrawal over the first day of admission. This was treated with hydromorphone orally. She declined buprenorphine stating this didn't work for her. She desires methadone treatment, which would be the appropriate standard of care for opioid use disorder, but per corrections this would not be an option upon discharge to their custody. She would like to re-establish with [facility] upon her release. Several psychiatric medications were on her list on admission, but without recent fills at outpatient pharmacies. Given uncertain adherence, lamotrigine was dosed at 25mg. This should be titrated back up to 100-200mg/day at 25 mg increments every 2 weeks. Gabapentin, clonezepam, and methylfenidate were not continued given her unstable polysubstance use disorder. PCP follow up: Treatment coordination for opioid use disorder Mental health treatment, titration of lamotrigine Pending STI screening results Repeat trichamoniasis screening in 3 months Home Meds and New Rx's Prescriptions: New metronidazole 500 mg Tablet 500 mg PO BID 6 Days Qty: 12 0RF sulfamethoxazole-trimethoprim 800-160 mg Tablet 1 tab PO BID 5 Days Qty: 10 0RF Continued olanzapine 7.5 mg tablet 7.5 mg PO DAILY Changed lamotrigine 25 mg tablet 25 mg PO DAILY Qty: 0 0RF Discontinued clonazepam 0.5 mg tablet 0.5 mg PO DAILY PRN gabapentin 600 mg tablet 600 mg PO TID methylphenidate HCl 20 mg tablet 60 mg PO DAILY Discharge Instructions Additional Instructions: take the metronidazole for 6 more days starting this evening. All recent sexual partners need to be treated for this PAULINO. take the sulfamethoxazole/trimethoprim for 5 more days starting this evening. Stand Alone Forms: Nursing Discharge Form Activity:: Activity as Tolerated Equipment/Supplies:: No Equipment Needed Diet:: As Tolerated Discharge Orders Discharge Orders: Discharge Order (Routine); Ordered 04/09/25 Ordered By: Watson Hubbard DS: Summary Time Spent with Patient providing and/or coordinating discharge services: Greater than 30 minutes Status at Discharge Functional status at discharge: independent ambulation Overall status at discharge: patient is progressing back to baseline Mental Status: mental status grossly normal Speech and Movement: speech and movement normal Mood: congruent mood Affect: normal affect Quality:SDOH Health Related Social Needs: No Data to Display Exam Narrative Exam Narrative: Disheveled appearing young female sitting up in bed with no distress, ANO x 4. Pupils mid sized. heart regular rhythm, lungs good auscultation bilaterally, abdomen soft, very slight tenderness to deep palpation of the right abdomen without rebound or guarding, left lower extremity with very faint erythema not reaching previously demarcated areas with minimal swelling, dry scabbed ulceration in area but no pus, discharge or fluctuant areas. Psych Mental Status: mental status grossly normal Speech and Movement: speech and movement normal Mood: congruent mood Affect: normal affect DS: Data Vitals/I&O Vitals and I&O: Vital Signs Temperature 37.6 C H 04/09/25 07:31 Temperature Source Temporal Artery Scan 04/09/25 07:31 Pulse 85 04/09/25 07:31 Pulse Rhythm Regular 04/06/25 21:33 Respiratory Rate 18 04/09/25 07:31 Respiratory Effort Normal 04/06/25 21:33 Respiratory Depth Normal 04/06/25 21:33 Respiratory Pattern Normal 04/06/25 21:33 Blood Pressure 122/96 H 04/09/25 07:31 Blood Pressure Mean 104 04/09/25 07:31 Blood Pressure Position Sitting 04/06/25 17:22 Pulse Oximetry 100 04/09/25 07:31 Oxygen Delivery Method Room Air 04/09/25 07:31 Oxygen Flow Rate 0 04/09/25 07:31 Pain Level 2 04/08/25 19:23 Comment rn notified 04/09/25 07:31 Intake & Output 04/08/25 04/08/25 04/09/25 11:59 23:59 11:59 Intake Total 610 / 1095 485 / 1095 425 / 425 Output Total 600 / 600 Balance 10 / 495 485 / 495 425 / 425 Intake: IV 210 / 475 265 / 475 205 / 205 Oral 400 / 620 220 / 620 220 / 220 Output: Urine 600 / 600 Other: Urine Color Pale Urine Appearance Clear Urine Odor Normal Comment pT stated she voided pt voids independently Data Completed and Pending Labs on day of discharge: Labs from last 24 hours 04/09/25 10:00: Vancomycin Trough Cancelled 04/09/25 06:47: Sodium 142, Potassium 4.0, Chloride 108 H, Carbon Dioxide 29.6, Anion Gap 4.4, BUN 8, Creatinine 0.7, Est GFR (CKD-EPI 2020) 121.49, Glucose 71 L, Calcium 9.0, Syphilis Serology Pending, HIV 1&2 Ag/Ab, 4th Gen Pending, Miscellaneous Test Cancelled 04/08/25 22:00: Creatinine Cancelled, Est GFR (CKD-EPI 2020) Cancelled, Vancomycin Trough Cancelled 04/08/25 15:45: Chlamydia DNA Probe Pending, Chlamydia/GC DNA Source Pending, N.gonorrhoeae DNA Probe Pending 04/08/25 13:49: Chlamydia DNA Probe Cancelled, Chlamydia/GC DNA Source Cancelled, N.gonorrhoeae DNA Probe Cancelled Preliminary micro results at discharge 04/06/25 18:18 Blood Blood Culture - Preliminary NO GROWTH 48 HOURS PFSH All Active Problems (Updated 04/08/25 @ 16:52 by Watson Hubbard) infection, trichomonal (Acute) DVT prophylaxis (Acute) Pyelonephritis (Acute) Cellulitis (Acute) Hx of substance abuse (Acute) opiates, cocaine Biliary colic (Acute) Cholelithiasis (Acute) Dysuria (Acute) Osteochondritis dissecans of right talus (Acute) Ovarian cyst (Acute) History of section (Chronic) 03/14/2018 at [facility]. 36w 1d for IUGR and breech presentation. Female weight 4 pounds 7 ounces (2090 g) Hepatitis C virus infection (Acute 04/01/17) Repeat testing 10/14 to determine chronic vs acute Chronic mixed headache syndrome (Acute 09/13/13) Tobacco dependence (Acute 11/28/15) Substance abuse (Acute 06/16/16) opiates, cocaine Depression (Acute 05/06/14) [facility] - Dr Albright 04/10 Hepatitis C carrier (Acute) RNA quant and LFTs done 10/11/18 Medical History Acne ADHD (attention deficit hyperactivity disorder) Anxiety Asthma Depression Depression (05/06/14) Dysuria (08/30/13) Eczema Encounter for insertion of intrauterine contraceptive device (06/07/14) Headache Hip pain (01/10/15) History of asthma (11/28/15) Hx of bipolar disorder Infertility (04/18/17) Inguinal hernia Insomnia Normal first in second trimester (12/13/17) School problem Substance abuse (06/16/16) Clean since 2018 UTI (urinary tract infection) Vision problem Surgical History section (03/14/18) [facility] for IUGR. PC/S for breech presentation. Not a candidate for ECV. Repair of inguinal hernia Repair of umbilical hernia (10/29/16) Tooth extraction Family History Mother Substance abuse Father Substance abuse [place] Substance abuse GRANDPARENT Substance abuse Essential hypertension Depression Heart disease Hyperlipidemia Neoplasm Asthma Social History Smoking/Tobacco Use Status: Current every day Tobacco Type: cigarettes Smoking packs per day: 1 Smoking cigarettes per day: 20.0 Quit status: considering quitting Counseling given: provider counseling Smoking risk assessment performed?: Yes Alcohol Intake: current Alcohol Intake frequency: holidays/special occasions only Drug use: Daily Substance use type: marijuana, crack/cocaine, prescription drug and other Counseling provided: treatment program and other Details: On Suboxone Housing: apartment Do you feel safe at home: Yes Do you feel safe in your relationship?: Yes Female Reproductive History Menstrual control method: none History History 2 Para 1 Hx # Term Pregnancies Multiple births Hx # Pregnancies Ectopic pregnancies AB induced Hx Number of Living Children AB spontaneous Time Spent with Patient Time Spent with Patient: <45 minutes Time was spent: preparing to see the patient(eg.review tests), obtaining and/or reviewing separately otained hiistory, ordering medications,tests, procedures, referring, communicating with other health critical care technician, indepentently interpreting results, counseling the patient and care coordination
--- NOTE | 2025-04-09 09:58 | PDOC.CMDIS ---
Date of service: 04/09/25 Time of Service: 09:58 LACE Index Scoring Tool Questions: Length of Stay (in days): 3 Was the patient admitted via the E.D.?: Yes E.D. Visits: 1 Answers: Total Score: 7 Risk of Readmission: Low Risk Care Management Discharge Plan Reason for Hospitalization: LLE Cellulitis Discharge Plan: Marlo will be discharged to [facility]. She will follow up with the facility providers and continue per her plan of care as directed. Marlo will be transported via [facility] vehicle by staff. Patient/Family Education Needs: Review of discharge instructions, activity, limitation, and plan of care. Discuss Ask Me Three. SDOH Health Related Social Needs: No Data to Display
[2025-04-09 12:24] LABS: Fentanyl Scr w/Rfx Confirm Positive ng/mL (<1)
[2025-04-10 09:49] LABS: Syphilis Serology (RPR) Negative (Negative)
[2025-04-10 11:56] LABS: Fentanyl Confirmation 10 ng/mL (<2); Norfentanyl Confirmation >200 ng/mL (<10)
[2025-04-10 12:28] LABS: HIV-1/2 Ag & Ab Screen Negative (Negative)
[2025-04-10 12:54] LABS: GC Result Negative (Negative)
[2025-04-10 14:29] LABS: Chlamydia Result Positive (Negative)
== END 2025-04-09 09:37 | DRG 603 ==
LOC: ER 20:13 → MS 21:30
PROVIDERS: Admitting Provider Family Medicine; Emergency Provider Emergency Medicine; Responsible Provider Family Medicine; Visit Provider Family Medicine
DX: L03.116 Cellulitis of left lower limb (principal); Z59.00 Homelessness unspecified; N10 Acute pyelonephritis; F11.13 Opioid abuse with withdrawal; F14.10 Cocaine abuse, uncomplicated; F17.210 Nicotine dependence, cigarettes, uncomplicated; G44.89 Other headache syndrome; F90.9 Attention-deficit hyperactivity disorder, unspecified type; G47.00 Insomnia, unspecified; J45.909 Unspecified asthma, uncomplicated; F41.9 Anxiety disorder, unspecified; F31.9 Bipolar disorder, unspecified; F12.90 Cannabis use, unspecified, uncomplicated; B18.2 Chronic viral hepatitis C; Z79.899 Other long term (current) drug therapy; A59.00 Urogenital trichomoniasis, unspecified
CPT/HCPCS: 00123; 36415; 80048; 80053; 80307; 80354; 84145; 85027; 85652; 87040; 87389; 87491; 87591; 96365; 96366; 96367; 99285; J1650; 73590; 74177; 80202; 81003; 81015; 82565; 83735; 84703; 85025; 85610; 86140; 86592; 93005; 93010; 99223; 99233; 99239; J0692; J0696; J3370; J3372; J3490; Q9967